=== PATIENT | female | born 1955 | race Caucasian/White ===

== ENCOUNTER 2019-01-12 08:18 | Inpatient (IN) | payer MEDICAID ==
[~2019-01-12] VITALS: Ht 160 cm; Wt 70.5 kg
--- NOTE | 2019-01-12 08:19 | NUR ---
ED Nurse Note: pt presents to ED c/o 12/30 right sided px in her abd and back that she describes as "stabbing and sharp." pt statest he px started last night and is accompanied with nausea, pt denies vomiting. she had a procedure done last wed for gastric drainage that is supposed to be draining internally. pt reports "feeling a burst" this AM and woke up wet, the dressing around the port is also saturated. she removed the cap to the port and green drainage came out that she is collecting into a ziploc bag. there is about 150 mL of dark green fluid in the bag. pt has 2 ports- one on her R neck and one on her chest that appear clean and intact. pt has a h/o stage 4 pancreatic CA that she started chemo for 2 days ago. pt's oncologist is Dr. Morales of [facility] network. her number is [phone] the surgeon who performed the procedure is Dr. Snider: [phone]
--- NOTE | 2019-01-12 08:22 | Emergency Room Report ---
History of Present Illness General Chief Complaint: Abdominal Pain Source: Patient, EMS Present Illness HPI 63yo F With history of pancreatic cancer comes to the ER for abdominal pain started just an hour prior to arrival. Patient reports she has an abdominal drain and thinks the cap came off of it, triggering the pain. She reports her drain placement was at [facility] and her first and last chemo was just 1 week ago. She denies f/c, vomiting, but reports that her cap came off in the middle of the night. Allergies: Coded Allergies: No Known Allergies (Unverified , 01/12/19) Patient History Past Medical History: see triage record Reviewed Nursing Documentation: PMH: Agreed; PSxH: Agreed Review of Systems All Other Systems: negative except mentioned in HPI Physical Exam Vital Signs Date Time Temp Pulse Resp B/P (MAP) Pulse Ox O2 Delivery O2 Flow Rate FiO2 01/12/19 08:14 97.9 88 20 110/74 (86) 98 Room Air Sp02 EP Interpretation: reviewed, normal General Appearance: alert, moderate distress Head: normocephalic Eyes: bilateral eye normal inspection, bilateral eye PERRL, bilateral eye EOMI ENT: normal ENT inspection, hearing grossly normal, normal pharynx, no angioedema, normal voice, moist mucus membranes Neck: normal inspection, full range of motion, supple, supple/symm/no masses Respiratory: chest non-tender, lungs clear, normal breath sounds, chest symmetrical, palpation of chest normal Cardiovascular #1: normal peripheral pulses, regular rate, rhythm Cardiovascular #2: 2+ radial (R), 2+ radial (L) Gastrointestinal: soft, no guarding, no rebound, tenderness - diffusely, other - anterior abdominal drain with bile in tubing and collection bag; no exit site erythema/warmth/purulence Rectal: deferred Genitourinary: normal inspection, no CVA tenderness Musculoskeletal: back normal, gait/station normal, normal range of motion, non- tender, no calf tenderness Neurologic: alert, responsive, sustainable agriculture specialist III-XII nml as tested, motor strength/tone normal, sensory intact, speech normal Psychiatric: judgement/insight normal, memory normal, mood/affect normal Skin: no rash, pallor, other - R chest port C/D/I no erythema or warmth Lymphatic: no adenopathy Medical Decision Making Diagnostic Impression: Primary Impression: Pancreatic cancer ER Course And found to have elevated liver enzymes, as well as low potassium, was given p.o. and IV potassium, CT scan revealed evidence for pancreatic mass which is not a new finding, she was still having intractable pain, despite Dilaudid and then morphine, and will be admitted for pain control. Rhythm Strip Diag. Results Rhythm Strip Time: 11:53 EP Interpretation: yes Rate: 107 Rhythm: NSR, no PVC's, no ectopy CT/MRI/US Diagnostic Results CT/MRI/US Diagnostic Results : Imaging Test Ordered: ct ap Impression pancreatic mass, bili drain in place Last Vital Signs Date Time Temp Pulse Resp B/P (MAP) Pulse Ox O2 Delivery O2 Flow Rate FiO2 01/12/19 08:14 97.9 88 20 110/74 (86) 98 Room Air Disposition: ADMITTED INPATIENT Condition: Stable DOUGLAS CHAUDHARY M.D Jan 12, 2019 08:22
[2019-01-12] MEDS ORDERED: HYDROmorphone 1mg/ml Carpuject IVP ONE (08:30)
[2019-01-12] MEDS ORDERED: Omnipaque-300 100ml vial INJ PRN (08:30)
[2019-01-12 09:05] VITALS: BP 110/74
[2019-01-12] MEDS ORDERED: NORCO 10-325 T1 EACH ORAL (09:06)
[2019-01-12 09:09] LABS: HEMATOCRIT 39.2 % (37.0-47.0); HEMOGLOBIN 13.1 G/DL (12.0-16.0); MEAN CORPUSCULAR VOLUME 94 FL (80-99); PLATELET COUNT 503 K/UL (150-450); RED BLOOD COUNT 4.16 M/UL (4.20-5.40); RED CELL DISTRIBUTION WIDTH 13.1 % (11.6-14.8); WHITE BLOOD COUNT 9.8 K/UL (4.8-10.8)
[2019-01-12] MEDS ORDERED: COMPAZINE10 MG ORAL (09:09)
[2019-01-12] MEDS ORDERED: PEPCID COMPLET1 EACH PO (09:09)
[2019-01-12] MEDS ORDERED: TYLENOL EXTRA500 MG ORAL (09:09)
[2019-01-12] MEDS ORDERED: MIRALAX17 G2 ORAL (09:10)
--- NOTE | 2019-01-12 09:10 | NUR ---
ED Nurse Note: ERMD notified of pt potassium of 2.9
[2019-01-12 09:16] LABS: ANION GAP 11 mmol/L (5-15); BLOOD UREA NITROGEN 15 mg/dL (7-18); CALCIUM 8.7 MG/DL (8.5-10.1); CARBON DIOXIDE 25 MMOL/L (21-32); CHLORIDE 100 MMOL/L (98-107); CREATININE 0.6 MG/DL (0.55-1.30); POTASSIUM 2.9 MMOL/L (3.5-5.1); SODIUM 136 MMOL/L (136-145)
[2019-01-12 09:28] LABS: ALANINE AMINOTRANSFERASE 90 U/L (12-78); ALBUMIN 2.3 G/DL (3.4-5.0); ALBUMIN/GLOBULIN RATIO 0.5 (1.0-2.7); ALKALINE PHOSPHATASE 306 U/L (46-116); ASPARTATE AMINO TRANSFERASE 88 U/L (15-37); BILIRUBIN,TOTAL 1.5 MG/DL (0.2-1.0)
--- NOTE | 2019-01-12 09:28 | NUR ---
ED Nurse Note: CT called to check on 4, pt consent signed
[2019-01-12 09:29] LABS: BILIRUBIN,DIRECT 0.8 MG/DL (0.0-0.3)
--- NOTE | 2019-01-12 09:38 | NUR ---
ED Nurse Note: CT is here to transport pt down for scan. HR is 105, BP 152/ 104, RR: 22, SpO2: 97% on room air
--- NOTE | 2019-01-12 09:50 | NUR ---
ED Nurse Note: pt has returned from CT, asking for something to drink. ERMD says ice chips only. vital signs are: RR 25, SpO2: 94% on room air, HR: 120, BP: 154/92
[2019-01-12 10:04] VITALS: BP 142/96
--- NOTE | 2019-01-12 10:19 | NUR ---
ED Nurse Note: pt is unable to provide a urine sample at this time. ERMD aware.
--- NOTE | 2019-01-12 10:36 | Diagnostic Imaging Report ---
CT ABDOMEN AND PELVIS WITH CONTRAST INDICATION: Abdominal pain TECHNIQUE: Continuous helical transaxial imaging of the abdomen and pelvis was obtained from the lung bases to the pubic symphysis during intravenous contrast administration. Coronal 2-D reformats were also obtained. Study obtained in a Siemens sensation [address] Automatic Exposure Control was utilized. Total Dose length Product (DLP): 830.[address] Dose Index Volume (CTDIvol): 15.1 mGy COMPARISON: None FINDINGS: Lower chest:: Basilar subsegmental atelectasis. Hepatobiliary:: There is mild intrahepatic biliary ductal dilatation. Percutaneous left lobe approach biliary drain terminates in the duodenum. Gallbladder is not distended but demonstrates thickened wall with pericholecystic fluid. Genitourinary:: Subcentimeter right renal hypodensity likely representing cysts. No hydronephrosis. Adrenals:: Unremarkable. Pancreas:: The region of the head and proximal body of the pancreas, there is ill-defined hypoenhancing soft tissue likely corresponding to patient's stated history of pancreatic cancer. Pancreatic duct is normal in caliber. The portal vein is severely attenuated at the level of the pancreatic head and not visualized to the confluence of the SMV, suggesting occlusion. Soft tissue density appears to encase the superior mesenteric artery, though evaluation of mesenteric vasculature is limited without complete phasic pancreatic protocol. Gastrointestinal:: Moderate hiatal hernia. No evidence of obstruction. Appendix is normal. Spleen: : Remarkable. Peritoneum:: Small volume ascites. There is diffuse peripancreatic and pericholecystic peritoneal fat stranding which extends into the right lower quadrant. There are multiple prominent portal and gastrohepatic lymph nodes. Bones and soft tissues:: Bones are diffusely demineralized. There is multilevel anterior wedging of thoracic and lumbar vertebral bodies. For example, wedge deformity of T12 vertebral body and L2 vertebral bodies. There is compression fracture with less than 25% loss of body height of L5, likely chronic given degree of sclerosis. IMPRESSION: 1. Appropriately positioned percutaneous left biliary drain with mild intrahepatic biliary ductal dilatation. 2. Ill-defined pancreatic head/proximal body mass, likely corresponding to stated history of pancreatic neoplasm. Please note evaluation of size and vascular involvement of pancreatic masses is incomplete prior examinations and without multiphasic pancreatic protocol. 3. 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 SMV confluence is not visualized. 4. Color wall thickening with pericholecystic fluid; in the absence of distended gallbladder, these findings are critical for acute pancreatitis and clinical correlation is recommended. The CT scanner at [facility] is accredited by the [employer] and the scans are performed using protocols designed to limit radiation exposure to as low as reasonably achievable to attain images of sufficient resolution adequate for diagnostic evaluation.
[2019-01-12] MEDS ORDERED: Morphine Sulfate 4mg/ml Inj (IV USE ONLY) IVP ONE (11:00)
[2019-01-12 11:15] LABS: APPEARANCE,URINE CLEAR; BILIRUBIN, URINE NEGATIVE (NEGATIVE); COLOR,URINE BROWN; GLUCOSE, URINE (UA) NEGATIVE (NEGATIVE); KETONES,URINE NEGATIVE (NEGATIVE); LEUKOCYTE ESTERASE ,URINE 1+ (NEGATIVE); NITRITE,URINE NEGATIVE (NEGATIVE); PH,URINE 5 (4.5-8.0); PROTEIN,URINE 2+ (NEGATIVE); UROBILINOGEN,URINE NORMAL MG/DL (0.0-1.0)
[2019-01-12 11:48] VITALS: BP 119/79
--- NOTE | 2019-01-12 12:50 | NUR ---
ED Nurse Note: 409 nurse unable to take report at this time, will call back in 10 min
--- NOTE | 2019-01-12 12:55 | NUR ---
ED Nurse Note: called and give report to nurse CAITIE Salcido
--- NOTE | 2019-01-12 13:38 | GI Initial Consult Note ---
History of Present Illness General Date patient seen: Jan 12, 2019 Time patient seen: 13:31 Reason for Hospitalization: Abdominal Pain Referring physician: LOU BONNER Reason for Consultation: ABDOMINAL PAIN Present Illness HPI GI consulted for abdominal pain. This is a 63-year-old female patient with history of recently diagnosed pancreatic cancer back in November 2018 presented today to the emergency room with complaint of abdominal pain for approximately 1 hour. Patient is status post a biliary drain placement at [facility] approximately 1 week ago. She reported that she had a first treatment of chemotherapy this past Thursday. The patient denied any nausea vomiting, denies any constipation or diarrhea. She states her pain medication was unable to relieve her pain. Laboratory data reviewed; no leukocytosis, no anemia, total bilirubin 1.8, AST 88, ALT 90, alkaline phosphatase 306, lipase of 286, potassium 2.9. Home Meds Reported Medications Polyethylene Glycol 3350* (MIRALAX*) 17 Gm Powd.pack, ORAL DAILY, PACKET 01/12/19 Famotidine/Ca Carb/Mag Hydrox (PEPCID COMPLETE TABLET CHEW) 1 Each Tab.chew, PO , TAB 01/12/19 Acetaminophen* (TYLENOL EXTRA STRENGTH*) 500 Mg Tablet, 500 MG ORAL Q6H PRN for Mild Pain/Temp > 100.5, TAB 0 Refills 01/12/19 Prochlorperazine (COMPAZINE*) 10 Mg Tablet, 10 MG ORAL Q6H PRN for Nausea & Vomiting, TAB 01/12/19 Hydrocodone Bit/Acetaminophen 10-325* (NORCO 10-325*) 1 Each Tablet, 1 TAB ORAL Q6H PRN for For Pain, #10 TAB 0 Refills PRN PAIN 01/12/19 Med list reviewed/reconciled: Yes Allergies: Coded Allergies: No Known Allergies (Unverified , 01/12/19) Patient History History Provided By: Patient, Medical Record Social History: Denies: smoking, alcohol use, drug use, other Review of Systems All Other Systems: negative except mentioned in HPI Physical Exam Vital Signs Date Time Temp Pulse Resp B/P (MAP) Pulse Ox O2 Delivery O2 Flow Rate FiO2 01/12/19 08:14 97.9 88 20 110/74 (86) 98 Room Air Sp02 EP Interpretation: reviewed, normal Labs Laboratory Tests Test 01/12/19 08:50 01/12/19 10:49 White Blood Count 9.8 K/UL (4.8-10.8) Red Blood Count 4.16 M/UL (4.20-5.40) L Hemoglobin 13.1 G/DL (12.0-16.0) Hematocrit 39.2 % (37.0-47.0) Mean Corpuscular Volume 94 FL (80-99) Mean Corpuscular Hemoglobin 31.5 PG (27.0-31.0) H Mean Corpuscular Hemoglobin Concent 33.3 G/DL (32.0-36.0) Red Cell Distribution Width 13.1 % (11.6-14.8) Platelet Count 503 K/UL (150-450) H Mean Platelet Volume 7.6 FL (6.5-10.1) Neutrophils (%) (Auto) % (45.0-75.0) Lymphocytes (%) (Auto) % (20.0-45.0) Monocytes (%) (Auto) % (1.0-10.0) Eosinophils (%) (Auto) % (0.0-3.0) Basophils (%) (Auto) % (0.0-2.0) Differential Total Cells Counted 100 Neutrophils % (Manual) 94 % (45-75) H Lymphocytes % (Manual) 4 % (20-45) L Monocytes % (Manual) 2 % (1-10) Eosinophils % (Manual) 0 % (0-3) Basophils % (Manual) 0 % (0-2) Band Neutrophils 0 % (0-8) Platelet Estimate Increased H Platelet Morphology Normal Prothrombin Time 10.9 SEC (9.30-11.50) Prothromb Time International Ratio 1.0 (0.9-1.1) Activated Partial Thromboplast Time 25 SEC (23-33) Sodium Level 136 MMOL/L (136-145) Potassium Level 2.9 MMOL/L (3.5-5.1) L Chloride Level 100 MMOL/L (98-107) Carbon Dioxide Level 25 MMOL/L (21-32) Anion Gap 11 mmol/L (5-15) Blood Urea Nitrogen 15 mg/dL (7-18) Creatinine 0.6 MG/DL (0.55-1.30) Estimat Glomerular Filtration Rate > 60 mL/min (>60) Glucose Level 114 MG/DL (74-106) H Calcium Level 8.7 MG/DL (8.5-10.1) Total Bilirubin 1.5 MG/DL (0.2-1.0) H Direct Bilirubin 0.8 MG/DL (0.0-0.3) H Aspartate Amino Transf (AST/SGOT) 88 U/L (15-37) H Alanine Aminotransferase (ALT/SGPT) 90 U/L (12-78) H Alkaline Phosphatase 306 U/L (46-116) H Total Protein 6.7 G/DL (6.4-8.2) Albumin 2.3 G/DL (3.4-5.0) L Globulin 4.4 g/dL Albumin/Globulin Ratio 0.5 (1.0-2.7) L Lipase 286 U/L (73-393) Urine Color Brown Urine Appearance Clear Urine pH 5 (4.5-8.0) Urine Specific [place] 1.010 (1.005-1.035) Urine Protein 2+ (NEGATIVE) H Urine Glucose (UA) Negative (NEGATIVE) Urine Ketones Negative (NEGATIVE) Urine Blood Negative (NEGATIVE) Urine Nitrite Negative (NEGATIVE) Urine Bilirubin Negative (NEGATIVE) Urine Urobilinogen Normal MG/DL (0.0-1.0) Urine Leukocyte Esterase 1+ (NEGATIVE) H Urine RBC 0-2 /HPF (0 - 2) Urine WBC 2-4 /HPF (0 - 2) Urine Squamous Epithelial Cells Few /LPF (NONE/OCC) Urine Bacteria Few /HPF (NONE) Urine Mucus Few /LPF (NONE/OCC) H General Appearance: well appearing, no apparent distress, alert Head: normocephalic EENT: PERRL/EOMI, normal ENT inspection Neck: supple Respiratory: normal breath sounds, no respiratory distress Cardiovascular: normal rate Gastrointestinal: normal inspection, non tender, soft, normal bowel sounds, non -distended Rectal: deferred Genitourinary: no CVA tenderness Musculoskeletal: normal inspection, back normal Neurologic: normal inspection, alert, oriented x3, responsive Psychiatric: normal inspection, judgement/insight normal, memory normal Skin: normal inspection, normal color, no rash, warm/dry, palpation normal, well hydrated Lymphatic: normal inspection, no adenopathy Current Medications Current Medications Medications (Trade) Dose Ordered Sig/Zuleima Route PRN Reason Start Time Stop Time Status Last Admin Dose Admin Iohexol (OMNIPAQUE-300 100ml) 100 ml NOW PRN INJ Radiology Procedure 01/12/19 08:30 01/14/19 08:30 GI: Plan Problems: (1) Abdominal pain (2) Biliary drain displacement (3) Pancreatic cancer Plan Abdominal pelvis CT reviewed 1. Appropriately positioned percutaneous left biliary drain with mild intrahepatic biliary ductal dilatation. 2. Ill-defined pancreatic head/proximal body mass, likely corresponding to stated history of pancreatic neoplasm. Please note evaluation of size and vascular involvement of pancreatic masses is incomplete prior examinations and without multiphasic pancreatic protocol. 3. 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 SMV confluence is not visualized. 4. Color wall thickening with pericholecystic fluid; in the absence of distended gallbladder, these findings are critical for acute pancreatitis and clinical correlation is recommended. No plans for GI procedures at this time. Symptomatic treatment Patient may benefit from a surgical consultation given possible biliary drain displacement. Pain management ppi Trend LFTs will follow with additional recommendations Discussed with Dr. Rocha. Thank you for this patient referral, we will follow. The patient was seen and examined at bedside and all new and available data was reviewed in the patients chart. I agree with the above findings, impression and plan. (Patient seen earlier today. Signature stamp does not reflect patient encounter time.). - MD Marybeth Cook,[facility] STRUCTURAL TECHNICIAN Jan 12, 2019 13:38
[2019-01-12] MEDS ORDERED: HYDROmorphone 1mg/ml Carpuject IVP PRN (13:45)
--- NOTE | 2019-01-12 14:44 | NUR ---
NURSE NOTES: I received telephone report from CAITIE Banerjee ER; patient awake, alert x4; on room air, no sing of distress and shortness of breath; no sing of chest pain; IV LAC 18G flushes well; belonging list signed by ER nurse and receiving nurse; there is a bile drainage on the right side; call light within reach; will keep monitoring.
[2019-01-12] MEDS: D5 1/2NS w/KCl 20mEq 1,000 ML IV SCH (14:56)
[2019-01-12 14:57] VITALS: BP 104/75
--- NOTE | 2019-01-12 14:57 | Consultation ---
History of Present Illness General Date patient seen: Jan 12, 2019 Reason for Hospitalization: Abdominal Pain Present Illness HPI 63-year-old female patient with history of recently diagnosed pancreatic cancer in November 2018 presented to the emergency [place] [facility] [place] complaint of abdominal pain for approximately 1 hour. Patient is status post a biliary drain placement at [facility] approximately 1 week ago. She reported that she had a first treatment of chemotherapy this past Thursday. The patient denied any nausea vomiting, denies any constipation or diarrhea. She states her pain medication was unable to relieve her pain. no fever or chills. labs as below. CT noted. surgery called to assist with care and management. tube checked The patient denied any nausea vomiting, denies any constipation or diarrhea. She states her pain medication was unable to relieve her pain. states pain all over. pain in hips, legs, abd, arms. asking for more pain medication Allergies: Coded Allergies: No Known Allergies (Unverified , 01/12/19) Medication History Scheduled Polyethylene Glycol 3350* (Miralax*), Unknown Dose ORAL DAILY, (Reported) Scheduled PRN Acetaminophen* (Tylenol Extra Strength*), 500 MG ORAL Q6H PRN for Mild Pain/ Temp > 100.5, (Reported) Hydrocodone Bit/Acetaminophen 10-325* ([place] 10-325*), 1 TAB ORAL Q6H PRN for For Pain, (Reported) Prochlorperazine (Compazine*), 10 MG ORAL Q6H PRN for Nausea & Vomiting, ( Reported) Miscellaneous Medications Famotidine/Ca Carb/Mag Hydrox (Pepcid Complete Tablet Chew), Unknown Dose PO, ( Reported) Patient History History Provided By: Patient, Medical Record, PMD Healthcare decision maker Resuscitation status Advanced Directive on File Past Medical/Surgical History Past Medical/Surgical History: (1) Abdominal pain (2) Biliary drain displacement (3) Pancreatic cancer Review of Systems Review of Symptoms General ROS: no weight loss or fever Psychological ROS: no depression or mood changes, no memory loss Ophthalmic ROS: no visual changes or eye irritation ENT ROS: no nasal congestion, hearing loss, dizziness Allergy and Immunology ROS: no allergic symptoms or urticaria Hematological and Lymphatic ROS: no swollen glands, unusual bleeding or bruising Endocrine ROS: no polyuria, polydipsia, weight changes, temperature intolerance Respiratory ROS: no cough, shortness of breath, or wheezing Cardiovascular ROS: no chest pain or dyspnea on exertion Gastrointestinal ROS: abdominal pain, bright red blood in stool. Musculoskeletal ROS: no myalgias or arthralgias Neurological ROS: no TIA or stroke symptoms Dermatological ROS: no new or changing skin lesions, rashes or pruritis Physical Exam Physical Exam General appearance: alert, cooperative, no distress, appears stated age Head: Normocephalic, without obvious abnormality, atraumatic Eyes: conjunctivae/corneas clear. PERRL, EOM's intact. Fundi benign Throat: Lips, mucosa, and tongue normal. Teeth and gums normal Neck: supple, symmetrical, trachea midline, no adenopathy, thyroid: not enlarged, symmetric, no tenderness/mass/nodules, no carotid bruit and no JVD Lungs: clear to auscultation bilaterally Heart: regular rate and rhythm, S1, S2 normal, no murmur, click, rub or gallop Abdomen: soft, minimal tender. Bowel sounds normal. No masses, no organomegaly Extremities: extremities normal, atraumatic, no cyanosis or edema +drain cap Pulses: 2+ and symmetric Skin: Skin color, texture, turgor normal. No rashes or lesions Neurologic: Grossly normal Last 24 Hour Vital Signs Date Time Temp Pulse Resp B/P (MAP) Pulse Ox O2 Delivery O2 Flow Rate FiO2 01/12/19 11:49 97.9 01/12/19 11:48 27 119/79 96 Room Air 01/12/19 10:04 25 142/96 97 Room Air 01/12/19 10:00 97.9 01/12/19 09:05 97.9 20 110/74 98 Room Air 01/12/19 09:05 88 20 Room Air 01/12/19 08:14 97.9 88 20 110/74 (86) 98 Room Air Laboratory Tests Test 01/12/19 08:50 01/12/19 10:49 White Blood Count 9.8 K/UL (4.8-10.8) Red Blood Count 4.16 M/UL (4.20-5.40) L Hemoglobin 13.1 G/DL (12.0-16.0) Hematocrit 39.2 % (37.0-47.0) Mean Corpuscular Volume 94 FL (80-99) Mean Corpuscular Hemoglobin 31.5 PG (27.0-31.0) H Mean Corpuscular Hemoglobin Concent 33.3 G/DL (32.0-36.0) Red Cell Distribution Width 13.1 % (11.6-14.8) Platelet Count 503 K/UL (150-450) H Mean Platelet Volume 7.6 FL (6.5-10.1) Neutrophils (%) (Auto) % (45.0-75.0) Lymphocytes (%) (Auto) % (20.0-45.0) Monocytes (%) (Auto) % (1.0-10.0) Eosinophils (%) (Auto) % (0.0-3.0) Basophils (%) (Auto) % (0.0-2.0) Differential Total Cells Counted 100 Neutrophils % (Manual) 94 % (45-75) H Lymphocytes % (Manual) 4 % (20-45) L Monocytes % (Manual) 2 % (1-10) Eosinophils % (Manual) 0 % (0-3) Basophils % (Manual) 0 % (0-2) Band Neutrophils 0 % (0-8) Platelet Estimate Increased H Platelet Morphology Normal Prothrombin Time 10.9 SEC (9.30-11.50) Prothromb Time International Ratio 1.0 (0.9-1.1) Activated Partial Thromboplast Time 25 SEC (23-33) Sodium Level 136 MMOL/L (136-145) Potassium Level 2.9 MMOL/L (3.5-5.1) L Chloride Level 100 MMOL/L (98-107) Carbon Dioxide Level 25 MMOL/L (21-32) Anion Gap 11 mmol/L (5-15) Blood Urea Nitrogen 15 mg/dL (7-18) Creatinine 0.6 MG/DL (0.55-1.30) Estimat Glomerular Filtration Rate > 60 mL/min (>60) Glucose Level 114 MG/DL (74-106) H Calcium Level 8.7 MG/DL (8.5-10.1) Total Bilirubin 1.5 MG/DL (0.2-1.0) H Direct Bilirubin 0.8 MG/DL (0.0-0.3) H Aspartate Amino Transf (AST/SGOT) 88 U/L (15-37) H Alanine Aminotransferase (ALT/SGPT) 90 U/L (12-78) H Alkaline Phosphatase 306 U/L (46-116) H Total Protein 6.7 G/DL (6.4-8.2) Albumin 2.3 G/DL (3.4-5.0) L Globulin 4.4 g/dL Albumin/Globulin Ratio 0.5 (1.0-2.7) L Lipase 286 U/L (73-393) Urine Color Brown Urine Appearance Clear Urine pH 5 (4.5-8.0) Urine Specific [place] 1.010 (1.005-1.035) Urine Protein 2+ (NEGATIVE) H Urine Glucose (UA) Negative (NEGATIVE) Urine Ketones Negative (NEGATIVE) Urine Blood Negative (NEGATIVE) Urine Nitrite Negative (NEGATIVE) Urine Bilirubin Negative (NEGATIVE) Urine Urobilinogen Normal MG/DL (0.0-1.0) Urine Leukocyte Esterase 1+ (NEGATIVE) H Urine RBC 0-2 /HPF (0 - 2) Urine WBC 2-4 /HPF (0 - 2) Urine Squamous Epithelial Cells Few /LPF (NONE/OCC) Urine Bacteria Few /HPF (NONE) Urine Mucus Few /LPF (NONE/OCC) H Height (Feet): 5 Height (Inches): 3.00 Weight (Pounds): 165 Medications Current Medications Medications (Trade) Dose Ordered Sig/Zuleima Route PRN Reason Start Time Stop Time Status Last Admin Dose Admin Dextrose (Dextrose 50%) 25 ml Q30M PRN IV Hypoglycemia 01/12/19 13:45 02/11/19 13:44 Dextrose (Dextrose 50%) 50 ml Q30M PRN IV Hypoglycemia 01/12/19 13:45 02/11/19 13:44 Dextrose/ Electrolytes 1,000 ml @ 75 mls/hr [id number] IV 01/12/19 15:00 02/11/19 14:59 Hydromorphone HCl (Dilaudid) 1 mg Q4H PRN IVP Moderate Pain (Pain Scale 4-6) 01/12/19 13:45 01/19/19 13:44 Hydromorphone HCl (Dilaudid) 2 mg Q4H PRN IVP Severe Pain (Pain Scale 7-10) 01/12/19 13:45 01/19/19 13:44 Iohexol (OMNIPAQUE-300 100ml) 100 ml NOW PRN INJ Radiology Procedure 01/12/19 08:30 01/14/19 08:30 Ondansetron HCl (Zofran) 4 mg Q6H PRN IVP Nausea & Vomiting 01/12/19 13:45 02/11/19 13:44 Pantoprazole (Protonix) 40 mg DAILY IV 01/13/19 09:00 02/12/19 08:59 Assessment/Plan Problem List: (1) Abdominal pain Assessment & Plan: 63-year-old female patient with history of recently diagnosed pancreatic cancer in November 2018 presented to the emergency room [place] [facility] [place] complaint of abdominal pain for approximately 1 hour. Patient is status post a biliary drain placement at [facility] approximately 1 week ago. She reported that she had a first treatment of chemotherapy this past Thursday. The patient denied any nausea vomiting, denies any constipation or diarrhea. She states her pain medication was unable to relieve her pain. no fever or chills. labs as below. C Tnoted. surgery called to assist with care and management. tube checked okay for diet leave tube in place with cap stable otherwise from surgical standpoint no acute surgical intervention planned iv fluids trend labs will monitor and follow with exam thank you ICD Codes: R10.9 - Unspecified abdominal pain SNOMED: 65029369 (2) Biliary drain displacement Assessment & Plan: IMPRESSION: 1. Appropriately positioned percutaneous left biliary drain with mild intrahepatic biliary ductal dilatation. 2. Ill-defined pancreatic head/proximal body mass, likely corresponding to stated history of pancreatic neoplasm. Please note evaluation of size and vascular involvement of pancreatic masses is incomplete prior examinations and without multiphasic pancreatic protocol. 3. 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 SMV confluence is not visualized. 4. Color wall thickening with pericholecystic fluid; in the absence of distended gallbladder, these findings are critical for acute pancreatitis and clinical correlation is recommended. ICD Codes: T85.520A - Displacement of bile duct prosthesis, initial encounter SNOMED: 384233853 (3) Pancreatic cancer Assessment & Plan: currently receiving chemo cont with outpatient chemo Tx ICD Codes: C25.9 - Malignant neoplasm of pancreas, unspecified SNOMED: 506151617 Jim Gates Jan 12, 2019 14:57
[2019-01-12 16:45] VITALS: BP 122/75
[2019-01-12] MEDS ORDERED: Morphine Sulfate 4mg/ml Inj (IV USE ONLY) IVP PRN (16:45)
[2019-01-12] MEDS: Pantoprazole Inj IVP SCH (17:10)
[2019-01-12] MEDS: Morphine Sulfate 4mg/ml Inj (IV USE ONLY) IVP PRN ×2 (17:12→21:14)
--- NOTE | 2019-01-12 19:20 | NUR ---
NURSE NOTES: Received report from CAITIE Chow. AAO x 4, on room air. IV sites intact and running D5 1/2 NS with KCL 75cc/hr. Pt has bile drainage bag on R upper quadrant and intact. Pt c/o pain 9/10 on abd. Bed locked, lowest position, side rails up x 2, alarm on, call light within reach. Will continue to monitor.
--- NOTE | 2019-01-12 19:50 | NUR ---
HAND-OFF: Report given to CAITIE Casarez.
[2019-01-12 20:00] VITALS: BP 110/75
[2019-01-13] VITALS: BP 122/80
[2019-01-13] MEDS: Morphine Sulfate 4mg/ml Inj (IV USE ONLY) IVP PRN ×5 (00:58→17:22)
--- NOTE | 2019-01-13 01:01 | NUR ---
NURSE NOTES: Pt is really in pain 10/10 on her abdomen. States pain med was unable to relieve pain. Morphine 8mg IV given @ 2113. RN administered 8mg IV @ 57. Charge nurse aware it. Pt asked if pain med frequency can be changed. Left message Dr. Rocha and waiting for call back.
[2019-01-13 04:00] VITALS: BP 119/78
[2019-01-13] MEDS: D5 1/2NS w/KCl 20mEq 1,000 ML IV SCH ×2 (04:58→17:40)
[2019-01-13 06:33] LABS: HEMATOCRIT 34.6 % (37.0-47.0); HEMOGLOBIN 11.9 G/DL (12.0-16.0); MEAN CORPUSCULAR VOLUME 95 FL (80-99); PLATELET COUNT 403 K/UL (150-450); RED BLOOD COUNT 3.66 M/UL (4.20-5.40); RED CELL DISTRIBUTION WIDTH 12.9 % (11.6-14.8); WHITE BLOOD COUNT 12.7 K/UL (4.8-10.8)
--- NOTE | 2019-01-13 07:05 | NUR ---
NURSE NOTES: HANDOFF RECEIVED FROM CAITIE CARTAGENA. PATIENT AWAKE AND ALERT AND ABLE TO MAKE NEEDS KNOWN. PATIENT IV IS CLEAN DRY AND INTACT RUNNING PRESCRIBED FLUIDS. BED IN THE LOW AND LOCKED POSITION, CALL LIGHT WITHIN REACH. PATIENT HAS A BILIARY DRAIN THAT IS PATENT AND DRAINING. WILL CONTINUE TO MONITOR.
[2019-01-13 07:12] LABS: ALANINE AMINOTRANSFERASE 68 U/L (12-78); ALBUMIN 1.7 G/DL (3.4-5.0); ALBUMIN/GLOBULIN RATIO 0.4 (1.0-2.7); ALKALINE PHOSPHATASE 194 U/L (46-116); ANION GAP 5 mmol/L (5-15); ASPARTATE AMINO TRANSFERASE 45 U/L (15-37); BILIRUBIN,TOTAL 1.2 MG/DL (0.2-1.0); BLOOD UREA NITROGEN 9 mg/dL (7-18); CALCIUM 8.1 MG/DL (8.5-10.1); CARBON DIOXIDE 27 MMOL/L (21-32); CHLORIDE 102 MMOL/L (98-107); CREATININE 0.4 MG/DL (0.55-1.30); POTASSIUM 3.7 MMOL/L (3.5-5.1); SODIUM 134 MMOL/L (136-145)
[2019-01-13 07:15] LABS: AMYLASE 14 U/L (25-115)
[2019-01-13 07:17] LABS: BILIRUBIN,DIRECT 0.8 MG/DL (0.0-0.3)
[2019-01-13 07:32] LABS: INR 1.3 (0.9-1.1)
--- NOTE | 2019-01-13 07:41 | NUR ---
HAND-OFF: Report given to CAITIE Tillman.
[2019-01-13 08:00] VITALS: BP 126/79
[2019-01-13] MEDS ORDERED: Pantoprazole Inj IV SCH (09:00)
[2019-01-13] MEDS: Pantoprazole Inj IVP SCH (09:10)
--- NOTE | 2019-01-13 11:17 | NUR ---
*-* INSURANCE *-* ALL AVAILABLE CLINICALS HAVE BEEN FAXED TO: REF#[id number] - FOR TRACKING PURPOSES THIS IS SHARED RISK NO CM ASSIGNED PH#[phone] FAX#[phone] REVIEWS/CLINICALS & [facility]LY [facility] TRACKING#[id number] CM: TAMMY PH#[phone] EXT [phone] FAX#[phone] REVIEWS/CLINICALS
[2019-01-13 12:00] VITALS: BP 117/74
--- NOTE | 2019-01-13 12:58 | GI Progress Note ---
Assessment/Plan Problems: (1) Pancreatic cancer ICD Codes: C25.9 - Malignant neoplasm of pancreas, unspecified SNOMED: 587810602 (2) Biliary drain displacement ICD Codes: T85.520A - Displacement of bile duct prosthesis, initial encounter SNOMED: 779086328 (3) Abdominal pain ICD Codes: R10.9 - Unspecified abdominal pain SNOMED: 18189725 Status: unchanged Status Narrative Discussed with Dr. Rocha Assessment/Plan Abdominal pelvis CT reviewed 1. Appropriately positioned percutaneous left biliary drain with mild intrahepatic biliary ductal dilatation. 2. Ill-defined pancreatic head/proximal body mass, likely corresponding to stated history of pancreatic neoplasm. Please note evaluation of size and vascular involvement of pancreatic masses is incomplete prior examinations and without multiphasic pancreatic protocol. 3. 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 SMV confluence is not visualized. 4. Color wall thickening with pericholecystic fluid; in the absence of distended gallbladder, these findings are critical for acute pancreatitis and clinical correlation is recommended. No plans for GI procedures at this time. Symptomatic treatment surgical recommendations, no interventions at this time consider pain service, patient receiving 8mg morphine IVq4 with min to no relief. ppi Trend LFTs advance diet as tolerated will follow with additional recommendations The patient was seen and examined at bedside and all new and available data was reviewed in the patients chart. I agree with the above findings, impression and plan. (Patient seen earlier today. Signature stamp does not reflect patient encounter time.). - Indra Rocha MD Subjective Subjective Patient continues to complain of severe abdominal pain States 8 mg of morphine is not relieving her pain Objective Last 24 Hour Vital Signs Date Time Temp Pulse Resp B/P (MAP) Pulse Ox O2 Delivery O2 Flow Rate FiO2 01/13/19 12:00 98.4 119 17 117/74 (88) 93 01/13/19 09:00 Room Air 01/13/19 08:00 98.2 112 19 126/79 (95) 98 01/13/19 04:00 99.2 115 17 119/78 (92) 92 01/13/19 00:00 99.6 115 18 122/80 (94) 92 01/12/19 21:00 Room Air 01/12/19 20:00 99.6 118 17 110/75 (87) 92 01/12/19 17:42 102.0 01/12/19 16:45 102.0 105 20 122/75 (91) 95 01/12/19 15:47 Room Air 01/12/19 14:57 98.0 107 18 104/75 (85) 94 Intake and Output 01/12/19 01/13/19 19:00 07:00 Intake Total 450 ml 900 ml Output Total 120 ml 450 ml Balance 330 ml 450 ml Intake Oral 150 ml 0 ml IV Total 300 ml 900 ml Output Urine Total 120 ml Drainage Total 450 ml # Voids 1 3 Laboratory Tests Test 01/13/19 05:30 White Blood Count 12.7 K/UL (4.8-10.8) H Red Blood Count 3.66 M/UL (4.20-5.40) L Hemoglobin 11.9 G/DL (12.0-16.0) L Hematocrit 34.6 % (37.0-47.0) L Mean Corpuscular Volume 95 FL (80-99) Mean Corpuscular Hemoglobin 32.5 PG (27.0-31.0) H Mean Corpuscular Hemoglobin Concent 34.3 G/DL (32.0-36.0) Red Cell Distribution Width 12.9 % (11.6-14.8) Platelet Count 403 K/UL (150-450) Mean Platelet Volume 7.9 FL (6.5-10.1) Neutrophils (%) (Auto) % (45.0-75.0) Lymphocytes (%) (Auto) % (20.0-45.0) Monocytes (%) (Auto) % (1.0-10.0) Eosinophils (%) (Auto) % (0.0-3.0) Basophils (%) (Auto) % (0.0-2.0) Differential Total Cells Counted 100 Neutrophils % (Manual) 95 % (45-75) H Lymphocytes % (Manual) 3 % (20-45) L Monocytes % (Manual) 1 % (1-10) Eosinophils % (Manual) 1 % (0-3) Basophils % (Manual) 0 % (0-2) Band Neutrophils 0 % (0-8) Platelet Estimate Adequate Platelet Morphology Normal Red Blood Cell Morphology Normal Prothrombin Time 13.6 SEC (9.30-11.50) H Prothromb Time International Ratio 1.3 (0.9-1.1) H Activated Partial Thromboplast Time 33 SEC (23-33) Sodium Level 134 MMOL/L (136-145) L Potassium Level 3.7 MMOL/L (3.5-5.1) Chloride Level 102 MMOL/L (98-107) Carbon Dioxide Level 27 MMOL/L (21-32) Anion Gap 5 mmol/L (5-15) Blood Urea Nitrogen 9 mg/dL (7-18) Creatinine 0.4 MG/DL (0.55-1.30) L Estimat Glomerular Filtration Rate > 60 mL/min (>60) Glucose Level 87 MG/DL (74-106) Calcium Level 8.1 MG/DL (8.5-10.1) L Total Bilirubin 1.2 MG/DL (0.2-1.0) H Direct Bilirubin 0.8 MG/DL (0.0-0.3) H Aspartate Amino Transf (AST/SGOT) 45 U/L (15-37) H Alanine Aminotransferase (ALT/SGPT) 68 U/L (12-78) Alkaline Phosphatase 194 U/L (46-116) H Total Protein 5.7 G/DL (6.4-8.2) L Albumin 1.7 G/DL (3.4-5.0) L Globulin 4.0 g/dL Albumin/Globulin Ratio 0.4 (1.0-2.7) L Amylase Level 14 U/L (25-115) L Lipase 53 U/L (73-393) L Height (Feet): 5 Height (Inches): 3.00 Weight (Pounds): 132 General Appearance: WD/WN, no apparent distress, alert Cardiovascular: normal rate Respiratory/Chest: normal breath sounds, no respiratory distress Abdominal Exam: normal bowel sounds, non tender, soft Extremities: normal range of motion, non-tender Jeff Rueda ASSOCIATE [employer] Jan 13, 2019 12:58
[2019-01-13] MEDS ORDERED: Morphine Sulfate 4mg/ml Inj (IV USE ONLY) IVP PRN (13:00)
--- NOTE | 2019-01-13 14:33 | NUR ---
NURSE NOTES: PATIENTS DAUGHTER CALLED WITH THE NUMBER FOR THE CANCER SPECIALIST, ASKED TO FORWARD THAT NUMBER TO DR BONNER. CALLED DR BONNER AND LEFT A MESSAGE. PATIENT WANTED ME TO NOTIFY MD THAT SHE IS STILL MAIN THAT IS NOT BEING WELL CONTROLLED. PATIENTS DAUGHTER ALSO STATED THAT HER MOTHERS CANCER SPECIALIST WILL BE FORWARDING HER MEDICAL RECORDS TO US.
[2019-01-13 16:00] VITALS: BP 122/78
--- NOTE | 2019-01-13 17:45 | Surgery Progress Note ---
Surgery Progress Note Subjective Additional Comments c/o pain all over and wants higher dose of narcotic pain medication labs noted exam stable. drain okay Objective Last 24 Hour Vital Signs Date Time Temp Pulse Resp B/P (MAP) Pulse Ox O2 Delivery O2 Flow Rate FiO2 01/13/19 16:00 98.2 101 17 122/78 (93) 98 01/13/19 12:00 98.4 119 17 117/74 (88) 93 01/13/19 09:00 Room Air 01/13/19 08:00 98.2 112 19 126/79 (95) 98 01/13/19 04:00 99.2 115 17 119/78 (92) 92 01/13/19 00:00 99.6 115 18 122/80 (94) 92 01/12/19 21:00 Room Air 01/12/19 20:00 99.6 118 17 110/75 (87) 92 I&O Intake and Output 01/12/19 01/13/19 18:59 06:59 Intake Total 450 ml 900 ml Output Total 120 ml 450 ml Balance 330 ml 450 ml Intake Oral 150 ml 0 ml IV Total 300 ml 900 ml Output Urine Total 120 ml Drainage Total 450 ml # Voids 1 3 Dressing: dry Drains: other Cardiovascular: RSR Respiratory: decreased breath sounds Abdomen: soft, present bowel sounds Extremities: no cyanosis Laboratory Tests Test 01/13/19 05:30 White Blood Count 12.7 K/UL (4.8-10.8) H Red Blood Count 3.66 M/UL (4.20-5.40) L Hemoglobin 11.9 G/DL (12.0-16.0) L Hematocrit 34.6 % (37.0-47.0) L Mean Corpuscular Volume 95 FL (80-99) Mean Corpuscular Hemoglobin 32.5 PG (27.0-31.0) H Mean Corpuscular Hemoglobin Concent 34.3 G/DL (32.0-36.0) Red Cell Distribution Width 12.9 % (11.6-14.8) Platelet Count 403 K/UL (150-450) Mean Platelet Volume 7.9 FL (6.5-10.1) Neutrophils (%) (Auto) % (45.0-75.0) Lymphocytes (%) (Auto) % (20.0-45.0) Monocytes (%) (Auto) % (1.0-10.0) Eosinophils (%) (Auto) % (0.0-3.0) Basophils (%) (Auto) % (0.0-2.0) Differential Total Cells Counted 100 Neutrophils % (Manual) 95 % (45-75) H Lymphocytes % (Manual) 3 % (20-45) L Monocytes % (Manual) 1 % (1-10) Eosinophils % (Manual) 1 % (0-3) Basophils % (Manual) 0 % (0-2) Band Neutrophils 0 % (0-8) Platelet Estimate Adequate Platelet Morphology Normal Red Blood Cell Morphology Normal Prothrombin Time 13.6 SEC (9.30-11.50) H Prothromb Time International Ratio 1.3 (0.9-1.1) H Activated Partial Thromboplast Time 33 SEC (23-33) Sodium Level 134 MMOL/L (136-145) L Potassium Level 3.7 MMOL/L (3.5-5.1) Chloride Level 102 MMOL/L (98-107) Carbon Dioxide Level 27 MMOL/L (21-32) Anion Gap 5 mmol/L (5-15) Blood Urea Nitrogen 9 mg/dL (7-18) Creatinine 0.4 MG/DL (0.55-1.30) L Estimat Glomerular Filtration Rate > 60 mL/min (>60) Glucose Level 87 MG/DL (74-106) Calcium Level 8.1 MG/DL (8.5-10.1) L Total Bilirubin 1.2 MG/DL (0.2-1.0) H Direct Bilirubin 0.8 MG/DL (0.0-0.3) H Aspartate Amino Transf (AST/SGOT) 45 U/L (15-37) H Alanine Aminotransferase (ALT/SGPT) 68 U/L (12-78) Alkaline Phosphatase 194 U/L (46-116) H Total Protein 5.7 G/DL (6.4-8.2) L Albumin 1.7 G/DL (3.4-5.0) L Globulin 4.0 g/dL Albumin/Globulin Ratio 0.4 (1.0-2.7) L Amylase Level 14 U/L (25-115) L Lipase 53 U/L (73-393) L Plan Problems: (1) Abdominal pain Assessment & Plan: 63-year-old female patient with history of recently diagnosed pancreatic cancer in November 2018 presented to the emergency room at [facility] with complaint of abdominal pain for approximately 1 hour. Patient is status post a biliary drain placement at [facility] approximately 1 week ago. She reported that she had a first treatment of chemotherapy this past Thursday. The patient denied any nausea vomiting, denies any constipation or diarrhea. She states her pain medication was unable to relieve her pain. no fever or chills. labs as below. C Tnoted. surgery called to assist with care and management. tube checked okay for diet leave tube in place with cap stable otherwise from surgical standpoint no acute surgical intervention planned iv fluids trend labs will monitor and follow with exam thank you (2) Biliary drain displacement Assessment & Plan: IMPRESSION: 1. Appropriately positioned percutaneous left biliary drain with mild intrahepatic biliary ductal dilatation. 2. Ill-defined pancreatic head/proximal body mass, likely corresponding to stated history of pancreatic neoplasm. Please note evaluation of size and vascular involvement of pancreatic masses is incomplete prior examinations and without multiphasic pancreatic protocol. 3. 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 SMV confluence is not visualized. 4. Color wall thickening with pericholecystic fluid; in the absence of distended gallbladder, these findings are critical for acute pancreatitis and clinical correlation is recommended. (3) Pancreatic cancer Assessment & Plan: currently receiving chemo cont with outpatient chemo Tx Jim Gates Jan 13, 2019 17:45
--- NOTE | 2019-01-13 18:15 | NUR ---
NURSE NOTES: SUSAN ALCANTAR CALLED FOR UPDATE ON PATIENT. EXPLAINED THAT PATIENT IS STILL EXPERIENCING SEVERE PAIN EVEN AFTER 8MG MORPHINE ADMINISTERED. SUSAN STATED TO DISCONTINUE THE 8MG OF MORPHINE AND ORDER 1MG DILAUDID IV Q2 HOURS.
--- NOTE | 2019-01-13 19:58 | NUR ---
HAND-OFF: Report given to CAITIE EDWARD.
--- NOTE | 2019-01-13 19:59 | NUR ---
Nurse notes Pt awake alert x4 able to make needs known. no distress noted nasal cannula @2 liters intact. 02 sat @ 97%. Pt Iv to LAC running D51/2 20meq @ 75ml/hr intact. Pt able to void freely. Biliary drainage to left upper quadrant intact to gravitation. Pt requested PRN pain medications q 2 hours as ordered for pain level of 10 to abdomen Pt bed in lowest position with call light in reach. Pt instructed to call for assistance. pt verbalized understanding will continue to monitor condition
[2019-01-13 20:00] VITALS: BP 118/65
[2019-01-13] MEDS: HYDROmorphone 1mg/ml Carpuject IVP PRN ×2 (20:02→22:14)
--- NOTE | 2019-01-13 20:02 | NUR ---
Nursing notes d51/2Ns KCL 20meq @ 75ml/hr to LFA patent Addendum: 01/13/19 at 2318 by Elise Wilkins RN D51/2NS KCL+20meq @ 75ml/hr to LFA patent
--- NOTE | 2019-01-13 20:02 | NUR ---
nurse notes error Pt biliary drainage to upper middle abdomen in place draining to gravitation
--- NOTE | 2019-01-13 20:30 | Consultation ---
History of Present Illness General Chief Complaint: Abdominal Pain Referring physician: LOU BONNER Reason for Consultation: ABDOMINAL PAIN Present Illness Allergies: Coded Allergies: No Known Allergies (Unverified , 01/12/19) Medication History Scheduled Polyethylene Glycol 3350* (Miralax*), Unknown Dose ORAL DAILY, (Reported) Scheduled PRN Acetaminophen* (Tylenol Extra Strength*), 500 MG ORAL Q6H PRN for Mild Pain/ Temp > 100.5, (Reported) Hydrocodone Bit/Acetaminophen 10-325* ([place] 10-325*), 1 TAB ORAL Q6H PRN for For Pain, (Reported) Prochlorperazine (Compazine*), 10 MG ORAL Q6H PRN for Nausea & Vomiting, ( Reported) Miscellaneous Medications Famotidine/Ca Carb/Mag Hydrox (Pepcid Complete Tablet Chew), Unknown Dose PO, ( Reported) Patient History Healthcare decision maker Yolande Castaneda Resuscitation status Full Code Advanced Directive on File No Physical Exam Last 24 Hour Vital Signs Date Time Temp Pulse Resp B/P (MAP) Pulse Ox O2 Delivery O2 Flow Rate FiO2 01/13/19 18:46 101.0 01/13/19 16:00 98.2 101 17 122/78 (93) 98 01/13/19 12:00 98.4 119 17 117/74 (88) 93 01/13/19 09:00 Room Air 01/13/19 08:00 98.2 112 19 126/79 (95) 98 01/13/19 04:00 99.2 115 17 119/78 (92) 92 01/13/19 00:00 99.6 115 18 122/80 (94) 92 01/12/19 21:00 Room Air Intake and Output 01/12/19 01/13/19 19:00 07:00 Intake Total 450 ml 900 ml Output Total 120 ml 450 ml Balance 330 ml 450 ml Intake Oral 150 ml 0 ml IV Total 300 ml 900 ml Output Urine Total 120 ml Drainage Total 450 ml # Voids 1 3 Laboratory Tests Test 01/13/19 05:30 White Blood Count 12.7 K/UL (4.8-10.8) H Red Blood Count 3.66 M/UL (4.20-5.40) L Hemoglobin 11.9 G/DL (12.0-16.0) L Hematocrit 34.6 % (37.0-47.0) L Mean Corpuscular Volume 95 FL (80-99) Mean Corpuscular Hemoglobin 32.5 PG (27.0-31.0) H Mean Corpuscular Hemoglobin Concent 34.3 G/DL (32.0-36.0) Red Cell Distribution Width 12.9 % (11.6-14.8) Platelet Count 403 K/UL (150-450) Mean Platelet Volume 7.9 FL (6.5-10.1) Neutrophils (%) (Auto) % (45.0-75.0) Lymphocytes (%) (Auto) % (20.0-45.0) Monocytes (%) (Auto) % (1.0-10.0) Eosinophils (%) (Auto) % (0.0-3.0) Basophils (%) (Auto) % (0.0-2.0) Differential Total Cells Counted 100 Neutrophils % (Manual) 95 % (45-75) H Lymphocytes % (Manual) 3 % (20-45) L Monocytes % (Manual) 1 % (1-10) Eosinophils % (Manual) 1 % (0-3) Basophils % (Manual) 0 % (0-2) Band Neutrophils 0 % (0-8) Platelet Estimate Adequate Platelet Morphology Normal Red Blood Cell Morphology Normal Prothrombin Time 13.6 SEC (9.30-11.50) H Prothromb Time International Ratio 1.3 (0.9-1.1) H Activated Partial Thromboplast Time 33 SEC (23-33) Sodium Level 134 MMOL/L (136-145) L Potassium Level 3.7 MMOL/L (3.5-5.1) Chloride Level 102 MMOL/L (98-107) Carbon Dioxide Level 27 MMOL/L (21-32) Anion Gap 5 mmol/L (5-15) Blood Urea Nitrogen 9 mg/dL (7-18) Creatinine 0.4 MG/DL (0.55-1.30) L Estimat Glomerular Filtration Rate > 60 mL/min (>60) Glucose Level 87 MG/DL (74-106) Calcium Level 8.1 MG/DL (8.5-10.1) L Total Bilirubin 1.2 MG/DL (0.2-1.0) H Direct Bilirubin 0.8 MG/DL (0.0-0.3) H Aspartate Amino Transf (AST/SGOT) 45 U/L (15-37) H Alanine Aminotransferase (ALT/SGPT) 68 U/L (12-78) Alkaline Phosphatase 194 U/L (46-116) H Total Protein 5.7 G/DL (6.4-8.2) L Albumin 1.7 G/DL (3.4-5.0) L Globulin 4.0 g/dL Albumin/Globulin Ratio 0.4 (1.0-2.7) L Amylase Level 14 U/L (25-115) L Lipase 53 U/L (73-393) L Height (Feet): 5 Height (Inches): 3.00 Weight (Pounds): 132 Medications Current Medications Medications (Trade) Dose Ordered Sig/Zuleima Route PRN Reason Start Time Stop Time Status Last Admin Dose Admin Acetaminophen (Tylenol) 650 mg Q8H PRN ORAL Mild Pain/Temp > 100.5 01/12/19 17:30 02/11/19 17:29 01/13/19 17:27 Dextrose (Dextrose 50%) 25 ml Q30M PRN IV Hypoglycemia 01/12/19 13:45 02/11/19 13:44 Dextrose (Dextrose 50%) 50 ml Q30M PRN IV Hypoglycemia 01/12/19 13:45 02/11/19 13:44 Dextrose/ Electrolytes 1,000 ml @ 75 mls/hr [id number] IV 01/12/19 15:00 02/11/19 14:59 01/13/19 17:40 Hydromorphone HCl (Dilaudid) 1 mg Q2H PRN IVP PAIN 7-10 01/13/19 18:15 01/20/19 18:14 01/13/19 20:02 Iohexol (OMNIPAQUE-300 100ml) 100 ml NOW PRN INJ Radiology Procedure 01/12/19 08:30 01/14/19 08:30 Morphine Sulfate (Morphine Sulfate) 4 mg Q3H PRN IVP Moderate Pain (Pain Scale 4-6) 01/13/19 13:00 01/20/19 12:59 Ondansetron HCl (Zofran) 4 mg Q6H PRN IVP Nausea & Vomiting 01/12/19 13:45 02/11/19 13:44 Pantoprazole (Protonix) 40 mg DAILY IVP 01/12/19 16:45 02/11/19 16:44 01/13/19 09:10 Assessment/Plan Assessment/Plan: Note dictated Seen by Dr. Kar Bernal recently Sept, started on 2-3 drug combo last week, stage 3 -4, pet pending, doesn't know if resectable Appreciate consultation and dw Roberto Fuller MD Jan 13, 2019 20:30
[2019-01-14] VITALS: BP 95/59
[2019-01-14] MEDS: HYDROmorphone 1mg/ml Carpuject IVP PRN ×11 (00:19→22:16)
[2019-01-14 04:00] VITALS: BP 119/74
[2019-01-14 07:43] LABS: HEMATOCRIT 35.3 % (37.0-47.0); HEMOGLOBIN 11.9 G/DL (12.0-16.0); MEAN CORPUSCULAR VOLUME 95 FL (80-99); PLATELET COUNT 382 K/UL (150-450); RED BLOOD COUNT 3.72 M/UL (4.20-5.40); RED CELL DISTRIBUTION WIDTH 12.9 % (11.6-14.8); WHITE BLOOD COUNT 12.4 K/UL (4.8-10.8)
[2019-01-14 08:00] VITALS: BP 108/67
--- NOTE | 2019-01-14 08:02 | NUR ---
Nurse notes Report given to Aung BLOOD
[2019-01-14 08:09] LABS: ALANINE AMINOTRANSFERASE 65 U/L (12-78); ALBUMIN 1.6 G/DL (3.4-5.0); ALBUMIN/GLOBULIN RATIO 0.4 (1.0-2.7); ALKALINE PHOSPHATASE 172 U/L (46-116); ANION GAP 8 mmol/L (5-15); ASPARTATE AMINO TRANSFERASE 33 U/L (15-37); BILIRUBIN,TOTAL 1.2 MG/DL (0.2-1.0); BLOOD UREA NITROGEN 12 mg/dL (7-18); CALCIUM 8.5 MG/DL (8.5-10.1); CARBON DIOXIDE 27 MMOL/L (21-32); CHLORIDE 99 MMOL/L (98-107); CREATININE 0.5 MG/DL (0.55-1.30); POTASSIUM 3.5 MMOL/L (3.5-5.1); SODIUM 134 MMOL/L (136-145)
[2019-01-14 08:11] LABS: PHOSPHORUS 3.6 MG/DL (2.5-4.9)
--- NOTE | 2019-01-14 08:19 | NUR ---
NURSE NOTES: Patient is alert and oriented. Patient has biliary drain, sullivan attached. Sullivan draining. Side rails are up x2, bed is locked, in lowest position, and call light is within reach. Will continue to monitor.
[2019-01-14 08:20] LABS: BILIRUBIN,DIRECT 0.7 MG/DL (0.0-0.3)
--- NOTE | 2019-01-14 08:37 | General Progress Note ---
Assessment/Plan Problem List: (1) SOB (shortness of breath) ICD Codes: R06.02 - Shortness of breath SNOMED: 746740457 (2) Nausea & vomiting ICD Codes: R11.2 - Nausea with vomiting, unspecified SNOMED: 81931972 (3) Malnutrition ICD Codes: E46 - Unspecified protein-calorie malnutrition SNOMED: 61773371 (4) UTI (urinary tract infection) ICD Codes: N39.0 - Urinary tract infection, site not specified SNOMED: 28430780 (5) Abdominal pain ICD Codes: R10.9 - Unspecified abdominal pain SNOMED: 40427944 (6) Biliary drain displacement ICD Codes: T85.520A - Displacement of bile duct prosthesis, initial encounter SNOMED: 488105132 (7) Pancreatic cancer ICD Codes: C25.9 - Malignant neoplasm of pancreas, unspecified SNOMED: 566314539 Status: unchanged Assessment/Plan: pt diet pain control abx cbc bmp am Subjective Constitutional: Reports: weakness Allergies: Coded Allergies: No Known Allergies (Unverified , 01/12/19) All Systems: reviewed and negative except above Subjective sl nausea abd pain Objective Last 24 Hour Vital Signs Date Time Temp Pulse Resp B/P (MAP) Pulse Ox O2 Delivery O2 Flow Rate FiO2 01/14/19 08:00 97.7 91 18 108/67 (81) 95 01/14/19 04:00 97.2 86 18 119/74 (89) 97 01/14/19 00:00 97.2 86 19 95/59 (71) 98 01/13/19 21:00 Nasal Cannula 2.0 01/13/19 20:00 98.2 100 19 118/65 (82) 97 01/13/19 18:46 101.0 01/13/19 16:00 98.2 101 17 122/78 (93) 98 01/13/19 12:00 98.4 119 17 117/74 (88) 93 01/13/19 09:00 Room Air Intake and Output 01/13/19 01/14/19 19:00 07:00 Intake Total 75 ml 825 ml Output Total 170 ml Balance 75 ml 655 ml IV Total 75 ml 825 ml Other 170 ml # Voids 3 Laboratory Tests 01/14/19 05:15: White Blood Count 12.4H, Red Blood Count 3.72L, Hemoglobin 11.9L, Hematocrit 35.3L, Mean Corpuscular Volume 95, Mean Corpuscular Hemoglobin 32.0H, Mean Corpuscular Hemoglobin Concent 33.7, Red Cell Distribution Width 12.9, Platelet Count 382, Mean Platelet Volume 7.4, Neutrophils (%) (Auto) , Lymphocytes (%) ( Auto) , Monocytes (%) (Auto) , Eosinophils (%) (Auto) , Basophils (%) (Auto) , Neutrophils % (Manual) [Pending], Lymphocytes % (Manual) [Pending], Platelet Estimate [Pending], Platelet Morphology [Pending], Sodium Level 134L, Potassium Level 3.5, Chloride Level 99, Carbon Dioxide Level 27, Anion Gap 8, Blood Urea Nitrogen 12, Creatinine 0.5L, Estimat Glomerular Filtration Rate > 60, Glucose Level 92, Calcium Level 8.5, Phosphorus Level 3.6, Magnesium Level 1.8, Total Bilirubin 1.2H, Direct Bilirubin 0.7H, Aspartate Amino Transf (AST/SGOT) 33, Alanine Aminotransferase (ALT/SGPT) 65, Alkaline Phosphatase 172H, Total Protein 5.7L, Albumin 1.6L, Globulin 4.1, Albumin/Globulin Ratio 0.4L Height (Feet): 5 Height (Inches): 3.00 Weight (Pounds): 132 General Appearance: lethargic EENT: normal ENT inspection Neck: normal alignment Cardiovascular: normal peripheral pulses, normal rate, regular rhythm Respiratory/Chest: chest wall non-tender, lungs clear, normal breath sounds Abdomen: normal bowel sounds, non tender, soft Extremities: normal inspection Edema: no edema noted Arm (L), no edema noted Arm (R), no edema noted Leg (L), no edema noted Leg (R), no edema noted Pedal (L), no edema noted Pedal (R), no edema noted Generalized Neurologic: responsive, motor weakness Skin: normal pigmentation, warm/dry Elvis Luke DO Jan 14, 2019 08:37
[2019-01-14] MEDS: D5 1/2NS w/KCl 20mEq 1,000 ML IV SCH (08:47)
[2019-01-14] MEDS: Pantoprazole Inj IVP SCH (08:47)
--- NOTE | 2019-01-14 09:19 | Consultation ---
History of Present Illness General Date patient seen: Jan 14, 2019 Chief Complaint: Referring physician: Reason for Consultation: Present Illness Allergies: Coded Allergies: No Known Allergies (Unverified , 01/12/19) Medication History Scheduled Polyethylene Glycol 3350* (Miralax*), Unknown Dose ORAL DAILY, (Reported) Scheduled PRN Acetaminophen* (Tylenol Extra Strength*), 500 MG ORAL Q6H PRN for Mild Pain/ Temp > 100.5, (Reported) Hydrocodone Bit/Acetaminophen 10-325* ([place] 10-325*), 1 TAB ORAL Q6H PRN for For Pain, (Reported) Prochlorperazine (Compazine*), 10 MG ORAL Q6H PRN for Nausea & Vomiting, ( Reported) Miscellaneous Medications Famotidine/Ca Carb/Mag Hydrox (Pepcid Complete Tablet Chew), Unknown Dose PO, ( Reported) Patient History Healthcare decision maker Jarod Bird, Yolande Resuscitation status Full Code Advanced Directive on File No Physical Exam Last 24 Hour Vital Signs Date Time Temp Pulse Resp B/P (MAP) Pulse Ox O2 Delivery O2 Flow Rate FiO2 01/14/19 08:00 97.7 91 18 108/67 (81) 95 01/14/19 04:00 97.2 86 18 119/74 (89) 97 01/14/19 00:00 97.2 86 19 95/59 (71) 98 01/13/19 21:00 Nasal Cannula 2.0 01/13/19 20:00 98.2 100 19 118/65 (82) 97 01/13/19 18:46 101.0 01/13/19 16:00 98.2 101 17 122/78 (93) 98 01/13/19 12:00 98.4 119 17 117/74 (88) 93 Intake and Output 01/13/19 01/14/19 19:00 07:00 Intake Total 75 ml 825 ml Output Total 170 ml Balance 75 ml 655 ml IV Total 75 ml 825 ml Other 170 ml # Voids 3 Laboratory Tests Test 01/14/19 05:15 White Blood Count 12.4 K/UL (4.8-10.8) H Red Blood Count 3.72 M/UL (4.20-5.40) L Hemoglobin 11.9 G/DL (12.0-16.0) L Hematocrit 35.3 % (37.0-47.0) L Mean Corpuscular Volume 95 FL (80-99) Mean Corpuscular Hemoglobin 32.0 PG (27.0-31.0) H Mean Corpuscular Hemoglobin Concent 33.7 G/DL (32.0-36.0) Red Cell Distribution Width 12.9 % (11.6-14.8) Platelet Count 382 K/UL (150-450) Mean Platelet Volume 7.4 FL (6.5-10.1) Neutrophils (%) (Auto) % (45.0-75.0) Lymphocytes (%) (Auto) % (20.0-45.0) Monocytes (%) (Auto) % (1.0-10.0) Eosinophils (%) (Auto) % (0.0-3.0) Basophils (%) (Auto) % (0.0-2.0) Neutrophils % (Manual) Pending Lymphocytes % (Manual) Pending Platelet Estimate Pending Platelet Morphology Pending Sodium Level 134 MMOL/L (136-145) L Potassium Level 3.5 MMOL/L (3.5-5.1) Chloride Level 99 MMOL/L (98-107) Carbon Dioxide Level 27 MMOL/L (21-32) Anion Gap 8 mmol/L (5-15) Blood Urea Nitrogen 12 mg/dL (7-18) Creatinine 0.5 MG/DL (0.55-1.30) L Estimat Glomerular Filtration Rate > 60 mL/min (>60) Glucose Level 92 MG/DL (74-106) Calcium Level 8.5 MG/DL (8.5-10.1) Phosphorus Level 3.6 MG/DL (2.5-4.9) Magnesium Level 1.8 MG/DL (1.8-2.4) Total Bilirubin 1.2 MG/DL (0.2-1.0) H Direct Bilirubin 0.7 MG/DL (0.0-0.3) H Aspartate Amino Transf (AST/SGOT) 33 U/L (15-37) Alanine Aminotransferase (ALT/SGPT) 65 U/L (12-78) Alkaline Phosphatase 172 U/L (46-116) H Total Protein 5.7 G/DL (6.4-8.2) L Albumin 1.6 G/DL (3.4-5.0) L Globulin 4.1 g/dL Albumin/Globulin Ratio 0.4 (1.0-2.7) L Height (Feet): 5 Height (Inches): 3.00 Weight (Pounds): 132 Medications Current Medications Medications (Trade) Dose Ordered Sig/Zuleima Route PRN Reason Start Time Stop Time Status Last Admin Dose Admin Acetaminophen (Tylenol) 650 mg Q8H PRN ORAL Mild Pain/Temp > 100.5 01/12/19 17:30 02/11/19 17:29 01/13/19 17:27 Dextrose (Dextrose 50%) 25 ml Q30M PRN IV Hypoglycemia 01/12/19 13:45 02/11/19 13:44 Dextrose (Dextrose 50%) 50 ml Q30M PRN IV Hypoglycemia 01/12/19 13:45 02/11/19 13:44 Dextrose/ Electrolytes 1,000 ml @ 75 mls/hr [id number] IV 01/12/19 15:00 02/11/19 14:59 01/14/19 08:47 Hydromorphone HCl (Dilaudid) 1 mg Q2H PRN IVP PAIN 7-10 01/13/19 18:15 01/20/19 18:14 01/14/19 07:43 Morphine Sulfate (Morphine Sulfate) 4 mg Q3H PRN IVP Moderate Pain (Pain Scale 4-6) 01/13/19 13:00 01/20/19 12:59 Ondansetron HCl (Zofran) 4 mg Q6H PRN IVP Nausea & Vomiting 01/12/19 13:45 02/11/19 13:44 Pantoprazole (Protonix) 40 mg DAILY IVP 01/12/19 16:45 02/11/19 16:44 01/14/19 08:47 Assessment/Plan Assessment/Plan: (1) Intractable abdominal pain (2) Pancreatic cancer seen dictated Doug Reid Jan 14, 2019 09:19
--- NOTE | 2019-01-14 11:54 | History and Physical Report ---
DATE OF ADMISSION: 01/12/2019 DATE AND TIME SEEN: 01/13/2019 at 2 p.m. CONSULTANTS: 1. Kapil Turcios M.D. 2. Indra Rocha M.D. 3. Easton Davidson M.D. 4. Jim Gates M.D. 5. Shar Gonzales M.D. 6. Joshua Hamilton M.D. CHIEF COMPLAINT: Abdominal pain, nausea, vomiting, pancreatic cancer. BRIEF HISTORY: This is a 63-year-old female who lives at home, diagnosed with pancreatic cancer about a month ago. Started treatment about a week ago. Yesterday complained of abdominal pain, nausea, vomiting, and shortness of breath came to [facility], diagnosed with the above, admitted to medical floor for further treatment. Currently, complained moderate abdominal pain with slight short of breath. She is in bed oriented x3, slight distress secondary to pain. PAST MEDICAL HISTORY: Pancreatic cancer. PAST SURGICAL HISTORY: . ALLERGIES: Denies. SOCIAL HISTORY: Positive smoking. No alcohol. No intravenous drug abuse. FAMILY HISTORY: Noncontributory. PHYSICAL EXAMINATION: GENERAL: Slightly anxious in bed, oriented x3, slight distress secondary to pain. VITAL SIGNS: Temperature is 98 degrees, pulse 119, respirations 17, blood pressure 117/74. CARDIOVASCULAR: No murmurs. LUNGS: Poor exchange. ABDOMEN: Bowel sounds distant. Slightly tender. No guarding. No rigidity. No rebound. EXTREMITIES: No cyanosis or edema. NEUROLOGIC: The patient moves all extremities, slightly weak. LABORATORY AND DIAGNOSTIC DATA: Labs at this time show white count 12, hemoglobin and hematocrit 11/34, platelets 403. Sodium 134, creatinine 0.4. AST 45, ALT 68, alkaline phosphatase 194. Albumin 1.7. Amylase 14. Lipase 63. INR is 1.3, PTT is 33. Urinalysis show 1+ leukocyte esterase. MEDICATIONS: Include morphine, pantoprazole, hydromorphone, Zofran. ASSESSMENT: 1. Abdominal pain. 2. Nausea. 3. Vomiting. 4. UTI. 5. Pancreatic cancer. 6. Hypokalemia. 7. Shortness of breath. 8. Malnutrition. PLAN: 1. PT/Dietary eval. 2. Check labs in the morning. 3. Resume home medications. 4. Pain control. 5. Antiemetics p.r.n. 6. Antibiotics per Infectious Disease. 7. We will continue to follow this patient. 8. Dr. Katy Leger. Elvis Luke D.O. DR: GREG JOB#: [id number] CC:
[2019-01-14 12:00] VITALS: BP_SYST 105; BP_SYST 130; BP_DIAS 63; BP_DIAS 79
--- NOTE | 2019-01-14 12:57 | NUR ---
NURSE NOTES: GI DIRECTOR OF PLACEMENT rounded on patient. New diet order received.
--- NOTE | 2019-01-14 13:14 | GI Progress Note ---
Assessment/Plan Problems: (1) Pancreatic cancer ICD Codes: C25.9 - Malignant neoplasm of pancreas, unspecified SNOMED: 649603158 (2) Biliary drain displacement ICD Codes: T85.520A - Displacement of bile duct prosthesis, initial encounter SNOMED: 330834484 (3) Abdominal pain ICD Codes: R10.9 - Unspecified abdominal pain SNOMED: 51404986 Status: unchanged Status Narrative Discussed with Dr. Rocha Assessment/Plan Abdominal pelvis CT reviewed 1. Appropriately positioned percutaneous left biliary drain with mild intrahepatic biliary ductal dilatation. 2. Ill-defined pancreatic head/proximal body mass, likely corresponding to stated history of pancreatic neoplasm. Please note evaluation of size and vascular involvement of pancreatic masses is incomplete prior examinations and without multiphasic pancreatic protocol. 3. 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 SMV confluence is not visualized. 4. Color wall thickening with pericholecystic fluid; in the absence of distended gallbladder, these findings are critical for acute pancreatitis and clinical correlation is recommended. No plans for GI procedures at this time. Symptomatic treatment surgical recommendations, no interventions at this time Follow-up pain management recommendations ppi Trend LFTs advance diet as tolerated We will follow-up The patient was seen and examined at bedside and all new and available data was reviewed in the patients chart. I agree with the above findings, impression and plan. (Patient seen earlier today. Signature stamp does not reflect patient encounter time.). - Indra Rocha MD Subjective Subjective Patient still complains of abdominal pain, but states her pain is improved with increased dosage of medication Objective Last 24 Hour Vital Signs Date Time Temp Pulse Resp B/P (MAP) Pulse Ox O2 Delivery O2 Flow Rate FiO2 01/14/19 12:00 97.9 88 17 105/63 (77) 95 01/14/19 08:00 Nasal Cannula 2.0 01/14/19 08:00 97.7 91 18 108/67 (81) 95 01/14/19 04:00 97.2 86 18 119/74 (89) 97 01/14/19 00:00 97.2 86 19 95/59 (71) 98 01/13/19 21:00 Nasal Cannula 2.0 01/13/19 20:00 98.2 100 19 118/65 (82) 97 01/13/19 18:46 101.0 01/13/19 16:00 98.2 101 17 122/78 (93) 98 Intake and Output 01/13/19 01/14/19 19:00 07:00 Intake Total 75 ml 825 ml Output Total 170 ml Balance 75 ml 655 ml IV Total 75 ml 825 ml Other 170 ml # Voids 3 Laboratory Tests Test 01/14/19 05:15 White Blood Count 12.4 K/UL (4.8-10.8) H Red Blood Count 3.72 M/UL (4.20-5.40) L Hemoglobin 11.9 G/DL (12.0-16.0) L Hematocrit 35.3 % (37.0-47.0) L Mean Corpuscular Volume 95 FL (80-99) Mean Corpuscular Hemoglobin 32.0 PG (27.0-31.0) H Mean Corpuscular Hemoglobin Concent 33.7 G/DL (32.0-36.0) Red Cell Distribution Width 12.9 % (11.6-14.8) Platelet Count 382 K/UL (150-450) Mean Platelet Volume 7.4 FL (6.5-10.1) Neutrophils (%) (Auto) % (45.0-75.0) Lymphocytes (%) (Auto) % (20.0-45.0) Monocytes (%) (Auto) % (1.0-10.0) Eosinophils (%) (Auto) % (0.0-3.0) Basophils (%) (Auto) % (0.0-2.0) Differential Total Cells Counted 100 Neutrophils % (Manual) 91 % (45-75) H Lymphocytes % (Manual) 3 % (20-45) L Monocytes % (Manual) 1 % (1-10) Eosinophils % (Manual) 1 % (0-3) Basophils % (Manual) 0 % (0-2) Band Neutrophils 4 % (0-8) Platelet Estimate Adequate Platelet Morphology Normal Red Blood Cell Morphology Normal Sodium Level 134 MMOL/L (136-145) L Potassium Level 3.5 MMOL/L (3.5-5.1) Chloride Level 99 MMOL/L (98-107) Carbon Dioxide Level 27 MMOL/L (21-32) Anion Gap 8 mmol/L (5-15) Blood Urea Nitrogen 12 mg/dL (7-18) Creatinine 0.5 MG/DL (0.55-1.30) L Estimat Glomerular Filtration Rate > 60 mL/min (>60) Glucose Level 92 MG/DL (74-106) Calcium Level 8.5 MG/DL (8.5-10.1) Phosphorus Level 3.6 MG/DL (2.5-4.9) Magnesium Level 1.8 MG/DL (1.8-2.4) Total Bilirubin 1.2 MG/DL (0.2-1.0) H Direct Bilirubin 0.7 MG/DL (0.0-0.3) H Aspartate Amino Transf (AST/SGOT) 33 U/L (15-37) Alanine Aminotransferase (ALT/SGPT) 65 U/L (12-78) Alkaline Phosphatase 172 U/L (46-116) H Total Protein 5.7 G/DL (6.4-8.2) L Albumin 1.6 G/DL (3.4-5.0) L Globulin 4.1 g/dL Albumin/Globulin Ratio 0.4 (1.0-2.7) L Height (Feet): 5 Height (Inches): 3.00 Weight (Pounds): 132 General Appearance: WD/WN, no apparent distress, alert Cardiovascular: normal rate Respiratory/Chest: normal breath sounds, no respiratory distress Abdominal Exam: normal bowel sounds, non tender, soft Extremities: normal range of motion, non-tender Jeff Rueda NP Jan 14, 2019 13:14
--- NOTE | 2019-01-14 14:46 | NUR ---
*-* INSURANCE *-* ALL AVAILABLE CLINICALS HAVE BEEN FAXED TO: REF#[id number] - FOR TRACKING PURPOSES THIS IS SHARED RISK NO CM ASSIGNED PH#[phone] FAX#[phone] REVIEWS/CLINICALS & [facility] TRACKING#[id number] CM: TAMMY PH#[phone] EXT [phone] FAX#[phone] REVIEWS/CLINICALS
--- NOTE | 2019-01-14 14:52 | Hematology/Onc Progress Note ---
Assessment/Plan Assessment/Plan Assessment/Plan # Pancreatic cancer, non-resectable, based on patient's info. Had a Abdominal pelvis CT reviewed 1. Appropriately positioned percutaneous left biliary drain with mild intrahepatic biliary ductal dilatation. 2. Ill-defined pancreatic head/proximal body mass, likely corresponding to stated history of pancreatic neoplasm. Please note evaluation of size and vascular involvement of pancreatic masses is incomplete prior examinations and without multiphasic pancreatic protocol. 3. 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 She has already started rx. --> gi recs noted No plans for GI procedures at this time. --> surgical recommendations, no interventions at this time --> likely to continue chemo and XRT as needed with Dr. Elias Bernal --> CA 19.9>500, in general with this presentation, poor prognosis # Anemia of myelosuppressive chemo --> okay to continue on chemo at this time --> epo as stimulating factor if drops --> dw patient risks of dvt/VTE # Transaminitis --> Trend LFTs --> per gi --> advance diet as tolerated Appreciate consultation and dw RN Subjective HEENT: Denies: no symptoms, eye pain, blurred vision, tearing, double vision, ear pain, ear discharge, nose pain, nose congestion, throat pain, throat swelling, mouth pain, mouth swelling, other Cardiovascular: Denies: no symptoms, chest pain, edema, irregular heart rate, lightheadedness, palpitations, syncope, other Respiratory: Denies: no symptoms, cough, shortness of breath, SOB with excertion, SOB at rest, sputum, wheezing, other Gastrointestinal/Abdominal: Denies: no symptoms, abdomen distended, abdominal pain, black stools, tarry stools, blood in stool, constipated, diarrhea, difficulty swallowing, nausea, poor appetite, poor fluid intake, rectal bleeding , vomiting, other Genitourinary: Denies: no symptoms, burning, discharge, frequency, flank pain, hematuria, incontinence, pain, urgency, other Neurologic/Psychiatric: Denies: no symptoms, anxiety, depressed, emotional problems, headache, numbness, paresthesia, pre-existing deficit, seizure, tingling, tremors, weakness, other Endocrine: Denies: no symptoms, excessive sweating, flushing, intolerance to cold, intolerance to heat, increased hunger, increased thirst, increased urine, unexplained weight gain, unexplained weight loss, other Allergies: Coded Allergies: No Known Allergies (Unverified , 01/12/19) Subjective 01/13: no events to report, no f/c, no night sweats Objective Objective Current Medications Medications (Trade) Dose Ordered Sig/Zuleima Route PRN Reason Start Time Stop Time Status Last Admin Dose Admin Acetaminophen (Tylenol) 650 mg Q8H PRN ORAL Mild Pain/Temp > 100.5 01/12/19 17:30 02/11/19 17:29 01/13/19 17:27 Dextrose (Dextrose 50%) 25 ml Q30M PRN IV Hypoglycemia 01/12/19 13:45 02/11/19 13:44 Dextrose (Dextrose 50%) 50 ml Q30M PRN IV Hypoglycemia 01/12/19 13:45 02/11/19 13:44 Dextrose/ Electrolytes 1,000 ml @ 75 mls/hr [id number] IV 01/12/19 15:00 02/11/19 14:59 01/14/19 08:47 Fentanyl (Duragesic) 1 patch Q72H TDERMAL 01/14/19 09:00 01/21/19 08:59 UNV Hydromorphone HCl (Dilaudid) 1 mg Q2H PRN IVP PAIN 7-10 01/13/19 18:15 01/20/19 18:14 01/14/19 14:08 Miscellaneous Medication (fentaNYL Destruction) 1 ea Q72H MISC 01/14/19 09:00 02/13/19 08:59 UNV Naloxone HCl (Narcan) 0.1 mg PRN IV Sedation scale 3 or 4 01/14/19 09:00 UNV Ondansetron HCl (Zofran) 4 mg Q6H PRN IVP Nausea & Vomiting 01/12/19 13:45 02/11/19 13:44 Pantoprazole (Protonix) 40 mg DAILY IVP 01/12/19 16:45 02/11/19 16:44 01/14/19 08:47 Last 24 Hour Vital Signs Date Time Temp Pulse Resp B/P (MAP) Pulse Ox O2 Delivery O2 Flow Rate FiO2 01/14/19 12:00 97.9 88 17 105/63 (77) 95 01/14/19 08:00 Nasal Cannula 2.0 01/14/19 08:00 97.7 91 18 108/67 (81) 95 01/14/19 04:00 97.2 86 18 119/74 (89) 97 01/14/19 00:00 97.2 86 19 95/59 (71) 98 01/13/19 21:00 Nasal Cannula 2.0 01/13/19 20:00 98.2 100 19 118/65 (82) 97 01/13/19 18:46 101.0 01/13/19 16:00 98.2 101 17 122/78 (93) 98 01/13/19 12:00 98.4 119 17 117/74 (88) 93 01/13/19 09:00 Room Air 01/13/19 08:00 98.2 112 19 126/79 (95) 98 01/13/19 04:00 99.2 115 17 119/78 (92) 92 01/13/19 00:00 99.6 115 18 122/80 (94) 92 01/12/19 21:00 Room Air 01/12/19 20:00 99.6 118 17 110/75 (87) 92 01/12/19 17:42 102.0 01/12/19 16:45 102.0 105 20 122/75 (91) 95 01/12/19 15:47 Room Air 01/12/19 14:57 98.0 107 18 104/75 (85) 94 Intake and Output 01/13/19 01/14/19 19:00 07:00 Intake Total 75 ml 825 ml Output Total 170 ml Balance 75 ml 655 ml IV Total 75 ml 825 ml Other 170 ml # Voids 3 Labs Test 01/12/19 08:50 01/12/19 10:49 01/13/19 05:30 01/14/19 05:15 White Blood Count 9.8 K/UL (4.8-10.8) 12.7 K/UL (4.8-10.8) 12.4 K/UL (4.8-10.8) Red Blood Count 4.16 M/UL (4.20-5.40) 3.66 M/UL (4.20-5.40) 3.72 M/UL (4.20-5.40) Hemoglobin 13.1 G/DL (12.0-16.0) 11.9 G/DL (12.0-16.0) 11.9 G/DL (12.0-16.0) Hematocrit 39.2 % (37.0-47.0) 34.6 % (37.0-47.0) 35.3 % (37.0-47.0) Mean Corpuscular Volume 94 FL (80-99) 95 FL (80-99) 95 FL (80-99) Mean Corpuscular Hemoglobin 31.5 PG (27.0-31.0) 32.5 PG (27.0-31.0) 32.0 PG (27.0-31.0) Mean Corpuscular Hemoglobin Concent 33.3 G/DL (32.0-36.0) 34.3 G/DL (32.0-36.0) 33.7 G/DL (32.0-36.0) Red Cell Distribution Width 13.1 % (11.6-14.8) 12.9 % (11.6-14.8) 12.9 % (11.6-14.8) Platelet Count 503 K/UL (150-450) 403 K/UL (150-450) 382 K/UL (150-450) Mean Platelet Volume 7.6 FL (6.5-10.1) 7.9 FL (6.5-10.1) 7.4 FL (6.5-10.1) Neutrophils (%) (Auto) % (45.0-75.0) % (45.0-75.0) % (45.0-75.0) Lymphocytes (%) (Auto) % (20.0-45.0) % (20.0-45.0) % (20.0-45.0) Monocytes (%) (Auto) % (1.0-10.0) % (1.0-10.0) % (1.0-10.0) Eosinophils (%) (Auto) % (0.0-3.0) % (0.0-3.0) % (0.0-3.0) Basophils (%) (Auto) % (0.0-2.0) % (0.0-2.0) % (0.0-2.0) Differential Total Cells Counted 100 100 100 Neutrophils % (Manual) 94 % (45-75) 95 % (45-75) 91 % (45-75) Lymphocytes % (Manual) 4 % (20-45) 3 % (20-45) 3 % (20-45) Monocytes % (Manual) 2 % (1-10) 1 % (1-10) 1 % (1-10) Eosinophils % (Manual) 0 % (0-3) 1 % (0-3) 1 % (0-3) Basophils % (Manual) 0 % (0-2) 0 % (0-2) 0 % (0-2) Band Neutrophils 0 % (0-8) 0 % (0-8) 4 % (0-8) Platelet Estimate Increased Adequate Adequate Platelet Morphology Normal Normal Normal Prothrombin Time 10.9 SEC (9.30-11.50) 13.6 SEC (9.30-11.50) Prothromb Time International Ratio 1.0 (0.9-1.1) 1.3 (0.9-1.1) Activated Partial Thromboplast Time 25 SEC (23-33) 33 SEC (23-33) Sodium Level 136 MMOL/L (136-145) 134 MMOL/L (136-145) 134 MMOL/L (136-145) Potassium Level 2.9 MMOL/L (3.5-5.1) 3.7 MMOL/L (3.5-5.1) 3.5 MMOL/L (3.5-5.1) Chloride Level 100 MMOL/L (98-107) 102 MMOL/L (98-107) 99 MMOL/L (98-107) Carbon Dioxide Level 25 MMOL/L (21-32) 27 MMOL/L (21-32) 27 MMOL/L (21-32) Anion Gap 11 mmol/L (5-15) 5 mmol/L (5-15) 8 mmol/L (5-15) Blood Urea Nitrogen 15 mg/dL (7-18) 9 mg/dL (7-18) 12 mg/dL (7-18) Creatinine 0.6 MG/DL (0.55-1.30) 0.4 MG/DL (0.55-1.30) 0.5 MG/DL (0.55-1.30) Estimat Glomerular Filtration Rate > 60 mL/min (>60) > 60 mL/min (>60) > 60 mL/min (>60) Glucose Level 114 MG/DL (74-106) 87 MG/DL (74-106) 92 MG/DL (74-106) Calcium Level 8.7 MG/DL (8.5-10.1) 8.1 MG/DL (8.5-10.1) 8.5 MG/DL (8.5-10.1) Total Bilirubin 1.5 MG/DL (0.2-1.0) 1.2 MG/DL (0.2-1.0) 1.2 MG/DL (0.2-1.0) Direct Bilirubin 0.8 MG/DL (0.0-0.3) 0.8 MG/DL (0.0-0.3) 0.7 MG/DL (0.0-0.3) Aspartate Amino Transf (AST/SGOT) 88 U/L (15-37) 45 U/L (15-37) 33 U/L (15-37) Alanine Aminotransferase (ALT/SGPT) 90 U/L (12-78) 68 U/L (12-78) 65 U/L (12-78) Alkaline Phosphatase 306 U/L (46-116) 194 U/L (46-116) 172 U/L (46-116) Total Protein 6.7 G/DL (6.4-8.2) 5.7 G/DL (6.4-8.2) 5.7 G/DL (6.4-8.2) Albumin 2.3 G/DL (3.4-5.0) 1.7 G/DL (3.4-5.0) 1.6 G/DL (3.4-5.0) Globulin 4.4 g/dL 4.0 g/dL 4.1 g/dL Albumin/Globulin Ratio 0.5 (1.0-2.7) 0.4 (1.0-2.7) 0.4 (1.0-2.7) Lipase 286 U/L (73-393) 53 U/L (73-393) CA 19-9 Antigen 688 U/mL (0-35) Urine Color Brown Urine Appearance Clear Urine pH 5 (4.5-8.0) Urine Specific [place] 1.010 (1.005-1.035) Urine Protein 2+ (NEGATIVE) Urine Glucose (UA) Negative (NEGATIVE) Urine Ketones Negative (NEGATIVE) Urine Blood Negative (NEGATIVE) Urine Nitrite Negative (NEGATIVE) Urine Bilirubin Negative (NEGATIVE) Urine Urobilinogen Normal MG/DL (0.0-1.0) Urine Leukocyte Esterase 1+ (NEGATIVE) Urine RBC 0-2 /HPF (0 - 2) Urine WBC 2-4 /HPF (0 - 2) Urine Squamous Epithelial Cells Few /LPF (NONE/OCC) Urine Bacteria Few /HPF (NONE) Urine Mucus Few /LPF (NONE/OCC) Red Blood Cell Morphology Normal Normal Amylase Level 14 U/L (25-115) Phosphorus Level 3.6 MG/DL (2.5-4.9) Magnesium Level 1.8 MG/DL (1.8-2.4) Height (Feet): 5 Height (Inches): 3.00 Weight (Pounds): 132 General Appearance: alert Neck: non-tender Cardiovascular: normal rate Respiratory/Chest: lungs clear Abdomen: non tender Skin: warm/dry Roberto Davidson MD Jan 14, 2019 14:52
--- NOTE | 2019-01-14 14:56 | NUR ---
P.T Note: late entry 1030 P.T evaluation completed and tx initiated. Please refer to P.T evaluation for current functional status. Pt is alert, O x 4, pleasant and cooperative. Pt reports c/o weakness and severe abdominal pain 8/10 aggravated by movement initiation and certain position. Pt has taken pain meds prior to P.T evaluation. Pt required extended amount of time and MAX A X 1 to complete rolling/turning and supine to/from sitting position. Pt able to perform sit to/from stand with MOD A X 1 and was able to take 4 tiny steps using the FWW with MIN A X 1. Pt would benefit from skilled P.T services to improve her strength and endurance to increase mobility independence and activity tolerance for return to PLOF during stay. Recommend with family assist and home P.T or SNF for short term rehab at [place].
[2019-01-14 16:00] VITALS: BP 129/81
--- NOTE | 2019-01-14 16:09 | Surgery Progress Note ---
Surgery Progress Note Subjective Additional Comments long discussion with patient and daughter at bedside Daughter was able to inform me with a lot of history. Seems patient unresectable initially and attempted biliary drain placed endoscopically but unsuccessful. A external biliary drain was placed by radiology. Would patient was getting her Port-A-Cath placed a another radiologist felt he could place a internal/external biliary drain and he was able to successfully place a internal /external biliary drain. Had the trade Since. Fell off and she has been without it to drainage recently. In evaluating the trade she has some bilious output from the drain and on imaging drain looks to be appropriately placed. Labs reviewed stable. Will plan on cap the drain as it is internal/external it should drain internally Objective Last 24 Hour Vital Signs Date Time Temp Pulse Resp B/P (MAP) Pulse Ox O2 Delivery O2 Flow Rate FiO2 01/14/19 12:00 97.9 88 17 105/63 (77) 95 01/14/19 08:00 Nasal Cannula 2.0 01/14/19 08:00 97.7 91 18 108/67 (81) 95 01/14/19 04:00 97.2 86 18 119/74 (89) 97 01/14/19 00:00 97.2 86 19 95/59 (71) 98 01/13/19 21:00 Nasal Cannula 2.0 01/13/19 20:00 98.2 100 19 118/65 (82) 97 01/13/19 18:46 101.0 I&O Intake and Output 01/13/19 01/14/19 19:00 07:00 Intake Total 75 ml 825 ml Output Total 170 ml Balance 75 ml 655 ml IV Total 75 ml 825 ml Other 170 ml # Voids 3 Dressing: dry Wound: clean Drains: other Cardiovascular: RSR Respiratory: clear Abdomen: soft, flat, non-tender, present bowel sounds Extremities: no edema, no tenderness, no cyanosis Laboratory Tests Test 01/14/19 05:15 White Blood Count 12.4 K/UL (4.8-10.8) H Red Blood Count 3.72 M/UL (4.20-5.40) L Hemoglobin 11.9 G/DL (12.0-16.0) L Hematocrit 35.3 % (37.0-47.0) L Mean Corpuscular Volume 95 FL (80-99) Mean Corpuscular Hemoglobin 32.0 PG (27.0-31.0) H Mean Corpuscular Hemoglobin Concent 33.7 G/DL (32.0-36.0) Red Cell Distribution Width 12.9 % (11.6-14.8) Platelet Count 382 K/UL (150-450) Mean Platelet Volume 7.4 FL (6.5-10.1) Neutrophils (%) (Auto) % (45.0-75.0) Lymphocytes (%) (Auto) % (20.0-45.0) Monocytes (%) (Auto) % (1.0-10.0) Eosinophils (%) (Auto) % (0.0-3.0) Basophils (%) (Auto) % (0.0-2.0) Differential Total Cells Counted 100 Neutrophils % (Manual) 91 % (45-75) H Lymphocytes % (Manual) 3 % (20-45) L Monocytes % (Manual) 1 % (1-10) Eosinophils % (Manual) 1 % (0-3) Basophils % (Manual) 0 % (0-2) Band Neutrophils 4 % (0-8) Platelet Estimate Adequate Platelet Morphology Normal Red Blood Cell Morphology Normal Sodium Level 134 MMOL/L (136-145) L Potassium Level 3.5 MMOL/L (3.5-5.1) Chloride Level 99 MMOL/L (98-107) Carbon Dioxide Level 27 MMOL/L (21-32) Anion Gap 8 mmol/L (5-15) Blood Urea Nitrogen 12 mg/dL (7-18) Creatinine 0.5 MG/DL (0.55-1.30) L Estimat Glomerular Filtration Rate > 60 mL/min (>60) Glucose Level 92 MG/DL (74-106) Calcium Level 8.5 MG/DL (8.5-10.1) Phosphorus Level 3.6 MG/DL (2.5-4.9) Magnesium Level 1.8 MG/DL (1.8-2.4) Total Bilirubin 1.2 MG/DL (0.2-1.0) H Direct Bilirubin 0.7 MG/DL (0.0-0.3) H Aspartate Amino Transf (AST/SGOT) 33 U/L (15-37) Alanine Aminotransferase (ALT/SGPT) 65 U/L (12-78) Alkaline Phosphatase 172 U/L (46-116) H Total Protein 5.7 G/DL (6.4-8.2) L Albumin 1.6 G/DL (3.4-5.0) L Globulin 4.1 g/dL Albumin/Globulin Ratio 0.4 (1.0-2.7) L Plan Problems: (1) Abdominal pain Assessment & Plan: 63-year-old female patient with history of recently diagnosed pancreatic cancer in November 2018 presented to the emergency room at [facility] [place] with complaint of abdominal pain for approximately 1 hour. Patient is status post a biliary drain placement at [facility] approximately 1 week ago. She reported that she had a first treatment of chemotherapy this past Thursday. The patient denied any nausea vomiting, denies any constipation or diarrhea. She states her pain medication was unable to relieve her pain. no fever or chills. labs as below. C Tnoted. surgery called to assist with care and management. tube checked okay for diet leave tube in place with cap stable otherwise from surgical standpoint no acute surgical intervention planned iv fluids trend labs will monitor and follow with exam thank you (2) Biliary drain displacement Assessment & Plan: Daughter was able to inform me with a lot of history. Seems patient unresectable initially and attempted biliary drain placed endoscopically but unsuccessful. A external biliary drain was placed by radiology. Would patient was getting her Port-A-Cath placed a another radiologist felt he could place a internal/external biliary drain and he was able to successfully place a internal/external biliary drain. Had the trade Since. Fell off and she has been without it to drainage recently. In evaluating the trade she has some bilious output from the drain and on imaging drain looks to be appropriately placed. Labs reviewed stable. Will plan on cap the drain as it is internal/external it should drain internally IMPRESSION: 1. Appropriately positioned percutaneous left biliary drain with mild intrahepatic biliary ductal dilatation. 2. Ill-defined pancreatic head/proximal body mass, likely corresponding to stated history of pancreatic neoplasm. Please note evaluation of size and vascular involvement of pancreatic masses is incomplete prior examinations and without multiphasic pancreatic protocol. 3. 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 SMV confluence is not visualized. 4. Color wall thickening with pericholecystic fluid; in the absence of distended gallbladder, these findings are critical for acute pancreatitis and clinical correlation is recommended. (3) Pancreatic cancer Assessment & Plan: Pancreatic cancer, non-resectable, based on patient's info. Had a Abdominal pelvis CT reviewed 1. Appropriately positioned percutaneous left biliary drain with mild intrahepatic biliary ductal dilatation. 2. Ill- defined pancreatic head/proximal body mass, likely corresponding to stated history of pancreatic neoplasm. Please note evaluation of size and vascular involvement of pancreatic masses is incomplete prior examinations and without multiphasic pancreatic protocol. 3. 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 She has already started rx Jim Gates Jan 14, 2019 16:09
--- NOTE | 2019-01-14 16:47 | Consultation ---
History of Present Illness General Date patient seen: Jan 14, 2019 Chief Complaint: Abdominal Pain Referring physician: Reason for Consultation: Present Illness HPI 63 y/o F with hx of tobacco abuse, recently diagnosed pancreatic CA 11/2018 and s /p biliary drain 1 week ago at [facility] presented to eD on 01/12 with 1hr onset of abd pain. She received her first treatment of chemotherapy 4 days ago (01/10/19). Denied n/v, constipation, diarrhea, f/c. Kalia cath placed 1 week ago Allergies: Coded Allergies: No Known Allergies (Unverified , 01/12/19) Medication History Scheduled Polyethylene Glycol 3350* (Miralax*), Unknown Dose ORAL DAILY, (Reported) Scheduled PRN Acetaminophen* (Tylenol Extra Strength*), 500 MG ORAL Q6H PRN for Mild Pain/ Temp > 100.5, (Reported) Hydrocodone Bit/Acetaminophen 10-325* ([place] 10-325*), 1 TAB ORAL Q6H PRN for For Pain, (Reported) Prochlorperazine (Compazine*), 10 MG ORAL Q6H PRN for Nausea & Vomiting, ( Reported) Miscellaneous Medications Famotidine/Ca Carb/Mag Hydrox (Pepcid Complete Tablet Chew), Unknown Dose PO, ( Reported) Patient History Healthcare decision maker Jarod Bird, Daughter Resuscitation status Full Code Advanced Directive on File No Patient History Narrative Pmhx: as above Shx: Positive smoking. No alcohol. No intravenous drug abuse. Fhx: non contributory Physical Exam Physical Exam Narrative General appearance: alert, cooperative, no distress, appears stated age Head: Normocephalic, without obvious abnormality, atraumatic Eyes: conjunctivae/corneas clear. PERRL, EOM's intact. Fundi benign Throat: Lips, mucosa, and tongue normal. Teeth and gums normal Neck: supple, symmetrical, trachea midline, no adenopathy, thyroid: not enlarged, symmetric, no tenderness/mass/nodules, no carotid bruit and no JVD Lungs: clear to auscultation bilaterally Heart: regular rate and rhythm, S1, S2 normal, no murmur, click, rub or gallop Abdomen: soft, minimal tender. Bowel sounds normal. No masses, no organomegaly Extremities: extremities normal, atraumatic, no cyanosis or edema +drain cap Pulses: 2+ and symmetric Skin: Skin color, texture, turgor normal. No rashes or lesions Neurologic: Grossly normal Last 24 Hour Vital Signs Date Time Temp Pulse Resp B/P (MAP) Pulse Ox O2 Delivery O2 Flow Rate FiO2 01/14/19 12:00 97.9 88 17 105/63 (77) 95 01/14/19 08:00 Nasal Cannula 2.0 01/14/19 08:00 97.7 91 18 108/67 (81) 95 01/14/19 04:00 97.2 86 18 119/74 (89) 97 01/14/19 00:00 97.2 86 19 95/59 (71) 98 01/13/19 21:00 Nasal Cannula 2.0 01/13/19 20:00 98.2 100 19 118/65 (82) 97 01/13/19 18:46 101.0 Intake and Output 01/13/19 01/14/19 19:00 07:00 Intake Total 75 ml 825 ml Output Total 170 ml Balance 75 ml 655 ml IV Total 75 ml 825 ml Other 170 ml # Voids 3 Laboratory Tests Test 01/14/19 05:15 White Blood Count 12.4 K/UL (4.8-10.8) H Red Blood Count 3.72 M/UL (4.20-5.40) L Hemoglobin 11.9 G/DL (12.0-16.0) L Hematocrit 35.3 % (37.0-47.0) L Mean Corpuscular Volume 95 FL (80-99) Mean Corpuscular Hemoglobin 32.0 PG (27.0-31.0) H Mean Corpuscular Hemoglobin Concent 33.7 G/DL (32.0-36.0) Red Cell Distribution Width 12.9 % (11.6-14.8) Platelet Count 382 K/UL (150-450) Mean Platelet Volume 7.4 FL (6.5-10.1) Neutrophils (%) (Auto) % (45.0-75.0) Lymphocytes (%) (Auto) % (20.0-45.0) Monocytes (%) (Auto) % (1.0-10.0) Eosinophils (%) (Auto) % (0.0-3.0) Basophils (%) (Auto) % (0.0-2.0) Differential Total Cells Counted 100 Neutrophils % (Manual) 91 % (45-75) H Lymphocytes % (Manual) 3 % (20-45) L Monocytes % (Manual) 1 % (1-10) Eosinophils % (Manual) 1 % (0-3) Basophils % (Manual) 0 % (0-2) Band Neutrophils 4 % (0-8) Platelet Estimate Adequate Platelet Morphology Normal Red Blood Cell Morphology Normal Sodium Level 134 MMOL/L (136-145) L Potassium Level 3.5 MMOL/L (3.5-5.1) Chloride Level 99 MMOL/L (98-107) Carbon Dioxide Level 27 MMOL/L (21-32) Anion Gap 8 mmol/L (5-15) Blood Urea Nitrogen 12 mg/dL (7-18) Creatinine 0.5 MG/DL (0.55-1.30) L Estimat Glomerular Filtration Rate > 60 mL/min (>60) Glucose Level 92 MG/DL (74-106) Calcium Level 8.5 MG/DL (8.5-10.1) Phosphorus Level 3.6 MG/DL (2.5-4.9) Magnesium Level 1.8 MG/DL (1.8-2.4) Total Bilirubin 1.2 MG/DL (0.2-1.0) H Direct Bilirubin 0.7 MG/DL (0.0-0.3) H Aspartate Amino Transf (AST/SGOT) 33 U/L (15-37) Alanine Aminotransferase (ALT/SGPT) 65 U/L (12-78) Alkaline Phosphatase 172 U/L (46-116) H Total Protein 5.7 G/DL (6.4-8.2) L Albumin 1.6 G/DL (3.4-5.0) L Globulin 4.1 g/dL Albumin/Globulin Ratio 0.4 (1.0-2.7) L Height (Feet): 5 Height (Inches): 3.00 Weight (Pounds): 132 Medications Current Medications Medications (Trade) Dose Ordered Sig/Zuleima Route PRN Reason Start Time Stop Time Status Last Admin Dose Admin Acetaminophen (Tylenol) 650 mg Q8H PRN ORAL Mild Pain/Temp > 100.5 01/12/19 17:30 02/11/19 17:29 01/13/19 17:27 Dextrose (Dextrose 50%) 25 ml Q30M PRN IV Hypoglycemia 01/12/19 13:45 02/11/19 13:44 Dextrose (Dextrose 50%) 50 ml Q30M PRN IV Hypoglycemia 01/12/19 13:45 02/11/19 13:44 Dextrose/ Electrolytes 1,000 ml @ 75 mls/hr [id number] IV 01/12/19 15:00 02/11/19 14:59 01/14/19 08:47 Fentanyl (Duragesic) 1 patch Q72H TDERMAL 01/14/19 09:00 01/21/19 08:59 UNV Hydromorphone HCl (Dilaudid) 1 mg Q2H PRN IVP PAIN 7-10 01/13/19 18:15 01/20/19 18:14 01/14/19 16:07 Miscellaneous Medication (fentaNYL Destruction) 1 ea Q72H MISC 01/14/19 09:00 02/13/19 08:59 UNV Naloxone HCl (Narcan) 0.1 mg PRN IV Sedation scale 3 or 4 01/14/19 09:00 UNV Ondansetron HCl (Zofran) 4 mg Q6H PRN IVP Nausea & Vomiting 01/12/19 13:45 02/11/19 13:44 Pantoprazole (Protonix) 40 mg DAILY IVP 01/12/19 16:45 02/11/19 16:44 01/14/19 08:47 Assessment/Plan Assessment/Plan: Abx: None Assessment: Sepsis- r/o bacteremia Abdominal pain -CT abd/p: Appropriately positioned percutaneous left biliary drain with mild intrahepatic biliary ductal dilatation. Ill-defined pancreatic head/ proximal body mass, likely corresponding to stated history of pancreatic neoplasm. Please note evaluation of size and vascular involvement of pancreatic masses is incomplete prior examinations and without multiphasic pancreatic protocol. 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 SMV confluence is not visualized. Gallbladder wall thickening with pericholecystic fluid; in the absence of distended gallbladder, these findings are critical for acute pancreatitis and clinical correlation is recommended. Fever Leukocytosis recently diagnosed pancreatic CA 11/2018 - s/p biliary drain 1 week [facility] at [facility] - 1st chemotherapy treatment 01/10/19 tobacco abuse Plan: -Start empiric Zosyn and IV Vancomycin -f/u cx -Monitor CBC/CMP, temperatures -Bcx x2 -Abd US, CXR -aspiration precautions Thank you for this consultation. Will continue to follow along with you. Discussed with Yeni Delacruz M.D. Jan 14, 2019 16:47
[2019-01-14] MEDS: Piperacillin/Tazobactam 3.375 GM in NS 110 ML IVPB SCH (18:02)
--- NOTE | 2019-01-14 18:45 | Consultation ---
DATE OF CONSULTATION: 01/14/2019 PAIN MANAGEMENT CONSULTATION CONSULTING PHYSICIAN: Shar Gonzales M.D. REFERRING PHYSICIAN: Elvis Luke D.O. PHYSICIAN COMPUTER ANIMATOR: Carlotta Garza CHIEF COMPLAINT: Abdominal pain. HISTORY OF PRESENT ILLNESS: This is a 63-year-old female, who is being seen on the Med/Surg floor of [facility] for initial pain management consultation. The patient has been admitted under the care of Dr. Luke with complaints of severe abdominal pain. She has been having abdominal pain for the past 4 months. It is a constant acute pain that she rates a 10/10, reduced to 6/10 on the current medication of Dilaudid. Described the pain as sharp pain, increased with movement and breathing and reduced with medication. States that she was diagnosed with stage IV pancreatic cancer about a month ago, had a biliary drain placed a week ago in [facility] and started chemotherapy, but was having severe pain and not tolerated on the home medication of [place]. Due to this, she was admitted to the hospital, was started on morphine 8 mg IV every 3 hours with no pain relief. This was changed to Dilaudid 1 mg IV every 2 hours as needed, which she says has been more effective in reducing her pain and has used 6 doses in the last 24 hours. We were consulted so that the patient would have adequate pain control while here in the hospital. PAST MEDICAL HISTORY: Denies. PAST SURGICAL HISTORY: . SOCIAL HISTORY: Smoker of tobacco. Denies alcohol and IV drug abuse. ALLERGIES: No known drug allergies. MEDICATIONS: States she takes [place] and Tylenol as an outpatient. REVIEW OF SYSTEMS: Denies rash, fever, chills, sweating, dizziness, drowsiness, blurred vision, sore throat, change in weight. No shortness of breath or chest pain. No bowel or bladder incontinence. She is complaining of abdominal pain. PHYSICAL EXAMINATION: GENERAL: Alert, awake, and oriented. VITAL SIGNS: Blood pressure 135/78, heart rate is 101, oxygen saturation 98%, respirations 17, temperature 98.2 degrees Fahrenheit. HEENT: PERRLA. NECK: Range of motion is full in all directions. No tenderness to paracervical muscles. No adenopathy. LUNGS: Clear bilaterally. HEART: S1, S2 regular. ABDOMEN: Tenderness to palpation with biliary stent noted. BACK: Range of motion is decreased in flexion, extension. EXTREMITIES: Upper and lower extremity range of motion is full in all directions. No cyanosis. No clubbing. No edema. Sensory is intact. Reflexes are not obtainable. No adenopathy. ASSESSMENT AND PLAN: This is a 63-year-old female with intractable abdominal pain, pancreatic cancer. The patient will be continued on Dilaudid and fentanyl patch 25 mcg every 72 hours and parameters will be set to hold opioids for oversedation or lethargy or systolic blood pressure below 90 or diastolic blood pressure below 60, respiratory rate below 12, oxygen saturation below 92%. The patient was discussed with Dr. Gonzales and he concurred. We will follow the patient. Thank you very much for the courtesy of this consultation. Shar Gonzales M.D. ORTIZ Garza DR: JENNI JOB#: [id number] CC:
--- NOTE | 2019-01-14 19:24 | NUR ---
NURSE NOTES: Pt in bed awake and alert, able to make needs known, call light within reach, head of bed elevated, endorsed that pt has pain, will administer pain medication, will continue to monitor.
--- NOTE | 2019-01-14 19:24 | NUR ---
HAND-OFF: Report given to CAITIE Perla.
[2019-01-14 20:00] VITALS: BP 122/73
[2019-01-14] MEDS: Vancomycin 1gm in D5W 275ml IVPB SCH (22:16)
[2019-01-15] VITALS: BP 121/74
[2019-01-15] MEDS: HYDROmorphone 1mg/ml Carpuject IVP PRN ×11 (00:30→22:51)
[2019-01-15] MEDS: Piperacillin/Tazobactam 3.375 GM in NS 110 ML IVPB SCH ×3 (00:38→16:50)
[2019-01-15] MEDS: D5 1/2NS w/KCl 20mEq 1,000 ML IV SCH ×2 (03:30→12:24)
[2019-01-15 04:00] VITALS: BP 116/71
--- NOTE | 2019-01-15 07:37 | NUR ---
HAND-OFF: Report given to CAITIE Salcido..
--- NOTE | 2019-01-15 07:56 | NUR ---
NURSE NOTES: Patient awake, alert x4; on room air, no sing of distress and shortness of breath; IV Left For-Arm 22G D51/2ND W/Kcl 20mEq running @ 75cc; LAC 18G flushes well; Purick in place; side rails up x2, breaks engaged, bed at lowest position; call light within reach; will keep monitoring.
[2019-01-15 08:00] VITALS: BP 110/65
[2019-01-15 08:18] LABS: HEMATOCRIT 34.9 % (37.0-47.0); HEMOGLOBIN 11.9 G/DL (12.0-16.0); MEAN CORPUSCULAR VOLUME 94 FL (80-99); PLATELET COUNT 325 K/UL (150-450); RED BLOOD COUNT 3.73 M/UL (4.20-5.40); RED CELL DISTRIBUTION WIDTH 12.8 % (11.6-14.8); WHITE BLOOD COUNT 19.5 K/UL (4.8-10.8)
[2019-01-15] MEDS: Pantoprazole Inj IVP SCH (08:30)
--- NOTE | 2019-01-15 08:53 | Diagnostic Imaging Report ---
EXAM: XR Chest, 1 View CLINICAL HISTORY: COUGH TECHNIQUE: Frontal view of the chest. COMPARISON: No relevant prior studies available. FINDINGS: Lungs: Patchy consolidation in the right lower lung, concerning for pneumonia. Mild pulmonary vascular congestion. Pleural space: Unremarkable. The costophrenic angles are sharp. No visible pneumothorax. Heart: Unremarkable. No cardiomegaly. Mediastinum: Unremarkable. Bones joints: Unremarkable. Vasculature: Mild atherosclerosis in the aortic arch. Tubes, lines and devices: Port-A-Cath in the right chest wall with catheter tip in the SVC right atrial junction region. Radiodense catheter noted within the right upper abdominal quadrant. IMPRESSION: 1. Patchy consolidation in the right lower lung, concerning for pneumonia. 2. Mild pulmonary vascular congestion.
--- NOTE | 2019-01-15 08:56 | General Progress Note ---
Assessment/Plan Status: unchanged Assessment/Plan: (1) Pancreatic cancer ICD Codes: C25.9 - Malignant neoplasm of pancreas, unspecified SNOMED: 487471827 (2) Biliary drain displacement ICD Codes: T85.520A - Displacement of bile duct prosthesis, initial encounter SNOMED: 576965427 (3) Abdominal pain ICD Codes: R10.9 - Unspecified abdominal pain SNOMED: 54452577 Status: unchanged Status Narrative Discussed with Dr. Rocha Assessment/Plan Abdominal pelvis CT reviewed 1. Appropriately positioned percutaneous left biliary drain with mild intrahepatic biliary ductal dilatation. 2. Ill-defined pancreatic head/proximal body mass, likely corresponding to stated history of pancreatic neoplasm. Please note evaluation of size and vascular involvement of pancreatic masses is incomplete prior examinations and without multiphasic pancreatic protocol. 3. 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 SMV confluence is not visualized. 4. Color wall thickening with pericholecystic fluid; in the absence of distended gallbladder, these findings are critical for acute pancreatitis and clinical correlation is recommended. No plans for GI procedures at this time. Symptomatic treatment surgical recommendations, no interventions at this time Follow-up pain management recommendations ppi Trend LFTs advance diet as tolerated We will follow-up Subjective ROS Limited/Unobtainable: Yes Allergies: Coded Allergies: No Known Allergies (Unverified , 01/12/19) Objective Last 24 Hour Vital Signs Date Time Temp Pulse Resp B/P (MAP) Pulse Ox O2 Delivery O2 Flow Rate FiO2 01/15/19 04:00 97.0 86 18 116/71 (86) 95 01/15/19 00:00 98.0 88 19 121/74 (90) 97 01/14/19 21:00 Nasal Cannula 2.0 01/14/19 20:00 98.2 92 19 122/73 (89) 96 01/14/19 16:00 98.0 75 18 129/81 (97) 97 01/14/19 12:00 97.9 88 17 105/63 (77) 95 Intake and Output 01/14/19 01/15/19 19:00 07:00 Intake Total 875 ml 599.916 ml Output Total 300 ml Balance 575 ml 599.916 ml IV Total 75 ml 599.916 ml Other 800 ml Output Urine Total 100 ml Other 200 ml # Voids 3 Laboratory Tests 01/15/19 07:30: White Blood Count 19.5#H, Red Blood Count 3.73L, Hemoglobin 11.9L, Hematocrit 34.9L, Mean Corpuscular Volume 94, Mean Corpuscular Hemoglobin 31.8H, Mean Corpuscular Hemoglobin Concent 34.0, Red Cell Distribution Width 12.8, Platelet Count 325, Mean Platelet Volume 6.9, Neutrophils (%) (Auto) , Lymphocytes (%) ( Auto) , Monocytes (%) (Auto) , Eosinophils (%) (Auto) , Basophils (%) (Auto) , Neutrophils % (Manual) [Pending], Lymphocytes % (Manual) [Pending], Platelet Estimate [Pending], Platelet Morphology [Pending], Sodium Level [Pending], Potassium Level [Pending], Chloride Level [Pending], Carbon Dioxide Level [ Pending], Blood Urea Nitrogen [Pending], Creatinine [Pending], Estimat Glomerular Filtration Rate [Pending], Glucose Level [Pending], Calcium Level [ Pending], Total Bilirubin [Pending], Aspartate Amino Transf (AST/SGOT) [Pending] , Alanine Aminotransferase (ALT/SGPT) [Pending], Alkaline Phosphatase [Pending] , Total Protein [Pending], Albumin [Pending], Globulin [Pending] Height (Feet): 5 Height (Inches): 3.00 Weight (Pounds): 132 General Appearance: alert EENT: normal ENT inspection Neck: supple Cardiovascular: normal rate Respiratory/Chest: decreased breath sounds Abdomen: normal bowel sounds, non tender, soft Extremities: non-tender Indra Rocha MD Jan 15, 2019 08:56
[2019-01-15 09:38] LABS: ALANINE AMINOTRANSFERASE 41 U/L (12-78); ALBUMIN 1.6 G/DL (3.4-5.0); ALBUMIN/GLOBULIN RATIO 0.4 (1.0-2.7); ALKALINE PHOSPHATASE 174 U/L (46-116); ANION GAP 6 mmol/L (5-15); ASPARTATE AMINO TRANSFERASE 21 U/L (15-37); BILIRUBIN,TOTAL 1.2 MG/DL (0.2-1.0); BLOOD UREA NITROGEN 9 mg/dL (7-18); CALCIUM 8.7 MG/DL (8.5-10.1); CARBON DIOXIDE 30 MMOL/L (21-32); CHLORIDE 99 MMOL/L (98-107); CREATININE 0.5 MG/DL (0.55-1.30); POTASSIUM 3.4 MMOL/L (3.5-5.1); SODIUM 135 MMOL/L (136-145)
[2019-01-15 09:41] LABS: BILIRUBIN,DIRECT 0.7 MG/DL (0.0-0.3)
[2019-01-15 12:00] VITALS: BP 126/75
--- NOTE | 2019-01-15 12:16 | Infectious Diseases Prog Note ---
Assessment/Plan Assessment/Plan Assessment: Sepsis- r/o bacteremia PNA, CAP -CXR: . Patchy consolidation in the right lower lung, concerning for pneumonia. Mild pulmonary vascular congestion. Abdominal pain -CT abd/p: Appropriately positioned percutaneous left biliary drain with mild intrahepatic biliary ductal dilatation. Ill-defined pancreatic head/ proximal body mass, likely corresponding to stated history of pancreatic neoplasm. Please note evaluation of size and vascular involvement of pancreatic masses is incomplete prior examinations and without multiphasic pancreatic protocol. 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 SMV confluence is not visualized. Gallbladder wall thickening with pericholecystic fluid; in the absence of distended gallbladder, these findings are critical for acute pancreatitis and clinical correlation is recommended. Fever; improving Leukocytosis; worsening recently diagnosed pancreatic CA 11/2018 - s/p biliary drain 1 week [facility] at [facility] -sp 1st chemotherapy treatment 01/10/19 tobacco abuse Plan: -Cont empiric Zosyn and IV Vancomycin #2 -add empiric Tamiflu and Azithromycin -f/u cx -Monitor CBC/CMP, temperatures -f/u Bcx x2 -f/u Abd US -aspiration precautions -influenza pCR, sp cx Thank you for this consultation. Will continue to follow along with you. Discussed with RN Subjective Allergies: Coded Allergies: No Known Allergies (Unverified , 01/12/19) Subjective afebrile in >36hrs wbc increased Objective Vital Signs Last 24 Hour Vital Signs Date Time Temp Pulse Resp B/P (MAP) Pulse Ox O2 Delivery O2 Flow Rate FiO2 01/15/19 10:43 97.0 01/15/19 09:00 Nasal Cannula 2.0 01/15/19 08:00 98.4 85 18 110/65 (80) 96 01/15/19 04:00 97.0 86 18 116/71 (86) 95 01/15/19 00:00 98.0 88 19 121/74 (90) 97 01/14/19 21:00 Nasal Cannula 2.0 01/14/19 20:00 98.2 92 19 122/73 (89) 96 01/14/19 16:00 98.0 75 18 129/81 (97) 97 Height (Feet): 5 Height (Inches): 3.00 Weight (Pounds): 132 Objective General appearance: alert, cooperative, no distress, appears stated age Head: Normocephalic, without obvious abnormality, atraumatic Eyes: conjunctivae/corneas clear. PERRL, EOM's intact. Fundi benign Throat: Lips, mucosa, and tongue normal. Teeth and gums normal Neck: supple, symmetrical, trachea midline, no adenopathy, thyroid: not enlarged, symmetric, no tenderness/mass/nodules, no carotid bruit and no JVD Lungs: clear to auscultation bilaterally Heart: regular rate and rhythm, S1, S2 normal, no murmur, click, rub or gallop Abdomen: soft, minimal tender. Bowel sounds normal. No masses, no organomegaly Extremities: extremities normal, atraumatic, no cyanosis or edema +drain cap Pulses: 2+ and symmetric Skin: Skin color, texture, turgor normal. No rashes or lesions Neurologic: Grossly normal Laboratory Tests Test 01/15/19 07:30 White Blood Count 19.5 K/UL (4.8-10.8) #H Red Blood Count 3.73 M/UL (4.20-5.40) L Hemoglobin 11.9 G/DL (12.0-16.0) L Hematocrit 34.9 % (37.0-47.0) L Mean Corpuscular Volume 94 FL (80-99) Mean Corpuscular Hemoglobin 31.8 PG (27.0-31.0) H Mean Corpuscular Hemoglobin Concent 34.0 G/DL (32.0-36.0) Red Cell Distribution Width 12.8 % (11.6-14.8) Platelet Count 325 K/UL (150-450) Mean Platelet Volume 6.9 FL (6.5-10.1) Neutrophils (%) (Auto) % (45.0-75.0) Lymphocytes (%) (Auto) % (20.0-45.0) Monocytes (%) (Auto) % (1.0-10.0) Eosinophils (%) (Auto) % (0.0-3.0) Basophils (%) (Auto) % (0.0-2.0) Differential Total Cells Counted 100 Neutrophils % (Manual) 95 % (45-75) H Lymphocytes % (Manual) 3 % (20-45) L Monocytes % (Manual) 2 % (1-10) Eosinophils % (Manual) 0 % (0-3) Basophils % (Manual) 0 % (0-2) Band Neutrophils 0 % (0-8) Nucleated Red Blood Cells 1 /100 WBC Platelet Estimate Adequate Platelet Morphology Normal Red Blood Cell Morphology Normal Sodium Level 135 MMOL/L (136-145) L Potassium Level 3.4 MMOL/L (3.5-5.1) L Chloride Level 99 MMOL/L (98-107) Carbon Dioxide Level 30 MMOL/L (21-32) Anion Gap 6 mmol/L (5-15) Blood Urea Nitrogen 9 mg/dL (7-18) Creatinine 0.5 MG/DL (0.55-1.30) L Estimat Glomerular Filtration Rate > 60 mL/min (>60) Glucose Level 96 MG/DL (74-106) Calcium Level 8.7 MG/DL (8.5-10.1) Total Bilirubin 1.2 MG/DL (0.2-1.0) H Direct Bilirubin 0.7 MG/DL (0.0-0.3) H Aspartate Amino Transf (AST/SGOT) 21 U/L (15-37) Alanine Aminotransferase (ALT/SGPT) 41 U/L (12-78) Alkaline Phosphatase 174 U/L (46-116) H Total Protein 5.7 G/DL (6.4-8.2) L Albumin 1.6 G/DL (3.4-5.0) L Globulin 4.1 g/dL Albumin/Globulin Ratio 0.4 (1.0-2.7) L Current Medications Medications (Trade) Dose Ordered Sig/Zuleima Route PRN Reason Start Time Stop Time Status Last Admin Dose Admin Acetaminophen (Tylenol) 650 mg Q8H PRN ORAL Mild Pain/Temp > 100.5 01/12/19 17:30 02/11/19 17:29 01/13/19 17:27 Dextrose (Dextrose 50%) 25 ml Q30M PRN IV Hypoglycemia 01/12/19 13:45 02/11/19 13:44 Dextrose (Dextrose 50%) 50 ml Q30M PRN IV Hypoglycemia 01/12/19 13:45 02/11/19 13:44 Dextrose/ Electrolytes 1,000 ml @ 75 mls/hr [id number] IV 01/12/19 15:00 02/11/19 14:59 01/15/19 03:30 Fentanyl (Duragesic) 1 patch Q72H TDERMAL 10/25/19 09:00 01/21/19 08:59 UNV Hydromorphone HCl (Dilaudid) 1 mg Q2H PRN IVP PAIN 7-10 01/13/19 18:15 01/20/19 18:14 01/15/19 10:13 Miscellaneous Medication (fentaNYL Destruction) 1 ea Q72H MISC 01/14/19 09:00 02/13/19 08:59 UNV Naloxone HCl (Narcan) 0.1 mg PRN IV Sedation scale 3 or 4 01/14/19 09:00 UNV Ondansetron HCl (Zofran) 4 mg Q6H PRN IVP Nausea & Vomiting 01/12/19 13:45 02/11/19 13:44 Pantoprazole (Protonix) 40 mg DAILY IVP 01/12/19 16:45 02/11/19 16:44 01/15/19 08:30 Piperacillin Sod/ Tazobactam Sod 3.375 gm/Sodium Chloride 110 ml @ 27.5 mls/hr Q8H IVPB 01/14/19 17:00 01/21/19 16:59 01/15/19 08:30 Vancomycin HCl (Vanco rx to dose) 1 ea DAILY PRN MISC Per rx protocol 01/14/19 20:30 02/13/19 20:29 Vancomycin HCl 1 gm/Dextrose 275 ml @ 183.708 mls/hr Q12HR@1000,2200 IVPB 01/14/19 22:00 01/19/19 21:59 01/14/19 22:16 Yeni Aldridge M.D. Jan 15, 2019 12:16
--- NOTE | 2019-01-15 12:19 | Hematology/Onc Progress Note ---
Assessment/Plan Assessment/Plan Assessment/Plan # Pancreatic cancer, non-resectable, based on patient's info. Had a Abdominal pelvis CT reviewed 1. Appropriately positioned percutaneous left biliary drain with mild intrahepatic biliary ductal dilatation. 2. Ill-defined pancreatic head/proximal body mass, likely corresponding to stated history of pancreatic neoplasm. Please note evaluation of size and vascular involvement of pancreatic masses is incomplete prior examinations and without multiphasic pancreatic protocol. 3. 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 She has already started rx. --> gi recs noted No plans for GI procedures at this time. --> surgical recommendations, no interventions at this time --> likely to continue chemo and XRT as needed with Dr. Elias Bernal --> CA 19.9 688, in general with this presentation, poor prognosis # Anemia of myelosuppressive chemo --> okay to continue on chemo at this time --> epo as stimulating factor if drops --> dw patient risks of dvt/VTE # Transaminitis --> Trend LFTs --> per gi --> advance diet as tolerated # Dvt ppx scds Appreciate consultation and dw RN Subjective Constitutional: Denies: no symptoms, chills, fever, malaise, weakness, other HEENT: Denies: no symptoms, eye pain, blurred vision, tearing, double vision, ear pain, ear discharge, nose pain, nose congestion, throat pain, throat swelling, mouth pain, mouth swelling, other Cardiovascular: Denies: no symptoms, chest pain, edema, irregular heart rate, lightheadedness, palpitations, syncope, other Respiratory: Denies: no symptoms, cough, shortness of breath, SOB with excertion, SOB at rest, sputum, wheezing, other Gastrointestinal/Abdominal: Denies: no symptoms, abdomen distended, abdominal pain, black stools, tarry stools, blood in stool, constipated, diarrhea, difficulty swallowing, nausea, poor appetite, poor fluid intake, rectal bleeding , vomiting, other Genitourinary: Denies: no symptoms, burning, discharge, frequency, flank pain, hematuria, incontinence, pain, urgency, other Endocrine: Denies: no symptoms, excessive sweating, flushing, intolerance to cold, intolerance to heat, increased hunger, increased thirst, increased urine, unexplained weight gain, unexplained weight loss, other Allergies: Coded Allergies: No Known Allergies (Unverified , 01/12/19) Subjective 01/13: no events to report, no f/c, no night sweats 01/14: no bleeding, on meds, ivf 01/15: no major changes, dw patient, some minor abd pain Objective Objective Current Medications Medications (Trade) Dose Ordered Sig/Zuleima Route PRN Reason Start Time Stop Time Status Last Admin Dose Admin Acetaminophen (Tylenol) 650 mg Q8H PRN ORAL Mild Pain/Temp > 100.5 01/12/19 17:30 02/11/19 17:29 01/13/19 17:27 Azithromycin (Zithromax) 500 mg DAILY ORAL 01/15/19 12:15 01/22/19 12:14 UNV Dextrose (Dextrose 50%) 25 ml Q30M PRN IV Hypoglycemia 01/12/19 13:45 02/11/19 13:44 Dextrose (Dextrose 50%) 50 ml Q30M PRN IV Hypoglycemia 01/12/19 13:45 02/11/19 13:44 Dextrose/ Electrolytes 1,000 ml @ 75 mls/hr [id number] IV 01/12/19 15:00 02/11/19 14:59 01/15/19 03:30 Fentanyl (Duragesic) 1 patch Q72H TDERMAL 01/14/19 09:00 01/21/19 08:59 UNV Hydromorphone HCl (Dilaudid) 1 mg Q2H PRN IVP PAIN 7-10 01/13/19 18:15 01/20/19 18:14 01/15/19 10:13 Miscellaneous Medication (fentaNYL Destruction) 1 ea Q72H MISC 01/14/19 09:00 02/13/19 08:59 UNV Naloxone HCl (Narcan) 0.1 mg PRN IV Sedation scale 3 or 4 01/14/19 09:00 UNV Ondansetron HCl (Zofran) 4 mg Q6H PRN IVP Nausea & Vomiting 01/12/19 13:45 02/11/19 13:44 Oseltamivir Phosphate (Tamiflu) 75 mg TWICE A DAY ORAL 01/15/19 12:15 01/20/19 12:14 UNV Pantoprazole (Protonix) 40 mg DAILY IVP 01/12/19 16:45 02/11/19 16:44 01/15/19 08:30 Piperacillin Sod/ Tazobactam Sod 3.375 gm/Sodium Chloride 110 ml @ 27.5 mls/hr Q8H IVPB 01/14/19 17:00 01/21/19 16:59 01/15/19 08:30 Vancomycin HCl (Vanco rx to dose) 1 ea DAILY PRN MISC Per rx protocol 01/14/19 20:30 02/13/19 20:29 Vancomycin HCl 1 gm/Dextrose 275 ml @ 183.708 mls/hr Q12HR@1000,2200 IVPB 01/14/19 22:00 01/19/19 21:59 01/14/19 22:16 Last 24 Hour Vital Signs Date Time Temp Pulse Resp B/P (MAP) Pulse Ox O2 Delivery O2 Flow Rate FiO2 01/15/19 10:43 97.0 01/15/19 09:00 Nasal Cannula 2.0 01/15/19 08:00 98.4 85 18 110/65 (80) 96 01/15/19 04:00 97.0 86 18 116/71 (86) 95 01/15/19 00:00 98.0 88 19 121/74 (90) 97 01/14/19 21:00 Nasal Cannula 2.0 01/14/19 20:00 98.2 92 19 122/73 (89) 96 01/14/19 16:00 98.0 75 18 129/81 (97) 97 01/14/19 12:00 97.9 88 17 105/63 (77) 95 01/14/19 08:00 Nasal Cannula 2.0 01/14/19 08:00 97.7 91 18 108/67 (81) 95 01/14/19 04:00 97.2 86 18 119/74 (89) 97 01/14/19 00:00 97.2 86 19 95/59 (71) 98 01/13/19 21:00 Nasal Cannula 2.0 01/13/19 20:00 98.2 100 19 118/65 (82) 97 01/13/19 18:46 101.0 01/13/19 16:00 98.2 101 17 122/78 (93) 98 Intake and Output 01/14/19 01/15/19 19:00 07:00 Intake Total 875 ml 674.916 ml Output Total 300 ml Balance 575 ml 674.916 ml IV Total 75 ml 674.916 ml Other 800 ml Output Urine Total 100 ml Other 200 ml # Voids 3 Labs Test 01/13/19 05:30 01/14/19 05:15 01/15/19 07:30 White Blood Count 12.7 K/UL (4.8-10.8) 12.4 K/UL (4.8-10.8) 19.5 K/UL (4.8-10.8) Red Blood Count 3.66 M/UL (4.20-5.40) 3.72 M/UL (4.20-5.40) 3.73 M/UL (4.20-5.40) Hemoglobin 11.9 G/DL (12.0-16.0) 11.9 G/DL (12.0-16.0) 11.9 G/DL (12.0-16.0) Hematocrit 34.6 % (37.0-47.0) 35.3 % (37.0-47.0) 34.9 % (37.0-47.0) Mean Corpuscular Volume 95 FL (80-99) 95 FL (80-99) 94 FL (80-99) Mean Corpuscular Hemoglobin 32.5 PG (27.0-31.0) 32.0 PG (27.0-31.0) 31.8 PG (27.0-31.0) Mean Corpuscular Hemoglobin Concent 34.3 G/DL (32.0-36.0) 33.7 G/DL (32.0-36.0) 34.0 G/DL (32.0-36.0) Red Cell Distribution Width 12.9 % (11.6-14.8) 12.9 % (11.6-14.8) 12.8 % (11.6-14.8) Platelet Count 403 K/UL (150-450) 382 K/UL (150-450) 325 K/UL (150-450) Mean Platelet Volume 7.9 FL (6.5-10.1) 7.4 FL (6.5-10.1) 6.9 FL (6.5-10.1) Neutrophils (%) (Auto) % (45.0-75.0) % (45.0-75.0) % (45.0-75.0) Lymphocytes (%) (Auto) % (20.0-45.0) % (20.0-45.0) % (20.0-45.0) Monocytes (%) (Auto) % (1.0-10.0) % (1.0-10.0) % (1.0-10.0) Eosinophils (%) (Auto) % (0.0-3.0) % (0.0-3.0) % (0.0-3.0) Basophils (%) (Auto) % (0.0-2.0) % (0.0-2.0) % (0.0-2.0) Differential Total Cells Counted 100 100 100 Neutrophils % (Manual) 95 % (45-75) 91 % (45-75) 95 % (45-75) Lymphocytes % (Manual) 3 % (20-45) 3 % (20-45) 3 % (20-45) Monocytes % (Manual) 1 % (1-10) 1 % (1-10) 2 % (1-10) Eosinophils % (Manual) 1 % (0-3) 1 % (0-3) 0 % (0-3) Basophils % (Manual) 0 % (0-2) 0 % (0-2) 0 % (0-2) Band Neutrophils 0 % (0-8) 4 % (0-8) 0 % (0-8) Platelet Estimate Adequate Adequate Adequate Platelet Morphology Normal Normal Normal Red Blood Cell Morphology Normal Normal Normal Prothrombin Time 13.6 SEC (9.30-11.50) Prothromb Time International Ratio 1.3 (0.9-1.1) Activated Partial Thromboplast Time 33 SEC (23-33) Sodium Level 134 MMOL/L (136-145) 134 MMOL/L (136-145) 135 MMOL/L (136-145) Potassium Level 3.7 MMOL/L (3.5-5.1) 3.5 MMOL/L (3.5-5.1) 3.4 MMOL/L (3.5-5.1) Chloride Level 102 MMOL/L (98-107) 99 MMOL/L (98-107) 99 MMOL/L (98-107) Carbon Dioxide Level 27 MMOL/L (21-32) 27 MMOL/L (21-32) 30 MMOL/L (21-32) Anion Gap 5 mmol/L (5-15) 8 mmol/L (5-15) 6 mmol/L (5-15) Blood Urea Nitrogen 9 mg/dL (7-18) 12 mg/dL (7-18) 9 mg/dL (7-18) Creatinine 0.4 MG/DL (0.55-1.30) 0.5 MG/DL (0.55-1.30) 0.5 MG/DL (0.55-1.30) Estimat Glomerular Filtration Rate > 60 mL/min (>60) > 60 mL/min (>60) > 60 mL/min (>60) Glucose Level 87 MG/DL (74-106) 92 MG/DL (74-106) 96 MG/DL (74-106) Calcium Level 8.1 MG/DL (8.5-10.1) 8.5 MG/DL (8.5-10.1) 8.7 MG/DL (8.5-10.1) Total Bilirubin 1.2 MG/DL (0.2-1.0) 1.2 MG/DL (0.2-1.0) 1.2 MG/DL (0.2-1.0) Direct Bilirubin 0.8 MG/DL (0.0-0.3) 0.7 MG/DL (0.0-0.3) 0.7 MG/DL (0.0-0.3) Aspartate Amino Transf (AST/SGOT) 45 U/L (15-37) 33 U/L (15-37) 21 U/L (15-37) Alanine Aminotransferase (ALT/SGPT) 68 U/L (12-78) 65 U/L (12-78) 41 U/L (12-78) Alkaline Phosphatase 194 U/L (46-116) 172 U/L (46-116) 174 U/L (46-116) Total Protein 5.7 G/DL (6.4-8.2) 5.7 G/DL (6.4-8.2) 5.7 G/DL (6.4-8.2) Albumin 1.7 G/DL (3.4-5.0) 1.6 G/DL (3.4-5.0) 1.6 G/DL (3.4-5.0) Globulin 4.0 g/dL 4.1 g/dL 4.1 g/dL Albumin/Globulin Ratio 0.4 (1.0-2.7) 0.4 (1.0-2.7) 0.4 (1.0-2.7) Amylase Level 14 U/L (25-115) Lipase 53 U/L (73-393) Phosphorus Level 3.6 MG/DL (2.5-4.9) Magnesium Level 1.8 MG/DL (1.8-2.4) Nucleated Red Blood Cells 1 /100 WBC Height (Feet): 5 Height (Inches): 3.00 Weight (Pounds): 132 Roberto Davidson MD Jan 15, 2019 12:19
[2019-01-15] MEDS: Vancomycin 1gm in D5W 275ml IVPB SCH ×2 (12:25→22:52)
--- NOTE | 2019-01-15 13:00 | NUR ---
NURSE NOTES: Urine collected and sent to lab; waiting for results; Sputum cab provided to patient;
--- NOTE | 2019-01-15 14:00 | NUR ---
NURSE NOTES: Swaps for Influenza A & B Antigen done, waiting for results.
--- NOTE | 2019-01-15 14:03 | Surgery Progress Note ---
Surgery Progress Note Subjective Additional Comments Worsening leukocytosis. LFT stable. States she actually feels better today. No nausea vomiting. States she has not a bowel movement in 4 days and feels constipated. Tube capped yesterday and while since. Objective Last 24 Hour Vital Signs Date Time Temp Pulse Resp B/P (MAP) Pulse Ox O2 Delivery O2 Flow Rate FiO2 01/15/19 12:55 97.0 01/15/19 09:00 Nasal Cannula 2.0 01/15/19 08:00 98.4 85 18 110/65 (80) 96 01/15/19 04:00 97.0 86 18 116/71 (86) 95 01/15/19 00:00 98.0 88 19 121/74 (90) 97 01/14/19 21:00 Nasal Cannula 2.0 01/14/19 20:00 98.2 92 19 122/73 (89) 96 01/14/19 16:00 98.0 75 18 129/81 (97) 97 I&O Intake and Output 01/14/19 01/15/19 19:00 07:00 Intake Total 875 ml 674.916 ml Output Total 300 ml Balance 575 ml 674.916 ml IV Total 75 ml 674.916 ml Other 800 ml Output Urine Total 100 ml Other 200 ml # Voids 3 Dressing: dry Wound: clean Drains: other Cardiovascular: RSR Respiratory: clear Abdomen: soft, non-tender, present bowel sounds, non-distended Extremities: no edema, no tenderness, no cyanosis Laboratory Tests Test 01/15/19 07:30 01/15/19 12:56 White Blood Count 19.5 K/UL (4.8-10.8) #H Red Blood Count 3.73 M/UL (4.20-5.40) L Hemoglobin 11.9 G/DL (12.0-16.0) L Hematocrit 34.9 % (37.0-47.0) L Mean Corpuscular Volume 94 FL (80-99) Mean Corpuscular Hemoglobin 31.8 PG (27.0-31.0) H Mean Corpuscular Hemoglobin Concent 34.0 G/DL (32.0-36.0) Red Cell Distribution Width 12.8 % (11.6-14.8) Platelet Count 325 K/UL (150-450) Mean Platelet Volume 6.9 FL (6.5-10.1) Neutrophils (%) (Auto) % (45.0-75.0) Lymphocytes (%) (Auto) % (20.0-45.0) Monocytes (%) (Auto) % (1.0-10.0) Eosinophils (%) (Auto) % (0.0-3.0) Basophils (%) (Auto) % (0.0-2.0) Differential Total Cells Counted 100 Neutrophils % (Manual) 95 % (45-75) H Lymphocytes % (Manual) 3 % (20-45) L Monocytes % (Manual) 2 % (1-10) Eosinophils % (Manual) 0 % (0-3) Basophils % (Manual) 0 % (0-2) Band Neutrophils 0 % (0-8) Nucleated Red Blood Cells 1 /100 WBC Platelet Estimate Adequate Platelet Morphology Normal Red Blood Cell Morphology Normal Sodium Level 135 MMOL/L (136-145) L Potassium Level 3.4 MMOL/L (3.5-5.1) L Chloride Level 99 MMOL/L (98-107) Carbon Dioxide Level 30 MMOL/L (21-32) Anion Gap 6 mmol/L (5-15) Blood Urea Nitrogen 9 mg/dL (7-18) Creatinine 0.5 MG/DL (0.55-1.30) L Estimat Glomerular Filtration Rate > 60 mL/min (>60) Glucose Level 96 MG/DL (74-106) Calcium Level 8.7 MG/DL (8.5-10.1) Total Bilirubin 1.2 MG/DL (0.2-1.0) H Direct Bilirubin 0.7 MG/DL (0.0-0.3) H Aspartate Amino Transf (AST/SGOT) 21 U/L (15-37) Alanine Aminotransferase (ALT/SGPT) 41 U/L (12-78) Alkaline Phosphatase 174 U/L (46-116) H Total Protein 5.7 G/DL (6.4-8.2) L Albumin 1.6 G/DL (3.4-5.0) L Globulin 4.1 g/dL Albumin/Globulin Ratio 0.4 (1.0-2.7) L Urine Legionella Antigen Pending Plan Problems: (1) Abdominal pain Assessment & Plan: 63-year-old female patient with history of recently diagnosed pancreatic cancer in November 2018 presented to the emergency room at [facility] [place] [facility] [place] with complaint of abdominal pain for approximately 1 hour. Patient is status post a biliary drain placement at [facility] approximately 1 week ago. She reported that she had a first treatment of chemotherapy this past Thursday. The patient denied any nausea vomiting, denies any constipation or diarrhea. She states her pain medication was unable to relieve her pain. no fever or chills. labs as below. C Tnoted. surgery called to assist with care and management. tube checked okay for diet leave tube in place with cap stable otherwise from surgical standpoint no acute surgical intervention planned iv fluids trend labs will monitor and follow with exam thank you (2) Biliary drain displacement Assessment & Plan: Daughter was able to inform me with a lot of history. Seems patient unresectable initially and attempted biliary drain placed endoscopically but unsuccessful. A external biliary drain was placed by radiology. Would patient was getting her Port-A-Cath placed a another radiologist felt he could place a internal/external biliary drain and he was able to successfully place a internal/external biliary drain. Had the trade Since. Fell off and she has been without it to drainage recently. In evaluating the trade she has some bilious output from the drain and on imaging drain looks to be appropriately placed. Labs reviewed stable. Will plan on cap the drain as it is internal/external it should drain internally IMPRESSION: 1. Appropriately positioned percutaneous left biliary drain with mild intrahepatic biliary ductal dilatation. 2. Ill-defined pancreatic head/proximal body mass, likely corresponding to stated history of pancreatic neoplasm. Please note evaluation of size and vascular involvement of pancreatic masses is incomplete prior examinations and without multiphasic pancreatic protocol. 3. 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 SMV confluence is not visualized. 4. Color wall thickening with pericholecystic fluid; in the absence of distended gallbladder, these findings are critical for acute pancreatitis and clinical correlation is recommended. (3) Pancreatic cancer Assessment & Plan: Pancreatic cancer, non-resectable, based on patient's info. Had a Abdominal pelvis CT reviewed 1. Appropriately positioned percutaneous left biliary drain with mild intrahepatic biliary ductal dilatation. 2. Ill- defined pancreatic head/proximal body mass, likely corresponding to stated history of pancreatic neoplasm. Please note evaluation of size and vascular involvement of pancreatic masses is incomplete prior examinations and without multiphasic pancreatic protocol. 3. 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 She has already started rx Jim Gates Jan 15, 2019 14:02
[2019-01-15] MEDS: Azithromycin 250mg tab ORAL SCH (14:11)
[2019-01-15] MEDS: Oseltamivir 75mg cap ORAL SCH ×2 (14:12→20:53)
[2019-01-15] MEDS ORDERED: Milk of Magnesia 30ml Ud ORAL SCH (14:30)
--- NOTE | 2019-01-15 14:57 | General Progress Note ---
Assessment/Plan Problem List: (1) SOB (shortness of breath) ICD Codes: R06.02 - Shortness of breath SNOMED: 572843117 (2) Nausea & vomiting ICD Codes: R11.2 - Nausea with vomiting, unspecified SNOMED: 17843577 (3) Malnutrition ICD Codes: E46 - Unspecified protein-calorie malnutrition SNOMED: 23855043 (4) UTI (urinary tract infection) ICD Codes: N39.0 - Urinary tract infection, site not specified SNOMED: 85458972 (5) Abdominal pain ICD Codes: R10.9 - Unspecified abdominal pain SNOMED: 00088983 (6) Biliary drain displacement ICD Codes: T85.520A - Displacement of bile duct prosthesis, initial encounter SNOMED: 271797136 (7) Pancreatic cancer ICD Codes: C25.9 - Malignant neoplasm of pancreas, unspecified SNOMED: 515352193 Status: unchanged Assessment/Plan: pt diet pain control abx cbc bmp am Subjective Constitutional: Reports: weakness Allergies: Coded Allergies: No Known Allergies (Unverified , 01/12/19) All Systems: reviewed and negative except above Subjective o2nc sl nausea abd pain Objective Last 24 Hour Vital Signs Date Time Temp Pulse Resp B/P (MAP) Pulse Ox O2 Delivery O2 Flow Rate FiO2 01/15/19 12:55 97.0 01/15/19 09:00 Nasal Cannula 2.0 01/15/19 08:00 98.4 85 18 110/65 (80) 96 01/15/19 04:00 97.0 86 18 116/71 (86) 95 01/15/19 00:00 98.0 88 19 121/74 (90) 97 01/14/19 21:00 Nasal Cannula 2.0 01/14/19 20:00 98.2 92 19 122/73 (89) 96 01/14/19 16:00 98.0 75 18 129/81 (97) 97 Intake and Output 01/14/19 01/15/19 19:00 07:00 Intake Total 875 ml 674.916 ml Output Total 300 ml Balance 575 ml 674.916 ml IV Total 75 ml 674.916 ml Other 800 ml Output Urine Total 100 ml Other 200 ml # Voids 3 Laboratory Tests 01/15/19 07:30: White Blood Count 19.5#H, Red Blood Count 3.73L, Hemoglobin 11.9L, Hematocrit 34.9L, Mean Corpuscular Volume 94, Mean Corpuscular Hemoglobin 31.8H, Mean Corpuscular Hemoglobin Concent 34.0, Red Cell Distribution Width 12.8, Platelet Count 325, Mean Platelet Volume 6.9, Neutrophils (%) (Auto) , Lymphocytes (%) ( Auto) , Monocytes (%) (Auto) , Eosinophils (%) (Auto) , Basophils (%) (Auto) , Differential Total Cells Counted 100, Neutrophils % (Manual) 95H, Lymphocytes % (Manual) 3L, Monocytes % (Manual) 2, Eosinophils % (Manual) 0, Basophils % ( Manual) 0, Band Neutrophils 0, Nucleated Red Blood Cells 1, Platelet Estimate Adequate, Platelet Morphology Normal, Red Blood Cell Morphology Normal, Sodium Level 135L, Potassium Level 3.4L, Chloride Level 99, Carbon Dioxide Level 30, Anion Gap 6, Blood Urea Nitrogen 9, Creatinine 0.5L, Estimat Glomerular Filtration Rate > 60, Glucose Level 96, Calcium Level 8.7, Total Bilirubin 1.2H , Direct Bilirubin 0.7H, Aspartate Amino Transf (AST/SGOT) 21, Alanine Aminotransferase (ALT/SGPT) 41, Alkaline Phosphatase 174H, Total Protein 5.7L, Albumin 1.6L, Globulin 4.1, Albumin/Globulin Ratio 0.4L 01/15/19 12:56: Urine Legionella Antigen [Pending] Height (Feet): 5 Height (Inches): 3.00 Weight (Pounds): 132 General Appearance: lethargic EENT: normal ENT inspection Neck: normal alignment Cardiovascular: normal peripheral pulses, normal rate, regular rhythm Respiratory/Chest: chest wall non-tender, lungs clear, normal breath sounds Abdomen: normal bowel sounds, non tender, soft Extremities: normal inspection Edema: no edema noted Arm (L), no edema noted Arm (R), no edema noted Leg (L), no edema noted Leg (R), no edema noted Pedal (L), no edema noted Pedal (R), no edema noted Generalized Neurologic: motor weakness Skin: normal pigmentation, warm/dry Elvis LukeMelanie Jan 15, 2019 14:57
[2019-01-15 16:00] VITALS: BP 126/70
[2019-01-15] MEDS: Docusate 100mg cap ORAL SCH (17:15)
--- NOTE | 2019-01-15 19:42 | NUR ---
NURSE NOTES: Pt received in bed awake, with IV fluids running and abx running, no c/o pain or signs of distress, nasal cannuli in place, will continue to monitor and encourage pt to eat.
--- NOTE | 2019-01-15 19:46 | NUR ---
HAND-OFF: Report given to CAITIE Higgins.
[2019-01-15 20:00] VITALS: BP 125/70
[2019-01-16] VITALS: BP 129/73
[2019-01-16] MEDS: HYDROmorphone 1mg/ml Carpuject IVP PRN ×6 (01:32→20:48)
[2019-01-16] MEDS: Piperacillin/Tazobactam 3.375 GM in NS 110 ML IVPB SCH ×3 (02:29→17:00)
[2019-01-16] MEDS: D5 1/2NS w/KCl 20mEq 1,000 ML IV SCH ×2 (02:29→14:49)
[2019-01-16 04:00] VITALS: BP 118/68
--- NOTE | 2019-01-16 06:47 | NUR ---
NURSE NOTES: Left message for Dr. Reid regarding pt complaint that dilaudid is not helping with her pain. Left message for Dr. Luke regarding PRN laxative medication order. will endorse to AM nurse
--- NOTE | 2019-01-16 07:29 | NUR ---
HAND-OFF: Report given to CAITIE Chow.
[2019-01-16 07:37] LABS: HEMATOCRIT 34.4 % (37.0-47.0); HEMOGLOBIN 11.9 G/DL (12.0-16.0); MEAN CORPUSCULAR VOLUME 93 FL (80-99); PLATELET COUNT 268 K/UL (150-450); RED BLOOD COUNT 3.71 M/UL (4.20-5.40); RED CELL DISTRIBUTION WIDTH 12.7 % (11.6-14.8)
--- NOTE | 2019-01-16 07:47 | General Progress Note ---
Assessment/Plan Problem List: (1) SOB (shortness of breath) ICD Codes: R06.02 - Shortness of breath SNOMED: 884052508 (2) Nausea & vomiting ICD Codes: R11.2 - Nausea with vomiting, unspecified SNOMED: 98128082 (3) Malnutrition ICD Codes: E46 - Unspecified protein-calorie malnutrition SNOMED: 85849361 (4) UTI (urinary tract infection) ICD Codes: N39.0 - Urinary tract infection, site not specified SNOMED: 86625322 (5) Abdominal pain ICD Codes: R10.9 - Unspecified abdominal pain SNOMED: 19533725 (6) Biliary drain displacement ICD Codes: T85.520A - Displacement of bile duct prosthesis, initial encounter SNOMED: 554804331 (7) Pancreatic cancer ICD Codes: C25.9 - Malignant neoplasm of pancreas, unspecified SNOMED: 320563498 Status: unchanged Assessment/Plan: pt diet pain control abx cbc bmp am Subjective Constitutional: Reports: weakness Allergies: Coded Allergies: No Known Allergies (Unverified , 01/12/19) All Systems: reviewed and negative except above Subjective o2nc sl nausea abd pain Objective Last 24 Hour Vital Signs Date Time Temp Pulse Resp B/P (MAP) Pulse Ox O2 Delivery O2 Flow Rate FiO2 01/16/19 04:00 96.7 83 19 118/68 (85) 96 01/16/19 00:00 96.9 89 19 129/73 (91) 98 01/15/19 21:00 Nasal Cannula 2.0 01/15/19 20:00 96.3 90 19 125/70 (88) 96 01/15/19 19:22 97.0 01/15/19 16:00 98.0 82 18 126/70 (88) 97 01/15/19 12:00 98.4 85 18 126/75 (92) 96 01/15/19 09:00 Nasal Cannula 2.0 01/15/19 08:00 98.4 85 18 110/65 (80) 96 Intake and Output 01/15/19 01/16/19 19:00 07:00 Intake Total 1829.916 ml 1794.916 ml Output Total 650 ml Balance 1829.916 ml 1144.916 ml Intake Oral 0 ml IV Total 1029.916 ml 994.916 ml Other 800 ml 800 ml Drainage Total 450 ml Other 200 ml # Voids 2 Laboratory Tests 01/15/19 12:56: Urine Legionella Antigen [Pending] 01/16/19 06:40: White Blood Count 22.0H, Red Blood Count 3.71L, Hemoglobin 11.9L, Hematocrit 34.4L, Mean Corpuscular Volume 93, Mean Corpuscular Hemoglobin 32.2H, Mean Corpuscular Hemoglobin Concent 34.7, Red Cell Distribution Width 12.7, Platelet Count 268, Mean Platelet Volume 6.7, Neutrophils (%) (Auto) , Lymphocytes (%) ( Auto) , Monocytes (%) (Auto) , Eosinophils (%) (Auto) , Basophils (%) (Auto) , Neutrophils % (Manual) [Pending], Lymphocytes % (Manual) [Pending], Platelet Estimate [Pending], Platelet Morphology [Pending], Sodium Level [Pending], Potassium Level [Pending], Chloride Level [Pending], Carbon Dioxide Level [ Pending], Blood Urea Nitrogen [Pending], Creatinine [Pending], Estimat Glomerular Filtration Rate [Pending], Glucose Level [Pending], Calcium Level [ Pending] Height (Feet): 5 Height (Inches): 3.00 Weight (Pounds): 132 General Appearance: lethargic EENT: normal ENT inspection Neck: normal alignment Cardiovascular: normal peripheral pulses, normal rate, regular rhythm Respiratory/Chest: chest wall non-tender, lungs clear, normal breath sounds Abdomen: normal bowel sounds, non tender, soft Extremities: normal inspection Edema: no edema noted Arm (L), no edema noted Arm (R), no edema noted Leg (L), no edema noted Leg (R), no edema noted Pedal (L), no edema noted Pedal (R), no edema noted Generalized Neurologic: responsive, motor weakness Skin: normal pigmentation, warm/dry Elvis Luke DO Jan 16, 2019 07:47
--- NOTE | 2019-01-16 07:52 | NUR ---
NURSE NOTES: Patient awake, alert x4; on room air, no sing of distress and shortness of breath; IV Left For-Arm 22G D51/2NS W/Kcl 20 mEq running at 75cc; Right For-Arm 22G Zosyn is running; Purick in place; Biliary drainage on the Right Mid Abdomen; side rails up x2, breaks engaged, bed at lowest position; Sputum specimen needs to be collected; patient and RT aware; call light within reach; will keep monitoring.
[2019-01-16 08:00] VITALS: BP 113/79
[2019-01-16 08:08] LABS: ANION GAP 8 mmol/L (5-15); BLOOD UREA NITROGEN 5 mg/dL (7-18); CALCIUM 8.3 MG/DL (8.5-10.1); CARBON DIOXIDE 28 MMOL/L (21-32); CHLORIDE 98 MMOL/L (98-107); CREATININE 0.4 MG/DL (0.55-1.30); SODIUM 134 MMOL/L (136-145)
[2019-01-16] MEDS: Docusate 100mg cap ORAL SCH ×2 (08:21→17:33)
[2019-01-16] MEDS: Azithromycin 250mg tab ORAL SCH (08:21)
[2019-01-16] MEDS: Oseltamivir 75mg cap ORAL SCH ×2 (08:21→20:48)
[2019-01-16] MEDS: Pantoprazole Inj IVP SCH (08:21)
--- NOTE | 2019-01-16 10:56 | General Progress Note ---
Assessment/Plan Status: unchanged Assessment/Plan: (1) Pancreatic cancer ICD Codes: C25.9 - Malignant neoplasm of pancreas, unspecified SNOMED: 951304174 (2) Biliary drain displacement ICD Codes: T85.520A - Displacement of bile duct prosthesis, initial encounter SNOMED: 867730285 (3) Abdominal pain ICD Codes: R10.9 - Unspecified abdominal pain SNOMED: 14161791 Status: unchanged Status Narrative Discussed with Dr. Rocha Assessment/Plan Abdominal pelvis CT reviewed 1. Appropriately positioned percutaneous left biliary drain with mild intrahepatic biliary ductal dilatation. 2. Ill-defined pancreatic head/proximal body mass, likely corresponding to stated history of pancreatic neoplasm. Please note evaluation of size and vascular involvement of pancreatic masses is incomplete prior examinations and without multiphasic pancreatic protocol. 3. 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 SMV confluence is not visualized. 4. Color wall thickening with pericholecystic fluid; in the absence of distended gallbladder, these findings are critical for acute pancreatitis and clinical correlation is recommended. No plans for GI procedures at this time. Symptomatic treatment surgical recommendations, no interventions at this time Follow-up pain management recommendations ppi Trend LFTs advance diet as tolerated We will follow-up Subjective ROS Limited/Unobtainable: Yes Allergies: Coded Allergies: No Known Allergies (Unverified , 01/12/19) Subjective constipated Objective Last 24 Hour Vital Signs Date Time Temp Pulse Resp B/P (MAP) Pulse Ox O2 Delivery O2 Flow Rate FiO2 01/16/19 08:53 98.1 01/16/19 08:00 98.1 89 18 113/79 (90) 95 01/16/19 04:00 96.7 83 19 118/68 (85) 96 01/16/19 00:00 96.9 89 19 129/73 (91) 98 01/15/19 21:00 Nasal Cannula 2.0 01/15/19 20:00 96.3 90 19 125/70 (88) 96 01/15/19 16:00 98.0 82 18 126/70 (88) 97 01/15/19 12:00 98.4 85 18 126/75 (92) 96 Intake and Output 01/15/19 01/16/19 19:00 07:00 Intake Total 1829.916 ml 1794.916 ml Output Total 650 ml Balance 1829.916 ml 1144.916 ml Intake Oral 0 ml IV Total 1029.916 ml 994.916 ml Other 800 ml 800 ml Drainage Total 450 ml Other 200 ml # Voids 2 Laboratory Tests 01/15/19 12:56: Urine Legionella Antigen [Pending] 01/16/19 06:40: White Blood Count 22.0H, Red Blood Count 3.71L, Hemoglobin 11.9L, Hematocrit 34.4L, Mean Corpuscular Volume 93, Mean Corpuscular Hemoglobin 32.2H, Mean Corpuscular Hemoglobin Concent 34.7, Red Cell Distribution Width 12.7, Platelet Count 268, Mean Platelet Volume 6.7, Neutrophils (%) (Auto) , Lymphocytes (%) ( Auto) , Monocytes (%) (Auto) , Eosinophils (%) (Auto) , Basophils (%) (Auto) , Neutrophils % (Manual) [Pending], Lymphocytes % (Manual) [Pending], Platelet Estimate [Pending], Platelet Morphology [Pending], Sodium Level 134L, Potassium Level 3.0L, Chloride Level 98, Carbon Dioxide Level 28, Anion Gap 8, Blood Urea Nitrogen 5L, Creatinine 0.4L, Estimat Glomerular Filtration Rate > 60, Glucose Level 114H, Calcium Level 8.3L Height (Feet): 5 Height (Inches): 3.00 Weight (Pounds): 132 Indra Rocha MD Jan 16, 2019 10:56
[2019-01-16] MEDS ORDERED: HYDROmorphone 1mg/ml Carpuject IVP PRN (11:15)
--- NOTE | 2019-01-16 11:16 | General Progress Note ---
Assessment/Plan Assessment/Plan: (1) Intractable abdominal pain (2) Pancreatic cancer We will continue the Dilaudid and start Fentanyl patch D/w Dr. Gonzales and he concurred. Subjective Date patient seen: Jan 16, 2019 Time patient seen: 10:30 - am Allergies: Coded Allergies: No Known Allergies (Unverified , 01/12/19) Subjective REVIEW OF SYSTEMS: Denies rash, fever, chills, sweating, dizziness, drowsiness, blurred vision, sore throat, change in weight. No shortness of breath or chest pain. No bowel or bladder incontinence. She is complaining of abdominal pain. SUBJECTIVE: Patient is in bed and reports that she continues to have severe pain and has used 12 doses of the Dilaudid. The Fentanyl patch was not started and I d/w pharmacists to have it started. D/w patient she seem to understand. No new complaints at his time. Objective Last 24 Hour Vital Signs Date Time Temp Pulse Resp B/P (MAP) Pulse Ox O2 Delivery O2 Flow Rate FiO2 01/16/19 08:53 98.1 01/16/19 08:00 98.1 89 18 113/79 (90) 95 01/16/19 04:00 96.7 83 19 118/68 (85) 96 01/16/19 00:00 96.9 89 19 129/73 (91) 98 01/15/19 21:00 Nasal Cannula 2.0 01/15/19 20:00 96.3 90 19 125/70 (88) 96 01/15/19 16:00 98.0 82 18 126/70 (88) 97 01/15/19 12:00 98.4 85 18 126/75 (92) 96 Intake and Output 01/15/19 01/16/19 19:00 07:00 Intake Total 1829.916 ml 1869.916 ml Output Total 650 ml Balance 1829.916 ml 1219.916 ml Intake Oral 0 ml IV Total 1029.916 ml 1069.916 ml Other 800 ml 800 ml Drainage Total 450 ml Other 200 ml # Voids 2 Laboratory Tests 01/15/19 12:56: Urine Legionella Antigen [Pending] 01/16/19 06:40: White Blood Count 22.0H, Red Blood Count 3.71L, Hemoglobin 11.9L, Hematocrit 34.4L, Mean Corpuscular Volume 93, Mean Corpuscular Hemoglobin 32.2H, Mean Corpuscular Hemoglobin Concent 34.7, Red Cell Distribution Width 12.7, Platelet Count 268, Mean Platelet Volume 6.7, Neutrophils (%) (Auto) , Lymphocytes (%) ( Auto) , Monocytes (%) (Auto) , Eosinophils (%) (Auto) , Basophils (%) (Auto) , Neutrophils % (Manual) [Pending], Lymphocytes % (Manual) [Pending], Platelet Estimate [Pending], Platelet Morphology [Pending], Sodium Level 134L, Potassium Level 3.0L, Chloride Level 98, Carbon Dioxide Level 28, Anion Gap 8, Blood Urea Nitrogen 5L, Creatinine 0.4L, Estimat Glomerular Filtration Rate > 60, Glucose Level 114H, Calcium Level 8.3L Height (Feet): 5 Height (Inches): 3.00 Weight (Pounds): 132 Objective GENERAL: Alert, awake, and oriented. LUNGS: Clear bilaterally. HEART: S1, S2 regular. ABDOMEN: Tenderness to palpation with biliary stent noted. BACK: Range of motion is decreased in flexion, extension. EXTREMITIES: No cyanosis. No clubbing. No edema. NEURO: No changes. Doug Reid Jan 16, 2019 11:16
[2019-01-16 12:00] VITALS: BP 123/85
[2019-01-16] MEDS ORDERED: Naloxone 0.4mg/ml Inj IV PRN (12:00)
[2019-01-16] MEDS: Vancomycin 1gm in D5W 275ml IVPB SCH ×2 (12:16→23:59)
--- NOTE | 2019-01-16 12:28 | NUR ---
NURSE NOTES: Fentalyn Patch on the Upper Right Arm; Vitals taken before patch place, T 97.2 P 94 BP 147/92 R 18; Will keep monitoring.
--- NOTE | 2019-01-16 13:11 | Surgery Progress Note ---
Surgery Progress Note Subjective Additional Comments No acute events. Resting comfortably. No nausea vomiting fever chills. Labs noted. Exam stable. Objective Last 24 Hour Vital Signs Date Time Temp Pulse Resp B/P (MAP) Pulse Ox O2 Delivery O2 Flow Rate FiO2 01/16/19 12:00 97.4 89 19 123/85 (98) 97 01/16/19 09:00 Nasal Cannula 2.0 01/16/19 08:53 98.1 01/16/19 08:00 98.1 89 18 113/79 (90) 95 01/16/19 04:00 96.7 83 19 118/68 (85) 96 01/16/19 00:00 96.9 89 19 129/73 (91) 98 01/15/19 21:00 Nasal Cannula 2.0 01/15/19 20:00 96.3 90 19 125/70 (88) 96 01/15/19 16:00 98.0 82 18 126/70 (88) 97 I&O Intake and Output 01/15/19 01/16/19 19:00 07:00 Intake Total 1829.916 ml 1869.916 ml Output Total 650 ml Balance 1829.916 ml 1219.916 ml Intake Oral 0 ml IV Total 1029.916 ml 1069.916 ml Other 800 ml 800 ml Drainage Total 450 ml Other 200 ml # Voids 2 Cardiovascular: RSR Respiratory: clear Abdomen: soft, flat, non-tender, present bowel sounds Extremities: no edema, no tenderness, no cyanosis Laboratory Tests Test 01/16/19 06:40 White Blood Count 22.0 K/UL (4.8-10.8) H Red Blood Count 3.71 M/UL (4.20-5.40) L Hemoglobin 11.9 G/DL (12.0-16.0) L Hematocrit 34.4 % (37.0-47.0) L Mean Corpuscular Volume 93 FL (80-99) Mean Corpuscular Hemoglobin 32.2 PG (27.0-31.0) H Mean Corpuscular Hemoglobin Concent 34.7 G/DL (32.0-36.0) Red Cell Distribution Width 12.7 % (11.6-14.8) Platelet Count 268 K/UL (150-450) Mean Platelet Volume 6.7 FL (6.5-10.1) Neutrophils (%) (Auto) % (45.0-75.0) Lymphocytes (%) (Auto) % (20.0-45.0) Monocytes (%) (Auto) % (1.0-10.0) Eosinophils (%) (Auto) % (0.0-3.0) Basophils (%) (Auto) % (0.0-2.0) Differential Total Cells Counted 100 Neutrophils % (Manual) 92 % (45-75) H Lymphocytes % (Manual) 3 % (20-45) L Monocytes % (Manual) 4 % (1-10) Eosinophils % (Manual) 0 % (0-3) Basophils % (Manual) 0 % (0-2) Band Neutrophils 1 % (0-8) Platelet Estimate Adequate Platelet Morphology Normal Red Blood Cell Morphology Normal Sodium Level 134 MMOL/L (136-145) L Potassium Level 3.0 MMOL/L (3.5-5.1) L Chloride Level 98 MMOL/L (98-107) Carbon Dioxide Level 28 MMOL/L (21-32) Anion Gap 8 mmol/L (5-15) Blood Urea Nitrogen 5 mg/dL (7-18) L Creatinine 0.4 MG/DL (0.55-1.30) L Estimat Glomerular Filtration Rate > 60 mL/min (>60) Glucose Level 114 MG/DL (74-106) H Calcium Level 8.3 MG/DL (8.5-10.1) L Plan Problems: (1) Abdominal pain Assessment & Plan: 63-year-old female patient with history of recently diagnosed pancreatic cancer in November 2018 [place] [facility] [place] complaint of abdominal pain for approximately 1 hour. Patient is status post a biliary drain placement at [facility] [place] approximately 1 week ago. She reported that she had a first treatment of chemotherapy this past Thursday. The patient denied any nausea vomiting, denies any constipation or diarrhea. She states her pain medication was unable to relieve her pain. no fever or chills. labs as below. C Tnoted. surgery called to assist with care and management. tube checked okay for diet leave tube in place with cap stable otherwise from surgical standpoint no acute surgical intervention planned iv fluids trend labs will monitor and follow with exam thank you (2) Biliary drain displacement Assessment & Plan: Daughter was able to inform me with a lot of history. Seems patient unresectable initially and attempted biliary drain placed endoscopically but unsuccessful. A external biliary drain was placed by radiology. Would patient was getting her Port-A-Cath placed a another radiologist felt he could place a internal/external biliary drain and he was able to successfully place a internal/external biliary drain. Had the trade Since. Fell off and she has been without it to drainage recently. In evaluating the trade she has some bilious output from the drain and on imaging drain looks to be appropriately placed. Labs reviewed stable. Will plan on cap the drain as it is internal/external it should drain internally IMPRESSION: 1. Appropriately positioned percutaneous left biliary drain with mild intrahepatic biliary ductal dilatation. 2. Ill-defined pancreatic head/proximal body mass, likely corresponding to stated history of pancreatic neoplasm. Please note evaluation of size and vascular involvement of pancreatic masses is incomplete prior examinations and without multiphasic pancreatic protocol. 3. 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 SMV confluence is not visualized. 4. Color wall thickening with pericholecystic fluid; in the absence of distended gallbladder, these findings are critical for acute pancreatitis and clinical correlation is recommended. (3) Pancreatic cancer Assessment & Plan: Pancreatic cancer, non-resectable, based on patient's info. Had a Abdominal pelvis CT reviewed 1. Appropriately positioned percutaneous left biliary drain with mild intrahepatic biliary ductal dilatation. 2. Ill- defined pancreatic head/proximal body mass, likely corresponding to stated history of pancreatic neoplasm. Please note evaluation of size and vascular involvement of pancreatic masses is incomplete prior examinations and without multiphasic pancreatic protocol. 3. 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 She has already started rx Jim Gates Jan 16, 2019 13:11
--- NOTE | 2019-01-16 14:43 | NUR ---
NURSE NOTES: Patient is asking for pain medication; Fentanyl patch placed around 1217 and patient had Dilaudid 1 MG for breath through pain; I called and spoke with Quintin pharmacist; Quintin said OK to give; Charge nurse, David is aware; will keep monitoring.
[2019-01-16] MEDS: Lactulose 10gm/15ml UDC ORAL SCH ×2 (14:49→17:33)
--- NOTE | 2019-01-16 15:09 | Consultation ---
Consult Note Consult Note asked to eval for management of abnormal electrolyte by Dr Luke Data reviewed meds reviewed patient examined day 4 hospitalization . Assessment/Plan HypoKalemia HypoNatremia Abdominal pain. Nausea. Vomiting. UTI. Pancreatic cancer. Biliary drain displacement Malnutrition. Anemia IV K check labs change IV to isotonic solution monitor Kapil Wong MD Jan 16, 2019 15:09
--- NOTE | 2019-01-16 15:48 | NUR ---
PT note Attempted to see patient for treatment but patient requested to defer PT at this time; c/o not feeling well.
[2019-01-16 16:00] VITALS: BP 143/92
--- NOTE | 2019-01-16 16:30 | NUR ---
NURSE NOTES: Patient stated that the Kcl IV burning her, reduced the rate and tried to run it; however patient doesn't want to be connected; patient stated that I don't want to be connected with any IV line for a couple of hours; Charge nurse, David quintanilla harmon; will keep monitoring.
[2019-01-16] MEDS: D5NS w/KCl 40mEq 1000ml 1,000 ML IV SCH (17:33)
--- NOTE | 2019-01-16 17:45 | NUR ---
NURSE NOTES: Patient vomited yellowish color emesis; Zofran not due yet; will keep monitoring.
--- NOTE | 2019-01-16 19:37 | NUR ---
HAND-OFF: Report given to CAITIE Higgins.
--- NOTE | 2019-01-16 19:45 | NUR ---
NURSE NOTES: Pt received in bed, no c/o pain at the moment, pt still needs 3 1/2 bags of Potassium to be given, she refused with the AM nurse, will explain again the benefits of the medication, will continue to monitor.
[2019-01-16 20:00] VITALS: BP 150/96
[2019-01-16] MEDS: Miralax 17gm pkt ORAL SCH ×2 (20:48→21:00)
--- NOTE | 2019-01-16 20:48 | NUR ---
NURSE NOTES: Pt refused Miralax, stating she already had 2 bowel movements and did not want to take the Miralax.
--- NOTE | 2019-01-16 22:02 | NUR ---
NURSE NOTES: 1st bag of potassium complete, running 2nd bag of potassium without refusal from patient.
--- NOTE | 2019-01-16 22:40 | NUR ---
NURSE NOTES: Left voicemail for Dr. Turcios, regarding pt cooperating and receiving 2 bags of potassium after refusing during the day shift. Now refusing to receive the last 2 bags of potassium and Pt receiving IV fluids D5NSw/40KCL.
[2019-01-17] VITALS: BP 155/87
[2019-01-17] MEDS: Piperacillin/Tazobactam 3.375 GM in NS 110 ML IVPB SCH ×3 (01:00→19:19)
--- NOTE | 2019-01-17 01:05 | NUR ---
NURSE NOTES: Pt refusing to be connected to the IV fluids and antibiotics, has 30 minutes remaining of Vancomycin and wants to be disconnected when it is done.
[2019-01-17 04:00] VITALS: BP 140/71
[2019-01-17] MEDS: HYDROmorphone 1mg/ml Carpuject IVP PRN ×6 (04:22→22:36)
[2019-01-17 07:34] LABS: HEMATOCRIT 37.4 % (37.0-47.0); HEMOGLOBIN 12.9 G/DL (12.0-16.0); MEAN CORPUSCULAR VOLUME 93 FL (80-99); PLATELET COUNT 290 K/UL (150-450); RED BLOOD COUNT 4.04 M/UL (4.20-5.40); RED CELL DISTRIBUTION WIDTH 12.5 % (11.6-14.8); WHITE BLOOD COUNT 20.1 K/UL (4.8-10.8)
--- NOTE | 2019-01-17 07:43 | NUR ---
HAND-OFF: Report given to CAITIE Smart. endorsed pt refusing remaining Potassium bags and left voicemail for Dr. Turcios
[2019-01-17 07:53] LABS: % IRON SATURATION 11 % (15-50); IRON 14 ug/dL (50-175); TOTAL IRON BINDING CAPACITY 129 ug/dL (250-450)
[2019-01-17 08:00] VITALS: BP 171/104
--- NOTE | 2019-01-17 08:00 | General Progress Note ---
Assessment/Plan Problem List: (1) SOB (shortness of breath) ICD Codes: R06.02 - Shortness of breath SNOMED: 580079287 (2) Nausea & vomiting ICD Codes: R11.2 - Nausea with vomiting, unspecified SNOMED: 23251318 (3) Malnutrition ICD Codes: E46 - Unspecified protein-calorie malnutrition SNOMED: 99829918 (4) UTI (urinary tract infection) ICD Codes: N39.0 - Urinary tract infection, site not specified SNOMED: 82604523 (5) Abdominal pain ICD Codes: R10.9 - Unspecified abdominal pain SNOMED: 95073783 (6) Biliary drain displacement ICD Codes: T85.520A - Displacement of bile duct prosthesis, initial encounter SNOMED: 241526441 (7) Pancreatic cancer ICD Codes: C25.9 - Malignant neoplasm of pancreas, unspecified SNOMED: 941807382 Status: unchanged Assessment/Plan: pt diet pain control abx cbc bmp am Subjective Constitutional: Reports: weakness Allergies: Coded Allergies: No Known Allergies (Unverified , 01/12/19) All Systems: reviewed and negative except above Subjective o2nc sl nausea abd pain Objective Last 24 Hour Vital Signs Date Time Temp Pulse Resp B/P (MAP) Pulse Ox O2 Delivery O2 Flow Rate FiO2 01/17/19 04:00 98.0 80 19 140/71 (94) 96 01/17/19 00:00 98.2 98 19 155/87 (109) 96 01/16/19 21:00 Nasal Cannula 2.0 01/16/19 20:00 98.0 102 19 150/96 (114) 96 01/16/19 16:00 98.8 86 17 143/92 (109) 97 01/16/19 15:20 97.4 01/16/19 12:47 97.4 01/16/19 12:00 97.4 89 19 123/85 (98) 97 01/16/19 09:00 Nasal Cannula 2.0 01/16/19 08:53 98.1 01/16/19 08:00 98.1 89 18 113/79 (90) 95 Intake and Output 01/16/19 01/17/19 19:00 07:00 Intake Total 560.0 ml 120 ml Balance 560.0 ml 120 ml Intake Oral 120 ml IV Total 560.0 ml # Bowel Movements 1 Laboratory Tests 01/17/19 06:12: White Blood Count 20.1H, Red Blood Count 4.04L, Hemoglobin 12.9, Hematocrit 37.4 , Mean Corpuscular Volume 93, Mean Corpuscular Hemoglobin 31.9H, Mean Corpuscular Hemoglobin Concent 34.4, Red Cell Distribution Width 12.5, Platelet Count 290, Mean Platelet Volume 7.0, Neutrophils (%) (Auto) , Lymphocytes (%) ( Auto) , Monocytes (%) (Auto) , Eosinophils (%) (Auto) , Basophils (%) (Auto) , Neutrophils % (Manual) [Pending], Lymphocytes % (Manual) [Pending], Platelet Estimate [Pending], Platelet Morphology [Pending], Sodium Level [Pending], Potassium Level [Pending], Chloride Level [Pending], Carbon Dioxide Level [ Pending], Blood Urea Nitrogen [Pending], Creatinine [Pending], Estimat Glomerular Filtration Rate [Pending], Glucose Level [Pending], Uric Acid [ Pending], Calcium Level [Pending], Phosphorus Level [Pending], Magnesium Level [ Pending], Iron Level 14L, Total Iron Binding Capacity 129L, Percent Iron Saturation 11L, Unsaturated Iron Binding 115, Ferritin [Pending], Total Bilirubin [Pending], Aspartate Amino Transf (AST/SGOT) [Pending], Alanine Aminotransferase (ALT/SGPT) [Pending], Alkaline Phosphatase [Pending], C- Reactive Protein, Quantitative [Pending], Pro-B-Type Natriuretic Peptide [ Pending], Total Protein [Pending], Albumin [Pending], Globulin [Pending], Triglycerides Level [Pending], Cholesterol Level [Pending], LDL Cholesterol [ Pending], HDL Cholesterol [Pending], Cholesterol/HDL Ratio [Pending], Vitamin B12 Level [Pending], Folate [Pending], Thyroid Stimulating Hormone (TSH) [ Pending] Height (Feet): 5 Height (Inches): 3.00 Weight (Pounds): 132 General Appearance: lethargic EENT: normal ENT inspection Neck: normal alignment Cardiovascular: normal peripheral pulses, normal rate, regular rhythm Respiratory/Chest: chest wall non-tender, lungs clear, normal breath sounds Abdomen: normal bowel sounds, non tender, soft Extremities: normal inspection Edema: no edema noted Arm (L), no edema noted Arm (R), no edema noted Leg (L), no edema noted Leg (R), no edema noted Pedal (L), no edema noted Pedal (R), no edema noted Generalized Neurologic: motor weakness Skin: normal pigmentation, warm/dry Elvis Luke DO Jan 17, 2019 07:59
--- NOTE | 2019-01-17 08:00 | NUR ---
NURSE NOTES: Patient is awake,alert and oriented,respirations unlabored.Patient .Patient has biliary drain in place.not to drainage.patient breakfast at bedside patient not ready to eat at this time.Will restart IV fluids.call light within reach.
[2019-01-17 08:21] LABS: ALANINE AMINOTRANSFERASE 23 U/L (12-78); ALBUMIN 1.7 G/DL (3.4-5.0); ALBUMIN/GLOBULIN RATIO 0.4 (1.0-2.7); ALKALINE PHOSPHATASE 150 U/L (46-116); ANION GAP 12 mmol/L (5-15); ASPARTATE AMINO TRANSFERASE 23 U/L (15-37); BLOOD UREA NITROGEN 9 mg/dL (7-18); CALCIUM 8.5 MG/DL (8.5-10.1); CARBON DIOXIDE 26 MMOL/L (21-32); CHLORIDE 96 MMOL/L (98-107); CHOLESTEROL 152 MG/DL (< 200); CREATININE 0.7 MG/DL (0.55-1.30); FERRITIN 860 NG/ML (8-388); HDL CHOLESTEROL 13 MG/DL (40-60); POTASSIUM 3.4 MMOL/L (3.5-5.1); SODIUM 134 MMOL/L (136-145); TRIGLYCERIDES 153 MG/DL (30-150)
--- NOTE | 2019-01-17 08:51 | General Progress Note ---
Assessment/Plan Assessment/Plan: (1) Intractable abdominal pain (2) Pancreatic cancer We will continue the Dilaudid and Fentanyl patch D/w Dr. Gonzales and he concurred. Subjective Date patient seen: Jan 17, 2019 Time patient seen: 08:00 - am Allergies: Coded Allergies: No Known Allergies (Unverified , 01/12/19) Subjective REVIEW OF SYSTEMS: Denies rash, fever, chills, sweating, dizziness, drowsiness, blurred vision, sore throat, change in weight. No shortness of breath or chest pain. No bowel or bladder incontinence. She is complaining of abdominal pain. SUBJECTIVE: Patient is in bed started on Fentanyl patch and has used the Dilaudid for breakthrough. Waiting to be started on Diet so we can transition to tabs from IV. She seems to understand. Objective Last 24 Hour Vital Signs Date Time Temp Pulse Resp B/P (MAP) Pulse Ox O2 Delivery O2 Flow Rate FiO2 01/17/19 04:00 98.0 80 19 140/71 (94) 96 01/17/19 00:00 98.2 98 19 155/87 (109) 96 01/16/19 21:00 Nasal Cannula 2.0 01/16/19 20:00 98.0 102 19 150/96 (114) 96 01/16/19 16:00 98.8 86 17 143/92 (109) 97 01/16/19 15:20 97.4 01/16/19 12:47 97.4 01/16/19 12:00 97.4 89 19 123/85 (98) 97 01/16/19 09:00 Nasal Cannula 2.0 01/16/19 08:53 98.1 Intake and Output 01/16/19 01/17/19 19:00 07:00 Intake Total 560.0 ml 120 ml Balance 560.0 ml 120 ml Intake Oral 120 ml IV Total 560.0 ml # Bowel Movements 1 Laboratory Tests 01/17/19 06:12: White Blood Count 20.1H, Red Blood Count 4.04L, Hemoglobin 12.9, Hematocrit 37.4 , Mean Corpuscular Volume 93, Mean Corpuscular Hemoglobin 31.9H, Mean Corpuscular Hemoglobin Concent 34.4, Red Cell Distribution Width 12.5, Platelet Count 290, Mean Platelet Volume 7.0, Neutrophils (%) (Auto) , Lymphocytes (%) ( Auto) , Monocytes (%) (Auto) , Eosinophils (%) (Auto) , Basophils (%) (Auto) , Neutrophils % (Manual) [Pending], Lymphocytes % (Manual) [Pending], Platelet Estimate [Pending], Platelet Morphology [Pending], Sodium Level 134L, Potassium Level 3.4L, Chloride Level 96L, Carbon Dioxide Level 26, Anion Gap 12, Blood Urea Nitrogen 9, Creatinine 0.7#, Estimat Glomerular Filtration Rate > 60, Glucose Level 111H, Uric Acid 3.0, Calcium Level 8.5, Phosphorus Level 4.0, Magnesium Level 2.1, Iron Level 14L, Total Iron Binding Capacity 129L, Percent Iron Saturation 11L, Unsaturated Iron Binding 115, Ferritin 860H, Total Bilirubin 1.0, Aspartate Amino Transf (AST/SGOT) 23, Alanine Aminotransferase ( ALT/SGPT) 23, Alkaline Phosphatase 150H, C-Reactive Protein, Quantitative 21.0H , Pro-B-Type Natriuretic Peptide 921H, Total Protein 5.7L, Albumin 1.7L, Globulin 4.0, Albumin/Globulin Ratio 0.4L, Triglycerides Level 153H, Cholesterol Level 152, LDL Cholesterol 109H, HDL Cholesterol 13L, Cholesterol/ HDL Ratio 11.7H, Vitamin B12 Level 715, Folate 4.6L, Thyroid Stimulating Hormone (TSH) 1.660 Height (Feet): 5 Height (Inches): 3.00 Weight (Pounds): 132 Objective GENERAL: Alert, awake, and oriented. LUNGS: Clear bilaterally. HEART: S1, S2 regular. ABDOMEN: Tenderness to palpation with biliary stent noted. BACK: Range of motion is decreased in flexion, extension. EXTREMITIES: No cyanosis. No clubbing. No edema. NEURO: No changes. Doug Reid Jan 17, 2019 08:51
[2019-01-17] MEDS: Lactulose 10gm/15ml UDC ORAL SCH ×3 (09:00→18:00)
[2019-01-17] MEDS: Azithromycin 250mg tab ORAL SCH (09:38)
[2019-01-17] MEDS: Oseltamivir 75mg cap ORAL SCH (09:38)
[2019-01-17] MEDS: Docusate 100mg cap ORAL SCH ×2 (09:39→19:19)
[2019-01-17] MEDS: Pantoprazole Inj IVP SCH (09:39)
--- NOTE | 2019-01-17 11:02 | Nephrology Progress Note ---
Assessment/Plan Problem List: (1) Electrolyte abnormality (2) Pancreatic cancer (3) Biliary drain displacement (4) Abdominal pain (5) Malnutrition Assessment HypoKalemia HypoNatremia Abdominal pain. Nausea. Vomiting. UTI. Pancreatic cancer. Biliary drain displacement Malnutrition. Anemia Plan IV K , or PO if IV not tolerated and valenzuela the site check labs change IV to isotonic solution monitor lytes start PO Folic acid Subjective ROS Limited/Unobtainable: No Constitutional: Reports: malaise, weakness Objective Objective Last 24 Hour Vital Signs Date Time Temp Pulse Resp B/P (MAP) Pulse Ox O2 Delivery O2 Flow Rate FiO2 01/17/19 04:00 98.0 80 19 140/71 (94) 96 01/17/19 00:00 98.2 98 19 155/87 (109) 96 01/16/19 21:00 Nasal Cannula 2.0 01/16/19 20:00 98.0 102 19 150/96 (114) 96 01/16/19 16:00 98.8 86 17 143/92 (109) 97 01/16/19 15:20 97.4 01/16/19 12:47 97.4 01/16/19 12:00 97.4 89 19 123/85 (98) 97 Intake and Output 01/16/19 01/17/19 19:00 07:00 Intake Total 560.0 ml 120 ml Balance 560.0 ml 120 ml Intake Oral 120 ml IV Total 560.0 ml # Bowel Movements 1 Laboratory Tests 01/17/19 06:12: White Blood Count 20.1H, Red Blood Count 4.04L, Hemoglobin 12.9, Hematocrit 37.4 , Mean Corpuscular Volume 93, Mean Corpuscular Hemoglobin 31.9H, Mean Corpuscular Hemoglobin Concent 34.4, Red Cell Distribution Width 12.5, Platelet Count 290, Mean Platelet Volume 7.0, Neutrophils (%) (Auto) , Lymphocytes (%) ( Auto) , Monocytes (%) (Auto) , Eosinophils (%) (Auto) , Basophils (%) (Auto) , Differential Total Cells Counted 100, Neutrophils % (Manual) 86H, Lymphocytes % (Manual) 6L, Monocytes % (Manual) 2, Eosinophils % (Manual) 0, Basophils % ( Manual) 0, Band Neutrophils 6, Platelet Estimate Adequate, Platelet Morphology Normal, Red Blood Cell Morphology Normal, Sodium Level 134L, Potassium Level 3.4L, Chloride Level 96L, Carbon Dioxide Level 26, Anion Gap 12, Blood Urea Nitrogen 9, Creatinine 0.7#, Estimat Glomerular Filtration Rate > 60, Glucose Level 111H, Uric Acid 3.0, Calcium Level 8.5, Phosphorus Level 4.0, Magnesium Level 2.1, Iron Level 14L, Total Iron Binding Capacity 129L, Percent Iron Saturation 11L, Unsaturated Iron Binding 115, Ferritin 860H, Total Bilirubin 1.0 , Aspartate Amino Transf (AST/SGOT) 23, Alanine Aminotransferase (ALT/SGPT) 23, Alkaline Phosphatase 150H, C-Reactive Protein, Quantitative 21.0H, Pro-B-Type Natriuretic Peptide 921H, Total Protein 5.7L, Albumin 1.7L, Globulin 4.0, Albumin/Globulin Ratio 0.4L, Triglycerides Level 153H, Cholesterol Level 152, LDL Cholesterol 109H, HDL Cholesterol 13L, Cholesterol/HDL Ratio 11.7H, Vitamin B12 Level 715, Folate 4.6L, Thyroid Stimulating Hormone (TSH) 1.660 Height (Feet): 5 Height (Inches): 3.00 Weight (Pounds): 132 General Appearance: mild distress Respiratory/Chest: decreased breath sounds Abdomen: distended Kapil Turcios MD Jan 17, 2019 11:02
[2019-01-17 12:00] VITALS: BP 151/62
[2019-01-17] MEDS: D5NS w/KCl 40mEq 1000ml 1,000 ML IV SCH (12:06)
--- NOTE | 2019-01-17 13:20 | CDS Physician Query ---
Clarification is required for compliance, coding accuracy, and to reflect severity of illness for this patient Dear Dr. Elvis Luke Date: 01/17/2019 Company Driver/CDS Name: Elodia Garcia Clinical Documentation states: ID note 01/14:63 y/o F with hx of tobacco abuse, recently diagnosed pancreatic CA 11/2018 and s/p biliary drain 1 week ago at [facility] [place] presented to eD on 01/12 with 1hr onset of abd pain. She received her first treatment of chemotherapy 4 days ago (01/10/19)...Sepsis 01/15 ID note: Sepsis- r/o bacteremia...PNA, CAP -CXR: . Patchy consolidation in the right lower lung, concerning for pneumonia. Mild pulmonary vascular congestion. Vitals on admission: Tmax 102.0, NM 118, RR 27 WBC on 01/13: 12.7 Clarification is needed for one (or more) of the following conditions in order to accurately assign the "present on admission' indicator. Please choose the answer that best indicates whether the associated condition was present at the time of the order for inpatient admission. Thank you. Was the Sepsis Present on admission? [] YES [] NO [] Clinically Undeterminable Physician signature Date Please also document in your Progress Notes and/or Discharge Summary and indicate if the condition was present on admission. MTDD
--- NOTE | 2019-01-17 13:22 | GI Progress Note ---
Assessment/Plan Problems: (1) Pancreatic cancer ICD Codes: C25.9 - Malignant neoplasm of pancreas, unspecified SNOMED: 973346721 (2) Biliary drain displacement ICD Codes: T85.520A - Displacement of bile duct prosthesis, initial encounter SNOMED: 375706130 (3) Abdominal pain ICD Codes: R10.9 - Unspecified abdominal pain SNOMED: 47879736 Status: stable Status Narrative Discussed with Dr. Rocha. Assessment/Plan Abdominal pelvis CT reviewed 1. Appropriately positioned percutaneous left biliary drain with mild intrahepatic biliary ductal dilatation. 2. Ill-defined pancreatic head/proximal body mass, likely corresponding to stated history of pancreatic neoplasm. Please note evaluation of size and vascular involvement of pancreatic masses is incomplete prior examinations and without multiphasic pancreatic protocol. 3. 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 SMV confluence is not visualized. 4. Color wall thickening with pericholecystic fluid; in the absence of distended gallbladder, these findings are critical for acute pancreatitis and clinical correlation is recommended. No plans for GI procedures at this time. Symptomatic treatment surgical recommendations, no interventions at this time Follow-up pain management recommendations ppi Trend LFTs advance diet as tolerated We will follow-up The patient was seen and examined at bedside and all new and available data was reviewed in the patients chart. I agree with the above findings, impression and plan. (Patient seen earlier today. Signature stamp does not reflect patient encounter time.). - Indra Rocha MD Subjective Subjective Patient still complains of abdominal pain, but states her pain is improved with increased dosage of medication Objective Last 24 Hour Vital Signs Date Time Temp Pulse Resp B/P (MAP) Pulse Ox O2 Delivery O2 Flow Rate FiO2 01/17/19 08:00 98.4 93 19 171/104 (126) 96 01/17/19 04:00 98.0 80 19 140/71 (94) 96 01/17/19 00:00 98.2 98 19 155/87 (109) 96 01/16/19 21:00 Nasal Cannula 2.0 01/16/19 20:00 98.0 102 19 150/96 (114) 96 01/16/19 16:00 98.8 86 17 143/92 (109) 97 01/16/19 15:20 97.4 Intake and Output 01/16/19 01/17/19 19:00 07:00 Intake Total 560.0 ml 120 ml Balance 560.0 ml 120 ml Intake Oral 120 ml IV Total 560.0 ml # Bowel Movements 1 Laboratory Tests Test 01/17/19 06:12 White Blood Count 20.1 K/UL (4.8-10.8) H Red Blood Count 4.04 M/UL (4.20-5.40) L Hemoglobin 12.9 G/DL (12.0-16.0) Hematocrit 37.4 % (37.0-47.0) Mean Corpuscular Volume 93 FL (80-99) Mean Corpuscular Hemoglobin 31.9 PG (27.0-31.0) H Mean Corpuscular Hemoglobin Concent 34.4 G/DL (32.0-36.0) Red Cell Distribution Width 12.5 % (11.6-14.8) Platelet Count 290 K/UL (150-450) Mean Platelet Volume 7.0 FL (6.5-10.1) Neutrophils (%) (Auto) % (45.0-75.0) Lymphocytes (%) (Auto) % (20.0-45.0) Monocytes (%) (Auto) % (1.0-10.0) Eosinophils (%) (Auto) % (0.0-3.0) Basophils (%) (Auto) % (0.0-2.0) Differential Total Cells Counted 100 Neutrophils % (Manual) 86 % (45-75) H Lymphocytes % (Manual) 6 % (20-45) L Monocytes % (Manual) 2 % (1-10) Eosinophils % (Manual) 0 % (0-3) Basophils % (Manual) 0 % (0-2) Band Neutrophils 6 % (0-8) Platelet Estimate Adequate Platelet Morphology Normal Red Blood Cell Morphology Normal Sodium Level 134 MMOL/L (136-145) L Potassium Level 3.4 MMOL/L (3.5-5.1) L Chloride Level 96 MMOL/L (98-107) L Carbon Dioxide Level 26 MMOL/L (21-32) Anion Gap 12 mmol/L (5-15) Blood Urea Nitrogen 9 mg/dL (7-18) Creatinine 0.7 MG/DL (0.55-1.30) # Estimat Glomerular Filtration Rate > 60 mL/min (>60) Glucose Level 111 MG/DL (74-106) H Uric Acid 3.0 MG/DL (2.6-7.2) Calcium Level 8.5 MG/DL (8.5-10.1) Phosphorus Level 4.0 MG/DL (2.5-4.9) Magnesium Level 2.1 MG/DL (1.8-2.4) Iron Level 14 ug/dL (50-175) L Total Iron Binding Capacity 129 ug/dL (250-450) L Percent Iron Saturation 11 % (15-50) L Unsaturated Iron Binding 115 ug/dL (112-346) Ferritin 860 NG/ML (8-388) H Total Bilirubin 1.0 MG/DL (0.2-1.0) Aspartate Amino Transf (AST/SGOT) 23 U/L (15-37) Alanine Aminotransferase (ALT/SGPT) 23 U/L (12-78) Alkaline Phosphatase 150 U/L (46-116) H C-Reactive Protein, Quantitative 21.0 mg/dL (0.00-0.90) H Pro-B-Type Natriuretic Peptide 921 pg/mL (0-125) H Total Protein 5.7 G/DL (6.4-8.2) L Albumin 1.7 G/DL (3.4-5.0) L Globulin 4.0 g/dL Albumin/Globulin Ratio 0.4 (1.0-2.7) L Triglycerides Level 153 MG/DL (30-150) H Cholesterol Level 152 MG/DL (< 200) LDL Cholesterol 109 mg/dL (<100) H HDL Cholesterol 13 MG/DL (40-60) L Cholesterol/HDL Ratio 11.7 (3.3-4.4) H Vitamin B12 Level 715 PG/ML (193-986) Folate 4.6 NG/ML (8.6-58.9) L Thyroid Stimulating Hormone (TSH) 1.660 uiU/mL (0.358-3.740) Height (Feet): 5 Height (Inches): 3.00 Weight (Pounds): 132 General Appearance: WD/WN, no apparent distress, alert Cardiovascular: normal rate Respiratory/Chest: normal breath sounds, no respiratory distress Abdominal Exam: normal bowel sounds, non tender, soft Extremities: normal range of motion, non-tender Jeff Rueda [employer] Jan 17, 2019 13:22
[2019-01-17] MEDS: Vancomycin 1gm in D5W 275ml IVPB SCH (13:36)
--- NOTE | 2019-01-17 15:45 | Surgery Progress Note ---
Surgery Progress Note Subjective Additional Comments Patient seen and examined bedside. No acute events. Overall comfortable. Tolerating diet. No nausea vomiting fever chills. Labs okay. Drainage Stable with normal labs Objective Last 24 Hour Vital Signs Date Time Temp Pulse Resp B/P (MAP) Pulse Ox O2 Delivery O2 Flow Rate FiO2 01/17/19 12:00 97.8 70 17 151/62 (91) 96 01/17/19 09:00 Nasal Cannula 2.0 01/17/19 08:00 98.4 93 19 171/104 (126) 96 01/17/19 04:00 98.0 80 19 140/71 (94) 96 01/17/19 00:00 98.2 98 19 155/87 (109) 96 01/16/19 21:00 Nasal Cannula 2.0 01/16/19 20:00 98.0 102 19 150/96 (114) 96 01/16/19 16:00 98.8 86 17 143/92 (109) 97 I&O Intake and Output 01/16/19 01/17/19 19:00 07:00 Intake Total 560.0 ml 120 ml Balance 560.0 ml 120 ml Intake Oral 120 ml IV Total 560.0 ml # Bowel Movements 1 Dressing: dry Wound: clean Cardiovascular: RSR Respiratory: clear Abdomen: soft, flat, non-tender, present bowel sounds Extremities: no tenderness, no cyanosis Laboratory Tests Test 01/17/19 06:12 White Blood Count 20.1 K/UL (4.8-10.8) H Red Blood Count 4.04 M/UL (4.20-5.40) L Hemoglobin 12.9 G/DL (12.0-16.0) Hematocrit 37.4 % (37.0-47.0) Mean Corpuscular Volume 93 FL (80-99) Mean Corpuscular Hemoglobin 31.9 PG (27.0-31.0) H Mean Corpuscular Hemoglobin Concent 34.4 G/DL (32.0-36.0) Red Cell Distribution Width 12.5 % (11.6-14.8) Platelet Count 290 K/UL (150-450) Mean Platelet Volume 7.0 FL (6.5-10.1) Neutrophils (%) (Auto) % (45.0-75.0) Lymphocytes (%) (Auto) % (20.0-45.0) Monocytes (%) (Auto) % (1.0-10.0) Eosinophils (%) (Auto) % (0.0-3.0) Basophils (%) (Auto) % (0.0-2.0) Differential Total Cells Counted 100 Neutrophils % (Manual) 86 % (45-75) H Lymphocytes % (Manual) 6 % (20-45) L Monocytes % (Manual) 2 % (1-10) Eosinophils % (Manual) 0 % (0-3) Basophils % (Manual) 0 % (0-2) Band Neutrophils 6 % (0-8) Platelet Estimate Adequate Platelet Morphology Normal Red Blood Cell Morphology Normal Sodium Level 134 MMOL/L (136-145) L Potassium Level 3.4 MMOL/L (3.5-5.1) L Chloride Level 96 MMOL/L (98-107) L Carbon Dioxide Level 26 MMOL/L (21-32) Anion Gap 12 mmol/L (5-15) Blood Urea Nitrogen 9 mg/dL (7-18) Creatinine 0.7 MG/DL (0.55-1.30) # Estimat Glomerular Filtration Rate > 60 mL/min (>60) Glucose Level 111 MG/DL (74-106) H Uric Acid 3.0 MG/DL (2.6-7.2) Calcium Level 8.5 MG/DL (8.5-10.1) Phosphorus Level 4.0 MG/DL (2.5-4.9) Magnesium Level 2.1 MG/DL (1.8-2.4) Iron Level 14 ug/dL (50-175) L Total Iron Binding Capacity 129 ug/dL (250-450) L Percent Iron Saturation 11 % (15-50) L Unsaturated Iron Binding 115 ug/dL (112-346) Ferritin 860 NG/ML (8-388) H Total Bilirubin 1.0 MG/DL (0.2-1.0) Aspartate Amino Transf (AST/SGOT) 23 U/L (15-37) Alanine Aminotransferase (ALT/SGPT) 23 U/L (12-78) Alkaline Phosphatase 150 U/L (46-116) H C-Reactive Protein, Quantitative 21.0 mg/dL (0.00-0.90) H Pro-B-Type Natriuretic Peptide 921 pg/mL (0-125) H Total Protein 5.7 G/DL (6.4-8.2) L Albumin 1.7 G/DL (3.4-5.0) L Globulin 4.0 g/dL Albumin/Globulin Ratio 0.4 (1.0-2.7) L Triglycerides Level 153 MG/DL (30-150) H Cholesterol Level 152 MG/DL (< 200) LDL Cholesterol 109 mg/dL (<100) H HDL Cholesterol 13 MG/DL (40-60) L Cholesterol/HDL Ratio 11.7 (3.3-4.4) H Vitamin B12 Level 715 PG/ML (193-986) Folate 4.6 NG/ML (8.6-58.9) L Thyroid Stimulating Hormone (TSH) 1.660 uiU/mL (0.358-3.740) Plan Problems: (1) Abdominal pain Assessment & Plan: 63-year-old female patient with history of recently diagnosed pancreatic cancer in November 2018 presented to the emergency room at [facility] [place] with complaint of abdominal pain for approximately 1 hour. Patient is status post a biliary drain placement at [facility] approximately 1 week ago. She reported that she had a first treatment of chemotherapy this past Thursday. The patient denied any nausea vomiting, denies any constipation or diarrhea. She states her pain medication was unable to relieve her pain. no fever or chills. labs as below. C Tnoted. surgery called to assist with care and management. tube checked okay for diet leave tube in place with cap stable otherwise from surgical standpoint no acute surgical intervention planned iv fluids trend labs will monitor and follow with exam thank you (2) Biliary drain displacement Assessment & Plan: Daughter was able to inform me with a lot of history. Seems patient unresectable initially and attempted biliary drain placed endoscopically but unsuccessful. A external biliary drain was placed by radiology. Would patient was getting her Port-A-Cath placed a another radiologist felt he could place a internal/external biliary drain and he was able to successfully place a internal/external biliary drain. Had the trade Since. Fell off and she has been without it to drainage recently. In evaluating the trade she has some bilious output from the drain and on imaging drain looks to be appropriately placed. Labs reviewed stable. Will plan on cap the drain as it is internal/external it should drain internally IMPRESSION: 1. Appropriately positioned percutaneous left biliary drain with mild intrahepatic biliary ductal dilatation. 2. Ill-defined pancreatic head/proximal body mass, likely corresponding to stated history of pancreatic neoplasm. Please note evaluation of size and vascular involvement of pancreatic masses is incomplete prior examinations and without multiphasic pancreatic protocol. 3. 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 SMV confluence is not visualized. 4. Color wall thickening with pericholecystic fluid; in the absence of distended gallbladder, these findings are critical for acute pancreatitis and clinical correlation is recommended. (3) Pancreatic cancer Assessment & Plan: Pancreatic cancer, non-resectable, based on patient's info. Had a Abdominal pelvis CT reviewed 1. Appropriately positioned percutaneous left biliary drain with mild intrahepatic biliary ductal dilatation. 2. Ill- defined pancreatic head/proximal body mass, likely corresponding to stated history of pancreatic neoplasm. Please note evaluation of size and vascular involvement of pancreatic masses is incomplete prior examinations and without multiphasic pancreatic protocol. 3. 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 She has already started rx Jim Gates Jan 17, 2019 15:45
[2019-01-17 16:00] VITALS: BP 138/89
--- NOTE | 2019-01-17 17:32 | Infectious Diseases Prog Note ---
Assessment/Plan Assessment/Plan Sepsis- r/o bacteremia PNA, CAP -CXR: Patchy consolidation in the right lower lung, concerning for pneumonia. Mild pulmonary vascular congestion. -flu swab negative Abdominal pain Pancreatitis? lipase negative -CT abd/p: Appropriately positioned percutaneous left biliary drain with mild intrahepatic biliary ductal dilatation. Ill-defined pancreatic head/ proximal body mass, likely corresponding to stated history of pancreatic neoplasm. Please note evaluation of size and vascular involvement of pancreatic masses is incomplete prior examinations and without multiphasic pancreatic protocol. 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 SMV confluence is not visualized. Gallbladder wall thickening with pericholecystic fluid; in the absence of distended gallbladder, these findings are critical for acute pancreatitis and clinical correlation is recommended. Fever, SP Leukocytosis; improving recently diagnosed pancreatic CA 11/2018 - s/p biliary drain 1 week [employer] at [facility] -sp 1st chemotherapy treatment 01/10/19 tobacco abuse Plan: -Cont empiric Zosyn and IV Vancomycin #4 -cont Azithromycin #3 01/17 DC Tamifly #2 -f/u cx -Monitor CBC/CMP, temperatures -f/u Bcx x2 -f/u Abd US -aspiration precautions Thank you for this consultation. Will continue to follow along with you. Subjective Allergies: Coded Allergies: No Known Allergies (Unverified , 01/12/19) Subjective Afebrile. Still with abdominal pain. Mild cough. Objective Vital Signs Last 24 Hour Vital Signs Date Time Temp Pulse Resp B/P (MAP) Pulse Ox O2 Delivery O2 Flow Rate FiO2 01/17/19 16:00 98.1 18 18 138/89 (105) 96 01/17/19 12:00 97.8 70 17 151/62 (91) 96 01/17/19 09:00 Nasal Cannula 2.0 01/17/19 08:00 98.4 93 19 171/104 (126) 96 01/17/19 04:00 98.0 80 19 140/71 (94) 96 01/17/19 00:00 98.2 98 19 155/87 (109) 96 01/16/19 21:00 Nasal Cannula 2.0 01/16/19 20:00 98.0 102 19 150/96 (114) 96 Height (Feet): 5 Height (Inches): 3.00 Weight (Pounds): 132 Objective Gen: NAD CV: RRR Resp: RRR Abd: hypoactive BS+. Diffusely TTP but worse RUQ. Ext: no edema Neuro: alert. Microbiology Date/Time Source Procedure Growth Status 01/14/19 18:25 Blood Blood Culture - Preliminary NO GROWTH AFTER 48 HOURS Resulted 01/14/19 18:15 Blood Blood Culture - Preliminary NO GROWTH AFTER 48 HOURS Resulted 01/15/19 14:15 Nasopharynx - Final Complete 01/15/19 14:15 Nasopharynx - Final Complete Laboratory Tests Test 01/17/19 06:12 White Blood Count 20.1 K/UL (4.8-10.8) H Red Blood Count 4.04 M/UL (4.20-5.40) L Hemoglobin 12.9 G/DL (12.0-16.0) Hematocrit 37.4 % (37.0-47.0) Mean Corpuscular Volume 93 FL (80-99) Mean Corpuscular Hemoglobin 31.9 PG (27.0-31.0) H Mean Corpuscular Hemoglobin Concent 34.4 G/DL (32.0-36.0) Red Cell Distribution Width 12.5 % (11.6-14.8) Platelet Count 290 K/UL (150-450) Mean Platelet Volume 7.0 FL (6.5-10.1) Neutrophils (%) (Auto) % (45.0-75.0) Lymphocytes (%) (Auto) % (20.0-45.0) Monocytes (%) (Auto) % (1.0-10.0) Eosinophils (%) (Auto) % (0.0-3.0) Basophils (%) (Auto) % (0.0-2.0) Differential Total Cells Counted 100 Neutrophils % (Manual) 86 % (45-75) H Lymphocytes % (Manual) 6 % (20-45) L Monocytes % (Manual) 2 % (1-10) Eosinophils % (Manual) 0 % (0-3) Basophils % (Manual) 0 % (0-2) Band Neutrophils 6 % (0-8) Platelet Estimate Adequate Platelet Morphology Normal Red Blood Cell Morphology Normal Sodium Level 134 MMOL/L (136-145) L Potassium Level 3.4 MMOL/L (3.5-5.1) L Chloride Level 96 MMOL/L (98-107) L Carbon Dioxide Level 26 MMOL/L (21-32) Anion Gap 12 mmol/L (5-15) Blood Urea Nitrogen 9 mg/dL (7-18) Creatinine 0.7 MG/DL (0.55-1.30) # Estimat Glomerular Filtration Rate > 60 mL/min (>60) Glucose Level 111 MG/DL (74-106) H Uric Acid 3.0 MG/DL (2.6-7.2) Calcium Level 8.5 MG/DL (8.5-10.1) Phosphorus Level 4.0 MG/DL (2.5-4.9) Magnesium Level 2.1 MG/DL (1.8-2.4) Iron Level 14 ug/dL (50-175) L Total Iron Binding Capacity 129 ug/dL (250-450) L Percent Iron Saturation 11 % (15-50) L Unsaturated Iron Binding 115 ug/dL (112-346) Ferritin 860 NG/ML (8-388) H Total Bilirubin 1.0 MG/DL (0.2-1.0) Aspartate Amino Transf (AST/SGOT) 23 U/L (15-37) Alanine Aminotransferase (ALT/SGPT) 23 U/L (12-78) Alkaline Phosphatase 150 U/L (46-116) H C-Reactive Protein, Quantitative 21.0 mg/dL (0.00-0.90) H Pro-B-Type Natriuretic Peptide 921 pg/mL (0-125) H Total Protein 5.7 G/DL (6.4-8.2) L Albumin 1.7 G/DL (3.4-5.0) L Globulin 4.0 g/dL Albumin/Globulin Ratio 0.4 (1.0-2.7) L Triglycerides Level 153 MG/DL (30-150) H Cholesterol Level 152 MG/DL (< 200) LDL Cholesterol 109 mg/dL (<100) H HDL Cholesterol 13 MG/DL (40-60) L Cholesterol/HDL Ratio 11.7 (3.3-4.4) H Vitamin B12 Level 715 PG/ML (193-986) Folate 4.6 NG/ML (8.6-58.9) L Thyroid Stimulating Hormone (TSH) 1.660 uiU/mL (0.358-3.740) Current Medications Medications (Trade) Dose Ordered Sig/Zuleima Route PRN Reason Start Time Stop Time Status Last Admin Dose Admin Acetaminophen (Tylenol) 650 mg Q8H PRN ORAL Mild Pain/Temp > 100.5 01/12/19 17:30 02/11/19 17:29 01/13/19 17:27 Azithromycin (Zithromax) 500 mg DAILY ORAL 01/15/19 14:00 01/22/19 13:59 01/17/19 09:38 Bisacodyl (Dulcolax) 10 mg BIDPRN PRN RECTAL Constipation 01/16/19 07:45 02/15/19 07:44 01/16/19 10:01 Dextrose (Dextrose 50%) 25 ml Q30M PRN IV Hypoglycemia 01/12/19 13:45 02/11/19 13:44 Dextrose (Dextrose 50%) 50 ml Q30M PRN IV Hypoglycemia 01/12/19 13:45 02/11/19 13:44 Dextrose/ Electrolytes 1,000 ml @ 50 mls/hr Q20H IV 01/16/19 16:15 02/15/19 16:14 01/16/19 17:33 Docusate Sodium (Colace) 100 mg TWICE A DAY ORAL 01/15/19 18:00 02/14/19 17:59 01/17/19 09:39 Fentanyl (Duragesic) 1 patch Q72H TDERMAL 01/19/19 12:00 01/26/19 11:59 Folic Acid (Folate) 5 mg DAILY ORAL 01/17/19 09:45 02/16/19 09:44 01/17/19 10:08 Hydromorphone HCl (Dilaudid) 1 mg Q2H PRN IVP severe breakthrough pain 01/16/19 12:15 01/20/19 18:14 01/17/19 16:29 Lactulose (Cephulac) 10 gm THREE TIMES A DAY ORAL 01/16/19 13:00 02/15/19 12:59 01/16/19 17:33 Miscellaneous Medication (fentaNYL Destruction) 1 ea Q72H MISC 01/19/19 12:00 02/18/19 11:59 Naloxone HCl (Narcan) 0.1 mg Q5M PRN IV Sedation scale 3 or 4 01/16/19 12:00 02/15/19 11:59 Ondansetron HCl (Zofran) 4 mg Q6H PRN IVP Nausea & Vomiting 01/12/19 13:45 02/11/19 13:44 01/17/19 16:25 Oseltamivir Phosphate (Tamiflu) 75 mg Q12HR ORAL 01/15/19 14:00 01/20/19 13:59 01/17/19 09:38 Pantoprazole (Protonix) 40 mg DAILY IVP 01/12/19 16:45 02/11/19 16:44 01/17/19 09:39 Piperacillin Sod/ Tazobactam Sod 3.375 gm/Sodium Chloride 110 ml @ 27.5 mls/hr Q8H IVPB 01/14/19 17:00 01/21/19 16:59 01/17/19 09:53 Polyethylene Glycol (Miralax) 17 gm BEDTIME ORAL 01/16/19 21:00 02/15/19 20:59 Vancomycin HCl (Vanco rx to dose) 1 ea DAILY PRN MISC Per rx protocol 01/14/19 20:30 02/13/19 20:29 Vancomycin HCl 1 gm/Dextrose 275 ml @ 183.708 mls/hr Q12HR@1000,2200 IVPB 01/14/19 22:00 01/19/19 21:59 01/17/19 13:36 Catalina Kirby MD Jan 17, 2019 17:32
--- NOTE | 2019-01-17 18:00 | NUR ---
NURSE NOTES: Patient resting,IV fluids infusing as ordered. Patient refusing lactulose,patient state it make her nauseated.patient agree to take the colace as ordered. patient had a small BM .Call light within reach.
--- NOTE | 2019-01-17 19:42 | NUR ---
HAND-OFF: Report given to Renu BLOOD.
[2019-01-17 20:00] VITALS: BP 134/74
--- NOTE | 2019-01-17 20:00 | NUR ---
NURSE NOTES: Received patient awake in bed, c/o 8 pain, will administer pain medication per MD order. VSS. Billiary duct noted on abdomen, clamped. IV access patent running IVF maintenance. Bed low and locked, patient self turning in bed but unable to tolerate ambulation at this time.
[2019-01-17] MEDS: Miralax 17gm pkt ORAL SCH (20:52)
[2019-01-18] VITALS: BP 138/93
[2019-01-18] MEDS: HYDROmorphone 1mg/ml Carpuject IVP PRN ×5 (01:08→12:21)
[2019-01-18] MEDS: D5NS w/KCl 40mEq 1000ml 1,000 ML IV SCH (01:09)
[2019-01-18] MEDS: Piperacillin/Tazobactam 3.375 GM in NS 110 ML IVPB SCH ×3 (01:10→18:47)
--- NOTE | 2019-01-18 03:56 | NUR ---
HAND-OFF: Report given to CAITIE Elizabeth.
--- NOTE | 2019-01-18 03:56 | NUR ---
NURSE NOTES: Received report from CAITIE Sears. Patient a/a/o x 4, breathing unlabored on room air without distress. IV noted on left forearm intact and patent. Biliary drainage intact and closed. Bed placed at the lowest with brake and siderails up for safety. Call light placed within reach. Will continue to monitor and provide care as ordered.
[2019-01-18 04:00] VITALS: BP 116/71
[2019-01-18] MEDS: Vancomycin 750mg/D5W 275ml IVPB SCH ×4 (04:59→17:06)
--- NOTE | 2019-01-18 05:00 | NUR ---
NURSE NOTES: changed linens completely and cleaned patient. Patient not in distress. Pain management provided as ordered. Will continue to monitor.
[2019-01-18 07:28] LABS: HEMATOCRIT 34.6 % (37.0-47.0); HEMOGLOBIN 11.8 G/DL (12.0-16.0); MEAN CORPUSCULAR VOLUME 94 FL (80-99); PLATELET COUNT 338 K/UL (150-450); RED BLOOD COUNT 3.67 M/UL (4.20-5.40); RED CELL DISTRIBUTION WIDTH 12.8 % (11.6-14.8); WHITE BLOOD COUNT 18.4 K/UL (4.8-10.8)
--- NOTE | 2019-01-18 07:40 | NUR ---
HAND-OFF: Report given to CAITIE Smart.
[2019-01-18 07:42] LABS: ANION GAP 8 mmol/L (5-15); BLOOD UREA NITROGEN 13 mg/dL (7-18); CALCIUM 8.2 MG/DL (8.5-10.1); CARBON DIOXIDE 25 MMOL/L (21-32); CHLORIDE 102 MMOL/L (98-107); CREATININE 1.1 MG/DL (0.55-1.30); POTASSIUM 4.9 MMOL/L (3.5-5.1); SODIUM 135 MMOL/L (136-145)
[2019-01-18 08:00] VITALS: BP 123/68
--- NOTE | 2019-01-18 08:35 | NUR ---
NURSE NOTES: Patient is alert and oriented respirations unlabored.IV fluids infusing as ordered.patient has biliary drain to abdominal area,noted some yellow color drainage.Skin care given .Pain medication will be given as ordered,patient requesting pain medication.Call light within reach,bed alarm is on.
[2019-01-18] MEDS: Lactulose 10gm/15ml UDC ORAL SCH ×3 (09:00→18:00)
[2019-01-18] MEDS: Pantoprazole Inj IVP SCH (09:10)
--- NOTE | 2019-01-18 10:17 | NUR ---
*-* INSURANCE *-* ALL AVAILABLE CLINICALS HAVE BEEN FAXED TO: [employer] REF#[id number] - FOR TRACKING PURPOSES THIS IS SHARED RISK NO CM ASSIGNED PH#[phone] FAX#[phone] REVIEWS/CLINICALS & [facility] TRACKING#[id number] CM: TAMMY PH#[phone] EXT [phone] FAX#[phone] REVIEWS/CLINICALS Addendum: 01/18/19 at 1038 by PRINCE PEREZ CM TRIED CONTACT [employer] I WAS ON HLD FOR 45 MIN WITH NO LUCK UNABLE TO GET SOMEONE ON THE LINE TO HELP ME. TRIED CALLING [facility] WITH NO LUCK LEFT A SERAFIN FOR NCM:TAMMY TO CALL US TO CONFIRM HE DOMÍNGUEZ BEEN RECEIVING CLINICALS.
[2019-01-18] MEDS: Docusate 100mg cap ORAL SCH ×2 (10:24→18:34)
[2019-01-18] MEDS: Azithromycin 250mg tab ORAL SCH (10:27)
[2019-01-18 12:00] VITALS: BP 137/75
--- NOTE | 2019-01-18 12:59 | GI Progress Note ---
Assessment/Plan Problems: (1) Pancreatic cancer ICD Codes: C25.9 - Malignant neoplasm of pancreas, unspecified SNOMED: 213944099 (2) Biliary drain displacement ICD Codes: T85.520A - Displacement of bile duct prosthesis, initial encounter SNOMED: 052634134 (3) Abdominal pain ICD Codes: R10.9 - Unspecified abdominal pain SNOMED: 56522230 Status: unchanged Status Narrative Discussed with Dr. Rocha. Assessment/Plan Abdominal pelvis CT reviewed 1. Appropriately positioned percutaneous left biliary drain with mild intrahepatic biliary ductal dilatation. 2. Ill-defined pancreatic head/proximal body mass, likely corresponding to stated history of pancreatic neoplasm. Please note evaluation of size and vascular involvement of pancreatic masses is incomplete prior examinations and without multiphasic pancreatic protocol. 3. 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 SMV confluence is not visualized. 4. Color wall thickening with pericholecystic fluid; in the absence of distended gallbladder, these findings are critical for acute pancreatitis and clinical correlation is recommended. No plans for GI procedures at this time. Symptomatic treatment surgical recommendations, no interventions at this time Follow-up pain management recommendations ppi Trend LFTs advance diet as tolerated We will follow-up The patient was seen and examined at bedside and all new and available data was reviewed in the patients chart. I agree with the above findings, impression and plan. (Patient seen earlier today. Signature stamp does not reflect patient encounter time.). - Indra Rocha MD Subjective Subjective Patient still complains of abdominal pain, but states her pain is improved with increased dosage of medication Objective Last 24 Hour Vital Signs Date Time Temp Pulse Resp B/P (MAP) Pulse Ox O2 Delivery O2 Flow Rate FiO2 01/18/19 09:36 Room Air 01/18/19 08:00 96.3 74 16 123/68 (86) 9 01/18/19 04:00 98.0 76 18 116/71 (86) 98 01/18/19 01:38 98.1 01/18/19 00:00 98.1 83 18 138/93 (108) 98 01/17/19 21:24 Room Air 01/17/19 20:00 98.4 85 18 134/74 (94) 98 01/17/19 16:00 98.1 18 18 138/89 (105) 96 Intake and Output 01/17/19 01/18/19 19:00 07:00 Intake Total 450 ml 775.000 ml Output Total 800 ml Balance 450 ml -25.000 ml IV Total 450 ml 275.000 ml Other 500 ml Output Urine Total 800 ml # Voids 1 Laboratory Tests Test 01/17/19 21:05 01/18/19 07:00 Vancomycin Level Trough 27.7 ug/mL (5.0-12.0) H White Blood Count 18.4 K/UL (4.8-10.8) H Red Blood Count 3.67 M/UL (4.20-5.40) L Hemoglobin 11.8 G/DL (12.0-16.0) L Hematocrit 34.6 % (37.0-47.0) L Mean Corpuscular Volume 94 FL (80-99) Mean Corpuscular Hemoglobin 32.1 PG (27.0-31.0) H Mean Corpuscular Hemoglobin Concent 34.0 G/DL (32.0-36.0) Red Cell Distribution Width 12.8 % (11.6-14.8) Platelet Count 338 K/UL (150-450) Mean Platelet Volume 6.6 FL (6.5-10.1) Neutrophils (%) (Auto) % (45.0-75.0) Lymphocytes (%) (Auto) % (20.0-45.0) Monocytes (%) (Auto) % (1.0-10.0) Eosinophils (%) (Auto) % (0.0-3.0) Basophils (%) (Auto) % (0.0-2.0) Differential Total Cells Counted 100 Neutrophils % (Manual) 92 % (45-75) H Lymphocytes % (Manual) 5 % (20-45) L Monocytes % (Manual) 3 % (1-10) Eosinophils % (Manual) 0 % (0-3) Basophils % (Manual) 0 % (0-2) Band Neutrophils 0 % (0-8) Nucleated Red Blood Cells 1 /100 WBC Platelet Estimate Adequate Platelet Morphology Normal Sodium Level 135 MMOL/L (136-145) L Potassium Level 4.9 MMOL/L (3.5-5.1) Chloride Level 102 MMOL/L (98-107) Carbon Dioxide Level 25 MMOL/L (21-32) Anion Gap 8 mmol/L (5-15) Blood Urea Nitrogen 13 mg/dL (7-18) Creatinine 1.1 MG/DL (0.55-1.30) # Estimat Glomerular Filtration Rate 50.3 mL/min (>60) Glucose Level 150 MG/DL (74-106) H Calcium Level 8.2 MG/DL (8.5-10.1) L Height (Feet): 5 Height (Inches): 3.00 Weight (Pounds): 132 General Appearance: WD/WN, no apparent distress, alert Cardiovascular: normal rate Respiratory/Chest: normal breath sounds, no respiratory distress Abdominal Exam: normal bowel sounds, non tender, soft Extremities: non-tender Jeff Rueda NP Jan 18, 2019 12:59
--- NOTE | 2019-01-18 13:20 | Nephrology Progress Note ---
Assessment/Plan Problem List: (1) Electrolyte abnormality (2) Pancreatic cancer (3) Biliary drain displacement (4) Abdominal pain (5) Malnutrition Assessment HypoKalemia HypoNatremia Abdominal pain. Nausea. Vomiting. UTI. Pancreatic cancer. Biliary drain displacement Malnutrition. Anemia Plan IV K , or PO if IV not tolerated and valenzuela the site check labs change IV to isotonic solution monitor lytes start PO Folic acid Subjective ROS Limited/Unobtainable: No Constitutional: Reports: malaise Objective Objective Last 24 Hour Vital Signs Date Time Temp Pulse Resp B/P (MAP) Pulse Ox O2 Delivery O2 Flow Rate FiO2 01/18/19 12:00 96.6 79 17 137/75 (95) 98 01/18/19 09:36 Room Air 01/18/19 08:00 96.3 74 16 123/68 (86) 97 01/18/19 04:00 98.0 76 18 116/71 (86) 98 01/18/19 01:38 98.1 01/18/19 00:00 98.1 83 18 138/93 (108) 98 01/17/19 21:24 Room Air 01/17/19 20:00 98.4 85 18 134/74 (94) 98 01/17/19 16:00 98.1 18 18 138/89 (105) 96 Intake and Output 01/17/19 01/18/19 19:00 07:00 Intake Total 450 ml 775.000 ml Output Total 800 ml Balance 450 ml -25.000 ml IV Total 450 ml 275.000 ml Other 500 ml Output Urine Total 800 ml # Voids 1 Laboratory Tests 01/17/19 21:05: Vancomycin Level Trough 27.7H 01/18/19 07:00: White Blood Count 18.4H, Red Blood Count 3.67L, Hemoglobin 11.8L, Hematocrit 34.6L, Mean Corpuscular Volume 94, Mean Corpuscular Hemoglobin 32.1H, Mean Corpuscular Hemoglobin Concent 34.0, Red Cell Distribution Width 12.8, Platelet Count 338, Mean Platelet Volume 6.6, Neutrophils (%) (Auto) , Lymphocytes (%) ( Auto) , Monocytes (%) (Auto) , Eosinophils (%) (Auto) , Basophils (%) (Auto) , Differential Total Cells Counted 100, Neutrophils % (Manual) 92H, Lymphocytes % (Manual) 5L, Monocytes % (Manual) 3, Eosinophils % (Manual) 0, Basophils % ( Manual) 0, Band Neutrophils 0, Nucleated Red Blood Cells 1, Platelet Estimate Adequate, Platelet Morphology Normal, Sodium Level 135L, Potassium Level 4.9, Chloride Level 102, Carbon Dioxide Level 25, Anion Gap 8, Blood Urea Nitrogen 13 , Creatinine 1.1#, Estimat Glomerular Filtration Rate 50.3, Glucose Level 150H, Calcium Level 8.2L Height (Feet): 5 Height (Inches): 3.00 Weight (Pounds): 132 General Appearance: no apparent distress Objective no change Kapil Turcios MD Jan 18, 2019 13:20
--- NOTE | 2019-01-18 13:22 | Surgery Progress Note ---
Surgery Progress Note Subjective Additional Comments persistent leukocytosis exam stable c/o pain still drainage around internal external bili drain lft's okay drain placed to gravity and no longer capped Objective Last 24 Hour Vital Signs Date Time Temp Pulse Resp B/P (MAP) Pulse Ox O2 Delivery O2 Flow Rate FiO2 01/18/19 12:00 96.6 79 17 137/75 (95) 98 01/18/19 09:36 Room Air 01/18/19 08:00 96.3 74 16 123/68 (86) 97 01/18/19 04:00 98.0 76 18 116/71 (86) 98 01/18/19 01:38 98.1 01/18/19 00:00 98.1 83 18 138/93 (108) 98 01/17/19 21:24 Room Air 01/17/19 20:00 98.4 85 18 134/74 (94) 98 01/17/19 16:00 98.1 18 18 138/89 (105) 96 I&O Intake and Output 01/17/19 01/18/19 19:00 07:00 Intake Total 450 ml 775.000 ml Output Total 800 ml Balance 450 ml -25.000 ml IV Total 450 ml 275.000 ml Other 500 ml Output Urine Total 800 ml # Voids 1 Dressing: saturated Wound: other Drains: other Cardiovascular: RSR Respiratory: clear Abdomen: soft, flat, non-tender, present bowel sounds, non-distended Extremities: no cyanosis Laboratory Tests Test 01/17/19 21:05 01/18/19 07:00 Vancomycin Level Trough 27.7 ug/mL (5.0-12.0) H White Blood Count 18.4 K/UL (4.8-10.8) H Red Blood Count 3.67 M/UL (4.20-5.40) L Hemoglobin 11.8 G/DL (12.0-16.0) L Hematocrit 34.6 % (37.0-47.0) L Mean Corpuscular Volume 94 FL (80-99) Mean Corpuscular Hemoglobin 32.1 PG (27.0-31.0) H Mean Corpuscular Hemoglobin Concent 34.0 G/DL (32.0-36.0) Red Cell Distribution Width 12.8 % (11.6-14.8) Platelet Count 338 K/UL (150-450) Mean Platelet Volume 6.6 FL (6.5-10.1) Neutrophils (%) (Auto) % (45.0-75.0) Lymphocytes (%) (Auto) % (20.0-45.0) Monocytes (%) (Auto) % (1.0-10.0) Eosinophils (%) (Auto) % (0.0-3.0) Basophils (%) (Auto) % (0.0-2.0) Differential Total Cells Counted 100 Neutrophils % (Manual) 92 % (45-75) H Lymphocytes % (Manual) 5 % (20-45) L Monocytes % (Manual) 3 % (1-10) Eosinophils % (Manual) 0 % (0-3) Basophils % (Manual) 0 % (0-2) Band Neutrophils 0 % (0-8) Nucleated Red Blood Cells 1 /100 WBC Platelet Estimate Adequate Platelet Morphology Normal Sodium Level 135 MMOL/L (136-145) L Potassium Level 4.9 MMOL/L (3.5-5.1) Chloride Level 102 MMOL/L (98-107) Carbon Dioxide Level 25 MMOL/L (21-32) Anion Gap 8 mmol/L (5-15) Blood Urea Nitrogen 13 mg/dL (7-18) Creatinine 1.1 MG/DL (0.55-1.30) # Estimat Glomerular Filtration Rate 50.3 mL/min (>60) Glucose Level 150 MG/DL (74-106) H Calcium Level 8.2 MG/DL (8.5-10.1) L Plan Problems: (1) Abdominal pain Assessment & Plan: 63-year-old female patient with history of recently diagnosed pancreatic cancer in November 2018 [place] [facility] [place] of abdominal pain for approximately 1 hour. Patient is status post a biliary drain placement at [facility] approximately 1 week ago. She reported that she had a first treatment of chemotherapy this past Thursday. The patient denied any nausea vomiting, denies any constipation or diarrhea. She states her pain medication was unable to relieve her pain. no fever or chills. labs as below. C Tnoted. surgery called to assist with care and management. tube checked okay for diet leave tube in place with cap stable otherwise from surgical standpoint no acute surgical intervention planned iv fluids trend labs will monitor and follow with exam thank you (2) Biliary drain displacement Assessment & Plan: Daughter was able to inform me with a lot of history. Seems patient unresectable initially and attempted biliary drain placed endoscopically but unsuccessful. A external biliary drain was placed by radiology. Would patient was getting her Port-A-Cath placed a another radiologist felt he could place a internal/external biliary drain and he was able to successfully place a internal/external biliary drain. Had the trade Since. Fell off and she has been without it to drainage recently. In evaluating the trade she has some bilious output from the drain and on imaging drain looks to be appropriately placed. Labs reviewed stable. drain placed to gravity as leaking IMPRESSION: 1. Appropriately positioned percutaneous left biliary drain with mild intrahepatic biliary ductal dilatation. 2. Ill-defined pancreatic head/proximal body mass, likely corresponding to stated history of pancreatic neoplasm. Please note evaluation of size and vascular involvement of pancreatic masses is incomplete prior examinations and without multiphasic pancreatic protocol. 3. 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 SMV confluence is not visualized. 4. Color wall thickening with pericholecystic fluid; in the absence of distended gallbladder, these findings are critical for acute pancreatitis and clinical correlation is recommended. (3) Pancreatic cancer Assessment & Plan: Pancreatic cancer, non-resectable, based on patient's info. Had a Abdominal pelvis CT reviewed 1. Appropriately positioned percutaneous left biliary drain with mild intrahepatic biliary ductal dilatation. 2. Ill- defined pancreatic head/proximal body mass, likely corresponding to stated history of pancreatic neoplasm. Please note evaluation of size and vascular involvement of pancreatic masses is incomplete prior examinations and without multiphasic pancreatic protocol. 3. 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 She has already started rx Jim Gates Jan 18, 2019 13:21
--- NOTE | 2019-01-18 13:53 | General Progress Note ---
Assessment/Plan Problem List: (1) SOB (shortness of breath) ICD Codes: R06.02 - Shortness of breath SNOMED: 210153452 (2) Nausea & vomiting ICD Codes: R11.2 - Nausea with vomiting, unspecified SNOMED: 09850049 (3) Malnutrition ICD Codes: E46 - Unspecified protein-calorie malnutrition SNOMED: 57955296 (4) UTI (urinary tract infection) ICD Codes: N39.0 - Urinary tract infection, site not specified SNOMED: 66245743 (5) Abdominal pain ICD Codes: R10.9 - Unspecified abdominal pain SNOMED: 17079973 (6) Biliary drain displacement ICD Codes: T85.520A - Displacement of bile duct prosthesis, initial encounter SNOMED: 286447060 (7) Pancreatic cancer ICD Codes: C25.9 - Malignant neoplasm of pancreas, unspecified SNOMED: 274882963 Status: unchanged Assessment/Plan: pt diet pain control abx cbc bmp am Subjective Constitutional: Reports: weakness Allergies: Coded Allergies: No Known Allergies (Unverified , 01/12/19) All Systems: reviewed and negative except above Subjective o2nc sl nausea abd pain Objective Last 24 Hour Vital Signs Date Time Temp Pulse Resp B/P (MAP) Pulse Ox O2 Delivery O2 Flow Rate FiO2 01/18/19 12:00 96.6 79 17 137/75 (95) 98 01/18/19 09:36 Room Air 01/18/19 08:00 96.3 74 16 123/68 (86) 97 01/18/19 04:00 98.0 76 18 116/71 (86) 98 01/18/19 01:38 98.1 01/18/19 00:00 98.1 83 18 138/93 (108) 98 01/17/19 21:24 Room Air 01/17/19 20:00 98.4 85 18 134/74 (94) 98 01/17/19 16:00 98.1 18 18 138/89 (105) 96 Intake and Output 01/17/19 01/18/19 19:00 07:00 Intake Total 450 ml 775.000 ml Output Total 800 ml Balance 450 ml -25.000 ml IV Total 450 ml 275.000 ml Other 500 ml Output Urine Total 800 ml # Voids 1 Laboratory Tests 01/17/19 21:05: Vancomycin Level Trough 27.7H 01/18/19 07:00: White Blood Count 18.4H, Red Blood Count 3.67L, Hemoglobin 11.8L, Hematocrit 34.6L, Mean Corpuscular Volume 94, Mean Corpuscular Hemoglobin 32.1H, Mean Corpuscular Hemoglobin Concent 34.0, Red Cell Distribution Width 12.8, Platelet Count 338, Mean Platelet Volume 6.6, Neutrophils (%) (Auto) , Lymphocytes (%) ( Auto) , Monocytes (%) (Auto) , Eosinophils (%) (Auto) , Basophils (%) (Auto) , Differential Total Cells Counted 100, Neutrophils % (Manual) 92H, Lymphocytes % (Manual) 5L, Monocytes % (Manual) 3, Eosinophils % (Manual) 0, Basophils % ( Manual) 0, Band Neutrophils 0, Nucleated Red Blood Cells 1, Platelet Estimate Adequate, Platelet Morphology Normal, Sodium Level 135L, Potassium Level 4.9, Chloride Level 102, Carbon Dioxide Level 25, Anion Gap 8, Blood Urea Nitrogen 13 , Creatinine 1.1#, Estimat Glomerular Filtration Rate 50.3, Glucose Level 150H, Calcium Level 8.2L Height (Feet): 5 Height (Inches): 3.00 Weight (Pounds): 132 General Appearance: lethargic EENT: normal ENT inspection Neck: normal alignment Cardiovascular: normal peripheral pulses, normal rate, regular rhythm Respiratory/Chest: chest wall non-tender, lungs clear, normal breath sounds Abdomen: normal bowel sounds, non tender, soft Extremities: normal inspection Edema: no edema noted Arm (L), no edema noted Arm (R), no edema noted Leg (L), no edema noted Leg (R), no edema noted Pedal (L), no edema noted Pedal (R), no edema noted Generalized Neurologic: responsive, motor weakness Skin: normal pigmentation, warm/dry Elvis Luke DO Jan 18, 2019 13:53
--- NOTE | 2019-01-18 14:14 | General Progress Note ---
Assessment/Plan Assessment/Plan: (1) Intractable abdominal pain (2) Pancreatic cancer We will continue the Dilaudid changed to 4mg PO 1 tab Q4H PRN severe pain and Fentanyl patch D/w Dr. Gonzales and he concurred. Subjective Date patient seen: Jan 18, 2019 Time patient seen: 01:30 - pm Allergies: Coded Allergies: No Known Allergies (Unverified , 01/12/19) Subjective REVIEW OF SYSTEMS: Denies rash, fever, chills, sweating, dizziness, drowsiness, blurred vision, sore throat, change in weight. No shortness of breath or chest pain. No bowel or bladder incontinence. She is complaining of abdominal pain. SUBJECTIVE: Patient continues to c/o pain. She is on the Fentanyl patch using 5 doses of the Dilaudid IV. She has tolerated her diet and I d/w her about changing the Dilaudid IV to tabs. Pt seems to understand. Objective Last 24 Hour Vital Signs Date Time Temp Pulse Resp B/P (MAP) Pulse Ox O2 Delivery O2 Flow Rate FiO2 01/18/19 12:00 96.6 79 17 137/75 (95) 98 01/18/19 09:36 Room Air 01/18/19 08:00 96.3 74 16 123/68 (86) 97 01/18/19 04:00 98.0 76 18 116/71 (86) 98 01/18/19 01:38 98.1 01/18/19 00:00 98.1 83 18 138/93 (108) 98 01/17/19 21:24 Room Air 01/17/19 20:00 98.4 85 18 134/74 (94) 98 01/17/19 16:00 98.1 18 18 138/89 (105) 96 Intake and Output 01/17/19 01/18/19 19:00 07:00 Intake Total 450 ml 775.000 ml Output Total 800 ml Balance 450 ml -25.000 ml IV Total 450 ml 275.000 ml Other 500 ml Output Urine Total 800 ml # Voids 1 Laboratory Tests 01/17/19 21:05: Vancomycin Level Trough 27.7H 01/18/19 07:00: White Blood Count 18.4H, Red Blood Count 3.67L, Hemoglobin 11.8L, Hematocrit 34.6L, Mean Corpuscular Volume 94, Mean Corpuscular Hemoglobin 32.1H, Mean Corpuscular Hemoglobin Concent 34.0, Red Cell Distribution Width 12.8, Platelet Count 338, Mean Platelet Volume 6.6, Neutrophils (%) (Auto) , Lymphocytes (%) ( Auto) , Monocytes (%) (Auto) , Eosinophils (%) (Auto) , Basophils (%) (Auto) , Differential Total Cells Counted 100, Neutrophils % (Manual) 92H, Lymphocytes % (Manual) 5L, Monocytes % (Manual) 3, Eosinophils % (Manual) 0, Basophils % ( Manual) 0, Band Neutrophils 0, Nucleated Red Blood Cells 1, Platelet Estimate Adequate, Platelet Morphology Normal, Sodium Level 135L, Potassium Level 4.9, Chloride Level 102, Carbon Dioxide Level 25, Anion Gap 8, Blood Urea Nitrogen 13 , Creatinine 1.1#, Estimat Glomerular Filtration Rate 50.3, Glucose Level 150H, Calcium Level 8.2L Height (Feet): 5 Height (Inches): 3.00 Weight (Pounds): 132 Objective GENERAL: Alert, awake, and oriented. LUNGS: Clear bilaterally. HEART: S1, S2 regular. ABDOMEN: Tenderness to palpation with biliary stent noted. BACK: Range of motion is decreased in flexion, extension. EXTREMITIES: No cyanosis. No clubbing. No edema. NEURO: No changes. Doug Reid Jan 18, 2019 14:14
--- NOTE | 2019-01-18 14:57 | Infectious Diseases Prog Note ---
Assessment/Plan Assessment/Plan Sepsis- r/o bacteremia 01/14 bcx ngtd PNA, CAP -CXR: Patchy consolidation in the right lower lung, concerning for pneumonia. Mild pulmonary vascular congestion. -flu swab negative urine legionella antigen negative Abdominal pain Pancreatitis? lipase negative CT abd/p: Appropriately positioned percutaneous left biliary drain with mild intrahepatic biliary ductal dilatation. Ill-defined pancreatic head/ proximal body mass, likely corresponding to stated history of pancreatic neoplasm. Please note evaluation of size and vascular involvement of pancreatic masses is incomplete prior examinations and without multiphasic pancreatic protocol. 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 SMV confluence is not visualized. Gallbladder wall thickening with pericholecystic fluid; in the absence of distended gallbladder, these findings are critical for acute pancreatitis and clinical correlation is recommended. 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 Will continue to follow along with you. Subjective Allergies: Coded Allergies: No Known Allergies (Unverified , 01/12/19) Subjective Afebrile. Reports abdominal pain. Container attached to biliary drain for collection Denies SOB. Now denies cough. Objective Vital Signs Last 24 Hour Vital Signs Date Time Temp Pulse Resp B/P (MAP) Pulse Ox O2 Delivery O2 Flow Rate FiO2 01/18/19 12:00 96.6 79 17 137/75 (95) 98 01/18/19 09:36 Room Air 01/18/19 08:00 96.3 74 16 123/68 (86) 97 01/18/19 04:00 98.0 76 18 116/71 (86) 98 01/18/19 01:38 98.1 01/18/19 00:00 98.1 83 18 138/93 (108) 98 01/17/19 21:24 Room Air 01/17/19 20:00 98.4 85 18 134/74 (94) 98 01/17/19 16:00 98.1 18 18 138/89 (105) 96 Height (Feet): 5 Height (Inches): 3.00 Weight (Pounds): 132 Objective Gen: NAD CV: RRR Resp: RRR Abd: hypoactive BS+. Diffusely TTP but worse RUQ. Ext: no edema Neuro: alert. Laboratory Tests Test 01/17/19 21:05 01/18/19 07:00 Vancomycin Level Trough 27.7 ug/mL (5.0-12.0) H White Blood Count 18.4 K/UL (4.8-10.8) H Red Blood Count 3.67 M/UL (4.20-5.40) L Hemoglobin 11.8 G/DL (12.0-16.0) L Hematocrit 34.6 % (37.0-47.0) L Mean Corpuscular Volume 94 FL (80-99) Mean Corpuscular Hemoglobin 32.1 PG (27.0-31.0) H Mean Corpuscular Hemoglobin Concent 34.0 G/DL (32.0-36.0) Red Cell Distribution Width 12.8 % (11.6-14.8) Platelet Count 338 K/UL (150-450) Mean Platelet Volume 6.6 FL (6.5-10.1) Neutrophils (%) (Auto) % (45.0-75.0) Lymphocytes (%) (Auto) % (20.0-45.0) Monocytes (%) (Auto) % (1.0-10.0) Eosinophils (%) (Auto) % (0.0-3.0) Basophils (%) (Auto) % (0.0-2.0) Differential Total Cells Counted 100 Neutrophils % (Manual) 92 % (45-75) H Lymphocytes % (Manual) 5 % (20-45) L Monocytes % (Manual) 3 % (1-10) Eosinophils % (Manual) 0 % (0-3) Basophils % (Manual) 0 % (0-2) Band Neutrophils 0 % (0-8) Nucleated Red Blood Cells 1 /100 WBC Platelet Estimate Adequate Platelet Morphology Normal Sodium Level 135 MMOL/L (136-145) L Potassium Level 4.9 MMOL/L (3.5-5.1) Chloride Level 102 MMOL/L (98-107) Carbon Dioxide Level 25 MMOL/L (21-32) Anion Gap 8 mmol/L (5-15) Blood Urea Nitrogen 13 mg/dL (7-18) Creatinine 1.1 MG/DL (0.55-1.30) # Estimat Glomerular Filtration Rate 50.3 mL/min (>60) Glucose Level 150 MG/DL (74-106) H Calcium Level 8.2 MG/DL (8.5-10.1) L Current Medications Medications (Trade) Dose Ordered Sig/Zuleima Route PRN Reason Start Time Stop Time Status Last Admin Dose Admin Acetaminophen (Tylenol) 650 mg Q8H PRN ORAL Mild Pain/Temp > 100.5 01/12/19 17:30 02/11/19 17:29 01/13/19 17:27 Azithromycin (Zithromax) 500 mg DAILY ORAL 01/15/19 14:00 01/22/19 13:59 01/18/19 10:27 Bisacodyl (Dulcolax) 10 mg BIDPRN PRN RECTAL Constipation 01/16/19 07:45 02/15/19 07:44 01/16/19 10:01 Dextrose (Dextrose 50%) 25 ml Q30M PRN IV Hypoglycemia 01/12/19 13:45 02/11/19 13:44 Dextrose (Dextrose 50%) 50 ml Q30M PRN IV Hypoglycemia 01/12/19 13:45 02/11/19 13:44 Dextrose/ Electrolytes 1,000 ml @ 50 mls/hr Q20H IV 01/16/19 16:15 02/15/19 16:14 01/18/19 01:09 Docusate Sodium (Colace) 100 mg TWICE A DAY ORAL 01/15/19 18:00 02/14/19 17:59 01/18/19 10:24 Fentanyl (Duragesic) 1 patch Q72H TDERMAL 01/19/19 12:00 01/26/19 11:59 Folic Acid (Folate) 5 mg DAILY ORAL 01/17/19 09:45 02/16/19 09:44 01/18/19 10:24 Hydromorphone HCl (Dilaudid) 4 mg Q4H PRN ORAL severe breakthrough pain 01/18/19 14:12 01/25/19 14:11 Lactulose (Cephulac) 10 gm THREE TIMES A DAY ORAL 01/16/19 13:00 02/15/19 12:59 01/16/19 17:33 Miscellaneous Medication (fentaNYL Destruction) 1 ea Q72H MISC 01/19/19 12:00 02/18/19 11:59 Naloxone HCl (Narcan) 0.1 mg Q5M PRN IV Sedation scale 3 or 4 01/16/19 12:00 02/15/19 11:59 Ondansetron HCl (Zofran) 4 mg Q6H PRN IVP Nausea & Vomiting 01/12/19 13:45 02/11/19 13:44 01/18/19 12:33 Pantoprazole (Protonix) 40 mg DAILY IVP 01/12/19 16:45 02/11/19 16:44 01/18/19 09:10 Piperacillin Sod/ Tazobactam Sod 3.375 gm/Sodium Chloride 110 ml @ 27.5 mls/hr Q8H IVPB 01/14/19 17:00 01/21/19 16:59 01/18/19 09:10 Polyethylene Glycol (Miralax) 17 gm BEDTIME ORAL 01/16/19 21:00 02/15/19 20:59 Vancomycin HCl (Vanco rx to dose) 1 ea DAILY PRN MISC Per rx protocol 01/14/19 20:30 02/13/19 20:29 Vancomycin HCl 750 mg/Dextrose 275 ml @ 183.333 mls/hr Q12HR@0500,1700 IVPB 01/18/19 05:00 01/23/19 04:59 01/18/19 04:59 Catalina Kirby MD Jan 18, 2019 14:57
[2019-01-18] MEDS: HYDROmorphone 4mg tab ORAL PRN ×2 (15:36→19:49)
[2019-01-18 16:00] VITALS: BP 137/74
--- NOTE | 2019-01-18 17:29 | Hematology/Onc Progress Note ---
Assessment/Plan Assessment/Plan Assessment/Plan # Pancreatic cancer, non-resectable, based on patient's info. Had a Abdominal pelvis CT reviewed 1. Appropriately positioned percutaneous left biliary drain with mild intrahepatic biliary ductal dilatation. 2. Ill-defined pancreatic head/proximal body mass, likely corresponding to stated history of pancreatic neoplasm. Please note evaluation of size and vascular involvement of pancreatic masses is incomplete prior examinations and without multiphasic pancreatic protocol. 3. 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 She has already started rx. --> gi recs noted No plans for GI procedures at this time. --> surgical recommendations, no interventions at this time --> likely to continue chemo and XRT as needed with Dr. Elias Bernal --> CA 19.9 688, in general with this presentation, poor prognosis --> if doesn't get chemo soon, may be hospice candidate # Anemia of myelosuppressive chemo --> okay to continue on chemo at this time --> epo as stimulating factor if drops --> dw patient risks of dvt/VTE # Leukocytosis is likely due to pna --> agree to trend, improved --> abx as per id # Transaminitis --> Trend LFTs --> per gi --> advance diet as tolerated # Dvt ppx scds Appreciate consultation and dw RN Subjective Constitutional: Denies: no symptoms, chills, fever, malaise, weakness, other HEENT: Denies: no symptoms, eye pain, blurred vision, tearing, double vision, ear pain, ear discharge, nose pain, nose congestion, throat pain, throat swelling, mouth pain, mouth swelling, other Cardiovascular: Denies: no symptoms, chest pain, edema, irregular heart rate, lightheadedness, palpitations, syncope, other Respiratory: Denies: no symptoms, cough, shortness of breath, SOB with excertion, SOB at rest, sputum, wheezing, other Gastrointestinal/Abdominal: Denies: no symptoms, abdomen distended, abdominal pain, black stools, tarry stools, blood in stool, constipated, diarrhea, difficulty swallowing, nausea, poor appetite, poor fluid intake, rectal bleeding , vomiting, other Genitourinary: Denies: no symptoms, burning, discharge, frequency, flank pain, hematuria, incontinence, pain, urgency, other Neurologic/Psychiatric: Denies: no symptoms, anxiety, depressed, emotional problems, headache, numbness, paresthesia, pre-existing deficit, seizure, tingling, tremors, weakness, other Allergies: Coded Allergies: No Known Allergies (Unverified , 01/12/19) Subjective 01/13: no events to report, no f/c, no night sweats 01/14: no bleeding, on meds, ivf 01/15: no major changes, dw patient, some minor abd pain 01/18: no major events, drain is to gravity, seen by surg, no bleeidng Objective Objective Current Medications Medications (Trade) Dose Ordered Sig/Zuleima Route PRN Reason Start Time Stop Time Status Last Admin Dose Admin Acetaminophen (Tylenol) 650 mg Q8H PRN ORAL Mild Pain/Temp > 100.5 01/12/19 17:30 02/11/19 17:29 01/13/19 17:27 Azithromycin (Zithromax) 500 mg DAILY ORAL 01/15/19 14:00 01/22/19 13:59 01/18/19 10:27 Bisacodyl (Dulcolax) 10 mg BIDPRN PRN RECTAL Constipation 01/16/19 07:45 02/15/19 07:44 01/16/19 10:01 Dextrose (Dextrose 50%) 25 ml Q30M PRN IV Hypoglycemia 01/12/19 13:45 02/11/19 13:44 Dextrose (Dextrose 50%) 50 ml Q30M PRN IV Hypoglycemia 01/12/19 13:45 02/11/19 13:44 Dextrose/ Electrolytes 1,000 ml @ 50 mls/hr Q20H IV 01/16/19 16:15 02/15/19 16:14 01/18/19 01:09 Docusate Sodium (Colace) 100 mg TWICE A DAY ORAL 01/15/19 18:00 02/14/19 17:59 01/18/19 10:24 Fentanyl (Duragesic) 1 patch Q72H TDERMAL 01/19/19 12:00 01/26/19 11:59 Folic Acid (Folate) 5 mg DAILY ORAL 01/17/19 09:45 02/16/19 09:44 01/18/19 10:24 Hydromorphone HCl (Dilaudid) 4 mg Q4H PRN ORAL severe breakthrough pain 01/18/19 14:12 11/19 14:11 01/18/19 15:36 Lactulose (Cephulac) 10 gm THREE TIMES A DAY ORAL 01/16/19 13:00 02/15/19 12:59 01/16/19 17:33 Miscellaneous Medication (fentaNYL Destruction) 1 ea Q72H MISC 01/19/19 12:00 02/18/19 11:59 Naloxone HCl (Narcan) 0.1 mg Q5M PRN IV Sedation scale 3 or 4 01/16/19 12:00 02/15/19 11:59 Ondansetron HCl (Zofran) 4 mg Q6H PRN IVP Nausea & Vomiting 01/12/19 13:45 02/11/19 13:44 01/18/19 12:33 Pantoprazole (Protonix) 40 mg DAILY IVP 01/12/19 16:45 02/11/19 16:44 01/18/19 09:10 Piperacillin Sod/ Tazobactam Sod 3.375 gm/Sodium Chloride 110 ml @ 27.5 mls/hr Q8H IVPB 01/14/19 17:00 01/21/19 16:59 01/18/19 09:10 Polyethylene Glycol (Miralax) 17 gm BEDTIME ORAL 01/16/19 21:00 02/15/19 20:59 Vancomycin HCl (Vanco rx to dose) 1 ea DAILY PRN MISC Per rx protocol 01/14/19 20:30 02/13/19 20:29 Vancomycin HCl 750 mg/Dextrose 275 ml @ 183.333 mls/hr Q12HR@0500,1700 IVPB 01/18/19 05:00 01/23/19 04:59 01/18/19 17:06 Last 24 Hour Vital Signs Date Time Temp Pulse Resp B/P (MAP) Pulse Ox O2 Delivery O2 Flow Rate FiO2 01/18/19 16:00 98.0 82 18 137/74 (95) 99 01/18/19 12:00 96.6 79 17 137/75 (95) 98 01/18/19 09:36 Room Air 01/18/19 08:00 96.3 74 16 123/68 (86) 97 01/18/19 04:00 98.0 76 18 116/71 (86) 98 10/29/19 01:38 98.1 01/18/19 00:00 98.1 83 18 138/93 (108) 98 01/17/19 21:24 Room Air 01/17/19 20:00 98.4 85 18 134/74 (94) 98 01/17/19 16:00 98.1 18 18 138/89 (105) 96 01/17/19 12:00 97.8 70 17 151/62 (91) 96 01/17/19 09:00 Nasal Cannula 2.0 01/17/19 08:00 98.4 93 19 171/104 (126) 96 01/17/19 04:00 98.0 80 19 140/71 (94) 96 01/17/19 00:00 98.2 98 19 155/87 (109) 96 01/16/19 21:00 Nasal Cannula 2.0 01/16/19 20:00 98.0 102 19 150/96 (114) 96 Intake and Output 01/17/19 01/18/19 19:00 07:00 Intake Total 450 ml 775.000 ml Output Total 800 ml Balance 450 ml -25.000 ml IV Total 450 ml 275.000 ml Other 500 ml Output Urine Total 800 ml # Voids 1 Labs Test 01/16/19 06:40 01/17/19 06:12 01/17/19 21:05 01/18/19 07:00 White Blood Count 22.0 K/UL (4.8-10.8) 20.1 K/UL (4.8-10.8) 18.4 K/UL (4.8-10.8) Red Blood Count 3.71 M/UL (4.20-5.40) 4.04 M/UL (4.20-5.40) 3.67 M/UL (4.20-5.40) Hemoglobin 11.9 G/DL (12.0-16.0) 12.9 G/DL (12.0-16.0) 11.8 G/DL (12.0-16.0) Hematocrit 34.4 % (37.0-47.0) 37.4 % (37.0-47.0) 34.6 % (37.0-47.0) Mean Corpuscular Volume 93 FL (80-99) 93 FL (80-99) 94 FL (80-99) Mean Corpuscular Hemoglobin 32.2 PG (27.0-31.0) 31.9 PG (27.0-31.0) 32.1 PG (27.0-31.0) Mean Corpuscular Hemoglobin Concent 34.7 G/DL (32.0-36.0) 34.4 G/DL (32.0-36.0) 34.0 G/DL (32.0-36.0) Red Cell Distribution Width 12.7 % (11.6-14.8) 12.5 % (11.6-14.8) 12.8 % (11.6-14.8) Platelet Count 268 K/UL (150-450) 290 K/UL (150-450) 338 K/UL (150-450) Mean Platelet Volume 6.7 FL (6.5-10.1) 7.0 FL (6.5-10.1) 6.6 FL (6.5-10.1) Neutrophils (%) (Auto) % (45.0-75.0) % (45.0-75.0) % (45.0-75.0) Lymphocytes (%) (Auto) % (20.0-45.0) % (20.0-45.0) % (20.0-45.0) Monocytes (%) (Auto) % (1.0-10.0) % (1.0-10.0) % (1.0-10.0) Eosinophils (%) (Auto) % (0.0-3.0) % (0.0-3.0) % (0.0-3.0) Basophils (%) (Auto) % (0.0-2.0) % (0.0-2.0) % (0.0-2.0) Differential Total Cells Counted 100 100 100 Neutrophils % (Manual) 92 % (45-75) 86 % (45-75) 92 % (45-75) Lymphocytes % (Manual) 3 % (20-45) 6 % (20-45) 5 % (20-45) Monocytes % (Manual) 4 % (1-10) 2 % (1-10) 3 % (1-10) Eosinophils % (Manual) 0 % (0-3) 0 % (0-3) 0 % (0-3) Basophils % (Manual) 0 % (0-2) 0 % (0-2) 0 % (0-2) Band Neutrophils 1 % (0-8) 6 % (0-8) 0 % (0-8) Platelet Estimate Adequate Adequate Adequate Platelet Morphology Normal Normal Normal Red Blood Cell Morphology Normal Normal Sodium Level 134 MMOL/L (136-145) 134 MMOL/L (136-145) 135 MMOL/L (136-145) Potassium Level 3.0 MMOL/L (3.5-5.1) 3.4 MMOL/L (3.5-5.1) 4.9 MMOL/L (3.5-5.1) Chloride Level 98 MMOL/L (98-107) 96 MMOL/L (98-107) 102 MMOL/L (98-107) Carbon Dioxide Level 28 MMOL/L (21-32) 26 MMOL/L (21-32) 25 MMOL/L (21-32) Anion Gap 8 mmol/L (5-15) 12 mmol/L (5-15) 8 mmol/L (5-15) Blood Urea Nitrogen 5 mg/dL (7-18) 9 mg/dL (7-18) 13 mg/dL (7-18) Creatinine 0.4 MG/DL (0.55-1.30) 0.7 MG/DL (0.55-1.30) 1.1 MG/DL (0.55-1.30) Estimat Glomerular Filtration Rate > 60 mL/min (>60) > 60 mL/min (>60) 50.3 mL/min (>60) Glucose Level 114 MG/DL (74-106) 111 MG/DL (74-106) 150 MG/DL (74-106) Calcium Level 8.3 MG/DL (8.5-10.1) 8.5 MG/DL (8.5-10.1) 8.2 MG/DL (8.5-10.1) Uric Acid 3.0 MG/DL (2.6-7.2) Phosphorus Level 4.0 MG/DL (2.5-4.9) Magnesium Level 2.1 MG/DL (1.8-2.4) Iron Level 14 ug/dL (50-175) Total Iron Binding Capacity 129 ug/dL (250-450) Percent Iron Saturation 11 % (15-50) Unsaturated Iron Binding 115 ug/dL (112-346) Ferritin 860 NG/ML (8-388) Total Bilirubin 1.0 MG/DL (0.2-1.0) Aspartate Amino Transf (AST/SGOT) 23 U/L (15-37) Alanine Aminotransferase (ALT/SGPT) 23 U/L (12-78) Alkaline Phosphatase 150 U/L (46-116) C-Reactive Protein, Quantitative 21.0 mg/dL (0.00-0.90) Pro-B-Type Natriuretic Peptide 921 pg/mL (0-125) Total Protein 5.7 G/DL (6.4-8.2) Albumin 1.7 G/DL (3.4-5.0) Globulin 4.0 g/dL Albumin/Globulin Ratio 0.4 (1.0-2.7) Triglycerides Level 153 MG/DL (30-150) Cholesterol Level 152 MG/DL (< 200) LDL Cholesterol 109 mg/dL (<100) HDL Cholesterol 13 MG/DL (40-60) Cholesterol/HDL Ratio 11.7 (3.3-4.4) Vitamin B12 Level 715 PG/ML (193-986) Folate 4.6 NG/ML (8.6-58.9) Thyroid Stimulating Hormone (TSH) 1.660 uiU/mL (0.358-3.740) Vancomycin Level Trough 27.7 ug/mL (5.0-12.0) Nucleated Red Blood Cells 1 /100 WBC Height (Feet): 5 Height (Inches): 3.00 Weight (Pounds): 132 Roberto Davidson MD Jan 18, 2019 17:29
--- NOTE | 2019-01-18 18:30 | NUR ---
NURSE NOTES: A total of 230cc noted from biliary drain today.Skin care given.call light within reach.
--- NOTE | 2019-01-18 19:46 | NUR ---
HAND-OFF: Report given to Renu BLOOD.
[2019-01-18 20:00] VITALS: BP 145/83
[2019-01-18] MEDS: Miralax 17gm pkt ORAL SCH (20:27)
--- NOTE | 2019-01-18 20:47 | NUR ---
NURSE NOTES: Received patient awake sitting on side of bed, c/o 09/29 pain, will administer pain medication per MD order. VSS. Billiary duct drain noted on abdomen draining green bile. IV access patent running IVF maintenance. Bed low and locked, patient self turning in bed, non slip socks on.
[2019-01-19] VITALS: BP 125/75
[2019-01-19] MEDS: HYDROmorphone 4mg tab ORAL PRN ×6 (00:03→21:43)
[2019-01-19] MEDS: Piperacillin/Tazobactam 3.375 GM in NS 110 ML IVPB SCH ×3 (00:05→17:33)
[2019-01-19] MEDS: D5NS w/KCl 40mEq 1000ml 1,000 ML IV SCH (00:07)
[2019-01-19] MEDS: Simethicone 80mg tab ORAL PRN ×2 (00:10→23:36)
[2019-01-19 04:00] VITALS: BP 132/86
[2019-01-19] MEDS: Vancomycin 750mg/D5W 275ml IVPB SCH ×4 (04:29→16:50)
--- NOTE | 2019-01-19 06:03 | Hematology/Onc Progress Note ---
Assessment/Plan Assessment/Plan Assessment/Plan # Pancreatic cancer, non-resectable, based on patient's info. Had a Abdominal pelvis CT reviewed 1. Appropriately positioned percutaneous left biliary drain with mild intrahepatic biliary ductal dilatation. 2. Ill-defined pancreatic head/proximal body mass, likely corresponding to stated history of pancreatic neoplasm. Please note evaluation of size and vascular involvement of pancreatic masses is incomplete prior examinations and without multiphasic pancreatic protocol. 3. 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 She has already started rx. --> gi recs noted No plans for GI procedures at this time. --> surgical recommendations, no interventions at this time --> likely to continue chemo and XRT as needed with Dr. Elias Bernal --> CA 19.9 688, in general with this presentation, poor prognosis --> if doesn't get chemo soon, likely to deteriorate, may be hospice candidate # Anemia of myelosuppressive chemo --> okay to continue on chemo at this time --> epo as stimulating factor if drops --> dw patient risks of dvt/VTE # Leukocytosis is likely due to pna --> agree to trend, improved --> abx as per id --> wbc trend 22-->20-->18k # Transaminitis --> Trend LFTs --> per gi --> advance diet as tolerated # Dvt ppx scds Appreciate consultation and dw RN Subjective HEENT: Denies: no symptoms, eye pain, blurred vision, tearing, double vision, ear pain, ear discharge, nose pain, nose congestion, throat pain, throat swelling, mouth pain, mouth swelling, other Cardiovascular: Denies: no symptoms, chest pain, edema, irregular heart rate, lightheadedness, palpitations, syncope, other Respiratory: Denies: no symptoms, cough, shortness of breath, SOB with excertion, SOB at rest, sputum, wheezing, other Gastrointestinal/Abdominal: Denies: no symptoms, abdomen distended, abdominal pain, black stools, tarry stools, blood in stool, constipated, diarrhea, difficulty swallowing, nausea, poor appetite, poor fluid intake, rectal bleeding , vomiting, other Genitourinary: Denies: no symptoms, burning, discharge, frequency, flank pain, hematuria, incontinence, pain, urgency, other Hematologic/Lymphatic: Denies: no symptoms, anemia, easy bleeding, easy bruising, adenopathy, other Allergies: Coded Allergies: No Known Allergies (Unverified , 01/12/19) Subjective 01/13: no events to report, no f/c, no night sweats 01/14: no bleeding, on meds, ivf 01/15: no major changes, dw patient, some minor abd pain 01/18: no major events, drain is to gravity, seen by surg, no bleeidng 01/19: awake, alert, getting dressed this am, labs noted Objective Objective Current Medications Medications (Trade) Dose Ordered Sig/Zuleima Route PRN Reason Start Time Stop Time Status Last Admin Dose Admin Acetaminophen (Tylenol) 650 mg Q8H PRN ORAL Mild Pain/Temp > 100.5 01/12/19 17:30 02/11/19 17:29 01/13/19 17:27 Azithromycin (Zithromax) 500 mg DAILY ORAL 01/15/19 14:00 01/22/19 13:59 01/18/19 10:27 Bisacodyl (Dulcolax) 10 mg BIDPRN PRN RECTAL Constipation 01/16/19 07:45 02/15/19 07:44 01/16/19 10:01 Dextrose (Dextrose 50%) 25 ml Q30M PRN IV Hypoglycemia 01/12/19 13:45 02/11/19 13:44 Dextrose (Dextrose 50%) 50 ml Q30M PRN IV Hypoglycemia 01/12/19 13:45 02/11/19 13:44 Dextrose/ Electrolytes 1,000 ml @ 50 mls/hr Q20H IV 01/16/19 16:15 02/15/19 16:14 01/19/19 00:07 Docusate Sodium (Colace) 100 mg TWICE A DAY ORAL 01/15/19 18:00 02/14/19 17:59 01/18/19 18:34 Fentanyl (Duragesic) 1 patch Q72H TDERMAL 01/19/19 12:00 01/26/19 11:59 Folic Acid (Folate) 5 mg DAILY ORAL 01/17/19 09:45 02/16/19 09:44 01/18/19 10:24 Hydromorphone HCl (Dilaudid) 4 mg Q4H PRN ORAL severe breakthrough pain 01/18/19 14:12 01/25/19 14:11 01/19/19 04:29 Lactulose (Cephulac) 10 gm THREE TIMES A DAY ORAL 01/16/19 13:00 02/15/19 12:59 01/16/19 17:33 Miscellaneous Medication (fentaNYL Destruction) 1 ea Q72H MISC 01/19/19 12:00 02/18/19 11:59 Naloxone HCl (Narcan) 0.1 mg Q5M PRN IV Sedation scale 3 or 4 01/16/19 12:00 02/15/19 11:59 Ondansetron HCl (Zofran) 4 mg Q6H PRN IVP Nausea & Vomiting 01/12/19 13:45 02/11/19 13:44 01/18/19 12:33 Pantoprazole (Protonix) 40 mg DAILY IVP 01/12/19 16:45 02/11/19 16:44 01/18/19 09:10 Piperacillin Sod/ Tazobactam Sod 3.375 gm/Sodium Chloride 110 ml @ 27.5 mls/hr Q8H IVPB 01/14/19 17:00 01/21/19 16:59 01/19/19 00:05 Polyethylene Glycol (Miralax) 17 gm BEDTIME ORAL 01/16/19 21:00 02/15/19 20:59 Simethicone (Mylicon) 80 mg BIDPRN PRN ORAL gas 01/18/19 21:45 02/17/19 21:44 01/19/19 00:10 Vancomycin HCl (Vanco rx to dose) 1 ea DAILY PRN MISC Per rx protocol 01/14/19 20:30 02/13/19 20:29 Vancomycin HCl 750 mg/Dextrose 275 ml @ 183.333 mls/hr Q12HR@0500,1700 IVPB 01/18/19 05:00 01/23/19 04:59 01/19/19 04:29 Last 24 Hour Vital Signs Date Time Temp Pulse Resp B/P (MAP) Pulse Ox O2 Delivery O2 Flow Rate FiO2 01/19/19 05:00 98.0 01/19/19 04:00 97.5 77 18 132/86 (101) 96 01/19/19 00:00 98.1 82 18 125/75 (92) 99 01/18/19 21:20 Room Air 01/18/19 20:00 97.3 78 20 145/83 (103) 99 01/18/19 16:00 98.0 82 18 137/74 (95) 99 01/18/19 12:00 96.6 79 17 137/75 (95) 98 01/18/19 09:36 Room Air 01/18/19 08:00 96.3 74 16 123/68 (86) 97 01/18/19 04:00 98.0 76 18 116/71 (86) 98 01/18/19 01:38 98.1 01/18/19 00:00 98.1 83 18 138/93 (108) 98 01/17/19 21:24 Room Air 01/17/19 20:00 98.4 85 18 134/74 (94) 98 01/17/19 16:00 98.1 18 18 138/89 (105) 96 01/17/19 12:00 97.8 70 17 151/62 (91) 96 01/17/19 09:00 Nasal Cannula 2.0 01/17/19 08:00 98.4 93 19 171/104 (126) 96 Intake and Output 01/18/19 01/19/19 19:00 07:00 Intake Total 800 ml 300 ml Output Total 230 ml Balance 570 ml 300 ml Intake Oral 800 ml IV Total 300 ml Other 230 ml # Voids 5 Labs Test 01/16/19 06:40 01/17/19 06:12 01/17/19 21:05 01/18/19 07:00 White Blood Count 22.0 K/UL (4.8-10.8) 20.1 K/UL (4.8-10.8) 18.4 K/UL (4.8-10.8) Red Blood Count 3.71 M/UL (4.20-5.40) 4.04 M/UL (4.20-5.40) 3.67 M/UL (4.20-5.40) Hemoglobin 11.9 G/DL (12.0-16.0) 12.9 G/DL (12.0-16.0) 11.8 G/DL (12.0-16.0) Hematocrit 34.4 % (37.0-47.0) 37.4 % (37.0-47.0) 34.6 % (37.0-47.0) Mean Corpuscular Volume 93 FL (80-99) 93 FL (80-99) 94 FL (80-99) Mean Corpuscular Hemoglobin 32.2 PG (27.0-31.0) 31.9 PG (27.0-31.0) 32.1 PG (27.0-31.0) Mean Corpuscular Hemoglobin Concent 34.7 G/DL (32.0-36.0) 34.4 G/DL (32.0-36.0) 34.0 G/DL (32.0-36.0) Red Cell Distribution Width 12.7 % (11.6-14.8) 12.5 % (11.6-14.8) 12.8 % (11.6-14.8) Platelet Count 268 K/UL (150-450) 290 K/UL (150-450) 338 K/UL (150-450) Mean Platelet Volume 6.7 FL (6.5-10.1) 7.0 FL (6.5-10.1) 6.6 FL (6.5-10.1) Neutrophils (%) (Auto) % (45.0-75.0) % (45.0-75.0) % (45.0-75.0) Lymphocytes (%) (Auto) % (20.0-45.0) % (20.0-45.0) % (20.0-45.0) Monocytes (%) (Auto) % (1.0-10.0) % (1.0-10.0) % (1.0-10.0) Eosinophils (%) (Auto) % (0.0-3.0) % (0.0-3.0) % (0.0-3.0) Basophils (%) (Auto) % (0.0-2.0) % (0.0-2.0) % (0.0-2.0) Differential Total Cells Counted 100 100 100 Neutrophils % (Manual) 92 % (45-75) 86 % (45-75) 92 % (45-75) Lymphocytes % (Manual) 3 % (20-45) 6 % (20-45) 5 % (20-45) Monocytes % (Manual) 4 % (1-10) 2 % (1-10) 3 % (1-10) Eosinophils % (Manual) 0 % (0-3) 0 % (0-3) 0 % (0-3) Basophils % (Manual) 0 % (0-2) 0 % (0-2) 0 % (0-2) Band Neutrophils 1 % (0-8) 6 % (0-8) 0 % (0-8) Platelet Estimate Adequate Adequate Adequate Platelet Morphology Normal Normal Normal Red Blood Cell Morphology Normal Normal Sodium Level 134 MMOL/L (136-145) 134 MMOL/L (136-145) 135 MMOL/L (136-145) Potassium Level 3.0 MMOL/L (3.5-5.1) 3.4 MMOL/L (3.5-5.1) 4.9 MMOL/L (3.5-5.1) Chloride Level 98 MMOL/L (98-107) 96 MMOL/L (98-107) 102 MMOL/L (98-107) Carbon Dioxide Level 28 MMOL/L (21-32) 26 MMOL/L (21-32) 25 MMOL/L (21-32) Anion Gap 8 mmol/L (5-15) 12 mmol/L (5-15) 8 mmol/L (5-15) Blood Urea Nitrogen 5 mg/dL (7-18) 9 mg/dL (7-18) 13 mg/dL (7-18) Creatinine 0.4 MG/DL (0.55-1.30) 0.7 MG/DL (0.55-1.30) 1.1 MG/DL (0.55-1.30) Estimat Glomerular Filtration Rate > 60 mL/min (>60) > 60 mL/min (>60) 50.3 mL/min (>60) Glucose Level 114 MG/DL (74-106) 111 MG/DL (74-106) 150 MG/DL (74-106) Calcium Level 8.3 MG/DL (8.5-10.1) 8.5 MG/DL (8.5-10.1) 8.2 MG/DL (8.5-10.1) Uric Acid 3.0 MG/DL (2.6-7.2) Phosphorus Level 4.0 MG/DL (2.5-4.9) Magnesium Level 2.1 MG/DL (1.8-2.4) Iron Level 14 ug/dL (50-175) Total Iron Binding Capacity 129 ug/dL (250-450) Percent Iron Saturation 11 % (15-50) Unsaturated Iron Binding 115 ug/dL (112-346) Ferritin 860 NG/ML (8-388) Total Bilirubin 1.0 MG/DL (0.2-1.0) Aspartate Amino Transf (AST/SGOT) 23 U/L (15-37) Alanine Aminotransferase (ALT/SGPT) 23 U/L (12-78) Alkaline Phosphatase 150 U/L (46-116) C-Reactive Protein, Quantitative 21.0 mg/dL (0.00-0.90) Pro-B-Type Natriuretic Peptide 921 pg/mL (0-125) Total Protein 5.7 G/DL (6.4-8.2) Albumin 1.7 G/DL (3.4-5.0) Globulin 4.0 g/dL Albumin/Globulin Ratio 0.4 (1.0-2.7) Triglycerides Level 153 MG/DL (30-150) Cholesterol Level 152 MG/DL (< 200) LDL Cholesterol 109 mg/dL (<100) HDL Cholesterol 13 MG/DL (40-60) Cholesterol/HDL Ratio 11.7 (3.3-4.4) Vitamin B12 Level 715 PG/ML (193-986) Folate 4.6 NG/ML (8.6-58.9) Thyroid Stimulating Hormone (TSH) 1.660 uiU/mL (0.358-3.740) Vancomycin Level Trough 27.7 ug/mL (5.0-12.0) Nucleated Red Blood Cells 1 /100 WBC Height (Feet): 5 Height (Inches): 3.00 Weight (Pounds): 132 Roberto Davidson MD Jan 19, 2019 06:03
[2019-01-19 07:09] LABS: ANION GAP 8 mmol/L (5-15); BLOOD UREA NITROGEN 12 mg/dL (7-18); CALCIUM 8.8 MG/DL (8.5-10.1); CARBON DIOXIDE 27 MMOL/L (21-32); CHLORIDE 101 MMOL/L (98-107); CREATININE 1.4 MG/DL (0.55-1.30); POTASSIUM 5.2 MMOL/L (3.5-5.1); SODIUM 136 MMOL/L (136-145)
--- NOTE | 2019-01-19 07:11 | NUR ---
HAND-OFF: Report given to CAITIE Rolle.
[2019-01-19 07:12] LABS: HEMATOCRIT 37.9 % (37.0-47.0); HEMOGLOBIN 12.9 G/DL (12.0-16.0); MEAN CORPUSCULAR VOLUME 95 FL (80-99); PLATELET COUNT 453 K/UL (150-450); RED BLOOD COUNT 3.98 M/UL (4.20-5.40); RED CELL DISTRIBUTION WIDTH 13.2 % (11.6-14.8)
[2019-01-19 07:28] LABS: WHITE BLOOD COUNT 25.4 K/UL (4.8-10.8)
--- NOTE | 2019-01-19 07:55 | NUR ---
NURSE NOTES: received report from CAITIE Catherine. patient in bed. alert oriented. verbally responsive. no respiratory distress noted. mild pain on abd area. med due on 829. biliary tube draining. IV on 24 running vanco. WBC 25.[address] Aldridge and waiting further order. bed in the lowest position. call light within reach. will continue to provide plan of care
[2019-01-19 08:34] VITALS: BP 129/80
--- NOTE | 2019-01-19 08:45 | General Progress Note ---
Assessment/Plan Assessment/Plan: (1) Intractable abdominal pain (2) Pancreatic cancer We will continue the Dilaudid and Fentanyl patch D/w Dr. Gonzales and he concurred. Subjective Date patient seen: Jan 19, 2019 Time patient seen: 08:00 - am Allergies: Coded Allergies: No Known Allergies (Unverified , 01/12/19) Subjective REVIEW OF SYSTEMS: Denies rash, fever, chills, sweating, dizziness, drowsiness, blurred vision, sore throat, change in weight. No shortness of breath or chest pain. No bowel or bladder incontinence. She is complaining of abdominal pain. SUBJECTIVE: Patient is in bed and pain is at a moderate level tolerated on the Fentanyl patch and Dilaudid tabs 4 doses in the last 24hrs. No new complaints at this time. Objective Last 24 Hour Vital Signs Date Time Temp Pulse Resp B/P (MAP) Pulse Ox O2 Delivery O2 Flow Rate FiO2 01/19/19 08:34 97.3 20 129/80 (96) 100 01/19/19 05:00 98.0 01/19/19 04:00 97.5 77 18 132/86 (101) 96 01/19/19 00:00 98.1 82 18 125/75 (92) 99 01/18/19 21:20 Room Air 01/18/19 20:00 97.3 78 20 145/83 (103) 99 01/18/19 16:00 98.0 82 18 137/74 (95) 99 01/18/19 12:00 96.6 79 17 137/75 (95) 98 01/18/19 09:36 Room Air Intake and Output 01/18/19 01/19/19 18:59 06:59 Intake Total 800 ml 700 ml Output Total 230 ml 450 ml Balance 570 ml 250 ml Intake Oral 800 ml 350 ml IV Total 350 ml Other 230 ml 450 ml # Voids 5 4 Laboratory Tests 01/19/19 06:15: White Blood Count 25.4*H, Red Blood Count 3.98L, Hemoglobin 12.9, Hematocrit 37.9, Mean Corpuscular Volume 95, Mean Corpuscular Hemoglobin 32.3H, Mean Corpuscular Hemoglobin Concent 33.9, Red Cell Distribution Width 13.2, Platelet Count 453H, Mean Platelet Volume 6.4L, Neutrophils (%) (Auto) , Lymphocytes (%) (Auto) , Monocytes (%) (Auto) , Eosinophils (%) (Auto) , Basophils (%) (Auto) , Neutrophils % (Manual) [Pending], Lymphocytes % (Manual) [Pending], Platelet Estimate [Pending], Platelet Morphology [Pending], Sodium Level 136, Potassium Level 5.2H, Chloride Level 101, Carbon Dioxide Level 27, Anion Gap 8, Blood Urea Nitrogen 12, Creatinine 1.4H, Estimat Glomerular Filtration Rate 38.1, Glucose Level 90, Calcium Level 8.8 Height (Feet): 5 Height (Inches): 3.00 Weight (Pounds): 130 Objective GENERAL: Alert, awake, and oriented. LUNGS: Clear bilaterally. HEART: S1, S2 regular. ABDOMEN: Tenderness to palpation with biliary stent noted. BACK: Range of motion is decreased in flexion, extension. EXTREMITIES: No cyanosis. No clubbing. No edema. NEURO: No changes. Doug Reid Jan 19, 2019 08:45
--- NOTE | 2019-01-19 09:06 | General Progress Note ---
Assessment/Plan Problem List: (1) SOB (shortness of breath) ICD Codes: R06.02 - Shortness of breath SNOMED: 196495858 (2) Nausea & vomiting ICD Codes: R11.2 - Nausea with vomiting, unspecified SNOMED: 49793225 (3) Malnutrition ICD Codes: E46 - Unspecified protein-calorie malnutrition SNOMED: 13212694 (4) UTI (urinary tract infection) ICD Codes: N39.0 - Urinary tract infection, site not specified SNOMED: 02413988 (5) Abdominal pain ICD Codes: R10.9 - Unspecified abdominal pain SNOMED: 32679461 (6) Biliary drain displacement ICD Codes: T85.520A - Displacement of bile duct prosthesis, initial encounter SNOMED: 314312229 (7) Pancreatic cancer ICD Codes: C25.9 - Malignant neoplasm of pancreas, unspecified SNOMED: 285513563 Status: unchanged Assessment/Plan: pt diet pain control abx cbc bmp am dc plan snf Subjective Constitutional: Reports: weakness Allergies: Coded Allergies: No Known Allergies (Unverified , 01/12/19) All Systems: reviewed and negative except above Subjective o2nc sl nausea abd pain Objective Last 24 Hour Vital Signs Date Time Temp Pulse Resp B/P (MAP) Pulse Ox O2 Delivery O2 Flow Rate FiO2 01/19/19 08:44 Nasal Cannula 1.0 01/19/19 08:43 77 01/19/19 08:34 97.3 20 129/80 (96) 100 01/19/19 05:00 98.0 01/19/19 04:00 97.5 77 18 132/86 (101) 96 01/19/19 00:00 98.1 82 18 125/75 (92) 99 01/18/19 21:20 Room Air 01/18/19 20:00 97.3 78 20 145/83 (103) 99 01/18/19 16:00 98.0 82 18 137/74 (95) 99 01/18/19 12:00 96.6 79 17 137/75 (95) 98 01/18/19 09:36 Room Air Intake and Output 01/18/19 01/19/19 18:59 06:59 Intake Total 800 ml 700 ml Output Total 230 ml 450 ml Balance 570 ml 250 ml Intake Oral 800 ml 350 ml IV Total 350 ml Other 230 ml 450 ml # Voids 5 4 Laboratory Tests 10/30/19 06:15: White Blood Count 25.4*H, Red Blood Count 3.98L, Hemoglobin 12.9, Hematocrit 37.9, Mean Corpuscular Volume 95, Mean Corpuscular Hemoglobin 32.3H, Mean Corpuscular Hemoglobin Concent 33.9, Red Cell Distribution Width 13.2, Platelet Count 453H, Mean Platelet Volume 6.4L, Neutrophils (%) (Auto) , Lymphocytes (%) (Auto) , Monocytes (%) (Auto) , Eosinophils (%) (Auto) , Basophils (%) (Auto) , Differential Total Cells Counted 100, Neutrophils % (Manual) 85H, Lymphocytes % (Manual) 5L, Monocytes % (Manual) 5, Eosinophils % (Manual) 2, Basophils % ( Manual) 0, Band Neutrophils 3, Platelet Estimate Adequate, Platelet Morphology Normal, Red Blood Cell Morphology Normal, Sodium Level 136, Potassium Level 5.2H , Chloride Level 101, Carbon Dioxide Level 27, Anion Gap 8, Blood Urea Nitrogen 12, Creatinine 1.4H, Estimat Glomerular Filtration Rate 38.1, Glucose Level 90, Calcium Level 8.8 Height (Feet): 5 Height (Inches): 3.00 Weight (Pounds): 130 General Appearance: lethargic EENT: normal ENT inspection Neck: normal alignment Cardiovascular: normal peripheral pulses, normal rate, regular rhythm Respiratory/Chest: chest wall non-tender, lungs clear, normal breath sounds Abdomen: normal bowel sounds, non tender, soft Extremities: normal inspection Edema: no edema noted Arm (L), no edema noted Arm (R), no edema noted Leg (L), no edema noted Leg (R), no edema noted Pedal (L), no edema noted Pedal (R), no edema noted Generalized Neurologic: responsive, motor weakness Skin: normal pigmentation, warm/dry Elvis Luke DO Jan 19, 2019 09:06
[2019-01-19] MEDS: Lactulose 10gm/15ml UDC ORAL SCH ×3 (09:14→18:18)
[2019-01-19] MEDS: Docusate 100mg cap ORAL SCH ×2 (09:15→18:18)
[2019-01-19] MEDS: Azithromycin 250mg tab ORAL SCH (09:17)
[2019-01-19] MEDS: Pantoprazole Inj IVP SCH (09:47)
--- NOTE | 2019-01-19 10:53 | General Progress Note ---
Assessment/Plan Status: unchanged Assessment/Plan: (1) Pancreatic cancer ICD Codes: C25.9 - Malignant neoplasm of pancreas, unspecified SNOMED: 153149933 (2) Biliary drain displacement ICD Codes: T85.520A - Displacement of bile duct prosthesis, initial encounter SNOMED: 854506873 (3) Abdominal pain ICD Codes: R10.9 - Unspecified abdominal pain SNOMED: 30579831 Status: unchanged Status Narrative Discussed with Dr. Rocha Assessment/Plan Abdominal pelvis CT reviewed 1. Appropriately positioned percutaneous left biliary drain with mild intrahepatic biliary ductal dilatation. 2. Ill-defined pancreatic head/proximal body mass, likely corresponding to stated history of pancreatic neoplasm. Please note evaluation of size and vascular involvement of pancreatic masses is incomplete prior examinations and without multiphasic pancreatic protocol. 3. 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 SMV confluence is not visualized. 4. Color wall thickening with pericholecystic fluid; in the absence of distended gallbladder, these findings are critical for acute pancreatitis and clinical correlation is recommended. No plans for GI procedures at this time. Symptomatic treatment surgical recommendations, no interventions at this time Follow-up pain management recommendations ppi Trend LFTs We will follow-up Subjective ROS Limited/Unobtainable: Yes Allergies: Coded Allergies: No Known Allergies (Unverified , 01/12/19) Subjective constipated Objective Last 24 Hour Vital Signs Date Time Temp Pulse Resp B/P (MAP) Pulse Ox O2 Delivery O2 Flow Rate FiO2 01/19/19 08:44 Nasal Cannula 1.0 01/19/19 08:43 77 01/19/19 08:34 97.3 20 129/80 (96) 100 01/19/19 05:00 98.0 01/19/19 04:00 97.5 77 18 132/86 (101) 96 01/19/19 00:00 98.1 82 18 125/75 (92) 99 01/18/19 21:20 Room Air 01/18/19 20:00 97.3 78 20 145/83 (103) 99 01/18/19 16:00 98.0 82 18 137/74 (95) 99 01/18/19 12:00 96.6 79 17 137/75 (95) 98 Intake and Output 01/18/19 01/19/19 18:59 06:59 Intake Total 800 ml 700 ml Output Total 230 ml 450 ml Balance 570 ml 250 ml Intake Oral 800 ml 350 ml IV Total 350 ml Other 230 ml 450 ml # Voids 5 4 Laboratory Tests 01/19/19 06:15: White Blood Count 25.4*H, Red Blood Count 3.98L, Hemoglobin 12.9, Hematocrit 37.9, Mean Corpuscular Volume 95, Mean Corpuscular Hemoglobin 32.3H, Mean Corpuscular Hemoglobin Concent 33.9, Red Cell Distribution Width 13.2, Platelet Count 453H, Mean Platelet Volume 6.4L, Neutrophils (%) (Auto) , Lymphocytes (%) (Auto) , Monocytes (%) (Auto) , Eosinophils (%) (Auto) , Basophils (%) (Auto) , Differential Total Cells Counted 100, Neutrophils % (Manual) 85H, Lymphocytes % (Manual) 5L, Monocytes % (Manual) 5, Eosinophils % (Manual) 2, Basophils % ( Manual) 0, Band Neutrophils 3, Platelet Estimate Adequate, Platelet Morphology Normal, Red Blood Cell Morphology Normal, Sodium Level 136, Potassium Level 5.2H , Chloride Level 101, Carbon Dioxide Level 27, Anion Gap 8, Blood Urea Nitrogen 12, Creatinine 1.4H, Estimat Glomerular Filtration Rate 38.1, Glucose Level 90, Calcium Level 8.8 Height (Feet): 5 Height (Inches): 3.00 Weight (Pounds): 130 General Appearance: no apparent distress EENT: normal ENT inspection Neck: supple Cardiovascular: normal rate Respiratory/Chest: decreased breath sounds Abdomen: normal bowel sounds, non tender, soft Extremities: non-tender Indra Rocha MD Jan 19, 2019 10:53
--- NOTE | 2019-01-19 11:37 | NUR ---
RD ASSESSMENT & RECOMMENDATIONS SEE CARE ACTIVITY FOR COMPLETE ASSESSMENT DAILY ESTIMATED NEEDS: Needs based on CA/ 59kg 25-30 kcals/kg 2105-3336 total kcals 1-1.5 g protein/kg 59-89 g total protein 25-30 mL/kg 7358-9326 total fluid mLs NUTRITION DIAGNOSIS: Increased kcal/prot needs R/T catabolic dx as evidenced by dx of pancreatitis CA, s/p recent chemo, CA 19-9 level 688 CURRENT DIET:REGULAR PO DIET RECOMMENDATIONS: Liberalized REGULAR diet as tolerated, rec small frequent meals ADDITIONAL RECOMMENDATIONS: * Standing weight for accurate CBW * Ensure CLEAR TID w/ meals * Rec small frequent meals: -> snacks TID in b/w meals * DC kcl from IVF : elev K 5.2
[2019-01-19 11:42] VITALS: BP 153/87
[2019-01-19] MEDS: fentaNYL Destruction MISC SCH (12:09)
--- NOTE | 2019-01-19 12:58 | Nephrology Progress Note ---
Assessment/Plan Problem List: (1) Electrolyte abnormality (2) Pancreatic cancer (3) Biliary drain displacement (4) Abdominal pain (5) Malnutrition Assessment HypoKalemia HypoNatremia Abdominal pain. Nausea. Vomiting. UTI. Pancreatic cancer. Biliary drain displacement Malnutrition. Anemia Plan DXC IV K , check labs change IV to isotonic solution monitor lytes start PO Folic acid Subjective ROS Limited/Unobtainable: No Constitutional: Reports: malaise, weakness Objective Objective Last 24 Hour Vital Signs Date Time Temp Pulse Resp B/P (MAP) Pulse Ox O2 Delivery O2 Flow Rate FiO2 01/19/19 11:42 97.3 84 19 153/87 (109) 96 01/19/19 08:44 Nasal Cannula 1.0 01/19/19 08:43 77 01/19/19 08:34 97.3 20 129/80 (96) 100 01/19/19 05:00 98.0 01/19/19 04:00 97.5 77 18 132/86 (101) 96 01/19/19 00:00 98.1 82 18 125/75 (92) 99 01/18/19 21:20 Room Air 01/18/19 20:00 97.3 78 20 145/83 (103) 99 01/18/19 16:00 98.0 82 18 137/74 (95) 99 Intake and Output 01/18/19 01/19/19 18:59 06:59 Intake Total 800 ml 700 ml Output Total 230 ml 450 ml Balance 570 ml 250 ml Intake Oral 800 ml 350 ml IV Total 350 ml Other 230 ml 450 ml # Voids 5 4 Laboratory Tests 01/19/19 06:15: White Blood Count 25.4*H, Red Blood Count 3.98L, Hemoglobin 12.9, Hematocrit 37.9, Mean Corpuscular Volume 95, Mean Corpuscular Hemoglobin 32.3H, Mean Corpuscular Hemoglobin Concent 33.9, Red Cell Distribution Width 13.2, Platelet Count 453H, Mean Platelet Volume 6.4L, Neutrophils (%) (Auto) , Lymphocytes (%) (Auto) , Monocytes (%) (Auto) , Eosinophils (%) (Auto) , Basophils (%) (Auto) , Differential Total Cells Counted 100, Neutrophils % (Manual) 85H, Lymphocytes % (Manual) 5L, Monocytes % (Manual) 5, Eosinophils % (Manual) 2, Basophils % ( Manual) 0, Band Neutrophils 3, Platelet Estimate Adequate, Platelet Morphology Normal, Red Blood Cell Morphology Normal, Sodium Level 136, Potassium Level 5.2H , Chloride Level 101, Carbon Dioxide Level 27, Anion Gap 8, Blood Urea Nitrogen 12, Creatinine 1.4H, Estimat Glomerular Filtration Rate 38.1, Glucose Level 90, Calcium Level 8.8 Height (Feet): 5 Height (Inches): 3.00 Weight (Pounds): 130 General Appearance: no apparent distress Cardiovascular: normal rate Abdomen: distended Objective no change Kapil Turcios MD Jan 19, 2019 12:58
--- NOTE | 2019-01-19 12:59 | NUR ---
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 97.3 HR 84 RR 19 B/P 153/87 1 LITER NC WBC 25.4 IS: VANCO IV IVF D5KCL @ 50ML/HR ZOSYN IV ZITHROMAX PO MED/SURG STATUS
[2019-01-19] MEDS: D5NS 1,000 ML IV SCH (13:13)
--- NOTE | 2019-01-19 15:06 | NUR ---
NURSE NOTES: patient c/o pain on abd after fentanyl patch and dilaudid. notified ORTIZ Reid and received order start neurontin 300mg po tid. order noted and carried out.
--- NOTE | 2019-01-19 15:45 | Infectious Diseases Prog Note ---
Assessment/Plan Assessment/Plan Sepsis- r/o bacteremia 01/14 bcx ngtd PNA, CAP -CXR: Patchy consolidation in the right lower lung, concerning for pneumonia. Mild pulmonary vascular congestion. -flu swab negative urine legionella antigen negative Abdominal pain Pancreatitis? lipase negative CT abd/p: Appropriately positioned percutaneous left biliary drain with mild intrahepatic biliary ductal dilatation. Ill-defined pancreatic head/ proximal body mass, likely corresponding to stated history of pancreatic neoplasm. Please note evaluation of size and vascular involvement of pancreatic masses is incomplete prior examinations and without multiphasic pancreatic protocol. 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 SMV confluence is not visualized. Gallbladder wall thickening with pericholecystic fluid; in the absence of distended gallbladder, these findings are critical for acute pancreatitis and clinical correlation is recommended. 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 -sp 1st chemotherapy treatment 01/10/19 tobacco abuse Plan: -Cont empiric Zosyn and IV Vancomycin #6 -cont Azithromycin #5/7 for mycoplasma coverage 01/17 DC Tamiflu #2 repeat CBC, CMP. Abd US. -f/u cx -Monitor CBC/CMP, temperatures -f/u Bcx x2 -aspiration precautions Thank you for this consultation. Will continue to follow along with you. Subjective Allergies: Coded Allergies: No Known Allergies (Unverified , 01/12/19) Subjective Afebrile. Leukocytosis worse Pt reports worsened abdominal pain today. Pressure. No chills, fever, cough, sob, dysuria, flank pain, suprapubic pain. reports constipated. Nurse reports increased output from drain Objective Vital Signs Last 24 Hour Vital Signs Date Time Temp Pulse Resp B/P (MAP) Pulse Ox O2 Delivery O2 Flow Rate FiO2 01/19/19 11:42 97.3 84 19 153/87 (109) 96 01/19/19 08:44 Nasal Cannula 1.0 01/19/19 08:43 77 01/19/19 08:34 97.3 20 129/80 (96) 100 01/19/19 05:00 98.0 01/19/19 04:00 97.5 77 18 132/86 (101) 96 01/19/19 00:00 98.1 82 18 125/75 (92) 99 01/18/19 21:20 Room Air 10/29/19 20:00 97.3 78 20 145/83 (103) 99 01/18/19 16:00 98.0 82 18 137/74 (95) 99 Height (Feet): 5 Height (Inches): 3.00 Weight (Pounds): 130 Objective Gen: NAD CV: RRR Resp: RRR Abd: hypoactive BS+. Diffusely TTP but worse RUQ. Ext: no edema Neuro: alert. Laboratory Tests Test 01/19/19 06:15 White Blood Count 25.4 K/UL (4.8-10.8) *H Red Blood Count 3.98 M/UL (4.20-5.40) L Hemoglobin 12.9 G/DL (12.0-16.0) Hematocrit 37.9 % (37.0-47.0) Mean Corpuscular Volume 95 FL (80-99) Mean Corpuscular Hemoglobin 32.3 PG (27.0-31.0) H Mean Corpuscular Hemoglobin Concent 33.9 G/DL (32.0-36.0) Red Cell Distribution Width 13.2 % (11.6-14.8) Platelet Count 453 K/UL (150-450) H Mean Platelet Volume 6.4 FL (6.5-10.1) L Neutrophils (%) (Auto) % (45.0-75.0) Lymphocytes (%) (Auto) % (20.0-45.0) Monocytes (%) (Auto) % (1.0-10.0) Eosinophils (%) (Auto) % (0.0-3.0) Basophils (%) (Auto) % (0.0-2.0) Differential Total Cells Counted 100 Neutrophils % (Manual) 85 % (45-75) H Lymphocytes % (Manual) 5 % (20-45) L Monocytes % (Manual) 5 % (1-10) Eosinophils % (Manual) 2 % (0-3) Basophils % (Manual) 0 % (0-2) Band Neutrophils 3 % (0-8) Platelet Estimate Adequate Platelet Morphology Normal Red Blood Cell Morphology Normal Sodium Level 136 MMOL/L (136-145) Potassium Level 5.2 MMOL/L (3.5-5.1) H Chloride Level 101 MMOL/L (98-107) Carbon Dioxide Level 27 MMOL/L (21-32) Anion Gap 8 mmol/L (5-15) Blood Urea Nitrogen 12 mg/dL (7-18) Creatinine 1.4 MG/DL (0.55-1.30) H Estimat Glomerular Filtration Rate 38.1 mL/min (>60) Glucose Level 90 MG/DL (74-106) Calcium Level 8.8 MG/DL (8.5-10.1) Current Medications Medications (Trade) Dose Ordered Sig/Zuleima Route PRN Reason Start Time Stop Time Status Last Admin Dose Admin Acetaminophen (Tylenol) 650 mg Q8H PRN ORAL Mild Pain/Temp > 100.5 01/12/19 17:30 02/11/19 17:29 01/13/19 17:27 Azithromycin (Zithromax) 500 mg DAILY ORAL 01/15/19 14:00 01/22/19 13:59 01/19/19 09:17 Bisacodyl (Dulcolax) 10 mg BIDPRN PRN RECTAL Constipation 01/16/19 07:45 02/15/19 07:44 01/16/19 10:01 Dextrose (Dextrose 50%) 25 ml Q30M PRN IV Hypoglycemia 01/12/19 13:45 02/11/19 13:44 Dextrose (Dextrose 50%) 50 ml Q30M PRN IV Hypoglycemia 01/12/19 13:45 02/11/19 13:44 Dextrose/Sodium Chloride 1,000 ml @ 50 mls/hr Q20H IV 01/19/19 12:57 02/18/19 12:56 01/19/19 13:13 Docusate Sodium (Colace) 100 mg TWICE A DAY ORAL 01/15/19 18:00 02/14/19 17:59 01/19/19 09:15 Fentanyl (Duragesic) 1 patch Q72H TDERMAL 01/19/19 12:00 01/26/19 11:59 01/19/19 12:08 Folic Acid (Folate) 5 mg DAILY ORAL 01/17/19 09:45 02/16/19 09:44 01/19/19 09:16 Gabapentin (Neurontin) 300 mg THREE TIMES A DAY ORAL 01/19/19 18:00 02/18/19 17:59 Hydromorphone HCl (Dilaudid) 4 mg Q4H PRN ORAL severe breakthrough pain 01/18/19 14:12 01/25/19 14:11 01/19/19 13:13 Lactulose (Cephulac) 10 gm THREE TIMES A DAY ORAL 01/16/19 13:00 02/15/19 12:59 01/19/19 13:10 Miscellaneous Medication (fentaNYL Destruction) 1 ea Q72H MISC 01/19/19 12:00 02/18/19 11:59 01/19/19 12:09 Naloxone HCl (Narcan) 0.1 mg Q5M PRN IV Sedation scale 3 or 4 01/16/19 12:00 02/15/19 11:59 Ondansetron HCl (Zofran) 4 mg Q6H PRN IVP Nausea & Vomiting 01/12/19 13:45 02/11/19 13:44 01/19/19 13:56 Pantoprazole (Protonix) 40 mg DAILY IVP 01/12/19 16:45 02/11/19 16:44 01/19/19 09:47 Piperacillin Sod/ Tazobactam Sod 3.375 gm/Sodium Chloride 110 ml @ 27.5 mls/hr Q8H IVPB 01/14/19 17:00 01/21/19 16:59 01/19/19 09:47 Polyethylene Glycol (Miralax) 17 gm BEDTIME ORAL 01/16/19 21:00 02/15/19 20:59 Simethicone (Mylicon) 80 mg BIDPRN PRN ORAL gas 01/18/19 21:45 02/17/19 21:44 01/19/19 00:10 Vancomycin HCl (Vanco rx to dose) 1 ea DAILY PRN MISC Per rx protocol 01/14/19 20:30 02/13/19 20:29 Vancomycin HCl 750 mg/Dextrose 275 ml @ 183.333 mls/hr Q12HR@0500,1700 IVPB 01/18/19 05:00 01/23/19 04:59 01/19/19 04:29 Catalina Kirby MD Jan 19, 2019 15:44
[2019-01-19] MEDS ORDERED: NS 500ML ONE (15:46)
[2019-01-19 16:00] VITALS: BP 167/105
--- NOTE | 2019-01-19 16:42 | NUR ---
*-* INSURANCE *-* ALL AVAILABLE CLINICALS HAVE BEEN FAXED TO: REF#[id number] - FOR TRACKING PURPOSES THIS IS SHARED RISK NO CM ASSIGNED PH#[phone] FAX#[phone] REVIEWS/CLINICALS & [facility] TRACKING#[id number] CM: TAMMY #[phone] EXT [id number] FAX#[phone] REVIEWS/CLINICALS TRIED CALLING [facility] WITH NO LUCK LEFT A SERAFIN FOR NCM:TAMMY TO CALL US TO CONFIRM HE DOMÍNGUEZ BEEN RECEIVING CLINICALS.
--- NOTE | 2019-01-19 17:04 | Diagnostic Imaging Report ---
Indication: Abdominal pain Technique: Grayscale and duplex Doppler imaging of the abdomen performed. Comparison: CT abdomen 01/12/2019, ultrasound abdomen 01/14/2019 Findings: Liver is heterogeneous in appearance. There is a trace amount of free fluid present. There is an abnormal area of low echogenicity in the right lobe posteriorly. Evaluation with contrast CT is recommended. The main portal vein is abnormal with without a distinct main portal vein with multiple tiny vessels probably representing cavernous transformation. There is a percutaneous drainage catheter within the liver. There is mild pelvocaliectasis bilaterally. Spleen is normal size. Much of the pancreas aorta and IVC are obscured. IMPRESSION: Transhepatic biliary drain noted. 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 Abnormal liver with area of peripheral hypoechogenicity along the posterior right lobe margin. Suggest further evaluation with contrast CT. Obscured pancreas and aorta due to bowel gas. Trace ascites
[2019-01-19 17:07] LABS: HEMATOCRIT 38.8 % (37.0-47.0); HEMOGLOBIN 13.5 G/DL (12.0-16.0); MEAN CORPUSCULAR VOLUME 93 FL (80-99); PLATELET COUNT 473 K/UL (150-450); RED BLOOD COUNT 4.19 M/UL (4.20-5.40); RED CELL DISTRIBUTION WIDTH 12.2 % (11.6-14.8)
[2019-01-19 17:12] LABS: WHITE BLOOD COUNT 27.2 K/UL (4.8-10.8)
[2019-01-19 17:27] LABS: ALANINE AMINOTRANSFERASE 19 U/L (12-78); ALBUMIN 2.1 G/DL (3.4-5.0); ALBUMIN/GLOBULIN RATIO 0.5 (1.0-2.7); ALKALINE PHOSPHATASE 151 U/L (46-116); ANION GAP 9 mmol/L (5-15); ASPARTATE AMINO TRANSFERASE 19 U/L (15-37); BLOOD UREA NITROGEN 13 mg/dL (7-18); CALCIUM 8.7 MG/DL (8.5-10.1); CARBON DIOXIDE 24 MMOL/L (21-32); CHLORIDE 101 MMOL/L (98-107); CREATININE 1.3 MG/DL (0.55-1.30); POTASSIUM 4.1 MMOL/L (3.5-5.1); SODIUM 134 MMOL/L (136-145)
--- NOTE | 2019-01-19 19:30 | NUR ---
NURSE NOTES: Receive a report from CAITIE Rolle. Round is done. Pt is awake and alert, sitting on the chair. No acute distress noted. But still noted abdominal pain. Pain medication has been taken and waiting for next due. Fentanyl patch is on left upper chest. Resp is even and non labored. Apply hot bags for pain reliever. PTBD inserted state and greenish cloudy bile drained with natural gravity. On ATB treatment. No chilling or febrile sensation noted. Noted general weakness. Call light within reach. Will continue to monitor.
--- NOTE | 2019-01-19 19:42 | NUR ---
HAND-OFF: Report given to CAITIE SÁNCHEZ.
[2019-01-19 20:00] VITALS: BP 158/102
[2019-01-19] MEDS: Miralax 17gm pkt ORAL SCH ×2 (20:19→20:49)
--- NOTE | 2019-01-19 20:35 | Surgery Progress Note ---
Surgery Progress Note Subjective Additional Comments Ever since transplant biliary drain was placed to gravity bag she has been having significant output through it. LFTs remain stable. Ultrasound noted. Still complaining of fullness in the right upper quadrant and remaining of abdomen. No nausea or vomiting. Objective Last 24 Hour Vital Signs Date Time Temp Pulse Resp B/P (MAP) Pulse Ox O2 Delivery O2 Flow Rate FiO2 01/19/19 16:00 98.3 88 19 167/105 (125) 99 01/19/19 11:42 97.3 84 19 153/87 (109) 96 01/19/19 08:44 Nasal Cannula 1.0 01/19/19 08:43 77 01/19/19 08:34 97.3 20 129/80 (96) 100 01/19/19 05:00 98.0 01/19/19 04:00 97.5 77 18 132/86 (101) 96 01/19/19 00:00 98.1 82 18 125/75 (92) 99 01/18/19 21:20 Room Air I&O Intake and Output 01/18/19 01/19/19 19:00 07:00 Intake Total 800 ml 700 ml Output Total 230 ml 450 ml Balance 570 ml 250 ml Intake Oral 800 ml 350 ml IV Total 350 ml Other 230 ml 450 ml # Voids 5 4 Dressing: dry Wound: clean Drains: other Cardiovascular: RSR Respiratory: clear Abdomen: soft, non-tender, present bowel sounds, non-distended Extremities: no edema, no tenderness, no cyanosis Laboratory Tests Test 01/19/19 06:15 01/19/19 16:40 White Blood Count 25.4 K/UL (4.8-10.8) *H 27.2 K/UL (4.8-10.8) *H Red Blood Count 3.98 M/UL (4.20-5.40) L 4.19 M/UL (4.20-5.40) L Hemoglobin 12.9 G/DL (12.0-16.0) 13.5 G/DL (12.0-16.0) Hematocrit 37.9 % (37.0-47.0) 38.8 % (37.0-47.0) Mean Corpuscular Volume 95 FL (80-99) 93 FL (80-99) Mean Corpuscular Hemoglobin 32.3 PG (27.0-31.0) H 32.3 PG (27.0-31.0) H Mean Corpuscular Hemoglobin Concent 33.9 G/DL (32.0-36.0) 34.8 G/DL (32.0-36.0) Red Cell Distribution Width 13.2 % (11.6-14.8) 12.2 % (11.6-14.8) Platelet Count 453 K/UL (150-450) H 473 K/UL (150-450) H Mean Platelet Volume 6.4 FL (6.5-10.1) L 6.1 FL (6.5-10.1) L Neutrophils (%) (Auto) % (45.0-75.0) % (45.0-75.0) Lymphocytes (%) (Auto) % (20.0-45.0) % (20.0-45.0) Monocytes (%) (Auto) % (1.0-10.0) % (1.0-10.0) Eosinophils (%) (Auto) % (0.0-3.0) % (0.0-3.0) Basophils (%) (Auto) % (0.0-2.0) % (0.0-2.0) Differential Total Cells Counted 100 100 Neutrophils % (Manual) 85 % (45-75) H 91 % (45-75) H Lymphocytes % (Manual) 5 % (20-45) L 3 % (20-45) L Monocytes % (Manual) 5 % (1-10) 3 % (1-10) Eosinophils % (Manual) 2 % (0-3) 0 % (0-3) Basophils % (Manual) 0 % (0-2) 0 % (0-2) Band Neutrophils 3 % (0-8) 3 % (0-8) Platelet Estimate Adequate Increased H Platelet Morphology Normal Normal Red Blood Cell Morphology Normal Normal Sodium Level 136 MMOL/L (136-145) 134 MMOL/L (136-145) L Potassium Level 5.2 MMOL/L (3.5-5.1) H 4.1 MMOL/L (3.5-5.1) Chloride Level 101 MMOL/L (98-107) 101 MMOL/L (98-107) Carbon Dioxide Level 27 MMOL/L (21-32) 24 MMOL/L (21-32) Anion Gap 8 mmol/L (5-15) 9 mmol/L (5-15) Blood Urea Nitrogen 12 mg/dL (7-18) 13 mg/dL (7-18) Creatinine 1.4 MG/DL (0.55-1.30) H 1.3 MG/DL (0.55-1.30) Estimat Glomerular Filtration Rate 38.1 mL/min (>60) 41.5 mL/min (>60) Glucose Level 90 MG/DL (74-106) 103 MG/DL (74-106) Calcium Level 8.8 MG/DL (8.5-10.1) 8.7 MG/DL (8.5-10.1) Total Bilirubin 1.0 MG/DL (0.2-1.0) Aspartate Amino Transf (AST/SGOT) 19 U/L (15-37) Alanine Aminotransferase (ALT/SGPT) 19 U/L (12-78) Alkaline Phosphatase 151 U/L (46-116) H Total Protein 6.5 G/DL (6.4-8.2) Albumin 2.1 G/DL (3.4-5.0) L Globulin 4.4 g/dL Albumin/Globulin Ratio 0.5 (1.0-2.7) L Vancomycin Level Trough 27.3 ug/mL (5.0-12.0) H Plan Problems: (1) Abdominal pain Assessment & Plan: 63-year-old female patient with history of recently diagnosed pancreatic cancer in November 2018 presented to the emergency room at [facility] [place] with complaint of abdominal pain for approximately 1 hour. Patient is status post a biliary drain placement at [facility] approximately 1 week ago. She reported that she had a first treatment of chemotherapy this past Thursday. The patient denied any nausea vomiting, denies any constipation or diarrhea. She states her pain medication was unable to relieve her pain. no fever or chills. labs as below. C Tnoted. surgery called to assist with care and management. tube checked okay for diet leave tube in place with cap stable otherwise from surgical standpoint no acute surgical intervention planned iv fluids trend labs will monitor and follow with exam thank you (2) Biliary drain displacement Assessment & Plan: Daughter was able to inform me with a lot of history. Seems patient unresectable initially and attempted biliary drain placed endoscopically but unsuccessful. A external biliary drain was placed by radiology. Would patient was getting her Port-A-Cath placed a another radiologist felt he could place a internal/external biliary drain and he was able to successfully place a internal/external biliary drain. Had the trade Since. Fell off and she has been without it to drainage recently. In evaluating the trade she has some bilious output from the drain and on imaging drain looks to be appropriately placed. Labs reviewed stable. drain placed to gravity as leaking IMPRESSION: 1. Appropriately positioned percutaneous left biliary drain with mild intrahepatic biliary ductal dilatation. 2. Ill-defined pancreatic head/proximal body mass, likely corresponding to stated history of pancreatic neoplasm. Please note evaluation of size and vascular involvement of pancreatic masses is incomplete prior examinations and without multiphasic pancreatic protocol. 3. 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 SMV confluence is not visualized. 4. Color wall thickening with pericholecystic fluid; in the absence of distended gallbladder, these findings are critical for acute pancreatitis and clinical correlation is recommended. Transhepatic biliary drain noted. 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 Abnormal liver with area of peripheral hypoechogenicity along the posterior right lobe margin. Suggest further evaluation with contrast CT. Obscured pancreas and aorta due to bowel gas. (3) Pancreatic cancer Assessment & Plan: Pancreatic cancer, non-resectable, based on patient's info. Had a Abdominal pelvis CT reviewed 1. Appropriately positioned percutaneous left biliary drain with mild intrahepatic biliary ductal dilatation. 2. Ill- defined pancreatic head/proximal body mass, likely corresponding to stated history of pancreatic neoplasm. Please note evaluation of size and vascular involvement of pancreatic masses is incomplete prior examinations and without multiphasic pancreatic protocol. 3. 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 She has already started rx Additional Comments Will discuss with GI about repeating CT with IV contrast Jim Gates Jan 19, 2019 20:35
[2019-01-20] VITALS: BP 144/96
[2019-01-20] MEDS: Piperacillin/Tazobactam 3.375 GM in NS 110 ML IVPB SCH ×3 (01:17→16:35)
[2019-01-20] MEDS: HYDROmorphone 4mg tab ORAL PRN ×4 (01:47→20:07)
[2019-01-20 04:00] VITALS: BP 154/95
--- NOTE | 2019-01-20 04:00 | NUR ---
NURSE NOTES: Pain medication drops very little pain level. Expresses current conditions of pain. Emotional support and provide active listening. Pt shows appreciation. Will continue to follow up treatment regime and update to pt.
--- NOTE | 2019-01-20 06:15 | NUR ---
NURSE NOTES: Seen by Dr. Davidson. Receive an order for sleeping qhs. Order noted and carried out. Update to pt. Will continue to monitor.
--- NOTE | 2019-01-20 07:30 | NUR ---
HAND-OFF: Report given to CAITIE Foley. Round is done.
--- NOTE | 2019-01-20 07:35 | NUR ---
NURSE NOTES: Received report from CAITIE Lake. Pt is awake and alert, transferred pt from the chair to the bed. IV site intact and running fluids. Mild pain on left side of the abdomen per pt. No respiratory distress noted. Placed hot packs on abd per request. Biliary bile duct tube intact and running. Bed locked in lowest position, side rails up, call light within reach. Will continue to monitor.
[2019-01-20 08:00] VITALS: BP 155/97
[2019-01-20] MEDS: Lactulose 10gm/15ml UDC ORAL SCH ×5 (09:00→17:15)
[2019-01-20] MEDS: Docusate 100mg cap ORAL SCH ×4 (09:00→17:15)
--- NOTE | 2019-01-20 09:06 | General Progress Note ---
Assessment/Plan Assessment/Plan: (1) Intractable abdominal pain (2) Pancreatic cancer We will continue the Neurontin, Dilaudid and Fentanyl patch D/w Dr. Gonzales and he concurred. Subjective Date patient seen: Jan 20, 2019 Time patient seen: 08:00 - am Allergies: Coded Allergies: No Known Allergies (Unverified , 01/12/19) Subjective REVIEW OF SYSTEMS: Denies rash, fever, chills, sweating, dizziness, drowsiness, blurred vision, sore throat, change in weight. No shortness of breath or chest pain. No bowel or bladder incontinence. She is complaining of abdominal pain. SUBJECTIVE: Patient is in bed continues to c/o pain and is on the Fentanyl patch and Dilaudid tabs 6 doses in the last 24hrs. Was started on Neurontin 300mg TID. No new complaints at this time. Objective Last 24 Hour Vital Signs Date Time Temp Pulse Resp B/P (MAP) Pulse Ox O2 Delivery O2 Flow Rate FiO2 01/20/19 08:00 97.6 88 20 155/97 (116) 96 01/20/19 04:00 97.3 85 19 154/95 (114) 97 01/20/19 00:00 97.8 93 19 144/96 (112) 96 01/19/19 22:30 98.3 01/19/19 21:00 Nasal Cannula 2.0 01/19/19 20:00 98.4 94 20 158/102 (120) 95 01/19/19 16:00 98.3 88 19 167/105 (125) 99 01/19/19 11:42 97.3 84 19 153/87 (109) 96 Intake and Output 01/19/19 01/20/19 18:59 06:59 Intake Total 660.0 ml 550 ml Output Total 600 ml Balance 660.0 ml -50 ml Intake Oral 450 ml IV Total 210.0 ml 550 ml Other 600 ml # Voids 3 5 Laboratory Tests 01/19/19 16:40: White Blood Count 27.2*H, Red Blood Count 4.19L, Hemoglobin 13.5, Hematocrit 38.8, Mean Corpuscular Volume 93, Mean Corpuscular Hemoglobin 32.3H, Mean Corpuscular Hemoglobin Concent 34.8, Red Cell Distribution Width 12.2, Platelet Count 473H, Mean Platelet Volume 6.1L, Neutrophils (%) (Auto) , Lymphocytes (%) (Auto) , Monocytes (%) (Auto) , Eosinophils (%) (Auto) , Basophils (%) (Auto) , Differential Total Cells Counted 100, Neutrophils % (Manual) 91H, Lymphocytes % (Manual) 3L, Monocytes % (Manual) 3, Eosinophils % (Manual) 0, Basophils % ( Manual) 0, Band Neutrophils 3, Platelet Estimate IncreasedH, Platelet Morphology Normal, Red Blood Cell Morphology Normal, Sodium Level 134L, Potassium Level 4.1, Chloride Level 101, Carbon Dioxide Level 24, Anion Gap 9, Blood Urea Nitrogen 13, Creatinine 1.3, Estimat Glomerular Filtration Rate 41.5 , Glucose Level 103, Calcium Level 8.7, Total Bilirubin 1.0, Aspartate Amino Transf (AST/SGOT) 19, Alanine Aminotransferase (ALT/SGPT) 19, Alkaline Phosphatase 151H, Total Protein 6.5, Albumin 2.1L, Globulin 4.4, Albumin/ Globulin Ratio 0.5L, Vancomycin Level Trough 27.3H Height (Feet): 5 Height (Inches): 3.00 Weight (Pounds): 130 Objective GENERAL: Alert, awake, and oriented. LUNGS: Clear bilaterally. HEART: S1, S2 regular. ABDOMEN: Tenderness to palpation with biliary stent noted. BACK: Range of motion is decreased in flexion, extension. EXTREMITIES: No cyanosis. No clubbing. No edema. NEURO: No changes. Doug Reid Jan 20, 2019 09:06
--- NOTE | 2019-01-20 09:08 | NUR ---
RADIOLOGY DEPT., ABDOMEN X-RAY DONE.NAOMI
[2019-01-20] MEDS: Pantoprazole Inj IVP SCH (09:12)
[2019-01-20] MEDS: D5NS 1,000 ML IV SCH (09:12)
[2019-01-20] MEDS: Azithromycin 250mg tab ORAL SCH (09:14)
--- NOTE | 2019-01-20 09:20 | NUR ---
NURSE NOTES: Called pharmacy for missing Relistor. Pharmacy personnel said he will bring the med now.
[2019-01-20 09:32] LABS: HEMATOCRIT 37.6 % (37.0-47.0); HEMOGLOBIN 12.6 G/DL (12.0-16.0); MEAN CORPUSCULAR VOLUME 94 FL (80-99); PLATELET COUNT 605 K/UL (150-450); RED BLOOD COUNT 3.99 M/UL (4.20-5.40); RED CELL DISTRIBUTION WIDTH 13.3 % (11.6-14.8)
[2019-01-20 09:41] LABS: WHITE BLOOD COUNT 23.9 K/UL (4.8-10.8)
[2019-01-20 09:46] LABS: ALANINE AMINOTRANSFERASE 19 U/L (12-78); ALBUMIN/GLOBULIN RATIO 0.5 (1.0-2.7); ALKALINE PHOSPHATASE 130 U/L (46-116); ANION GAP 9 mmol/L (5-15); ASPARTATE AMINO TRANSFERASE 18 U/L (15-37); BILIRUBIN,TOTAL 0.9 MG/DL (0.2-1.0); BLOOD UREA NITROGEN 15 mg/dL (7-18); CALCIUM 8.7 MG/DL (8.5-10.1); CARBON DIOXIDE 27 MMOL/L (21-32); CHLORIDE 100 MMOL/L (98-107); CREATININE 1.3 MG/DL (0.55-1.30); POTASSIUM 4.2 MMOL/L (3.5-5.1); SODIUM 136 MMOL/L (136-145)
[2019-01-20] MEDS: Relistor 12mg/0.6ml Vial SUBQ SCH (09:49)
--- NOTE | 2019-01-20 11:09 | NUR ---
NURSE NOTES: Pt's daughter Tessa Kline called in to follow up with pt's status. Dr. Kirby's office number was given to the daughter per request. RN told the daughter she will be known when the comes by. She said she will follow up later.
[2019-01-20] MEDS ORDERED: Heparin 1000 units/ml 1ml Vial INJ SCH (11:15)
--- NOTE | 2019-01-20 11:36 | Diagnostic Imaging Report ---
Indication: Abdominal pain Comparison: None Single view of the abdomen obtained Findings: There is a transhepatic drain now projected over the right side of the abdomen. The dilated loops of small bowel noted throughout the abdomen. Bones are osteopenic. IMPRESSION: Dilated small bowel. Findings could be due to ileus. Bowel obstruction is not excluded. Internal/external transhepatic biliary drain.
[2019-01-20 12:00] VITALS: BP 155/97
--- NOTE | 2019-01-20 12:13 | Nephrology Progress Note ---
Assessment/Plan Problem List: (1) Electrolyte abnormality (2) Pancreatic cancer (3) Biliary drain displacement (4) Abdominal pain (5) Malnutrition Assessment HypoKalemia HypoNatremia Abdominal pain. Nausea. Vomiting. UTI. Pancreatic cancer. Biliary drain displacement Malnutrition. Anemia Plan DXC IV K , check labs change IV to isotonic solution monitor lytes start PO Folic acid Subjective ROS Limited/Unobtainable: No Constitutional: Reports: malaise, weakness Objective Objective Last 24 Hour Vital Signs Date Time Temp Pulse Resp B/P (MAP) Pulse Ox O2 Delivery O2 Flow Rate FiO2 01/20/19 09:00 Nasal Cannula 2.0 01/20/19 08:00 97.6 88 20 155/97 (116) 96 01/20/19 04:00 97.3 85 19 154/95 (114) 97 01/20/19 00:00 97.8 93 19 144/96 (112) 96 01/19/19 22:30 98.3 01/19/19 21:00 Nasal Cannula 2.0 01/19/19 20:00 98.4 94 20 158/102 (120) 95 01/19/19 16:00 98.3 88 19 167/105 (125) 99 Intake and Output 01/19/19 01/20/19 18:59 06:59 Intake Total 660.0 ml 550 ml Output Total 600 ml Balance 660.0 ml -50 ml Intake Oral 450 ml IV Total 210.0 ml 550 ml Other 600 ml # Voids 3 5 Laboratory Tests 01/19/19 16:40: White Blood Count 27.2*H, Red Blood Count 4.19L, Hemoglobin 13.5, Hematocrit 38.8, Mean Corpuscular Volume 93, Mean Corpuscular Hemoglobin 32.3H, Mean Corpuscular Hemoglobin Concent 34.8, Red Cell Distribution Width 12.2, Platelet Count 473H, Mean Platelet Volume 6.1L, Neutrophils (%) (Auto) , Lymphocytes (%) (Auto) , Monocytes (%) (Auto) , Eosinophils (%) (Auto) , Basophils (%) (Auto) , Differential Total Cells Counted 100, Neutrophils % (Manual) 91H, Lymphocytes % (Manual) 3L, Monocytes % (Manual) 3, Eosinophils % (Manual) 0, Basophils % ( Manual) 0, Band Neutrophils 3, Platelet Estimate IncreasedH, Platelet Morphology Normal, Red Blood Cell Morphology Normal, Sodium Level 134L, Potassium Level 4.1, Chloride Level 101, Carbon Dioxide Level 24, Anion Gap 9, Blood Urea Nitrogen 13, Creatinine 1.3, Estimat Glomerular Filtration Rate 41.5 , Glucose Level 103, Calcium Level 8.7, Total Bilirubin 1.0, Aspartate Amino Transf (AST/SGOT) 19, Alanine Aminotransferase (ALT/SGPT) 19, Alkaline Phosphatase 151H, Total Protein 6.5, Albumin 2.1L, Globulin 4.4, Albumin/ Globulin Ratio 0.5L, Vancomycin Level Trough 27.3H 01/20/19 08:05: White Blood Count 23.9*H, Red Blood Count 3.99L, Hemoglobin 12.6, Hematocrit 37.6, Mean Corpuscular Volume 94, Mean Corpuscular Hemoglobin 31.7H, Mean Corpuscular Hemoglobin Concent 33.6, Red Cell Distribution Width 13.3, Platelet Count 605H, Mean Platelet Volume 6.0L, Neutrophils (%) (Auto) , Lymphocytes (%) (Auto) , Monocytes (%) (Auto) , Eosinophils (%) (Auto) , Basophils (%) (Auto) , Differential Total Cells Counted 100, Neutrophils % (Manual) 90H, Lymphocytes % (Manual) 4L, Monocytes % (Manual) 4, Eosinophils % (Manual) 0, Basophils % ( Manual) 0, Band Neutrophils 2, Platelet Estimate IncreasedH, Platelet Morphology Normal, Red Blood Cell Morphology Normal, Sodium Level 136, Potassium Level 4.2, Chloride Level 100, Carbon Dioxide Level 27, Anion Gap 9, Blood Urea Nitrogen 15, Creatinine 1.3, Estimat Glomerular Filtration Rate 41.5 , Glucose Level 98, Calcium Level 8.7, Total Bilirubin 0.9, Aspartate Amino Transf (AST/SGOT) 18, Alanine Aminotransferase (ALT/SGPT) 19, Alkaline Phosphatase 130H, Total Protein 6.2L, Albumin 2.0L, Globulin 4.2, Albumin/ Globulin Ratio 0.5L, Random Vancomycin Level 24.4 Height (Feet): 5 Height (Inches): 3.00 Weight (Pounds): 130 General Appearance: no apparent distress Respiratory/Chest: decreased breath sounds Abdomen: distended Objective no change Kapil Turcios MD Jan 20, 2019 12:13
--- NOTE | 2019-01-20 13:03 | GI Progress Note ---
Assessment/Plan Problems: (1) Pancreatic cancer ICD Codes: C25.9 - Malignant neoplasm of pancreas, unspecified SNOMED: 043524267 (2) Biliary drain displacement ICD Codes: T85.520A - Displacement of bile duct prosthesis, initial encounter SNOMED: 963770777 (3) Abdominal pain ICD Codes: R10.9 - Unspecified abdominal pain SNOMED: 23106306 Status: unchanged Status Narrative Discussed with Dr. Rocha. Assessment/Plan Abdominal pelvis CT reviewed 1. Appropriately positioned percutaneous left biliary drain with mild intrahepatic biliary ductal dilatation. 2. Ill-defined pancreatic head/proximal body mass, likely corresponding to stated history of pancreatic neoplasm. Please note evaluation of size and vascular involvement of pancreatic masses is incomplete prior examinations and without multiphasic pancreatic protocol. 3. 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 SMV confluence is not visualized. 4. Color wall thickening with pericholecystic fluid; in the absence of distended gallbladder, these findings are critical for acute pancreatitis and clinical correlation is recommended. No plans for GI procedures at this time. Symptomatic treatment surgical recommendations, biliary drain placed to gravity with high output Follow-up pain management recommendations ppi Trend LFTs advance diet as tolerated We will follow-up The patient was seen and examined at bedside and all new and available data was reviewed in the patients chart. I agree with the above findings, impression and plan. (Patient seen earlier today. Signature stamp does not reflect patient encounter time.). - Indra Rocha MD Subjective Subjective Patient still complains of abdominal pain, but states her pain is improved with increased dosage of medication Objective Last 24 Hour Vital Signs Date Time Temp Pulse Resp B/P (MAP) Pulse Ox O2 Delivery O2 Flow Rate FiO2 01/20/19 12:00 97.9 95 20 155/97 (116) 96 01/20/19 09:00 Nasal Cannula 2.0 01/20/19 08:00 97.6 88 20 155/97 (116) 96 01/20/19 04:00 97.3 85 19 154/95 (114) 97 01/20/19 00:00 97.8 93 19 144/96 (112) 96 01/19/19 22:30 98.3 01/19/19 21:00 Nasal Cannula 2.0 01/19/19 20:00 98.4 94 20 158/102 (120) 95 01/19/19 16:00 98.3 88 19 167/105 (125) 99 Intake and Output 01/19/19 01/20/19 18:59 06:59 Intake Total 660.0 ml 550 ml Output Total 600 ml Balance 660.0 ml -50 ml Intake Oral 450 ml IV Total 210.0 ml 550 ml Other 600 ml # Voids 3 5 Laboratory Tests Test 01/19/19 16:40 01/20/19 08:05 White Blood Count 27.2 K/UL (4.8-10.8) *H 23.9 K/UL (4.8-10.8) *H Red Blood Count 4.19 M/UL (4.20-5.40) L 3.99 M/UL (4.20-5.40) L Hemoglobin 13.5 G/DL (12.0-16.0) 12.6 G/DL (12.0-16.0) Hematocrit 38.8 % (37.0-47.0) 37.6 % (37.0-47.0) Mean Corpuscular Volume 93 FL (80-99) 94 FL (80-99) Mean Corpuscular Hemoglobin 32.3 PG (27.0-31.0) H 31.7 PG (27.0-31.0) H Mean Corpuscular Hemoglobin Concent 34.8 G/DL (32.0-36.0) 33.6 G/DL (32.0-36.0) Red Cell Distribution Width 12.2 % (11.6-14.8) 13.3 % (11.6-14.8) Platelet Count 473 K/UL (150-450) H 605 K/UL (150-450) H Mean Platelet Volume 6.1 FL (6.5-10.1) L 6.0 FL (6.5-10.1) L Neutrophils (%) (Auto) % (45.0-75.0) % (45.0-75.0) Lymphocytes (%) (Auto) % (20.0-45.0) % (20.0-45.0) Monocytes (%) (Auto) % (1.0-10.0) % (1.0-10.0) Eosinophils (%) (Auto) % (0.0-3.0) % (0.0-3.0) Basophils (%) (Auto) % (0.0-2.0) % (0.0-2.0) Differential Total Cells Counted 100 100 Neutrophils % (Manual) 91 % (45-75) H 90 % (45-75) H Lymphocytes % (Manual) 3 % (20-45) L 4 % (20-45) L Monocytes % (Manual) 3 % (1-10) 4 % (1-10) Eosinophils % (Manual) 0 % (0-3) 0 % (0-3) Basophils % (Manual) 0 % (0-2) 0 % (0-2) Band Neutrophils 3 % (0-8) 2 % (0-8) Platelet Estimate Increased H Increased H Platelet Morphology Normal Normal Red Blood Cell Morphology Normal Normal Sodium Level 134 MMOL/L (136-145) L 136 MMOL/L (136-145) Potassium Level 4.1 MMOL/L (3.5-5.1) 4.2 MMOL/L (3.5-5.1) Chloride Level 101 MMOL/L (98-107) 100 MMOL/L (98-107) Carbon Dioxide Level 24 MMOL/L (21-32) 27 MMOL/L (21-32) Anion Gap 9 mmol/L (5-15) 9 mmol/L (5-15) Blood Urea Nitrogen 13 mg/dL (7-18) 15 mg/dL (7-18) Creatinine 1.3 MG/DL (0.55-1.30) 1.3 MG/DL (0.55-1.30) Estimat Glomerular Filtration Rate 41.5 mL/min (>60) 41.5 mL/min (>60) Glucose Level 103 MG/DL (74-106) 98 MG/DL (74-106) Calcium Level 8.7 MG/DL (8.5-10.1) 8.7 MG/DL (8.5-10.1) Total Bilirubin 1.0 MG/DL (0.2-1.0) 0.9 MG/DL (0.2-1.0) Aspartate Amino Transf (AST/SGOT) 19 U/L (15-37) 18 U/L (15-37) Alanine Aminotransferase (ALT/SGPT) 19 U/L (12-78) 19 U/L (12-78) Alkaline Phosphatase 151 U/L (46-116) H 130 U/L (46-116) H Total Protein 6.5 G/DL (6.4-8.2) 6.2 G/DL (6.4-8.2) L Albumin 2.1 G/DL (3.4-5.0) L 2.0 G/DL (3.4-5.0) L Globulin 4.4 g/dL 4.2 g/dL Albumin/Globulin Ratio 0.5 (1.0-2.7) L 0.5 (1.0-2.7) L Vancomycin Level Trough 27.3 ug/mL (5.0-12.0) H Random Vancomycin Level 24.4 ug/mL Height (Feet): 5 Height (Inches): 3.00 Weight (Pounds): 130 General Appearance: WD/WN, no apparent distress, alert Cardiovascular: normal rate Respiratory/Chest: normal breath sounds, no respiratory distress Abdominal Exam: normal bowel sounds, non tender, soft Extremities: non-tender Jeff Rueda NP Jan 20, 2019 13:03
--- NOTE | 2019-01-20 13:21 | Infectious Diseases Prog Note ---
Assessment/Plan Assessment/Plan Fever 01/13, SP Leukocytosis 01/14 bcx ng tumor related? PNA, CAP? -CXR: Patchy consolidation in the right lower lung, concerning for pneumonia. Mild pulmonary vascular congestion. -flu swab negative urine legionella antigen negative Abdominal pain Pancreatitis? lipase negative 01/12 CT abd/p: Appropriately positioned percutaneous left biliary drain with mild intrahepatic biliary ductal dilatation. Ill-defined pancreatic head/ proximal body mass, likely corresponding to stated history of pancreatic neoplasm. Please note evaluation of size and vascular involvement of pancreatic masses is incomplete prior examinations and without multiphasic pancreatic protocol. 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 SMV confluence is not visualized. Gallbladder wall thickening with pericholecystic fluid; in the absence of distended gallbladder, these findings are critical for acute pancreatitis and clinical correlation is recommended. 01/19 US Abd: Transhepatic biliary drain noted. 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 Abnormal liver with area of peripheral hypoechogenicity along the posterior right lobe margin. Suggest further evaluation with contrast CT. Obscured pancreas and aorta due to bowel gas. Trace ascites Fever, SP Leukocytosis; improving recently diagnosed pancreatic CA 11/2018 - s/p biliary drain 1 week [employer] at [facility] -sp 1st chemotherapy treatment 01/10/19 tobacco abuse Plan: -cont empiric Zosyn and IV Vancomycin #7 -cont Azithromycin #6/7 for mycoplasma coverage 01/17 DC Tamiflu #2 -f/u cx -Monitor CBC/CMP, temperatures -f/u Bcx x2 -aspiration precautions repeat CT A/P today Thank you for this consultation. Will continue to follow along with you. Subjective Allergies: Coded Allergies: No Known Allergies (Unverified , 01/12/19) Subjective Afebrile. Leukocytosis slightly better Pt today feels much better after having a large bowel movement. Denies nausea, abdominal pain less. High output from drain, now connected to sullivan bag. Objective Vital Signs Last 24 Hour Vital Signs Date Time Temp Pulse Resp B/P (MAP) Pulse Ox O2 Delivery O2 Flow Rate FiO2 01/20/19 12:00 97.9 95 20 155/97 (116) 96 01/20/19 09:00 Nasal Cannula 2.0 01/20/19 08:00 97.6 88 20 155/97 (116) 96 01/20/19 04:00 97.3 85 19 154/95 (114) 97 01/20/19 00:00 97.8 93 19 144/96 (112) 96 01/19/19 22:30 98.3 01/19/19 21:00 Nasal Cannula 2.0 01/19/19 20:00 98.4 94 20 158/102 (120) 95 01/19/19 16:00 98.3 88 19 167/105 (125) 99 Height (Feet): 5 Height (Inches): 3.00 Weight (Pounds): 130 Objective Gen: NAD CV: RRR Resp: RRR Abd: hypoactive BS+. Diffusely TTP but worse RUQ. Ext: no edema Neuro: alert. Laboratory Tests Test 01/19/19 16:40 01/20/19 08:05 White Blood Count 27.2 K/UL (4.8-10.8) *H 23.9 K/UL (4.8-10.8) *H Red Blood Count 4.19 M/UL (4.20-5.40) L 3.99 M/UL (4.20-5.40) L Hemoglobin 13.5 G/DL (12.0-16.0) 12.6 G/DL (12.0-16.0) Hematocrit 38.8 % (37.0-47.0) 37.6 % (37.0-47.0) Mean Corpuscular Volume 93 FL (80-99) 94 FL (80-99) Mean Corpuscular Hemoglobin 32.3 PG (27.0-31.0) H 31.7 PG (27.0-31.0) H Mean Corpuscular Hemoglobin Concent 34.8 G/DL (32.0-36.0) 33.6 G/DL (32.0-36.0) Red Cell Distribution Width 12.2 % (11.6-14.8) 13.3 % (11.6-14.8) Platelet Count 473 K/UL (150-450) H 605 K/UL (150-450) H Mean Platelet Volume 6.1 FL (6.5-10.1) L 6.0 FL (6.5-10.1) L Neutrophils (%) (Auto) % (45.0-75.0) % (45.0-75.0) Lymphocytes (%) (Auto) % (20.0-45.0) % (20.0-45.0) Monocytes (%) (Auto) % (1.0-10.0) % (1.0-10.0) Eosinophils (%) (Auto) % (0.0-3.0) % (0.0-3.0) Basophils (%) (Auto) % (0.0-2.0) % (0.0-2.0) Differential Total Cells Counted 100 100 Neutrophils % (Manual) 91 % (45-75) H 90 % (45-75) H Lymphocytes % (Manual) 3 % (20-45) L 4 % (20-45) L Monocytes % (Manual) 3 % (1-10) 4 % (1-10) Eosinophils % (Manual) 0 % (0-3) 0 % (0-3) Basophils % (Manual) 0 % (0-2) 0 % (0-2) Band Neutrophils 3 % (0-8) 2 % (0-8) Platelet Estimate Increased H Increased H Platelet Morphology Normal Normal Red Blood Cell Morphology Normal Normal Sodium Level 134 MMOL/L (136-145) L 136 MMOL/L (136-145) Potassium Level 4.1 MMOL/L (3.5-5.1) 4.2 MMOL/L (3.5-5.1) Chloride Level 101 MMOL/L (98-107) 100 MMOL/L (98-107) Carbon Dioxide Level 24 MMOL/L (21-32) 27 MMOL/L (21-32) Anion Gap 9 mmol/L (5-15) 9 mmol/L (5-15) Blood Urea Nitrogen 13 mg/dL (7-18) 15 mg/dL (7-18) Creatinine 1.3 MG/DL (0.55-1.30) 1.3 MG/DL (0.55-1.30) Estimat Glomerular Filtration Rate 41.5 mL/min (>60) 41.5 mL/min (>60) Glucose Level 103 MG/DL (74-106) 98 MG/DL (74-106) Calcium Level 8.7 MG/DL (8.5-10.1) 8.7 MG/DL (8.5-10.1) Total Bilirubin 1.0 MG/DL (0.2-1.0) 0.9 MG/DL (0.2-1.0) Aspartate Amino Transf (AST/SGOT) 19 U/L (15-37) 18 U/L (15-37) Alanine Aminotransferase (ALT/SGPT) 19 U/L (12-78) 19 U/L (12-78) Alkaline Phosphatase 151 U/L (46-116) H 130 U/L (46-116) H Total Protein 6.5 G/DL (6.4-8.2) 6.2 G/DL (6.4-8.2) L Albumin 2.1 G/DL (3.4-5.0) L 2.0 G/DL (3.4-5.0) L Globulin 4.4 g/dL 4.2 g/dL Albumin/Globulin Ratio 0.5 (1.0-2.7) L 0.5 (1.0-2.7) L Vancomycin Level Trough 27.3 ug/mL (5.0-12.0) H Random Vancomycin Level 24.4 ug/mL Current Medications Medications (Trade) Dose Ordered Sig/Zuleima Route PRN Reason Start Time Stop Time Status Last Admin Dose Admin Acetaminophen (Tylenol) 650 mg Q8H PRN ORAL Mild Pain/Temp > 100.5 01/12/19 17:30 02/11/19 17:29 01/13/19 17:27 Azithromycin (Zithromax) 500 mg DAILY ORAL 01/15/19 14:00 01/22/19 13:59 01/20/19 09:14 Bisacodyl (Dulcolax) 10 mg BIDPRN PRN RECTAL Constipation 01/16/19 07:45 02/15/19 07:44 01/19/19 18:34 Dextrose (Dextrose 50%) 25 ml Q30M PRN IV Hypoglycemia 01/12/19 13:45 02/11/19 13:44 Dextrose (Dextrose 50%) 50 ml Q30M PRN IV Hypoglycemia 01/12/19 13:45 02/11/19 13:44 Dextrose/Sodium Chloride 1,000 ml @ 50 mls/hr Q20H IV 01/19/19 12:57 02/18/19 12:56 01/20/19 09:12 Docusate Sodium (Colace) 100 mg TWICE A DAY ORAL 01/15/19 18:00 02/14/19 17:59 01/19/19 18:18 Fentanyl (Duragesic) 1 patch Q72H TDERMAL 01/19/19 12:00 01/26/19 11:59 01/19/19 12:08 Folic Acid (Folate) 5 mg DAILY ORAL 01/17/19 09:45 02/16/19 09:44 01/20/19 09:13 Gabapentin (Neurontin) 300 mg THREE TIMES A DAY ORAL 01/19/19 18:00 02/18/19 17:59 01/20/19 13:03 Hydromorphone HCl (Dilaudid) 4 mg Q4H PRN ORAL severe breakthrough pain 01/18/19 14:12 01/25/19 14:11 01/20/19 05:57 Lactulose (Cephulac) 10 gm THREE TIMES A DAY ORAL 01/16/19 13:00 02/15/19 12:59 01/19/19 18:18 Methylnaltrexone Howard (Relistor) 12 mg QOD SUBQ 01/20/19 09:15 02/19/19 09:14 01/20/19 09:49 Miscellaneous Medication (fentaNYL Destruction) 1 ea Q72H MISC 01/19/19 12:00 02/18/19 11:59 01/19/19 12:09 Naloxone HCl (Narcan) 0.1 mg Q5M PRN IV Sedation scale 3 or 4 01/16/19 12:00 02/15/19 11:59 Ondansetron HCl (Zofran) 4 mg Q6H PRN IVP Nausea & Vomiting 01/12/19 13:45 02/11/19 13:44 01/19/19 13:56 Pantoprazole (Protonix) 40 mg DAILY IVP 01/12/19 16:45 02/11/19 16:44 01/20/19 09:12 Piperacillin Sod/ Tazobactam Sod 3.375 gm/Sodium Chloride 110 ml @ 27.5 mls/hr Q8H IVPB 01/14/19 17:00 01/21/19 16:59 01/20/19 09:22 Polyethylene Glycol (Miralax) 17 gm BEDTIME ORAL 01/16/19 21:00 02/15/19 20:59 Simethicone (Mylicon) 80 mg BIDPRN PRN ORAL gas 01/18/19 21:45 02/17/19 21:44 01/19/19 23:36 Vancomycin HCl (Vanco rx to dose) 1 ea DAILY PRN MISC Per rx protocol 01/14/19 20:30 02/13/19 20:29 Zolpidem Tartrate (Ambien) 5 mg HSPRN PRN ORAL Insomnia 01/20/19 06:15 01/27/19 06:14 Catalina Kirby MD Jan 20, 2019 13:21
--- NOTE | 2019-01-20 13:26 | NUR ---
P.T Note: late entry 1100 Pt declined to participate in therapy today due to c/o no feeling well. Pt requested to be seen tomorrow and would like to rest for today. RN notified. Will reattempt tomorrow.
--- NOTE | 2019-01-20 13:29 | General Progress Note ---
Assessment/Plan Problem List: (1) SOB (shortness of breath) ICD Codes: R06.02 - Shortness of breath SNOMED: 298415255 (2) Nausea & vomiting ICD Codes: R11.2 - Nausea with vomiting, unspecified SNOMED: 00179771 (3) Malnutrition ICD Codes: E46 - Unspecified protein-calorie malnutrition SNOMED: 60076540 (4) UTI (urinary tract infection) ICD Codes: N39.0 - Urinary tract infection, site not specified SNOMED: 96661504 (5) Abdominal pain ICD Codes: R10.9 - Unspecified abdominal pain SNOMED: 17107806 (6) Biliary drain displacement ICD Codes: T85.520A - Displacement of bile duct prosthesis, initial encounter SNOMED: 299710288 (7) Pancreatic cancer ICD Codes: C25.9 - Malignant neoplasm of pancreas, unspecified SNOMED: 582364689 Status: unchanged Assessment/Plan: pt diet pain control abx cbc bmp am dc plan snf Subjective Constitutional: Reports: weakness Allergies: Coded Allergies: No Known Allergies (Unverified , 01/12/19) Subjective o2nc sl nausea abd pain Objective Last 24 Hour Vital Signs Date Time Temp Pulse Resp B/P (MAP) Pulse Ox O2 Delivery O2 Flow Rate FiO2 01/20/19 12:00 97.9 95 20 155/97 (116) 96 01/20/19 09:00 Nasal Cannula 2.0 01/20/19 08:00 97.6 88 20 155/97 (116) 96 01/20/19 04:00 97.3 85 19 154/95 (114) 97 01/20/19 00:00 97.8 93 19 144/96 (112) 96 01/19/19 22:30 98.3 01/19/19 21:00 Nasal Cannula 2.0 01/19/19 20:00 98.4 94 20 158/102 (120) 95 01/19/19 16:00 98.3 88 19 167/105 (125) 99 Intake and Output 01/19/19 01/20/19 18:59 06:59 Intake Total 660.0 ml 550 ml Output Total 600 ml Balance 660.0 ml -50 ml Intake Oral 450 ml IV Total 210.0 ml 550 ml Other 600 ml # Voids 3 5 Laboratory Tests 01/19/19 16:40: White Blood Count 27.2*H, Red Blood Count 4.19L, Hemoglobin 13.5, Hematocrit 38.8, Mean Corpuscular Volume 93, Mean Corpuscular Hemoglobin 32.3H, Mean Corpuscular Hemoglobin Concent 34.8, Red Cell Distribution Width 12.2, Platelet Count 473H, Mean Platelet Volume 6.1L, Neutrophils (%) (Auto) , Lymphocytes (%) (Auto) , Monocytes (%) (Auto) , Eosinophils (%) (Auto) , Basophils (%) (Auto) , Differential Total Cells Counted 100, Neutrophils % (Manual) 91H, Lymphocytes % (Manual) 3L, Monocytes % (Manual) 3, Eosinophils % (Manual) 0, Basophils % ( Manual) 0, Band Neutrophils 3, Platelet Estimate IncreasedH, Platelet Morphology Normal, Red Blood Cell Morphology Normal, Sodium Level 134L, Potassium Level 4.1, Chloride Level 101, Carbon Dioxide Level 24, Anion Gap 9, Blood Urea Nitrogen 13, Creatinine 1.3, Estimat Glomerular Filtration Rate 41.5 , Glucose Level 103, Calcium Level 8.7, Total Bilirubin 1.0, Aspartate Amino Transf (AST/SGOT) 19, Alanine Aminotransferase (ALT/SGPT) 19, Alkaline Phosphatase 151H, Total Protein 6.5, Albumin 2.1L, Globulin 4.4, Albumin/ Globulin Ratio 0.5L, Vancomycin Level Trough 27.3H 01/20/19 08:05: White Blood Count 23.9*H, Red Blood Count 3.99L, Hemoglobin 12.6, Hematocrit 37.6, Mean Corpuscular Volume 94, Mean Corpuscular Hemoglobin 31.7H, Mean Corpuscular Hemoglobin Concent 33.6, Red Cell Distribution Width 13.3, Platelet Count 605H, Mean Platelet Volume 6.0L, Neutrophils (%) (Auto) , Lymphocytes (%) (Auto) , Monocytes (%) (Auto) , Eosinophils (%) (Auto) , Basophils (%) (Auto) , Differential Total Cells Counted 100, Neutrophils % (Manual) 90H, Lymphocytes % (Manual) 4L, Monocytes % (Manual) 4, Eosinophils % (Manual) 0, Basophils % ( Manual) 0, Band Neutrophils 2, Platelet Estimate IncreasedH, Platelet Morphology Normal, Red Blood Cell Morphology Normal, Sodium Level 136, Potassium Level 4.2, Chloride Level 100, Carbon Dioxide Level 27, Anion Gap 9, Blood Urea Nitrogen 15, Creatinine 1.3, Estimat Glomerular Filtration Rate 41.5 , Glucose Level 98, Calcium Level 8.7, Total Bilirubin 0.9, Aspartate Amino Transf (AST/SGOT) 18, Alanine Aminotransferase (ALT/SGPT) 19, Alkaline Phosphatase 130H, Total Protein 6.2L, Albumin 2.0L, Globulin 4.2, Albumin/ Globulin Ratio 0.5L, Random Vancomycin Level 24.4 Height (Feet): 5 Height (Inches): 3.00 Weight (Pounds): 130 General Appearance: lethargic EENT: normal ENT inspection Neck: normal alignment Cardiovascular: normal peripheral pulses, normal rate, regular rhythm Respiratory/Chest: chest wall non-tender, lungs clear, normal breath sounds Abdomen: normal bowel sounds, non tender, soft Extremities: normal inspection Edema: no edema noted Arm (L), no edema noted Arm (R), no edema noted Leg (L), no edema noted Leg (R), no edema noted Pedal (L), no edema noted Pedal (R), no edema noted Generalized Neurologic: responsive, motor weakness Skin: normal pigmentation, warm/dry Elvis Luke DO Jan 20, 2019 13:29
[2019-01-20] MEDS ORDERED: Enoxaparin 60mg Inj SUBQ SCH (14:50)
--- NOTE | 2019-01-20 15:19 | NUR ---
*-* INSURANCE *-* ALL AVAILABLE CLINICALS HAVE BEEN FAXED TO: REF#[id number] - FOR TRACKING PURPOSES THIS IS SHARED RISK NO CM ASSIGNED PH#[phone] FAX#[phone] [facility]CL[facility]ICALS [facility]#[id number] CM: TAMMY PH#[phone] EXT [id number] FAX#[phone] REVIEWS/CLINICALS
--- NOTE | 2019-01-20 15:27 | Hematology/Onc Progress Note ---
Assessment/Plan Assessment/Plan Assessment/Plan # Pancreatic cancer, non-resectable, based on patient's info. Had a Abdominal pelvis CT reviewed 1. Appropriately positioned percutaneous left biliary drain with mild intrahepatic biliary ductal dilatation. 2. Ill-defined pancreatic head/proximal body mass, likely corresponding to stated history of pancreatic neoplasm. Please note evaluation of size and vascular involvement of pancreatic masses is incomplete prior examinations and without multiphasic pancreatic protocol. 3. 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 She has already started rx. --> gi recs noted No plans for GI procedures at this time. --> surgical recommendations, no interventions at this time --> likely to continue chemo and XRT as needed with Dr. Elias Bernal (has received one chemo session) --> CA 19.9 688, in general with this presentation, poor prognosis --> if doesn't get chemo soon, likely to deteriorate, may be hospice candidate # Portal vein thrombosis with abd pain --> may be contributor for abdominal pain --> minimize pain meds as much as possible # Anemia of myelosuppressive chemo --> okay to continue on chemo at this time --> epo as stimulating factor if drops --> dw patient risks of dvt/VTE # Leukocytosis is likely due to pna --> agree to trend, improved --> abx as per id --> wbc trend 22-->20-->18k-->34k --> CT a/P for today # Transaminitis --> Trend LFTs --> per gi --> advance diet as tolerated # Dvt ppx scds Appreciate consultation and dw RN Subjective Constitutional: Denies: no symptoms, chills, fever, malaise, weakness, other HEENT: Denies: no symptoms, eye pain, blurred vision, tearing, double vision, ear pain, ear discharge, nose pain, nose congestion, throat pain, throat swelling, mouth pain, mouth swelling, other Cardiovascular: Denies: no symptoms, chest pain, edema, irregular heart rate, lightheadedness, palpitations, syncope, other Respiratory: Denies: no symptoms, cough, shortness of breath, SOB with excertion, SOB at rest, sputum, wheezing, other Gastrointestinal/Abdominal: Denies: no symptoms, abdomen distended, abdominal pain, black stools, tarry stools, blood in stool, constipated, diarrhea, difficulty swallowing, nausea, poor appetite, poor fluid intake, rectal bleeding , vomiting, other Genitourinary: Denies: no symptoms, burning, discharge, frequency, flank pain, hematuria, incontinence, pain, urgency, other Endocrine: Denies: no symptoms, excessive sweating, flushing, intolerance to cold, intolerance to heat, increased hunger, increased thirst, increased urine, unexplained weight gain, unexplained weight loss, other Hematologic/Lymphatic: Denies: no symptoms, anemia, easy bleeding, easy bruising, adenopathy, other Allergies: Coded Allergies: No Known Allergies (Unverified , 01/12/19) Subjective 01/13: no events to report, no f/c, no night sweats 01/14: no bleeding, on meds, ivf 01/15: no major changes, dw patient, some minor abd pain 01/18: no major events, drain is to gravity, seen by surg, no bleeidng 01/19: awake, alert, getting dressed this am, labs noted 01/20: no events, no bleeding reported, no major changes, no fc Objective Objective Current Medications Medications (Trade) Dose Ordered Sig/Zuleima Route PRN Reason Start Time Stop Time Status Last Admin Dose Admin Acetaminophen (Tylenol) 650 mg Q8H PRN ORAL Mild Pain/Temp > 100.5 01/12/19 17:30 02/11/19 17:29 01/13/19 17:27 Azithromycin (Zithromax) 500 mg DAILY ORAL 01/15/19 14:00 01/22/19 13:59 01/20/19 09:14 Bisacodyl (Dulcolax) 10 mg BIDPRN PRN RECTAL Constipation 01/16/19 07:45 02/15/19 07:44 01/19/19 18:34 Dextrose (Dextrose 50%) 25 ml Q30M PRN IV Hypoglycemia 01/12/19 13:45 02/11/19 13:44 Dextrose (Dextrose 50%) 50 ml Q30M PRN IV Hypoglycemia 01/12/19 13:45 02/11/19 13:44 Dextrose/Sodium Chloride 1,000 ml @ 50 mls/hr Q20H IV 01/19/19 12:57 02/18/19 12:56 01/20/19 09:12 Docusate Sodium (Colace) 100 mg TWICE A DAY ORAL 01/15/19 18:00 02/14/19 17:59 01/19/19 18:18 Enoxaparin Sodium (Lovenox) 60 mg EVERY 12 HOURS SUBQ 01/20/19 14:50 02/19/19 14:49 Fentanyl (Duragesic) 1 patch Q72H TDERMAL 01/19/19 12:00 01/26/19 11:59 01/19/19 12:08 Folic Acid (Folate) 5 mg DAILY ORAL 01/17/19 09:45 02/16/19 09:44 01/20/19 09:13 Gabapentin (Neurontin) 300 mg THREE TIMES A DAY ORAL 01/19/19 18:00 02/18/19 17:59 01/20/19 13:03 Hydromorphone HCl (Dilaudid) 4 mg Q4H PRN ORAL severe breakthrough pain 01/18/19 14:12 01/25/19 14:11 01/20/19 05:57 Lactulose (Cephulac) 10 gm THREE TIMES A DAY ORAL 01/16/19 13:00 02/15/19 12:59 01/19/19 18:18 Methylnaltrexone Clay (Relistor) 12 mg QOD SUBQ 01/20/19 09:15 02/19/19 09:14 01/20/19 09:49 Miscellaneous Medication (fentaNYL Destruction) 1 ea Q72H MISC 01/19/19 12:00 02/18/19 11:59 01/19/19 12:09 Naloxone HCl (Narcan) 0.1 mg Q5M PRN IV Sedation scale 3 or 4 01/16/19 12:00 02/15/19 11:59 Ondansetron HCl (Zofran) 4 mg Q6H PRN IVP Nausea & Vomiting 01/12/19 13:45 02/11/19 13:44 01/19/19 13:56 Pantoprazole (Protonix) 40 mg DAILY IVP 01/12/19 16:45 02/11/19 16:44 01/20/19 09:12 Piperacillin Sod/ Tazobactam Sod 3.375 gm/Sodium Chloride 110 ml @ 27.5 mls/hr Q8H IVPB 01/14/19 17:00 01/21/19 16:59 01/20/19 09:22 Polyethylene Glycol (Miralax) 17 gm BEDTIME ORAL 01/16/19 21:00 02/15/19 20:59 Simethicone (Mylicon) 80 mg BIDPRN PRN ORAL gas 01/18/19 21:45 02/17/19 21:44 01/19/19 23:36 Vancomycin HCl (Vanco rx to dose) 1 ea DAILY PRN MISC Per rx protocol 01/14/19 20:30 02/13/19 20:29 Zolpidem Tartrate (Ambien) 5 mg HSPRN PRN ORAL Insomnia 01/20/19 06:15 01/27/19 06:14 Last 24 Hour Vital Signs Date Time Temp Pulse Resp B/P (MAP) Pulse Ox O2 Delivery O2 Flow Rate FiO2 01/20/19 12:00 97.9 95 20 155/97 (116) 96 01/20/19 09:00 Nasal Cannula 2.0 01/20/19 08:00 97.6 88 20 155/97 (116) 96 01/20/19 04:00 97.3 85 19 154/95 (114) 97 01/20/19 00:00 97.8 93 19 144/96 (112) 96 01/19/19 22:30 98.3 01/19/19 21:00 Nasal Cannula 2.0 01/19/19 20:00 98.4 94 20 158/102 (120) 95 01/19/19 16:00 98.3 88 19 167/105 (125) 99 01/19/19 11:42 97.3 84 19 153/87 (109) 96 01/19/19 08:44 Nasal Cannula 1.0 01/19/19 08:43 77 01/19/19 08:34 97.3 20 129/80 (96) 100 01/19/19 04:00 97.5 77 18 132/86 (101) 96 01/19/19 00:00 98.1 82 18 125/75 (92) 99 01/18/19 21:20 Room Air 01/18/19 20:00 97.3 78 20 145/83 (103) 99 01/18/19 16:00 98.0 82 18 137/74 (95) 99 Intake and Output 01/19/19 01/20/19 18:59 06:59 Intake Total 660.0 ml 550 ml Output Total 600 ml Balance 660.0 ml -50 ml Intake Oral 450 ml IV Total 210.0 ml 550 ml Other 600 ml # Voids 3 5 Labs Test 01/17/19 21:05 01/18/19 07:00 01/19/19 06:15 01/19/19 16:40 Vancomycin Level Trough 27.7 ug/mL (5.0-12.0) 27.3 ug/mL (5.0-12.0) White Blood Count 18.4 K/UL (4.8-10.8) 25.4 K/UL (4.8-10.8) 27.2 K/UL (4.8-10.8) Red Blood Count 3.67 M/UL (4.20-5.40) 3.98 M/UL (4.20-5.40) 4.19 M/UL (4.20-5.40) Hemoglobin 11.8 G/DL (12.0-16.0) 12.9 G/DL (12.0-16.0) 13.5 G/DL (12.0-16.0) Hematocrit 34.6 % (37.0-47.0) 37.9 % (37.0-47.0) 38.8 % (37.0-47.0) Mean Corpuscular Volume 94 FL (80-99) 95 FL (80-99) 93 FL (80-99) Mean Corpuscular Hemoglobin 32.1 PG (27.0-31.0) 32.3 PG (27.0-31.0) 32.3 PG (27.0-31.0) Mean Corpuscular Hemoglobin Concent 34.0 G/DL (32.0-36.0) 33.9 G/DL (32.0-36.0) 34.8 G/DL (32.0-36.0) Red Cell Distribution Width 12.8 % (11.6-14.8) 13.2 % (11.6-14.8) 12.2 % (11.6-14.8) Platelet Count 338 K/UL (150-450) 453 K/UL (150-450) 473 K/UL (150-450) Mean Platelet Volume 6.6 FL (6.5-10.1) 6.4 FL (6.5-10.1) 6.1 FL (6.5-10.1) Neutrophils (%) (Auto) % (45.0-75.0) % (45.0-75.0) % (45.0-75.0) Lymphocytes (%) (Auto) % (20.0-45.0) % (20.0-45.0) % (20.0-45.0) Monocytes (%) (Auto) % (1.0-10.0) % (1.0-10.0) % (1.0-10.0) Eosinophils (%) (Auto) % (0.0-3.0) % (0.0-3.0) % (0.0-3.0) Basophils (%) (Auto) % (0.0-2.0) % (0.0-2.0) % (0.0-2.0) Differential Total Cells Counted 100 100 100 Neutrophils % (Manual) 92 % (45-75) 85 % (45-75) 91 % (45-75) Lymphocytes % (Manual) 5 % (20-45) 5 % (20-45) 3 % (20-45) Monocytes % (Manual) 3 % (1-10) 5 % (1-10) 3 % (1-10) Eosinophils % (Manual) 0 % (0-3) 2 % (0-3) 0 % (0-3) Basophils % (Manual) 0 % (0-2) 0 % (0-2) 0 % (0-2) Band Neutrophils 0 % (0-8) 3 % (0-8) 3 % (0-8) Nucleated Red Blood Cells 1 /100 WBC Platelet Estimate Adequate Adequate Increased Platelet Morphology Normal Normal Normal Sodium Level 135 MMOL/L (136-145) 136 MMOL/L (136-145) 134 MMOL/L (136-145) Potassium Level 4.9 MMOL/L (3.5-5.1) 5.2 MMOL/L (3.5-5.1) 4.1 MMOL/L (3.5-5.1) Chloride Level 102 MMOL/L (98-107) 101 MMOL/L (98-107) 101 MMOL/L (98-107) Carbon Dioxide Level 25 MMOL/L (21-32) 27 MMOL/L (21-32) 24 MMOL/L (21-32) Anion Gap 8 mmol/L (5-15) 8 mmol/L (5-15) 9 mmol/L (5-15) Blood Urea Nitrogen 13 mg/dL (7-18) 12 mg/dL (7-18) 13 mg/dL (7-18) Creatinine 1.1 MG/DL (0.55-1.30) 1.4 MG/DL (0.55-1.30) 1.3 MG/DL (0.55-1.30) Estimat Glomerular Filtration Rate 50.3 mL/min (>60) 38.1 mL/min (>60) 41.5 mL/min (>60) Glucose Level 150 MG/DL (74-106) 90 MG/DL (74-106) 103 MG/DL (74-106) Calcium Level 8.2 MG/DL (8.5-10.1) 8.8 MG/DL (8.5-10.1) 8.7 MG/DL (8.5-10.1) Red Blood Cell Morphology Normal Normal Total Bilirubin 1.0 MG/DL (0.2-1.0) Aspartate Amino Transf (AST/SGOT) 19 U/L (15-37) Alanine Aminotransferase (ALT/SGPT) 19 U/L (12-78) Alkaline Phosphatase 151 U/L (46-116) Total Protein 6.5 G/DL (6.4-8.2) Albumin 2.1 G/DL (3.4-5.0) Globulin 4.4 g/dL Albumin/Globulin Ratio 0.5 (1.0-2.7) Test 01/20/19 08:05 White Blood Count 23.9 K/UL (4.8-10.8) Red Blood Count 3.99 M/UL (4.20-5.40) Hemoglobin 12.6 G/DL (12.0-16.0) Hematocrit 37.6 % (37.0-47.0) Mean Corpuscular Volume 94 FL (80-99) Mean Corpuscular Hemoglobin 31.7 PG (27.0-31.0) Mean Corpuscular Hemoglobin Concent 33.6 G/DL (32.0-36.0) Red Cell Distribution Width 13.3 % (11.6-14.8) Platelet Count 605 K/UL (150-450) Mean Platelet Volume 6.0 FL (6.5-10.1) Neutrophils (%) (Auto) % (45.0-75.0) Lymphocytes (%) (Auto) % (20.0-45.0) Monocytes (%) (Auto) % (1.0-10.0) Eosinophils (%) (Auto) % (0.0-3.0) Basophils (%) (Auto) % (0.0-2.0) Differential Total Cells Counted 100 Neutrophils % (Manual) 90 % (45-75) Lymphocytes % (Manual) 4 % (20-45) Monocytes % (Manual) 4 % (1-10) Eosinophils % (Manual) 0 % (0-3) Basophils % (Manual) 0 % (0-2) Band Neutrophils 2 % (0-8) Platelet Estimate Increased Platelet Morphology Normal Red Blood Cell Morphology Normal Sodium Level 136 MMOL/L (136-145) Potassium Level 4.2 MMOL/L (3.5-5.1) Chloride Level 100 MMOL/L (98-107) Carbon Dioxide Level 27 MMOL/L (21-32) Anion Gap 9 mmol/L (5-15) Blood Urea Nitrogen 15 mg/dL (7-18) Creatinine 1.3 MG/DL (0.55-1.30) Estimat Glomerular Filtration Rate 41.5 mL/min (>60) Glucose Level 98 MG/DL (74-106) Calcium Level 8.7 MG/DL (8.5-10.1) Total Bilirubin 0.9 MG/DL (0.2-1.0) Aspartate Amino Transf (AST/SGOT) 18 U/L (15-37) Alanine Aminotransferase (ALT/SGPT) 19 U/L (12-78) Alkaline Phosphatase 130 U/L (46-116) Total Protein 6.2 G/DL (6.4-8.2) Albumin 2.0 G/DL (3.4-5.0) Globulin 4.2 g/dL Albumin/Globulin Ratio 0.5 (1.0-2.7) Random Vancomycin Level 24.4 ug/mL Height (Feet): 5 Height (Inches): 3.00 Weight (Pounds): 130 Kleynberg,Roberto L. MD Jan 20, 2019 15:27
[2019-01-20 16:00] VITALS: BP 134/86
--- NOTE | 2019-01-20 16:22 | Surgery Progress Note ---
Surgery Progress Note Subjective Additional Comments Persistent leukocytosis. Labs noted. States she feels much better today. States she passed a lot of bowel movements and feels less distended and uncomfortable. KUB noted. Given findings CT ordered and recommended. Pending CT results Persistent leukocytosis likely reactive given patient's comorbidities Objective Last 24 Hour Vital Signs Date Time Temp Pulse Resp B/P (MAP) Pulse Ox O2 Delivery O2 Flow Rate FiO2 01/20/19 12:00 97.9 95 20 155/97 (116) 96 01/20/19 09:00 Nasal Cannula 2.0 01/20/19 08:00 97.6 88 20 155/97 (116) 96 01/20/19 04:00 97.3 85 19 154/95 (114) 97 01/20/19 00:00 97.8 93 19 144/96 (112) 96 01/19/19 22:30 98.3 01/19/19 21:00 Nasal Cannula 2.0 01/19/19 20:00 98.4 94 20 158/102 (120) 95 I&O Intake and Output 01/19/19 01/20/19 19:00 07:00 Intake Total 660.0 ml 550 ml Output Total 600 ml Balance 660.0 ml -50 ml Intake Oral 450 ml IV Total 210.0 ml 550 ml Other 600 ml # Voids 3 5 Cardiovascular: RSR Respiratory: clear Abdomen: soft, non-tender, present bowel sounds, non-distended Extremities: no edema, no tenderness, no cyanosis Laboratory Tests Test 01/19/19 16:40 01/20/19 08:05 White Blood Count 27.2 K/UL (4.8-10.8) *H 23.9 K/UL (4.8-10.8) *H Red Blood Count 4.19 M/UL (4.20-5.40) L 3.99 M/UL (4.20-5.40) L Hemoglobin 13.5 G/DL (12.0-16.0) 12.6 G/DL (12.0-16.0) Hematocrit 38.8 % (37.0-47.0) 37.6 % (37.0-47.0) Mean Corpuscular Volume 93 FL (80-99) 94 FL (80-99) Mean Corpuscular Hemoglobin 32.3 PG (27.0-31.0) H 31.7 PG (27.0-31.0) H Mean Corpuscular Hemoglobin Concent 34.8 G/DL (32.0-36.0) 33.6 G/DL (32.0-36.0) Red Cell Distribution Width 12.2 % (11.6-14.8) 13.3 % (11.6-14.8) Platelet Count 473 K/UL (150-450) H 605 K/UL (150-450) H Mean Platelet Volume 6.1 FL (6.5-10.1) L 6.0 FL (6.5-10.1) L Neutrophils (%) (Auto) % (45.0-75.0) % (45.0-75.0) Lymphocytes (%) (Auto) % (20.0-45.0) % (20.0-45.0) Monocytes (%) (Auto) % (1.0-10.0) % (1.0-10.0) Eosinophils (%) (Auto) % (0.0-3.0) % (0.0-3.0) Basophils (%) (Auto) % (0.0-2.0) % (0.0-2.0) Differential Total Cells Counted 100 100 Neutrophils % (Manual) 91 % (45-75) H 90 % (45-75) H Lymphocytes % (Manual) 3 % (20-45) L 4 % (20-45) L Monocytes % (Manual) 3 % (1-10) 4 % (1-10) Eosinophils % (Manual) 0 % (0-3) 0 % (0-3) Basophils % (Manual) 0 % (0-2) 0 % (0-2) Band Neutrophils 3 % (0-8) 2 % (0-8) Platelet Estimate Increased H Increased H Platelet Morphology Normal Normal Red Blood Cell Morphology Normal Normal Sodium Level 134 MMOL/L (136-145) L 136 MMOL/L (136-145) Potassium Level 4.1 MMOL/L (3.5-5.1) 4.2 MMOL/L (3.5-5.1) Chloride Level 101 MMOL/L (98-107) 100 MMOL/L (98-107) Carbon Dioxide Level 24 MMOL/L (21-32) 27 MMOL/L (21-32) Anion Gap 9 mmol/L (5-15) 9 mmol/L (5-15) Blood Urea Nitrogen 13 mg/dL (7-18) 15 mg/dL (7-18) Creatinine 1.3 MG/DL (0.55-1.30) 1.3 MG/DL (0.55-1.30) Estimat Glomerular Filtration Rate 41.5 mL/min (>60) 41.5 mL/min (>60) Glucose Level 103 MG/DL (74-106) 98 MG/DL (74-106) Calcium Level 8.7 MG/DL (8.5-10.1) 8.7 MG/DL (8.5-10.1) Total Bilirubin 1.0 MG/DL (0.2-1.0) 0.9 MG/DL (0.2-1.0) Aspartate Amino Transf (AST/SGOT) 19 U/L (15-37) 18 U/L (15-37) Alanine Aminotransferase (ALT/SGPT) 19 U/L (12-78) 19 U/L (12-78) Alkaline Phosphatase 151 U/L (46-116) H 130 U/L (46-116) H Total Protein 6.5 G/DL (6.4-8.2) 6.2 G/DL (6.4-8.2) L Albumin 2.1 G/DL (3.4-5.0) L 2.0 G/DL (3.4-5.0) L Globulin 4.4 g/dL 4.2 g/dL Albumin/Globulin Ratio 0.5 (1.0-2.7) L 0.5 (1.0-2.7) L Vancomycin Level Trough 27.3 ug/mL (5.0-12.0) H Random Vancomycin Level 24.4 ug/mL Plan Problems: (1) Abdominal pain Assessment & Plan: 63-year-old female patient with history of recently diagnosed pancreatic cancer in November 2018 presented to the emergency room at [facility] [place] with complaint of abdominal pain for approximately 1 hour. Patient is status post a biliary drain placement at [facility] approximately 1 week ago. She reported that she had a first treatment of chemotherapy this past Thursday. The patient denied any nausea vomiting, denies any constipation or diarrhea. She states her pain medication was unable to relieve her pain. no fever or chills. labs as below. C Tnoted. surgery called to assist with care and management. tube checked okay for diet leave tube in place with cap stable otherwise from surgical standpoint no acute surgical intervention planned iv fluids trend labs will monitor and follow with exam thank you (2) Biliary drain displacement Assessment & Plan: Daughter was able to inform me with a lot of history. Seems patient unresectable initially and attempted biliary drain placed endoscopically but unsuccessful. A external biliary drain was placed by radiology. Would patient was getting her Port-A-Cath placed a another radiologist felt he could place a internal/external biliary drain and he was able to successfully place a internal/external biliary drain. Had the trade Since. Fell off and she has been without it to drainage recently. In evaluating the trade she has some bilious output from the drain and on imaging drain looks to be appropriately placed. Labs reviewed stable. drain placed to gravity as leaking Drain putting out a ton since placed on 2 bag IMPRESSION: 1. Appropriately positioned percutaneous left biliary drain with mild intrahepatic biliary ductal dilatation. 2. Ill-defined pancreatic head/proximal body mass, likely corresponding to stated history of pancreatic neoplasm. Please note evaluation of size and vascular involvement of pancreatic masses is incomplete prior examinations and without multiphasic pancreatic protocol. 3. 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 SMV confluence is not visualized. 4. Color wall thickening with pericholecystic fluid; in the absence of distended gallbladder, these findings are critical for acute pancreatitis and clinical correlation is recommended. Transhepatic biliary drain noted. 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 Abnormal liver with area of peripheral hypoechogenicity along the posterior right lobe margin. Suggest further evaluation with contrast CT. Obscured pancreas and aorta due to bowel gas. (3) Pancreatic cancer Assessment & Plan: Pancreatic cancer, non-resectable, based on patient's info. Had a Abdominal pelvis CT reviewed 1. Appropriately positioned percutaneous left biliary drain with mild intrahepatic biliary ductal dilatation. 2. Ill- defined pancreatic head/proximal body mass, likely corresponding to stated history of pancreatic neoplasm. Please note evaluation of size and vascular involvement of pancreatic masses is incomplete prior examinations and without multiphasic pancreatic protocol. 3. 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 She has already started rx Jim Gates Jan 20, 2019 16:22
--- NOTE | 2019-01-20 16:28 | Diagnostic Imaging Report ---
INDICATION: Chest and abdominal pain. History of pancreatic CA. Status post transhepatic biliary drainage. TECHNIQUE: Continuous helical transaxial imaging of the chest, abdomen and pelvis was obtained from the lung bases to the pubic symphysis during intravenous contrast administration. Multiple phases of enhancement obtained. Coronal 2-D reformats were also obtained. Study obtained in a Siemens sensation [address] Automatic Exposure Control was utilized. Total Dose length Product (DLP): 1854.[address] Dose Index Volume (CTDIvol): 92.3 mGy COMPARISON: 01/12/2019 CT abdomen pelvis FINDINGS: CT CHEST: There is mild emphysema in the upper lobes. There is a dense right basal consolidation. No adenopathy appreciated. Heart is unremarkable. Trace bilateral pleural effusions noted. CT ABDOMEN & PELVIS: There is an internal/external transhepatic biliary drainage catheter present. The catheter appears in good position with the distal end curled in the second portion of the duodenum. The biliary ducts are mildly prominent versus periportal edema without significant change in appearance compared to the study from 01/12/2019. Correlate with the biliary drainage catheter output clinically. The current study is notable for interval development of the moderate small bowel dilatation suspicious for bowel obstruction. There are relatively decompressed small caliber loops of the terminal ileum and distal small bowel in the right lower quadrant and pelvis. In addition the distended small bowel show some evidence of pneumatosis especially in the upper abdomen within the one of the segments. There is no free air. Development of a small amount of ascites noted. In addition there is fluid that has accumulated just deep to the anterior abdominal wall in the right lower quadrant and contiguous with the caudal margin of the capsule of the liver measuring 11 x 3 x 14 cm. The collection is mostly below the liver closely adherent to the anterior abdominal wall. Other areas of the nondependent slightly loculated appearing peritoneal fluid are noted in the area of Morison's pouch (6 x 5 cm) and below the axis of the right kidney. Generalized anasarca noted. Aortoiliac calcifications are moderate. There is a tiny cyst in the right kidney suspected. Kidneys are otherwise unremarkable. The gallbladder is contracted. Spleen is unremarkable. 2 deformities of several vertebra noted mild to moderate in degree. These appear old and involve L5, L3, L2, T12 vertebra. IMPRESSION: Interval development of moderate small bowel dilatation. Transition to relatively decompressed terminal ileum demonstrated indicating this is probably a mechanical bowel obstruction. Pneumatosis suspected within one of the proximal small bowel segments in the upper abdomen. No evidence of perforation. Development of multiloculated ascites with prominent collections contiguous with the caudal end of the right lobe of the liver capsule, Morison's pouch and inferior to the right kidney. Other generalized mild ascites noted as well. Internal/external transhepatic biliary drainage catheter in good position. No imaging evidence for catheter malfunction or biliary obstruction. Right basilar consolidation versus atelectasis. Correlate for pneumonia. Trace bilateral pleural effusions. Anasarca Other incidental findings as above. The CT scanner at [facility] is accredited by the [employer] and the scans are performed using dose optimization techniques as appropriate to a performed exam including Automatic Exposure control.
[2019-01-20] MEDS: Enoxaparin 60mg Inj SUBQ SCH (17:12)
--- NOTE | 2019-01-20 19:20 | NUR ---
NURSE NOTES: Received report from CAITIE Tatum. Pt AAO x 4, on room air. Biliary duct tube intact and drainage well by gravity. IV site intact and running D5 NS @ 50cc /hr. Ports for chemo on R chest intact. Fall precaution maintained. Hot pack applied on abd per pt request. Bed locked, lowest position, alarm on, side rails up x 2, call light within reach. Will continue to monitor.
--- NOTE | 2019-01-20 19:48 | NUR ---
HAND-OFF: Report given to CAITIE Nichols.
[2019-01-20 20:00] VITALS: BP 141/91
[2019-01-20] MEDS: Miralax 17gm pkt ORAL SCH ×2 (20:11→21:00)
[2019-01-20] MEDS: Zolpidem 5mg tab ORAL PRN (20:51)
[2019-01-21] VITALS: BP 128/89
[2019-01-21] MEDS: Piperacillin/Tazobactam 3.375 GM in NS 110 ML IVPB SCH ×4 (00:40→23:52)
[2019-01-21 04:00] VITALS: BP 126/70
[2019-01-21] MEDS: Enoxaparin 60mg Inj SUBQ SCH ×2 (05:13→17:54)
[2019-01-21] MEDS: D5NS 1,000 ML IV SCH ×2 (05:13→23:52)
[2019-01-21 06:40] LABS: HEMATOCRIT 36.1 % (37.0-47.0); HEMOGLOBIN 12.8 G/DL (12.0-16.0); MEAN CORPUSCULAR VOLUME 95 FL (80-99); PLATELET COUNT 701 K/UL (150-450); WHITE BLOOD COUNT 21.9 K/UL (4.8-10.8)
[2019-01-21 07:00] LABS: ALANINE AMINOTRANSFERASE 16 U/L (12-78); ALBUMIN 1.7 G/DL (3.4-5.0); ALBUMIN/GLOBULIN RATIO 0.4 (1.0-2.7); ALKALINE PHOSPHATASE 113 U/L (46-116); ANION GAP 9 mmol/L (5-15); ASPARTATE AMINO TRANSFERASE 15 U/L (15-37); BILIRUBIN,TOTAL 0.8 MG/DL (0.2-1.0); BLOOD UREA NITROGEN 14 mg/dL (7-18); CALCIUM 8.2 MG/DL (8.5-10.1); CARBON DIOXIDE 26 MMOL/L (21-32); CHLORIDE 103 MMOL/L (98-107); CREATININE 1.4 MG/DL (0.55-1.30); POTASSIUM 3.4 MMOL/L (3.5-5.1); SODIUM 138 MMOL/L (136-145)
--- NOTE | 2019-01-21 07:30 | NUR ---
HAND-OFF: Report given to CAITIE Lee.
--- NOTE | 2019-01-21 07:31 | NUR ---
NURSE NOTES: Received patient on bed awake. No SOB or cardiac distress. IV line intact and patent. Biliary drain patent. With an episode of watery stool. Patient cleaned and kept dry. HOB elevated. Bed locked in lowest position. Will continue plan of care.
[2019-01-21 08:00] VITALS: BP 138/79
--- NOTE | 2019-01-21 08:50 | General Progress Note ---
Assessment/Plan Assessment/Plan: (1) Intractable abdominal pain (2) Pancreatic cancer We will continue the Neurontin, Dilaudid and Fentanyl patch D/w Dr. Gonzales and he concurred. Subjective Date patient seen: Jan 21, 2019 Time patient seen: 08:00 - am Allergies: Coded Allergies: No Known Allergies (Unverified , 01/12/19) Subjective REVIEW OF SYSTEMS: Denies rash, fever, chills, sweating, dizziness, drowsiness, blurred vision, sore throat, change in weight. No shortness of breath or chest pain. No bowel or bladder incontinence. She is complaining of abdominal pain. SUBJECTIVE: Patient is in bed and reports that her pain is at a mild level at this time and is feeling much better. Fentanyl patch is on and has used 2 dilaudid in the last 24hrs. Feels that the Neurontin has helped. Objective Last 24 Hour Vital Signs Date Time Temp Pulse Resp B/P (MAP) Pulse Ox O2 Delivery O2 Flow Rate FiO2 01/21/19 04:00 97.3 78 19 126/70 (88) 95 01/21/19 00:00 97.3 86 19 128/89 (102) 92 01/20/19 21:00 Nasal Cannula 2.0 01/20/19 20:00 97.4 103 19 141/91 (108) 96 01/20/19 16:00 97.4 88 20 134/86 (102) 96 01/20/19 12:00 97.9 95 20 155/97 (116) 96 01/20/19 09:00 Nasal Cannula 2.0 Intake and Output 01/20/19 01/21/19 19:00 07:00 Intake Total 427.5 ml 1020.0 ml Output Total 500 ml 700 ml Balance -72.5 ml 320.0 ml Intake Oral 240 ml 360 ml IV Total 187.5 ml 660.0 ml Other 500 ml 700 ml # Voids 3 3 # Bowel Movements 3 1 Laboratory Tests 01/21/19 05:55: White Blood Count 21.9H, Red Blood Count 3.80L, Hemoglobin 12.8, Hematocrit 36.1L, Mean Corpuscular Volume 95, Mean Corpuscular Hemoglobin 33.6H, Mean Corpuscular Hemoglobin Concent 35.3, Red Cell Distribution Width 13.0, Platelet Count 701H, Mean Platelet Volume 5.9L, Neutrophils (%) (Auto) , Lymphocytes (%) (Auto) , Monocytes (%) (Auto) , Eosinophils (%) (Auto) , Basophils (%) (Auto) , Neutrophils % (Manual) [Pending], Lymphocytes % (Manual) [Pending], Platelet Estimate [Pending], Platelet Morphology [Pending], Sodium Level 138, Potassium Level 3.4L, Chloride Level 103, Carbon Dioxide Level 26, Anion Gap 9, Blood Urea Nitrogen 14, Creatinine 1.4H, Estimat Glomerular Filtration Rate 38.1, Glucose Level 76, Calcium Level 8.2L, Total Bilirubin 0.8, Aspartate Amino Transf (AST/SGOT) 15, Alanine Aminotransferase (ALT/SGPT) 16, Alkaline Phosphatase 113, Total Protein 5.7L, Albumin 1.7L, Globulin 4.0, Albumin/ Globulin Ratio 0.4L Height (Feet): 5 Height (Inches): 3.00 Weight (Pounds): 130 Objective GENERAL: Alert, awake, and oriented. LUNGS: Clear bilaterally. HEART: S1, S2 regular. ABDOMEN: Tenderness to palpation with biliary stent noted. BACK: Range of motion is decreased in flexion, extension. EXTREMITIES: No cyanosis. No clubbing. No edema. NEURO: No changes. Doug Reid Jan 21, 2019 08:50
--- NOTE | 2019-01-21 08:55 | General Progress Note ---
Assessment/Plan Problem List: (1) SOB (shortness of breath) ICD Codes: R06.02 - Shortness of breath SNOMED: 721899157 (2) Nausea & vomiting ICD Codes: R11.2 - Nausea with vomiting, unspecified SNOMED: 71443705 (3) Malnutrition ICD Codes: E46 - Unspecified protein-calorie malnutrition SNOMED: 01217679 (4) UTI (urinary tract infection) ICD Codes: N39.0 - Urinary tract infection, site not specified SNOMED: 53046883 (5) Abdominal pain ICD Codes: R10.9 - Unspecified abdominal pain SNOMED: 10454075 (6) Biliary drain displacement ICD Codes: T85.520A - Displacement of bile duct prosthesis, initial encounter SNOMED: 189843351 (7) Pancreatic cancer ICD Codes: C25.9 - Malignant neoplasm of pancreas, unspecified SNOMED: 949745044 Status: unchanged Assessment/Plan: pt diet pain control abx cbc bmp am dc plan snf Subjective Constitutional: Reports: weakness Allergies: Coded Allergies: No Known Allergies (Unverified , 01/12/19) All Systems: reviewed and negative except above Subjective o2nc sl nausea abd pain Objective Last 24 Hour Vital Signs Date Time Temp Pulse Resp B/P (MAP) Pulse Ox O2 Delivery O2 Flow Rate FiO2 01/21/19 04:00 97.3 78 19 126/70 (88) 95 01/21/19 00:00 97.3 86 19 128/89 (102) 92 01/20/19 21:00 Nasal Cannula 2.0 01/20/19 20:00 97.4 103 19 141/91 (108) 96 01/20/19 16:00 97.4 88 20 134/86 (102) 96 01/20/19 12:00 97.9 95 20 155/97 (116) 96 01/20/19 09:00 Nasal Cannula 2.0 Intake and Output 01/20/19 01/21/19 19:00 07:00 Intake Total 427.5 ml 1020.0 ml Output Total 500 ml 700 ml Balance -72.5 ml 320.0 ml Intake Oral 240 ml 360 ml IV Total 187.5 ml 660.0 ml Other 500 ml 700 ml # Voids 3 3 # Bowel Movements 3 1 Laboratory Tests 01/21/19 05:55: White Blood Count 21.9H, Red Blood Count 3.80L, Hemoglobin 12.8, Hematocrit 36.1L, Mean Corpuscular Volume 95, Mean Corpuscular Hemoglobin 33.6H, Mean Corpuscular Hemoglobin Concent 35.3, Red Cell Distribution Width 13.0, Platelet Count 701H, Mean Platelet Volume 5.9L, Neutrophils (%) (Auto) , Lymphocytes (%) (Auto) , Monocytes (%) (Auto) , Eosinophils (%) (Auto) , Basophils (%) (Auto) , Neutrophils % (Manual) [Pending], Lymphocytes % (Manual) [Pending], Platelet Estimate [Pending], Platelet Morphology [Pending], Sodium Level 138, Potassium Level 3.4L, Chloride Level 103, Carbon Dioxide Level 26, Anion Gap 9, Blood Urea Nitrogen 14, Creatinine 1.4H, Estimat Glomerular Filtration Rate 38.1, Glucose Level 76, Calcium Level 8.2L, Total Bilirubin 0.8, Aspartate Amino Transf (AST/SGOT) 15, Alanine Aminotransferase (ALT/SGPT) 16, Alkaline Phosphatase 113, Total Protein 5.7L, Albumin 1.7L, Globulin 4.0, Albumin/ Globulin Ratio 0.4L Height (Feet): 5 Height (Inches): 3.00 Weight (Pounds): 130 General Appearance: lethargic EENT: normal ENT inspection Neck: normal alignment Cardiovascular: normal peripheral pulses, normal rate, regular rhythm Respiratory/Chest: chest wall non-tender, lungs clear, normal breath sounds Abdomen: normal bowel sounds, non tender, soft Extremities: normal inspection Edema: no edema noted Arm (L), no edema noted Arm (R), no edema noted Leg (L), no edema noted Leg (R), no edema noted Pedal (L), no edema noted Pedal (R), no edema noted Generalized Neurologic: responsive, motor weakness Skin: normal pigmentation, warm/dry Elvis Luke DO Jan 21, 2019 08:55
[2019-01-21] MEDS: Lactulose 10gm/15ml UDC ORAL SCH ×3 (09:17→17:52)
[2019-01-21] MEDS: Docusate 100mg cap ORAL SCH ×2 (09:17→17:52)
[2019-01-21] MEDS: Pantoprazole Inj IVP SCH (09:18)
[2019-01-21] MEDS: Azithromycin 250mg tab ORAL SCH (09:18)
[2019-01-21] MEDS: HYDROmorphone 4mg tab ORAL PRN ×4 (09:29→23:53)
--- NOTE | 2019-01-21 11:15 | Hematology/Onc Progress Note ---
Assessment/Plan Assessment/Plan Assessment/Plan # Pancreatic cancer, non-resectable, based on patient's info. Had a Abdominal pelvis CT reviewed 1. Appropriately positioned percutaneous left biliary drain with mild intrahepatic biliary ductal dilatation. 2. Ill-defined pancreatic head/proximal body mass, likely corresponding to stated history of pancreatic neoplasm. Please note evaluation of size and vascular involvement of pancreatic masses is incomplete prior examinations and without multiphasic pancreatic protocol. 3. 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 She has already started rx. --> gi recs noted No plans for GI procedures at this time --> surgical recommendations, no interventions at this time --> likely to continue chemo and XRT as needed with Dr. Elias Bernal (has received one chemo session) --> CA 19.9 688, in general with this presentation, poor prognosis --> if doesn't get chemo soon, likely to deteriorate, may be hospice candidate # Portal vein thrombosis with abd pain (MAY BE due to tumor encasemenet) --> may be contributor for abdominal pain --> appears to be chronic portal vein thrombosis on imaging --> minimize pain meds as much as possible --> started on lovenox, okay to transition to noac once discharged # Anemia of myelosuppressive chemo --> okay to continue on chemo at this time --> epo as stimulating factor if drops --> dw patient risks of dvt/VTE # Leukocytosis is likely due to pna --> agree to trend, improved --> abx as per id --> wbc trend 22-->20-->18k-->34k-->22 # Transaminitis --> Trend LFTs --> per gi --> advance diet as tolerated # Dvt ppx scds Appreciate consultation and dw RN Subjective Constitutional: Denies: no symptoms, chills, fever, malaise, weakness, other HEENT: Denies: no symptoms, eye pain, blurred vision, tearing, double vision, ear pain, ear discharge, nose pain, nose congestion, throat pain, throat swelling, mouth pain, mouth swelling, other Cardiovascular: Denies: no symptoms, chest pain, edema, irregular heart rate, lightheadedness, palpitations, syncope, other Respiratory: Denies: no symptoms, cough, shortness of breath, SOB with excertion, SOB at rest, sputum, wheezing, other Gastrointestinal/Abdominal: Denies: no symptoms, abdomen distended, abdominal pain, black stools, tarry stools, blood in stool, constipated, diarrhea, difficulty swallowing, nausea, poor appetite, poor fluid intake, rectal bleeding , vomiting, other Endocrine: Denies: no symptoms, excessive sweating, flushing, intolerance to cold, intolerance to heat, increased hunger, increased thirst, increased urine, unexplained weight gain, unexplained weight loss, other Hematologic/Lymphatic: Denies: no symptoms, anemia, easy bleeding, easy bruising, adenopathy, other Allergies: Coded Allergies: No Known Allergies (Unverified , 01/12/19) Subjective 01/13: no events to report, no f/c, no night sweats 01/14: no bleeding, on meds, ivf 01/15: no major changes, dw patient, some minor abd pain 01/18: no major events, drain is to gravity, seen by surg, no bleeidng 01/19: awake, alert, getting dressed this am, labs noted 01/20: no events, no bleeding reported, no major changes, no fc 01/21: appears on ct scan that she has a chronic portal vein thrombosis, reviewed results with rad Objective Objective Current Medications Medications (Trade) Dose Ordered Sig/Zuleima Route PRN Reason Start Time Stop Time Status Last Admin Dose Admin Acetaminophen (Tylenol) 650 mg Q8H PRN ORAL Mild Pain/Temp > 100.5 01/12/19 17:30 02/11/19 17:29 01/13/19 17:27 Azithromycin (Zithromax) 500 mg DAILY ORAL 01/15/19 14:00 01/22/19 13:59 01/21/19 09:18 Bisacodyl (Dulcolax) 10 mg BIDPRN PRN RECTAL Constipation 01/16/19 07:45 02/15/19 07:44 01/19/19 18:34 Dextrose (Dextrose 50%) 25 ml Q30M PRN IV Hypoglycemia 01/12/19 13:45 02/11/19 13:44 Dextrose (Dextrose 50%) 50 ml Q30M PRN IV Hypoglycemia 01/12/19 13:45 02/11/19 13:44 Dextrose/Sodium Chloride 1,000 ml @ 50 mls/hr Q20H IV 01/19/19 12:57 02/18/19 12:56 01/21/19 05:13 Docusate Sodium (Colace) 100 mg TWICE A DAY ORAL 01/15/19 18:00 02/14/19 17:59 01/21/19 09:17 Enoxaparin Sodium (Lovenox) 60 mg Q12HR@0600,1800 SUBQ 01/20/19 18:00 02/19/19 17:59 01/21/19 05:13 Fentanyl (Duragesic) 1 patch Q72H TDERMAL 01/19/19 12:00 01/26/19 11:59 01/19/19 12:08 Folic Acid (Folate) 5 mg DAILY ORAL 01/17/19 09:45 02/16/19 09:44 01/21/19 09:17 Gabapentin (Neurontin) 300 mg THREE TIMES A DAY ORAL 01/19/19 18:00 02/18/19 17:59 01/21/19 09:17 Hydromorphone HCl (Dilaudid) 4 mg Q4H PRN ORAL severe breakthrough pain 01/18/19 14:12 01/25/19 14:11 01/21/19 09:29 Lactulose (Cephulac) 10 gm THREE TIMES A DAY ORAL 01/16/19 13:00 02/15/19 12:59 01/21/19 09:17 Methylnaltrexone [place] (Relistor) 12 mg QOD SUBQ 01/20/19 09:15 02/19/19 09:14 01/20/19 09:49 Miscellaneous Medication (fentaNYL Destruction) 1 ea Q72H MISC 01/19/19 12:00 02/18/19 11:59 01/19/19 12:09 Naloxone HCl (Narcan) 0.1 mg Q5M PRN IV Sedation scale 3 or 4 01/16/19 12:00 02/15/19 11:59 Ondansetron HCl (Zofran) 4 mg Q6H PRN IVP Nausea & Vomiting 01/12/19 13:45 02/11/19 13:44 01/20/19 20:04 Pantoprazole (Protonix) 40 mg DAILY IVP 01/12/19 16:45 02/11/19 16:44 01/21/19 09:18 Piperacillin Sod/ Tazobactam Sod 3.375 gm/Sodium Chloride 110 ml @ 27.5 mls/hr Q8H IVPB 01/14/19 17:00 01/23/19 16:59 01/21/19 10:22 Polyethylene Glycol (Miralax) 17 gm BEDTIME ORAL 01/16/19 21:00 02/15/19 20:59 01/20/19 21:00 Potassium Chloride (K-Dur) 40 meq DAILY ORAL 01/21/19 09:45 02/20/19 09:44 01/21/19 10:22 Simethicone (Mylicon) 80 mg BIDPRN PRN ORAL gas 01/18/19 21:45 02/17/19 21:44 01/19/19 23:36 Vancomycin HCl (Vanco rx to dose) 1 ea DAILY PRN MISC Per rx protocol 01/14/19 20:30 02/13/19 20:29 Zolpidem Tartrate (Ambien) 5 mg HSPRN PRN ORAL Insomnia 01/20/19 06:15 01/27/19 06:14 01/20/19 20:51 Last 24 Hour Vital Signs Date Time Temp Pulse Resp B/P (MAP) Pulse Ox O2 Delivery O2 Flow Rate FiO2 01/21/19 08:00 98.2 81 20 138/79 (98) 96 01/21/19 04:00 97.3 78 19 126/70 (88) 95 01/21/19 00:00 97.3 86 19 128/89 (102) 92 01/20/19 21:00 Nasal Cannula 2.0 01/20/19 20:00 97.4 103 19 141/91 (108) 96 01/20/19 16:00 97.4 88 20 134/86 (102) 96 01/20/19 12:00 97.9 95 20 155/97 (116) 96 01/20/19 09:00 Nasal Cannula 2.0 01/20/19 08:00 97.6 88 20 155/97 (116) 96 01/20/19 04:00 97.3 85 19 154/95 (114) 97 01/20/19 00:00 97.8 93 19 144/96 (112) 96 01/19/19 22:30 98.3 01/19/19 21:00 Nasal Cannula 2.0 01/19/19 20:00 98.4 94 20 158/102 (120) 95 01/19/19 16:00 98.3 88 19 167/105 (125) 99 01/19/19 11:42 97.3 84 19 153/87 (109) 96 Intake and Output 01/20/19 01/21/19 19:00 07:00 Intake Total 427.5 ml 1020.0 ml Output Total 500 ml 700 ml Balance -72.5 ml 320.0 ml Intake Oral 240 ml 360 ml IV Total 187.5 ml 660.0 ml Other 500 ml 700 ml # Voids 3 3 # Bowel Movements 3 1 Labs Test 01/19/19 06:15 01/19/19 16:40 01/20/19 08:05 01/21/19 05:55 White Blood Count 25.4 K/UL (4.8-10.8) 27.2 K/UL (4.8-10.8) 23.9 K/UL (4.8-10.8) 21.9 K/UL (4.8-10.8) Red Blood Count 3.98 M/UL (4.20-5.40) 4.19 M/UL (4.20-5.40) 3.99 M/UL (4.20-5.40) 3.80 M/UL (4.20-5.40) Hemoglobin 12.9 G/DL (12.0-16.0) 13.5 G/DL (12.0-16.0) 12.6 G/DL (12.0-16.0) 12.8 G/DL (12.0-16.0) Hematocrit 37.9 % (37.0-47.0) 38.8 % (37.0-47.0) 37.6 % (37.0-47.0) 36.1 % (37.0-47.0) Mean Corpuscular Volume 95 FL (80-99) 93 FL (80-99) 94 FL (80-99) 95 FL (80- 99) Mean Corpuscular Hemoglobin 32.3 PG (27.0-31.0) 32.3 PG (27.0-31.0) 31.7 PG (27.0-31.0) 33.6 PG (27.0-31.0) Mean Corpuscular Hemoglobin Concent 33.9 G/DL (32.0-36.0) 34.8 G/DL (32.0-36.0) 33.6 G/DL (32.0-36.0) 35.3 G/DL (32.0-36.0) Red Cell Distribution Width 13.2 % (11.6-14.8) 12.2 % (11.6-14.8) 13.3 % (11.6-14.8) 13.0 % (11.6-14.8) Platelet Count 453 K/UL (150-450) 473 K/UL (150-450) 605 K/UL (150-450) 701 K/UL (150-450) Mean Platelet Volume 6.4 FL (6.5-10.1) 6.1 FL (6.5-10.1) 6.0 FL (6.5-10.1) 5.9 FL (6.5-10.1) Neutrophils (%) (Auto) % (45.0-75.0) % (45.0-75.0) % (45.0-75.0) % (45.0- 75.0) Lymphocytes (%) (Auto) % (20.0-45.0) % (20.0-45.0) % (20.0-45.0) % (20.0- 45.0) Monocytes (%) (Auto) % (1.0-10.0) % (1.0-10.0) % (1.0-10.0) % (1.0-10.0) Eosinophils (%) (Auto) % (0.0-3.0) % (0.0-3.0) % (0.0-3.0) % (0.0-3.0) Basophils (%) (Auto) % (0.0-2.0) % (0.0-2.0) % (0.0-2.0) % (0.0-2.0) Differential Total Cells Counted 100 100 100 100 Neutrophils % (Manual) 85 % (45-75) 91 % (45-75) 90 % (45-75) 83 % (45-75) Lymphocytes % (Manual) 5 % (20-45) 3 % (20-45) 4 % (20-45) 6 % (20-45) Monocytes % (Manual) 5 % (1-10) 3 % (1-10) 4 % (1-10) 7 % (1-10) Eosinophils % (Manual) 2 % (0-3) 0 % (0-3) 0 % (0-3) 1 % (0-3) Basophils % (Manual) 0 % (0-2) 0 % (0-2) 0 % (0-2) 0 % (0-2) Band Neutrophils 3 % (0-8) 3 % (0-8) 2 % (0-8) 3 % (0-8) Platelet Estimate Adequate Increased Increased Increased Platelet Morphology Normal Normal Normal Normal Red Blood Cell Morphology Normal Normal Normal Sodium Level 136 MMOL/L (136-145) 134 MMOL/L (136-145) 136 MMOL/L (136-145) 138 MMOL/L (136-145) Potassium Level 5.2 MMOL/L (3.5-5.1) 4.1 MMOL/L (3.5-5.1) 4.2 MMOL/L (3.5-5.1) 3.4 MMOL/L (3.5-5.1) Chloride Level 101 MMOL/L (98-107) 101 MMOL/L (98-107) 100 MMOL/L (98-107) 103 MMOL/L (98-107) Carbon Dioxide Level 27 MMOL/L (21-32) 24 MMOL/L (21-32) 27 MMOL/L (21-32) 26 MMOL/L (21-32) Anion Gap 8 mmol/L (5-15) 9 mmol/L (5-15) 9 mmol/L (5-15) 9 mmol/L (5-15) Blood Urea Nitrogen 12 mg/dL (7-18) 13 mg/dL (7-18) 15 mg/dL (7-18) 14 mg/dL (7-18) Creatinine 1.4 MG/DL (0.55-1.30) 1.3 MG/DL (0.55-1.30) 1.3 MG/DL (0.55-1.30) 1.4 MG/DL (0.55-1.30) Estimat Glomerular Filtration Rate 38.1 mL/min (>60) 41.5 mL/min (>60) 41.5 mL/min (>60) 38.1 mL/min (>60) Glucose Level 90 MG/DL (74-106) 103 MG/DL (74-106) 98 MG/DL (74-106) 76 MG/DL (74-106) Calcium Level 8.8 MG/DL (8.5-10.1) 8.7 MG/DL (8.5-10.1) 8.7 MG/DL (8.5-10.1) 8.2 MG/DL (8.5-10.1) Total Bilirubin 1.0 MG/DL (0.2-1.0) 0.9 MG/DL (0.2-1.0) 0.8 MG/DL (0.2-1.0) Aspartate Amino Transf (AST/SGOT) 19 U/L (15-37) 18 U/L (15-37) 15 U/L (15-37) Alanine Aminotransferase (ALT/SGPT) 19 U/L (12-78) 19 U/L (12-78) 16 U/L (12-78) Alkaline Phosphatase 151 U/L (46-116) 130 U/L (46-116) 113 U/L (46-116) Total Protein 6.5 G/DL (6.4-8.2) 6.2 G/DL (6.4-8.2) 5.7 G/DL (6.4-8.2) Albumin 2.1 G/DL (3.4-5.0) 2.0 G/DL (3.4-5.0) 1.7 G/DL (3.4-5.0) Globulin 4.4 g/dL 4.2 g/dL 4.0 g/dL Albumin/Globulin Ratio 0.5 (1.0-2.7) 0.5 (1.0-2.7) 0.4 (1.0-2.7) Vancomycin Level Trough 27.3 ug/mL (5.0-12.0) Random Vancomycin Level 24.4 ug/mL Height (Feet): 5 Height (Inches): 3.00 Weight (Pounds): 130 Roberto Davidson MD Jan 21, 2019 11:15
--- NOTE | 2019-01-21 11:21 | Nephrology Progress Note ---
Assessment/Plan Problem List: (1) Electrolyte abnormality (2) Pancreatic cancer (3) Biliary drain displacement (4) Abdominal pain (5) Malnutrition Assessment HypoKalemia HypoNatremia Abdominal pain. Nausea. Vomiting. UTI. Pancreatic cancer. Biliary drain displacement Malnutrition. Anemia Plan K supplement as needed, check labs change IV to isotonic solution monitor lytes start PO Folic acid Subjective ROS Limited/Unobtainable: No Constitutional: Reports: malaise Objective Objective Last 24 Hour Vital Signs Date Time Temp Pulse Resp B/P (MAP) Pulse Ox O2 Delivery O2 Flow Rate FiO2 01/21/19 08:00 98.2 81 20 138/79 (98) 96 01/21/19 04:00 97.3 78 19 126/70 (88) 95 01/21/19 00:00 97.3 86 19 128/89 (102) 92 01/20/19 21:00 Nasal Cannula 2.0 01/20/19 20:00 97.4 103 19 141/91 (108) 96 01/20/19 16:00 97.4 88 20 134/86 (102) 96 01/20/19 12:00 97.9 95 20 155/97 (116) 96 Intake and Output 01/20/19 01/21/19 19:00 07:00 Intake Total 427.5 ml 1020.0 ml Output Total 500 ml 700 ml Balance -72.5 ml 320.0 ml Intake Oral 240 ml 360 ml IV Total 187.5 ml 660.0 ml Other 500 ml 700 ml # Voids 3 3 # Bowel Movements 3 1 Laboratory Tests 01/21/19 05:55: White Blood Count 21.9H, Red Blood Count 3.80L, Hemoglobin 12.8, Hematocrit 36.1L, Mean Corpuscular Volume 95, Mean Corpuscular Hemoglobin 33.6H, Mean Corpuscular Hemoglobin Concent 35.3, Red Cell Distribution Width 13.0, Platelet Count 701H, Mean Platelet Volume 5.9L, Neutrophils (%) (Auto) , Lymphocytes (%) (Auto) , Monocytes (%) (Auto) , Eosinophils (%) (Auto) , Basophils (%) (Auto) , Differential Total Cells Counted 100, Neutrophils % (Manual) 83H, Lymphocytes % (Manual) 6L, Monocytes % (Manual) 7, Eosinophils % (Manual) 1, Basophils % ( Manual) 0, Band Neutrophils 3, Platelet Estimate IncreasedH, Platelet Morphology Normal, Sodium Level 138, Potassium Level 3.4L, Chloride Level 103, Carbon Dioxide Level 26, Anion Gap 9, Blood Urea Nitrogen 14, Creatinine 1.4H, Estimat Glomerular Filtration Rate 38.1, Glucose Level 76, Calcium Level 8.2L, Total Bilirubin 0.8, Aspartate Amino Transf (AST/SGOT) 15, Alanine Aminotransferase (ALT/SGPT) 16, Alkaline Phosphatase 113, Total Protein 5.7L, Albumin 1.7L, Globulin 4.0, Albumin/Globulin Ratio 0.4L Height (Feet): 5 Height (Inches): 3.00 Weight (Pounds): 130 General Appearance: no apparent distress Cardiovascular: normal rate Respiratory/Chest: decreased breath sounds Abdomen: distended Objective no change Kapil Turcios MD Jan 21, 2019 11:21
[2019-01-21 12:00] VITALS: BP 149/99
--- NOTE | 2019-01-21 13:08 | Infectious Diseases Prog Note ---
Assessment/Plan Assessment/Plan Fever 01/13, SP Leukocytosis, improving after large bowel movement 01/14 bcx ng tumor related? Ileus related? biloma related? atelectasis? PNA, CAP? -CXR: Patchy consolidation in the right lower lung, concerning for pneumonia. Mild pulmonary vascular congestion. -flu swab negative urine legionella antigen negative Abdominal pain Pancreatitis? lipase negative 01/12 CT abd/p: Appropriately positioned percutaneous left biliary drain with mild intrahepatic biliary ductal dilatation. Ill-defined pancreatic head/ proximal body mass, likely corresponding to stated history of pancreatic neoplasm. Please note evaluation of size and vascular involvement of pancreatic masses is incomplete prior examinations and without multiphasic pancreatic protocol. 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 SMV confluence is not visualized. Gallbladder wall thickening with pericholecystic fluid; in the absence of distended gallbladder, these findings are critical for acute pancreatitis and clinical correlation is recommended. 01/19 US Abd: Transhepatic biliary drain noted. 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 Abnormal liver with area of peripheral hypoechogenicity along the posterior right lobe margin. Suggest further evaluation with contrast CT. Obscured pancreas and aorta due to bowel gas. Trace ascites 01/20 CT A/P: Interval development of moderate small bowel dilatation. Transition to relatively decompressed terminal ileum demonstrated indicating this is probably a mechanical bowel obstruction. Pneumatosis suspected within one of the proximal small bowel segments in the upper abdomen. No evidence of perforation. Development of multiloculated ascites with prominent collections contiguous with the caudal end of the right lobe of the liver capsule, Morison's pouch and inferior to the right kidney. Other generalized mild ascites noted as well. Internal/external transhepatic biliary drainage catheter in good position. No imaging evidence for catheter malfunction or biliary obstruction. Right basilar consolidation versus atelectasis. Correlate for pneumonia. Trace bilateral pleural effusions. Anasarca recently diagnosed pancreatic CA 11/2018 - s/p biliary drain 1 week GEOPH[facility]RAF[facility] at [facility] -sp 1st chemotherapy treatment 01/10/19 tobacco abuse Plan: -cont empiric Zosyn and IV Vancomycin #7. plan for 10-14 day therapy. -cont Azithromycin #7/7 for mycoplasma coverage 01/17 DC Tamiflu #2 indium scan planned for Thursday, if WBC continues to improve, may not need -f/u cx -Monitor CBC/CMP, temperatures -f/u Bcx x2 -aspiration precautions Thank you for this consultation. Will continue to follow along with you. Subjective Allergies: Coded Allergies: No Known Allergies (Unverified , 01/12/19) Subjective Afebrile. Leukocytosis slightly better Reports pain Still constipated Objective Vital Signs Last 24 Hour Vital Signs Date Time Temp Pulse Resp B/P (MAP) Pulse Ox O2 Delivery O2 Flow Rate FiO2 01/21/19 12:00 97.9 111 21 149/99 (116) 99 01/21/19 09:00 Nasal Cannula 2.0 01/21/19 08:00 98.2 81 20 138/79 (98) 96 01/21/19 04:00 97.3 78 19 126/70 (88) 95 01/21/19 00:00 97.3 86 19 128/89 (102) 92 01/20/19 21:00 Nasal Cannula 2.0 01/20/19 20:00 97.4 103 19 141/91 (108) 96 01/20/19 16:00 97.4 88 20 134/86 (102) 96 Height (Feet): 5 Height (Inches): 3.00 Weight (Pounds): 130 Objective Gen: NAD CV: RRR Resp: RRR Abd: hypoactive BS+. Diffusely TTP but worse RUQ. Ext: no edema Neuro: alert. Microbiology Date/Time Source Procedure Growth Status 01/19/19 05:00 Nose MRSA Culture - Final NO METHICILLIN RESISTANT STAPH AUREUS... Complete Laboratory Tests Test 01/21/19 05:55 White Blood Count 21.9 K/UL (4.8-10.8) H Red Blood Count 3.80 M/UL (4.20-5.40) L Hemoglobin 12.8 G/DL (12.0-16.0) Hematocrit 36.1 % (37.0-47.0) L Mean Corpuscular Volume 95 FL (80-99) Mean Corpuscular Hemoglobin 33.6 PG (27.0-31.0) H Mean Corpuscular Hemoglobin Concent 35.3 G/DL (32.0-36.0) Red Cell Distribution Width 13.0 % (11.6-14.8) Platelet Count 701 K/UL (150-450) H Mean Platelet Volume 5.9 FL (6.5-10.1) L Neutrophils (%) (Auto) % (45.0-75.0) Lymphocytes (%) (Auto) % (20.0-45.0) Monocytes (%) (Auto) % (1.0-10.0) Eosinophils (%) (Auto) % (0.0-3.0) Basophils (%) (Auto) % (0.0-2.0) Differential Total Cells Counted 100 Neutrophils % (Manual) 83 % (45-75) H Lymphocytes % (Manual) 6 % (20-45) L Monocytes % (Manual) 7 % (1-10) Eosinophils % (Manual) 1 % (0-3) Basophils % (Manual) 0 % (0-2) Band Neutrophils 3 % (0-8) Platelet Estimate Increased H Platelet Morphology Normal Sodium Level 138 MMOL/L (136-145) Potassium Level 3.4 MMOL/L (3.5-5.1) L Chloride Level 103 MMOL/L (98-107) Carbon Dioxide Level 26 MMOL/L (21-32) Anion Gap 9 mmol/L (5-15) Blood Urea Nitrogen 14 mg/dL (7-18) Creatinine 1.4 MG/DL (0.55-1.30) H Estimat Glomerular Filtration Rate 38.1 mL/min (>60) Glucose Level 76 MG/DL (74-106) Calcium Level 8.2 MG/DL (8.5-10.1) L Total Bilirubin 0.8 MG/DL (0.2-1.0) Aspartate Amino Transf (AST/SGOT) 15 U/L (15-37) Alanine Aminotransferase (ALT/SGPT) 16 U/L (12-78) Alkaline Phosphatase 113 U/L (46-116) Total Protein 5.7 G/DL (6.4-8.2) L Albumin 1.7 G/DL (3.4-5.0) L Globulin 4.0 g/dL Albumin/Globulin Ratio 0.4 (1.0-2.7) L Current Medications Medications (Trade) Dose Ordered Sig/Zuleima Route PRN Reason Start Time Stop Time Status Last Admin Dose Admin Acetaminophen (Tylenol) 650 mg Q8H PRN ORAL Mild Pain/Temp > 100.5 01/12/19 17:30 02/11/19 17:29 01/13/19 17:27 Azithromycin (Zithromax) 500 mg DAILY ORAL 01/15/19 14:00 01/22/19 13:59 01/21/19 09:18 Bisacodyl (Dulcolax) 10 mg BIDPRN PRN RECTAL Constipation 01/16/19 07:45 02/15/19 07:44 01/19/19 18:34 Dextrose (Dextrose 50%) 25 ml Q30M PRN IV Hypoglycemia 01/12/19 13:45 02/11/19 13:44 Dextrose (Dextrose 50%) 50 ml Q30M PRN IV Hypoglycemia 01/12/19 13:45 02/11/19 13:44 Dextrose/Sodium Chloride 1,000 ml @ 50 mls/hr Q20H IV 01/19/19 12:57 02/18/19 12:56 01/21/19 05:13 Docusate Sodium (Colace) 100 mg TWICE A DAY ORAL 01/15/19 18:00 02/14/19 17:59 01/21/19 09:17 Enoxaparin Sodium (Lovenox) 60 mg Q12HR@0600,1800 SUBQ 01/20/19 18:00 02/19/19 17:59 01/21/19 05:13 Fentanyl (Duragesic) 1 patch Q72H TDERMAL 01/19/19 12:00 01/26/19 11:59 01/19/19 12:08 Folic Acid (Folate) 5 mg DAILY ORAL 01/17/19 09:45 02/16/19 09:44 01/21/19 09:17 Gabapentin (Neurontin) 300 mg THREE TIMES A DAY ORAL 01/19/19 18:00 02/18/19 17:59 01/21/19 09:17 Hydromorphone HCl (Dilaudid) 4 mg Q4H PRN ORAL severe breakthrough pain 01/18/19 14:12 01/25/19 14:11 01/21/19 09:29 Lactulose (Cephulac) 10 gm THREE TIMES A DAY ORAL 01/16/19 13:00 02/15/19 12:59 01/21/19 09:17 Methylnaltrexone [place] (Relistor) 12 mg QOD SUBQ 01/20/19 09:15 02/19/19 09:14 01/20/19 09:49 Miscellaneous Medication (fentaNYL Destruction) 1 ea Q72H MISC 01/19/19 12:00 02/18/19 11:59 01/19/19 12:09 Naloxone HCl (Narcan) 0.1 mg Q5M PRN IV Sedation scale 3 or 4 01/16/19 12:00 02/15/19 11:59 Ondansetron HCl (Zofran) 4 mg Q6H PRN IVP Nausea & Vomiting 01/12/19 13:45 02/11/19 13:44 01/21/19 11:47 Pantoprazole (Protonix) 40 mg DAILY IVP 01/12/19 16:45 02/11/19 16:44 01/21/19 09:18 Piperacillin Sod/ Tazobactam Sod 3.375 gm/Sodium Chloride 110 ml @ 27.5 mls/hr Q8H IVPB 01/14/19 17:00 01/23/19 16:59 01/21/19 10:22 Polyethylene Glycol (Miralax) 17 gm BEDTIME ORAL 01/16/19 21:00 02/15/19 20:59 01/20/19 21:00 Potassium Chloride (K-Dur) 40 meq DAILY ORAL 01/21/19 09:45 02/20/19 09:44 01/21/19 10:22 Simethicone (Mylicon) 80 mg BIDPRN PRN ORAL gas 01/18/19 21:45 02/17/19 21:44 01/19/19 23:36 Vancomycin HCl (Vanco rx to dose) 1 ea DAILY PRN MISC Per rx protocol 01/14/19 20:30 02/13/19 20:29 Zolpidem Tartrate (Ambien) 5 mg HSPRN PRN ORAL Insomnia 01/20/19 06:15 01/27/19 06:14 01/20/19 20:51 Catalina Kirby MD Jan 21, 2019 13:07
--- NOTE | 2019-01-21 13:30 | NUR ---
NURSE NOTES: IV site leaking, no s/s of infiltration. Removed and reinserted to left hand, patient tolerated procedure well.
--- NOTE | 2019-01-21 13:39 | NUR ---
*-* INSURANCE *-* ALL AVAILABLE CLINICALS HAVE BEEN FAXED TO: REF#[id number] - FOR TRACKING PURPOSES THIS IS SHARED RISK NO CM ASSIGNED PH#[phone] FAX#[phone] [facility]#[id number] CM: TAMMY PH#[phone] EXT [phone] FAX#[phone] REVIEWS/CLINICALS
[2019-01-21] MEDS: Simethicone 80mg tab ORAL PRN (14:38)
--- NOTE | 2019-01-21 15:16 | NUR ---
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
--- NOTE | 2019-01-21 15:39 | Surgery Progress Note ---
Surgery Progress Note Subjective Additional Comments leukocytosis trending down CT noted. likely internal leakage from internal external drain as it was noted to be backing put few days ago hence placed on drainage bag exam stable passing flatus and BM tolerating diet Objective Last 24 Hour Vital Signs Date Time Temp Pulse Resp B/P (MAP) Pulse Ox O2 Delivery O2 Flow Rate FiO2 01/21/19 12:00 97.9 111 21 149/99 (116) 99 01/21/19 09:00 Nasal Cannula 2.0 01/21/19 08:00 98.2 81 20 138/79 (98) 96 01/21/19 04:00 97.3 78 19 126/70 (88) 95 01/21/19 00:00 97.3 86 19 128/89 (102) 92 01/20/19 21:00 Nasal Cannula 2.0 01/20/19 20:00 97.4 103 19 141/91 (108) 96 01/20/19 16:00 97.4 88 20 134/86 (102) 96 I&O Intake and Output 01/20/19 01/21/19 18:59 06:59 Intake Total 377.5 ml 1070.0 ml Output Total 500 ml 700 ml Balance -122.5 ml 370.0 ml Intake Oral 240 ml 360 ml IV Total 137.5 ml 710.0 ml Other 500 ml 700 ml # Voids 3 3 # Bowel Movements 3 1 Dressing: dry Wound: clean Cardiovascular: RSR Respiratory: clear Abdomen: soft, distended, non-tender, present bowel sounds Extremities: no edema, no tenderness, no cyanosis Laboratory Tests Test 01/21/19 05:55 White Blood Count 21.9 K/UL (4.8-10.8) H Red Blood Count 3.80 M/UL (4.20-5.40) L Hemoglobin 12.8 G/DL (12.0-16.0) Hematocrit 36.1 % (37.0-47.0) L Mean Corpuscular Volume 95 FL (80-99) Mean Corpuscular Hemoglobin 33.6 PG (27.0-31.0) H Mean Corpuscular Hemoglobin Concent 35.3 G/DL (32.0-36.0) Red Cell Distribution Width 13.0 % (11.6-14.8) Platelet Count 701 K/UL (150-450) H Mean Platelet Volume 5.9 FL (6.5-10.1) L Neutrophils (%) (Auto) % (45.0-75.0) Lymphocytes (%) (Auto) % (20.0-45.0) Monocytes (%) (Auto) % (1.0-10.0) Eosinophils (%) (Auto) % (0.0-3.0) Basophils (%) (Auto) % (0.0-2.0) Differential Total Cells Counted 100 Neutrophils % (Manual) 83 % (45-75) H Lymphocytes % (Manual) 6 % (20-45) L Monocytes % (Manual) 7 % (1-10) Eosinophils % (Manual) 1 % (0-3) Basophils % (Manual) 0 % (0-2) Band Neutrophils 3 % (0-8) Platelet Estimate Increased H Platelet Morphology Normal Sodium Level 138 MMOL/L (136-145) Potassium Level 3.4 MMOL/L (3.5-5.1) L Chloride Level 103 MMOL/L (98-107) Carbon Dioxide Level 26 MMOL/L (21-32) Anion Gap 9 mmol/L (5-15) Blood Urea Nitrogen 14 mg/dL (7-18) Creatinine 1.4 MG/DL (0.55-1.30) H Estimat Glomerular Filtration Rate 38.1 mL/min (>60) Glucose Level 76 MG/DL (74-106) Calcium Level 8.2 MG/DL (8.5-10.1) L Total Bilirubin 0.8 MG/DL (0.2-1.0) Aspartate Amino Transf (AST/SGOT) 15 U/L (15-37) Alanine Aminotransferase (ALT/SGPT) 16 U/L (12-78) Alkaline Phosphatase 113 U/L (46-116) Total Protein 5.7 G/DL (6.4-8.2) L Albumin 1.7 G/DL (3.4-5.0) L Globulin 4.0 g/dL Albumin/Globulin Ratio 0.4 (1.0-2.7) L Plan Problems: (1) Abdominal pain Assessment & Plan: 63-year-old female patient with history of recently diagnosed pancreatic cancer in November 2018 presented to the emergency room at [facility] with complaint of abdominal pain for approximately 1 hour. Patient is status post a biliary drain placement at [facility] approximately 1 week ago. She reported that she had a first treatment of chemotherapy this past Thursday. The patient denied any nausea vomiting, denies any constipation or diarrhea. She states her pain medication was unable to relieve her pain. no fever or chills. labs as below. C Tnoted. surgery called to assist with care and management. tube checked okay for diet leave tube in place with cap stable otherwise from surgical standpoint no acute surgical intervention planned iv fluids trend labs will monitor and follow with exam thank you (2) Biliary drain displacement Assessment & Plan: Daughter was able to inform me with a lot of history. Seems patient unresectable initially and attempted biliary drain placed endoscopically but unsuccessful. A external biliary drain was placed by radiology. Would patient was getting her Port-A-Cath placed a another radiologist felt he could place a internal/external biliary drain and he was able to successfully place a internal/external biliary drain. Had the trade Since. Fell off and she has been without it to drainage recently. In evaluating the trade she has some bilious output from the drain and on imaging drain looks to be appropriately placed. Labs reviewed stable. drain placed to gravity as leaking Drain putting out a ton since placed on 2 bag IMPRESSION: 1. Appropriately positioned percutaneous left biliary drain with mild intrahepatic biliary ductal dilatation. 2. Ill-defined pancreatic head/proximal body mass, likely corresponding to stated history of pancreatic neoplasm. Please note evaluation of size and vascular involvement of pancreatic masses is incomplete prior examinations and without multiphasic pancreatic protocol. 3. 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 SMV confluence is not visualized. 4. Color wall thickening with pericholecystic fluid; in the absence of distended gallbladder, these findings are critical for acute pancreatitis and clinical correlation is recommended. Transhepatic biliary drain noted. 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 Abnormal liver with area of peripheral hypoechogenicity along the posterior right lobe margin. Suggest further evaluation with contrast CT. Obscured pancreas and aorta due to bowel gas. . Interval development of moderate small bowel dilatation. Transition to relatively decompressed terminal ileum demonstrated indicating this is probably a mechanical bowel obstruction. Pneumatosis suspected within one of the proximal small bowel segments in the upper abdomen. No evidence of perforation. Development of multiloculated ascites with prominent collections contiguous with the caudal end of the right lobe of the liver capsule, Morison's pouch and inferior to the right kidney. Other generalized mild ascites noted as well. Internal/external transhepatic biliary drainage catheter in good position. No imaging evidence for catheter malfunction or biliary obstruction. CT noted. likely internal leakage from internal external drain as it was noted to be backing put few days ago hence placed on drainage bag (3) Pancreatic cancer Assessment & Plan: Pancreatic cancer, non-resectable, based on patient's info. Had a Abdominal pelvis CT reviewed 1. Appropriately positioned percutaneous left biliary drain with mild intrahepatic biliary ductal dilatation. 2. Ill- defined pancreatic head/proximal body mass, likely corresponding to stated history of pancreatic neoplasm. Please note evaluation of size and vascular involvement of pancreatic masses is incomplete prior examinations and without multiphasic pancreatic protocol. 3. 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 She has already started rx Jim Gates Jan 21, 2019 15:39
--- NOTE | 2019-01-21 17:09 | NUR ---
P.T Note: late entry 1345 P.T attempted however pt unable to participate due to patient too fatigue to participate. Pt stated she has been sitting for a while in the chair and did some walking earlier. Pt requested to be seen tomorrow.
--- NOTE | 2019-01-21 17:12 | NUR ---
P.T WEEKLY PROGRESS NOTES: PATIENT CONTINUES TO BE SEEN IN THERAPY FOR THERA EX'S, ADL/FUNCTIONAL MOBILITY TRAINING , BALANCE AND GAIT TRAINING. PATIENT CONTINUES TO BE LIMITED BY PAIN , FATIGUE AND WEAKNESS . PATIENT CURRENTLY MIN/CGA X 1 FOR BED MOBILITY, MIN/CGA X 1 FOR TRANSFERS AND GAIT FOR 8-10 FT USING THE FWW . WILL CONTINUE TO POC WITH PROGRESSION OF ACTIVITIES TOLERATED. RECOMMEND SNF FOR FURTHER REHAB INTERVENTION OR HOME WITH FAMILY/CG ASSIST AND HOME P.T AT [place].
--- NOTE | 2019-01-21 17:21 | NUR ---
NURSE NOTES: Patient noted with an episode of vomiting light brown emesis with a few white particles that look like food. PRN zofran to be given once due.
[2019-01-21 20:00] VITALS: BP 157/88
--- NOTE | 2019-01-21 20:20 | NUR ---
NURSE NOTES: Pt received from outgoing nurse CAITIE Lee. Pt is in bed, awake and verbal. No acute distress noted. No acute distress noted. No SOB. Pt will be repositioned and cleaned frequently. Bed locked low in position,side rails up and call light within reach. Bed alarm on. Pt instructed to call for assistance before getting out of bed. Pt will be monitored.
[2019-01-21] MEDS: Miralax 17gm pkt ORAL SCH (21:00)
[2019-01-21] MEDS: Zolpidem 5mg tab ORAL PRN (21:29)
[2019-01-22] VITALS: BP 159/89
--- NOTE | 2019-01-22 03:00 | NUR ---
NURSE NOTES: Pt has periodic vomiting, Zofran given as ordered PRN. D5NS running at 50ml/hr. Biliary drain output 400ml. Pt had 4 small BMs. Pin medication given as ordered PRN.
[2019-01-22 04:00] VITALS: BP 149/90
[2019-01-22] MEDS: HYDROmorphone 4mg tab ORAL PRN ×3 (06:22→17:31)
[2019-01-22] MEDS: Enoxaparin 60mg Inj SUBQ SCH ×2 (06:31→17:42)
--- NOTE | 2019-01-22 07:10 | NUR ---
HAND-OFF: Report given to Elpidio Jain RN.
[2019-01-22 07:58] LABS: HEMATOCRIT 35.4 % (37.0-47.0); MEAN CORPUSCULAR VOLUME 94 FL (80-99); PLATELET COUNT 817 K/UL (150-450); RED BLOOD COUNT 3.77 M/UL (4.20-5.40); RED CELL DISTRIBUTION WIDTH 13.7 % (11.6-14.8)
[2019-01-22 08:00] VITALS: BP 129/90
[2019-01-22 08:03] LABS: ANION GAP 13 mmol/L (5-15); BLOOD UREA NITROGEN 15 mg/dL (7-18); CALCIUM 7.9 MG/DL (8.5-10.1); CARBON DIOXIDE 22 MMOL/L (21-32); CHLORIDE 103 MMOL/L (98-107); CREATININE 1.3 MG/DL (0.55-1.30); POTASSIUM 2.9 MMOL/L (3.5-5.1); SODIUM 138 MMOL/L (136-145)
--- NOTE | 2019-01-22 09:42 | General Progress Note ---
Assessment/Plan Problem List: (1) SOB (shortness of breath) ICD Codes: R06.02 - Shortness of breath SNOMED: 364854591 (2) Nausea & vomiting ICD Codes: R11.2 - Nausea with vomiting, unspecified SNOMED: 24655154 (3) Malnutrition ICD Codes: E46 - Unspecified protein-calorie malnutrition SNOMED: 18631886 (4) UTI (urinary tract infection) ICD Codes: N39.0 - Urinary tract infection, site not specified SNOMED: 39174756 (5) Abdominal pain ICD Codes: R10.9 - Unspecified abdominal pain SNOMED: 78140650 (6) Biliary drain displacement ICD Codes: T85.520A - Displacement of bile duct prosthesis, initial encounter SNOMED: 752207461 (7) Pancreatic cancer ICD Codes: C25.9 - Malignant neoplasm of pancreas, unspecified SNOMED: 245983182 Status: unchanged Assessment/Plan: pt diet pain control abx cbc bmp am dc plan snf Subjective Constitutional: Reports: weakness Allergies: Coded Allergies: No Known Allergies (Unverified , 01/12/19) All Systems: reviewed and negative except above Subjective o2nc sl nausea abd pain Objective Last 24 Hour Vital Signs Date Time Temp Pulse Resp B/P (MAP) Pulse Ox O2 Delivery O2 Flow Rate FiO2 01/22/19 04:00 97.7 90 20 149/90 (109) 98 01/22/19 00:00 97.9 92 22 159/89 (112) 98 01/21/19 21:00 Nasal Cannula 2.0 01/21/19 20:00 98.1 109 20 157/88 (111) 94 01/21/19 12:00 97.9 111 21 149/99 (116) 99 Intake and Output 01/21/19 01/22/19 19:00 07:00 Intake Total 710.0 ml 832.5 ml Output Total 600 ml 600 ml Balance 110.0 ml 232.5 ml Intake Oral 240 ml IV Total 710.0 ml 592.5 ml Emesis 100 ml 200 ml Other 500 ml 400 ml # Voids 3 # Bowel Movements 3 3 Laboratory Tests 01/22/19 06:12: White Blood Count 19.0H, Red Blood Count 3.77L, Hemoglobin 12.0, Hematocrit 35.4L, Mean Corpuscular Volume 94, Mean Corpuscular Hemoglobin 31.8H, Mean Corpuscular Hemoglobin Concent 33.8, Red Cell Distribution Width 13.7, Platelet Count 817H, Mean Platelet Volume 5.8L, Neutrophils (%) (Auto) , Lymphocytes (%) (Auto) , Monocytes (%) (Auto) , Eosinophils (%) (Auto) , Basophils (%) (Auto) , Differential Total Cells Counted 100, Neutrophils % (Manual) 80H, Lymphocytes % (Manual) 10L, Monocytes % (Manual) 7, Eosinophils % (Manual) 0, Basophils % ( Manual) 0, Band Neutrophils 3, Platelet Estimate IncreasedH, Platelet Morphology Normal, Red Blood Cell Morphology Normal, Sodium Level 138, Potassium Level 2.9L, Chloride Level 103, Carbon Dioxide Level 22, Anion Gap 13 , Blood Urea Nitrogen 15, Creatinine 1.3, Estimat Glomerular Filtration Rate 41.5, Glucose Level 105, Calcium Level 7.9L, Random Vancomycin Level 13.8 Height (Feet): 5 Height (Inches): 3.00 Weight (Pounds): 130 General Appearance: lethargic EENT: normal ENT inspection Neck: normal alignment Cardiovascular: normal peripheral pulses, normal rate, regular rhythm Respiratory/Chest: chest wall non-tender, lungs clear, normal breath sounds Abdomen: normal bowel sounds, non tender, soft Extremities: normal inspection Edema: no edema noted Arm (L), no edema noted Arm (R), no edema noted Leg (L), no edema noted Leg (R), no edema noted Pedal (L), no edema noted Pedal (R), no edema noted Generalized Neurologic: motor weakness Skin: normal pigmentation, warm/dry Elvis Luke DO Jan 22, 2019 09:42
[2019-01-22] MEDS: Pantoprazole Inj IVP SCH (09:46)
[2019-01-22] MEDS: Relistor 12mg/0.6ml Vial SUBQ SCH (09:46)
[2019-01-22] MEDS: Piperacillin/Tazobactam 3.375 GM in NS 110 ML IVPB SCH ×2 (09:46→17:30)
[2019-01-22] MEDS: Azithromycin 250mg tab ORAL SCH (09:47)
[2019-01-22] MEDS: Lactulose 10gm/15ml UDC ORAL SCH ×3 (09:59→18:00)
[2019-01-22] MEDS: Docusate 100mg cap ORAL SCH (10:00)
[2019-01-22] MEDS ORDERED: Docusate 100mg cap ORAL PRN (10:15)
--- NOTE | 2019-01-22 10:22 | Nephrology Progress Note ---
Assessment/Plan Problem List: (1) Electrolyte abnormality (2) Pancreatic cancer (3) Biliary drain displacement (4) Abdominal pain (5) Malnutrition Assessment HypoKalemia HypoNatremia Abdominal pain. Nausea. Vomiting. UTI. Pancreatic cancer. Biliary drain displacement Malnutrition. Anemia Plan K supplement as needed, check labs change IV to isotonic solution monitor lytes start PO Folic acid Subjective ROS Limited/Unobtainable: No Constitutional: Reports: malaise Objective Objective Last 24 Hour Vital Signs Date Time Temp Pulse Resp B/P (MAP) Pulse Ox O2 Delivery O2 Flow Rate FiO2 01/22/19 04:00 97.7 90 20 149/90 (109) 98 01/22/19 00:00 97.9 92 22 159/89 (112) 98 01/21/19 21:00 Nasal Cannula 2.0 01/21/19 20:00 98.1 109 20 157/88 (111) 94 01/21/19 12:00 97.9 111 21 149/99 (116) 99 Intake and Output 01/21/19 01/22/19 19:00 07:00 Intake Total 710.0 ml 832.5 ml Output Total 600 ml 600 ml Balance 110.0 ml 232.5 ml Intake Oral 240 ml IV Total 710.0 ml 592.5 ml Emesis 100 ml 200 ml Other 500 ml 400 ml # Voids 3 # Bowel Movements 3 3 Laboratory Tests 01/22/19 06:12: White Blood Count 19.0H, Red Blood Count 3.77L, Hemoglobin 12.0, Hematocrit 35.4L, Mean Corpuscular Volume 94, Mean Corpuscular Hemoglobin 31.8H, Mean Corpuscular Hemoglobin Concent 33.8, Red Cell Distribution Width 13.7, Platelet Count 817H, Mean Platelet Volume 5.8L, Neutrophils (%) (Auto) , Lymphocytes (%) (Auto) , Monocytes (%) (Auto) , Eosinophils (%) (Auto) , Basophils (%) (Auto) , Differential Total Cells Counted 100, Neutrophils % (Manual) 80H, Lymphocytes % (Manual) 10L, Monocytes % (Manual) 7, Eosinophils % (Manual) 0, Basophils % ( Manual) 0, Band Neutrophils 3, Platelet Estimate IncreasedH, Platelet Morphology Normal, Red Blood Cell Morphology Normal, Sodium Level 138, Potassium Level 2.9L, Chloride Level 103, Carbon Dioxide Level 22, Anion Gap 13 , Blood Urea Nitrogen 15, Creatinine 1.3, Estimat Glomerular Filtration Rate 41.5, Glucose Level 105, Calcium Level 7.9L, Random Vancomycin Level 13.8 Height (Feet): 5 Height (Inches): 3.00 Weight (Pounds): 130 General Appearance: no apparent distress, lethargic Cardiovascular: normal rate Abdomen: distended Objective no change Kapil Turcios MD Jan 22, 2019 10:22
[2019-01-22] MEDS ORDERED: Miralax 17gm pkt ORAL PRN (10:30)
--- NOTE | 2019-01-22 10:39 | Infectious Diseases Prog Note ---
Assessment/Plan Assessment/Plan Assessment/Plan Fever 01/13, SP Leukocytosis, improving after large bowel movement 01/14 bcx ng tumor related? Ileus related? biloma related? atelectasis? PNA, CAP? -CXR: Patchy consolidation in the right lower lung, concerning for pneumonia. Mild pulmonary vascular congestion. -flu swab negative urine legionella antigen negative Abdominal pain Pancreatitis? lipase negative 01/12 CT abd/p: Appropriately positioned percutaneous left biliary drain with mild intrahepatic biliary ductal dilatation. Ill-defined pancreatic head/ proximal body mass, likely corresponding to stated history of pancreatic neoplasm. Please note evaluation of size and vascular involvement of pancreatic masses is incomplete prior examinations and without multiphasic pancreatic protocol. 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 SMV confluence is not visualized. Gallbladder wall thickening with pericholecystic fluid; in the absence of distended gallbladder, these findings are critical for acute pancreatitis and clinical correlation is recommended. 01/19 US Abd: Transhepatic biliary drain noted. 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 Abnormal liver with area of peripheral hypoechogenicity along the posterior right lobe margin. Suggest further evaluation with contrast CT. Obscured pancreas and aorta due to bowel gas. Trace ascites 01/20 CT A/P: Interval development of moderate small bowel dilatation. Transition to relatively decompressed terminal ileum demonstrated indicating this is probably a mechanical bowel obstruction. Pneumatosis suspected within one of the proximal small bowel segments in the upper abdomen. No evidence of perforation. Development of multiloculated ascites with prominent collections contiguous with the caudal end of the right lobe of the liver capsule, Morison's pouch and inferior to the right kidney. Other generalized mild ascites noted as well. Internal/external transhepatic biliary drainage catheter in good position. No imaging evidence for catheter malfunction or biliary obstruction. Right basilar consolidation versus atelectasis. Correlate for pneumonia. Trace bilateral pleural effusions. Anasarca recently diagnosed pancreatic CA 11/2018 - s/p biliary drain 1 week [employer] at [facility] -sp 1st chemotherapy treatment 01/10/19 tobacco abuse Plan: -cont empiric Zosyn and IV Vancomycin #8. plan for 10-14 day therapy. -cont Azithromycin #7/7 for mycoplasma coverage 01/17 DC Tamiflu #2 indium scan planned for Thursday, if WBC continues to improve, may not need -f/u cx -Monitor CBC/CMP, temperatures -f/u Bcx x2 -aspiration precautions Thank you for this consultation. Will continue to follow along with you. Subjective Allergies: Coded Allergies: No Known Allergies (Unverified , 01/12/19) Subjective Afebrile Leukocytosis improving still On NC 2L Objective Vital Signs Last 24 Hour Vital Signs Date Time Temp Pulse Resp B/P (MAP) Pulse Ox O2 Delivery O2 Flow Rate FiO2 01/22/19 04:00 97.7 90 20 149/90 (109) 98 01/22/19 00:00 97.9 92 22 159/89 (112) 98 01/21/19 21:00 Nasal Cannula 2.0 01/21/19 20:00 98.1 109 20 157/88 (111) 94 01/21/19 12:00 97.9 111 21 149/99 (116) 99 Height (Feet): 5 Height (Inches): 3.00 Weight (Pounds): 130 Objective Gen: NAD CV: RRR, S1, S2 Resp:Coarse B/L Abd: hypoactive BS+. Diffusely TTP but worse RUQ. Ext: no edema Neuro: alert. Microbiology Date/Time Source Procedure Growth Status 01/20/19 16:15 Blood Blood Culture - Preliminary NO GROWTH AFTER 24 HOURS Resulted 01/20/19 16:00 Blood Blood Culture - Preliminary NO GROWTH AFTER 24 HOURS Resulted 01/21/19 06:00 Sputum Expectorated Gram Stain Pending Resulted 01/21/19 06:00 Sputum Culture - Preliminary Gram Negative Bacillus 1 Resulted Laboratory Tests Test 01/22/19 06:12 White Blood Count 19.0 K/UL (4.8-10.8) H Red Blood Count 3.77 M/UL (4.20-5.40) L Hemoglobin 12.0 G/DL (12.0-16.0) Hematocrit 35.4 % (37.0-47.0) L Mean Corpuscular Volume 94 FL (80-99) Mean Corpuscular Hemoglobin 31.8 PG (27.0-31.0) H Mean Corpuscular Hemoglobin Concent 33.8 G/DL (32.0-36.0) Red Cell Distribution Width 13.7 % (11.6-14.8) Platelet Count 817 K/UL (150-450) H Mean Platelet Volume 5.8 FL (6.5-10.1) L Neutrophils (%) (Auto) % (45.0-75.0) Lymphocytes (%) (Auto) % (20.0-45.0) Monocytes (%) (Auto) % (1.0-10.0) Eosinophils (%) (Auto) % (0.0-3.0) Basophils (%) (Auto) % (0.0-2.0) Differential Total Cells Counted 100 Neutrophils % (Manual) 80 % (45-75) H Lymphocytes % (Manual) 10 % (20-45) L Monocytes % (Manual) 7 % (1-10) Eosinophils % (Manual) 0 % (0-3) Basophils % (Manual) 0 % (0-2) Band Neutrophils 3 % (0-8) Platelet Estimate Increased H Platelet Morphology Normal Red Blood Cell Morphology Normal Sodium Level 138 MMOL/L (136-145) Potassium Level 2.9 MMOL/L (3.5-5.1) L Chloride Level 103 MMOL/L (98-107) Carbon Dioxide Level 22 MMOL/L (21-32) Anion Gap 13 mmol/L (5-15) Blood Urea Nitrogen 15 mg/dL (7-18) Creatinine 1.3 MG/DL (0.55-1.30) Estimat Glomerular Filtration Rate 41.5 mL/min (>60) Glucose Level 105 MG/DL (74-106) Calcium Level 7.9 MG/DL (8.5-10.1) L Random Vancomycin Level 13.8 ug/mL Current Medications Medications (Trade) Dose Ordered Sig/Zuleima Route PRN Reason Start Time Stop Time Status Last Admin Dose Admin Acetaminophen (Tylenol) 650 mg Q8H PRN ORAL Mild Pain/Temp > 100.5 01/12/19 17:30 02/11/19 17:29 01/13/19 17:27 Azithromycin (Zithromax) 500 mg DAILY ORAL 01/15/19 14:00 01/22/19 13:59 01/22/19 09:47 Bisacodyl (Dulcolax) 10 mg BIDPRN PRN RECTAL Constipation 01/16/19 07:45 02/15/19 07:44 01/19/19 18:34 Dextrose (Dextrose 50%) 25 ml Q30M PRN IV Hypoglycemia 01/12/19 13:45 02/11/19 13:44 Dextrose (Dextrose 50%) 50 ml Q30M PRN IV Hypoglycemia 01/12/19 13:45 02/11/19 13:44 Dextrose/Sodium Chloride 1,000 ml @ 50 mls/hr Q20H IV 01/19/19 12:57 02/18/19 12:56 01/21/19 23:52 Docusate Sodium (Colace) 100 mg TWICE A DAY PRN ORAL constipation 01/22/19 10:15 02/14/19 17:59 Enoxaparin Sodium (Lovenox) 60 mg Q12HR@0600,1800 SUBQ 01/20/19 18:00 02/19/19 17:59 01/22/19 06:31 Fentanyl (Duragesic) 1 patch Q72H TDERMAL 01/19/19 12:00 01/26/19 11:59 01/19/19 12:08 Folic Acid (Folate) 5 mg DAILY ORAL 01/17/19 09:45 02/16/19 09:44 01/22/19 09:46 Gabapentin (Neurontin) 300 mg THREE TIMES A DAY ORAL 01/19/19 18:00 02/18/19 17:59 01/22/19 09:46 Hydromorphone HCl (Dilaudid) 4 mg Q4H PRN ORAL severe breakthrough pain 01/18/19 14:12 01/25/19 14:11 01/22/19 06:22 Lactulose (Cephulac) 10 gm THREE TIMES A DAY ORAL 01/16/19 13:00 02/15/19 12:59 01/21/19 17:52 Methylnaltrexone [place] (Relistor) 12 mg QOD SUBQ 01/20/19 09:15 02/19/19 09:14 01/22/19 09:46 Miscellaneous Medication (fentaNYL Destruction) 1 ea Q72H MISC 01/19/19 12:00 02/18/19 11:59 01/19/19 12:09 Naloxone HCl (Narcan) 0.1 mg Q5M PRN IV Sedation scale 3 or 4 01/16/19 12:00 02/15/19 11:59 Ondansetron HCl (Zofran) 4 mg Q6H PRN IVP Nausea & Vomiting 01/12/19 13:45 02/11/19 13:44 01/22/19 06:22 Pantoprazole (Protonix) 40 mg DAILY IVP 01/12/19 16:45 02/11/19 16:44 01/22/19 09:46 Piperacillin Sod/ Tazobactam Sod 3.375 gm/Sodium Chloride 110 ml @ 27.5 mls/hr Q8H IVPB 01/14/19 17:00 01/25/19 16:59 01/22/19 09:46 Polyethylene Glycol (Miralax) 17 gm BEDTIME PRN ORAL constipation 01/22/19 10:30 02/15/19 20:59 Potassium Chloride 100 ml @ 100 mls/hr Q1HR IVPB 01/22/19 11:00 01/22/19 14:59 Potassium Chloride (K-Dur) 40 meq TID ORAL 01/22/19 09:00 02/20/19 09:44 01/22/19 09:47 Simethicone (Mylicon) 80 mg BIDPRN PRN ORAL gas 01/18/19 21:45 02/17/19 21:44 01/21/19 14:38 Vancomycin HCl (Vanco rx to dose) 1 ea DAILY PRN MISC Per rx protocol 01/14/19 20:30 02/13/19 20:29 Vancomycin HCl 750 mg/Sodium Chloride 275 ml @ 183.333 mls/hr Q24H IVPB 01/22/19 11:00 01/27/19 10:59 Zolpidem Tartrate (Ambien) 5 mg HSPRN PRN ORAL Insomnia 01/20/19 06:15 01/27/19 06:14 01/21/19 21:29 Anselmo Sommer MD Jan 22, 2019 10:39
--- NOTE | 2019-01-22 11:25 | Surgery Progress Note ---
Surgery Progress Note Subjective Additional Comments leukocytosis trending down labs stable d/c planning to SNF with abx and drain care having bm and states abd feels better Objective Last 24 Hour Vital Signs Date Time Temp Pulse Resp B/P (MAP) Pulse Ox O2 Delivery O2 Flow Rate FiO2 01/22/19 09:00 Nasal Cannula 2.0 01/22/19 08:00 97.4 98 18 129/90 (103) 99 01/22/19 04:00 97.7 90 20 149/90 (109) 98 01/22/19 00:00 97.9 92 22 159/89 (112) 98 01/21/19 21:00 Nasal Cannula 2.0 01/21/19 20:00 98.1 109 20 157/88 (111) 94 01/21/19 12:00 97.9 111 21 149/99 (116) 99 I&O Intake and Output 01/21/19 01/22/19 19:00 07:00 Intake Total 710.0 ml 882.5 ml Output Total 600 ml 600 ml Balance 110.0 ml 282.5 ml Intake Oral 240 ml IV Total 710.0 ml 642.5 ml Emesis 100 ml 200 ml Other 500 ml 400 ml # Voids 3 # Bowel Movements 3 3 Dressing: dry Wound: clean Drains: other Cardiovascular: RSR Respiratory: clear Abdomen: soft, non-tender, present bowel sounds, other Extremities: no edema, no tenderness, no cyanosis Laboratory Tests Test 01/22/19 06:12 White Blood Count 19.0 K/UL (4.8-10.8) H Red Blood Count 3.77 M/UL (4.20-5.40) L Hemoglobin 12.0 G/DL (12.0-16.0) Hematocrit 35.4 % (37.0-47.0) L Mean Corpuscular Volume 94 FL (80-99) Mean Corpuscular Hemoglobin 31.8 PG (27.0-31.0) H Mean Corpuscular Hemoglobin Concent 33.8 G/DL (32.0-36.0) Red Cell Distribution Width 13.7 % (11.6-14.8) Platelet Count 817 K/UL (150-450) H Mean Platelet Volume 5.8 FL (6.5-10.1) L Neutrophils (%) (Auto) % (45.0-75.0) Lymphocytes (%) (Auto) % (20.0-45.0) Monocytes (%) (Auto) % (1.0-10.0) Eosinophils (%) (Auto) % (0.0-3.0) Basophils (%) (Auto) % (0.0-2.0) Differential Total Cells Counted 100 Neutrophils % (Manual) 80 % (45-75) H Lymphocytes % (Manual) 10 % (20-45) L Monocytes % (Manual) 7 % (1-10) Eosinophils % (Manual) 0 % (0-3) Basophils % (Manual) 0 % (0-2) Band Neutrophils 3 % (0-8) Platelet Estimate Increased H Platelet Morphology Normal Red Blood Cell Morphology Normal Sodium Level 138 MMOL/L (136-145) Potassium Level 2.9 MMOL/L (3.5-5.1) L Chloride Level 103 MMOL/L (98-107) Carbon Dioxide Level 22 MMOL/L (21-32) Anion Gap 13 mmol/L (5-15) Blood Urea Nitrogen 15 mg/dL (7-18) Creatinine 1.3 MG/DL (0.55-1.30) Estimat Glomerular Filtration Rate 41.5 mL/min (>60) Glucose Level 105 MG/DL (74-106) Calcium Level 7.9 MG/DL (8.5-10.1) L Random Vancomycin Level 13.8 ug/mL Plan Problems: (1) Abdominal pain Assessment & Plan: 63-year-old female patient with history of recently diagnosed pancreatic cancer in November 2018 [place] [facility] [place] complaint of abdominal pain for approximately 1 hour. Patient is status post a biliary drain placement at [facility] approximately 1 week ago. She reported that she had a first treatment of chemotherapy this past Thursday. The patient denied any nausea vomiting, denies any constipation or diarrhea. She states her pain medication was unable to relieve her pain. no fever or chills. labs as below. C Tnoted. surgery called to assist with care and management. tube checked okay for diet tube to drain IV abx d/c planning for SNF f/u with pcp / onc outpatient stable otherwise from surgical standpoint no acute surgical intervention planned iv fluids trend labs will monitor and follow with exam thank you (2) Biliary drain displacement Assessment & Plan: Daughter was able to inform me with a lot of history. Seems patient unresectable initially and attempted biliary drain placed endoscopically but unsuccessful. A external biliary drain was placed by radiology. Would patient was getting her Port-A-Cath placed a another radiologist felt he could place a internal/external biliary drain and he was able to successfully place a internal/external biliary drain. Had the trade Since. Fell off and she has been without it to drainage recently. In evaluating the trade she has some bilious output from the drain and on imaging drain looks to be appropriately placed. Labs reviewed stable. drain placed to gravity as leaking Drain putting out a ton since placed on 2 bag IMPRESSION: 1. Appropriately positioned percutaneous left biliary drain with mild intrahepatic biliary ductal dilatation. 2. Ill-defined pancreatic head/proximal body mass, likely corresponding to stated history of pancreatic neoplasm. Please note evaluation of size and vascular involvement of pancreatic masses is incomplete prior examinations and without multiphasic pancreatic protocol. 3. 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 SMV confluence is not visualized. 4. Color wall thickening with pericholecystic fluid; in the absence of distended gallbladder, these findings are critical for acute pancreatitis and clinical correlation is recommended. Transhepatic biliary drain noted. 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 Abnormal liver with area of peripheral hypoechogenicity along the posterior right lobe margin. Suggest further evaluation with contrast CT. Obscured pancreas and aorta due to bowel gas. . Interval development of moderate small bowel dilatation. Transition to relatively decompressed terminal ileum demonstrated indicating this is probably a mechanical bowel obstruction. Pneumatosis suspected within one of the proximal small bowel segments in the upper abdomen. No evidence of perforation. Development of multiloculated ascites with prominent collections contiguous with the caudal end of the right lobe of the liver capsule, Morison's pouch and inferior to the right kidney. Other generalized mild ascites noted as well. Internal/external transhepatic biliary drainage catheter in good position. No imaging evidence for catheter malfunction or biliary obstruction. CT noted. likely internal leakage from internal external drain as it was noted to be backing put few days ago hence placed on drainage bag (3) Pancreatic cancer Assessment & Plan: Pancreatic cancer, non-resectable, based on patient's info. Had a Abdominal pelvis CT reviewed 1. Appropriately positioned percutaneous left biliary drain with mild intrahepatic biliary ductal dilatation. 2. Ill- defined pancreatic head/proximal body mass, likely corresponding to stated history of pancreatic neoplasm. Please note evaluation of size and vascular involvement of pancreatic masses is incomplete prior examinations and without multiphasic pancreatic protocol. 3. 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 She has already started rx Jim Gates Jan 22, 2019 11:25
[2019-01-22] MEDS: Vancomycin 750mg/NS 275ml IVPB SCH ×2 (11:43)
[2019-01-22 11:58] VITALS: BP 135/92
--- NOTE | 2019-01-22 12:12 | NUR ---
PT NOTE: Pt refused PT treatment session today. States performing her exercises and being able to walk on her own around the room and using the restroom. Pt educated on the importance of performing therapeutic exercises for ease of performing functional ADLs. Pt continued to refuse. Will attempt PT treatment session at a later time. Left nurse call light within reach.
[2019-01-22] MEDS: fentaNYL Destruction MISC SCH (12:39)
--- NOTE | 2019-01-22 12:41 | NUR ---
INSTRUCTOR PAINTING: REVIEW SI: ABDOMINAL PAIN . LEUKOCYTOSIS T 97.4 HR 98 RR 18 BP 159/89 SAT 98% NC/2L WBC 19.[address] 817 IS: IVF D5NS @ 50ML/HR VANCO IV Q24HR KCl 10MEQ @ 100ML ZOSYN IV Q8HR AZITHROMYCIN PO QD MED/SURG STATUS DCP: PATIENT IS FROM HOME
--- NOTE | 2019-01-22 12:54 | NUR ---
NURSE NOTES: PT AXOX4, CALM, RESTING IN BED. PT WITH MULTIPLE LIQUID STOOLS. RN HELD SCHEDULED COLACE AND LACTULOSE. PT MADE AWARE AND AGREED TO HOLD STOOL SOFTENERS AND LAXATIVES. DR ALBARADO WITH ORDER FOR KCL 40MEQ IV X1 AND PER MD, HE CHANGED KCL 40MEQ PO TO TID. PT EDUCATED ON CHANGES AND VERBALIZED UNDERSTANDING. WILL CONTINUE TO MONITOR.
--- NOTE | 2019-01-22 13:57 | NUR ---
NURSE NOTES: DR VELAZQUEZ AT BEDSIDE AND MADE AWARE OF EPISODE OF DESATURATION TODAY, WITH INCREASE IN RR AND PULSE. PER DR VELAZQUEZ, PT NEEDS TO BE TRANSFERRED TO TELEMETRY FOR CARDIAC MONITORING AND GAVE RN ORDER. ESTRADA WORKMAN AND KARLO SMITH MADE AWARE. Addendum: 01/22/19 at 1835 by BRENDA MENESES RN RN WRONG PT.
[2019-01-22 16:00] VITALS: BP 119/78
--- NOTE | 2019-01-22 19:17 | NUR ---
HAND-OFF: Report given to Jimmie HOUSE RN.
--- NOTE | 2019-01-22 19:50 | NUR ---
NURSE NOTES: Received patient awake in bed, assisted off bedpan, helped turn to right lateral. Patient eating snack, appetite low. IV access intact, running IVF maintenance, dressing dry and intact. Biliary drain intact and patent, draining dark green fluid at a slow steady rate.
[2019-01-22 20:00] VITALS: BP 111/74
[2019-01-22] MEDS: D5NS 1,000 ML IV SCH (20:57)
[2019-01-22] MEDS: Zolpidem 5mg tab ORAL PRN ×2 (21:47→21:48)
[2019-01-23] VITALS: BP 126/82
[2019-01-23] MEDS: Piperacillin/Tazobactam 3.375 GM in NS 110 ML IVPB SCH ×2 (01:24→09:18)
[2019-01-23 04:09] VITALS: BP 139/80
[2019-01-23] MEDS: Enoxaparin 60mg Inj SUBQ SCH ×2 (05:11→17:37)
--- NOTE | 2019-01-23 06:59 | NUR ---
HAND-OFF: Report given to CAITIE Magallanes.
--- NOTE | 2019-01-23 07:48 | General Progress Note ---
Assessment/Plan Problem List: (1) SOB (shortness of breath) ICD Codes: R06.02 - Shortness of breath SNOMED: 610060517 (2) Nausea & vomiting ICD Codes: R11.2 - Nausea with vomiting, unspecified SNOMED: 68887069 (3) Malnutrition ICD Codes: E46 - Unspecified protein-calorie malnutrition SNOMED: 24015323 (4) UTI (urinary tract infection) ICD Codes: N39.0 - Urinary tract infection, site not specified SNOMED: 86608313 (5) Abdominal pain ICD Codes: R10.9 - Unspecified abdominal pain SNOMED: 97970143 (6) Biliary drain displacement ICD Codes: T85.520A - Displacement of bile duct prosthesis, initial encounter SNOMED: 376242485 (7) Pancreatic cancer ICD Codes: C25.9 - Malignant neoplasm of pancreas, unspecified SNOMED: 443758550 Status: unchanged Assessment/Plan: pt diet pain control abx cbc bmp am dc plan snf Subjective Constitutional: Reports: weakness Allergies: Coded Allergies: No Known Allergies (Unverified , 01/12/19) All Systems: reviewed and negative except above Subjective o2nc sl nausea abd pain Objective Last 24 Hour Vital Signs Date Time Temp Pulse Resp B/P (MAP) Pulse Ox O2 Delivery O2 Flow Rate FiO2 01/23/19 04:09 97.2 90 18 139/80 (99) 97 01/23/19 00:00 98.6 94 18 126/82 (97) 97 01/22/19 23:47 Nasal Cannula 2.0 01/22/19 20:00 98.2 94 18 111/74 (86) 97 01/22/19 16:00 97.0 94 18 119/78 (92) 97 01/22/19 11:58 96.9 17 135/92 (106) 100 01/22/19 09:00 Nasal Cannula 2.0 01/22/19 08:00 97.4 98 18 129/90 (103) 99 Intake and Output 01/22/19 01/23/19 19:00 07:00 Intake Total 1292.500 ml 1010 ml Output Total 500 ml 1550 ml Balance 792.500 ml -540 ml Intake Oral 480 ml 360 ml IV Total 812.500 ml 150 ml Other 500 ml Emesis 200 ml Drainage Total 450 ml Other 500 ml 900 ml # Voids 3 2 # Bowel Movements 13 8 Height (Feet): 5 Height (Inches): 3.00 Weight (Pounds): 130 General Appearance: lethargic EENT: normal ENT inspection Neck: normal alignment Cardiovascular: normal peripheral pulses, normal rate, regular rhythm Respiratory/Chest: chest wall non-tender, lungs clear, normal breath sounds Abdomen: normal bowel sounds, non tender, soft Extremities: normal inspection Edema: no edema noted Arm (L), no edema noted Arm (R), no edema noted Leg (L), no edema noted Leg (R), no edema noted Pedal (L), no edema noted Pedal (R), no edema noted Generalized Neurologic: motor weakness Skin: normal pigmentation, warm/dry Elvis Luke DO Jan 23, 2019 07:48
[2019-01-23 08:00] VITALS: BP 135/94
[2019-01-23 08:29] LABS: HEMATOCRIT 36.2 % (37.0-47.0); HEMOGLOBIN 12.4 G/DL (12.0-16.0); MEAN CORPUSCULAR VOLUME 92 FL (80-99); PLATELET COUNT 945 K/UL (150-450); RED BLOOD COUNT 3.92 M/UL (4.20-5.40); RED CELL DISTRIBUTION WIDTH 12.6 % (11.6-14.8); WHITE BLOOD COUNT 18.8 K/UL (4.8-10.8)
[2019-01-23] MEDS ORDERED: NS 275ml ONE (08:29)
[2019-01-23] MEDS ORDERED: D5NS 1000ml IV ONE (08:29)
[2019-01-23] MEDS: Lactulose 10gm/15ml UDC ORAL SCH ×3 (09:00→17:31)
[2019-01-23 09:01] LABS: ALANINE AMINOTRANSFERASE 16 U/L (12-78); ALBUMIN/GLOBULIN RATIO 0.5 (1.0-2.7); ALKALINE PHOSPHATASE 127 U/L (46-116); ANION GAP 10 mmol/L (5-15); ASPARTATE AMINO TRANSFERASE 15 U/L (15-37); BILIRUBIN,TOTAL 1.1 MG/DL (0.2-1.0); BLOOD UREA NITROGEN 17 mg/dL (7-18); CALCIUM 8.2 MG/DL (8.5-10.1); CARBON DIOXIDE 23 MMOL/L (21-32); CHLORIDE 102 MMOL/L (98-107); CREATININE 1.4 MG/DL (0.55-1.30); GAMMA GLUTAMYL TRANSPEPTIDASE 144 U/L (5-85); PHOSPHORUS 2.7 MG/DL (2.5-4.9); POTASSIUM 4.3 MMOL/L (3.5-5.1); SODIUM 135 MMOL/L (136-145)
[2019-01-23 09:02] LABS: BILIRUBIN,DIRECT 0.7 MG/DL (0.0-0.3)
[2019-01-23] MEDS: Pantoprazole Inj IVP SCH (09:20)
[2019-01-23] MEDS: Vancomycin 750mg/NS 275ml IVPB SCH ×2 (11:20)
[2019-01-23 11:50] VITALS: BP 128/85
--- NOTE | 2019-01-23 12:07 | General Progress Note ---
Assessment/Plan Assessment/Plan: (1) Intractable abdominal pain (2) Pancreatic cancer We will continue the Neurontin, Dilaudid and Fentanyl patch D/w Dr. Gonzales and he concurred. Subjective Date patient seen: Jan 23, 2019 Time patient seen: 11:30 - am Allergies: Coded Allergies: No Known Allergies (Unverified , 01/12/19) Subjective REVIEW OF SYSTEMS: Denies rash, fever, chills, sweating, dizziness, drowsiness, blurred vision, sore throat, change in weight. No shortness of breath or chest pain. No bowel or bladder incontinence. She is complaining of abdominal pain. SUBJECTIVE: Patient is in sitting and reports mild pain. Fentanyl patch is on and has used 3 dilaudid in the last 24hrs. Feels that the Neurontin has helped. Objective Last 24 Hour Vital Signs Date Time Temp Pulse Resp B/P (MAP) Pulse Ox O2 Delivery O2 Flow Rate FiO2 01/23/19 11:50 98.7 95 16 128/85 (99) 96 01/23/19 09:00 Nasal Cannula 2.0 01/23/19 08:00 97.3 93 19 135/94 (108) 98 01/23/19 04:09 97.2 90 18 139/80 (99) 97 01/23/19 00:00 98.6 94 18 126/82 (97) 97 01/22/19 23:47 Nasal Cannula 2.0 01/22/19 20:00 98.2 94 18 111/74 (86) 97 01/22/19 16:00 97.0 94 18 119/78 (92) 97 Intake and Output 01/22/19 01/23/19 19:00 07:00 Intake Total 1292.500 ml 1060 ml Output Total 500 ml 1550 ml Balance 792.500 ml -490 ml Intake Oral 480 ml 360 ml IV Total 812.500 ml 200 ml Other 500 ml Emesis 200 ml Drainage Total 450 ml Other 500 ml 900 ml # Voids 3 2 # Bowel Movements 13 8 Laboratory Tests 01/23/19 07:20: White Blood Count 18.8H, Red Blood Count 3.92L, Hemoglobin 12.4, Hematocrit 36.2L, Mean Corpuscular Volume 92, Mean Corpuscular Hemoglobin 31.7H, Mean Corpuscular Hemoglobin Concent 34.4, Red Cell Distribution Width 12.6, Platelet Count 945H, Mean Platelet Volume 6.1L, Neutrophils (%) (Auto) , Lymphocytes (%) (Auto) , Monocytes (%) (Auto) , Eosinophils (%) (Auto) , Basophils (%) (Auto) , Differential Total Cells Counted 100, Neutrophils % (Manual) 79H, Lymphocytes % (Manual) 6L, Monocytes % (Manual) 9, Eosinophils % (Manual) 1, Basophils % ( Manual) 0, Band Neutrophils 5, Platelet Estimate IncreasedH, Platelet Morphology Normal, Red Blood Cell Morphology Normal, Sodium Level 135L, Potassium Level 4.3, Chloride Level 102, Carbon Dioxide Level 23, Anion Gap 10, Blood Urea Nitrogen 17, Creatinine 1.4H, Estimat Glomerular Filtration Rate 38.1 , Glucose Level 79, Calcium Level 8.2L, Phosphorus Level 2.7, Magnesium Level 1.8, Total Bilirubin 1.1H, Direct Bilirubin 0.7H, Gamma Glutamyl Transpeptidase 144H, Aspartate Amino Transf (AST/SGOT) 15, Alanine Aminotransferase (ALT/SGPT) 16, Alkaline Phosphatase 127H, Ammonia 31, Total Protein 6.4, Albumin 2.0L, Globulin 4.4, Albumin/Globulin Ratio 0.5L Height (Feet): 5 Height (Inches): 3.00 Weight (Pounds): 130 Objective GENERAL: Alert, awake, and oriented. LUNGS: Clear bilaterally. HEART: S1, S2 regular. ABDOMEN: Tenderness to palpation with biliary stent noted. BACK: Range of motion is decreased in flexion, extension. EXTREMITIES: No cyanosis. No clubbing. No edema. NEURO: No changes. Doug Reid Jan 23, 2019 12:07
--- NOTE | 2019-01-23 12:46 | NUR ---
NURSE NOTES: PT STATES SHE WOULD LIKE TO BE PLACED IN SNF. RN LEFT MESSAGE FOR ROXANNE HUBBARD, AND JOSE HURD'S NUMBER. [facility] WANTS PT TO BE PLACED NEAR [facility].
--- NOTE | 2019-01-23 13:25 | Surgery Progress Note ---
Surgery Progress Note Subjective Additional Comments no acute events exam stable pain improved labs slowly improving ambulatory states feels better Objective Last 24 Hour Vital Signs Date Time Temp Pulse Resp B/P (MAP) Pulse Ox O2 Delivery O2 Flow Rate FiO2 01/23/19 11:50 98.7 95 16 128/85 (99) 96 01/23/19 09:00 Nasal Cannula 2.0 01/23/19 08:00 97.3 93 19 135/94 (108) 98 01/23/19 04:09 97.2 90 18 139/80 (99) 97 01/23/19 00:00 98.6 94 18 126/82 (97) 97 01/22/19 23:47 Nasal Cannula 2.0 01/22/19 20:00 98.2 94 18 111/74 (86) 97 01/22/19 16:00 97.0 94 18 119/78 (92) 97 I&O Intake and Output 01/22/19 01/23/19 19:00 07:00 Intake Total 1292.500 ml 1060 ml Output Total 500 ml 1550 ml Balance 792.500 ml -490 ml Intake Oral 480 ml 360 ml IV Total 812.500 ml 200 ml Other 500 ml Emesis 200 ml Drainage Total 450 ml Other 500 ml 900 ml # Voids 3 2 # Bowel Movements 13 8 Drains: other Cardiovascular: RSR Respiratory: clear Abdomen: soft, non-tender, present bowel sounds Extremities: no tenderness, no cyanosis Laboratory Tests Test 01/23/19 07:20 White Blood Count 18.8 K/UL (4.8-10.8) H Red Blood Count 3.92 M/UL (4.20-5.40) L Hemoglobin 12.4 G/DL (12.0-16.0) Hematocrit 36.2 % (37.0-47.0) L Mean Corpuscular Volume 92 FL (80-99) Mean Corpuscular Hemoglobin 31.7 PG (27.0-31.0) H Mean Corpuscular Hemoglobin Concent 34.4 G/DL (32.0-36.0) Red Cell Distribution Width 12.6 % (11.6-14.8) Platelet Count 945 K/UL (150-450) H Mean Platelet Volume 6.1 FL (6.5-10.1) L Neutrophils (%) (Auto) % (45.0-75.0) Lymphocytes (%) (Auto) % (20.0-45.0) Monocytes (%) (Auto) % (1.0-10.0) Eosinophils (%) (Auto) % (0.0-3.0) Basophils (%) (Auto) % (0.0-2.0) Differential Total Cells Counted 100 Neutrophils % (Manual) 79 % (45-75) H Lymphocytes % (Manual) 6 % (20-45) L Monocytes % (Manual) 9 % (1-10) Eosinophils % (Manual) 1 % (0-3) Basophils % (Manual) 0 % (0-2) Band Neutrophils 5 % (0-8) Platelet Estimate Increased H Platelet Morphology Normal Red Blood Cell Morphology Normal Sodium Level 135 MMOL/L (136-145) L Potassium Level 4.3 MMOL/L (3.5-5.1) Chloride Level 102 MMOL/L (98-107) Carbon Dioxide Level 23 MMOL/L (21-32) Anion Gap 10 mmol/L (5-15) Blood Urea Nitrogen 17 mg/dL (7-18) Creatinine 1.4 MG/DL (0.55-1.30) H Estimat Glomerular Filtration Rate 38.1 mL/min (>60) Glucose Level 79 MG/DL (74-106) Calcium Level 8.2 MG/DL (8.5-10.1) L Phosphorus Level 2.7 MG/DL (2.5-4.9) Magnesium Level 1.8 MG/DL (1.8-2.4) Total Bilirubin 1.1 MG/DL (0.2-1.0) H Direct Bilirubin 0.7 MG/DL (0.0-0.3) H Gamma Glutamyl Transpeptidase 144 U/L (5-85) H Aspartate Amino Transf (AST/SGOT) 15 U/L (15-37) Alanine Aminotransferase (ALT/SGPT) 16 U/L (12-78) Alkaline Phosphatase 127 U/L (46-116) H Ammonia 31 umol/L (11-32) Total Protein 6.4 G/DL (6.4-8.2) Albumin 2.0 G/DL (3.4-5.0) L Globulin 4.4 g/dL Albumin/Globulin Ratio 0.5 (1.0-2.7) L Plan Problems: (1) Abdominal pain Assessment & Plan: 63-year-old female patient with history of recently diagnosed pancreatic cancer in November 2018 presented to the emergency room [place] [facility] [place] complaint of abdominal pain for approximately 1 hour. Patient is status post a biliary drain placement at [facility] approximately 1 week ago. She reported that she had a first treatment of chemotherapy this past Thursday. The patient denied any nausea vomiting, denies any constipation or diarrhea. She states her pain medication was unable to relieve her pain. no fever or chills. labs as below. C Tnoted. surgery called to assist with care and management. tube checked okay for diet tube to drain IV abx d/c planning for SNF f/u with pcp / onc outpatient stable otherwise from surgical standpoint no acute surgical intervention planned iv fluids trend labs will monitor and follow with exam thank you (2) Biliary drain displacement Assessment & Plan: Daughter was able to inform me with a lot of history. Seems patient unresectable initially and attempted biliary drain placed endoscopically but unsuccessful. A external biliary drain was placed by radiology. Would patient was getting her Port-A-Cath placed a another radiologist felt he could place a internal/external biliary drain and he was able to successfully place a internal/external biliary drain. Had the trade Since. Fell off and she has been without it to drainage recently. In evaluating the trade she has some bilious output from the drain and on imaging drain looks to be appropriately placed. Labs reviewed stable. drain placed to gravity as leaking Drain putting out a ton since placed on 2 bag IMPRESSION: 1. Appropriately positioned percutaneous left biliary drain with mild intrahepatic biliary ductal dilatation. 2. Ill-defined pancreatic head/proximal body mass, likely corresponding to stated history of pancreatic neoplasm. Please note evaluation of size and vascular involvement of pancreatic masses is incomplete prior examinations and without multiphasic pancreatic protocol. 3. 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 SMV confluence is not visualized. 4. Color wall thickening with pericholecystic fluid; in the absence of distended gallbladder, these findings are critical for acute pancreatitis and clinical correlation is recommended. Transhepatic biliary drain noted. 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 Abnormal liver with area of peripheral hypoechogenicity along the posterior right lobe margin. Suggest further evaluation with contrast CT. Obscured pancreas and aorta due to bowel gas. . Interval development of moderate small bowel dilatation. Transition to relatively decompressed terminal ileum demonstrated indicating this is probably a mechanical bowel obstruction. Pneumatosis suspected within one of the proximal small bowel segments in the upper abdomen. No evidence of perforation. Development of multiloculated ascites with prominent collections contiguous with the caudal end of the right lobe of the liver capsule, Morison's pouch and inferior to the right kidney. Other generalized mild ascites noted as well. Internal/external transhepatic biliary drainage catheter in good position. No imaging evidence for catheter malfunction or biliary obstruction. CT noted. likely internal leakage from internal external drain as it was noted to be backing put few days ago hence placed on drainage bag (3) Pancreatic cancer Assessment & Plan: Pancreatic cancer, non-resectable, based on patient's info. Had a Abdominal pelvis CT reviewed 1. Appropriately positioned percutaneous left biliary drain with mild intrahepatic biliary ductal dilatation. 2. Ill- defined pancreatic head/proximal body mass, likely corresponding to stated history of pancreatic neoplasm. Please note evaluation of size and vascular involvement of pancreatic masses is incomplete prior examinations and without multiphasic pancreatic protocol. 3. 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 She has already started rx Jim Gates Jan 23, 2019 13:25
--- NOTE | 2019-01-23 15:01 | Nephrology Progress Note ---
Assessment/Plan Problem List: (1) Electrolyte abnormality (2) Pancreatic cancer (3) Biliary drain displacement (4) Abdominal pain (5) Malnutrition Assessment HypoKalemia HypoNatremia Abdominal pain. Nausea. Vomiting. UTI. Pancreatic cancer. Biliary drain displacement Malnutrition. Anemia Plan K supplement as needed, check labs change IV to isotonic solution monitor lytes start PO Folic acid Subjective ROS Limited/Unobtainable: No Constitutional: Reports: malaise Objective Objective Last 24 Hour Vital Signs Date Time Temp Pulse Resp B/P (MAP) Pulse Ox O2 Delivery O2 Flow Rate FiO2 01/23/19 11:50 98.7 95 16 128/85 (99) 96 01/23/19 09:00 Nasal Cannula 2.0 01/23/19 08:00 97.3 93 19 135/94 (108) 98 01/23/19 04:09 97.2 90 18 139/80 (99) 97 01/23/19 00:00 98.6 94 18 126/82 (97) 97 01/22/19 23:47 Nasal Cannula 2.0 01/22/19 20:00 98.2 94 18 111/74 (86) 97 01/22/19 16:00 97.0 94 18 119/78 (92) 97 Intake and Output 01/22/19 01/23/19 19:00 07:00 Intake Total 1292.500 ml 1060 ml Output Total 500 ml 1550 ml Balance 792.500 ml -490 ml Intake Oral 480 ml 360 ml IV Total 812.500 ml 200 ml Other 500 ml Emesis 200 ml Drainage Total 450 ml Other 500 ml 900 ml # Voids 3 2 # Bowel Movements 13 8 Laboratory Tests 01/23/19 07:20: White Blood Count 18.8H, Red Blood Count 3.92L, Hemoglobin 12.4, Hematocrit 36.2L, Mean Corpuscular Volume 92, Mean Corpuscular Hemoglobin 31.7H, Mean Corpuscular Hemoglobin Concent 34.4, Red Cell Distribution Width 12.6, Platelet Count 945H, Mean Platelet Volume 6.1L, Neutrophils (%) (Auto) , Lymphocytes (%) (Auto) , Monocytes (%) (Auto) , Eosinophils (%) (Auto) , Basophils (%) (Auto) , Differential Total Cells Counted 100, Neutrophils % (Manual) 79H, Lymphocytes % (Manual) 6L, Monocytes % (Manual) 9, Eosinophils % (Manual) 1, Basophils % ( Manual) 0, Band Neutrophils 5, Platelet Estimate IncreasedH, Platelet Morphology Normal, Red Blood Cell Morphology Normal, Sodium Level 135L, Potassium Level 4.3, Chloride Level 102, Carbon Dioxide Level 23, Anion Gap 10, Blood Urea Nitrogen 17, Creatinine 1.4H, Estimat Glomerular Filtration Rate 38.1 , Glucose Level 79, Calcium Level 8.2L, Phosphorus Level 2.7, Magnesium Level 1.8, Total Bilirubin 1.1H, Direct Bilirubin 0.7H, Gamma Glutamyl Transpeptidase 144H, Aspartate Amino Transf (AST/SGOT) 15, Alanine Aminotransferase (ALT/SGPT) 16, Alkaline Phosphatase 127H, Ammonia 31, Total Protein 6.4, Albumin 2.0L, Globulin 4.4, Albumin/Globulin Ratio 0.5L Height (Feet): 5 Height (Inches): 3.00 Weight (Pounds): 130 Cardiovascular: normal rate Respiratory/Chest: decreased breath sounds Abdomen: distended Objective no change Kapil Turcios MD Jan 23, 2019 15:01
[2019-01-23] MEDS: cefTRIAXone 1gm/D5W 55ml IVPB SCH ×2 (15:15)
[2019-01-23] MEDS: HYDROmorphone 4mg tab ORAL PRN ×2 (15:24→20:17)
[2019-01-23 15:56] VITALS: BP 123/77
--- NOTE | 2019-01-23 16:24 | Hematology/Onc Progress Note ---
Assessment/Plan Assessment/Plan Assessment/Plan # Pancreatic cancer, non-resectable, based on patient's info. Had a Abdominal pelvis CT reviewed 1. Appropriately positioned percutaneous left biliary drain with mild intrahepatic biliary ductal dilatation. 2. Ill-defined pancreatic head/proximal body mass, likely corresponding to stated history of pancreatic neoplasm. Please note evaluation of size and vascular involvement of pancreatic masses is incomplete prior examinations and without multiphasic pancreatic protocol. 3. 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 She has already started rx. --> gi recs noted No plans for GI procedures at this time --> surgical recommendations, no interventions at this time --> likely to continue chemo and XRT as needed with Dr. Elias Bernal (has received one chemo session) --> CA 19.9 688, in general with this presentation, poor prognosis --> if doesn't get chemo soon, likely to deteriorate, may be hospice candidate # Portal vein thrombosis with abd pain (MAY BE due to tumor encasemenet) --> may be contributor for abdominal pain --> appears to be chronic portal vein thrombosis on imaging --> minimize pain meds as much as possible --> started on lovenox, okay to transition to noac once discharged # Anemia of myelosuppressive chemo --> okay to continue on chemo at this time --> epo as stimulating factor if drops --> dw patient risks of dvt/VTE # Leukocytosis is likely due to pna --> agree to trend, improved --> abx as per id --> wbc trend 22-->20-->18k-->34k-->22-->19k # Transaminitis --> Trend LFTs --> per gi --> advance diet as tolerated # Dvt ppx scds Appreciate consultation and dw RN Subjective Constitutional: Denies: no symptoms, chills, fever, malaise, weakness, other HEENT: Denies: no symptoms, eye pain, blurred vision, tearing, double vision, ear pain, ear discharge, nose pain, nose congestion, throat pain, throat swelling, mouth pain, mouth swelling, other Cardiovascular: Denies: no symptoms, chest pain, edema, irregular heart rate, lightheadedness, palpitations, syncope, other Respiratory: Denies: no symptoms, cough, shortness of breath, SOB with excertion, SOB at rest, sputum, wheezing, other Gastrointestinal/Abdominal: Denies: no symptoms, abdomen distended, abdominal pain, black stools, tarry stools, blood in stool, constipated, diarrhea, difficulty swallowing, nausea, poor appetite, poor fluid intake, rectal bleeding , vomiting, other Genitourinary: Denies: no symptoms, burning, discharge, frequency, flank pain, hematuria, incontinence, pain, urgency, other Endocrine: Denies: no symptoms, excessive sweating, flushing, intolerance to cold, intolerance to heat, increased hunger, increased thirst, increased urine, unexplained weight gain, unexplained weight loss, other Allergies: Coded Allergies: No Known Allergies (Unverified , 01/12/19) Subjective 01/13: no events to report, no f/c, no night sweats 01/14: no bleeding, on meds, ivf 01/15: no major changes, dw patient, some minor abd pain 01/18: no major events, drain is to gravity, seen by surg, no bleeidng 01/19: awake, alert, getting dressed this am, labs noted 01/20: no events, no bleeding reported, no major changes, no fc 01/21: appears on ct scan that she has a chronic portal vein thrombosis, reviewed results with rad 01/23: to be transferred to tele for sob, and also okay with snf placement Objective Objective Current Medications Medications (Trade) Dose Ordered Sig/Zuleima Route PRN Reason Start Time Stop Time Status Last Admin Dose Admin Acetaminophen (Tylenol) 650 mg Q8H PRN ORAL Mild Pain/Temp > 100.5 01/12/19 17:30 02/11/19 17:29 01/13/19 17:27 Bisacodyl (Dulcolax) 10 mg BIDPRN PRN RECTAL Constipation 01/16/19 07:45 02/15/19 07:44 01/19/19 18:34 Ceftriaxone Sodium 1 gm/ Dextrose 55 ml @ 110 mls/hr DAILY IVPB 01/23/19 15:00 01/30/19 14:59 01/23/19 15:15 Dextrose (Dextrose 50%) 25 ml Q30M PRN IV Hypoglycemia 01/12/19 13:45 02/11/19 13:44 Dextrose (Dextrose 50%) 50 ml Q30M PRN IV Hypoglycemia 01/12/19 13:45 02/11/19 13:44 Dextrose/Sodium Chloride 1,000 ml @ 50 mls/hr Q20H IV 01/19/19 12:57 02/18/19 12:56 01/21/19 23:52 Docusate Sodium (Colace) 100 mg TWICE A DAY PRN ORAL constipation 01/22/19 10:15 02/14/19 17:59 Enoxaparin Sodium (Lovenox) 60 mg Q12HR@0600,1800 SUBQ 01/20/19 18:00 02/19/19 17:59 01/23/19 05:11 Fentanyl (Duragesic) 1 patch Q72H TDERMAL 01/19/19 12:00 01/26/19 11:59 01/22/19 12:39 Folic Acid (Folate) 5 mg DAILY ORAL 01/17/19 09:45 02/16/19 09:44 01/23/19 09:18 Gabapentin (Neurontin) 300 mg THREE TIMES A DAY ORAL 01/19/19 18:00 02/18/19 17:59 01/23/19 13:51 Hydromorphone HCl (Dilaudid) 4 mg Q4H PRN ORAL severe breakthrough pain 01/18/19 14:12 01/25/19 14:11 01/23/19 15:24 Lactulose (Cephulac) 10 gm THREE TIMES A DAY ORAL 01/16/19 13:00 02/15/19 12:59 01/21/19 17:52 Methylnaltrexone Hudson (Relistor) 12 mg QOD SUBQ 01/20/19 09:15 02/19/19 09:14 01/22/19 09:46 Miscellaneous Medication (fentaNYL Destruction) 1 ea Q72H MISC 01/19/19 12:00 02/18/19 11:59 01/22/19 12:39 Naloxone HCl (Narcan) 0.1 mg Q5M PRN IV Sedation scale 3 or 4 01/16/19 12:00 02/15/19 11:59 Ondansetron HCl (Zofran) 4 mg Q6H PRN IVP Nausea & Vomiting 01/12/19 13:45 02/11/19 13:44 01/23/19 15:18 Pantoprazole (Protonix) 40 mg DAILY IVP 01/12/19 16:45 02/11/19 16:44 01/23/19 09:20 Polyethylene Glycol (Miralax) 17 gm BEDTIME PRN ORAL constipation 01/22/19 10:30 02/15/19 20:59 Potassium Chloride (K-Dur) 40 meq TID ORAL 01/22/19 09:00 02/20/19 09:44 01/23/19 13:52 Simethicone (Mylicon) 80 mg BIDPRN PRN ORAL gas 01/18/19 21:45 02/17/19 21:44 01/21/19 14:38 Vancomycin HCl (Vanco rx to dose) 1 ea DAILY PRN MISC Per rx protocol 01/14/19 20:30 02/13/19 20:29 Vancomycin HCl 750 mg/Sodium Chloride 275 ml @ 183.333 mls/hr Q24H IVPB 01/22/19 11:00 01/27/19 10:59 01/23/19 11:20 Zolpidem Tartrate (Ambien) 5 mg HSPRN PRN ORAL Insomnia 01/20/19 06:15 01/27/19 06:14 01/22/19 21:48 Last 24 Hour Vital Signs Date Time Temp Pulse Resp B/P (MAP) Pulse Ox O2 Delivery O2 Flow Rate FiO2 01/23/19 15:56 98.8 91 20 123/77 (92) 96 01/23/19 11:50 98.7 95 16 128/85 (99) 96 01/23/19 09:00 Nasal Cannula 2.0 01/23/19 08:00 97.3 93 19 135/94 (108) 98 01/23/19 04:09 97.2 90 18 139/80 (99) 97 01/23/19 00:00 98.6 94 18 126/82 (97) 97 01/22/19 23:47 Nasal Cannula 2.0 01/22/19 20:00 98.2 94 18 111/74 (86) 97 01/22/19 16:00 97.0 94 18 119/78 (92) 97 01/22/19 11:58 96.9 17 135/92 (106) 100 01/22/19 09:00 Nasal Cannula 2.0 01/22/19 08:00 97.4 98 18 129/90 (103) 99 01/22/19 04:00 97.7 90 20 149/90 (109) 98 01/22/19 00:00 97.9 92 22 159/89 (112) 98 01/21/19 21:00 Nasal Cannula 2.0 01/21/19 20:00 98.1 109 20 157/88 (111) 94 Intake and Output 01/22/19 01/23/19 19:00 07:00 Intake Total 1292.500 ml 1060 ml Output Total 500 ml 1550 ml Balance 792.500 ml -490 ml Intake Oral 480 ml 360 ml IV Total 812.500 ml 200 ml Other 500 ml Emesis 200 ml Drainage Total 450 ml Other 500 ml 900 ml # Voids 3 2 # Bowel Movements 13 8 Labs Test 01/21/19 05:55 01/22/19 06:12 01/23/19 07:20 White Blood Count 21.9 K/UL (4.8-10.8) 19.0 K/UL (4.8-10.8) 18.8 K/UL (4.8-10.8) Red Blood Count 3.80 M/UL (4.20-5.40) 3.77 M/UL (4.20-5.40) 3.92 M/UL (4.20-5.40) Hemoglobin 12.8 G/DL (12.0-16.0) 12.0 G/DL (12.0-16.0) 12.4 G/DL (12.0-16.0) Hematocrit 36.1 % (37.0-47.0) 35.4 % (37.0-47.0) 36.2 % (37.0-47.0) Mean Corpuscular Volume 95 FL (80-99) 94 FL (80-99) 92 FL (80-99) Mean Corpuscular Hemoglobin 33.6 PG (27.0-31.0) 31.8 PG (27.0-31.0) 31.7 PG (27.0-31.0) Mean Corpuscular Hemoglobin Concent 35.3 G/DL (32.0-36.0) 33.8 G/DL (32.0-36.0) 34.4 G/DL (32.0-36.0) Red Cell Distribution Width 13.0 % (11.6-14.8) 13.7 % (11.6-14.8) 12.6 % (11.6-14.8) Platelet Count 701 K/UL (150-450) 817 K/UL (150-450) 945 K/UL (150-450) Mean Platelet Volume 5.9 FL (6.5-10.1) 5.8 FL (6.5-10.1) 6.1 FL (6.5-10.1) Neutrophils (%) (Auto) % (45.0-75.0) % (45.0-75.0) % (45.0-75.0) Lymphocytes (%) (Auto) % (20.0-45.0) % (20.0-45.0) % (20.0-45.0) Monocytes (%) (Auto) % (1.0-10.0) % (1.0-10.0) % (1.0-10.0) Eosinophils (%) (Auto) % (0.0-3.0) % (0.0-3.0) % (0.0-3.0) Basophils (%) (Auto) % (0.0-2.0) % (0.0-2.0) % (0.0-2.0) Differential Total Cells Counted 100 100 100 Neutrophils % (Manual) 83 % (45-75) 80 % (45-75) 79 % (45-75) Lymphocytes % (Manual) 6 % (20-45) 10 % (20-45) 6 % (20-45) Monocytes % (Manual) 7 % (1-10) 7 % (1-10) 9 % (1-10) Eosinophils % (Manual) 1 % (0-3) 0 % (0-3) 1 % (0-3) Basophils % (Manual) 0 % (0-2) 0 % (0-2) 0 % (0-2) Band Neutrophils 3 % (0-8) 3 % (0-8) 5 % (0-8) Platelet Estimate Increased Increased Increased Platelet Morphology Normal Normal Normal Sodium Level 138 MMOL/L (136-145) 138 MMOL/L (136-145) 135 MMOL/L (136-145) Potassium Level 3.4 MMOL/L (3.5-5.1) 2.9 MMOL/L (3.5-5.1) 4.3 MMOL/L (3.5-5.1) Chloride Level 103 MMOL/L (98-107) 103 MMOL/L (98-107) 102 MMOL/L (98-107) Carbon Dioxide Level 26 MMOL/L (21-32) 22 MMOL/L (21-32) 23 MMOL/L (21-32) Anion Gap 9 mmol/L (5-15) 13 mmol/L (5-15) 10 mmol/L (5-15) Blood Urea Nitrogen 14 mg/dL (7-18) 15 mg/dL (7-18) 17 mg/dL (7-18) Creatinine 1.4 MG/DL (0.55-1.30) 1.3 MG/DL (0.55-1.30) 1.4 MG/DL (0.55-1.30) Estimat Glomerular Filtration Rate 38.1 mL/min (>60) 41.5 mL/min (>60) 38.1 mL/min (>60) Glucose Level 76 MG/DL (74-106) 105 MG/DL (74-106) 79 MG/DL (74-106) Calcium Level 8.2 MG/DL (8.5-10.1) 7.9 MG/DL (8.5-10.1) 8.2 MG/DL (8.5-10.1) Total Bilirubin 0.8 MG/DL (0.2-1.0) 1.1 MG/DL (0.2-1.0) Aspartate Amino Transf (AST/SGOT) 15 U/L (15-37) 15 U/L (15-37) Alanine Aminotransferase (ALT/SGPT) 16 U/L (12-78) 16 U/L (12-78) Alkaline Phosphatase 113 U/L (46-116) 127 U/L (46-116) Total Protein 5.7 G/DL (6.4-8.2) 6.4 G/DL (6.4-8.2) Albumin 1.7 G/DL (3.4-5.0) 2.0 G/DL (3.4-5.0) Globulin 4.0 g/dL 4.4 g/dL Albumin/Globulin Ratio 0.4 (1.0-2.7) 0.5 (1.0-2.7) Red Blood Cell Morphology Normal Normal Random Vancomycin Level 13.8 ug/mL Phosphorus Level 2.7 MG/DL (2.5-4.9) Magnesium Level 1.8 MG/DL (1.8-2.4) Direct Bilirubin 0.7 MG/DL (0.0-0.3) Gamma Glutamyl Transpeptidase 144 U/L (5-85) Ammonia 31 umol/L (11-32) Height (Feet): 5 Height (Inches): 3.00 Weight (Pounds): 130 Roberto Davidson MD Jan 23, 2019 16:24
[2019-01-23] MEDS: D5NS 1,000 ML IV SCH (17:37)
--- NOTE | 2019-01-23 19:32 | NUR ---
HAND-OFF: Report given to Jimmie HOUSE RN.
[2019-01-23 20:00] VITALS: BP 138/89
[2019-01-23] MEDS: Zolpidem 5mg tab ORAL PRN (21:03)
--- NOTE | 2019-01-23 23:50 | NUR ---
NURSE NOTES: Patient given ambien for sleep aid. Patient woke up after "having a bad dream", naked on side of bed, unaware of what happened. SIMULATION EDUCATOR and RN at bedside to calm patient down.
[2019-01-24] VITALS: BP 131/92
[2019-01-24 04:00] VITALS: BP 132/75
[2019-01-24] MEDS: Enoxaparin 60mg Inj SUBQ SCH ×2 (05:43→18:07)
--- NOTE | 2019-01-24 07:04 | NUR ---
HAND-OFF: Report given to CAITIE Rodriguez.
--- NOTE | 2019-01-24 07:09 | NUR ---
NURSE NOTES: Patient received resting in chair next to bed, eating breakfast. Alert and orientedx4. Breathing unlabored on room air. IV site on left wrist patent and intact, running fluids at 50cc/hr. Needs attended to. Call light placed within reach, will continue to monitor.
[2019-01-24 07:27] LABS: HEMATOCRIT 36.2 % (37.0-47.0); HEMOGLOBIN 12.4 G/DL (12.0-16.0); MEAN CORPUSCULAR VOLUME 93 FL (80-99); RED BLOOD COUNT 3.87 M/UL (4.20-5.40); RED CELL DISTRIBUTION WIDTH 13.7 % (11.6-14.8); WHITE BLOOD COUNT 21.2 K/UL (4.8-10.8)
[2019-01-24 07:46] LABS: ANION GAP 10 mmol/L (5-15); BLOOD UREA NITROGEN 16 mg/dL (7-18); CALCIUM 8.4 MG/DL (8.5-10.1); CARBON DIOXIDE 20 MMOL/L (21-32); CHLORIDE 103 MMOL/L (98-107); CREATININE 1.3 MG/DL (0.55-1.30); POTASSIUM 4.7 MMOL/L (3.5-5.1); SODIUM 133 MMOL/L (136-145)
[2019-01-24 07:57] LABS: PLATELET COUNT 1040 K/UL (150-450)
[2019-01-24 08:00] VITALS: BP 142/94
--- NOTE | 2019-01-24 08:57 | General Progress Note ---
Assessment/Plan Assessment/Plan: (1) Intractable abdominal pain (2) Pancreatic cancer We will continue the Neurontin, Dilaudid and Fentanyl patch D/w Dr. Gonzales and he concurred. Subjective Date patient seen: Jan 24, 2019 Time patient seen: 08:15 - am Allergies: Coded Allergies: No Known Allergies (Unverified , 01/12/19) Subjective REVIEW OF SYSTEMS: Denies rash, fever, chills, sweating, dizziness, drowsiness, blurred vision, sore throat, change in weight. No shortness of breath or chest pain. No bowel or bladder incontinence. She is complaining of abdominal pain. SUBJECTIVE: Patient reports mild pain tolerated well on the Fentanyl patch and Dilaudid. Using 2 Dilaudid doses in the last 24hrs. No new complaints at this time. Objective Last 24 Hour Vital Signs Date Time Temp Pulse Resp B/P (MAP) Pulse Ox O2 Delivery O2 Flow Rate FiO2 01/24/19 04:00 97.7 90 22 132/75 (94) 95 01/24/19 00:00 97.2 98 22 131/92 (105) 95 01/23/19 22:17 Nasal Cannula 2.0 01/23/19 20:47 98.8 01/23/19 20:00 97.7 91 20 138/89 (105) 96 01/23/19 15:56 98.8 91 20 123/77 (92) 96 01/23/19 11:50 98.7 95 16 128/85 (99) 96 01/23/19 09:00 Nasal Cannula 2.0 Intake and Output 01/23/19 01/24/19 19:00 07:00 Intake Total 1060.000 ml 550 ml Output Total 800 ml Balance 1060.000 ml -250 ml Intake Oral 470 ml 200 ml IV Total 590.000 ml 350 ml Other 800 ml # Voids 5 3 # Bowel Movements 11 4 Laboratory Tests 01/24/19 06:30: White Blood Count 21.2H, Red Blood Count 3.87L, Hemoglobin 12.4, Hematocrit 36.2L, Mean Corpuscular Volume 93, Mean Corpuscular Hemoglobin 32.0H, Mean Corpuscular Hemoglobin Concent 34.3, Red Cell Distribution Width 13.7, Platelet Count 1040*H, Mean Platelet Volume 6.0L, Neutrophils (%) (Auto) , Lymphocytes (% ) (Auto) , Monocytes (%) (Auto) , Eosinophils (%) (Auto) , Basophils (%) (Auto) , Neutrophils % (Manual) [Pending], Lymphocytes % (Manual) [Pending], Platelet Estimate [Pending], Platelet Morphology [Pending], Sodium Level 133L, Potassium Level 4.7, Chloride Level 103, Carbon Dioxide Level 20L, Anion Gap 10, Blood Urea Nitrogen 16, Creatinine 1.3, Estimat Glomerular Filtration Rate 41.5, Glucose Level 76, Calcium Level 8.4L Height (Feet): 5 Height (Inches): 3.00 Weight (Pounds): 130 Objective GENERAL: Alert, awake, and oriented. LUNGS: Clear bilaterally. HEART: S1, S2 regular. ABDOMEN: Tenderness to palpation with biliary stent noted. BACK: Range of motion is decreased in flexion, extension. EXTREMITIES: No cyanosis. No clubbing. No edema. NEURO: No changes. Doug Reid Jan 24, 2019 08:57
[2019-01-24] MEDS: Lactulose 10gm/15ml UDC ORAL SCH ×2 (09:00→12:51)
[2019-01-24] MEDS ORDERED: Naloxone 0.4mg/ml Inj IV PRN (09:00)
--- NOTE | 2019-01-24 09:30 | General Progress Note ---
Assessment/Plan Problem List: (1) SOB (shortness of breath) ICD Codes: R06.02 - Shortness of breath SNOMED: 438301624 (2) Nausea & vomiting ICD Codes: R11.2 - Nausea with vomiting, unspecified SNOMED: 84247992 (3) Malnutrition ICD Codes: E46 - Unspecified protein-calorie malnutrition SNOMED: 42105344 (4) UTI (urinary tract infection) ICD Codes: N39.0 - Urinary tract infection, site not specified SNOMED: 68404431 (5) Abdominal pain ICD Codes: R10.9 - Unspecified abdominal pain SNOMED: 58004712 (6) Biliary drain displacement ICD Codes: T85.520A - Displacement of bile duct prosthesis, initial encounter SNOMED: 338241445 (7) Pancreatic cancer ICD Codes: C25.9 - Malignant neoplasm of pancreas, unspecified SNOMED: 172421296 Status: unchanged Assessment/Plan: pt diet pain control abx cbc bmp am dc plan snf Subjective Constitutional: Reports: weakness Allergies: Coded Allergies: No Known Allergies (Unverified , 01/12/19) All Systems: reviewed and negative except above Subjective o2nc sl nausea abd pain Objective Last 24 Hour Vital Signs Date Time Temp Pulse Resp B/P (MAP) Pulse Ox O2 Delivery O2 Flow Rate FiO2 01/24/19 04:00 97.7 90 22 132/75 (94) 95 01/24/19 00:00 97.2 98 22 131/92 (105) 95 01/23/19 22:17 Nasal Cannula 2.0 01/23/19 20:47 98.8 01/23/19 20:00 97.7 91 20 138/89 (105) 96 01/23/19 15:56 98.8 91 20 123/77 (92) 96 01/23/19 11:50 98.7 95 16 128/85 (99) 96 Intake and Output 01/23/19 01/24/19 19:00 07:00 Intake Total 1060.000 ml 550 ml Output Total 800 ml Balance 1060.000 ml -250 ml Intake Oral 470 ml 200 ml IV Total 590.000 ml 350 ml Other 800 ml # Voids 5 3 # Bowel Movements 11 4 Laboratory Tests 01/24/19 06:30: White Blood Count 21.2H, Red Blood Count 3.87L, Hemoglobin 12.4, Hematocrit 36.2L, Mean Corpuscular Volume 93, Mean Corpuscular Hemoglobin 32.0H, Mean Corpuscular Hemoglobin Concent 34.3, Red Cell Distribution Width 13.7, Platelet Count 1040*H, Mean Platelet Volume 6.0L, Neutrophils (%) (Auto) , Lymphocytes (% ) (Auto) , Monocytes (%) (Auto) , Eosinophils (%) (Auto) , Basophils (%) (Auto) , Differential Total Cells Counted 100, Neutrophils % (Manual) 91H, Lymphocytes % (Manual) 4L, Monocytes % (Manual) 4, Eosinophils % (Manual) 1, Basophils % ( Manual) 0, Band Neutrophils 0, Platelet Estimate IncreasedH, Platelet Morphology Normal, Sodium Level 133L, Potassium Level 4.7, Chloride Level 103, Carbon Dioxide Level 20L, Anion Gap 10, Blood Urea Nitrogen 16, Creatinine 1.3, Estimat Glomerular Filtration Rate 41.5, Glucose Level 76, Calcium Level 8.4L Height (Feet): 5 Height (Inches): 3.00 Weight (Pounds): 130 General Appearance: lethargic EENT: normal ENT inspection Neck: normal alignment Cardiovascular: normal peripheral pulses, normal rate, regular rhythm Respiratory/Chest: chest wall non-tender, lungs clear, normal breath sounds Abdomen: normal bowel sounds, non tender, soft Extremities: normal inspection Edema: no edema noted Arm (L), no edema noted Arm (R), no edema noted Leg (L), no edema noted Leg (R), no edema noted Pedal (L), no edema noted Pedal (R), no edema noted Generalized Neurologic: motor weakness Skin: normal pigmentation, warm/dry Elvis Luke DO Jan 24, 2019 09:29
[2019-01-24] MEDS: cefTRIAXone 1gm/D5W 55ml IVPB SCH ×2 (09:47)
[2019-01-24] MEDS: Pantoprazole Inj IVP SCH (09:47)
--- NOTE | 2019-01-24 09:50 | NUR ---
PT NOTE Attempted to see patient for PT treatment. Patient declining to participate with PT today, requesting that therapist return tomorrow, states "I don't feel like it, I was already up with nurse." Will follow up tomorrow.
--- NOTE | 2019-01-24 10:12 | NUR ---
[facility] WBC Scan: Blood drawn for [facility]ium-111 WBC labeling. Return time for [facility]ium-[facility] labeled WBCs from [facility] is 3-6 hours Addendum: 01/24/19 at 1453 by KENAN SUN Indium-111 labeled WBCs re-injected. Scanning will be performed tomorrow per protocol
[2019-01-24] MEDS: HYDROmorphone 4mg tab ORAL PRN ×2 (10:22→17:53)
[2019-01-24] MEDS: Relistor 12mg/0.6ml Vial SUBQ SCH (10:38)
--- NOTE | 2019-01-24 11:04 | Surgery Progress Note ---
Surgery Progress Note Subjective Additional Comments Overall patient feels okay but worsening leukocytosis thrombocytosis abnormal labs Her exam is stable and unchanged Drain continues to drain a fair amount Objective Last 24 Hour Vital Signs Date Time Temp Pulse Resp B/P (MAP) Pulse Ox O2 Delivery O2 Flow Rate FiO2 01/24/19 04:00 97.7 90 22 132/75 (94) 95 01/24/19 00:00 97.2 98 22 131/92 (105) 95 01/23/19 22:17 Nasal Cannula 2.0 01/23/19 20:47 98.8 01/23/19 20:00 97.7 91 20 138/89 (105) 96 01/23/19 15:56 98.8 91 20 123/77 (92) 96 01/23/19 11:50 98.7 95 16 128/85 (99) 96 I&O Intake and Output 01/23/19 01/24/19 19:00 07:00 Intake Total 1060.000 ml 550 ml Output Total 800 ml Balance 1060.000 ml -250 ml Intake Oral 470 ml 200 ml IV Total 590.000 ml 350 ml Other 800 ml # Voids 5 3 # Bowel Movements 11 4 Dressing: other Wound: other Drains: other Cardiovascular: RSR Respiratory: clear, decreased breath sounds Abdomen: soft, non-tender, present bowel sounds Extremities: no tenderness, no cyanosis Laboratory Tests Test 01/24/19 06:30 01/24/19 10:15 White Blood Count 21.2 K/UL (4.8-10.8) H Red Blood Count 3.87 M/UL (4.20-5.40) L Hemoglobin 12.4 G/DL (12.0-16.0) Hematocrit 36.2 % (37.0-47.0) L Mean Corpuscular Volume 93 FL (80-99) Mean Corpuscular Hemoglobin 32.0 PG (27.0-31.0) H Mean Corpuscular Hemoglobin Concent 34.3 G/DL (32.0-36.0) Red Cell Distribution Width 13.7 % (11.6-14.8) Platelet Count 1040 K/UL (150-450) *H Mean Platelet Volume 6.0 FL (6.5-10.1) L Neutrophils (%) (Auto) % (45.0-75.0) Lymphocytes (%) (Auto) % (20.0-45.0) Monocytes (%) (Auto) % (1.0-10.0) Eosinophils (%) (Auto) % (0.0-3.0) Basophils (%) (Auto) % (0.0-2.0) Differential Total Cells Counted 100 Neutrophils % (Manual) 91 % (45-75) H Lymphocytes % (Manual) 4 % (20-45) L Monocytes % (Manual) 4 % (1-10) Eosinophils % (Manual) 1 % (0-3) Basophils % (Manual) 0 % (0-2) Band Neutrophils 0 % (0-8) Platelet Estimate Increased H Platelet Morphology Normal Sodium Level 133 MMOL/L (136-145) L Potassium Level 4.7 MMOL/L (3.5-5.1) Chloride Level 103 MMOL/L (98-107) Carbon Dioxide Level 20 MMOL/L (21-32) L Anion Gap 10 mmol/L (5-15) Blood Urea Nitrogen 16 mg/dL (7-18) Creatinine 1.3 MG/DL (0.55-1.30) Estimat Glomerular Filtration Rate 41.5 mL/min (>60) Glucose Level 76 MG/DL (74-106) Calcium Level 8.4 MG/DL (8.5-10.1) L Vancomycin Level Trough Pending Plan Problems: (1) Abdominal pain Assessment & Plan: 63-year-old female patient with history of recently diagnosed pancreatic cancer in November 2018 presented to the emergency room at [facility] with complaint of abdominal pain for approximately 1 hour. Patient is status post a biliary drain placement at [facility] approximately 1 week ago. She reported that she had a first treatment of chemotherapy this past Thursday. The patient denied any nausea vomiting, denies any constipation or diarrhea. She states her pain medication was unable to relieve her pain. no fever or chills. labs as below. C Tnoted. surgery called to assist with care and management. tube checked okay for diet tube to drain IV abx d/c planning for SNF f/u with pcp / onc outpatient stable otherwise from surgical standpoint no acute surgical intervention planned Probably has extensive tumor burden given interventions and findings noted. No surgical recommendation at this time. Possible that fluid collection in case in the abdomen infected but to operate on this would be ill advised at this time and patient's current condition. Continue with antibiotics iv fluids trend labs will monitor and follow with exam thank you (2) Biliary drain displacement Assessment & Plan: Daughter was able to inform me with a lot of history. Seems patient unresectable initially and attempted biliary drain placed endoscopically but unsuccessful. A external biliary drain was placed by radiology. Would patient was getting her Port-A-Cath placed a another radiologist felt he could place a internal/external biliary drain and he was able to successfully place a internal/external biliary drain. Had the trade Since. Fell off and she has been without it to drainage recently. In evaluating the trade she has some bilious output from the drain and on imaging drain looks to be appropriately placed. Labs reviewed stable. drain placed to gravity as leaking Drain putting out a ton since placed on 2 bag IMPRESSION: 1. Appropriately positioned percutaneous left biliary drain with mild intrahepatic biliary ductal dilatation. 2. Ill-defined pancreatic head/proximal body mass, likely corresponding to stated history of pancreatic neoplasm. Please note evaluation of size and vascular involvement of pancreatic masses is incomplete prior examinations and without multiphasic pancreatic protocol. 3. 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 SMV confluence is not visualized. 4. Color wall thickening with pericholecystic fluid; in the absence of distended gallbladder, these findings are critical for acute pancreatitis and clinical correlation is recommended. Transhepatic biliary drain noted. 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 Abnormal liver with area of peripheral hypoechogenicity along the posterior right lobe margin. Suggest further evaluation with contrast CT. Obscured pancreas and aorta due to bowel gas. . Interval development of moderate small bowel dilatation. Transition to relatively decompressed terminal ileum demonstrated indicating this is probably a mechanical bowel obstruction. Pneumatosis suspected within one of the proximal small bowel segments in the upper abdomen. No evidence of perforation. Development of multiloculated ascites with prominent collections contiguous with the caudal end of the right lobe of the liver capsule, Morison's pouch and inferior to the right kidney. Other generalized mild ascites noted as well. Internal/external transhepatic biliary drainage catheter in good position. No imaging evidence for catheter malfunction or biliary obstruction. CT noted. likely internal leakage from internal external drain as it was noted to be backing put few days ago hence placed on drainage bag (3) Pancreatic cancer Assessment & Plan: Pancreatic cancer, non-resectable, based on patient's info. Had a Abdominal pelvis CT reviewed 1. Appropriately positioned percutaneous left biliary drain with mild intrahepatic biliary ductal dilatation. 2. Ill- defined pancreatic head/proximal body mass, likely corresponding to stated history of pancreatic neoplasm. Please note evaluation of size and vascular involvement of pancreatic masses is incomplete prior examinations and without multiphasic pancreatic protocol. 3. 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 She has already started rx Jim Gates Jan 24, 2019 11:04
[2019-01-24] MEDS: Vancomycin 750mg/NS 275ml IVPB SCH ×2 (11:24)
[2019-01-24 11:54] VITALS: BP 123/83
[2019-01-24] MEDS: D5NS 1,000 ML IV SCH (12:52)
--- NOTE | 2019-01-24 13:00 | GI Progress Note ---
Assessment/Plan Problems: (1) Pancreatic cancer ICD Codes: C25.9 - Malignant neoplasm of pancreas, unspecified SNOMED: 678387926 (2) Biliary drain displacement ICD Codes: T85.520A - Displacement of bile duct prosthesis, initial encounter SNOMED: 433774941 (3) Abdominal pain ICD Codes: R10.9 - Unspecified abdominal pain SNOMED: 19292887 Status: unchanged Status Narrative Discussed with Dr. Rocha. Assessment/Plan Abdominal pelvis CT reviewed 1. Appropriately positioned percutaneous left biliary drain with mild intrahepatic biliary ductal dilatation. 2. Ill-defined pancreatic head/proximal body mass, likely corresponding to stated history of pancreatic neoplasm. Please note evaluation of size and vascular involvement of pancreatic masses is incomplete prior examinations and without multiphasic pancreatic protocol. 3. 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 SMV confluence is not visualized. 4. Color wall thickening with pericholecystic fluid; in the absence of distended gallbladder, these findings are critical for acute pancreatitis and clinical correlation is recommended. No plans for GI procedures at this time. Symptomatic treatment surgical recommendations, biliary drain placed to gravity with high output Follow-up pain management recommendations ppi Trend LFTs advance diet as tolerated We will follow-up The patient was seen and examined at bedside and all new and available data was reviewed in the patients chart. I agree with the above findings, impression and plan. (Patient seen earlier today. Signature stamp does not reflect patient encounter time.). - Indra Rocha MD Subjective Subjective Patient still complains of abdominal pain, but states her pain is improved with increased dosage of medication Objective Last 24 Hour Vital Signs Date Time Temp Pulse Resp B/P (MAP) Pulse Ox O2 Delivery O2 Flow Rate FiO2 01/24/19 11:54 97.5 95 19 123/83 (96) 97 01/24/19 09:00 Nasal Cannula 2.0 01/24/19 08:00 97.2 91 20 142/94 (110) 97 01/24/19 04:00 97.7 90 22 132/75 (94) 95 01/24/19 00:00 97.2 98 22 131/92 (105) 95 01/23/19 22:17 Nasal Cannula 2.0 01/23/19 20:47 98.8 01/23/19 20:00 97.7 91 20 138/89 (105) 96 01/23/19 15:56 98.8 91 20 123/77 (92) 96 Intake and Output 01/23/19 01/24/19 19:00 07:00 Intake Total 1060.000 ml 550 ml Output Total 800 ml Balance 1060.000 ml -250 ml Intake Oral 470 ml 200 ml IV Total 590.000 ml 350 ml Other 800 ml # Voids 5 3 # Bowel Movements 11 4 Laboratory Tests Test 01/24/19 06:30 01/24/19 10:15 White Blood Count 21.2 K/UL (4.8-10.8) H Red Blood Count 3.87 M/UL (4.20-5.40) L Hemoglobin 12.4 G/DL (12.0-16.0) Hematocrit 36.2 % (37.0-47.0) L Mean Corpuscular Volume 93 FL (80-99) Mean Corpuscular Hemoglobin 32.0 PG (27.0-31.0) H Mean Corpuscular Hemoglobin Concent 34.3 G/DL (32.0-36.0) Red Cell Distribution Width 13.7 % (11.6-14.8) Platelet Count 1040 K/UL (150-450) *H Mean Platelet Volume 6.0 FL (6.5-10.1) L Neutrophils (%) (Auto) % (45.0-75.0) Lymphocytes (%) (Auto) % (20.0-45.0) Monocytes (%) (Auto) % (1.0-10.0) Eosinophils (%) (Auto) % (0.0-3.0) Basophils (%) (Auto) % (0.0-2.0) Differential Total Cells Counted 100 Neutrophils % (Manual) 91 % (45-75) H Lymphocytes % (Manual) 4 % (20-45) L Monocytes % (Manual) 4 % (1-10) Eosinophils % (Manual) 1 % (0-3) Basophils % (Manual) 0 % (0-2) Band Neutrophils 0 % (0-8) Platelet Estimate Increased H Platelet Morphology Normal Sodium Level 133 MMOL/L (136-145) L Potassium Level 4.7 MMOL/L (3.5-5.1) Chloride Level 103 MMOL/L (98-107) Carbon Dioxide Level 20 MMOL/L (21-32) L Anion Gap 10 mmol/L (5-15) Blood Urea Nitrogen 16 mg/dL (7-18) Creatinine 1.3 MG/DL (0.55-1.30) Estimat Glomerular Filtration Rate 41.5 mL/min (>60) Glucose Level 76 MG/DL (74-106) Calcium Level 8.4 MG/DL (8.5-10.1) L Vancomycin Level Trough 17.7 ug/mL (5.0-12.0) H Height (Feet): 5 Height (Inches): 3.00 Weight (Pounds): 130 General Appearance: WD/WN, no apparent distress, alert Cardiovascular: normal rate Respiratory/Chest: normal breath sounds, no respiratory distress Abdominal Exam: normal bowel sounds, non tender, soft, other - percutaneous drain Extremities: non-tender Jeff Rueda [employer]ORE MA[employer]GER Jan 24, 2019 13:00
--- NOTE | 2019-01-24 14:22 | NUR ---
*-* INSURANCE *-* ALL AVAILABLE CLINICALS HAVE BEEN FAXED TO: REF#[id number] - FOR TRACKING PURPOSES THIS IS SHARED RISK NO CM ASSIGNED PH#[phone] FAX#[phone] REVIEWS[facility]CLINICALS & [facility]#[id number] CM: TAMMY PH#[phone] EXT [phone] FAX#[phone] REVIEWS/CLINICALS
--- NOTE | 2019-01-24 15:52 | Nephrology Progress Note ---
Assessment/Plan Problem List: (1) Electrolyte abnormality (2) Pancreatic cancer (3) Biliary drain displacement (4) Abdominal pain (5) Malnutrition Assessment HypoKalemia HypoNatremia Abdominal pain. Nausea. Vomiting. UTI. Pancreatic cancer. Biliary drain displacement Malnutrition. Anemia Plan K supplement as needed, check labs change IV to isotonic solution monitor lytes start PO Folic acid Subjective ROS Limited/Unobtainable: No Constitutional: Reports: malaise, weakness, other - complains of abdominal pain Objective Objective Last 24 Hour Vital Signs Date Time Temp Pulse Resp B/P (MAP) Pulse Ox O2 Delivery O2 Flow Rate FiO2 01/24/19 11:54 97.5 95 19 123/83 (96) 97 01/24/19 09:00 Nasal Cannula 2.0 01/24/19 08:00 97.2 91 20 142/94 (110) 97 01/24/19 04:00 97.7 90 22 132/75 (94) 95 01/24/19 00:00 97.2 98 22 131/92 (105) 95 01/23/19 22:17 Nasal Cannula 2.0 01/23/19 20:47 98.8 01/23/19 20:00 97.7 91 20 138/89 (105) 96 01/23/19 15:56 98.8 91 20 123/77 (92) 96 Intake and Output 01/23/19 01/24/19 19:00 07:00 Intake Total 1060.000 ml 550 ml Output Total 800 ml Balance 1060.000 ml -250 ml Intake Oral 470 ml 200 ml IV Total 590.000 ml 350 ml Other 800 ml # Voids 5 3 # Bowel Movements 11 4 Laboratory Tests 01/24/19 06:30: White Blood Count 21.2H, Red Blood Count 3.87L, Hemoglobin 12.4, Hematocrit 36.2L, Mean Corpuscular Volume 93, Mean Corpuscular Hemoglobin 32.0H, Mean Corpuscular Hemoglobin Concent 34.3, Red Cell Distribution Width 13.7, Platelet Count 1040*H, Mean Platelet Volume 6.0L, Neutrophils (%) (Auto) , Lymphocytes (% ) (Auto) , Monocytes (%) (Auto) , Eosinophils (%) (Auto) , Basophils (%) (Auto) , Differential Total Cells Counted 100, Neutrophils % (Manual) 91H, Lymphocytes % (Manual) 4L, Monocytes % (Manual) 4, Eosinophils % (Manual) 1, Basophils % ( Manual) 0, Band Neutrophils 0, Platelet Estimate IncreasedH, Platelet Morphology Normal, Sodium Level 133L, Potassium Level 4.7, Chloride Level 103, Carbon Dioxide Level 20L, Anion Gap 10, Blood Urea Nitrogen 16, Creatinine 1.3, Estimat Glomerular Filtration Rate 41.5, Glucose Level 76, Calcium Level 8.4L 01/24/19 10:15: Vancomycin Level Trough 17.7H Height (Feet): 5 Height (Inches): 3.00 Weight (Pounds): 130 General Appearance: moderate distress Cardiovascular: tachycardia Respiratory/Chest: decreased breath sounds Abdomen: distended Objective no change Kapil Turcios MD Jan 24, 2019 15:52
--- NOTE | 2019-01-24 15:58 | Hematology/Onc Progress Note ---
Assessment/Plan Assessment/Plan Assessment/Plan # Pancreatic cancer, non-resectable, based on patient's info. Had a Abdominal pelvis CT reviewed 1. Appropriately positioned percutaneous left biliary drain with mild intrahepatic biliary ductal dilatation. 2. Ill-defined pancreatic head/proximal body mass, likely corresponding to stated history of pancreatic neoplasm. Please note evaluation of size and vascular involvement of pancreatic masses is incomplete prior examinations and without multiphasic pancreatic protocol. 3. 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 She has already started rx. --> gi recs noted No plans for GI procedures at this time --> surgical recommendations, no interventions at this time --> likely to continue chemo and XRT as needed with Dr. Elias Bernal (has received one chemo session) --> CA 19.9 688, in general with this presentation, poor prognosis --> if doesn't get chemo soon, likely to deteriorate, may be hospice candidate # Portal vein thrombosis with abd pain (MAY BE due to tumor encasemenet) --> may be contributor for abdominal pain --> appears to be chronic portal vein thrombosis on imaging --> minimize pain meds as much as possible --> started on lovenox, okay to transition to noac once discharged # Thrombocytosis, is secondary to underlying process --> less likely myeloproliferative --> smear has been reviewed --> trend 700-->800-->920-->1040k --> consider asa if worsens, doesn't need leukapheresis # Anemia of myelosuppressive chemo --> okay to continue on chemo at this time --> epo as stimulating factor if drops --> dw patient risks of dvt/VTE # Leukocytosis is likely due to pna --> agree to trend, improved --> abx as per id --> wbc trend 22-->20-->18k-->34k-->22-->19k # Transaminitis --> Trend LFTs --> per gi --> advance diet as tolerated # Dvt ppx scds Appreciate consultation and dw RN Subjective Constitutional: Denies: no symptoms, chills, fever, malaise, weakness, other HEENT: Denies: no symptoms, eye pain, blurred vision, tearing, double vision, ear pain, ear discharge, nose pain, nose congestion, throat pain, throat swelling, mouth pain, mouth swelling, other Cardiovascular: Denies: no symptoms, chest pain, edema, irregular heart rate, lightheadedness, palpitations, syncope, other Respiratory: Denies: no symptoms, cough, shortness of breath, SOB with excertion, SOB at rest, sputum, wheezing, other Gastrointestinal/Abdominal: Denies: no symptoms, abdomen distended, abdominal pain, black stools, tarry stools, blood in stool, constipated, diarrhea, difficulty swallowing, nausea, poor appetite, poor fluid intake, rectal bleeding , vomiting, other Genitourinary: Denies: no symptoms, burning, discharge, frequency, flank pain, hematuria, incontinence, pain, urgency, other Neurologic/Psychiatric: Denies: no symptoms, anxiety, depressed, emotional problems, headache, numbness, paresthesia, pre-existing deficit, seizure, tingling, tremors, weakness, other Endocrine: Denies: no symptoms, excessive sweating, flushing, intolerance to cold, intolerance to heat, increased hunger, increased thirst, increased urine, unexplained weight gain, unexplained weight loss, other Allergies: Coded Allergies: No Known Allergies (Unverified , 01/12/19) Subjective 01/13: no events to report, no f/c, no night sweats 01/14: no bleeding, on meds, ivf 01/15: no major changes, dw patient, some minor abd pain 01/18: no major events, drain is to gravity, seen by surg, no bleeidng 01/19: awake, alert, getting dressed this am, labs noted 01/20: no events, no bleeding reported, no major changes, no fc 01/21: appears on ct scan that she has a chronic portal vein thrombosis, reviewed results with rad 01/23: to be transferred to [facility], and also okay with snf placement 01/24: no major changes, no bleeding reported, no f/c Objective Objective Current Medications Medications (Trade) Dose Ordered Sig/Zuleima Route PRN Reason Start Time Stop Time Status Last Admin Dose Admin Acetaminophen (Tylenol) 650 mg Q8H PRN ORAL Mild Pain/Temp > 100.5 01/12/19 17:30 02/11/19 17:29 01/13/19 17:27 Bisacodyl (Dulcolax) 10 mg BIDPRN PRN RECTAL Constipation 01/16/19 07:45 02/15/19 07:44 01/19/19 18:34 Ceftriaxone Sodium 1 gm/ Dextrose 55 ml @ 110 mls/hr DAILY IVPB 01/23/19 15:00 01/30/19 14:59 01/24/19 09:47 Dextrose (Dextrose 50%) 25 ml Q30M PRN IV Hypoglycemia 01/12/19 13:45 02/11/19 13:44 Dextrose (Dextrose 50%) 50 ml Q30M PRN IV Hypoglycemia 01/12/19 13:45 02/11/19 13:44 Dextrose/Sodium Chloride 1,000 ml @ 50 mls/hr Q20H IV 01/19/19 12:57 02/18/19 12:56 01/23/19 17:37 Docusate Sodium (Colace) 100 mg TWICE A DAY PRN ORAL constipation 01/22/19 10:15 02/14/19 17:59 Enoxaparin Sodium (Lovenox) 60 mg Q12HR@0600,1800 SUBQ 01/20/19 18:00 02/19/19 17:59 01/24/19 05:43 Fentanyl (Duragesic) 1 patch Q72H TDERMAL 01/25/19 12:00 02/01/19 11:59 Folic Acid (Folate) 5 mg DAILY ORAL 01/17/19 09:45 02/16/19 09:44 01/24/19 09:48 Gabapentin (Neurontin) 300 mg THREE TIMES A DAY ORAL 01/19/19 18:00 02/18/19 17:59 01/24/19 12:52 Hydromorphone HCl (Dilaudid) 4 mg Q4H PRN ORAL severe breakthrough pain 01/24/19 10:12 01/31/19 10:11 01/24/19 10:22 Methylnaltrexone [place] (Relistor) 12 mg QOD SUBQ 01/20/19 09:15 02/19/19 09:14 01/24/19 10:38 Miscellaneous Medication (fentaNYL Destruction) 1 ea Q72H MISC 01/25/19 11:59 02/24/19 11:58 Naloxone HCl (Narcan) 0.1 mg Q5M PRN IV Sedation scale 3 or 4 01/24/19 09:00 02/23/19 08:54 Ondansetron HCl (Zofran) 4 mg Q6H PRN IVP Nausea & Vomiting 01/12/19 13:45 02/11/19 13:44 01/23/19 15:18 Pantoprazole (Protonix) 40 mg DAILY IVP 01/12/19 16:45 02/11/19 16:44 01/24/19 09:47 Polyethylene Glycol (Miralax) 17 gm BEDTIME PRN ORAL constipation 01/22/19 10:30 02/15/19 20:59 Simethicone (Mylicon) 80 mg BIDPRN PRN ORAL gas 01/18/19 21:45 02/17/19 21:44 01/21/19 14:38 Vancomycin HCl (Vanco rx to dose) 1 ea DAILY PRN MISC Per rx protocol 01/14/19 20:30 02/13/19 20:29 Vancomycin HCl 750 mg/Sodium Chloride 275 ml @ 183.333 mls/hr Q24H IVPB 01/22/19 11:00 01/27/19 10:59 01/24/19 11:24 Zolpidem Tartrate (Ambien) 5 mg HSPRN PRN ORAL Insomnia 01/20/19 06:15 01/27/19 06:14 01/23/19 21:03 Last 24 Hour Vital Signs Date Time Temp Pulse Resp B/P (MAP) Pulse Ox O2 Delivery O2 Flow Rate FiO2 01/24/19 11:54 97.5 95 19 123/83 (96) 97 01/24/19 09:00 Nasal Cannula 2.0 01/24/19 08:00 97.2 91 20 142/94 (110) 97 01/24/19 04:00 97.7 90 22 132/75 (94) 95 01/24/19 00:00 97.2 98 22 131/92 (105) 95 01/23/19 22:17 Nasal Cannula 2.0 01/23/19 20:47 98.8 01/23/19 20:00 97.7 91 20 138/89 (105) 96 01/23/19 15:56 98.8 91 20 123/77 (92) 96 01/23/19 11:50 98.7 95 16 128/85 (99) 96 01/23/19 09:00 Nasal Cannula 2.0 01/23/19 08:00 97.3 93 19 135/94 (108) 98 01/23/19 04:09 97.2 90 18 139/80 (99) 97 01/23/19 00:00 98.6 94 18 126/82 (97) 97 01/22/19 23:47 Nasal Cannula 2.0 01/22/19 20:00 98.2 94 18 111/74 (86) 97 01/22/19 16:00 97.0 94 18 119/78 (92) 97 Intake and Output 01/23/19 01/24/19 19:00 07:00 Intake Total 1060.000 ml 550 ml Output Total 800 ml Balance 1060.000 ml -250 ml Intake Oral 470 ml 200 ml IV Total 590.000 ml 350 ml Other 800 ml # Voids 5 3 # Bowel Movements 11 4 Labs Test 01/22/19 06:12 01/23/19 07:20 01/24/19 06:30 01/24/19 10:15 White Blood Count 19.0 K/UL (4.8-10.8) 18.8 K/UL (4.8-10.8) 21.2 K/UL (4.8-10.8) Red Blood Count 3.77 M/UL (4.20-5.40) 3.92 M/UL (4.20-5.40) 3.87 M/UL (4.20-5.40) Hemoglobin 12.0 G/DL (12.0-16.0) 12.4 G/DL (12.0-16.0) 12.4 G/DL (12.0-16.0) Hematocrit 35.4 % (37.0-47.0) 36.2 % (37.0-47.0) 36.2 % (37.0-47.0) Mean Corpuscular Volume 94 FL (80-99) 92 FL (80-99) 93 FL (80-99) Mean Corpuscular Hemoglobin 31.8 PG (27.0-31.0) 31.7 PG (27.0-31.0) 32.0 PG (27.0-31.0) Mean Corpuscular Hemoglobin Concent 33.8 G/DL (32.0-36.0) 34.4 G/DL (32.0-36.0) 34.3 G/DL (32.0-36.0) Red Cell Distribution Width 13.7 % (11.6-14.8) 12.6 % (11.6-14.8) 13.7 % (11.6-14.8) Platelet Count 817 K/UL (150-450) 945 K/UL (150-450) 1040 K/UL (150-450) Mean Platelet Volume 5.8 FL (6.5-10.1) 6.1 FL (6.5-10.1) 6.0 FL (6.5-10.1) Neutrophils (%) (Auto) % (45.0-75.0) % (45.0-75.0) % (45.0-75.0) Lymphocytes (%) (Auto) % (20.0-45.0) % (20.0-45.0) % (20.0-45.0) Monocytes (%) (Auto) % (1.0-10.0) % (1.0-10.0) % (1.0-10.0) Eosinophils (%) (Auto) % (0.0-3.0) % (0.0-3.0) % (0.0-3.0) Basophils (%) (Auto) % (0.0-2.0) % (0.0-2.0) % (0.0-2.0) Differential Total Cells Counted 100 100 100 Neutrophils % (Manual) 80 % (45-75) 79 % (45-75) 91 % (45-75) Lymphocytes % (Manual) 10 % (20-45) 6 % (20-45) 4 % (20-45) Monocytes % (Manual) 7 % (1-10) 9 % (1-10) 4 % (1-10) Eosinophils % (Manual) 0 % (0-3) 1 % (0-3) 1 % (0-3) Basophils % (Manual) 0 % (0-2) 0 % (0-2) 0 % (0-2) Band Neutrophils 3 % (0-8) 5 % (0-8) 0 % (0-8) Platelet Estimate Increased Increased Increased Platelet Morphology Normal Normal Normal Red Blood Cell Morphology Normal Normal Sodium Level 138 MMOL/L (136-145) 135 MMOL/L (136-145) 133 MMOL/L (136-145) Potassium Level 2.9 MMOL/L (3.5-5.1) 4.3 MMOL/L (3.5-5.1) 4.7 MMOL/L (3.5-5.1) Chloride Level 103 MMOL/L (98-107) 102 MMOL/L (98-107) 103 MMOL/L (98-107) Carbon Dioxide Level 22 MMOL/L (21-32) 23 MMOL/L (21-32) 20 MMOL/L (21-32) Anion Gap 13 mmol/L (5-15) 10 mmol/L (5-15) 10 mmol/L (5-15) Blood Urea Nitrogen 15 mg/dL (7-18) 17 mg/dL (7-18) 16 mg/dL (7-18) Creatinine 1.3 MG/DL (0.55-1.30) 1.4 MG/DL (0.55-1.30) 1.3 MG/DL (0.55-1.30) Estimat Glomerular Filtration Rate 41.5 mL/min (>60) 38.1 mL/min (>60) 41.5 mL/min (>60) Glucose Level 105 MG/DL (74-106) 79 MG/DL (74-106) 76 MG/DL (74-106) Calcium Level 7.9 MG/DL (8.5-10.1) 8.2 MG/DL (8.5-10.1) 8.4 MG/DL (8.5-10.1) Random Vancomycin Level 13.8 ug/mL Phosphorus Level 2.7 MG/DL (2.5-4.9) Magnesium Level 1.8 MG/DL (1.8-2.4) Total Bilirubin 1.1 MG/DL (0.2-1.0) Direct Bilirubin 0.7 MG/DL (0.0-0.3) Gamma Glutamyl Transpeptidase 144 U/L (5-85) Aspartate Amino Transf (AST/SGOT) 15 U/L (15-37) Alanine Aminotransferase (ALT/SGPT) 16 U/L (12-78) Alkaline Phosphatase 127 U/L (46-116) Ammonia 31 umol/L (11-32) Total Protein 6.4 G/DL (6.4-8.2) Albumin 2.0 G/DL (3.4-5.0) Globulin 4.4 g/dL Albumin/Globulin Ratio 0.5 (1.0-2.7) Vancomycin Level Trough 17.7 ug/mL (5.0-12.0) Height (Feet): 5 Height (Inches): 3.00 Weight (Pounds): 130 Roberto Davidson MD Jan 24, 2019 15:58
[2019-01-24 16:00] VITALS: BP 120/80
--- NOTE | 2019-01-24 19:16 | NUR ---
HAND-OFF: Report given to Vidhi BLOOD.
--- NOTE | 2019-01-24 19:19 | NUR ---
NURSE NOTES: Received report from CAITIE Rodriguez. Patient is in bed and asleep. On room air with no signs of distress. IV intact and patent. Bed locked and in lowest position. Call light in reach. Will continue to monitor the patient.
[2019-01-24 20:00] VITALS: BP 132/77
[2019-01-25] VITALS: BP 118/78
[2019-01-25] MEDS: HYDROmorphone 4mg tab ORAL PRN ×6 (01:10→22:51)
[2019-01-25 04:00] VITALS: BP 112/71
[2019-01-25] MEDS: Enoxaparin 60mg Inj SUBQ SCH ×2 (05:18→18:09)
--- NOTE | 2019-01-25 06:07 | Hematology/Onc Progress Note ---
Assessment/Plan Assessment/Plan Assessment/Plan # Pancreatic cancer, non-resectable, based on patient's info. Had a Abdominal pelvis CT reviewed 1. Appropriately positioned percutaneous left biliary drain with mild intrahepatic biliary ductal dilatation. 2. Ill-defined pancreatic head/proximal body mass, likely corresponding to stated history of pancreatic neoplasm. Please note evaluation of size and vascular involvement of pancreatic masses is incomplete prior examinations and without multiphasic pancreatic protocol. 3. 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 She has already started rx. --> gi recs noted No plans for GI procedures at this time --> surgical recommendations, no interventions at this time --> likely to continue chemo and XRT as needed with Dr. Elias Bernal (has received one chemo session) --> CA 19.9 688, in general with this presentation, poor prognosis --> if doesn't get chemo soon, likely to deteriorate, may be hospice candidate # Portal vein thrombosis with abd pain (MAY BE due to tumor encasement) --> may be contributor for abdominal pain --> appears to be chronic portal vein thrombosis on imaging --> minimize pain meds as much as possible --> started on lovenox, okay to transition to noac once discharged # Thrombocytosis, is secondary to underlying process --> less likely myeloproliferative --> smear has been reviewed --> trend 700-->800-->920-->1040k --> consider asa if worsens, doesn't need leukapheresis # Anemia of myelosuppressive chemo --> okay to continue on chemo at this time --> epo as stimulating factor if drops --> dw patient risks of dvt/VTE # Leukocytosis is likely due to pna --> agree to trend, improved --> abx as per id --> wbc trend 22-->20-->18k-->34k-->22-->19k-->21k # Transaminitis --> Trend LFTs --> per gi --> advance diet as tolerated # Dvt ppx scds Appreciate consultation and dw RN Subjective Constitutional: Denies: no symptoms, chills, fever, malaise, weakness, other HEENT: Denies: no symptoms, eye pain, blurred vision, tearing, double vision, ear pain, ear discharge, nose pain, nose congestion, throat pain, throat swelling, mouth pain, mouth swelling, other Cardiovascular: Denies: no symptoms, chest pain, edema, irregular heart rate, lightheadedness, palpitations, syncope, other Respiratory: Denies: no symptoms, cough, shortness of breath, SOB with excertion, SOB at rest, sputum, wheezing, other Gastrointestinal/Abdominal: Denies: no symptoms, abdomen distended, abdominal pain, black stools, tarry stools, blood in stool, constipated, diarrhea, difficulty swallowing, nausea, poor appetite, poor fluid intake, rectal bleeding , vomiting, other Genitourinary: Denies: no symptoms, burning, discharge, frequency, flank pain, hematuria, incontinence, pain, urgency, other Endocrine: Denies: no symptoms, excessive sweating, flushing, intolerance to cold, intolerance to heat, increased hunger, increased thirst, increased urine, unexplained weight gain, unexplained weight loss, other Allergies: Coded Allergies: No Known Allergies (Unverified , 01/12/19) Subjective 01/13: no events to report, no f/c, no night sweats 01/14: no bleeding, on meds, ivf 01/15: no major changes, dw patient, some minor abd pain 01/18: no major events, drain is to gravity, seen by surg, no bleeidng 01/19: awake, alert, getting dressed this am, labs noted 01/20: no events, no bleeding reported, no major changes, no fc 01/21: appears on ct scan that she has a chronic portal vein thrombosis, reviewed results with rad 01/23: to be transferred to [facility] for sob, and also okay with snf placement 01/24: no major changes, no bleeding reported, no f/c 01/25: no events, no complaints in the am, sleeping, no chills Objective Objective Current Medications Medications (Trade) Dose Ordered Sig/Zuleima Route PRN Reason Start Time Stop Time Status Last Admin Dose Admin Acetaminophen (Tylenol) 650 mg Q8H PRN ORAL Mild Pain/Temp > 100.5 01/12/19 17:30 02/11/19 17:29 01/13/19 17:27 Bisacodyl (Dulcolax) 10 mg BIDPRN PRN RECTAL Constipation 01/16/19 07:45 02/15/19 07:44 01/19/19 18:34 Ceftriaxone Sodium 1 gm/ Dextrose 55 ml @ 110 mls/hr DAILY IVPB 01/23/19 15:00 01/30/19 14:59 01/24/19 09:47 Dextrose (Dextrose 50%) 25 ml Q30M PRN IV Hypoglycemia 01/12/19 13:45 02/11/19 13:44 Dextrose (Dextrose 50%) 50 ml Q30M PRN IV Hypoglycemia 01/12/19 13:45 02/11/19 13:44 Dextrose/Sodium Chloride 1,000 ml @ 50 mls/hr Q20H IV 01/19/19 12:57 02/18/19 12:56 01/23/19 17:37 Docusate Sodium (Colace) 100 mg TWICE A DAY PRN ORAL constipation 01/22/19 10:15 02/14/19 17:59 Enoxaparin Sodium (Lovenox) 60 mg Q12HR@0600,1800 SUBQ 01/20/19 18:00 02/19/19 17:59 01/25/19 05:18 Fentanyl (Duragesic) 1 patch Q72H TDERMAL 01/25/19 12:00 02/01/19 11:59 Folic Acid (Folate) 5 mg DAILY ORAL 01/17/19 09:45 02/16/19 09:44 01/24/19 09:48 Gabapentin (Neurontin) 300 mg THREE TIMES A DAY ORAL 01/19/19 18:00 02/18/19 17:59 01/24/19 17:53 Hydromorphone HCl (Dilaudid) 4 mg Q4H PRN ORAL severe breakthrough pain 01/24/19 10:12 01/31/19 10:11 01/25/19 05:11 Methylnaltrexone [place] (Relistor) 12 mg QOD SUBQ 01/20/19 09:15 02/19/19 09:14 01/24/19 10:38 Miscellaneous Medication (fentaNYL Destruction) 1 ea Q72H MISC 01/25/19 11:59 02/24/19 11:58 Naloxone HCl (Narcan) 0.1 mg Q5M PRN IV Sedation scale 3 or 4 01/24/19 09:00 02/23/19 08:54 Ondansetron HCl (Zofran) 4 mg Q6H PRN IVP Nausea & Vomiting 01/12/19 13:45 02/11/19 13:44 01/23/19 15:18 Pantoprazole (Protonix) 40 mg DAILY IVP 01/12/19 16:45 02/11/19 16:44 01/24/19 09:47 Polyethylene Glycol (Miralax) 17 gm BEDTIME PRN ORAL constipation 01/22/19 10:30 02/15/19 20:59 Simethicone (Mylicon) 80 mg BIDPRN PRN ORAL gas 01/18/19 21:45 02/17/19 21:44 01/21/19 14:38 Vancomycin HCl (Vanco rx to dose) 1 ea DAILY PRN MISC Per rx protocol 01/14/19 20:30 02/13/19 20:29 Vancomycin HCl 750 mg/Sodium Chloride 275 ml @ 183.333 mls/hr Q24H IVPB 01/22/19 11:00 01/27/19 10:59 01/24/19 11:24 Zolpidem Tartrate (Ambien) 5 mg HSPRN PRN ORAL Insomnia 01/20/19 06:15 01/27/19 06:14 01/23/19 21:03 Last 24 Hour Vital Signs Date Time Temp Pulse Resp B/P (MAP) Pulse Ox O2 Delivery O2 Flow Rate FiO2 01/25/19 04:00 98.1 91 20 112/71 (85) 98 01/25/19 00:00 97.7 90 18 118/78 (91) 97 01/24/19 20:02 Nasal Cannula 2.0 01/24/19 20:00 97.6 85 18 132/77 (95) 98 01/24/19 16:00 97.6 89 18 120/80 (93) 96 01/24/19 11:54 97.5 95 19 123/83 (96) 97 01/24/19 09:00 Nasal Cannula 2.0 01/24/19 08:00 97.2 91 20 142/94 (110) 97 01/24/19 04:00 97.7 90 22 132/75 (94) 95 01/24/19 00:00 97.2 98 22 131/92 (105) 95 01/23/19 22:17 Nasal Cannula 2.0 01/23/19 20:47 98.8 11/3/19 20:00 97.7 91 20 138/89 (105) 96 01/23/19 15:56 98.8 91 20 123/77 (92) 96 01/23/19 11:50 98.7 95 16 128/85 (99) 96 01/23/19 09:00 Nasal Cannula 2.0 01/23/19 08:00 97.3 93 19 135/94 (108) 98 Intake and Output 01/24/19 01/25/19 19:00 07:00 Intake Total 530 ml 740 ml Output Total 1200 ml Balance 530 ml -460 ml Intake Oral 480 ml 240 ml IV Total 50 ml 500 ml Other 1200 ml # Voids 2 # Bowel Movements 11 4 Labs Test 01/22/19 06:12 01/23/19 07:20 01/24/19 06:30 01/24/19 10:15 White Blood Count 19.0 K/UL (4.8-10.8) 18.8 K/UL (4.8-10.8) 21.2 K/UL (4.8-10.8) Red Blood Count 3.77 M/UL (4.20-5.40) 3.92 M/UL (4.20-5.40) 3.87 M/UL (4.20-5.40) Hemoglobin 12.0 G/DL (12.0-16.0) 12.4 G/DL (12.0-16.0) 12.4 G/DL (12.0-16.0) Hematocrit 35.4 % (37.0-47.0) 36.2 % (37.0-47.0) 36.2 % (37.0-47.0) Mean Corpuscular Volume 94 FL (80-99) 92 FL (80-99) 93 FL (80-99) Mean Corpuscular Hemoglobin 31.8 PG (27.0-31.0) 31.7 PG (27.0-31.0) 32.0 PG (27.0-31.0) Mean Corpuscular Hemoglobin Concent 33.8 G/DL (32.0-36.0) 34.4 G/DL (32.0-36.0) 34.3 G/DL (32.0-36.0) Red Cell Distribution Width 13.7 % (11.6-14.8) 12.6 % (11.6-14.8) 13.7 % (11.6-14.8) Platelet Count 817 K/UL (150-450) 945 K/UL (150-450) 1040 K/UL (150-450) Mean Platelet Volume 5.8 FL (6.5-10.1) 6.1 FL (6.5-10.1) 6.0 FL (6.5-10.1) Neutrophils (%) (Auto) % (45.0-75.0) % (45.0-75.0) % (45.0-75.0) Lymphocytes (%) (Auto) % (20.0-45.0) % (20.0-45.0) % (20.0-45.0) Monocytes (%) (Auto) % (1.0-10.0) % (1.0-10.0) % (1.0-10.0) Eosinophils (%) (Auto) % (0.0-3.0) % (0.0-3.0) % (0.0-3.0) Basophils (%) (Auto) % (0.0-2.0) % (0.0-2.0) % (0.0-2.0) Differential Total Cells Counted 100 100 100 Neutrophils % (Manual) 80 % (45-75) 79 % (45-75) 91 % (45-75) Lymphocytes % (Manual) 10 % (20-45) 6 % (20-45) 4 % (20-45) Monocytes % (Manual) 7 % (1-10) 9 % (1-10) 4 % (1-10) Eosinophils % (Manual) 0 % (0-3) 1 % (0-3) 1 % (0-3) Basophils % (Manual) 0 % (0-2) 0 % (0-2) 0 % (0-2) Band Neutrophils 3 % (0-8) 5 % (0-8) 0 % (0-8) Platelet Estimate Increased Increased Increased Platelet Morphology Normal Normal Normal Red Blood Cell Morphology Normal Normal Sodium Level 138 MMOL/L (136-145) 135 MMOL/L (136-145) 133 MMOL/L (136-145) Potassium Level 2.9 MMOL/L (3.5-5.1) 4.3 MMOL/L (3.5-5.1) 4.7 MMOL/L (3.5-5.1) Chloride Level 103 MMOL/L (98-107) 102 MMOL/L (98-107) 103 MMOL/L (98-107) Carbon Dioxide Level 22 MMOL/L (21-32) 23 MMOL/L (21-32) 20 MMOL/L (21-32) Anion Gap 13 mmol/L (5-15) 10 mmol/L (5-15) 10 mmol/L (5-15) Blood Urea Nitrogen 15 mg/dL (7-18) 17 mg/dL (7-18) 16 mg/dL (7-18) Creatinine 1.3 MG/DL (0.55-1.30) 1.4 MG/DL (0.55-1.30) 1.3 MG/DL (0.55-1.30) Estimat Glomerular Filtration Rate 41.5 mL/min (>60) 38.1 mL/min (>60) 41.5 mL/min (>60) Glucose Level 105 MG/DL (74-106) 79 MG/DL (74-106) 76 MG/DL (74-106) Calcium Level 7.9 MG/DL (8.5-10.1) 8.2 MG/DL (8.5-10.1) 8.4 MG/DL (8.5-10.1) Random Vancomycin Level 13.8 ug/mL Phosphorus Level 2.7 MG/DL (2.5-4.9) Magnesium Level 1.8 MG/DL (1.8-2.4) Total Bilirubin 1.1 MG/DL (0.2-1.0) Direct Bilirubin 0.7 MG/DL (0.0-0.3) Gamma Glutamyl Transpeptidase 144 U/L (5-85) Aspartate Amino Transf (AST/SGOT) 15 U/L (15-37) Alanine Aminotransferase (ALT/SGPT) 16 U/L (12-78) Alkaline Phosphatase 127 U/L (46-116) Ammonia 31 umol/L (11-32) Total Protein 6.4 G/DL (6.4-8.2) Albumin 2.0 G/DL (3.4-5.0) Globulin 4.4 g/dL Albumin/Globulin Ratio 0.5 (1.0-2.7) Vancomycin Level Trough 17.7 ug/mL (5.0-12.0) Height (Feet): 5 Height (Inches): 3.00 Weight (Pounds): 130 Roberto Davidson MD Jan 25, 2019 06:07
[2019-01-25 07:06] LABS: HEMATOCRIT 38.9 % (37.0-47.0); HEMOGLOBIN 12.9 G/DL (12.0-16.0); MEAN CORPUSCULAR VOLUME 96 FL (80-99); RED BLOOD COUNT 4.06 M/UL (4.20-5.40)
[2019-01-25 07:27] LABS: PLATELET COUNT 1057 K/UL (150-450)
[2019-01-25 07:49] LABS: ALANINE AMINOTRANSFERASE 18 U/L (12-78); ALBUMIN 2.1 G/DL (3.4-5.0); ALBUMIN/GLOBULIN RATIO 0.5 (1.0-2.7); ALKALINE PHOSPHATASE 155 U/L (46-116); ANION GAP 11 mmol/L (5-15); ASPARTATE AMINO TRANSFERASE 21 U/L (15-37); BILIRUBIN,TOTAL 0.9 MG/DL (0.2-1.0); BLOOD UREA NITROGEN 14 mg/dL (7-18); CALCIUM 8.3 MG/DL (8.5-10.1); CARBON DIOXIDE 21 MMOL/L (21-32); CHLORIDE 102 MMOL/L (98-107); CREATININE 1.1 MG/DL (0.55-1.30); PHOSPHORUS 2.1 MG/DL (2.5-4.9); POTASSIUM 3.6 MMOL/L (3.5-5.1); SODIUM 134 MMOL/L (136-145)
[2019-01-25 08:00] VITALS: BP 122/81
--- NOTE | 2019-01-25 08:04 | NUR ---
HAND-OFF: Report given to Venita Radford RN.
--- NOTE | 2019-01-25 08:05 | NUR ---
NURSE NOTES: Received patient in bed, A&Ox4, not in respiratory/cardiac distress @ this time. Patient is in pain but bearable without pain medication. will wait until the next due. Biliary drain cath noted, draining well to gravity. IV intact, no s/s of infiltration. Bed is in lowest position and locked. Call light within reach. Will continue plan of care.
--- NOTE | 2019-01-25 09:08 | General Progress Note ---
Assessment/Plan Assessment/Plan: (1) Intractable abdominal pain (2) Pancreatic cancer We will continue the Neurontin, Dilaudid and Fentanyl patch D/w Dr. Gonzales and he concurred. Subjective Date patient seen: Jan 25, 2019 Time patient seen: 08:15 - am Allergies: Coded Allergies: No Known Allergies (Unverified , 01/12/19) Subjective REVIEW OF SYSTEMS: Denies rash, fever, chills, sweating, dizziness, drowsiness, blurred vision, sore throat, change in weight. No shortness of breath or chest pain. No bowel or bladder incontinence. She is complaining of abdominal pain. SUBJECTIVE: Patient is in chair and reports that her pain continues to be well controlled and tolerated on the Fentanyl patch and Dilaudid 5 doses in the last 24hrs with the Neurontin. She has no new complaints at this time. Objective Last 24 Hour Vital Signs Date Time Temp Pulse Resp B/P (MAP) Pulse Ox O2 Delivery O2 Flow Rate FiO2 01/25/19 04:00 98.1 91 20 112/71 (85) 98 01/25/19 00:00 97.7 90 18 118/78 (91) 97 01/24/19 20:02 Nasal Cannula 2.0 01/24/19 20:00 97.6 85 18 132/77 (95) 98 01/24/19 16:00 97.6 89 18 120/80 (93) 96 01/24/19 11:54 97.5 95 19 123/83 (96) 97 Intake and Output 01/24/19 01/25/19 19:00 07:00 Intake Total 530 ml 740 ml Output Total 1200 ml Balance 530 ml -460 ml Intake Oral 480 ml 240 ml IV Total 50 ml 500 ml Other 1200 ml # Voids 2 # Bowel Movements 11 4 Laboratory Tests 01/24/19 10:15: Vancomycin Level Trough 17.7H 01/25/19 05:35: White Blood Count 22.0H, Red Blood Count 4.06L, Hemoglobin 12.9, Hematocrit 38.9 , Mean Corpuscular Volume 96, Mean Corpuscular Hemoglobin 31.8H, Mean Corpuscular Hemoglobin Concent 33.2, Red Cell Distribution Width 14.0, Platelet Count 1057*H, Mean Platelet Volume 5.8L, Neutrophils (%) (Auto) , Lymphocytes (% ) (Auto) , Monocytes (%) (Auto) , Eosinophils (%) (Auto) , Basophils (%) (Auto) , Differential Total Cells Counted 100, Neutrophils % (Manual) 90H, Lymphocytes % (Manual) 5L, Monocytes % (Manual) 5, Eosinophils % (Manual) 0, Basophils % ( Manual) 0, Band Neutrophils 0, Platelet Estimate IncreasedH, Platelet Morphology Normal, Sodium Level 134L, Potassium Level 3.6, Chloride Level 102, Carbon Dioxide Level 21, Anion Gap 11, Blood Urea Nitrogen 14, Creatinine 1.1, Estimat Glomerular Filtration Rate 50.3, Glucose Level 66L, Calcium Level 8.3L, Phosphorus Level 2.1L, Magnesium Level 1.7L, Total Bilirubin 0.9, Aspartate Amino Transf (AST/SGOT) 21, Alanine Aminotransferase (ALT/SGPT) 18, Alkaline Phosphatase 155H, C-Reactive Protein, Quantitative 21.2H, Pro-B-Type Natriuretic Peptide 1424H, Total Protein 6.7, Albumin 2.1L, Globulin 4.6, Albumin/Globulin Ratio 0.5L Height (Feet): 5 Height (Inches): 3.00 Weight (Pounds): 130 Objective GENERAL: Alert, awake, and oriented. LUNGS: Clear bilaterally. HEART: S1, S2 regular. ABDOMEN: Tenderness to palpation with biliary stent noted. BACK: Range of motion is decreased in flexion, extension. EXTREMITIES: No cyanosis. No clubbing. No edema. NEURO: No changes. Doug Reid Jan 25, 2019 09:08
[2019-01-25] MEDS: Pantoprazole Inj IVP SCH (09:18)
[2019-01-25] MEDS: cefTRIAXone 1gm/D5W 55ml IVPB SCH ×2 (09:18)
--- NOTE | 2019-01-25 09:30 | NUR ---
NURSE NOTES: RN received PLT result of [address] Davidson is aware with no new order. Patient denies chest pain or SOB.
[2019-01-25] MEDS: D5NS 1,000 ML IV SCH (09:43)
[2019-01-25 10:13] VITALS: BP 122/81
[2019-01-25] MEDS ORDERED: Potassium Phosphate 30 MM in NS 275 ML IV ONE (11:00)
--- NOTE | 2019-01-25 11:37 | NUR ---
*-* INSURANCE *-* UPDATED CLINICALS HAVE BEEN FAXED TO: REF#[id number] - FOR TRACKING PURPOSES THIS IS SHARED RISK NO CM ASSIGNED PH#[phone] FAX#[phone] RE[facility]WS[facility]CL[facility]ICALS & [facility]#[id number] CM: TAMMY #[phone] EXT [id number] FAX#[phone] REVIEWS/CLINICALS
[2019-01-25] MEDS: fentaNYL Destruction MISC SCH (11:59)
[2019-01-25 12:00] VITALS: BP 131/76
[2019-01-25] MEDS: Vancomycin 750mg/NS 275ml IVPB SCH ×2 (12:38)
--- NOTE | 2019-01-25 13:04 | GI Progress Note ---
Assessment/Plan Problems: (1) Pancreatic cancer ICD Codes: C25.9 - Malignant neoplasm of pancreas, unspecified SNOMED: 824990825 (2) Biliary drain displacement ICD Codes: T85.520A - Displacement of bile duct prosthesis, initial encounter SNOMED: 368950612 (3) Abdominal pain ICD Codes: R10.9 - Unspecified abdominal pain SNOMED: 32119964 Status: unchanged Status Narrative Discussed with Dr. Rocha Assessment/Plan Abdominal pelvis CT reviewed 1. Appropriately positioned percutaneous left biliary drain with mild intrahepatic biliary ductal dilatation. 2. Ill-defined pancreatic head/proximal body mass, likely corresponding to stated history of pancreatic neoplasm. Please note evaluation of size and vascular involvement of pancreatic masses is incomplete prior examinations and without multiphasic pancreatic protocol. 3. 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 SMV confluence is not visualized. 4. Color wall thickening with pericholecystic fluid; in the absence of distended gallbladder, these findings are critical for acute pancreatitis and clinical correlation is recommended. No plans for GI procedures at this time. Symptomatic treatment Pain management surgical recommendations, biliary drain placed to gravity with high output Follow-up pain management recommendations ppi Trend LFTs advance diet as tolerated We will follow-up The patient was seen and examined at bedside and all new and available data was reviewed in the patients chart. I agree with the above findings, impression and plan. (Patient seen earlier today. Signature stamp does not reflect patient encounter time.). - Indra Rocha MD Subjective Subjective Patient still complains of abdominal pain Objective Last 24 Hour Vital Signs Date Time Temp Pulse Resp B/P (MAP) Pulse Ox O2 Delivery O2 Flow Rate FiO2 01/25/19 12:00 97.9 87 16 131/76 (94) 97 01/25/19 10:28 Room Air 01/25/19 10:13 96.8 84 18 122/81 (95) 98 01/25/19 09:00 Nasal Cannula 2.0 01/25/19 08:00 97.0 84 18 122/81 (95) 98 01/25/19 04:00 98.1 91 20 112/71 (85) 98 01/25/19 00:00 97.7 90 18 118/78 (91) 97 01/24/19 20:02 Nasal Cannula 2.0 01/24/19 20:00 97.6 85 18 132/77 (95) 98 01/24/19 16:00 97.6 89 18 120/80 (93) 96 Intake and Output 01/24/19 01/25/19 19:00 07:00 Intake Total 530 ml 740 ml Output Total 1200 ml Balance 530 ml -460 ml Intake Oral 480 ml 240 ml IV Total 50 ml 500 ml Other 1200 ml # Voids 2 # Bowel Movements 11 4 Laboratory Tests Test 01/25/19 05:35 White Blood Count 22.0 K/UL (4.8-10.8) H Red Blood Count 4.06 M/UL (4.20-5.40) L Hemoglobin 12.9 G/DL (12.0-16.0) Hematocrit 38.9 % (37.0-47.0) Mean Corpuscular Volume 96 FL (80-99) Mean Corpuscular Hemoglobin 31.8 PG (27.0-31.0) H Mean Corpuscular Hemoglobin Concent 33.2 G/DL (32.0-36.0) Red Cell Distribution Width 14.0 % (11.6-14.8) Platelet Count 1057 K/UL (150-450) *H Mean Platelet Volume 5.8 FL (6.5-10.1) L Neutrophils (%) (Auto) % (45.0-75.0) Lymphocytes (%) (Auto) % (20.0-45.0) Monocytes (%) (Auto) % (1.0-10.0) Eosinophils (%) (Auto) % (0.0-3.0) Basophils (%) (Auto) % (0.0-2.0) Differential Total Cells Counted 100 Neutrophils % (Manual) 90 % (45-75) H Lymphocytes % (Manual) 5 % (20-45) L Monocytes % (Manual) 5 % (1-10) Eosinophils % (Manual) 0 % (0-3) Basophils % (Manual) 0 % (0-2) Band Neutrophils 0 % (0-8) Platelet Estimate Increased H Platelet Morphology Normal Sodium Level 134 MMOL/L (136-145) L Potassium Level 3.6 MMOL/L (3.5-5.1) Chloride Level 102 MMOL/L (98-107) Carbon Dioxide Level 21 MMOL/L (21-32) Anion Gap 11 mmol/L (5-15) Blood Urea Nitrogen 14 mg/dL (7-18) Creatinine 1.1 MG/DL (0.55-1.30) Estimat Glomerular Filtration Rate 50.3 mL/min (>60) Glucose Level 66 MG/DL (74-106) L Calcium Level 8.3 MG/DL (8.5-10.1) L Phosphorus Level 2.1 MG/DL (2.5-4.9) L Magnesium Level 1.7 MG/DL (1.8-2.4) L Total Bilirubin 0.9 MG/DL (0.2-1.0) Aspartate Amino Transf (AST/SGOT) 21 U/L (15-37) Alanine Aminotransferase (ALT/SGPT) 18 U/L (12-78) Alkaline Phosphatase 155 U/L (46-116) H C-Reactive Protein, Quantitative 21.2 mg/dL (0.00-0.90) H Pro-B-Type Natriuretic Peptide 1424 pg/mL (0-125) H Total Protein 6.7 G/DL (6.4-8.2) Albumin 2.1 G/DL (3.4-5.0) L Globulin 4.6 g/dL Albumin/Globulin Ratio 0.5 (1.0-2.7) L Height (Feet): 5 Height (Inches): 3.00 Weight (Pounds): 130 General Appearance: WD/WN, no apparent distress, alert Cardiovascular: normal rate Respiratory/Chest: normal breath sounds, no respiratory distress Abdominal Exam: normal bowel sounds, non tender, soft Extremities: normal range of motion, non-tender Jeff Rueda NP Jan 25, 2019 13:04
--- NOTE | 2019-01-25 13:26 | NUR ---
PT notes: Patient adamantly declined treatment despite lots of encouragement; RN aware of patients' refusal; will follow up next treatment schedule.
--- NOTE | 2019-01-25 14:03 | General Progress Note ---
Assessment/Plan Problem List: (1) SOB (shortness of breath) ICD Codes: R06.02 - Shortness of breath SNOMED: 762096661 (2) Nausea & vomiting ICD Codes: R11.2 - Nausea with vomiting, unspecified SNOMED: 15096579 (3) Malnutrition ICD Codes: E46 - Unspecified protein-calorie malnutrition SNOMED: 82064815 (4) UTI (urinary tract infection) ICD Codes: N39.0 - Urinary tract infection, site not specified SNOMED: 14079436 (5) Abdominal pain ICD Codes: R10.9 - Unspecified abdominal pain SNOMED: 68599707 (6) Biliary drain displacement ICD Codes: T85.520A - Displacement of bile duct prosthesis, initial encounter SNOMED: 960856984 (7) Pancreatic cancer ICD Codes: C25.9 - Malignant neoplasm of pancreas, unspecified SNOMED: 036793928 Status: unchanged Assessment/Plan: pt diet pain control abx cbc bmp am dc plan snf Subjective Constitutional: Reports: weakness Allergies: Coded Allergies: No Known Allergies (Unverified , 01/12/19) All Systems: reviewed and negative except above Subjective o2nc sl nausea abd pain Objective Last 24 Hour Vital Signs Date Time Temp Pulse Resp B/P (MAP) Pulse Ox O2 Delivery O2 Flow Rate FiO2 01/25/19 12:00 97.9 87 16 131/76 (94) 97 01/25/19 10:28 Room Air 01/25/19 10:13 96.8 84 18 122/81 (95) 98 01/25/19 09:00 Nasal Cannula 2.0 01/25/19 08:00 97.0 84 18 122/81 (95) 98 01/25/19 04:00 98.1 91 20 112/71 (85) 98 01/25/19 00:00 97.7 90 18 118/78 (91) 97 01/24/19 20:02 Nasal Cannula 2.0 01/24/19 20:00 97.6 85 18 132/77 (95) 98 01/24/19 16:00 97.6 89 18 120/80 (93) 96 Intake and Output 01/24/19 01/25/19 19:00 07:00 Intake Total 530 ml 740 ml Output Total 1200 ml Balance 530 ml -460 ml Intake Oral 480 ml 240 ml IV Total 50 ml 500 ml Other 1200 ml # Voids 2 # Bowel Movements 11 4 Laboratory Tests 01/25/19 05:35: White Blood Count 22.0H, Red Blood Count 4.06L, Hemoglobin 12.9, Hematocrit 38.9 , Mean Corpuscular Volume 96, Mean Corpuscular Hemoglobin 31.8H, Mean Corpuscular Hemoglobin Concent 33.2, Red Cell Distribution Width 14.0, Platelet Count 1057*H, Mean Platelet Volume 5.8L, Neutrophils (%) (Auto) , Lymphocytes (% ) (Auto) , Monocytes (%) (Auto) , Eosinophils (%) (Auto) , Basophils (%) (Auto) , Differential Total Cells Counted 100, Neutrophils % (Manual) 90H, Lymphocytes % (Manual) 5L, Monocytes % (Manual) 5, Eosinophils % (Manual) 0, Basophils % ( Manual) 0, Band Neutrophils 0, Platelet Estimate IncreasedH, Platelet Morphology Normal, Sodium Level 134L, Potassium Level 3.6, Chloride Level 102, Carbon Dioxide Level 21, Anion Gap 11, Blood Urea Nitrogen 14, Creatinine 1.1, Estimat Glomerular Filtration Rate 50.3, Glucose Level 66L, Calcium Level 8.3L, Phosphorus Level 2.1L, Magnesium Level 1.7L, Total Bilirubin 0.9, Aspartate Amino Transf (AST/SGOT) 21, Alanine Aminotransferase (ALT/SGPT) 18, Alkaline Phosphatase 155H, C-Reactive Protein, Quantitative 21.2H, Pro-B-Type Natriuretic Peptide 1424H, Total Protein 6.7, Albumin 2.1L, Globulin 4.6, Albumin/Globulin Ratio 0.5L Height (Feet): 5 Height (Inches): 3.00 Weight (Pounds): 130 General Appearance: lethargic EENT: normal ENT inspection Neck: normal alignment Cardiovascular: normal peripheral pulses, normal rate, regular rhythm Respiratory/Chest: chest wall non-tender, lungs clear, normal breath sounds Abdomen: normal bowel sounds, non tender, soft Extremities: normal inspection Edema: no edema noted Arm (L), no edema noted Arm (R), no edema noted Leg (L), no edema noted Leg (R), no edema noted Pedal (L), no edema noted Pedal (R), no edema noted Generalized Neurologic: responsive, motor weakness Skin: normal pigmentation, warm/dry Elvis Luke DO Jan 25, 2019 14:03
--- NOTE | 2019-01-25 14:55 | Surgery Progress Note ---
Surgery Progress Note Subjective Additional Comments states she feels okay abd pain no n/v drain functional exam stable labs noted.. leukocytosis, plt >1k Objective Last 24 Hour Vital Signs Date Time Temp Pulse Resp B/P (MAP) Pulse Ox O2 Delivery O2 Flow Rate FiO2 01/25/19 12:00 97.9 87 16 131/76 (94) 97 01/25/19 10:28 Room Air 01/25/19 10:13 96.8 84 18 122/81 (95) 98 01/25/19 09:00 Nasal Cannula 2.0 01/25/19 08:00 97.0 84 18 122/81 (95) 98 01/25/19 04:00 98.1 91 20 112/71 (85) 98 01/25/19 00:00 97.7 90 18 118/78 (91) 97 01/24/19 20:02 Nasal Cannula 2.0 01/24/19 20:00 97.6 85 18 132/77 (95) 98 01/24/19 16:00 97.6 89 18 120/80 (93) 96 I&O Intake and Output 01/24/19 01/25/19 19:00 07:00 Intake Total 530 ml 740 ml Output Total 1200 ml Balance 530 ml -460 ml Intake Oral 480 ml 240 ml IV Total 50 ml 500 ml Other 1200 ml # Voids 2 # Bowel Movements 11 4 Dressing: dry Wound: clean Drains: other Cardiovascular: RSR Respiratory: clear Abdomen: soft, non-tender, present bowel sounds Extremities: no edema, no tenderness, no cyanosis Laboratory Tests Test 01/25/19 05:35 White Blood Count 22.0 K/UL (4.8-10.8) H Red Blood Count 4.06 M/UL (4.20-5.40) L Hemoglobin 12.9 G/DL (12.0-16.0) Hematocrit 38.9 % (37.0-47.0) Mean Corpuscular Volume 96 FL (80-99) Mean Corpuscular Hemoglobin 31.8 PG (27.0-31.0) H Mean Corpuscular Hemoglobin Concent 33.2 G/DL (32.0-36.0) Red Cell Distribution Width 14.0 % (11.6-14.8) Platelet Count 1057 K/UL (150-450) *H Mean Platelet Volume 5.8 FL (6.5-10.1) L Neutrophils (%) (Auto) % (45.0-75.0) Lymphocytes (%) (Auto) % (20.0-45.0) Monocytes (%) (Auto) % (1.0-10.0) Eosinophils (%) (Auto) % (0.0-3.0) Basophils (%) (Auto) % (0.0-2.0) Differential Total Cells Counted 100 Neutrophils % (Manual) 90 % (45-75) H Lymphocytes % (Manual) 5 % (20-45) L Monocytes % (Manual) 5 % (1-10) Eosinophils % (Manual) 0 % (0-3) Basophils % (Manual) 0 % (0-2) Band Neutrophils 0 % (0-8) Platelet Estimate Increased H Platelet Morphology Normal Sodium Level 134 MMOL/L (136-145) L Potassium Level 3.6 MMOL/L (3.5-5.1) Chloride Level 102 MMOL/L (98-107) Carbon Dioxide Level 21 MMOL/L (21-32) Anion Gap 11 mmol/L (5-15) Blood Urea Nitrogen 14 mg/dL (7-18) Creatinine 1.1 MG/DL (0.55-1.30) Estimat Glomerular Filtration Rate 50.3 mL/min (>60) Glucose Level 66 MG/DL (74-106) L Calcium Level 8.3 MG/DL (8.5-10.1) L Phosphorus Level 2.1 MG/DL (2.5-4.9) L Magnesium Level 1.7 MG/DL (1.8-2.4) L Total Bilirubin 0.9 MG/DL (0.2-1.0) Aspartate Amino Transf (AST/SGOT) 21 U/L (15-37) Alanine Aminotransferase (ALT/SGPT) 18 U/L (12-78) Alkaline Phosphatase 155 U/L (46-116) H C-Reactive Protein, Quantitative 21.2 mg/dL (0.00-0.90) H Pro-B-Type Natriuretic Peptide 1424 pg/mL (0-125) H Total Protein 6.7 G/DL (6.4-8.2) Albumin 2.1 G/DL (3.4-5.0) L Globulin 4.6 g/dL Albumin/Globulin Ratio 0.5 (1.0-2.7) L Plan Problems: (1) Abdominal pain Assessment & Plan: 63-year-old female patient with history of recently diagnosed pancreatic cancer in November 2018 presented to the emergency room at [facility] with complaint of abdominal pain for approximately 1 hour. Patient is status post a biliary drain placement at [facility] approximately 1 week ago. She reported that she had a first treatment of chemotherapy this past Thursday. The patient denied any nausea vomiting, denies any constipation or diarrhea. She states her pain medication was unable to relieve her pain. no fever or chills. labs as below. C Tnoted. surgery called to assist with care and management. tube checked okay for diet tube to drain IV abx d/c planning for SNF f/u with pcp / onc outpatient stable otherwise from surgical standpoint no acute surgical intervention planned Probably has extensive tumor burden given interventions and findings noted. No surgical recommendation at this time. Possible that fluid collection in case in the abdomen infected but to operate on this would be ill advised at this time and patient's current condition. Continue with antibiotics iv fluids trend labs will monitor and follow with exam thank you (2) Biliary drain displacement Assessment & Plan: Daughter was able to inform me with a lot of history. Seems patient unresectable initially and attempted biliary drain placed endoscopically but unsuccessful. A external biliary drain was placed by radiology. Would patient was getting her Port-A-Cath placed a another radiologist felt he could place a internal/external biliary drain and he was able to successfully place a internal/external biliary drain. Had the trade Since. Fell off and she has been without it to drainage recently. In evaluating the trade she has some bilious output from the drain and on imaging drain looks to be appropriately placed. Labs reviewed stable. drain placed to gravity as leaking Drain putting out a ton since placed on 2 bag IMPRESSION: 1. Appropriately positioned percutaneous left biliary drain with mild intrahepatic biliary ductal dilatation. 2. Ill-defined pancreatic head/proximal body mass, likely corresponding to stated history of pancreatic neoplasm. Please note evaluation of size and vascular involvement of pancreatic masses is incomplete prior examinations and without multiphasic pancreatic protocol. 3. 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 SMV confluence is not visualized. 4. Color wall thickening with pericholecystic fluid; in the absence of distended gallbladder, these findings are critical for acute pancreatitis and clinical correlation is recommended. Transhepatic biliary drain noted. 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 Abnormal liver with area of peripheral hypoechogenicity along the posterior right lobe margin. Suggest further evaluation with contrast CT. Obscured pancreas and aorta due to bowel gas. . Interval development of moderate small bowel dilatation. Transition to relatively decompressed terminal ileum demonstrated indicating this is probably a mechanical bowel obstruction. Pneumatosis suspected within one of the proximal small bowel segments in the upper abdomen. No evidence of perforation. Development of multiloculated ascites with prominent collections contiguous with the caudal end of the right lobe of the liver capsule, Morison's pouch and inferior to the right kidney. Other generalized mild ascites noted as well. Internal/external transhepatic biliary drainage catheter in good position. No imaging evidence for catheter malfunction or biliary obstruction. CT noted. likely internal leakage from internal external drain as it was noted to be backing put few days ago hence placed on drainage bag recommend outpatient f/u with oncology and her GI at primary facility to discuss placement of internal metallic larger drain and remove internal / external drain (3) Pancreatic cancer Assessment & Plan: Pancreatic cancer, non-resectable, based on patient's info. Had a Abdominal pelvis CT reviewed 1. Appropriately positioned percutaneous left biliary drain with mild intrahepatic biliary ductal dilatation. 2. Ill- defined pancreatic head/proximal body mass, likely corresponding to stated history of pancreatic neoplasm. Please note evaluation of size and vascular involvement of pancreatic masses is incomplete prior examinations and without multiphasic pancreatic protocol. 3. 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 She has already started rx Jim Gates Jan 25, 2019 14:55
--- NOTE | 2019-01-25 15:00 | NUR ---
NURSE NOTES: Patient is off the unit for NM indium scan test in stable condition.
--- NOTE | 2019-01-25 15:05 | Nephrology Progress Note ---
Assessment/Plan Problem List: (1) Electrolyte abnormality (2) Pancreatic cancer (3) Biliary drain displacement (4) Abdominal pain (5) Malnutrition Assessment HypoKalemia HypoNatremia Abdominal pain. Nausea. Vomiting. UTI. Pancreatic cancer. Biliary drain displacement Malnutrition. Anemia Plan K mag phos supplement as needed, check labs change IV to isotonic solution monitor lytes start PO Folic acid terminal make up operator plan?? Subjective ROS Limited/Unobtainable: No Constitutional: Reports: malaise, weakness Objective Objective Last 24 Hour Vital Signs Date Time Temp Pulse Resp B/P (MAP) Pulse Ox O2 Delivery O2 Flow Rate FiO2 01/25/19 12:00 97.9 87 16 131/76 (94) 97 01/25/19 10:28 Room Air 01/25/19 10:13 96.8 84 18 122/81 (95) 98 01/25/19 09:00 Nasal Cannula 2.0 01/25/19 08:00 97.0 84 18 122/81 (95) 98 01/25/19 04:00 98.1 91 20 112/71 (85) 98 01/25/19 00:00 97.7 90 18 118/78 (91) 97 01/24/19 20:02 Nasal Cannula 2.0 01/24/19 20:00 97.6 85 18 132/77 (95) 98 01/24/19 16:00 97.6 89 18 120/80 (93) 96 Intake and Output 01/24/19 01/25/19 19:00 07:00 Intake Total 530 ml 740 ml Output Total 1200 ml Balance 530 ml -460 ml Intake Oral 480 ml 240 ml IV Total 50 ml 500 ml Other 1200 ml # Voids 2 # Bowel Movements 11 4 Laboratory Tests 01/25/19 05:35: White Blood Count 22.0H, Red Blood Count 4.06L, Hemoglobin 12.9, Hematocrit 38.9 , Mean Corpuscular Volume 96, Mean Corpuscular Hemoglobin 31.8H, Mean Corpuscular Hemoglobin Concent 33.2, Red Cell Distribution Width 14.0, Platelet Count 1057*H, Mean Platelet Volume 5.8L, Neutrophils (%) (Auto) , Lymphocytes (% ) (Auto) , Monocytes (%) (Auto) , Eosinophils (%) (Auto) , Basophils (%) (Auto) , Differential Total Cells Counted 100, Neutrophils % (Manual) 90H, Lymphocytes % (Manual) 5L, Monocytes % (Manual) 5, Eosinophils % (Manual) 0, Basophils % ( Manual) 0, Band Neutrophils 0, Platelet Estimate IncreasedH, Platelet Morphology Normal, Sodium Level 134L, Potassium Level 3.6, Chloride Level 102, Carbon Dioxide Level 21, Anion Gap 11, Blood Urea Nitrogen 14, Creatinine 1.1, Estimat Glomerular Filtration Rate 50.3, Glucose Level 66L, Calcium Level 8.3L, Phosphorus Level 2.1L, Magnesium Level 1.7L, Total Bilirubin 0.9, Aspartate Amino Transf (AST/SGOT) 21, Alanine Aminotransferase (ALT/SGPT) 18, Alkaline Phosphatase 155H, C-Reactive Protein, Quantitative 21.2H, Pro-B-Type Natriuretic Peptide 1424H, Total Protein 6.7, Albumin 2.1L, Globulin 4.6, Albumin/Globulin Ratio 0.5L Height (Feet): 5 Height (Inches): 3.00 Weight (Pounds): 130 General Appearance: no apparent distress Cardiovascular: tachycardia Respiratory/Chest: decreased breath sounds Abdomen: distended Objective no change Kapil Turcios MD Jan 25, 2019 15:05
--- NOTE | 2019-01-25 16:13 | Infectious Diseases Prog Note ---
Assessment/Plan Assessment/Plan Fever 01/13, SP Leukocytosis, fluctuating 01/14 bcx ng tumor related? Ileus related? biloma related? atelectasis? PNA, CAP? -CXR: Patchy consolidation in the right lower lung, concerning for pneumonia. Mild pulmonary vascular congestion. -flu swab negative urine legionella antigen negative Abdominal pain Pancreatitis? lipase negative 01/12 CT abd/p: Appropriately positioned percutaneous left biliary drain with mild intrahepatic biliary ductal dilatation. Ill-defined pancreatic head/ proximal body mass, likely corresponding to stated history of pancreatic neoplasm. Please note evaluation of size and vascular involvement of pancreatic masses is incomplete prior examinations and without multiphasic pancreatic protocol. 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 SMV confluence is not visualized. Gallbladder wall thickening with pericholecystic fluid; in the absence of distended gallbladder, these findings are critical for acute pancreatitis and clinical correlation is recommended. 01/19 US Abd: Transhepatic biliary drain noted. 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 Abnormal liver with area of peripheral hypoechogenicity along the posterior right lobe margin. Suggest further evaluation with contrast CT. Obscured pancreas and aorta due to bowel gas. Trace ascites 01/20 CT A/P: Interval development of moderate small bowel dilatation. Transition to relatively decompressed terminal ileum demonstrated indicating this is probably a mechanical bowel obstruction. Pneumatosis suspected within one of the proximal small bowel segments in the upper abdomen. No evidence of perforation. Development of multiloculated ascites with prominent collections contiguous with the caudal end of the right lobe of the liver capsule, Morison's pouch and inferior to the right kidney. Other generalized mild ascites noted as well. Internal/external transhepatic biliary drainage catheter in good position. No imaging evidence for catheter malfunction or biliary obstruction. Right basilar consolidation versus atelectasis. Correlate for pneumonia. Trace bilateral pleural effusions. Anasarca recently diagnosed pancreatic CA 11/2018 - s/p biliary drain 1 week [employer] at [facility] -sp 1st chemotherapy treatment 01/10/19 tobacco abuse Plan: Ceftriaxone #3, add flagyl #1 Vancomycin #11 01/22 SP Azithromycin #7 / SP Zosyn #8 01/17 DC Tamiflu #2 -f/u cx -Monitor CBC/CMP, temperatures -f/u Bcx x2 -aspiration precautions Thank you for this consultation. Will continue to follow along with you. Subjective Allergies: Coded Allergies: No Known Allergies (Unverified , 01/12/19) Subjective Afebrile. on RA Pt reports abdominal pain Objective Vital Signs Last 24 Hour Vital Signs Date Time Temp Pulse Resp B/P (MAP) Pulse Ox O2 Delivery O2 Flow Rate FiO2 01/25/19 12:00 97.9 87 16 131/76 (94) 97 01/25/19 10:28 Room Air 01/25/19 10:13 96.8 84 18 122/81 (95) 98 01/25/19 09:00 Nasal Cannula 2.0 01/25/19 08:00 97.0 84 18 122/81 (95) 98 01/25/19 04:00 98.1 91 20 112/71 (85) 98 01/25/19 00:00 97.7 90 18 118/78 (91) 97 01/24/19 20:02 Nasal Cannula 2.0 01/24/19 20:00 97.6 85 18 132/77 (95) 98 Height (Feet): 5 Height (Inches): 3.00 Weight (Pounds): 130 Objective Gen: NAD CV: RRR Resp: RRR Abd: hypoactive BS+. Diffusely TTP but worse RUQ. Ext: no edema Neuro: alert. Laboratory Tests Test 01/25/19 05:35 White Blood Count 22.0 K/UL (4.8-10.8) H Red Blood Count 4.06 M/UL (4.20-5.40) L Hemoglobin 12.9 G/DL (12.0-16.0) Hematocrit 38.9 % (37.0-47.0) Mean Corpuscular Volume 96 FL (80-99) Mean Corpuscular Hemoglobin 31.8 PG (27.0-31.0) H Mean Corpuscular Hemoglobin Concent 33.2 G/DL (32.0-36.0) Red Cell Distribution Width 14.0 % (11.6-14.8) Platelet Count 1057 K/UL (150-450) *H Mean Platelet Volume 5.8 FL (6.5-10.1) L Neutrophils (%) (Auto) % (45.0-75.0) Lymphocytes (%) (Auto) % (20.0-45.0) Monocytes (%) (Auto) % (1.0-10.0) Eosinophils (%) (Auto) % (0.0-3.0) Basophils (%) (Auto) % (0.0-2.0) Differential Total Cells Counted 100 Neutrophils % (Manual) 90 % (45-75) H Lymphocytes % (Manual) 5 % (20-45) L Monocytes % (Manual) 5 % (1-10) Eosinophils % (Manual) 0 % (0-3) Basophils % (Manual) 0 % (0-2) Band Neutrophils 0 % (0-8) Platelet Estimate Increased H Platelet Morphology Normal Sodium Level 134 MMOL/L (136-145) L Potassium Level 3.6 MMOL/L (3.5-5.1) Chloride Level 102 MMOL/L (98-107) Carbon Dioxide Level 21 MMOL/L (21-32) Anion Gap 11 mmol/L (5-15) Blood Urea Nitrogen 14 mg/dL (7-18) Creatinine 1.1 MG/DL (0.55-1.30) Estimat Glomerular Filtration Rate 50.3 mL/min (>60) Glucose Level 66 MG/DL (74-106) L Calcium Level 8.3 MG/DL (8.5-10.1) L Phosphorus Level 2.1 MG/DL (2.5-4.9) L Magnesium Level 1.7 MG/DL (1.8-2.4) L Total Bilirubin 0.9 MG/DL (0.2-1.0) Aspartate Amino Transf (AST/SGOT) 21 U/L (15-37) Alanine Aminotransferase (ALT/SGPT) 18 U/L (12-78) Alkaline Phosphatase 155 U/L (46-116) H C-Reactive Protein, Quantitative 21.2 mg/dL (0.00-0.90) H Pro-B-Type Natriuretic Peptide 1424 pg/mL (0-125) H Total Protein 6.7 G/DL (6.4-8.2) Albumin 2.1 G/DL (3.4-5.0) L Globulin 4.6 g/dL Albumin/Globulin Ratio 0.5 (1.0-2.7) L Current Medications Medications (Trade) Dose Ordered Sig/Zuleima Route PRN Reason Start Time Stop Time Status Last Admin Dose Admin Acetaminophen (Tylenol) 650 mg Q8H PRN ORAL Mild Pain/Temp > 100.5 10/23/19 17:30 02/11/19 17:29 01/13/19 17:27 Bisacodyl (Dulcolax) 10 mg BIDPRN PRN RECTAL Constipation 01/16/19 07:45 02/15/19 07:44 01/19/19 18:34 Ceftriaxone Sodium 1 gm/ Dextrose 55 ml @ 110 mls/hr DAILY IVPB 01/23/19 15:00 01/30/19 14:59 01/25/19 09:18 Dextrose (Dextrose 50%) 25 ml Q30M PRN IV Hypoglycemia 01/12/19 13:45 02/11/19 13:44 Dextrose (Dextrose 50%) 50 ml Q30M PRN IV Hypoglycemia 01/12/19 13:45 02/11/19 13:44 Dextrose/Sodium Chloride 1,000 ml @ 50 mls/hr Q20H IV 01/19/19 12:57 02/18/19 12:56 01/25/19 09:43 Docusate Sodium (Colace) 100 mg TWICE A DAY PRN ORAL constipation 01/22/19 10:15 02/14/19 17:59 Enoxaparin Sodium (Lovenox) 60 mg Q12HR@0600,1800 SUBQ 01/20/19 18:00 02/19/19 17:59 01/25/19 05:18 Fentanyl (Duragesic) 1 patch Q72H TDERMAL 01/25/19 12:00 02/01/19 11:59 01/25/19 13:25 Folic Acid (Folate) 5 mg DAILY ORAL 01/17/19 09:45 02/16/19 09:44 01/25/19 09:17 Gabapentin (Neurontin) 300 mg THREE TIMES A DAY ORAL 01/19/19 18:00 02/18/19 17:59 01/25/19 14:21 Hydromorphone HCl (Dilaudid) 4 mg Q4H PRN ORAL severe breakthrough pain 01/24/19 10:12 01/31/19 10:11 01/25/19 14:47 Methylnaltrexone [place] (Relistor) 12 mg QOD SUBQ 01/20/19 09:15 02/19/19 09:14 01/24/19 10:38 Miscellaneous Medication (fentaNYL Destruction) 1 ea Q72H MISC 01/25/19 11:59 02/24/19 11:58 01/25/19 11:59 Naloxone HCl (Narcan) 0.1 mg Q5M PRN IV Sedation scale 3 or 4 01/24/19 09:00 02/23/19 08:54 Ondansetron HCl (Zofran) 4 mg Q6H PRN IVP Nausea & Vomiting 01/12/19 13:45 02/11/19 13:44 01/23/19 15:18 Pantoprazole (Protonix) 40 mg DAILY IVP 01/12/19 16:45 02/11/19 16:44 01/25/19 09:18 Polyethylene Glycol (Miralax) 17 gm BEDTIME PRN ORAL constipation 01/22/19 10:30 02/15/19 20:59 Potassium Phosphate 30 mm/ Sodium Chloride 285 ml @ 47.5 mls/hr ONCE ONCE IV 01/25/19 11:00 01/25/19 16:59 01/25/19 14:22 Simethicone (Mylicon) 80 mg BIDPRN PRN ORAL gas 01/18/19 21:45 02/17/19 21:44 01/21/19 14:38 Vancomycin HCl (Vanco rx to dose) 1 ea DAILY PRN MISC Per rx protocol 01/14/19 20:30 02/13/19 20:29 Vancomycin HCl 750 mg/Sodium Chloride 275 ml @ 183.333 mls/hr Q24H IVPB 01/22/19 11:00 01/27/19 10:59 01/25/19 12:38 Zolpidem Tartrate (Ambien) 5 mg HSPRN PRN ORAL Insomnia 01/20/19 06:15 01/27/19 06:14 01/23/19 21:03 Catalina Kirby MD Jan 25, 2019 16:13
--- NOTE | 2019-01-25 16:27 | NUR ---
Indium WBC Scan complete.
--- NOTE | 2019-01-25 16:35 | NUR ---
NURSE NOTES: Patient came back from the procedure in stable condition.
[2019-01-25] MEDS ORDERED: metroNIDAZOLE 500mg tab ORAL SCH (17:00)
--- NOTE | 2019-01-25 17:07 | Diagnostic Imaging Report ---
Indication: Abdominal pain Technique: In vitro labeling of white blood cells with 520 uCi of indium-111. Cells reinjected, whole body and spot images obtained at 24 hours Comparison: CT scan dated 01/20/2019 Findings: Normal liver, spleen, and bone marrow uptake is demonstrated. There is extensive uptake within what is presumably large and small bowel. There is slightly prominent symmetric pulmonary uptake. There is some abnormal uptake in the upper neck or face just to the left of midline. Impression: Diffusely abnormal bowel uptake. Given findings on recent CT scan, this most likely represents enteritis, most likely infectious. Abnormal uptake in the face or upper neck to the left of midline, exact location uncertain. Consider neck CT for better characterization Mildly prominent pulmonary uptake, significance doubted Dr. Elvis Luke notified at the time of interpretation
--- NOTE | 2019-01-25 19:28 | NUR ---
HAND-OFF: Report given to Minsu.
--- NOTE | 2019-01-25 19:46 | NUR ---
NURSE NOTES: Received report from CAITIE Hernandez. Patient a/a/o x 4, breathing unlabored on room air without distress. IV note on the left hand intact and patent. Biliary drainage noted intact and draining. Bed placed at the lowest with alarm, brake, and siderails up for safety. Call light placed within reach. Will continue to monitor and provide care as ordered.
[2019-01-25 20:00] VITALS: BP 130/79
[2019-01-25] MEDS: Meropenem 1 GM in NS 55 ML IVPB SCH (21:52)
[2019-01-26] VITALS (7 sets, daily range): BP systolic 108–131; BP diastolic 62–90
[2019-01-26] MEDS: D5NS 1,000 ML IV SCH ×2 (05:00→17:23)
[2019-01-26] MEDS: Meropenem 1 GM in NS 55 ML IVPB SCH ×3 (05:49→21:22)
[2019-01-26] MEDS: Enoxaparin 60mg Inj SUBQ SCH ×2 (05:54→17:38)
[2019-01-26] MEDS: HYDROmorphone 4mg tab ORAL PRN ×4 (05:57→21:22)
--- NOTE | 2019-01-26 07:24 | NUR ---
NURSE NOTES: Patient had loose bowel movement x 4 throughout the shift. Cleaned and provided help as needed. Call light attended appropriately.
--- NOTE | 2019-01-26 07:25 | NUR ---
HAND-OFF: Report given to CAITIE Magallanes.
--- NOTE | 2019-01-26 07:26 | NUR ---
NURSE NOTES: PT AXOX4, CALM, RESTING IN BED. PT STATES SHE HAS NAUSEA BUT DENIES VOMITING. BILIARY DRAIN DRAINING YELLOW/BROWN FLUIDS BY GRAVITY. BED IN LOWEST POSITION WITH BEDSIDE RAILS X2 RAISED. IN HIGH-RUIZ'S POSITION. CALL LIGHT WITHIN REACH. WILL CONTINUE TO MONITOR.
[2019-01-26] MEDS: Pantoprazole Inj IVP SCH (08:08)
[2019-01-26 08:12] LABS: HEMATOCRIT 39.6 % (37.0-47.0); HEMOGLOBIN 13.2 G/DL (12.0-16.0); MEAN CORPUSCULAR VOLUME 95 FL (80-99); PLATELET COUNT 997 K/UL (150-450); RED BLOOD COUNT 4.16 M/UL (4.20-5.40); RED CELL DISTRIBUTION WIDTH 13.9 % (11.6-14.8); WHITE BLOOD COUNT 20.7 K/UL (4.8-10.8)
[2019-01-26 08:36] LABS: ANION GAP 12 mmol/L (5-15); BLOOD UREA NITROGEN 12 mg/dL (7-18); CALCIUM 8.1 MG/DL (8.5-10.1); CARBON DIOXIDE 19 MMOL/L (21-32); CHLORIDE 106 MMOL/L (98-107); POTASSIUM 3.5 MMOL/L (3.5-5.1); SODIUM 137 MMOL/L (136-145)
--- NOTE | 2019-01-26 08:56 | General Progress Note ---
Assessment/Plan Assessment/Plan: (1) Intractable abdominal pain (2) Pancreatic cancer We will continue the Neurontin, Dilaudid and Fentanyl patch D/w Dr. Gonzales and he concurred. Subjective Date patient seen: Jan 26, 2019 Time patient seen: 08:15 - am Allergies: Coded Allergies: No Known Allergies (Unverified , 01/12/19) Subjective REVIEW OF SYSTEMS: Denies rash, fever, chills, sweating, dizziness, drowsiness, blurred vision, sore throat, change in weight. No shortness of breath or chest pain. No bowel or bladder incontinence. She is complaining of abdominal pain. SUBJECTIVE: Patient shows no signs of pain or distress. Pain has been at a moderate level and tolerated on the Neurontin. She has the Fentanyl patch applied and has gotten 5 doses of Dilaudid in the last 24hrs. C/o Diarrhea d/w pharmacist and will change Relistor to once a week, advised nurse to inform GI. Objective Last 24 Hour Vital Signs Date Time Temp Pulse Resp B/P (MAP) Pulse Ox O2 Delivery O2 Flow Rate FiO2 01/26/19 07:43 96.4 80 12 121/73 (89) 99 01/26/19 04:00 98.0 82 16 126/77 (93) 96 01/26/19 00:00 97.9 81 17 122/72 (89) 97 01/25/19 21:00 Room Air 01/25/19 20:00 97.9 85 17 130/79 (96) 96 01/25/19 12:00 97.9 87 16 131/76 (94) 97 01/25/19 10:28 Room Air 01/25/19 10:13 96.8 84 18 122/81 (95) 98 01/25/19 09:00 Nasal Cannula 2.0 Intake and Output 01/25/19 01/26/19 19:00 07:00 Intake Total 1920.000 ml 1500.0 ml Output Total 1000 ml 500 ml Balance 920.000 ml 1000.0 ml Intake Oral 1200 ml 1000 ml IV Total 720.000 ml 500.0 ml Other 1000 ml 500 ml # Voids 6 3 # Bowel Movements 10 5 Laboratory Tests 01/26/19 07:35: White Blood Count 20.7H, Red Blood Count 4.16L, Hemoglobin 13.2, Hematocrit 39.6 , Mean Corpuscular Volume 95, Mean Corpuscular Hemoglobin 31.6H, Mean Corpuscular Hemoglobin Concent 33.3, Red Cell Distribution Width 13.9, Platelet Count 997H, Mean Platelet Volume 6.1L, Neutrophils (%) (Auto) , Lymphocytes (%) (Auto) , Monocytes (%) (Auto) , Eosinophils (%) (Auto) , Basophils (%) (Auto) , Neutrophils % (Manual) [Pending], Lymphocytes % (Manual) [Pending], Platelet Estimate [Pending], Platelet Morphology [Pending], Sodium Level 137, Potassium Level 3.5, Chloride Level 106, Carbon Dioxide Level 19L, Anion Gap 12, Blood Urea Nitrogen 12, Creatinine 1.0, Estimat Glomerular Filtration Rate 56.2, Glucose Level 83, Calcium Level 8.1L Height (Feet): 5 Height (Inches): 3.00 Weight (Pounds): 164 Objective GENERAL: Alert, awake, and oriented. LUNGS: Clear bilaterally. HEART: S1, S2 regular. ABDOMEN: Tenderness to palpation with biliary stent noted. BACK: Range of motion is decreased in flexion, extension. EXTREMITIES: No cyanosis. No clubbing. No edema. NEURO: No changes. Doug Reid Jan 26, 2019 08:56
--- NOTE | 2019-01-26 09:45 | General Progress Note ---
Assessment/Plan Problem List: (1) SOB (shortness of breath) ICD Codes: R06.02 - Shortness of breath SNOMED: 856256671 (2) Nausea & vomiting ICD Codes: R11.2 - Nausea with vomiting, unspecified SNOMED: 75032495 (3) Malnutrition ICD Codes: E46 - Unspecified protein-calorie malnutrition SNOMED: 92201729 (4) UTI (urinary tract infection) ICD Codes: N39.0 - Urinary tract infection, site not specified SNOMED: 67667651 (5) Abdominal pain ICD Codes: R10.9 - Unspecified abdominal pain SNOMED: 15416210 (6) Biliary drain displacement ICD Codes: T85.520A - Displacement of bile duct prosthesis, initial encounter SNOMED: 850528932 (7) Pancreatic cancer ICD Codes: C25.9 - Malignant neoplasm of pancreas, unspecified SNOMED: 643636649 Status: unchanged Assessment/Plan: pt diet pain control abx cbc bmp am dc plan snf Subjective Constitutional: Reports: weakness Allergies: Coded Allergies: No Known Allergies (Unverified , 01/12/19) All Systems: reviewed and negative except above Subjective o2nc sl nausea abd pain Objective Last 24 Hour Vital Signs Date Time Temp Pulse Resp B/P (MAP) Pulse Ox O2 Delivery O2 Flow Rate FiO2 01/26/19 07:43 96.4 80 12 121/73 (89) 99 01/26/19 04:00 98.0 82 16 126/77 (93) 96 01/26/19 00:00 97.9 81 17 122/72 (89) 97 01/25/19 21:00 Room Air 01/25/19 20:00 97.9 85 17 130/79 (96) 96 01/25/19 12:00 97.9 87 16 131/76 (94) 97 01/25/19 10:28 Room Air 01/25/19 10:13 96.8 84 18 122/81 (95) 98 Intake and Output 01/25/19 01/26/19 19:00 07:00 Intake Total 1920.000 ml 1500.0 ml Output Total 1000 ml 500 ml Balance 920.000 ml 1000.0 ml Intake Oral 1200 ml 1000 ml IV Total 720.000 ml 500.0 ml Other 1000 ml 500 ml # Voids 6 3 # Bowel Movements 10 5 Laboratory Tests 01/26/19 07:35: White Blood Count 20.7H, Red Blood Count 4.16L, Hemoglobin 13.2, Hematocrit 39.6 , Mean Corpuscular Volume 95, Mean Corpuscular Hemoglobin 31.6H, Mean Corpuscular Hemoglobin Concent 33.3, Red Cell Distribution Width 13.9, Platelet Count 997H, Mean Platelet Volume 6.1L, Neutrophils (%) (Auto) , Lymphocytes (%) (Auto) , Monocytes (%) (Auto) , Eosinophils (%) (Auto) , Basophils (%) (Auto) , Neutrophils % (Manual) [Pending], Lymphocytes % (Manual) [Pending], Platelet Estimate [Pending], Platelet Morphology [Pending], Sodium Level 137, Potassium Level 3.5, Chloride Level 106, Carbon Dioxide Level 19L, Anion Gap 12, Blood Urea Nitrogen 12, Creatinine 1.0, Estimat Glomerular Filtration Rate 56.2, Glucose Level 83, Calcium Level 8.1L Height (Feet): 5 Height (Inches): 3.00 Weight (Pounds): 164 General Appearance: lethargic EENT: normal ENT inspection Neck: normal alignment Cardiovascular: normal peripheral pulses, normal rate, regular rhythm Respiratory/Chest: chest wall non-tender, lungs clear, normal breath sounds Abdomen: normal bowel sounds, non tender, soft Extremities: normal inspection Edema: no edema noted Arm (L), no edema noted Arm (R), no edema noted Leg (L), no edema noted Leg (R), no edema noted Pedal (L), no edema noted Pedal (R), no edema noted Generalized Neurologic: motor weakness Skin: normal pigmentation, warm/dry Elvis Luke DO Jan 26, 2019 09:45
--- NOTE | 2019-01-26 11:43 | Hematology/Onc Progress Note ---
Assessment/Plan Assessment/Plan Assessment/Plan # Pancreatic cancer, non-resectable, based on patient's info. Had a Abdominal pelvis CT reviewed 1. Appropriately positioned percutaneous left biliary drain with mild intrahepatic biliary ductal dilatation. 2. Ill-defined pancreatic head/proximal body mass, likely corresponding to stated history of pancreatic neoplasm. Please note evaluation of size and vascular involvement of pancreatic masses is incomplete prior examinations and without multiphasic pancreatic protocol. 3. 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 She has already started rx. --> gi recs noted No plans for GI procedures at this time --> surgical recommendations, no interventions at this time --> likely to continue chemo and XRT as needed with Dr. Elias Bernal (has received one chemo session) --> CA 19.9 688, in general with this presentation, poor prognosis --> if doesn't get chemo soon, likely to deteriorate, may be hospice candidate # Portal vein thrombosis with abd pain (MAY BE due to tumor encasement) --> may be contributor for abdominal pain --> appears to be chronic portal vein thrombosis on imaging --> minimize pain meds as much as possible --> started on lovenox, okay to transition to noac once discharged # Thrombocytosis, is secondary to underlying process --> less likely myeloproliferative --> smear has been reviewed --> trend 700-->800-->920-->1040k->997 --> consider asa if worsens, doesn't need leukapheresis # Anemia of myelosuppressive chemo --> okay to continue on chemo at this time --> epo as stimulating factor if drops --> dw patient risks of dvt/VTE # Leukocytosis is likely due to pna --> agree to trend, improved --> abx as per id --> wbc trend 22-->20-->18k-->34k-->22-->19k-->21k-->20 # Transaminitis --> Trend LFTs --> per gi --> advance diet as tolerated # Dvt ppx LOVENOX 1mg/sq bid Appreciate consultation and dw RN Subjective Constitutional: Denies: no symptoms, chills, fever, malaise, weakness, other HEENT: Denies: no symptoms, eye pain, blurred vision, tearing, double vision, ear pain, ear discharge, nose pain, nose congestion, throat pain, throat swelling, mouth pain, mouth swelling, other Cardiovascular: Denies: no symptoms, chest pain, edema, irregular heart rate, lightheadedness, palpitations, syncope, other Respiratory: Denies: no symptoms, cough, shortness of breath, SOB with excertion, SOB at rest, sputum, wheezing, other Gastrointestinal/Abdominal: Denies: no symptoms, abdomen distended, abdominal pain, black stools, tarry stools, blood in stool, constipated, diarrhea, difficulty swallowing, nausea, poor appetite, poor fluid intake, rectal bleeding , vomiting, other Genitourinary: Denies: no symptoms, burning, discharge, frequency, flank pain, hematuria, incontinence, pain, urgency, other Neurologic/Psychiatric: Denies: no symptoms, anxiety, depressed, emotional problems, headache, numbness, paresthesia, pre-existing deficit, seizure, tingling, tremors, weakness, other Endocrine: Denies: no symptoms, excessive sweating, flushing, intolerance to cold, intolerance to heat, increased hunger, increased thirst, increased urine, unexplained weight gain, unexplained weight loss, other Allergies: Coded Allergies: No Known Allergies (Unverified , 01/12/19) Subjective 01/13: no events to report, no f/c, no night sweats 01/14: no bleeding, on meds, ivf 01/15: no major changes, dw patient, some minor abd pain 01/18: no major events, drain is to gravity, seen by surg, no bleeidng 01/19: awake, alert, getting dressed this am, labs noted 01/20: no events, no bleeding reported, no major changes, no fc 01/21: appears on ct scan that she has a chronic portal vein thrombosis, reviewed results with rad 01/23: to be transferred to tele for sob, and also okay with snf placement 01/24: no major changes, no bleeding reported, no f/c 01/25: no events, no complaints in the am, sleeping, no chills 01/26: no bleeding noted, no f/c, no night sweats Objective Objective Current Medications Medications (Trade) Dose Ordered Sig/Zuleima Route PRN Reason Start Time Stop Time Status Last Admin Dose Admin Acetaminophen (Tylenol) 650 mg Q8H PRN ORAL Mild Pain/Temp > 100.5 01/12/19 17:30 02/11/19 17:29 01/13/19 17:27 Bisacodyl (Dulcolax) 10 mg BIDPRN PRN RECTAL Constipation 01/16/19 07:45 02/15/19 07:44 01/19/19 18:34 Dextrose (Dextrose 50%) 25 ml Q30M PRN IV Hypoglycemia 01/12/19 13:45 02/11/19 13:44 Dextrose (Dextrose 50%) 50 ml Q30M PRN IV Hypoglycemia 01/12/19 13:45 02/11/19 13:44 Dextrose/Sodium Chloride 1,000 ml @ 50 mls/hr Q20H IV 01/19/19 12:57 02/18/19 12:56 01/26/19 05:00 Docusate Sodium (Colace) 100 mg TWICE A DAY PRN ORAL constipation 01/22/19 10:15 02/14/19 17:59 Enoxaparin Sodium (Lovenox) 60 mg Q12HR@0600,1800 SUBQ 01/20/19 18:00 02/19/19 17:59 01/26/19 05:54 Fentanyl (Duragesic) 1 patch Q72H TDERMAL 01/25/19 12:00 02/01/19 11:59 01/25/19 13:25 Folic Acid (Folate) 5 mg DAILY ORAL 01/17/19 09:45 02/16/19 09:44 01/26/19 08:08 Gabapentin (Neurontin) 300 mg THREE TIMES A DAY ORAL 01/19/19 18:00 02/18/19 17:59 01/26/19 08:06 Hydromorphone HCl (Dilaudid) 4 mg Q4H PRN ORAL severe breakthrough pain 01/24/19 10:12 01/31/19 10:11 01/26/19 05:57 Meropenem 1 gm/ Sodium Chloride 55 ml @ 110 mls/hr Q8HR IVPB 01/25/19 22:00 01/30/19 21:59 01/26/19 05:49 Methylnaltrexone [place] (Relistor) 12 mg ONCE A WEEK SUBQ 02/01/19 09:00 03/03/19 08:59 Miscellaneous Medication (fentaNYL Destruction) 1 ea Q72H MISC 01/25/19 11:59 02/24/19 11:58 01/25/19 11:59 Naloxone HCl (Narcan) 0.1 mg Q5M PRN IV Sedation scale 3 or 4 01/24/19 09:00 02/23/19 08:54 Ondansetron HCl (Zofran) 4 mg Q6H PRN IVP Nausea & Vomiting 01/12/19 13:45 02/11/19 13:44 01/26/19 08:08 Pantoprazole (Protonix) 40 mg DAILY IVP 01/12/19 16:45 02/11/19 16:44 01/26/19 08:08 Polyethylene Glycol (Miralax) 17 gm BEDTIME PRN ORAL constipation 01/22/19 10:30 02/15/19 20:59 Simethicone (Mylicon) 80 mg BIDPRN PRN ORAL gas 01/18/19 21:45 02/17/19 21:44 01/21/19 14:38 Zolpidem Tartrate (Ambien) 5 mg HSPRN PRN ORAL Insomnia 01/20/19 06:15 01/27/19 06:14 01/23/19 21:03 Last 24 Hour Vital Signs Date Time Temp Pulse Resp B/P (MAP) Pulse Ox O2 Delivery O2 Flow Rate FiO2 01/26/19 09:50 Room Air 01/26/19 09:00 Nasal Cannula 2.0 01/26/19 07:43 96.4 80 12 121/73 (89) 99 01/26/19 04:00 98.0 82 16 126/77 (93) 96 01/26/19 00:00 97.9 81 17 122/72 (89) 97 01/25/19 21:00 Room Air 01/25/19 20:00 97.9 85 17 130/79 (96) 96 01/25/19 12:00 97.9 87 16 131/76 (94) 97 01/25/19 10:28 Room Air 01/25/19 10:13 96.8 84 18 122/81 (95) 98 01/25/19 09:00 Nasal Cannula 2.0 01/25/19 08:00 97.0 84 18 122/81 (95) 98 01/25/19 04:00 98.1 91 20 112/71 (85) 98 01/25/19 00:00 97.7 90 18 118/78 (91) 97 01/24/19 20:02 Nasal Cannula 2.0 01/24/19 20:00 97.6 85 18 132/77 (95) 98 01/24/19 16:00 97.6 89 18 120/80 (93) 96 01/24/19 11:54 97.5 95 19 123/83 (96) 97 Intake and Output 01/25/19 01/26/19 19:00 07:00 Intake Total 1920.000 ml 1500.0 ml Output Total 1000 ml 500 ml Balance 920.000 ml 1000.0 ml Intake Oral 1200 ml 1000 ml IV Total 720.000 ml 500.0 ml Other 1000 ml 500 ml # Voids 6 3 # Bowel Movements 10 5 Labs Test 01/24/19 06:30 01/24/19 10:15 01/25/19 05:35 01/26/19 07:35 White Blood Count 21.2 K/UL (4.8-10.8) 22.0 K/UL (4.8-10.8) 20.7 K/UL (4.8-10.8) Red Blood Count 3.87 M/UL (4.20-5.40) 4.06 M/UL (4.20-5.40) 4.16 M/UL (4.20-5.40) Hemoglobin 12.4 G/DL (12.0-16.0) 12.9 G/DL (12.0-16.0) 13.2 G/DL (12.0-16.0) Hematocrit 36.2 % (37.0-47.0) 38.9 % (37.0-47.0) 39.6 % (37.0-47.0) Mean Corpuscular Volume 93 FL (80-99) 96 FL (80-99) 95 FL (80-99) Mean Corpuscular Hemoglobin 32.0 PG (27.0-31.0) 31.8 PG (27.0-31.0) 31.6 PG (27.0-31.0) Mean Corpuscular Hemoglobin Concent 34.3 G/DL (32.0-36.0) 33.2 G/DL (32.0-36.0) 33.3 G/DL (32.0-36.0) Red Cell Distribution Width 13.7 % (11.6-14.8) 14.0 % (11.6-14.8) 13.9 % (11.6-14.8) Platelet Count 1040 K/UL (150-450) 1057 K/UL (150-450) 997 K/UL (150-450) Mean Platelet Volume 6.0 FL (6.5-10.1) 5.8 FL (6.5-10.1) 6.1 FL (6.5-10.1) Neutrophils (%) (Auto) % (45.0-75.0) % (45.0-75.0) % (45.0-75.0) Lymphocytes (%) (Auto) % (20.0-45.0) % (20.0-45.0) % (20.0-45.0) Monocytes (%) (Auto) % (1.0-10.0) % (1.0-10.0) % (1.0-10.0) Eosinophils (%) (Auto) % (0.0-3.0) % (0.0-3.0) % (0.0-3.0) Basophils (%) (Auto) % (0.0-2.0) % (0.0-2.0) % (0.0-2.0) Differential Total Cells Counted 100 100 100 Neutrophils % (Manual) 91 % (45-75) 90 % (45-75) 86 % (45-75) Lymphocytes % (Manual) 4 % (20-45) 5 % (20-45) 6 % (20-45) Monocytes % (Manual) 4 % (1-10) 5 % (1-10) 8 % (1-10) Eosinophils % (Manual) 1 % (0-3) 0 % (0-3) 0 % (0-3) Basophils % (Manual) 0 % (0-2) 0 % (0-2) 0 % (0-2) Band Neutrophils 0 % (0-8) 0 % (0-8) 0 % (0-8) Platelet Estimate Increased Increased Increased Platelet Morphology Normal Normal Normal Sodium Level 133 MMOL/L (136-145) 134 MMOL/L (136-145) 137 MMOL/L (136-145) Potassium Level 4.7 MMOL/L (3.5-5.1) 3.6 MMOL/L (3.5-5.1) 3.5 MMOL/L (3.5-5.1) Chloride Level 103 MMOL/L (98-107) 102 MMOL/L (98-107) 106 MMOL/L (98-107) Carbon Dioxide Level 20 MMOL/L (21-32) 21 MMOL/L (21-32) 19 MMOL/L (21-32) Anion Gap 10 mmol/L (5-15) 11 mmol/L (5-15) 12 mmol/L (5-15) Blood Urea Nitrogen 16 mg/dL (7-18) 14 mg/dL (7-18) 12 mg/dL (7-18) Creatinine 1.3 MG/DL (0.55-1.30) 1.1 MG/DL (0.55-1.30) 1.0 MG/DL (0.55-1.30) Estimat Glomerular Filtration Rate 41.5 mL/min (>60) 50.3 mL/min (>60) 56.2 mL/min (>60) Glucose Level 76 MG/DL (74-106) 66 MG/DL (74-106) 83 MG/DL (74-106) Calcium Level 8.4 MG/DL (8.5-10.1) 8.3 MG/DL (8.5-10.1) 8.1 MG/DL (8.5-10.1) Vancomycin Level Trough 17.7 ug/mL (5.0-12.0) Phosphorus Level 2.1 MG/DL (2.5-4.9) Magnesium Level 1.7 MG/DL (1.8-2.4) Total Bilirubin 0.9 MG/DL (0.2-1.0) Aspartate Amino Transf (AST/SGOT) 21 U/L (15-37) Alanine Aminotransferase (ALT/SGPT) 18 U/L (12-78) Alkaline Phosphatase 155 U/L (46-116) C-Reactive Protein, Quantitative 21.2 mg/dL (0.00-0.90) Pro-B-Type Natriuretic Peptide 1424 pg/mL (0-125) Total Protein 6.7 G/DL (6.4-8.2) Albumin 2.1 G/DL (3.4-5.0) Globulin 4.6 g/dL Albumin/Globulin Ratio 0.5 (1.0-2.7) Height (Feet): 5 Height (Inches): 3.00 Weight (Pounds): 164 Roberto Davidson MD Jan 26, 2019 11:43
--- NOTE | 2019-01-26 12:28 | Nephrology Progress Note ---
Assessment/Plan Problem List: (1) Electrolyte abnormality (2) Pancreatic cancer (3) Biliary drain displacement (4) Abdominal pain (5) Malnutrition Assessment HypoKalemia HypoNatremia Abdominal pain. Nausea. Vomiting. UTI. Pancreatic cancer. Biliary drain displacement Malnutrition. 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 Subjective ROS Limited/Unobtainable: No Constitutional: Reports: malaise Objective Objective Last 24 Hour Vital Signs Date Time Temp Pulse Resp B/P (MAP) Pulse Ox O2 Delivery O2 Flow Rate FiO2 01/26/19 11:50 97.9 83 12 131/90 (104) 100 01/26/19 09:50 Room Air 01/26/19 09:00 Nasal Cannula 2.0 01/26/19 07:43 96.4 80 12 121/73 (89) 99 01/26/19 04:00 98.0 82 16 126/77 (93) 96 01/26/19 00:00 97.9 81 17 122/72 (89) 97 01/25/19 21:00 Room Air 01/25/19 20:00 97.9 85 17 130/79 (96) 96 Intake and Output 01/25/19 01/26/19 19:00 07:00 Intake Total 1920.000 ml 1500.0 ml Output Total 1000 ml 500 ml Balance 920.000 ml 1000.0 ml Intake Oral 1200 ml 1000 ml IV Total 720.000 ml 500.0 ml Other 1000 ml 500 ml # Voids 6 3 # Bowel Movements 10 5 Laboratory Tests 01/26/19 07:35: White Blood Count 20.7H, Red Blood Count 4.16L, Hemoglobin 13.2, Hematocrit 39.6 , Mean Corpuscular Volume 95, Mean Corpuscular Hemoglobin 31.6H, Mean Corpuscular Hemoglobin Concent 33.3, Red Cell Distribution Width 13.9, Platelet Count 997H, Mean Platelet Volume 6.1L, Neutrophils (%) (Auto) , Lymphocytes (%) (Auto) , Monocytes (%) (Auto) , Eosinophils (%) (Auto) , Basophils (%) (Auto) , Differential Total Cells Counted 100, Neutrophils % (Manual) 86H, Lymphocytes % (Manual) 6L, Monocytes % (Manual) 8, Eosinophils % (Manual) 0, Basophils % ( Manual) 0, Band Neutrophils 0, Platelet Estimate IncreasedH, Platelet Morphology Normal, Sodium Level 137, Potassium Level 3.5, Chloride Level 106, Carbon Dioxide Level 19L, Anion Gap 12, Blood Urea Nitrogen 12, Creatinine 1.0, Estimat Glomerular Filtration Rate 56.2, Glucose Level 83, Calcium Level 8.1L Height (Feet): 5 Height (Inches): 3.00 Weight (Pounds): 164 General Appearance: no apparent distress Abdomen: distended Objective no change Kapil Turcios MD Jan 26, 2019 12:28
--- NOTE | 2019-01-26 12:56 | GI Progress Note ---
Assessment/Plan Problems: (1) Pancreatic cancer ICD Codes: C25.9 - Malignant neoplasm of pancreas, unspecified SNOMED: 088442203 (2) Biliary drain displacement ICD Codes: T85.520A - Displacement of bile duct prosthesis, initial encounter SNOMED: 810412099 (3) Abdominal pain ICD Codes: R10.9 - Unspecified abdominal pain SNOMED: 65724242 Status: unchanged Status Narrative Discussed with Dr. Rocha. Assessment/Plan Abdominal pelvis CT reviewed 1. Appropriately positioned percutaneous left biliary drain with mild intrahepatic biliary ductal dilatation. 2. Ill-defined pancreatic head/proximal body mass, likely corresponding to stated history of pancreatic neoplasm. Please note evaluation of size and vascular involvement of pancreatic masses is incomplete prior examinations and without multiphasic pancreatic protocol. 3. 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 SMV confluence is not visualized. 4. Color wall thickening with pericholecystic fluid; in the absence of distended gallbladder, these findings are critical for acute pancreatitis and clinical correlation is recommended. No plans for GI procedures at this time. Symptomatic treatment Pain management surgical recommendations, biliary drain placed to gravity with high output\ bowel regime, colace + miralax. Relistor q weekly. Follow-up pain management recommendations ppi Trend LFTs advance diet as tolerated We will follow-up The patient was seen and examined at bedside and all new and available data was reviewed in the patients chart. I agree with the above findings, impression and plan. (Patient seen earlier today. Signature stamp does not reflect patient encounter time.). - Indra Rocha MD Subjective Subjective Patient still complains of abdominal pain Objective Last 24 Hour Vital Signs Date Time Temp Pulse Resp B/P (MAP) Pulse Ox O2 Delivery O2 Flow Rate FiO2 01/26/19 11:50 97.9 83 12 131/90 (104) 100 01/26/19 09:50 Room Air 01/26/19 09:00 Nasal Cannula 2.0 01/26/19 07:43 96.4 80 12 121/73 (89) 99 01/26/19 04:00 98.0 82 16 126/77 (93) 96 01/26/19 00:00 97.9 81 17 122/72 (89) 97 01/25/19 21:00 Room Air 01/25/19 20:00 97.9 85 17 130/79 (96) 96 Intake and Output 01/25/19 01/26/19 19:00 07:00 Intake Total 1920.000 ml 1500.0 ml Output Total 1000 ml 500 ml Balance 920.000 ml 1000.0 ml Intake Oral 1200 ml 1000 ml IV Total 720.000 ml 500.0 ml Other 1000 ml 500 ml # Voids 6 3 # Bowel Movements 10 5 Laboratory Tests Test 01/26/19 07:35 White Blood Count 20.7 K/UL (4.8-10.8) H Red Blood Count 4.16 M/UL (4.20-5.40) L Hemoglobin 13.2 G/DL (12.0-16.0) Hematocrit 39.6 % (37.0-47.0) Mean Corpuscular Volume 95 FL (80-99) Mean Corpuscular Hemoglobin 31.6 PG (27.0-31.0) H Mean Corpuscular Hemoglobin Concent 33.3 G/DL (32.0-36.0) Red Cell Distribution Width 13.9 % (11.6-14.8) Platelet Count 997 K/UL (150-450) H Mean Platelet Volume 6.1 FL (6.5-10.1) L Neutrophils (%) (Auto) % (45.0-75.0) Lymphocytes (%) (Auto) % (20.0-45.0) Monocytes (%) (Auto) % (1.0-10.0) Eosinophils (%) (Auto) % (0.0-3.0) Basophils (%) (Auto) % (0.0-2.0) Differential Total Cells Counted 100 Neutrophils % (Manual) 86 % (45-75) H Lymphocytes % (Manual) 6 % (20-45) L Monocytes % (Manual) 8 % (1-10) Eosinophils % (Manual) 0 % (0-3) Basophils % (Manual) 0 % (0-2) Band Neutrophils 0 % (0-8) Platelet Estimate Increased H Platelet Morphology Normal Sodium Level 137 MMOL/L (136-145) Potassium Level 3.5 MMOL/L (3.5-5.1) Chloride Level 106 MMOL/L (98-107) Carbon Dioxide Level 19 MMOL/L (21-32) L Anion Gap 12 mmol/L (5-15) Blood Urea Nitrogen 12 mg/dL (7-18) Creatinine 1.0 MG/DL (0.55-1.30) Estimat Glomerular Filtration Rate 56.2 mL/min (>60) Glucose Level 83 MG/DL (74-106) Calcium Level 8.1 MG/DL (8.5-10.1) L Height (Feet): 5 Height (Inches): 3.00 Weight (Pounds): 164 General Appearance: WD/WN, no apparent distress, alert Cardiovascular: normal rate Respiratory/Chest: normal breath sounds, no respiratory distress Abdominal Exam: normal bowel sounds, non tender, soft Extremities: normal range of motion, non-tender Jeff Rueda NP Jan 26, 2019 12:56
--- NOTE | 2019-01-26 13:57 | NUR ---
*-* INSURANCE *-* UPDATED CLINICALS HAVE BEEN FAXED TO: REF#[id number] - FOR TRACKING PURPOSES THIS IS SHARED RISK NO CM ASSIGNED PH#[phone] FAX#[phone] REVIEWS/CLINICALS & [facility] TRACKING#[id number] CM: TAMMY #[phone] EXT [id number]
--- NOTE | 2019-01-26 14:51 | NUR ---
RD ASSESSMENT & RECOMMENDATIONS SEE CARE ACTIVITY FOR COMPLETE ASSESSMENT DAILY ESTIMATED NEEDS: Needs based on CA/ 59kg 25-30 kcals/kg 0175-7722 total kcals 1-1.5 g protein/kg 59-89 g total protein 25-30 mL/kg 9832-0478 total fluid mLs NUTRITION DIAGNOSIS: Increased kcal/prot needs R/T catabolic dx as evidenced by dx of pancreatitis CA, s/p recent chemo, CA 19-9 level 688 CURRENT DIET:REGULAR PO DIET RECOMMENDATIONS: Liberalized REGULAR diet as tolerated, rec small frequent meals ADDITIONAL RECOMMENDATIONS: * Standing weight for accurate CBW (pt reports standing [id number] on 01/26) VS bedscale wt of 73kg (160lbs) * Ensure Enlive w/ breakfast and dinner as tolerated (350kcal/20g prot each bottle) * Rec small frequent meals -> add snacks TID in b/w meals * Add probiotics: + diarrhea, on abx * Monitor lytes and hydration status closely w/ diarrhea -> replete lytes prn (low mag, phos)
--- NOTE | 2019-01-26 15:23 | NUR ---
NURSE NOTES: PER HAETH DAVIS (ORTIZ), INFORM GI CONSULT CHANGE OF RELISTOR TO ONCE A WEEK. KISHORE (GASOLINE ATTENDANT) MADE AWARE WITH NO NEW ORDERS.
--- NOTE | 2019-01-26 15:34 | NUR ---
NURSE NOTES: DR LINDSEY MADE AWARE OF BLE SWELLING, WITH NEW ORDER FOR VENOUS DUPLEX.
--- NOTE | 2019-01-26 15:37 | Infectious Diseases Prog Note ---
Assessment/Plan Assessment/Plan Fever 01/13, SP Leukocytosis, fluctuating 01/14 bcx ng tumor related? Ileus related? biloma related? atelectasis? PNA, CAP? -CXR: Patchy consolidation in the right lower lung, concerning for pneumonia. Mild pulmonary vascular congestion. -flu swab negative urine legionella antigen negative Abdominal pain Pancreatitis? lipase negative 01/12 CT abd/p: Appropriately positioned percutaneous left biliary drain with mild intrahepatic biliary ductal dilatation. Ill-defined pancreatic head/ proximal body mass, likely corresponding to stated history of pancreatic neoplasm. Please note evaluation of size and vascular involvement of pancreatic masses is incomplete prior examinations and without multiphasic pancreatic protocol. 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 SMV confluence is not visualized. Gallbladder wall thickening with pericholecystic fluid; in the absence of distended gallbladder, these findings are critical for acute pancreatitis and clinical correlation is recommended. 01/19 US Abd: Transhepatic biliary drain noted. 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 Abnormal liver with area of peripheral hypoechogenicity along the posterior right lobe margin. Suggest further evaluation with contrast CT. Obscured pancreas and aorta due to bowel gas. Trace ascites 01/20 CT A/P: Interval development of moderate small bowel dilatation. Transition to relatively decompressed terminal ileum demonstrated indicating this is probably a mechanical bowel obstruction. Pneumatosis suspected within one of the proximal small bowel segments in the upper abdomen. No evidence of perforation. Development of multiloculated ascites with prominent collections contiguous with the caudal end of the right lobe of the liver capsule, Morison's pouch and inferior to the right kidney. Other generalized mild ascites noted as well. Internal/external transhepatic biliary drainage catheter in good position. No imaging evidence for catheter malfunction or biliary obstruction. Right basilar consolidation versus atelectasis. Correlate for pneumonia. Trace bilateral pleural effusions. Anasarca recently diagnosed pancreatic CA 11/2018 - s/p biliary drain 1 week [employer] [facility] at [facility] -sp 1st chemotherapy treatment 01/10/19 tobacco abuse Plan: Meropenem #2/7 11/ SP Ceftriaxone #3, flagyl #1, vancomycin #11 01/22 SP Azithromycin #7 11/3 SP Zosyn #8 01/17 DC Tamiflu #2 -f/u cx -Monitor CBC/CMP, temperatures -f/u Bcx x2 -aspiration precautions Thank you for this consultation. Will continue to follow along with you. Subjective Allergies: Coded Allergies: No Known Allergies (Unverified , 01/12/19) Subjective Afebrile. Pt feels better today. Sitting up and interacting with daughter. WBC better No neck pain or headache. No cough or SOB. Objective Vital Signs Last 24 Hour Vital Signs Date Time Temp Pulse Resp B/P (MAP) Pulse Ox O2 Delivery O2 Flow Rate FiO2 01/26/19 11:50 97.9 83 12 131/90 (104) 100 01/26/19 09:50 Room Air 01/26/19 09:00 Nasal Cannula 2.0 01/26/19 07:43 96.4 80 12 121/73 (89) 99 01/26/19 04:00 98.0 82 16 126/77 (93) 96 01/26/19 00:00 97.9 81 17 122/72 (89) 97 01/25/19 21:00 Room Air 01/25/19 20:00 97.9 85 17 130/79 (96) 96 Height (Feet): 5 Height (Inches): 3.00 Weight (Pounds): 164 Objective Gen: NAD CV: RRR Resp: RRR Abd: hypoactive BS+. Diffusely TTP but worse RUQ. Ext: no edema Neuro: alert. Laboratory Tests Test 01/26/19 07:35 White Blood Count 20.7 K/UL (4.8-10.8) H Red Blood Count 4.16 M/UL (4.20-5.40) L Hemoglobin 13.2 G/DL (12.0-16.0) Hematocrit 39.6 % (37.0-47.0) Mean Corpuscular Volume 95 FL (80-99) Mean Corpuscular Hemoglobin 31.6 PG (27.0-31.0) H Mean Corpuscular Hemoglobin Concent 33.3 G/DL (32.0-36.0) Red Cell Distribution Width 13.9 % (11.6-14.8) Platelet Count 997 K/UL (150-450) H Mean Platelet Volume 6.1 FL (6.5-10.1) L Neutrophils (%) (Auto) % (45.0-75.0) Lymphocytes (%) (Auto) % (20.0-45.0) Monocytes (%) (Auto) % (1.0-10.0) Eosinophils (%) (Auto) % (0.0-3.0) Basophils (%) (Auto) % (0.0-2.0) Differential Total Cells Counted 100 Neutrophils % (Manual) 86 % (45-75) H Lymphocytes % (Manual) 6 % (20-45) L Monocytes % (Manual) 8 % (1-10) Eosinophils % (Manual) 0 % (0-3) Basophils % (Manual) 0 % (0-2) Band Neutrophils 0 % (0-8) Platelet Estimate Increased H Platelet Morphology Normal Sodium Level 137 MMOL/L (136-145) Potassium Level 3.5 MMOL/L (3.5-5.1) Chloride Level 106 MMOL/L (98-107) Carbon Dioxide Level 19 MMOL/L (21-32) L Anion Gap 12 mmol/L (5-15) Blood Urea Nitrogen 12 mg/dL (7-18) Creatinine 1.0 MG/DL (0.55-1.30) Estimat Glomerular Filtration Rate 56.2 mL/min (>60) Glucose Level 83 MG/DL (74-106) Calcium Level 8.1 MG/DL (8.5-10.1) L Current Medications Medications (Trade) Dose Ordered Sig/Zuleima Route PRN Reason Start Time Stop Time Status Last Admin Dose Admin Acetaminophen (Tylenol) 650 mg Q8H PRN ORAL Mild Pain/Temp > 100.5 01/12/19 17:30 02/11/19 17:29 01/13/19 17:27 Bisacodyl (Dulcolax) 10 mg BIDPRN PRN RECTAL Constipation 01/16/19 07:45 02/15/19 07:44 01/19/19 18:34 Dextrose (Dextrose 50%) 25 ml Q30M PRN IV Hypoglycemia 01/12/19 13:45 02/11/19 13:44 Dextrose (Dextrose 50%) 50 ml Q30M PRN IV Hypoglycemia 01/12/19 13:45 02/11/19 13:44 Dextrose/Sodium Chloride 1,000 ml @ 50 mls/hr Q20H IV 01/19/19 12:57 02/18/19 12:56 01/26/19 05:00 Docusate Sodium (Colace) 100 mg TWICE A DAY PRN ORAL constipation 01/22/19 10:15 02/14/19 17:59 Enoxaparin Sodium (Lovenox) 60 mg Q12HR@0600,1800 SUBQ 01/20/19 18:00 02/19/19 17:59 01/26/19 05:54 Fentanyl (Duragesic) 1 patch Q72H TDERMAL 01/25/19 12:00 02/01/19 11:59 01/25/19 13:25 Folic Acid (Folate) 5 mg DAILY ORAL 01/17/19 09:45 02/16/19 09:44 01/26/19 08:08 Gabapentin (Neurontin) 300 mg THREE TIMES A DAY ORAL 01/19/19 18:00 02/18/19 17:59 01/26/19 12:31 Hydromorphone HCl (Dilaudid) 4 mg Q4H PRN ORAL severe breakthrough pain 01/24/19 10:12 01/31/19 10:11 01/26/19 12:31 Meropenem 1 gm/ Sodium Chloride 55 ml @ 110 mls/hr Q8HR IVPB 01/25/19 22:00 01/30/19 21:59 01/26/19 14:17 Methylnaltrexone Curran (Relistor) 12 mg ONCE A WEEK SUBQ 02/01/19 09:00 03/03/19 08:59 Miscellaneous Medication (fentaNYL Destruction) 1 ea Q72H MISC 01/25/19 11:59 02/24/19 11:58 01/25/19 11:59 Naloxone HCl (Narcan) 0.1 mg Q5M PRN IV Sedation scale 3 or 4 01/24/19 09:00 02/23/19 08:54 Ondansetron HCl (Zofran) 4 mg Q6H PRN IVP Nausea & Vomiting 01/12/19 13:45 02/11/19 13:44 01/26/19 08:08 Pantoprazole (Protonix) 40 mg DAILY IVP 01/12/19 16:45 02/11/19 16:44 01/26/19 08:08 Polyethylene Glycol (Miralax) 17 gm BEDTIME PRN ORAL constipation 01/22/19 10:30 02/15/19 20:59 Simethicone (Mylicon) 80 mg BIDPRN PRN ORAL gas 01/18/19 21:45 02/17/19 21:44 01/21/19 14:38 Zolpidem Tartrate (Ambien) 5 mg HSPRN PRN ORAL Insomnia 01/20/19 06:15 01/27/19 06:14 01/23/19 21:03 Catalina Kirby MD Jan 26, 2019 15:37
--- NOTE | 2019-01-26 17:20 | Surgery Progress Note ---
Surgery Progress Note Subjective Additional Comments wbc scan noted labs noted she looks well otherside clinically daughter at bedside Objective Last 24 Hour Vital Signs Date Time Temp Pulse Resp B/P (MAP) Pulse Ox O2 Delivery O2 Flow Rate FiO2 01/26/19 15:46 97.5 82 18 130/88 (102) 96 01/26/19 11:50 97.9 83 12 131/90 (104) 100 01/26/19 09:50 Room Air 01/26/19 09:00 Nasal Cannula 2.0 01/26/19 07:43 96.4 80 12 121/73 (89) 99 01/26/19 04:00 98.0 82 16 126/77 (93) 96 01/26/19 00:00 97.9 81 17 122/72 (89) 97 01/25/19 21:00 Room Air 01/25/19 20:00 97.9 85 17 130/79 (96) 96 I&O Intake and Output 01/25/19 01/26/19 19:00 07:00 Intake Total 1920.000 ml 1500.0 ml Output Total 1000 ml 500 ml Balance 920.000 ml 1000.0 ml Intake Oral 1200 ml 1000 ml IV Total 720.000 ml 500.0 ml Other 1000 ml 500 ml # Voids 6 3 # Bowel Movements 10 5 Dressing: dry Wound: clean Cardiovascular: RSR Respiratory: clear Abdomen: soft, distended, non-tender, present bowel sounds Extremities: edema, no tenderness, no cyanosis Laboratory Tests Test 01/26/19 07:35 White Blood Count 20.7 K/UL (4.8-10.8) H Red Blood Count 4.16 M/UL (4.20-5.40) L Hemoglobin 13.2 G/DL (12.0-16.0) Hematocrit 39.6 % (37.0-47.0) Mean Corpuscular Volume 95 FL (80-99) Mean Corpuscular Hemoglobin 31.6 PG (27.0-31.0) H Mean Corpuscular Hemoglobin Concent 33.3 G/DL (32.0-36.0) Red Cell Distribution Width 13.9 % (11.6-14.8) Platelet Count 997 K/UL (150-450) H Mean Platelet Volume 6.1 FL (6.5-10.1) L Neutrophils (%) (Auto) % (45.0-75.0) Lymphocytes (%) (Auto) % (20.0-45.0) Monocytes (%) (Auto) % (1.0-10.0) Eosinophils (%) (Auto) % (0.0-3.0) Basophils (%) (Auto) % (0.0-2.0) Differential Total Cells Counted 100 Neutrophils % (Manual) 86 % (45-75) H Lymphocytes % (Manual) 6 % (20-45) L Monocytes % (Manual) 8 % (1-10) Eosinophils % (Manual) 0 % (0-3) Basophils % (Manual) 0 % (0-2) Band Neutrophils 0 % (0-8) Platelet Estimate Increased H Platelet Morphology Normal Sodium Level 137 MMOL/L (136-145) Potassium Level 3.5 MMOL/L (3.5-5.1) Chloride Level 106 MMOL/L (98-107) Carbon Dioxide Level 19 MMOL/L (21-32) L Anion Gap 12 mmol/L (5-15) Blood Urea Nitrogen 12 mg/dL (7-18) Creatinine 1.0 MG/DL (0.55-1.30) Estimat Glomerular Filtration Rate 56.2 mL/min (>60) Glucose Level 83 MG/DL (74-106) Calcium Level 8.1 MG/DL (8.5-10.1) L Plan Problems: (1) Abdominal pain Assessment & Plan: 63-year-old female patient with history of recently diagnosed pancreatic cancer in November 2018 presented to the emergency room at [facility] with complaint of abdominal pain for approximately 1 hour. Patient is status post a biliary drain placement at [facility] approximately 1 week ago. She reported that she had a first treatment of chemotherapy this past Thursday. The patient denied any nausea vomiting, denies any constipation or diarrhea. She states her pain medication was unable to relieve her pain. no fever or chills. labs as below. C Tnoted. surgery called to assist with care and management. tube checked Impression: Diffusely abnormal bowel uptake. Given findings on recent CT scan, this most likely represents enteritis, most likely infectious. Abnormal uptake in the face or upper neck to the left of midline, exact location uncertain. Consider neck CT for better characterization Mildly prominent pulmonary uptake, significance doubted okay for diet tube to drain IV abx d/c planning for SNF f/u with pcp / onc outpatient stable otherwise from surgical standpoint no acute surgical intervention planned Probably has extensive tumor burden given interventions and findings noted. No surgical recommendation at this time. Possible that fluid collection in case in the abdomen infected but to operate on this would be ill advised at this time and patient's current condition. Continue with antibiotics iv fluids trend labs will monitor and follow with exam thank you (2) Biliary drain displacement Assessment & Plan: Daughter was able to inform me with a lot of history. Seems patient unresectable initially and attempted biliary drain placed endoscopically but unsuccessful. A external biliary drain was placed by radiology. Would patient was getting her Port-A-Cath placed a another radiologist felt he could place a internal/external biliary drain and he was able to successfully place a internal/external biliary drain. Had the trade Since. Fell off and she has been without it to drainage recently. In evaluating the trade she has some bilious output from the drain and on imaging drain looks to be appropriately placed. Labs reviewed stable. drain placed to gravity as leaking Drain putting out a ton since placed on 2 bag IMPRESSION: 1. Appropriately positioned percutaneous left biliary drain with mild intrahepatic biliary ductal dilatation. 2. Ill-defined pancreatic head/proximal body mass, likely corresponding to stated history of pancreatic neoplasm. Please note evaluation of size and vascular involvement of pancreatic masses is incomplete prior examinations and without multiphasic pancreatic protocol. 3. 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 SMV confluence is not visualized. 4. Color wall thickening with pericholecystic fluid; in the absence of distended gallbladder, these findings are critical for acute pancreatitis and clinical correlation is recommended. Transhepatic biliary drain noted. 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 Abnormal liver with area of peripheral hypoechogenicity along the posterior right lobe margin. Suggest further evaluation with contrast CT. Obscured pancreas and aorta due to bowel gas. . Interval development of moderate small bowel dilatation. Transition to relatively decompressed terminal ileum demonstrated indicating this is probably a mechanical bowel obstruction. Pneumatosis suspected within one of the proximal small bowel segments in the upper abdomen. No evidence of perforation. Development of multiloculated ascites with prominent collections contiguous with the caudal end of the right lobe of the liver capsule, Morison's pouch and inferior to the right kidney. Other generalized mild ascites noted as well. Internal/external transhepatic biliary drainage catheter in good position. No imaging evidence for catheter malfunction or biliary obstruction. CT noted. likely internal leakage from internal external drain as it was noted to be backing put few days ago hence placed on drainage bag recommend outpatient f/u with oncology and her GI at primary facility to discuss placement of internal metallic larger drain and remove internal / external drain (3) Pancreatic cancer Assessment & Plan: Pancreatic cancer, non-resectable, based on patient's info. Had a Abdominal pelvis CT reviewed 1. Appropriately positioned percutaneous left biliary drain with mild intrahepatic biliary ductal dilatation. 2. Ill- defined pancreatic head/proximal body mass, likely corresponding to stated history of pancreatic neoplasm. Please note evaluation of size and vascular involvement of pancreatic masses is incomplete prior examinations and without multiphasic pancreatic protocol. 3. 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 She has already started rx Additional Comments b/l LE edema duplex ordered Jim Gates Jan 26, 2019 17:20
--- NOTE | 2019-01-26 19:15 | NUR ---
HAND-OFF: Report given to Oma KEN RN.
--- NOTE | 2019-01-26 19:57 | NUR ---
NURSE NOTES: received pt in bed. AAOx4 in room air. on abdominal, biliary drain displacement placed via gravity. IV D5 NS 50 ml/hr running and IV site intact and dry. call light within reach. bed is the lowest position. will continue to provide plan of care.
--- NOTE | 2019-01-26 20:19 | NUR ---
ROUGHENER: REVIEW SI: ABDOMINAL PAIN . LEUKOCYTOSIS T 97.5 HR 82 RR 18 BP 130/88 SAT 96% NC/2L WBC 20.[address] 997 IS: RELISTOR SUBQ Q/WEEK MEROPENEM IV Q8HR FENTANYL PATCH Q72HR LOVENOX SUBQ Q12HR D5 NS IVF @ 50ML/HR MED/SURG STATUS DCP: PATIENT IS FROM HOME
[2019-01-27 04:00] VITALS: BP 116/70
[2019-01-27] MEDS: HYDROmorphone 4mg tab ORAL PRN ×3 (04:06→18:01)
[2019-01-27] MEDS: Meropenem 1 GM in NS 55 ML IVPB SCH ×3 (05:30→21:34)
[2019-01-27] MEDS ORDERED: Lidocaine 1% Plain 30 ml INJ ONE (06:00)
[2019-01-27] MEDS: Enoxaparin 60mg Inj SUBQ SCH ×2 (06:01→18:00)
[2019-01-27 06:13] LABS: BASOPHILS % (AUTO) 0.7 % (0.0-2.0); EOSINOPHILS % (AUTO) 0.5 % (0.0-3.0); HEMATOCRIT 30.8 % (37.0-47.0); HEMOGLOBIN 10.2 G/DL (12.0-16.0); LYMPHOCYTES % (AUTO) 5.9 % (20.0-45.0); MEAN CORPUSCULAR VOLUME 94 FL (80-99); MONOCYTES % (AUTO) 8.8 % (1.0-10.0); NEUTROPHILS % (AUTO) 84.1 % (45.0-75.0); PLATELET COUNT 771 K/UL (150-450); RED BLOOD COUNT 3.26 M/UL (4.20-5.40); RED CELL DISTRIBUTION WIDTH 13.9 % (11.6-14.8); WHITE BLOOD COUNT 17.5 K/UL (4.8-10.8)
[2019-01-27 06:45] LABS: ANION GAP 10 mmol/L (5-15); BLOOD UREA NITROGEN 10 mg/dL (7-18); CALCIUM 7.4 MG/DL (8.5-10.1); CARBON DIOXIDE 19 MMOL/L (21-32); CHLORIDE 108 MMOL/L (98-107); POTASSIUM 3.1 MMOL/L (3.5-5.1); SODIUM 136 MMOL/L (136-145)
--- NOTE | 2019-01-27 07:18 | NUR ---
HAND-OFF: Report given to Elpidio Ivey RN.
--- NOTE | 2019-01-27 07:30 | NUR ---
NURSE NOTES: PT AXOX4, CALM, RESTING IN BED. IN NO APPARENT DISTRESS AT THIS TIME. DENIES PAIN OR N/V. BED IN LOWEST POSITION WITH BEDSIDE RAILS X2 RAISED. CALL LIGHT WITHIN REACH. WILL CONTINUE TO MONITOR.
[2019-01-27 08:00] VITALS: BP 123/71
[2019-01-27] MEDS: Pantoprazole Inj IVP SCH (08:29)
[2019-01-27 08:43] LABS: ALANINE AMINOTRANSFERASE 14 U/L (12-78); ALBUMIN 1.5 G/DL (3.4-5.0); ALKALINE PHOSPHATASE 153 U/L (46-116); ASPARTATE AMINO TRANSFERASE 20 U/L (15-37); BILIRUBIN,DIRECT 0.4 MG/DL (0.0-0.3); BILIRUBIN,TOTAL 0.6 MG/DL (0.2-1.0); GAMMA GLUTAMYL TRANSPEPTIDASE 163 U/L (5-85); PHOSPHORUS 2.8 MG/DL (2.5-4.9)
--- NOTE | 2019-01-27 09:04 | General Progress Note ---
Assessment/Plan Assessment/Plan: (1) Intractable abdominal pain (2) Pancreatic cancer We will continue the Neurontin, Dilaudid and Fentanyl patch D/w Dr. Gonzales and he concurred. Subjective Date patient seen: Jan 27, 2019 Time patient seen: 08:15 - am Allergies: Coded Allergies: No Known Allergies (Unverified , 01/12/19) Subjective REVIEW OF SYSTEMS: Denies rash, fever, chills, sweating, dizziness, drowsiness, blurred vision, sore throat, change in weight. No shortness of breath or chest pain. No bowel or bladder incontinence. She is complaining of abdominal pain. SUBJECTIVE: Patient has been in bed and reports she is doing well. Her pain has been at a moderate level and tolerated on the Fentanyl patch and Dilaudid 5 doses in the last 24hrs. No new complaints at this time. Objective Last 24 Hour Vital Signs Date Time Temp Pulse Resp B/P (MAP) Pulse Ox O2 Delivery O2 Flow Rate FiO2 01/27/19 08:00 97.0 74 19 123/71 (88) 99 01/27/19 04:00 97.3 74 19 116/70 (85) 98 01/26/19 23:57 97.3 86 18 108/62 (77) 97 01/26/19 20:08 Nasal Cannula 2.0 01/26/19 20:00 97.3 86 19 129/76 (93) 100 01/26/19 15:46 97.5 82 18 130/88 (102) 96 01/26/19 11:50 97.9 83 12 131/90 (104) 100 01/26/19 09:50 Room Air Intake and Output 01/26/19 01/27/19 18:59 06:59 Intake Total 605 ml 1110 ml Output Total 300 ml 250 ml Balance 305 ml 860 ml Intake Oral 400 ml IV Total 605 ml 710 ml Other 300 ml 250 ml # Voids 1 4 # Bowel Movements 4 3 Laboratory Tests 01/27/19 05:35: White Blood Count 17.5H, Red Blood Count 3.26L, Hemoglobin 10.2L, Hematocrit 30.8L, Mean Corpuscular Volume 94, Mean Corpuscular Hemoglobin 31.3H, Mean Corpuscular Hemoglobin Concent 33.1, Red Cell Distribution Width 13.9, Platelet Count 771H, Mean Platelet Volume 6.1L, Neutrophils (%) (Auto) 84.1H, Lymphocytes (%) (Auto) 5.9L, Monocytes (%) (Auto) 8.8, Eosinophils (%) (Auto) 0.5, Basophils (%) (Auto) 0.7, Sodium Level 136, Potassium Level 3.1L, Chloride Level 108H, Carbon Dioxide Level 19L, Anion Gap 10, Blood Urea Nitrogen 10, Creatinine 1.0, Estimat Glomerular Filtration Rate 56.2, Glucose Level 93, Calcium Level 7.4L 01/27/19 08:23: Phosphorus Level 2.8, Magnesium Level 1.7L, Total Bilirubin 0.6, Direct Bilirubin 0.4H, Gamma Glutamyl Transpeptidase 163H, Aspartate Amino Transf (AST/ SGOT) 20, Alanine Aminotransferase (ALT/SGPT) 14, Alkaline Phosphatase 153H, Total Protein 5.1L, Albumin 1.5L Height (Feet): 5 Height (Inches): 3.00 Weight (Pounds): 164 Objective GENERAL: Alert, awake, and oriented. LUNGS: Clear bilaterally. HEART: S1, S2 regular. ABDOMEN: Tenderness to palpation with biliary stent noted. BACK: Range of motion is decreased in flexion, extension. EXTREMITIES: No cyanosis. No clubbing. No edema. NEURO: No changes. Doug Reid Jan 27, 2019 09:04
--- NOTE | 2019-01-27 09:17 | NUR ---
NURSE NOTES: DR ALBARADO MADE AWARE OF POTASSIUM LEVEL 3.1 TODAY. PER MD, HE WILL PUT IN ORDERS.
--- NOTE | 2019-01-27 10:02 | Nephrology Progress Note ---
Assessment/Plan Problem List: (1) Electrolyte abnormality (2) Pancreatic cancer (3) Biliary drain displacement (4) Abdominal pain (5) Malnutrition Assessment HypoKalemia HypoNatremia Abdominal pain. Nausea. Vomiting. UTI. Pancreatic cancer. Biliary drain displacement Malnutrition. 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 Subjective ROS Limited/Unobtainable: No Constitutional: Reports: malaise Objective Objective Last 24 Hour Vital Signs Date Time Temp Pulse Resp B/P (MAP) Pulse Ox O2 Delivery O2 Flow Rate FiO2 01/27/19 09:00 Nasal Cannula 2.0 01/27/19 08:00 97.0 74 19 123/71 (88) 99 01/27/19 04:00 97.3 74 19 116/70 (85) 98 01/26/19 23:57 97.3 86 18 108/62 (77) 97 01/26/19 20:08 Nasal Cannula 2.0 01/26/19 20:00 97.3 86 19 129/76 (93) 100 01/26/19 15:46 97.5 82 18 130/88 (102) 96 01/26/19 11:50 97.9 83 12 131/90 (104) 100 Intake and Output 01/26/19 01/27/19 18:59 06:59 Intake Total 605 ml 1110 ml Output Total 300 ml 250 ml Balance 305 ml 860 ml Intake Oral 400 ml IV Total 605 ml 710 ml Other 300 ml 250 ml # Voids 1 4 # Bowel Movements 4 3 Laboratory Tests 01/27/19 05:35: White Blood Count 17.5H, Red Blood Count 3.26L, Hemoglobin 10.2L, Hematocrit 30.8L, Mean Corpuscular Volume 94, Mean Corpuscular Hemoglobin 31.3H, Mean Corpuscular Hemoglobin Concent 33.1, Red Cell Distribution Width 13.9, Platelet Count 771H, Mean Platelet Volume 6.1L, Neutrophils (%) (Auto) 84.1H, Lymphocytes (%) (Auto) 5.9L, Monocytes (%) (Auto) 8.8, Eosinophils (%) (Auto) 0.5, Basophils (%) (Auto) 0.7, Sodium Level 136, Potassium Level 3.1L, Chloride Level 108H, Carbon Dioxide Level 19L, Anion Gap 10, Blood Urea Nitrogen 10, Creatinine 1.0, Estimat Glomerular Filtration Rate 56.2, Glucose Level 93, Calcium Level 7.4L 01/27/19 08:23: Phosphorus Level 2.8, Magnesium Level 1.7L, Total Bilirubin 0.6, Direct Bilirubin 0.4H, Gamma Glutamyl Transpeptidase 163H, Aspartate Amino Transf (AST/ SGOT) 20, Alanine Aminotransferase (ALT/SGPT) 14, Alkaline Phosphatase 153H, Total Protein 5.1L, Albumin 1.5L Height (Feet): 5 Height (Inches): 3.00 Weight (Pounds): 164 General Appearance: mild distress Cardiovascular: normal rate Respiratory/Chest: decreased breath sounds Abdomen: distended Objective no change Kapil Turcios MD Jan 27, 2019 10:02
--- NOTE | 2019-01-27 11:12 | NUR ---
NURSE NOTES: PT TAKEN OFF UNIT TO RADIOLOGY FOR PROCEDURE US GUIDED ASPIRATION AND POSSIBLE DRAINAGE OF ABDOMINAL FLUID COLLECTIONS WITH POSSIBLE MODERATE SEDATION. PER EDWARD, ONLY LOCAL ANESTHESIA WILL BE USED. PT SPOKE TO HER PRIMARY DOCTOR OVER THE PHONE FOR CONSULT AND AGREED TO PROCEDURE. PT SIGNED CONSENT.
[2019-01-27 11:23] VITALS: BP 142/86
--- NOTE | 2019-01-27 11:25 | Pre-Procedure Note/Attestation ---
Pre-Procedure Note/Attestation Complete Prior to Procedure Planned Procedure: not applicable Procedure Narrative: Aspiration and possible drainage of hepatic subcapsular and RLQ fluid collections Indications for Procedure Pre-Operative Diagnosis: Abdominal fluid collections, possibly infected Attestation I attest that I discussed the nature of the procedure; its benefits; risks and complications; and alternatives (and the risks and benefits of such alternatives ), prior to the procedure, with the patient (or the patient's legal district sales representative). I attest that, if there was a reasonable possibility of needing a blood transfusion, the patient (or the patient's legal district sales representative) was given the [place] [employer] standardized written summary, pursuant to the Rafael Chastity Blood Safety Act ([place] Health and Safety Code # 1645, as amended). I attest that I re-evaluated the patient just prior to the surgery and that there has been no change in the patient's H&P, except as documented below: Varun Limon MD Jan 27, 2019 11:25
--- NOTE | 2019-01-27 11:50 | Brief Operative Note ---
Immediate Post Operative Note Operative Note Pre-op Diagnosis: Abdominal fluid collections, possibly infected Procedure: 1. Aspiration of hepatic subcapsular collection 2. Drainage of anterior RLQ collection Post-op Diagnosis: same Findings: other - Serous fluid aspirated from hepatic subcapsular collection. No drain placed. Brown cloudy borderline purulent fluid aspirated from anterior RLQ collection; 8.5 F drain placed. Surgeon: Kassy Le Anesthesia: local Specimen: yes - Specimens from both collections sent to lab for microbial analysis Complications: none Condition: stable Fluids: none Drains: other - 8.5 F drain in anterior RLQ collection Implant(s) used?: No Varun Le MD Jan 27, 2019 11:50
[2019-01-27 12:00] VITALS: BP 131/77
--- NOTE | 2019-01-27 12:57 | GI Progress Note ---
Assessment/Plan Problems: (1) Pancreatic cancer ICD Codes: C25.9 - Malignant neoplasm of pancreas, unspecified SNOMED: 031049805 (2) Biliary drain displacement ICD Codes: T85.520A - Displacement of bile duct prosthesis, initial encounter SNOMED: 148985278 (3) Abdominal pain ICD Codes: R10.9 - Unspecified abdominal pain SNOMED: 08027909 Status: stable Status Narrative Discussed with Dr. Rocha. Assessment/Plan Abdominal pelvis CT reviewed 1. Appropriately positioned percutaneous left biliary drain with mild intrahepatic biliary ductal dilatation. 2. Ill-defined pancreatic head/proximal body mass, likely corresponding to stated history of pancreatic neoplasm. Please note evaluation of size and vascular involvement of pancreatic masses is incomplete prior examinations and without multiphasic pancreatic protocol. 3. 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 SMV confluence is not visualized. 4. Color wall thickening with pericholecystic fluid; in the absence of distended gallbladder, these findings are critical for acute pancreatitis and clinical correlation is recommended. No plans for GI procedures at this time. Symptomatic treatment Pain management surgical recommendations, biliary drain placed to gravity. bowel regime, colace + miralax. Relistor q weekly. Follow-up pain management recommendations ppi Trend LFTs advance diet as tolerated We will follow-up The patient was seen and examined at bedside and all new and available data was reviewed in the patients chart. I agree with the above findings, impression and plan. (Patient seen earlier today. Signature stamp does not reflect patient encounter time.). - Indra Rocha MD Subjective Subjective Patient still complains of abdominal pain Objective Last 24 Hour Vital Signs Date Time Temp Pulse Resp B/P (MAP) Pulse Ox O2 Delivery O2 Flow Rate FiO2 01/27/19 11:23 76 35 01/27/19 09:00 Nasal Cannula 2.0 01/27/19 08:00 97.0 74 19 123/71 (88) 99 01/27/19 04:00 97.3 74 19 116/70 (85) 98 01/26/19 23:57 97.3 86 18 108/62 (77) 97 01/26/19 20:08 Nasal Cannula 2.0 01/26/19 20:00 97.3 86 19 129/76 (93) 100 01/26/19 15:46 97.5 82 18 130/88 (102) 96 Intake and Output 01/26/19 01/27/19 19:00 07:00 Intake Total 555 ml 1160 ml Output Total 300 ml 250 ml Balance 255 ml 910 ml Intake Oral 400 ml IV Total 555 ml 760 ml Other 300 ml 250 ml # Voids 1 4 # Bowel Movements 4 3 Laboratory Tests Test 01/27/19 05:35 01/27/19 08:23 White Blood Count 17.5 K/UL (4.8-10.8) H Red Blood Count 3.26 M/UL (4.20-5.40) L Hemoglobin 10.2 G/DL (12.0-16.0) L Hematocrit 30.8 % (37.0-47.0) L Mean Corpuscular Volume 94 FL (80-99) Mean Corpuscular Hemoglobin 31.3 PG (27.0-31.0) H Mean Corpuscular Hemoglobin Concent 33.1 G/DL (32.0-36.0) Red Cell Distribution Width 13.9 % (11.6-14.8) Platelet Count 771 K/UL (150-450) H Mean Platelet Volume 6.1 FL (6.5-10.1) L Neutrophils (%) (Auto) 84.1 % (45.0-75.0) H Lymphocytes (%) (Auto) 5.9 % (20.0-45.0) L Monocytes (%) (Auto) 8.8 % (1.0-10.0) Eosinophils (%) (Auto) 0.5 % (0.0-3.0) Basophils (%) (Auto) 0.7 % (0.0-2.0) Sodium Level 136 MMOL/L (136-145) Potassium Level 3.1 MMOL/L (3.5-5.1) L Chloride Level 108 MMOL/L (98-107) H Carbon Dioxide Level 19 MMOL/L (21-32) L Anion Gap 10 mmol/L (5-15) Blood Urea Nitrogen 10 mg/dL (7-18) Creatinine 1.0 MG/DL (0.55-1.30) Estimat Glomerular Filtration Rate 56.2 mL/min (>60) Glucose Level 93 MG/DL (74-106) Calcium Level 7.4 MG/DL (8.5-10.1) L Phosphorus Level 2.8 MG/DL (2.5-4.9) Magnesium Level 1.7 MG/DL (1.8-2.4) L Total Bilirubin 0.6 MG/DL (0.2-1.0) Direct Bilirubin 0.4 MG/DL (0.0-0.3) H Gamma Glutamyl Transpeptidase 163 U/L (5-85) H Aspartate Amino Transf (AST/SGOT) 20 U/L (15-37) Alanine Aminotransferase (ALT/SGPT) 14 U/L (12-78) Alkaline Phosphatase 153 U/L (46-116) H Total Protein 5.1 G/DL (6.4-8.2) L Albumin 1.5 G/DL (3.4-5.0) L Height (Feet): 5 Height (Inches): 3.00 Weight (Pounds): 164 General Appearance: no apparent distress Cardiovascular: normal rate Respiratory/Chest: normal breath sounds, no respiratory distress Abdominal Exam: normal bowel sounds, non tender, soft Extremities: normal range of motion, non-tender Jeff Rueda NP Jan 27, 2019 12:57
--- NOTE | 2019-01-27 13:06 | General Progress Note ---
Assessment/Plan Problem List: (1) SOB (shortness of breath) ICD Codes: R06.02 - Shortness of breath SNOMED: 472957673 (2) Nausea & vomiting ICD Codes: R11.2 - Nausea with vomiting, unspecified SNOMED: 43882308 (3) Malnutrition ICD Codes: E46 - Unspecified protein-calorie malnutrition SNOMED: 41393133 (4) UTI (urinary tract infection) ICD Codes: N39.0 - Urinary tract infection, site not specified SNOMED: 55987191 (5) Abdominal pain ICD Codes: R10.9 - Unspecified abdominal pain SNOMED: 20701101 (6) Biliary drain displacement ICD Codes: T85.520A - Displacement of bile duct prosthesis, initial encounter SNOMED: 354189863 (7) Pancreatic cancer ICD Codes: C25.9 - Malignant neoplasm of pancreas, unspecified SNOMED: 327455783 Status: stable, progressing Assessment/Plan: pt diet pain control abx cbc bmp am dc plan snf Subjective Constitutional: Reports: weakness Allergies: Coded Allergies: No Known Allergies (Unverified , 01/12/19) All Systems: reviewed and negative except above Subjective o2nc sl nausea abd pain Objective Last 24 Hour Vital Signs Date Time Temp Pulse Resp B/P (MAP) Pulse Ox O2 Delivery O2 Flow Rate FiO2 01/27/19 11:23 76 35 01/27/19 09:00 Nasal Cannula 2.0 01/27/19 08:00 97.0 74 19 123/71 (88) 99 01/27/19 04:00 97.3 74 19 116/70 (85) 98 01/26/19 23:57 97.3 86 18 108/62 (77) 97 01/26/19 20:08 Nasal Cannula 2.0 01/26/19 20:00 97.3 86 19 129/76 (93) 100 01/26/19 15:46 97.5 82 18 130/88 (102) 96 Intake and Output 01/26/19 01/27/19 19:00 07:00 Intake Total 555 ml 1160 ml Output Total 300 ml 250 ml Balance 255 ml 910 ml Intake Oral 400 ml IV Total 555 ml 760 ml Other 300 ml 250 ml # Voids 1 4 # Bowel Movements 4 3 Laboratory Tests 01/27/19 05:35: White Blood Count 17.5H, Red Blood Count 3.26L, Hemoglobin 10.2L, Hematocrit 30.8L, Mean Corpuscular Volume 94, Mean Corpuscular Hemoglobin 31.3H, Mean Corpuscular Hemoglobin Concent 33.1, Red Cell Distribution Width 13.9, Platelet Count 771H, Mean Platelet Volume 6.1L, Neutrophils (%) (Auto) 84.1H, Lymphocytes (%) (Auto) 5.9L, Monocytes (%) (Auto) 8.8, Eosinophils (%) (Auto) 0.5, Basophils (%) (Auto) 0.7, Sodium Level 136, Potassium Level 3.1L, Chloride Level 108H, Carbon Dioxide Level 19L, Anion Gap 10, Blood Urea Nitrogen 10, Creatinine 1.0, Estimat Glomerular Filtration Rate 56.2, Glucose Level 93, Calcium Level 7.4L 01/27/19 08:23: Phosphorus Level 2.8, Magnesium Level 1.7L, Total Bilirubin 0.6, Direct Bilirubin 0.4H, Gamma Glutamyl Transpeptidase 163H, Aspartate Amino Transf (AST/ SGOT) 20, Alanine Aminotransferase (ALT/SGPT) 14, Alkaline Phosphatase 153H, Total Protein 5.1L, Albumin 1.5L Height (Feet): 5 Height (Inches): 3.00 Weight (Pounds): 164 General Appearance: lethargic EENT: normal ENT inspection Neck: normal alignment Cardiovascular: normal peripheral pulses, normal rate, regular rhythm Respiratory/Chest: chest wall non-tender, lungs clear, normal breath sounds Abdomen: normal bowel sounds, non tender, soft Extremities: normal inspection Edema: no edema noted Arm (L), no edema noted Arm (R), no edema noted Leg (L), no edema noted Leg (R), no edema noted Pedal (L), no edema noted Pedal (R), no edema noted Generalized Neurologic: responsive, motor weakness Skin: normal pigmentation, warm/dry Elvis Luke DO Jan 27, 2019 13:06
--- NOTE | 2019-01-27 13:20 | NUR ---
PT NOTE Attempted to see patient for PT treatment. Patient declining to participate with PT, states that she just returned to bed, would like to rest. Per Elpidio RN patient has been up with nursing to the bathroom. Will follow up tomorrow.
--- NOTE | 2019-01-27 14:26 | Diagnostic Imaging Report ---
Indication: Abdominal pain, abnormal fluid collections on prior imaging studies, leukocytosis, fevers, Technique: Prior imaging studies reviewed. Informed consent obtained prior to commencement of the procedure. Procedure timeout performed. The skin was sterilely prepped and draped. Initially, attention turned to the posterior hepatic subcapsular collection. Local anesthesia with 1% lidocaine. Under real-time ultrasound guidance, a 21-gauge AccuStick needle was advanced into the collection via a subcostal approach. A 0.018 guidewire was inserted, followed by insertion of a 6 [place] AccuStick introducer assembly. Guidewire, stiffener, dilator removed. The 6 Mac[place] catheter was aspirated, yielding a small amount of serous fluid. As this did not appear to be grossly infected, no drainage catheter was placed. The catheter was removed, and a specimen was sent to the lab. Subsequent, attention turned to the anterior right lower quadrant collection. Local anesthesia with 1% lidocaine. Under real-time ultrasound guidance, a 8.5 [place] pigtail drainage catheter was directed into the collection using trocar technique. The pigtail was formed. Approximately 80 mL of dark brown cloudy somewhat thin but borderline purulent fluid aspirated. A specimen was sent to lab. The catheter was fixed to the skin and placed to UreSil bag drainage. The patient tolerated the procedure well, without immediate complication. Comparison: Reference made to CT scan 01/20/2019, nuclear indium scan of 01/25/2019 Findings: As above, with intraprocedural imaging documenting needle and catheter placement within the target collections Impression: Aspiration of posterior hepatic subcapsular collection, yielding serous fluid which does not appear grossly infected. No drainage catheter placed, therefore, but a specimen was sent to the lab for analysis Placement of 8.5 Mac[place] pigtail drainage catheter in anterior right lower quadrant intraperitoneal collection. This yielded borderline purulent appearing body brown fluid. Specimen sent to lab for analysis
--- NOTE | 2019-01-27 15:09 | NUR ---
NURSE NOTES: RN SPOKE TO NILAY AT LAB TO CONFIRM RECEIPT OF ABDOMINAL FLUIDS FOR AEROBIC AND ANAEROBIC CULTURES AND CELL COUNT. PER NILAY, HE HAS RECEIVED THE ORDERS BUT NOT THE FLUIDS. RN SPOKE TO JIMMIE, WHO STATES HE DELIVERED THE FLUIDS TO LAB.
--- NOTE | 2019-01-27 15:14 | Infectious Diseases Prog Note ---
Assessment/Plan Assessment/Plan Fever 01/13, SP Leukocytosis, fluctuating 01/14 bcx ng tumor related? Ileus related? biloma related? atelectasis? 01/24 Indium scan: Diffusely abnormal bowel uptake. Given findings on recent CT scan, this most likely represents enteritis, most likely infectious. Abnormal uptake in the face or upper neck to the left of midline, exact location uncertain. Consider neck CT for better characterization. Mildly prominent pulmonary uptake, significance doubted. On further review the images, activity in the right midabdomen is greater than would be accounted for acute spine hepatic activity, and there is significant activity inferior to the right lobe of the liver in the anterior abdomen. This correlates with a large loculated fluid collection demonstrated on recent CT scan of 01/20/2019, and may indicate infection of this collection. The smaller subcapsular collection in the posterior right hepatic lobe is difficult to differentiate from normal liver activity on this exam, so it is not possible to assess for the presence or absence of abnormal activity in this. 01/27 US: Aspiration of posterior hepatic subcapsular collection, yielding serous fluid which does not appear grossly infected. No drainage catheter placed , therefore, but a specimen was sent to the lab for analysis. Placement of 8.5 [place] pigtail drainage catheter in anterior right lower quadrant intraperitoneal collection. This yielded borderline purulent appearing body brown fluid. Specimen sent to lab for analysis. PNA, CAP? -CXR: Patchy consolidation in the right lower lung, concerning for pneumonia. Mild pulmonary vascular congestion. -flu swab negative urine legionella antigen negative Abdominal pain Pancreatitis? lipase negative 01/12 CT abd/p: Appropriately positioned percutaneous left biliary drain with mild intrahepatic biliary ductal dilatation. Ill-defined pancreatic head/ proximal body mass, likely corresponding to stated history of pancreatic neoplasm. Please note evaluation of size and vascular involvement of pancreatic masses is incomplete prior examinations and without multiphasic pancreatic protocol. 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 SMV confluence is not visualized. Gallbladder wall thickening with pericholecystic fluid; in the absence of distended gallbladder, these findings are critical for acute pancreatitis and clinical correlation is recommended. 01/19 US Abd: Transhepatic biliary drain noted. 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 Abnormal liver with area of peripheral hypoechogenicity along the posterior right lobe margin. Suggest further evaluation with contrast CT. Obscured pancreas and aorta due to bowel gas. Trace ascites 01/20 CT A/P: Interval development of moderate small bowel dilatation. Transition to relatively decompressed terminal ileum demonstrated indicating this is probably a mechanical bowel obstruction. Pneumatosis suspected within one of the proximal small bowel segments in the upper abdomen. No evidence of perforation. Development of multiloculated ascites with prominent collections contiguous with the caudal end of the right lobe of the liver capsule, Morison's pouch and inferior to the right kidney. Other generalized mild ascites noted as well. Internal/external transhepatic biliary drainage catheter in good position. No imaging evidence for catheter malfunction or biliary obstruction. Right basilar consolidation versus atelectasis. Correlate for pneumonia. Trace bilateral pleural effusions. 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 Will continue to follow along with you. Subjective Allergies: Coded Allergies: No Known Allergies (Unverified , 01/12/19) Subjective Afebrile. SP US guided aspiration of abdominal fluid. Pt tolerated procedure well. Pt appears more interactive, energetic today although continues to report abdominal pain Objective Vital Signs Last 24 Hour Vital Signs Date Time Temp Pulse Resp B/P (MAP) Pulse Ox O2 Delivery O2 Flow Rate FiO2 01/27/19 12:00 97.9 86 18 131/77 (95) 98 01/27/19 11:23 76 35 01/27/19 09:00 Nasal Cannula 2.0 01/27/19 08:00 97.0 74 19 123/71 (88) 99 01/27/19 04:00 97.3 74 19 116/70 (85) 98 01/26/19 23:57 97.3 86 18 108/62 (77) 97 01/26/19 20:08 Nasal Cannula 2.0 01/26/19 20:00 97.3 86 19 129/76 (93) 100 01/26/19 15:46 97.5 82 18 130/88 (102) 96 Height (Feet): 5 Height (Inches): 3.00 Weight (Pounds): 164 Objective Gen: NAD CV: RRR Resp: RRR Abd: hypoactive BS+. Diffusely TTP but worse RUQ. Ext: no edema Neuro: alert. Laboratory Tests Test 01/27/19 05:35 01/27/19 08:23 01/27/19 13:10 White Blood Count 17.5 K/UL (4.8-10.8) H Red Blood Count 3.26 M/UL (4.20-5.40) L Hemoglobin 10.2 G/DL (12.0-16.0) L Hematocrit 30.8 % (37.0-47.0) L Mean Corpuscular Volume 94 FL (80-99) Mean Corpuscular Hemoglobin 31.3 PG (27.0-31.0) H Mean Corpuscular Hemoglobin Concent 33.1 G/DL (32.0-36.0) Red Cell Distribution Width 13.9 % (11.6-14.8) Platelet Count 771 K/UL (150-450) H Mean Platelet Volume 6.1 FL (6.5-10.1) L Neutrophils (%) (Auto) 84.1 % (45.0-75.0) H Lymphocytes (%) (Auto) 5.9 % (20.0-45.0) L Monocytes (%) (Auto) 8.8 % (1.0-10.0) Eosinophils (%) (Auto) 0.5 % (0.0-3.0) Basophils (%) (Auto) 0.7 % (0.0-2.0) Sodium Level 136 MMOL/L (136-145) Potassium Level 3.1 MMOL/L (3.5-5.1) L Chloride Level 108 MMOL/L (98-107) H Carbon Dioxide Level 19 MMOL/L (21-32) L Anion Gap 10 mmol/L (5-15) Blood Urea Nitrogen 10 mg/dL (7-18) Creatinine 1.0 MG/DL (0.55-1.30) Estimat Glomerular Filtration Rate 56.2 mL/min (>60) Glucose Level 93 MG/DL (74-106) Calcium Level 7.4 MG/DL (8.5-10.1) L Phosphorus Level 2.8 MG/DL (2.5-4.9) Magnesium Level 1.7 MG/DL (1.8-2.4) L Total Bilirubin 0.6 MG/DL (0.2-1.0) Direct Bilirubin 0.4 MG/DL (0.0-0.3) H Gamma Glutamyl Transpeptidase 163 U/L (5-85) H Aspartate Amino Transf (AST/SGOT) 20 U/L (15-37) Alanine Aminotransferase (ALT/SGPT) 14 U/L (12-78) Alkaline Phosphatase 153 U/L (46-116) H Total Protein 5.1 G/DL (6.4-8.2) L Albumin 1.5 G/DL (3.4-5.0) L Folate 94.4 NG/ML (8.6-58.9) H Current Medications Medications (Trade) Dose Ordered Sig/Zuleima Route PRN Reason Start Time Stop Time Status Last Admin Dose Admin Acetaminophen (Tylenol) 650 mg Q8H PRN ORAL Mild Pain/Temp > 100.5 01/12/19 17:30 02/11/19 17:29 01/13/19 17:27 Bisacodyl (Dulcolax) 10 mg BIDPRN PRN RECTAL Constipation 01/16/19 07:45 02/15/19 07:44 01/19/19 18:34 Dextrose (Dextrose 50%) 25 ml Q30M PRN IV Hypoglycemia 01/12/19 13:45 02/11/19 13:44 Dextrose (Dextrose 50%) 50 ml Q30M PRN IV Hypoglycemia 01/12/19 13:45 02/11/19 13:44 Enoxaparin Sodium (Lovenox) 60 mg Q12HR@0600,1800 SUBQ 01/20/19 18:00 02/19/19 17:59 01/27/19 06:01 Fentanyl (Duragesic) 1 patch Q72H TDERMAL 01/25/19 12:00 02/01/19 11:59 01/25/19 13:25 Folic Acid (Folate) 5 mg DAILY ORAL 01/17/19 09:45 02/16/19 09:44 01/27/19 08:29 Gabapentin (Neurontin) 300 mg THREE TIMES A DAY ORAL 01/19/19 18:00 02/18/19 17:59 01/27/19 12:16 Hydromorphone HCl (Dilaudid) 4 mg Q4H PRN ORAL severe breakthrough pain 01/24/19 10:12 01/31/19 10:11 01/27/19 13:51 Meropenem 1 gm/ Sodium Chloride 55 ml @ 110 mls/hr Q8HR IVPB 01/25/19 22:00 01/30/19 21:59 01/27/19 05:30 Methylnaltrexone [place] (Relistor) 12 mg ONCE A WEEK SUBQ 02/01/19 09:00 03/03/19 08:59 Miscellaneous Medication (fentaNYL Destruction) 1 ea Q72H MISC 01/25/19 11:59 02/24/19 11:58 01/25/19 11:59 Naloxone HCl (Narcan) 0.1 mg Q5M PRN IV Sedation scale 3 or 4 01/24/19 09:00 02/23/19 08:54 Ondansetron HCl (Zofran) 4 mg Q6H PRN IVP Nausea & Vomiting 01/12/19 13:45 02/11/19 13:44 01/26/19 08:08 Pantoprazole (Protonix) 40 mg EVERY 12 HOURS ORAL 01/27/19 21:00 02/26/19 20:59 Polyethylene Glycol (Miralax) 17 gm BEDTIME PRN ORAL constipation 01/22/19 10:30 02/15/19 20:59 Potassium Chloride (K-Dur) 40 meq TWICE A DAY ORAL 01/27/19 10:00 02/26/19 09:59 01/27/19 12:15 Simethicone (Mylicon) 80 mg BIDPRN PRN ORAL gas 01/18/19 21:45 02/17/19 21:44 01/21/19 14:38 Zolpidem Tartrate (Ambien) 5 mg HSPRN PRN ORAL Insomnia 01/26/19 21:00 02/02/19 20:59 Catalina Kirby MD Jan 27, 2019 15:14
--- NOTE | 2019-01-27 15:47 | NUR ---
NURSE NOTES: RN SPOKE TO TRE IN LAB. PER TRE, THE ABDOMINAL FLUID COLLECTION WAS DELIVERED TO LAB THIS MORNING BUT WAS MISPLACED. RN TO CALL BACK IN 1 HOUR FOR UPDATE.
[2019-01-27 16:00] VITALS: BP 139/81
--- NOTE | 2019-01-27 16:19 | Surgery Progress Note ---
Surgery Progress Note Subjective Additional Comments had abd drain placed today. output noted and murky pending micro wbc improved plt trended Objective Last 24 Hour Vital Signs Date Time Temp Pulse Resp B/P (MAP) Pulse Ox O2 Delivery O2 Flow Rate FiO2 01/27/19 12:00 97.9 86 18 131/77 (95) 98 01/27/19 11:23 76 35 01/27/19 09:00 Nasal Cannula 2.0 01/27/19 08:00 97.0 74 19 123/71 (88) 99 01/27/19 04:00 97.3 74 19 116/70 (85) 98 01/26/19 23:57 97.3 86 18 108/62 (77) 97 01/26/19 20:08 Nasal Cannula 2.0 01/26/19 20:00 97.3 86 19 129/76 (93) 100 I&O Intake and Output 01/26/19 01/27/19 19:00 07:00 Intake Total 555 ml 1160 ml Output Total 300 ml 250 ml Balance 255 ml 910 ml Intake Oral 400 ml IV Total 555 ml 760 ml Other 300 ml 250 ml # Voids 1 4 # Bowel Movements 4 3 Dressing: other Wound: other Drains: other Cardiovascular: RSR Respiratory: decreased breath sounds Abdomen: soft, present bowel sounds, non-distended Extremities: no tenderness, no cyanosis Laboratory Tests Test 01/27/19 05:35 01/27/19 08:23 01/27/19 13:10 White Blood Count 17.5 K/UL (4.8-10.8) H Red Blood Count 3.26 M/UL (4.20-5.40) L Hemoglobin 10.2 G/DL (12.0-16.0) L Hematocrit 30.8 % (37.0-47.0) L Mean Corpuscular Volume 94 FL (80-99) Mean Corpuscular Hemoglobin 31.3 PG (27.0-31.0) H Mean Corpuscular Hemoglobin Concent 33.1 G/DL (32.0-36.0) Red Cell Distribution Width 13.9 % (11.6-14.8) Platelet Count 771 K/UL (150-450) H Mean Platelet Volume 6.1 FL (6.5-10.1) L Neutrophils (%) (Auto) 84.1 % (45.0-75.0) H Lymphocytes (%) (Auto) 5.9 % (20.0-45.0) L Monocytes (%) (Auto) 8.8 % (1.0-10.0) Eosinophils (%) (Auto) 0.5 % (0.0-3.0) Basophils (%) (Auto) 0.7 % (0.0-2.0) Sodium Level 136 MMOL/L (136-145) Potassium Level 3.1 MMOL/L (3.5-5.1) L Chloride Level 108 MMOL/L (98-107) H Carbon Dioxide Level 19 MMOL/L (21-32) L Anion Gap 10 mmol/L (5-15) Blood Urea Nitrogen 10 mg/dL (7-18) Creatinine 1.0 MG/DL (0.55-1.30) Estimat Glomerular Filtration Rate 56.2 mL/min (>60) Glucose Level 93 MG/DL (74-106) Calcium Level 7.4 MG/DL (8.5-10.1) L Phosphorus Level 2.8 MG/DL (2.5-4.9) Magnesium Level 1.7 MG/DL (1.8-2.4) L Total Bilirubin 0.6 MG/DL (0.2-1.0) Direct Bilirubin 0.4 MG/DL (0.0-0.3) H Gamma Glutamyl Transpeptidase 163 U/L (5-85) H Aspartate Amino Transf (AST/SGOT) 20 U/L (15-37) Alanine Aminotransferase (ALT/SGPT) 14 U/L (12-78) Alkaline Phosphatase 153 U/L (46-116) H Total Protein 5.1 G/DL (6.4-8.2) L Albumin 1.5 G/DL (3.4-5.0) L Folate 94.4 NG/ML (8.6-58.9) H Plan Problems: (1) Abdominal pain Assessment & Plan: 63-year-old female patient with history of recently diagnosed pancreatic cancer in November 2018 presented to the emergency room at [facility] with complaint of abdominal pain for approximately 1 hour. Patient is status post a biliary drain placement at [facility] approximately 1 week ago. She reported that she had a first treatment of chemotherapy this past Thursday. The patient denied any nausea vomiting, denies any constipation or diarrhea. She states her pain medication was unable to relieve her pain. no fever or chills. labs as below. C Tnoted. surgery called to assist with care and management. tube checked Impression: Diffusely abnormal bowel uptake. Given findings on recent CT scan, this most likely represents enteritis, most likely infectious. Abnormal uptake in the face or upper neck to the left of midline, exact location uncertain. Consider neck CT for better characterization Mildly prominent pulmonary uptake, significance doubted okay for diet tube to drain IV abx d/c planning for SNF f/u with pcp / onc outpatient stable otherwise from surgical standpoint no acute surgical intervention planned Probably has extensive tumor burden given interventions and findings noted. No surgical recommendation at this time. Possible that fluid collection in case in the abdomen infected but to operate on this would be ill advised at this time and patient's current condition. Continue with antibiotics iv fluids trend labs will monitor and follow with exam thank you (2) Biliary drain displacement Assessment & Plan: Daughter was able to inform me with a lot of history. Seems patient unresectable initially and attempted biliary drain placed endoscopically but unsuccessful. A external biliary drain was placed by radiology. Would patient was getting her Port-A-Cath placed a another radiologist felt he could place a internal/external biliary drain and he was able to successfully place a internal/external biliary drain. Had the trade Since. Fell off and she has been without it to drainage recently. In evaluating the trade she has some bilious output from the drain and on imaging drain looks to be appropriately placed. Labs reviewed stable. drain placed to gravity as leaking Drain putting out a ton since placed on 2 bag IMPRESSION: 1. Appropriately positioned percutaneous left biliary drain with mild intrahepatic biliary ductal dilatation. 2. Ill-defined pancreatic head/proximal body mass, likely corresponding to stated history of pancreatic neoplasm. Please note evaluation of size and vascular involvement of pancreatic masses is incomplete prior examinations and without multiphasic pancreatic protocol. 3. 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 SMV confluence is not visualized. 4. Color wall thickening with pericholecystic fluid; in the absence of distended gallbladder, these findings are critical for acute pancreatitis and clinical correlation is recommended. Transhepatic biliary drain noted. 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 Abnormal liver with area of peripheral hypoechogenicity along the posterior right lobe margin. Suggest further evaluation with contrast CT. Obscured pancreas and aorta due to bowel gas. . Interval development of moderate small bowel dilatation. Transition to relatively decompressed terminal ileum demonstrated indicating this is probably a mechanical bowel obstruction. Pneumatosis suspected within one of the proximal small bowel segments in the upper abdomen. No evidence of perforation. Development of multiloculated ascites with prominent collections contiguous with the caudal end of the right lobe of the liver capsule, Morison's pouch and inferior to the right kidney. Other generalized mild ascites noted as well. Internal/external transhepatic biliary drainage catheter in good position. No imaging evidence for catheter malfunction or biliary obstruction. CT noted. likely internal leakage from internal external drain as it was noted to be backing put few days ago hence placed on drainage bag recommend outpatient f/u with oncology and her GI at primary facility to discuss placement of internal metallic larger drain and remove internal / external drain s/p abd drain placement pending micro (3) Pancreatic cancer Assessment & Plan: Pancreatic cancer, non-resectable, based on patient's info. Had a Abdominal pelvis CT reviewed 1. Appropriately positioned percutaneous left biliary drain with mild intrahepatic biliary ductal dilatation. 2. Ill- defined pancreatic head/proximal body mass, likely corresponding to stated history of pancreatic neoplasm. Please note evaluation of size and vascular involvement of pancreatic masses is incomplete prior examinations and without multiphasic pancreatic protocol. 3. 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 She has already started rx Jim Gates Jan 27, 2019 16:19
--- NOTE | 2019-01-27 19:16 | NUR ---
HAND-OFF: Report given to Oma KEN AND Quin BROWN RN.
[2019-01-27 19:54] VITALS: BP 137/84
--- NOTE | 2019-01-27 21:00 | NUR ---
NURSE NOTES: received pt in bed. AAOx4 in room air. RUQ pigtail drainage bag presents and on abdominal, biliary drain displacement placed via gravity. IV site on R. wrist 24G intact and dry. call light within reach. bed is the lowest position. will continue to provide plan of care.
[2019-01-28 00:05] VITALS: BP 126/71
[2019-01-28 04:02] VITALS: BP 121/78
[2019-01-28] MEDS: Meropenem 1 GM in NS 55 ML IVPB SCH ×3 (05:28→21:52)
[2019-01-28] MEDS: Enoxaparin 60mg Inj SUBQ SCH ×2 (05:29→18:13)
[2019-01-28 06:18] LABS: BASOPHILS % (AUTO) 0.8 % (0.0-2.0); EOSINOPHILS % (AUTO) 0.6 % (0.0-3.0); HEMATOCRIT 33.6 % (37.0-47.0); HEMOGLOBIN 11.4 G/DL (12.0-16.0); LYMPHOCYTES % (AUTO) 5.9 % (20.0-45.0); MEAN CORPUSCULAR VOLUME 94 FL (80-99); MONOCYTES % (AUTO) 10.2 % (1.0-10.0); NEUTROPHILS % (AUTO) 82.5 % (45.0-75.0); PLATELET COUNT 715 K/UL (150-450); RED BLOOD COUNT 3.56 M/UL (4.20-5.40); RED CELL DISTRIBUTION WIDTH 13.9 % (11.6-14.8); WHITE BLOOD COUNT 15.6 K/UL (4.8-10.8)
[2019-01-28 06:28] LABS: ANION GAP 5 mmol/L (5-15); BLOOD UREA NITROGEN 9 mg/dL (7-18); CALCIUM 7.7 MG/DL (8.5-10.1); CARBON DIOXIDE 24 MMOL/L (21-32); CHLORIDE 106 MMOL/L (98-107); CREATININE 1.1 MG/DL (0.55-1.30); POTASSIUM 3.9 MMOL/L (3.5-5.1); SODIUM 135 MMOL/L (136-145)
--- NOTE | 2019-01-28 07:26 | NUR ---
NURSE NOTES: Received report from CAITIE Bertrand and CAITIE Eagle. Patient A&Ox4. Eating breakfast. On room air, no signs of distress or labored breathing. IV intact, patent, and running TKO. Pigtail and biliary drain both intact and draining. Bed in lowest position with call light in reach. Will continue with plan of care.
--- NOTE | 2019-01-28 07:31 | NUR ---
HAND-OFF: Report given to Asiya BLOOD.
[2019-01-28 08:00] VITALS: BP 120/81
--- NOTE | 2019-01-28 09:19 | General Progress Note ---
Assessment/Plan Problem List: (1) SOB (shortness of breath) ICD Codes: R06.02 - Shortness of breath SNOMED: 642326764 (2) Nausea & vomiting ICD Codes: R11.2 - Nausea with vomiting, unspecified SNOMED: 79238820 (3) Malnutrition ICD Codes: E46 - Unspecified protein-calorie malnutrition SNOMED: 74480440 (4) UTI (urinary tract infection) ICD Codes: N39.0 - Urinary tract infection, site not specified SNOMED: 94658694 (5) Abdominal pain ICD Codes: R10.9 - Unspecified abdominal pain SNOMED: 20329247 (6) Biliary drain displacement ICD Codes: T85.520A - Displacement of bile duct prosthesis, initial encounter SNOMED: 070204497 (7) Pancreatic cancer ICD Codes: C25.9 - Malignant neoplasm of pancreas, unspecified SNOMED: 552050972 Status: stable, progressing Assessment/Plan: pt diet pain control abx cbc bmp am dc plan snf Subjective Constitutional: Reports: weakness Allergies: Coded Allergies: No Known Allergies (Unverified , 01/12/19) All Systems: reviewed and negative except above Subjective sl nausea abd pain Objective Last 24 Hour Vital Signs Date Time Temp Pulse Resp B/P (MAP) Pulse Ox O2 Delivery O2 Flow Rate FiO2 01/28/19 04:02 97.8 73 18 121/78 (92) 97 01/28/19 00:05 97.7 79 18 126/71 (89) 98 01/27/19 21:00 Room Air 01/27/19 19:54 98.0 86 18 137/84 (101) 01/27/19 16:00 97.7 78 18 139/81 (100) 96 01/27/19 12:00 97.9 86 18 131/77 (95) 98 01/27/19 11:23 76 35 Intake and Output 01/27/19 01/28/19 18:59 06:59 Intake Total 955 ml 400 ml Output Total 350 ml 270 ml Balance 605 ml 130 ml Intake Oral 600 ml 300 ml IV Total 355 ml 100 ml Drainage Total 0 ml 20 ml Other 350 ml 250 ml # Voids 5 2 # Bowel Movements 3 1 Laboratory Tests 01/27/19 13:10: Folate 94.4H 01/27/19 13:46: Body Fluid Source Abdomen, Body Fluid Volume 50, Body Fluid Appearance Turbid, Body Fluid RBC 437.5, Body Fluid Total Nucleated Cells 16673, Body Fluid Polynuclear WBCs (%) 92, Body Fluid Mononuclear WBCs (%) 9, Body Fluid Mesothelial Cells (%) 0 01/28/19 05:52: White Blood Count 15.6H, Red Blood Count 3.56L, Hemoglobin 11.4L, Hematocrit 33.6L, Mean Corpuscular Volume 94, Mean Corpuscular Hemoglobin 32.1H, Mean Corpuscular Hemoglobin Concent 34.1, Red Cell Distribution Width 13.9, Platelet Count 715H, Mean Platelet Volume 6.2L, Neutrophils (%) (Auto) 82.5H, Lymphocytes (%) (Auto) 5.9L, Monocytes (%) (Auto) 10.2H, Eosinophils (%) (Auto) 0.6, Basophils (%) (Auto) 0.8, Sodium Level 135L, Potassium Level 3.9, Chloride Level 106, Carbon Dioxide Level 24, Anion Gap 5, Blood Urea Nitrogen 9, Creatinine 1.1, Estimat Glomerular Filtration Rate 50.3, Glucose Level 80, Calcium Level 7.7L Height (Feet): 5 Height (Inches): 3.00 Weight (Pounds): 164 General Appearance: lethargic EENT: normal ENT inspection Neck: normal alignment Cardiovascular: normal peripheral pulses, normal rate, regular rhythm Respiratory/Chest: chest wall non-tender, lungs clear, normal breath sounds Abdomen: normal bowel sounds, non tender, soft Extremities: normal inspection Edema: no edema noted Arm (L), no edema noted Arm (R), no edema noted Leg (L), no edema noted Leg (R), no edema noted Pedal (L), no edema noted Pedal (R), no edema noted Generalized Neurologic: motor weakness Skin: normal pigmentation, warm/dry Dominic Lukemy Lilly MEI Jan 28, 2019 09:19
--- NOTE | 2019-01-28 09:41 | General Progress Note ---
Assessment/Plan Assessment/Plan: (1) Intractable abdominal pain (2) Pancreatic cancer We will continue the Neurontin, Dilaudid and Fentanyl patch D/w Dr. Gonzales and he concurred. Subjective Date patient seen: Jan 28, 2019 Time patient seen: 09:00 - am Allergies: Coded Allergies: No Known Allergies (Unverified , 01/12/19) Subjective REVIEW OF SYSTEMS: Denies rash, fever, chills, sweating, dizziness, drowsiness, blurred vision, sore throat, change in weight. No shortness of breath or chest pain. No bowel or bladder incontinence. She is complaining of abdominal pain. SUBJECTIVE: Patient is sitting up. Reports pain is at a mild level. Using 2 doses of Dilaudid for breakthrough in the last 24hrs. No new complaints at this time Objective Last 24 Hour Vital Signs Date Time Temp Pulse Resp B/P (MAP) Pulse Ox O2 Delivery O2 Flow Rate FiO2 01/28/19 04:02 97.8 73 18 121/78 (92) 97 01/28/19 00:05 97.7 79 18 126/71 (89) 98 01/27/19 21:00 Room Air 01/27/19 19:54 98.0 86 18 137/84 (101) 01/27/19 16:00 97.7 78 18 139/81 (100) 96 01/27/19 12:00 97.9 86 18 131/77 (95) 98 01/27/19 11:23 76 35 Intake and Output 01/27/19 01/28/19 18:59 06:59 Intake Total 955 ml 400 ml Output Total 350 ml 270 ml Balance 605 ml 130 ml Intake Oral 600 ml 300 ml IV Total 355 ml 100 ml Drainage Total 0 ml 20 ml Other 350 ml 250 ml # Voids 5 2 # Bowel Movements 3 1 Laboratory Tests 01/27/19 13:10: Folate 94.4H 01/27/19 13:46: Body Fluid Source Abdomen, Body Fluid Volume 50, Body Fluid Appearance Turbid, Body Fluid RBC 437.5, Body Fluid Total Nucleated Cells 56508, Body Fluid Polynuclear WBCs (%) 92, Body Fluid Mononuclear WBCs (%) 9, Body Fluid Mesothelial Cells (%) 0 01/28/19 05:52: White Blood Count 15.6H, Red Blood Count 3.56L, Hemoglobin 11.4L, Hematocrit 33.6L, Mean Corpuscular Volume 94, Mean Corpuscular Hemoglobin 32.1H, Mean Corpuscular Hemoglobin Concent 34.1, Red Cell Distribution Width 13.9, Platelet Count 715H, Mean Platelet Volume 6.2L, Neutrophils (%) (Auto) 82.5H, Lymphocytes (%) (Auto) 5.9L, Monocytes (%) (Auto) 10.2H, Eosinophils (%) (Auto) 0.6, Basophils (%) (Auto) 0.8, Sodium Level 135L, Potassium Level 3.9, Chloride Level 106, Carbon Dioxide Level 24, Anion Gap 5, Blood Urea Nitrogen 9, Creatinine 1.1, Estimat Glomerular Filtration Rate 50.3, Glucose Level 80, Calcium Level 7.7L Height (Feet): 5 Height (Inches): 3.00 Weight (Pounds): 164 Objective GENERAL: Alert, awake, and oriented. LUNGS: Clear bilaterally. HEART: S1, S2 regular. ABDOMEN: Tenderness to palpation with biliary stent noted. BACK: Range of motion is decreased in flexion, extension. EXTREMITIES: No cyanosis. No clubbing. No edema. NEURO: No changes. Doug Reid Jan 28, 2019 09:41
--- NOTE | 2019-01-28 10:13 | GI Progress Note ---
Assessment/Plan Problems: (1) Pancreatic cancer ICD Codes: C25.9 - Malignant neoplasm of pancreas, unspecified SNOMED: 484759846 (2) Biliary drain displacement ICD Codes: T85.520A - Displacement of bile duct prosthesis, initial encounter SNOMED: 363666825 (3) Abdominal pain ICD Codes: R10.9 - Unspecified abdominal pain SNOMED: 57089918 Status: unchanged Status Narrative Discussed with Dr. Rocha. Assessment/Plan Abdominal pelvis CT reviewed 1. Appropriately positioned percutaneous left biliary drain with mild intrahepatic biliary ductal dilatation. 2. Ill-defined pancreatic head/proximal body mass, likely corresponding to stated history of pancreatic neoplasm. Please note evaluation of size and vascular involvement of pancreatic masses is incomplete prior examinations and without multiphasic pancreatic protocol. 3. 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 SMV confluence is not visualized. 4. Color wall thickening with pericholecystic fluid; in the absence of distended gallbladder, these findings are critical for acute pancreatitis and clinical correlation is recommended. No plans for GI procedures at this time. Symptomatic treatment bowel regime, colace + miralax. Relistor q weekly. surgical recommendations, biliary drain placed to gravity. Follow-up pain management recommendations ppi Trend LFTs advance diet We will follow-up The patient was seen and examined at bedside and all new and available data was reviewed in the patients chart. I agree with the above findings, impression and plan. (Patient seen earlier today. Signature stamp does not reflect patient encounter time.). - Indra Rocha MD Subjective Subjective Patient still complains of abdominal pain, improved Objective Last 24 Hour Vital Signs Date Time Temp Pulse Resp B/P (MAP) Pulse Ox O2 Delivery O2 Flow Rate FiO2 01/28/19 04:02 97.8 73 18 121/78 (92) 97 01/28/19 00:05 97.7 79 18 126/71 (89) 98 01/27/19 21:00 Room Air 01/27/19 19:54 98.0 86 18 137/84 (101) 01/27/19 16:00 97.7 78 18 139/81 (100) 96 01/27/19 12:00 97.9 86 18 131/77 (95) 98 01/27/19 11:23 76 35 Intake and Output 01/27/19 01/28/19 18:59 06:59 Intake Total 955 ml 400 ml Output Total 350 ml 270 ml Balance 605 ml 130 ml Intake Oral 600 ml 300 ml IV Total 355 ml 100 ml Drainage Total 0 ml 20 ml Other 350 ml 250 ml # Voids 5 2 # Bowel Movements 3 1 Laboratory Tests Test 01/27/19 13:10 01/27/19 13:46 01/28/19 05:52 Folate 94.4 NG/ML (8.6-58.9) H Body Fluid Source Abdomen Body Fluid Volume 50 mL Body Fluid Appearance Turbid (Clear) Body Fluid RBC 437.5 /CUMM Body Fluid Total Nucleated Cells 61660 /CUMM Body Fluid Polynuclear WBCs (%) 92 % Body Fluid Mononuclear WBCs (%) 9 % Body Fluid Mesothelial Cells (%) 0 % White Blood Count 15.6 K/UL (4.8-10.8) H Red Blood Count 3.56 M/UL (4.20-5.40) L Hemoglobin 11.4 G/DL (12.0-16.0) L Hematocrit 33.6 % (37.0-47.0) L Mean Corpuscular Volume 94 FL (80-99) Mean Corpuscular Hemoglobin 32.1 PG (27.0-31.0) H Mean Corpuscular Hemoglobin Concent 34.1 G/DL (32.0-36.0) Red Cell Distribution Width 13.9 % (11.6-14.8) Platelet Count 715 K/UL (150-450) H Mean Platelet Volume 6.2 FL (6.5-10.1) L Neutrophils (%) (Auto) 82.5 % (45.0-75.0) H Lymphocytes (%) (Auto) 5.9 % (20.0-45.0) L Monocytes (%) (Auto) 10.2 % (1.0-10.0) H Eosinophils (%) (Auto) 0.6 % (0.0-3.0) Basophils (%) (Auto) 0.8 % (0.0-2.0) Sodium Level 135 MMOL/L (136-145) L Potassium Level 3.9 MMOL/L (3.5-5.1) Chloride Level 106 MMOL/L (98-107) Carbon Dioxide Level 24 MMOL/L (21-32) Anion Gap 5 mmol/L (5-15) Blood Urea Nitrogen 9 mg/dL (7-18) Creatinine 1.1 MG/DL (0.55-1.30) Estimat Glomerular Filtration Rate 50.3 mL/min (>60) Glucose Level 80 MG/DL (74-106) Calcium Level 7.7 MG/DL (8.5-10.1) L Microbiology Date/Time Source Procedure Growth Status 01/27/19 13:46 Abdominal Fluid Gram Stain - Final Resulted 01/27/19 13:46 Abdominal Fluid Aerobic Culture - Preliminary NO GROWTH Resulted 01/27/19 13:46 Abdominal Fluid Anaerobic Culture - Preliminary NO GROWTH Resulted Height (Feet): 5 Height (Inches): 3.00 Weight (Pounds): 164 General Appearance: WD/WN, no apparent distress, alert Cardiovascular: normal rate Respiratory/Chest: normal breath sounds, no respiratory distress Abdominal Exam: normal bowel sounds, non tender, soft Extremities: normal range of motion, non-tender Jeff Rueda NP Jan 28, 2019 10:13
--- NOTE | 2019-01-28 10:16 | Nephrology Progress Note ---
Assessment/Plan Problem List: (1) Electrolyte abnormality (2) Pancreatic cancer (3) Biliary drain displacement (4) Abdominal pain (5) Malnutrition Assessment HypoKalemia HypoNatremia Abdominal pain. Nausea. Vomiting. UTI. Pancreatic cancer. Biliary drain displacement Malnutrition. 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 Subjective ROS Limited/Unobtainable: No Constitutional: Reports: malaise Objective Objective Last 24 Hour Vital Signs Date Time Temp Pulse Resp B/P (MAP) Pulse Ox O2 Delivery O2 Flow Rate FiO2 01/28/19 04:02 97.8 73 18 121/78 (92) 97 01/28/19 00:05 97.7 79 18 126/71 (89) 98 01/27/19 21:00 Room Air 01/27/19 19:54 98.0 86 18 137/84 (101) 01/27/19 16:00 97.7 78 18 139/81 (100) 96 01/27/19 12:00 97.9 86 18 131/77 (95) 98 01/27/19 11:23 76 35 Intake and Output 01/27/19 01/28/19 18:59 06:59 Intake Total 955 ml 400 ml Output Total 350 ml 270 ml Balance 605 ml 130 ml Intake Oral 600 ml 300 ml IV Total 355 ml 100 ml Drainage Total 0 ml 20 ml Other 350 ml 250 ml # Voids 5 2 # Bowel Movements 3 1 Laboratory Tests 01/27/19 13:10: Folate 94.4H 01/27/19 13:46: Body Fluid Source Abdomen, Body Fluid Volume 50, Body Fluid Appearance Turbid, Body Fluid RBC 437.5, Body Fluid Total Nucleated Cells 98671, Body Fluid Polynuclear WBCs (%) 92, Body Fluid Mononuclear WBCs (%) 9, Body Fluid Mesothelial Cells (%) 0 01/28/19 05:52: White Blood Count 15.6H, Red Blood Count 3.56L, Hemoglobin 11.4L, Hematocrit 33.6L, Mean Corpuscular Volume 94, Mean Corpuscular Hemoglobin 32.1H, Mean Corpuscular Hemoglobin Concent 34.1, Red Cell Distribution Width 13.9, Platelet Count 715H, Mean Platelet Volume 6.2L, Neutrophils (%) (Auto) 82.5H, Lymphocytes (%) (Auto) 5.9L, Monocytes (%) (Auto) 10.2H, Eosinophils (%) (Auto) 0.6, Basophils (%) (Auto) 0.8, Sodium Level 135L, Potassium Level 3.9, Chloride Level 106, Carbon Dioxide Level 24, Anion Gap 5, Blood Urea Nitrogen 9, Creatinine 1.1, Estimat Glomerular Filtration Rate 50.3, Glucose Level 80, Calcium Level 7.7L Height (Feet): 5 Height (Inches): 3.00 Weight (Pounds): 164 General Appearance: no apparent distress Objective no change Kapil Turcios MD Jan 28, 2019 10:16
[2019-01-28] MEDS: HYDROmorphone 4mg tab ORAL PRN ×3 (10:29→21:51)
--- NOTE | 2019-01-28 11:54 | NUR ---
*-* INSURANCE *-* ALL AVAILABLE CLINICALS HAVE BEEN FAXED TO: REF#[id number] - FOR TRACKING PURPOSES THIS IS SHARED RISK NO CM ASSIGNED PH#[phone] FAX#[phone] REVIEWS/CLINICALS & [facility] TRACKING#[id number] CM: TAMMY PH#[phone] EXT [phone] FAX#[phone] REVIEWS/CLINICALS I have spoke to tammy and he has been receiving clinicals on a daily basis and is working on placement...
[2019-01-28] MEDS: fentaNYL Destruction MISC SCH (11:59)
[2019-01-28 12:00] VITALS: BP 124/83
--- NOTE | 2019-01-28 13:30 | NUR ---
PT NOTE Multiple attempts made to see patient for PT treatment. Patient declining to participate with PT, states "I'm not in the mood, I have a lot of things to do." Will follow up tomorrow.
--- NOTE | 2019-01-28 13:42 | NUR ---
DTP OPERATORMANAGER COMMODITIES SI: ABDOMINAL PAIN, S/P PARACENTESIS T. 97.3 HR 89 RR 19 B/P 124/83 WBC 15.6 NA 135 IS: MEROPENEM IV PROTONIX NEURONTIN LOVENOX SUBC MED/SURG STATUS
--- NOTE | 2019-01-28 14:12 | NUR ---
P.T WEEKLY PROGRESS NOTES: Patient being seen by PT for therapeutic exercises, ADL/functional mobility training, balance training and gait training. Patient continues to be limited by pain, fatigue and weakness. Patient currently requires CGA/min assist for bed mobility and for transfers. Patient has increased her ambulation distance/endurance up to 120 ft from 10 ft with the use of a FWW. Patient will continue to benefit from skilled inpatient PT plan of care to progress level of activity as tolerated. Recommend SNF for further rehab intervention vs home with family/caregiver assistance and home PT at discharge once medically cleared by .
[2019-01-28 16:00] VITALS: BP 121/76
--- NOTE | 2019-01-28 16:34 | Infectious Diseases Prog Note ---
Assessment/Plan Assessment/Plan Fever 01/13, SP Leukocytosis, fluctuating 01/14 bcx ng tumor related? Ileus related? biloma related? atelectasis? 01/24 Indium scan: Diffusely abnormal bowel uptake. Given findings on recent CT scan, this most likely represents enteritis, most likely infectious. Abnormal uptake in the face or upper neck to the left of midline, exact location uncertain. Consider neck CT for better characterization. Mildly prominent pulmonary uptake, significance doubted. On further review the images, activity in the right midabdomen is greater than would be accounted for acute spine hepatic activity, and there is significant activity inferior to the right lobe of the liver in the anterior abdomen. This correlates with a large loculated fluid collection demonstrated on recent CT scan of 01/20/2019, and may indicate infection of this collection. The smaller subcapsular collection in the posterior right hepatic lobe is difficult to differentiate from normal liver activity on this exam, so it is not possible to assess for the presence or absence of abnormal activity in this. 01/27 US: Aspiration of posterior hepatic subcapsular collection, yielding serous fluid which does not appear grossly infected. No drainage catheter placed , therefore, but a specimen was sent to the lab for analysis. Placement of 8.5 Italian pigtail drainage catheter in anterior right lower quadrant intraperitoneal collection. This yielded borderline purulent appearing body brown fluid. Specimen sent to lab for analysis. 01/27 fluid: 76K WBC(92% PMN). cx: P PNA, CAP? -CXR: Patchy consolidation in the right lower lung, concerning for pneumonia. Mild pulmonary vascular congestion. -flu swab negative urine legionella antigen negative Abdominal pain Pancreatitis? lipase negative 01/12 CT abd/p: Appropriately positioned percutaneous left biliary drain with mild intrahepatic biliary ductal dilatation. Ill-defined pancreatic head/ proximal body mass, likely corresponding to stated history of pancreatic neoplasm. Please note evaluation of size and vascular involvement of pancreatic masses is incomplete prior examinations and without multiphasic pancreatic protocol. 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 SMV confluence is not visualized. Gallbladder wall thickening with pericholecystic fluid; in the absence of distended gallbladder, these findings are critical for acute pancreatitis and clinical correlation is recommended. 01/19 US Abd: Transhepatic biliary drain noted. 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 Abnormal liver with area of peripheral hypoechogenicity along the posterior right lobe margin. Suggest further evaluation with contrast CT. Obscured pancreas and aorta due to bowel gas. Trace ascites 01/20 CT A/P: Interval development of moderate small bowel dilatation. Transition to relatively decompressed terminal ileum demonstrated indicating this is probably a mechanical bowel obstruction. Pneumatosis suspected within one of the proximal small bowel segments in the upper abdomen. No evidence of perforation. Development of multiloculated ascites with prominent collections contiguous with the caudal end of the right lobe of the liver capsule, Morison's pouch and inferior to the right kidney. Other generalized mild ascites noted as well. Internal/external transhepatic biliary drainage catheter in good position. No imaging evidence for catheter malfunction or biliary obstruction. Right basilar consolidation versus atelectasis. Correlate for pneumonia. Trace bilateral pleural effusions. Anasarca recently diagnosed pancreatic CA 11/2018 - s/p biliary drain 1 week STAFF INTERNIST OFFICE BASED ONLY at [facility] -sp 1st chemotherapy treatment 01/10/19 tobacco abuse Plan: Meropenem #4...f/u fluid analysis from drainage 01/25 SP Ceftriaxone #3, flagyl #1, vancomycin #11 01/22 SP Azithromycin #7 01/23 SP Zosyn #8 01/17 DC Tamiflu #2 -f/u cx -Monitor CBC/CMP, temperatures -f/u Bcx x2 -aspiration precautions Thank you for this consultation. Will continue to follow along with you. Subjective Allergies: Coded Allergies: No Known Allergies (Unverified , 01/12/19) Subjective Afebrile. WBC better. Pt is upset. Asking to leave. Objective Vital Signs Last 24 Hour Vital Signs Date Time Temp Pulse Resp B/P (MAP) Pulse Ox O2 Delivery O2 Flow Rate FiO2 01/28/19 12:00 98.0 89 18 124/83 (97) 96 01/28/19 09:00 Room Air 01/28/19 08:00 97.3 91 19 120/81 (94) 97 01/28/19 04:02 97.8 73 18 121/78 (92) 97 01/28/19 00:05 97.7 79 18 126/71 (89) 98 01/27/19 21:00 Room Air 01/27/19 19:54 98.0 86 18 137/84 (101) Height (Feet): 5 Height (Inches): 3.00 Weight (Pounds): 164 Objective Gen: NAD CV: RRR Resp: RRR Abd: hypoactive BS+. Diffusely TTP but worse RUQ. Ext: no edema Neuro: alert. Microbiology Date/Time Source Procedure Growth Status 01/27/19 13:46 Abdominal Fluid Gram Stain - Final Resulted 01/27/19 13:46 Abdominal Fluid Aerobic Culture - Preliminary NO GROWTH Resulted 01/27/19 13:46 Abdominal Fluid Anaerobic Culture - Preliminary NO GROWTH Resulted Laboratory Tests Test 01/28/19 05:52 White Blood Count 15.6 K/UL (4.8-10.8) H Red Blood Count 3.56 M/UL (4.20-5.40) L Hemoglobin 11.4 G/DL (12.0-16.0) L Hematocrit 33.6 % (37.0-47.0) L Mean Corpuscular Volume 94 FL (80-99) Mean Corpuscular Hemoglobin 32.1 PG (27.0-31.0) H Mean Corpuscular Hemoglobin Concent 34.1 G/DL (32.0-36.0) Red Cell Distribution Width 13.9 % (11.6-14.8) Platelet Count 715 K/UL (150-450) H Mean Platelet Volume 6.2 FL (6.5-10.1) L Neutrophils (%) (Auto) 82.5 % (45.0-75.0) H Lymphocytes (%) (Auto) 5.9 % (20.0-45.0) L Monocytes (%) (Auto) 10.2 % (1.0-10.0) H Eosinophils (%) (Auto) 0.6 % (0.0-3.0) Basophils (%) (Auto) 0.8 % (0.0-2.0) Sodium Level 135 MMOL/L (136-145) L Potassium Level 3.9 MMOL/L (3.5-5.1) Chloride Level 106 MMOL/L (98-107) Carbon Dioxide Level 24 MMOL/L (21-32) Anion Gap 5 mmol/L (5-15) Blood Urea Nitrogen 9 mg/dL (7-18) Creatinine 1.1 MG/DL (0.55-1.30) Estimat Glomerular Filtration Rate 50.3 mL/min (>60) Glucose Level 80 MG/DL (74-106) Calcium Level 7.7 MG/DL (8.5-10.1) L Current Medications Medications (Trade) Dose Ordered Sig/Zuleima Route PRN Reason Start Time Stop Time Status Last Admin Dose Admin Acetaminophen (Tylenol) 650 mg Q8H PRN ORAL Mild Pain/Temp > 100.5 01/12/19 17:30 02/11/19 17:29 01/13/19 17:27 Bisacodyl (Dulcolax) 10 mg BIDPRN PRN RECTAL Constipation 01/16/19 07:45 02/15/19 07:44 01/19/19 18:34 Dextrose (Dextrose 50%) 25 ml Q30M PRN IV Hypoglycemia 01/12/19 13:45 02/11/19 13:44 Dextrose (Dextrose 50%) 50 ml Q30M PRN IV Hypoglycemia 01/12/19 13:45 02/11/19 13:44 Enoxaparin Sodium (Lovenox) 60 mg Q12HR@0600,1800 SUBQ 01/20/19 18:00 02/19/19 17:59 01/28/19 05:29 Fentanyl (Duragesic) 1 patch Q72H TDERMAL 01/25/19 12:00 02/01/19 11:59 01/28/19 12:40 Folic Acid (Folate) 5 mg DAILY ORAL 01/17/19 09:45 02/16/19 09:44 01/28/19 09:05 Gabapentin (Neurontin) 300 mg THREE TIMES A DAY ORAL 01/19/19 18:00 02/18/19 17:59 01/28/19 13:58 Hydromorphone HCl (Dilaudid) 4 mg Q4H PRN ORAL severe breakthrough pain 01/24/19 10:12 01/31/19 10:11 01/28/19 14:53 Meropenem 1 gm/ Sodium Chloride 55 ml @ 110 mls/hr Q8HR IVPB 01/25/19 22:00 01/30/19 21:59 01/28/19 13:58 Methylnaltrexone Cashion (Relistor) 12 mg ONCE A WEEK SUBQ 02/01/19 09:00 03/03/19 08:59 Miscellaneous Medication (fentaNYL Destruction) 1 ea Q72H MISC 01/25/19 11:59 02/24/19 11:58 01/28/19 11:59 Naloxone HCl (Narcan) 0.1 mg Q5M PRN IV Sedation scale 3 or 4 01/24/19 09:00 02/23/19 08:54 Ondansetron HCl (Zofran) 4 mg Q6H PRN IVP Nausea & Vomiting 01/12/19 13:45 02/11/19 13:44 01/26/19 08:08 Pantoprazole (Protonix) 40 mg EVERY 12 HOURS ORAL 01/27/19 21:00 02/26/19 20:59 01/28/19 09:05 Polyethylene Glycol (Miralax) 17 gm BEDTIME PRN ORAL constipation 01/22/19 10:30 02/15/19 20:59 Potassium Chloride (K-Dur) 40 meq TWICE A DAY ORAL 01/27/19 10:00 02/26/19 09:59 01/28/19 09:05 Simethicone (Mylicon) 80 mg BIDPRN PRN ORAL gas 01/18/19 21:45 02/17/19 21:44 01/21/19 14:38 Zolpidem Tartrate (Ambien) 5 mg HSPRN PRN ORAL Insomnia 01/26/19 21:00 02/02/19 20:59 Catalina Kirby MD Jan 28, 2019 16:34
--- NOTE | 2019-01-28 16:38 | NUR ---
*-* INSURANCE *-* ALL AVAILABLE CLINICALS HAVE BEEN FAXED TO: REF#[id number] - FOR TRACKING PURPOSES THIS IS SHARED RISK NO CM ASSIGNED PH#[phone] FAX#[phone] REVIEWS/CLINICALS & [facility] TRACKING#[id number] CM: TAMMY PH#[phone] EXT [id number] FAX#[phone] REVIEWS/CLINICALS I have spoke to tammy and he has been receiving clinicals on a daily basis and is working on placement...
--- NOTE | 2019-01-28 19:28 | NUR ---
HAND-OFF: Report given to CAITIE Brown.
--- NOTE | 2019-01-28 19:38 | NUR ---
NURSE NOTES: Received report from Asiya BLOOD. Patient A&Ox4. Pt awake, alert and OX4. Breathing on room air, no signs of acute distress noted. IV intact, patent and asymptomatic. Pigtail and biliary drain both intact and draining. Bed in lowest position with call light in reach. Will continue to monitor the pt.
[2019-01-28 20:00] VITALS: BP 131/78
--- NOTE | 2019-01-28 22:30 | Surgery Progress Note ---
Surgery Progress Note Subjective Additional Comments leukocytosis improving drain output stable wants to resume chemo vinny micro noted and ngtd Objective Last 24 Hour Vital Signs Date Time Temp Pulse Resp B/P (MAP) Pulse Ox O2 Delivery O2 Flow Rate FiO2 01/28/19 16:00 98.8 89 17 121/76 (91) 98 01/28/19 12:00 98.0 89 18 124/83 (97) 96 01/28/19 09:00 Room Air 01/28/19 08:00 97.3 91 19 120/81 (94) 97 01/28/19 04:02 97.8 73 18 121/78 (92) 97 01/28/19 00:05 97.7 79 18 126/71 (89) 98 I&O Intake and Output 01/27/19 01/28/19 19:00 07:00 Intake Total 1005 ml 300 ml Output Total 350 ml 270 ml Balance 655 ml 30 ml Intake Oral 600 ml 300 ml IV Total 405 ml Drainage Total 0 ml 20 ml Other 350 ml 250 ml # Voids 5 2 # Bowel Movements 3 1 Dressing: dry Wound: clean Drains: other Cardiovascular: RSR Respiratory: clear Abdomen: soft, flat, non-tender, present bowel sounds Extremities: no tenderness, no cyanosis Laboratory Tests Test 01/28/19 05:52 White Blood Count 15.6 K/UL (4.8-10.8) H Red Blood Count 3.56 M/UL (4.20-5.40) L Hemoglobin 11.4 G/DL (12.0-16.0) L Hematocrit 33.6 % (37.0-47.0) L Mean Corpuscular Volume 94 FL (80-99) Mean Corpuscular Hemoglobin 32.1 PG (27.0-31.0) H Mean Corpuscular Hemoglobin Concent 34.1 G/DL (32.0-36.0) Red Cell Distribution Width 13.9 % (11.6-14.8) Platelet Count 715 K/UL (150-450) H Mean Platelet Volume 6.2 FL (6.5-10.1) L Neutrophils (%) (Auto) 82.5 % (45.0-75.0) H Lymphocytes (%) (Auto) 5.9 % (20.0-45.0) L Monocytes (%) (Auto) 10.2 % (1.0-10.0) H Eosinophils (%) (Auto) 0.6 % (0.0-3.0) Basophils (%) (Auto) 0.8 % (0.0-2.0) Sodium Level 135 MMOL/L (136-145) L Potassium Level 3.9 MMOL/L (3.5-5.1) Chloride Level 106 MMOL/L (98-107) Carbon Dioxide Level 24 MMOL/L (21-32) Anion Gap 5 mmol/L (5-15) Blood Urea Nitrogen 9 mg/dL (7-18) Creatinine 1.1 MG/DL (0.55-1.30) Estimat Glomerular Filtration Rate 50.3 mL/min (>60) Glucose Level 80 MG/DL (74-106) Calcium Level 7.7 MG/DL (8.5-10.1) L Plan Problems: (1) Abdominal pain Assessment & Plan: 63-year-old female patient with history of recently diagnosed pancreatic cancer in November 2018 presented to the emergency room at [facility] with complaint of abdominal pain for approximately 1 hour. Patient is status post a biliary drain placement at [facility] approximately 1 week ago. She reported that she had a first treatment of chemotherapy this past Thursday. The patient denied any nausea vomiting, denies any constipation or diarrhea. She states her pain medication was unable to relieve her pain. no fever or chills. labs as below. C Tnoted. surgery called to assist with care and management. tube checked Impression: Diffusely abnormal bowel uptake. Given findings on recent CT scan, this most likely represents enteritis, most likely infectious. Abnormal uptake in the face or upper neck to the left of midline, exact location uncertain. Consider neck CT for better characterization Mildly prominent pulmonary uptake, significance doubted okay for diet tube to drain IV abx d/c planning for SNF f/u with pcp / onc outpatient stable otherwise from surgical standpoint no acute surgical intervention planned Probably has extensive tumor burden given interventions and findings noted. No surgical recommendation at this time. Possible that fluid collection in case in the abdomen infected but to operate on this would be ill advised at this time and patient's current condition. Continue with antibiotics iv fluids trend labs will monitor and follow with exam thank you (2) Biliary drain displacement Assessment & Plan: Daughter was able to inform me with a lot of history. Seems patient unresectable initially and attempted biliary drain placed endoscopically but unsuccessful. A external biliary drain was placed by radiology. Would patient was getting her Port-A-Cath placed a another radiologist felt he could place a internal/external biliary drain and he was able to successfully place a internal/external biliary drain. Had the trade Since. Fell off and she has been without it to drainage recently. In evaluating the trade she has some bilious output from the drain and on imaging drain looks to be appropriately placed. Labs reviewed stable. drain placed to gravity as leaking Drain putting out a ton since placed on 2 bag IMPRESSION: 1. Appropriately positioned percutaneous left biliary drain with mild intrahepatic biliary ductal dilatation. 2. Ill-defined pancreatic head/proximal body mass, likely corresponding to stated history of pancreatic neoplasm. Please note evaluation of size and vascular involvement of pancreatic masses is incomplete prior examinations and without multiphasic pancreatic protocol. 3. 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 SMV confluence is not visualized. 4. Color wall thickening with pericholecystic fluid; in the absence of distended gallbladder, these findings are critical for acute pancreatitis and clinical correlation is recommended. Transhepatic biliary drain noted. 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 Abnormal liver with area of peripheral hypoechogenicity along the posterior right lobe margin. Suggest further evaluation with contrast CT. Obscured pancreas and aorta due to bowel gas. . Interval development of moderate small bowel dilatation. Transition to relatively decompressed terminal ileum demonstrated indicating this is probably a mechanical bowel obstruction. Pneumatosis suspected within one of the proximal small bowel segments in the upper abdomen. No evidence of perforation. Development of multiloculated ascites with prominent collections contiguous with the caudal end of the right lobe of the liver capsule, Morison's pouch and inferior to the right kidney. Other generalized mild ascites noted as well. Internal/external transhepatic biliary drainage catheter in good position. No imaging evidence for catheter malfunction or biliary obstruction. CT noted. likely internal leakage from internal external drain as it was noted to be backing put few days ago hence placed on drainage bag recommend outpatient f/u with oncology and her GI at primary facility to discuss placement of internal metallic larger drain and remove internal / external drain s/p abd drain placement pending micro (3) Pancreatic cancer Assessment & Plan: Pancreatic cancer, non-resectable, based on patient's info. Had a Abdominal pelvis CT reviewed 1. Appropriately positioned percutaneous left biliary drain with mild intrahepatic biliary ductal dilatation. 2. Ill- defined pancreatic head/proximal body mass, likely corresponding to stated history of pancreatic neoplasm. Please note evaluation of size and vascular involvement of pancreatic masses is incomplete prior examinations and without multiphasic pancreatic protocol. 3. 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 She has already started rx Jim Gates Jan 28, 2019 22:30
[2019-01-28] MEDS ORDERED: Tubing IV Secondary IV ONE (22:49)
[2019-01-29] VITALS: BP 113/67
[2019-01-29] MEDS: HYDROmorphone 4mg tab ORAL PRN ×3 (03:54→20:57)
[2019-01-29 04:00] VITALS: BP 123/85
[2019-01-29] MEDS: Meropenem 1 GM in NS 55 ML IVPB SCH ×3 (05:08→21:39)
[2019-01-29] MEDS: Enoxaparin 60mg Inj SUBQ SCH ×2 (05:11→17:19)
--- NOTE | 2019-01-29 07:11 | NUR ---
HAND-OFF: Report given to CAITIE Washington.
[2019-01-29 07:27] LABS: HEMATOCRIT 34.6 % (37.0-47.0); HEMOGLOBIN 11.7 G/DL (12.0-16.0); MEAN CORPUSCULAR VOLUME 93 FL (80-99); PLATELET COUNT 580 K/UL (150-450); RED BLOOD COUNT 3.73 M/UL (4.20-5.40); RED CELL DISTRIBUTION WIDTH 14.1 % (11.6-14.8); WHITE BLOOD COUNT 20.6 K/UL (4.8-10.8)
[2019-01-29 07:30] LABS: ANION GAP 11 mmol/L (5-15); BLOOD UREA NITROGEN 10 mg/dL (7-18); CALCIUM 7.9 MG/DL (8.5-10.1); CARBON DIOXIDE 20 MMOL/L (21-32); CHLORIDE 103 MMOL/L (98-107); POTASSIUM 4.5 MMOL/L (3.5-5.1); SODIUM 133 MMOL/L (136-145)
[2019-01-29 07:47] VITALS: BP 114/85
--- NOTE | 2019-01-29 07:50 | NUR ---
NURSE NOTES: received pt awake alert, no distress. call light within reach. will monitor. no c/o pain
--- NOTE | 2019-01-29 08:09 | General Progress Note ---
Assessment/Plan Status: unchanged Assessment/Plan: (1) Pancreatic cancer ICD Codes: C25.9 - Malignant neoplasm of pancreas, unspecified SNOMED: 441653872 (2) Biliary drain displacement ICD Codes: T85.520A - Displacement of bile duct prosthesis, initial encounter SNOMED: 518908455 (3) Abdominal pain ICD Codes: R10.9 - Unspecified abdominal pain SNOMED: 38004171 Status: unchanged Status Narrative Discussed with Dr. Rocha Assessment/Plan Abdominal pelvis CT reviewed 1. Appropriately positioned percutaneous left biliary drain with mild intrahepatic biliary ductal dilatation. 2. Ill-defined pancreatic head/proximal body mass, likely corresponding to stated history of pancreatic neoplasm. Please note evaluation of size and vascular involvement of pancreatic masses is incomplete prior examinations and without multiphasic pancreatic protocol. 3. 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 SMV confluence is not visualized. 4. Color wall thickening with pericholecystic fluid; in the absence of distended gallbladder, these findings are critical for acute pancreatitis and clinical correlation is recommended. No plans for GI procedures at this time. Symptomatic treatment surgical recommendations, no interventions at this time Follow-up pain management recommendations ppi Trend LFTs We will follow-up Subjective Allergies: Coded Allergies: No Known Allergies (Unverified , 01/12/19) Subjective constipated Objective Last 24 Hour Vital Signs Date Time Temp Pulse Resp B/P (MAP) Pulse Ox O2 Delivery O2 Flow Rate FiO2 01/29/19 07:47 97.5 80 17 114/85 (95) 97 01/29/19 07:12 Room Air 01/29/19 04:00 97.5 89 17 123/85 (98) 97 01/29/19 00:00 97.1 82 20 113/67 (82) 97 01/28/19 22:21 98.8 01/28/19 21:00 Room Air 01/28/19 20:00 97.2 82 18 131/78 (95) 99 01/28/19 16:00 98.8 89 17 121/76 (91) 98 01/28/19 12:00 98.0 89 18 124/83 (97) 96 01/28/19 09:00 Room Air Intake and Output 01/28/19 01/29/19 19:00 07:00 Intake Total 1900 ml Output Total 1170 ml Balance 730 ml Intake Oral 300 ml Other 1600 ml Emesis 200 ml Drainage Total 20 ml Other 950 ml # Voids 3 # Bowel Movements 1 2 Laboratory Tests 01/29/19 05:46: White Blood Count 20.6H, Red Blood Count 3.73L, Hemoglobin 11.7L, Hematocrit 34.6L, Mean Corpuscular Volume 93, Mean Corpuscular Hemoglobin 31.5H, Mean Corpuscular Hemoglobin Concent 33.9, Red Cell Distribution Width 14.1, Platelet Count 580H, Mean Platelet Volume 5.7L, Neutrophils (%) (Auto) , Lymphocytes (%) (Auto) , Monocytes (%) (Auto) , Eosinophils (%) (Auto) , Basophils (%) (Auto) , Neutrophils % (Manual) [Pending], Lymphocytes % (Manual) [Pending], Platelet Estimate [Pending], Platelet Morphology [Pending], Sodium Level 133L, Potassium Level 4.5, Chloride Level 103, Carbon Dioxide Level 20L, Anion Gap 11, Blood Urea Nitrogen 10, Creatinine 1.0, Estimat Glomerular Filtration Rate 56.2, Glucose Level 86, Calcium Level 7.9L Height (Feet): 5 Height (Inches): 3.00 Weight (Pounds): 164 General Appearance: no apparent distress EENT: normal ENT inspection Neck: supple Cardiovascular: normal rate Respiratory/Chest: decreased breath sounds Abdomen: normal bowel sounds, non tender, soft Extremities: non-tender Indra Rocha MD Jan 29, 2019 08:09
--- NOTE | 2019-01-29 08:33 | General Progress Note ---
Assessment/Plan Problem List: (1) SOB (shortness of breath) ICD Codes: R06.02 - Shortness of breath SNOMED: 630561385 (2) Nausea & vomiting ICD Codes: R11.2 - Nausea with vomiting, unspecified SNOMED: 42258893 (3) Malnutrition ICD Codes: E46 - Unspecified protein-calorie malnutrition SNOMED: 28992018 (4) UTI (urinary tract infection) ICD Codes: N39.0 - Urinary tract infection, site not specified SNOMED: 92891295 (5) Abdominal pain ICD Codes: R10.9 - Unspecified abdominal pain SNOMED: 05643403 (6) Biliary drain displacement ICD Codes: T85.520A - Displacement of bile duct prosthesis, initial encounter SNOMED: 782927686 (7) Pancreatic cancer ICD Codes: C25.9 - Malignant neoplasm of pancreas, unspecified SNOMED: 202680230 Status: unchanged Assessment/Plan: pt diet pain control abx cbc bmp am dc plan snf Subjective Constitutional: Reports: weakness Allergies: Coded Allergies: No Known Allergies (Unverified , 01/12/19) All Systems: reviewed and negative except above Subjective sl nausea abd pain Objective Last 24 Hour Vital Signs Date Time Temp Pulse Resp B/P (MAP) Pulse Ox O2 Delivery O2 Flow Rate FiO2 01/29/19 07:47 97.5 80 17 114/85 (95) 97 01/29/19 07:12 Room Air 01/29/19 04:00 97.5 89 17 123/85 (98) 97 01/29/19 00:00 97.1 82 20 113/67 (82) 97 01/28/19 22:21 98.8 01/28/19 21:00 Room Air 01/28/19 20:00 97.2 82 18 131/78 (95) 99 01/28/19 16:00 98.8 89 17 121/76 (91) 98 01/28/19 12:00 98.0 89 18 124/83 (97) 96 01/28/19 09:00 Room Air Intake and Output 01/28/19 01/29/19 19:00 07:00 Intake Total 1900 ml Output Total 1170 ml Balance 730 ml Intake Oral 300 ml Other 1600 ml Emesis 200 ml Drainage Total 20 ml Other 950 ml # Voids 3 # Bowel Movements 1 2 Laboratory Tests 01/29/19 05:46: White Blood Count 20.6H, Red Blood Count 3.73L, Hemoglobin 11.7L, Hematocrit 34.6L, Mean Corpuscular Volume 93, Mean Corpuscular Hemoglobin 31.5H, Mean Corpuscular Hemoglobin Concent 33.9, Red Cell Distribution Width 14.1, Platelet Count 580H, Mean Platelet Volume 5.7L, Neutrophils (%) (Auto) , Lymphocytes (%) (Auto) , Monocytes (%) (Auto) , Eosinophils (%) (Auto) , Basophils (%) (Auto) , Neutrophils % (Manual) [Pending], Lymphocytes % (Manual) [Pending], Platelet Estimate [Pending], Platelet Morphology [Pending], Sodium Level 133L, Potassium Level 4.5, Chloride Level 103, Carbon Dioxide Level 20L, Anion Gap 11, Blood Urea Nitrogen 10, Creatinine 1.0, Estimat Glomerular Filtration Rate 56.2, Glucose Level 86, Calcium Level 7.9L Height (Feet): 5 Height (Inches): 3.00 Weight (Pounds): 164 General Appearance: lethargic EENT: normal ENT inspection Neck: normal alignment Cardiovascular: normal peripheral pulses, normal rate, regular rhythm Respiratory/Chest: chest wall non-tender, lungs clear, normal breath sounds Abdomen: normal bowel sounds, non tender, soft Extremities: normal inspection Edema: no edema noted Arm (L), no edema noted Arm (R), no edema noted Leg (L), no edema noted Leg (R), no edema noted Pedal (L), no edema noted Pedal (R), no edema noted Generalized Neurologic: motor weakness Skin: normal pigmentation, warm/dry Elvis Luke DO Jan 29, 2019 08:33
--- NOTE | 2019-01-29 09:44 | Nephrology Progress Note ---
Assessment/Plan Problem List: (1) Electrolyte abnormality (2) Pancreatic cancer (3) Biliary drain displacement (4) Abdominal pain (5) Malnutrition Assessment HypoKalemia HypoNatremia Abdominal pain. Nausea. Vomiting. UTI. Pancreatic cancer. Biliary drain displacement Malnutrition. Anemia Plan K mag phos supplement as needed, check labs change IV to isotonic solution monitor lytes start PO Folic acid ocean transportation intermediary plan?? Subjective ROS Limited/Unobtainable: No Constitutional: Reports: malaise, weakness Objective Objective Last 24 Hour Vital Signs Date Time Temp Pulse Resp B/P (MAP) Pulse Ox O2 Delivery O2 Flow Rate FiO2 01/29/19 07:47 97.5 80 17 114/85 (95) 97 01/29/19 07:12 Room Air 01/29/19 04:00 97.5 89 17 123/85 (98) 97 01/29/19 00:00 97.1 82 20 113/67 (82) 97 01/28/19 22:21 98.8 01/28/19 21:00 Room Air 01/28/19 20:00 97.2 82 18 131/78 (95) 99 01/28/19 16:00 98.8 89 17 121/76 (91) 98 01/28/19 12:00 98.0 89 18 124/83 (97) 96 Intake and Output 01/28/19 01/29/19 19:00 07:00 Intake Total 1900 ml Output Total 1170 ml Balance 730 ml Intake Oral 300 ml Other 1600 ml Emesis 200 ml Drainage Total 20 ml Other 950 ml # Voids 3 # Bowel Movements 1 2 Laboratory Tests 01/29/19 05:46: White Blood Count 20.6H, Red Blood Count 3.73L, Hemoglobin 11.7L, Hematocrit 34.6L, Mean Corpuscular Volume 93, Mean Corpuscular Hemoglobin 31.5H, Mean Corpuscular Hemoglobin Concent 33.9, Red Cell Distribution Width 14.1, Platelet Count 580H, Mean Platelet Volume 5.7L, Neutrophils (%) (Auto) , Lymphocytes (%) (Auto) , Monocytes (%) (Auto) , Eosinophils (%) (Auto) , Basophils (%) (Auto) , Neutrophils % (Manual) [Pending], Lymphocytes % (Manual) [Pending], Platelet Estimate [Pending], Platelet Morphology [Pending], Sodium Level 133L, Potassium Level 4.5, Chloride Level 103, Carbon Dioxide Level 20L, Anion Gap 11, Blood Urea Nitrogen 10, Creatinine 1.0, Estimat Glomerular Filtration Rate 56.2, Glucose Level 86, Calcium Level 7.9L Height (Feet): 5 Height (Inches): 3.00 Weight (Pounds): 164 General Appearance: no apparent distress Cardiovascular: normal rate Respiratory/Chest: decreased breath sounds Abdomen: distended Objective no change Kapil Turcios MD Jan 29, 2019 09:44
--- NOTE | 2019-01-29 10:15 | NUR ---
NURSE NOTES: pt abdominal pigtail drain output brown color 400 ml.
--- NOTE | 2019-01-29 14:40 | Surgery Progress Note ---
Surgery Progress Note Subjective Additional Comments leukocytosis draining still cultures with gram negative growth today Objective Last 24 Hour Vital Signs Date Time Temp Pulse Resp B/P (MAP) Pulse Ox O2 Delivery O2 Flow Rate FiO2 01/29/19 13:35 97.5 01/29/19 07:47 97.5 80 17 114/85 (95) 97 01/29/19 07:12 Room Air 01/29/19 04:00 97.5 89 17 123/85 (98) 97 01/29/19 00:00 97.1 82 20 113/67 (82) 97 01/28/19 21:00 Room Air 01/28/19 20:00 97.2 82 18 131/78 (95) 99 01/28/19 16:00 98.8 89 17 121/76 (91) 98 I&O Intake and Output 01/28/19 01/29/19 18:59 06:59 Intake Total 1900 ml Output Total 1170 ml Balance 730 ml Intake Oral 300 ml Other 1600 ml Emesis 200 ml Drainage Total 20 ml Other 950 ml # Voids 3 # Bowel Movements 1 2 Dressing: other Wound: other Drains: other Cardiovascular: RSR Respiratory: decreased breath sounds Abdomen: soft, present bowel sounds, non-distended Extremities: no cyanosis Laboratory Tests Test 01/29/19 05:46 White Blood Count 20.6 K/UL (4.8-10.8) H Red Blood Count 3.73 M/UL (4.20-5.40) L Hemoglobin 11.7 G/DL (12.0-16.0) L Hematocrit 34.6 % (37.0-47.0) L Mean Corpuscular Volume 93 FL (80-99) Mean Corpuscular Hemoglobin 31.5 PG (27.0-31.0) H Mean Corpuscular Hemoglobin Concent 33.9 G/DL (32.0-36.0) Red Cell Distribution Width 14.1 % (11.6-14.8) Platelet Count 580 K/UL (150-450) H Mean Platelet Volume 5.7 FL (6.5-10.1) L Neutrophils (%) (Auto) % (45.0-75.0) Lymphocytes (%) (Auto) % (20.0-45.0) Monocytes (%) (Auto) % (1.0-10.0) Eosinophils (%) (Auto) % (0.0-3.0) Basophils (%) (Auto) % (0.0-2.0) Differential Total Cells Counted 100 Neutrophils % (Manual) 78 % (45-75) H Lymphocytes % (Manual) 7 % (20-45) L Monocytes % (Manual) 13 % (1-10) H Eosinophils % (Manual) 1 % (0-3) Basophils % (Manual) 1 % (0-2) Band Neutrophils 0 % (0-8) Platelet Estimate Adequate Platelet Morphology Normal Hypochromasia 1+ Sodium Level 133 MMOL/L (136-145) L Potassium Level 4.5 MMOL/L (3.5-5.1) Chloride Level 103 MMOL/L (98-107) Carbon Dioxide Level 20 MMOL/L (21-32) L Anion Gap 11 mmol/L (5-15) Blood Urea Nitrogen 10 mg/dL (7-18) Creatinine 1.0 MG/DL (0.55-1.30) Estimat Glomerular Filtration Rate 56.2 mL/min (>60) Glucose Level 86 MG/DL (74-106) Calcium Level 7.9 MG/DL (8.5-10.1) L Plan Problems: (1) Abdominal pain Assessment & Plan: 63-year-old female patient with history of recently diagnosed pancreatic cancer in November 2018 presented to the emergency room at [facility] with complaint of abdominal pain for approximately 1 hour. Patient is status post a biliary drain placement at [facility] approximately 1 week ago. She reported that she had a first treatment of chemotherapy this past Thursday. The patient denied any nausea vomiting, denies any constipation or diarrhea. She states her pain medication was unable to relieve her pain. no fever or chills. labs as below. C Tnoted. surgery called to assist with care and management. tube checked Impression: Diffusely abnormal bowel uptake. Given findings on recent CT scan, this most likely represents enteritis, most likely infectious. Abnormal uptake in the face or upper neck to the left of midline, exact location uncertain. Consider neck CT for better characterization Mildly prominent pulmonary uptake, significance doubted okay for diet tube to drain IV abx d/c planning for SNF f/u with pcp / onc outpatient stable otherwise from surgical standpoint no acute surgical intervention planned Probably has extensive tumor burden given interventions and findings noted. No surgical recommendation at this time. Possible that fluid collection in case in the abdomen infected but to operate on this would be ill advised at this time and patient's current condition. Continue with antibiotics iv fluids trend labs will monitor and follow with exam thank you (2) Biliary drain displacement Assessment & Plan: Daughter was able to inform me with a lot of history. Seems patient unresectable initially and attempted biliary drain placed endoscopically but unsuccessful. A external biliary drain was placed by radiology. Would patient was getting her Port-A-Cath placed a another radiologist felt he could place a internal/external biliary drain and he was able to successfully place a internal/external biliary drain. Had the trade Since. Fell off and she has been without it to drainage recently. In evaluating the trade she has some bilious output from the drain and on imaging drain looks to be appropriately placed. Labs reviewed stable. drain placed to gravity as leaking Drain putting out a ton since placed on 2 bag IMPRESSION: 1. Appropriately positioned percutaneous left biliary drain with mild intrahepatic biliary ductal dilatation. 2. Ill-defined pancreatic head/proximal body mass, likely corresponding to stated history of pancreatic neoplasm. Please note evaluation of size and vascular involvement of pancreatic masses is incomplete prior examinations and without multiphasic pancreatic protocol. 3. 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 SMV confluence is not visualized. 4. Color wall thickening with pericholecystic fluid; in the absence of distended gallbladder, these findings are critical for acute pancreatitis and clinical correlation is recommended. Transhepatic biliary drain noted. 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 Abnormal liver with area of peripheral hypoechogenicity along the posterior right lobe margin. Suggest further evaluation with contrast CT. Obscured pancreas and aorta due to bowel gas. . Interval development of moderate small bowel dilatation. Transition to relatively decompressed terminal ileum demonstrated indicating this is probably a mechanical bowel obstruction. Pneumatosis suspected within one of the proximal small bowel segments in the upper abdomen. No evidence of perforation. Development of multiloculated ascites with prominent collections contiguous with the caudal end of the right lobe of the liver capsule, Morison's pouch and inferior to the right kidney. Other generalized mild ascites noted as well. Internal/external transhepatic biliary drainage catheter in good position. No imaging evidence for catheter malfunction or biliary obstruction. CT noted. likely internal leakage from internal external drain as it was noted to be backing put few days ago hence placed on drainage bag recommend outpatient f/u with oncology and her GI at primary facility to discuss placement of internal metallic larger drain and remove internal / external drain s/p abd drain placement pending micro (3) Pancreatic cancer Assessment & Plan: Pancreatic cancer, non-resectable, based on patient's info. Had a Abdominal pelvis CT reviewed 1. Appropriately positioned percutaneous left biliary drain with mild intrahepatic biliary ductal dilatation. 2. Ill- defined pancreatic head/proximal body mass, likely corresponding to stated history of pancreatic neoplasm. Please note evaluation of size and vascular involvement of pancreatic masses is incomplete prior examinations and without multiphasic pancreatic protocol. 3. 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 She has already started rx Jim Gates Jan 29, 2019 14:40
[2019-01-29 16:00] VITALS: BP 135/71
--- NOTE | 2019-01-29 16:05 | Infectious Diseases Prog Note ---
Assessment/Plan Assessment/Plan Fever 01/13, SP Leukocytosis, fluctuating 01/14 bcx ng tumor related? Ileus related? biloma related? atelectasis? 01/24 Indium scan: Diffusely abnormal bowel uptake. Given findings on recent CT scan, this most likely represents enteritis, most likely infectious. Abnormal uptake in the face or upper neck to the left of midline, exact location uncertain. Consider neck CT for better characterization. Mildly prominent pulmonary uptake, significance doubted. On further review the images, activity in the right midabdomen is greater than would be accounted for acute spine hepatic activity, and there is significant activity inferior to the right lobe of the liver in the anterior abdomen. This correlates with a large loculated fluid collection demonstrated on recent CT scan of 01/20/2019, and may indicate infection of this collection. The smaller subcapsular collection in the posterior right hepatic lobe is difficult to differentiate from normal liver activity on this exam, so it is not possible to assess for the presence or absence of abnormal activity in this. 01/27 US: Aspiration of posterior hepatic subcapsular collection, yielding serous fluid which does not appear grossly infected. No drainage catheter placed , therefore, but a specimen was sent to the lab for analysis. Placement of 8.5 [place] pigtail drainage catheter in anterior right lower quadrant intraperitoneal collection. This yielded borderline purulent appearing body brown fluid. Specimen sent to lab for analysis. 01/27 fluid: 76K WBC(92% PMN). cx: 3+ GNR PNA, CAP? -CXR: Patchy consolidation in the right lower lung, concerning for pneumonia. Mild pulmonary vascular congestion. -flu swab negative urine legionella antigen negative Abdominal pain Pancreatitis? lipase negative 01/12 CT abd/p: Appropriately positioned percutaneous left biliary drain with mild intrahepatic biliary ductal dilatation. Ill-defined pancreatic head/ proximal body mass, likely corresponding to stated history of pancreatic neoplasm. Please note evaluation of size and vascular involvement of pancreatic masses is incomplete prior examinations and without multiphasic pancreatic protocol. 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 SMV confluence is not visualized. Gallbladder wall thickening with pericholecystic fluid; in the absence of distended gallbladder, these findings are critical for acute pancreatitis and clinical correlation is recommended. 01/19 US Abd: Transhepatic biliary drain noted. 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 Abnormal liver with area of peripheral hypoechogenicity along the posterior right lobe margin. Suggest further evaluation with contrast CT. Obscured pancreas and aorta due to bowel gas. Trace ascites 01/20 CT A/P: Interval development of moderate small bowel dilatation. Transition to relatively decompressed terminal ileum demonstrated indicating this is probably a mechanical bowel obstruction. Pneumatosis suspected within one of the proximal small bowel segments in the upper abdomen. No evidence of perforation. Development of multiloculated ascites with prominent collections contiguous with the caudal end of the right lobe of the liver capsule, Morison's pouch and inferior to the right kidney. Other generalized mild ascites noted as well. Internal/external transhepatic biliary drainage catheter in good position. No imaging evidence for catheter malfunction or biliary obstruction. Right basilar consolidation versus atelectasis. Correlate for pneumonia. Trace bilateral pleural effusions. Anasarca recently diagnosed pancreatic CA 11/2018 - s/p biliary drain 1 week [employer] at [facility] - 1st chemotherapy treatment 01/10/19 tobacco abuse Plan: Meropenem #5...f/u fluid cx 01/25 SP Ceftriaxone #3, flagyl #1, vancomycin #11 01/22 SP Azithromycin #7 01/23 SP Zosyn #8 01/17 DC Tamiflu #2 -f/u cx -Monitor CBC/CMP, temperatures -f/u Bcx x2 -aspiration precautions Thank you for this consultation. Will continue to follow along with you. Subjective Allergies: Coded Allergies: No Known Allergies (Unverified , 01/12/19) Subjective Afebrile. Pt is calmer today. WBC worse. Pt reports pain. Objective Vital Signs Last 24 Hour Vital Signs Date Time Temp Pulse Resp B/P (MAP) Pulse Ox O2 Delivery O2 Flow Rate FiO2 01/29/19 13:35 97.5 01/29/19 07:47 97.5 80 17 114/85 (95) 97 01/29/19 07:12 Room Air 01/29/19 04:00 97.5 89 17 123/85 (98) 97 01/29/19 00:00 97.1 82 20 113/67 (82) 97 01/28/19 21:00 Room Air 01/28/19 20:00 97.2 82 18 131/78 (95) 99 Height (Feet): 5 Height (Inches): 3.00 Weight (Pounds): 164 Objective Gen: NAD CV: RRR Resp: RRR Abd: hypoactive BS+. Diffusely TTP but worse RUQ. Ext: no edema Neuro: alert. Microbiology Date/Time Source Procedure Growth Status 01/27/19 13:46 Abdominal Fluid Gram Stain - Final Resulted 01/27/19 13:46 Aerobic Culture - Preliminary Gram Negative Bacillus 1 Resulted 01/27/19 13:46 Abdominal Fluid Anaerobic Culture - Preliminary NO GROWTH Resulted Laboratory Tests Test 01/29/19 05:46 White Blood Count 20.6 K/UL (4.8-10.8) H Red Blood Count 3.73 M/UL (4.20-5.40) L Hemoglobin 11.7 G/DL (12.0-16.0) L Hematocrit 34.6 % (37.0-47.0) L Mean Corpuscular Volume 93 FL (80-99) Mean Corpuscular Hemoglobin 31.5 PG (27.0-31.0) H Mean Corpuscular Hemoglobin Concent 33.9 G/DL (32.0-36.0) Red Cell Distribution Width 14.1 % (11.6-14.8) Platelet Count 580 K/UL (150-450) H Mean Platelet Volume 5.7 FL (6.5-10.1) L Neutrophils (%) (Auto) % (45.0-75.0) Lymphocytes (%) (Auto) % (20.0-45.0) Monocytes (%) (Auto) % (1.0-10.0) Eosinophils (%) (Auto) % (0.0-3.0) Basophils (%) (Auto) % (0.0-2.0) Differential Total Cells Counted 100 Neutrophils % (Manual) 78 % (45-75) H Lymphocytes % (Manual) 7 % (20-45) L Monocytes % (Manual) 13 % (1-10) H Eosinophils % (Manual) 1 % (0-3) Basophils % (Manual) 1 % (0-2) Band Neutrophils 0 % (0-8) Platelet Estimate Adequate Platelet Morphology Normal Hypochromasia 1+ Sodium Level 133 MMOL/L (136-145) L Potassium Level 4.5 MMOL/L (3.5-5.1) Chloride Level 103 MMOL/L (98-107) Carbon Dioxide Level 20 MMOL/L (21-32) L Anion Gap 11 mmol/L (5-15) Blood Urea Nitrogen 10 mg/dL (7-18) Creatinine 1.0 MG/DL (0.55-1.30) Estimat Glomerular Filtration Rate 56.2 mL/min (>60) Glucose Level 86 MG/DL (74-106) Calcium Level 7.9 MG/DL (8.5-10.1) L Current Medications Medications (Trade) Dose Ordered Sig/Zuleima Route PRN Reason Start Time Stop Time Status Last Admin Dose Admin Acetaminophen (Tylenol) 650 mg Q8H PRN ORAL Mild Pain/Temp > 100.5 01/12/19 17:30 02/11/19 17:29 01/13/19 17:27 Bisacodyl (Dulcolax) 10 mg BIDPRN PRN RECTAL Constipation 01/16/19 07:45 02/15/19 07:44 01/19/19 18:34 Dextrose (Dextrose 50%) 25 ml Q30M PRN IV Hypoglycemia 01/12/19 13:45 02/11/19 13:44 Dextrose (Dextrose 50%) 50 ml Q30M PRN IV Hypoglycemia 01/12/19 13:45 02/11/19 13:44 Enoxaparin Sodium (Lovenox) 60 mg Q12HR@0600,1800 SUBQ 01/20/19 18:00 02/19/19 17:59 01/29/19 05:11 Fentanyl (Duragesic) 1 patch Q72H TDERMAL 01/25/19 12:00 02/01/19 11:59 01/28/19 12:40 Folic Acid (Folate) 5 mg DAILY ORAL 01/17/19 09:45 02/16/19 09:44 01/29/19 08:28 Gabapentin (Neurontin) 300 mg THREE TIMES A DAY ORAL 01/19/19 18:00 02/18/19 17:59 01/29/19 12:40 Hydromorphone HCl (Dilaudid) 4 mg Q4H PRN ORAL severe breakthrough pain 01/24/19 10:12 01/31/19 10:11 01/29/19 13:05 Meropenem 1 gm/ Sodium Chloride 55 ml @ 110 mls/hr Q8HR IVPB 01/25/19 22:00 01/30/19 21:59 01/29/19 13:04 Methylnaltrexone [place] (Relistor) 12 mg ONCE A WEEK SUBQ 02/01/19 09:00 03/03/19 08:59 Miscellaneous Medication (fentaNYL Destruction) 1 ea Q72H MISC 01/25/19 11:59 02/24/19 11:58 01/28/19 11:59 Naloxone HCl (Narcan) 0.1 mg Q5M PRN IV Sedation scale 3 or 4 01/24/19 09:00 02/23/19 08:54 Ondansetron HCl (Zofran) 4 mg Q6H PRN IVP Nausea & Vomiting 01/12/19 13:45 02/11/19 13:44 01/26/19 08:08 Pantoprazole (Protonix) 40 mg EVERY 12 HOURS ORAL 01/27/19 21:00 02/26/19 20:59 01/29/19 08:29 Polyethylene Glycol (Miralax) 17 gm BEDTIME PRN ORAL constipation 01/22/19 10:30 02/15/19 20:59 Potassium Chloride (K-Dur) 40 meq TWICE A DAY ORAL 01/27/19 10:00 02/26/19 09:59 01/29/19 08:29 Simethicone (Mylicon) 80 mg BIDPRN PRN ORAL gas 01/18/19 21:45 02/17/19 21:44 01/21/19 14:38 Zolpidem Tartrate (Ambien) 5 mg HSPRN PRN ORAL Insomnia 01/26/19 21:00 02/02/19 20:59 Catalina Kirby MD Jan 29, 2019 16:05
--- NOTE | 2019-01-29 18:48 | NUR ---
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
--- NOTE | 2019-01-29 19:02 | NUR ---
HAND-OFF: Report given to STEPHANY BLOOD.
--- NOTE | 2019-01-29 19:13 | NUR ---
NURSE NOTES: Received report from CAITIE [place]. patient is in bed sleeping at this time. No signs of respiratory distress or SOB. Bed locked and in lowest position. Call light in reach. Will continue to monitor.
[2019-01-29 20:00] VITALS: BP 123/71
[2019-01-30] VITALS: BP 125/71
[2019-01-30 04:00] VITALS: BP 135/77
[2019-01-30] MEDS: HYDROmorphone 4mg tab ORAL PRN ×4 (04:49→20:53)
[2019-01-30] MEDS: Enoxaparin 60mg Inj SUBQ SCH ×2 (05:40→19:59)
[2019-01-30] MEDS: Meropenem 1 GM in NS 55 ML IVPB SCH ×2 (05:40→13:47)
--- NOTE | 2019-01-30 06:23 | General Progress Note ---
Assessment/Plan Status: unchanged Assessment/Plan: (1) Pancreatic cancer ICD Codes: C25.9 - Malignant neoplasm of pancreas, unspecified SNOMED: 813760132 (2) Biliary drain displacement ICD Codes: T85.520A - Displacement of bile duct prosthesis, initial encounter SNOMED: 546842254 (3) Abdominal pain ICD Codes: R10.9 - Unspecified abdominal pain SNOMED: 03347661 Status: unchanged Status Narrative Discussed with Dr. Rocha Assessment/Plan Abdominal pelvis CT reviewed 1. Appropriately positioned percutaneous left biliary drain with mild intrahepatic biliary ductal dilatation. 2. Ill-defined pancreatic head/proximal body mass, likely corresponding to stated history of pancreatic neoplasm. Please note evaluation of size and vascular involvement of pancreatic masses is incomplete prior examinations and without multiphasic pancreatic protocol. 3. 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 SMV confluence is not visualized. 4. Color wall thickening with pericholecystic fluid; in the absence of distended gallbladder, these findings are critical for acute pancreatitis and clinical correlation is recommended. No plans for GI procedures at this time. Symptomatic treatment surgical recommendations, no interventions at this time Follow-up pain management recommendations ppi Trend LFTs We will follow-up Subjective ROS Limited/Unobtainable: No Allergies: Coded Allergies: No Known Allergies (Unverified , 01/12/19) Subjective constipated Objective Last 24 Hour Vital Signs Date Time Temp Pulse Resp B/P (MAP) Pulse Ox O2 Delivery O2 Flow Rate FiO2 01/30/19 04:00 97.2 82 18 135/77 (96) 97 01/30/19 00:00 97.7 81 17 125/71 (89) 97 01/29/19 20:00 98.1 87 18 123/71 (88) 97 01/29/19 19:40 Room Air 01/29/19 16:00 98.0 70 17 135/71 (92) 97 01/29/19 13:35 97.5 01/29/19 07:47 97.5 80 17 114/85 (95) 97 01/29/19 07:12 Room Air Intake and Output 01/29/19 01/30/19 19:00 07:00 Intake Total 710 ml 480 ml Output Total 400 ml 300 ml Balance 310 ml 180 ml Intake Oral 600 ml 480 ml IV Total 110 ml Other 400 ml 300 ml # Voids 5 2 # Bowel Movements 2 1 Height (Feet): 5 Height (Inches): 3.00 Weight (Pounds): 164 General Appearance: no apparent distress EENT: normal ENT inspection Neck: normal alignment Cardiovascular: normal rate Respiratory/Chest: decreased breath sounds Abdomen: normal bowel sounds, non tender, soft Extremities: non-tender Indra Rocha MD Jan 30, 2019 06:23
[2019-01-30 07:00] LABS: ANION GAP 7 mmol/L (5-15); BLOOD UREA NITROGEN 9 mg/dL (7-18); CALCIUM 7.4 MG/DL (8.5-10.1); CARBON DIOXIDE 23 MMOL/L (21-32); CHLORIDE 106 MMOL/L (98-107); POTASSIUM 4.1 MMOL/L (3.5-5.1); SODIUM 136 MMOL/L (136-145)
[2019-01-30 07:10] LABS: HEMATOCRIT 31.7 % (37.0-47.0); HEMOGLOBIN 10.7 G/DL (12.0-16.0); MEAN CORPUSCULAR VOLUME 93 FL (80-99); PLATELET COUNT 455 K/UL (150-450); RED BLOOD COUNT 3.41 M/UL (4.20-5.40); WHITE BLOOD COUNT 18.6 K/UL (4.8-10.8)
--- NOTE | 2019-01-30 07:40 | NUR ---
HAND-OFF: Report given to CAITIE Choudhury.
[2019-01-30 08:00] VITALS: BP 124/63
--- NOTE | 2019-01-30 08:01 | NUR ---
NURSE NOTES: received patient in bed, no complaint of pain or discomfort. L eft hand IV access saline locked. Left abdominal biliary drainage tube and right lower quadrant pigtail, both connected to installment loan collector bag. Bed locked at the lowest position possible, call light within easy reach, siderails up x2. Will continue to monitor patient and follow up with the plan of care.
--- NOTE | 2019-01-30 08:36 | General Progress Note ---
Assessment/Plan Problem List: (1) SOB (shortness of breath) ICD Codes: R06.02 - Shortness of breath SNOMED: 807779876 (2) Nausea & vomiting ICD Codes: R11.2 - Nausea with vomiting, unspecified SNOMED: 17749567 (3) Malnutrition ICD Codes: E46 - Unspecified protein-calorie malnutrition SNOMED: 58585674 (4) UTI (urinary tract infection) ICD Codes: N39.0 - Urinary tract infection, site not specified SNOMED: 36069187 (5) Abdominal pain ICD Codes: R10.9 - Unspecified abdominal pain SNOMED: 00842347 (6) Biliary drain displacement ICD Codes: T85.520A - Displacement of bile duct prosthesis, initial encounter SNOMED: 181681178 (7) Pancreatic cancer ICD Codes: C25.9 - Malignant neoplasm of pancreas, unspecified SNOMED: 517318847 Status: unchanged Assessment/Plan: pt diet pain control abx cbc bmp am dc plan snf Subjective Constitutional: Reports: weakness Allergies: Coded Allergies: No Known Allergies (Unverified , 01/12/19) All Systems: reviewed and negative except above Subjective sl nausea abd pain Objective Last 24 Hour Vital Signs Date Time Temp Pulse Resp B/P (MAP) Pulse Ox O2 Delivery O2 Flow Rate FiO2 01/30/19 04:00 97.2 82 18 135/77 (96) 97 01/30/19 00:00 97.7 81 17 125/71 (89) 97 01/29/19 20:00 98.1 87 18 123/71 (88) 97 01/29/19 19:40 Room Air 01/29/19 16:00 98.0 70 17 135/71 (92) 97 01/29/19 13:35 97.5 Intake and Output 01/29/19 01/30/19 19:00 07:00 Intake Total 710 ml 480 ml Output Total 400 ml 300 ml Balance 310 ml 180 ml Intake Oral 600 ml 480 ml IV Total 110 ml Other 400 ml 300 ml # Voids 5 2 # Bowel Movements 2 1 Laboratory Tests 01/30/19 06:20: White Blood Count 18.6H, Red Blood Count 3.41L, Hemoglobin 10.7L, Hematocrit 31.7L, Mean Corpuscular Volume 93, Mean Corpuscular Hemoglobin 31.5H, Mean Corpuscular Hemoglobin Concent 33.8, Red Cell Distribution Width 14.0, Platelet Count 455H, Mean Platelet Volume 6.2L, Neutrophils (%) (Auto) , Lymphocytes (%) (Auto) , Monocytes (%) (Auto) , Eosinophils (%) (Auto) , Basophils (%) (Auto) , Neutrophils % (Manual) [Pending], Lymphocytes % (Manual) [Pending], Platelet Estimate [Pending], Platelet Morphology [Pending], Sodium Level 136, Potassium Level 4.1, Chloride Level 106, Carbon Dioxide Level 23, Anion Gap 7, Blood Urea Nitrogen 9, Creatinine 1.0, Estimat Glomerular Filtration Rate 56.2, Glucose Level 102, Calcium Level 7.4L Height (Feet): 5 Height (Inches): 3.00 Weight (Pounds): 164 General Appearance: lethargic EENT: normal ENT inspection Neck: normal alignment Cardiovascular: normal peripheral pulses, normal rate, regular rhythm Respiratory/Chest: chest wall non-tender, lungs clear, normal breath sounds Abdomen: normal bowel sounds, non tender, soft Extremities: normal inspection Edema: no edema noted Arm (L), no edema noted Arm (R), no edema noted Leg (L), no edema noted Leg (R), no edema noted Pedal (L), no edema noted Pedal (R), no edema noted Generalized Neurologic: motor weakness Skin: normal pigmentation, warm/dry Elvis Luke DO Jan 30, 2019 08:36
[2019-01-30 12:00] VITALS: BP 121/69
--- NOTE | 2019-01-30 12:29 | General Progress Note ---
Assessment/Plan Assessment/Plan: (1) Intractable abdominal pain (2) Pancreatic cancer We will continue the Neurontin, Dilaudid and Fentanyl patch D/w Dr. Gonzales and he concurred. Subjective Date patient seen: Jan 30, 2019 Time patient seen: 11:45 - am Allergies: Coded Allergies: No Known Allergies (Unverified , 01/12/19) Subjective REVIEW OF SYSTEMS: Denies rash, fever, chills, sweating, dizziness, drowsiness, blurred vision, sore throat, change in weight. No shortness of breath or chest pain. No bowel or bladder incontinence. She is complaining of abdominal pain. SUBJECTIVE: Patient feels like she is doing better. Continues to c/o pain in her abdominal area which can be severe having the Fentanyl patch applied and using 4 doses of the Dilaudid in the last 24hrs. No new complaints at this time. Objective Last 24 Hour Vital Signs Date Time Temp Pulse Resp B/P (MAP) Pulse Ox O2 Delivery O2 Flow Rate FiO2 01/30/19 09:45 97.2 01/30/19 09:00 Room Air 01/30/19 08:00 98.1 85 19 124/63 (83) 96 01/30/19 04:00 97.2 82 18 135/77 (96) 97 01/30/19 00:00 97.7 81 17 125/71 (89) 97 01/29/19 20:00 98.1 87 18 123/71 (88) 97 01/29/19 19:40 Room Air 01/29/19 16:00 98.0 70 17 135/71 (92) 97 Intake and Output 01/29/19 01/30/19 18:59 06:59 Intake Total 710 ml 480 ml Output Total 410 ml 300 ml Balance 300 ml 180 ml Intake Oral 600 ml 480 ml IV Total 110 ml Other 410 ml 300 ml # Voids 5 2 # Bowel Movements 2 1 Laboratory Tests 01/30/19 06:20: White Blood Count 18.6H, Red Blood Count 3.41L, Hemoglobin 10.7L, Hematocrit 31.7L, Mean Corpuscular Volume 93, Mean Corpuscular Hemoglobin 31.5H, Mean Corpuscular Hemoglobin Concent 33.8, Red Cell Distribution Width 14.0, Platelet Count 455H, Mean Platelet Volume 6.2L, Neutrophils (%) (Auto) , Lymphocytes (%) (Auto) , Monocytes (%) (Auto) , Eosinophils (%) (Auto) , Basophils (%) (Auto) , Differential Total Cells Counted 100, Neutrophils % (Manual) 72, Lymphocytes % ( Manual) 9L, Monocytes % (Manual) 15H, Eosinophils % (Manual) 0, Basophils % ( Manual) 2, Metamyelocytes % 1H, Myelocytes % 1H, Band Neutrophils 0, Nucleated Red Blood Cells 1, Platelet Estimate Adequate, Platelet Morphology Normal, Hypochromasia 1+, Anisocytosis 1+, Spherocytes 1+, Sodium Level 136, Potassium Level 4.1, Chloride Level 106, Carbon Dioxide Level 23, Anion Gap 7, Blood Urea Nitrogen 9, Creatinine 1.0, Estimat Glomerular Filtration Rate 56.2, Glucose Level 102, Calcium Level 7.4L Height (Feet): 5 Height (Inches): 3.00 Weight (Pounds): 164 Objective GENERAL: Alert, awake, and oriented. LUNGS: Clear bilaterally. HEART: S1, S2 regular. ABDOMEN: Tenderness to palpation with biliary stent noted. BACK: Range of motion is decreased in flexion, extension. EXTREMITIES: No cyanosis. No clubbing. No edema. NEURO: No changes. Doug Reid Jan 30, 2019 12:29
--- NOTE | 2019-01-30 13:14 | Surgery Progress Note ---
Surgery Progress Note Subjective Additional Comments doing better states feels okay wbc trending down exam stable micro with ecoli Objective Last 24 Hour Vital Signs Date Time Temp Pulse Resp B/P (MAP) Pulse Ox O2 Delivery O2 Flow Rate FiO2 01/30/19 09:45 97.2 01/30/19 09:00 Room Air 01/30/19 08:00 98.1 85 19 124/63 (83) 96 01/30/19 04:00 97.2 82 18 135/77 (96) 97 01/30/19 00:00 97.7 81 17 125/71 (89) 97 01/29/19 20:00 98.1 87 18 123/71 (88) 97 01/29/19 19:40 Room Air 01/29/19 16:00 98.0 70 17 135/71 (92) 97 I&O Intake and Output 01/29/19 01/30/19 19:00 07:00 Intake Total 710 ml 480 ml Output Total 400 ml 300 ml Balance 310 ml 180 ml Intake Oral 600 ml 480 ml IV Total 110 ml Other 400 ml 300 ml # Voids 5 2 # Bowel Movements 2 1 Dressing: dry Drains: other Cardiovascular: RSR Respiratory: clear Abdomen: soft, flat, non-tender, present bowel sounds, non-distended Extremities: no edema, no tenderness, no cyanosis Laboratory Tests Test 01/30/19 06:20 White Blood Count 18.6 K/UL (4.8-10.8) H Red Blood Count 3.41 M/UL (4.20-5.40) L Hemoglobin 10.7 G/DL (12.0-16.0) L Hematocrit 31.7 % (37.0-47.0) L Mean Corpuscular Volume 93 FL (80-99) Mean Corpuscular Hemoglobin 31.5 PG (27.0-31.0) H Mean Corpuscular Hemoglobin Concent 33.8 G/DL (32.0-36.0) Red Cell Distribution Width 14.0 % (11.6-14.8) Platelet Count 455 K/UL (150-450) H Mean Platelet Volume 6.2 FL (6.5-10.1) L Neutrophils (%) (Auto) % (45.0-75.0) Lymphocytes (%) (Auto) % (20.0-45.0) Monocytes (%) (Auto) % (1.0-10.0) Eosinophils (%) (Auto) % (0.0-3.0) Basophils (%) (Auto) % (0.0-2.0) Differential Total Cells Counted 100 Neutrophils % (Manual) 72 % (45-75) Lymphocytes % (Manual) 9 % (20-45) L Monocytes % (Manual) 15 % (1-10) H Eosinophils % (Manual) 0 % (0-3) Basophils % (Manual) 2 % (0-2) Metamyelocytes % 1 % (0-0) H Myelocytes % 1 % (0-0) H Band Neutrophils 0 % (0-8) Nucleated Red Blood Cells 1 /100 WBC Platelet Estimate Adequate Platelet Morphology Normal Hypochromasia 1+ Anisocytosis 1+ Spherocytes 1+ Sodium Level 136 MMOL/L (136-145) Potassium Level 4.1 MMOL/L (3.5-5.1) Chloride Level 106 MMOL/L (98-107) Carbon Dioxide Level 23 MMOL/L (21-32) Anion Gap 7 mmol/L (5-15) Blood Urea Nitrogen 9 mg/dL (7-18) Creatinine 1.0 MG/DL (0.55-1.30) Estimat Glomerular Filtration Rate 56.2 mL/min (>60) Glucose Level 102 MG/DL (74-106) Calcium Level 7.4 MG/DL (8.5-10.1) L Plan Problems: (1) Abdominal pain Assessment & Plan: 63-year-old female patient with history of recently diagnosed pancreatic cancer in November 2018 presented to the emergency room at [facility] [place] with complaint of abdominal pain for approximately 1 hour. Patient is status post a biliary drain placement at [facility] approximately 1 week ago. She reported that she had a first treatment of chemotherapy this past Thursday. The patient denied any nausea vomiting, denies any constipation or diarrhea. She states her pain medication was unable to relieve her pain. no fever or chills. labs as below. C Tnoted. surgery called to assist with care and management. tube checked Impression: Diffusely abnormal bowel uptake. Given findings on recent CT scan, this most likely represents enteritis, most likely infectious. Abnormal uptake in the face or upper neck to the left of midline, exact location uncertain. Consider neck CT for better characterization Mildly prominent pulmonary uptake, significance doubted okay for diet tube to drain IV abx d/c planning for SNF f/u with pcp / onc outpatient stable otherwise from surgical standpoint no acute surgical intervention planned Probably has extensive tumor burden given interventions and findings noted. No surgical recommendation at this time. Possible that fluid collection in case in the abdomen infected but to operate on this would be ill advised at this time and patient's current condition. Continue with antibiotics iv fluids trend labs will monitor and follow with exam thank you (2) Biliary drain displacement Assessment & Plan: Daughter was able to inform me with a lot of history. Seems patient unresectable initially and attempted biliary drain placed endoscopically but unsuccessful. A external biliary drain was placed by radiology. Would patient was getting her Port-A-Cath placed a another radiologist felt he could place a internal/external biliary drain and he was able to successfully place a internal/external biliary drain. Had the trade Since. Fell off and she has been without it to drainage recently. In evaluating the trade she has some bilious output from the drain and on imaging drain looks to be appropriately placed. Labs reviewed stable. drain placed to gravity as leaking Drain putting out a ton since placed on 2 bag IMPRESSION: 1. Appropriately positioned percutaneous left biliary drain with mild intrahepatic biliary ductal dilatation. 2. Ill-defined pancreatic head/proximal body mass, likely corresponding to stated history of pancreatic neoplasm. Please note evaluation of size and vascular involvement of pancreatic masses is incomplete prior examinations and without multiphasic pancreatic protocol. 3. 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 SMV confluence is not visualized. 4. Color wall thickening with pericholecystic fluid; in the absence of distended gallbladder, these findings are critical for acute pancreatitis and clinical correlation is recommended. Transhepatic biliary drain noted. 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 Abnormal liver with area of peripheral hypoechogenicity along the posterior right lobe margin. Suggest further evaluation with contrast CT. Obscured pancreas and aorta due to bowel gas. . Interval development of moderate small bowel dilatation. Transition to relatively decompressed terminal ileum demonstrated indicating this is probably a mechanical bowel obstruction. Pneumatosis suspected within one of the proximal small bowel segments in the upper abdomen. No evidence of perforation. Development of multiloculated ascites with prominent collections contiguous with the caudal end of the right lobe of the liver capsule, Morison's pouch and inferior to the right kidney. Other generalized mild ascites noted as well. Internal/external transhepatic biliary drainage catheter in good position. No imaging evidence for catheter malfunction or biliary obstruction. CT noted. likely internal leakage from internal external drain as it was noted to be backing put few days ago hence placed on drainage bag recommend outpatient f/u with oncology and her GI at primary facility to discuss placement of internal metallic larger drain and remove internal / external drain s/p abd drain placement pending micro (3) Pancreatic cancer Assessment & Plan: Pancreatic cancer, non-resectable, based on patient's info. Had a Abdominal pelvis CT reviewed 1. Appropriately positioned percutaneous left biliary drain with mild intrahepatic biliary ductal dilatation. 2. Ill- defined pancreatic head/proximal body mass, likely corresponding to stated history of pancreatic neoplasm. Please note evaluation of size and vascular involvement of pancreatic masses is incomplete prior examinations and without multiphasic pancreatic protocol. 3. 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 She has already started rx Jim Gates Jan 30, 2019 13:14
--- NOTE | 2019-01-30 14:20 | Nephrology Progress Note ---
Assessment/Plan Problem List: (1) Electrolyte abnormality (2) Pancreatic cancer (3) Biliary drain displacement (4) Abdominal pain (5) Malnutrition Assessment HypoKalemia HypoNatremia Abdominal pain. Nausea. Vomiting. UTI. Pancreatic cancer. Biliary drain displacement Malnutrition. 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 Subjective ROS Limited/Unobtainable: No Constitutional: Reports: malaise Objective Objective Last 24 Hour Vital Signs Date Time Temp Pulse Resp B/P (MAP) Pulse Ox O2 Delivery O2 Flow Rate FiO2 01/30/19 12:00 98.0 81 18 121/69 (86) 97 01/30/19 09:45 97.2 01/30/19 09:00 Room Air 01/30/19 08:00 98.1 85 19 124/63 (83) 96 01/30/19 04:00 97.2 82 18 135/77 (96) 97 01/30/19 00:00 97.7 81 17 125/71 (89) 97 01/29/19 20:00 98.1 87 18 123/71 (88) 97 01/29/19 19:40 Room Air 01/29/19 16:00 98.0 70 17 135/71 (92) 97 Intake and Output 01/29/19 01/30/19 18:59 06:59 Intake Total 710 ml 480 ml Output Total 410 ml 300 ml Balance 300 ml 180 ml Intake Oral 600 ml 480 ml IV Total 110 ml Other 410 ml 300 ml # Voids 5 2 # Bowel Movements 2 1 Laboratory Tests 01/30/19 06:20: White Blood Count 18.6H, Red Blood Count 3.41L, Hemoglobin 10.7L, Hematocrit 31.7L, Mean Corpuscular Volume 93, Mean Corpuscular Hemoglobin 31.5H, Mean Corpuscular Hemoglobin Concent 33.8, Red Cell Distribution Width 14.0, Platelet Count 455H, Mean Platelet Volume 6.2L, Neutrophils (%) (Auto) , Lymphocytes (%) (Auto) , Monocytes (%) (Auto) , Eosinophils (%) (Auto) , Basophils (%) (Auto) , Differential Total Cells Counted 100, Neutrophils % (Manual) 72, Lymphocytes % ( Manual) 9L, Monocytes % (Manual) 15H, Eosinophils % (Manual) 0, Basophils % ( Manual) 2, Metamyelocytes % 1H, Myelocytes % 1H, Band Neutrophils 0, Nucleated Red Blood Cells 1, Platelet Estimate Adequate, Platelet Morphology Normal, Hypochromasia 1+, Anisocytosis 1+, Spherocytes 1+, Sodium Level 136, Potassium Level 4.1, Chloride Level 106, Carbon Dioxide Level 23, Anion Gap 7, Blood Urea Nitrogen 9, Creatinine 1.0, Estimat Glomerular Filtration Rate 56.2, Glucose Level 102, Calcium Level 7.4L Height (Feet): 5 Height (Inches): 3.00 Weight (Pounds): 164 General Appearance: no apparent distress Objective no change Kapil Turcios MD Jan 30, 2019 14:20
[2019-01-30 15:49] VITALS: BP 126/70
[2019-01-30] MEDS: metroNIDAZOLE 500mg Premix IVPB SCH ×2 (15:59→21:35)
--- NOTE | 2019-01-30 19:30 | NUR ---
HAND-OFF: Report given to CAITIE Monson.
--- NOTE | 2019-01-30 19:39 | NUR ---
NURSE NOTES: Patient is in bed sleeping at this time. No signs of respiratory distress or SOB. L biliary drain and R pigtail drain in place. IV intact and patent. Bed locked and in lowest position. Call light in reach. Will continue to monitor.
[2019-01-30 20:00] VITALS: BP 126/67
[2019-01-30] MEDS: cefTRIAXone 1gm/D5W 55ml IVPB SCH ×2 (21:01)
[2019-01-31] VITALS (7 sets, daily range): BP systolic 100–125; BP diastolic 62–79
[2019-01-31] MEDS: Zolpidem 5mg tab ORAL PRN (00:59)
[2019-01-31] MEDS: metroNIDAZOLE 500mg Premix IVPB SCH ×3 (05:18→21:50)
[2019-01-31] MEDS: Enoxaparin 60mg Inj SUBQ SCH ×2 (05:24→17:46)
[2019-01-31] MEDS: HYDROmorphone 4mg tab ORAL PRN ×3 (06:35→22:27)
--- NOTE | 2019-01-31 07:35 | NUR ---
NURSE NOTES: Received patient on bed, awake. IV site intact adn patent. Drains secured, patent and draining. Bed in low and locekd position, call light in reach. No signs of respiratory distress or pain. Room board updated, will continue to monitor.
--- NOTE | 2019-01-31 07:46 | NUR ---
HAND-OFF: Report given to CAITIE Briones.
--- NOTE | 2019-01-31 08:50 | General Progress Note ---
Assessment/Plan Assessment/Plan: (1) Intractable abdominal pain (2) Pancreatic cancer We will continue the Neurontin, Dilaudid and Fentanyl patch D/w Dr. Gonzales and he concurred. Subjective Date patient seen: Jan 31, 2019 Time patient seen: 08:00 - am Allergies: Coded Allergies: No Known Allergies (Unverified , 01/12/19) Subjective REVIEW OF SYSTEMS: Denies rash, fever, chills, sweating, dizziness, drowsiness, blurred vision, sore throat, change in weight. No shortness of breath or chest pain. No bowel or bladder incontinence. She is complaining of abdominal pain. SUBJECTIVE: Patient is in bed and eating well. Pain has been reducing and tolerated on the Fentanyl patch and Dilaudid. She reports pain at a 5/10. Waiting for transfer to SNF. No new complaints at this time Objective Last 24 Hour Vital Signs Date Time Temp Pulse Resp B/P (MAP) Pulse Ox O2 Delivery O2 Flow Rate FiO2 01/31/19 04:00 97.9 81 18 119/70 (86) 96 01/31/19 00:00 97.5 84 17 121/68 (85) 96 01/30/19 20:00 97.5 83 20 126/67 (86) 96 01/30/19 19:59 Room Air 01/30/19 15:49 98.4 83 18 126/70 (88) 95 01/30/19 14:17 97.2 01/30/19 12:00 98.0 81 18 121/69 (86) 97 01/30/19 09:00 Room Air Intake and Output 01/30/19 01/31/19 19:00 07:00 Intake Total 855 ml 480 ml Output Total 700 ml Balance 855 ml -220 ml Intake Oral 480 ml IV Total 55 ml Other 800 ml Other 700 ml # Voids 2 # Bowel Movements 2 Height (Feet): 5 Height (Inches): 3.00 Weight (Pounds): 164 Objective GENERAL: Alert, awake, and oriented. LUNGS: Clear bilaterally. HEART: S1, S2 regular. ABDOMEN: Tenderness to palpation with biliary stent noted. BACK: Range of motion is decreased in flexion, extension. EXTREMITIES: No cyanosis. No clubbing. No edema. NEURO: No changes. Doug Reid Jan 31, 2019 08:50
[2019-01-31 09:46] LABS: ALANINE AMINOTRANSFERASE 16 U/L (12-78); ALBUMIN 1.4 G/DL (3.4-5.0); ALBUMIN/GLOBULIN RATIO 0.3 (1.0-2.7); ALKALINE PHOSPHATASE 210 U/L (46-116); ANION GAP 7 mmol/L (5-15); ASPARTATE AMINO TRANSFERASE 24 U/L (15-37); BILIRUBIN,TOTAL 0.5 MG/DL (0.2-1.0); BLOOD UREA NITROGEN 9 mg/dL (7-18); CALCIUM 7.3 MG/DL (8.5-10.1); CARBON DIOXIDE 23 MMOL/L (21-32); CHLORIDE 105 MMOL/L (98-107); SODIUM 135 MMOL/L (136-145)
--- NOTE | 2019-01-31 09:46 | General Progress Note ---
Assessment/Plan Problem List: (1) SOB (shortness of breath) ICD Codes: R06.02 - Shortness of breath SNOMED: 647868287 (2) Nausea & vomiting ICD Codes: R11.2 - Nausea with vomiting, unspecified SNOMED: 19891690 (3) Malnutrition ICD Codes: E46 - Unspecified protein-calorie malnutrition SNOMED: 30615322 (4) UTI (urinary tract infection) ICD Codes: N39.0 - Urinary tract infection, site not specified SNOMED: 18882088 (5) Abdominal pain ICD Codes: R10.9 - Unspecified abdominal pain SNOMED: 75578354 (6) Biliary drain displacement ICD Codes: T85.520A - Displacement of bile duct prosthesis, initial encounter SNOMED: 049269377 (7) Pancreatic cancer ICD Codes: C25.9 - Malignant neoplasm of pancreas, unspecified SNOMED: 548213992 Status: unchanged Assessment/Plan: pt diet pain control abx cbc bmp am dc plan snf Subjective Constitutional: Reports: weakness Allergies: Coded Allergies: No Known Allergies (Unverified , 01/12/19) All Systems: reviewed and negative except above Subjective sl nausea abd pain Objective Last 24 Hour Vital Signs Date Time Temp Pulse Resp B/P (MAP) Pulse Ox O2 Delivery O2 Flow Rate FiO2 01/31/19 04:00 97.9 81 18 119/70 (86) 96 01/31/19 00:00 97.5 84 17 121/68 (85) 96 01/30/19 20:00 97.5 83 20 126/67 (86) 96 01/30/19 19:59 Room Air 01/30/19 15:49 98.4 83 18 126/70 (88) 95 01/30/19 14:17 97.2 01/30/19 12:00 98.0 81 18 121/69 (86) 97 Intake and Output 01/30/19 01/31/19 19:00 07:00 Intake Total 855 ml 480 ml Output Total 700 ml Balance 855 ml -220 ml Intake Oral 480 ml IV Total 55 ml Other 800 ml Other 700 ml # Voids 2 # Bowel Movements 2 Laboratory Tests 01/31/19 09:00: Sodium Level [Pending], Potassium Level [Pending], Chloride Level [Pending], Carbon Dioxide Level [Pending], Blood Urea Nitrogen [Pending], Creatinine [ Pending], Estimat Glomerular Filtration Rate [Pending], Glucose Level [Pending] , Calcium Level [Pending], Total Bilirubin [Pending], Aspartate Amino Transf ( AST/SGOT) [Pending], Alanine Aminotransferase (ALT/SGPT) [Pending], Alkaline Phosphatase [Pending], Total Protein [Pending], Albumin [Pending], Globulin [ Pending] Height (Feet): 5 Height (Inches): 3.00 Weight (Pounds): 164 General Appearance: lethargic EENT: normal ENT inspection Neck: normal alignment Cardiovascular: normal peripheral pulses, normal rate, regular rhythm Respiratory/Chest: chest wall non-tender, lungs clear, normal breath sounds Abdomen: soft, hypoactive bowel sounds Extremities: normal inspection Edema: no edema noted Arm (L), no edema noted Arm (R), no edema noted Leg (L), no edema noted Leg (R), no edema noted Pedal (L), no edema noted Pedal (R), no edema noted Generalized Neurologic: motor weakness Skin: normal pigmentation, warm/dry Elvis Luke DO Jan 31, 2019 09:46
--- NOTE | 2019-01-31 10:44 | NUR ---
NURSE NOTES: Order for Fentanyl about to reach stop date. Doug contacted. New order received.
--- NOTE | 2019-01-31 10:58 | Consultation ---
History of Present Illness General Chief Complaint: Abdominal Pain Referring physician: Present Illness HPI 63F hx of cancer currently hospitalized states she has not seen her optho in years and unsure if current prescription correct. vision otherwise okay Allergies: Coded Allergies: No Known Allergies (Unverified , 01/12/19) Medication History Scheduled Polyethylene Glycol 3350* (Miralax*), Unknown Dose ORAL DAILY, (Reported) Scheduled PRN Acetaminophen* (Tylenol Extra Strength*), 500 MG ORAL Q6H PRN for Mild Pain/ Temp > 100.5, (Reported) Hydrocodone Bit/Acetaminophen 10-325* ([place] 10-325*), 1 TAB ORAL Q6H PRN for For Pain, (Reported) Prochlorperazine (Compazine*), 10 MG ORAL Q6H PRN for Nausea & Vomiting, ( Reported) Miscellaneous Medications Famotidine/Ca Carb/Mag Hydrox (Pepcid Complete Tablet Chew), Unknown Dose PO, ( Reported) Patient History Healthcare decision maker Jarod Bird, Yolande Resuscitation status Full Code Advanced Directive on File No Review of Systems All Other Systems: negative except mentioned in HPI Physical Exam Physical Exam Narrative wearing eyeglasses no injection of conjunctiva no visual cataracts stable Last 24 Hour Vital Signs Date Time Temp Pulse Resp B/P (MAP) Pulse Ox O2 Delivery O2 Flow Rate FiO2 01/31/19 04:00 97.9 81 18 119/70 (86) 96 01/31/19 00:00 97.5 84 17 121/68 (85) 96 01/30/19 20:00 97.5 83 20 126/67 (86) 96 01/30/19 19:59 Room Air 01/30/19 15:49 98.4 83 18 126/70 (88) 95 01/30/19 14:17 97.2 01/30/19 12:00 98.0 81 18 121/69 (86) 97 Intake and Output 01/30/19 01/31/19 19:00 07:00 Intake Total 855 ml 480 ml Output Total 700 ml Balance 855 ml -220 ml Intake Oral 480 ml IV Total 55 ml Other 800 ml Other 700 ml # Voids 2 # Bowel Movements 2 Laboratory Tests Test 01/31/19 09:00 Sodium Level 135 MMOL/L (136-145) L Potassium Level 4.0 MMOL/L (3.5-5.1) Chloride Level 105 MMOL/L (98-107) Carbon Dioxide Level 23 MMOL/L (21-32) Anion Gap 7 mmol/L (5-15) Blood Urea Nitrogen 9 mg/dL (7-18) Creatinine 1.0 MG/DL (0.55-1.30) Estimat Glomerular Filtration Rate 56.2 mL/min (>60) Glucose Level 113 MG/DL (74-106) H Calcium Level 7.3 MG/DL (8.5-10.1) L Total Bilirubin 0.5 MG/DL (0.2-1.0) Aspartate Amino Transf (AST/SGOT) 24 U/L (15-37) Alanine Aminotransferase (ALT/SGPT) 16 U/L (12-78) Alkaline Phosphatase 210 U/L (46-116) H Total Protein 5.4 G/DL (6.4-8.2) L Albumin 1.4 G/DL (3.4-5.0) L Globulin 4.0 g/dL Albumin/Globulin Ratio 0.3 (1.0-2.7) L Height (Feet): 5 Height (Inches): 3.00 Weight (Pounds): 164 Medications Current Medications Medications (Trade) Dose Ordered Sig/Zuleima Route PRN Reason Start Time Stop Time Status Last Admin Dose Admin Acetaminophen (Tylenol) 650 mg Q8H PRN ORAL Mild Pain/Temp > 100.5 01/12/19 17:30 02/11/19 17:29 01/13/19 17:27 Bisacodyl (Dulcolax) 10 mg BIDPRN PRN RECTAL Constipation 01/16/19 07:45 02/15/19 07:44 01/19/19 18:34 Ceftriaxone Sodium 1 gm/ Dextrose 55 ml @ 110 mls/hr Q24H IVPB 01/30/19 22:00 02/06/19 21:59 01/30/19 21:01 Dextrose (Dextrose 50%) 25 ml Q30M PRN IV Hypoglycemia 01/12/19 13:45 02/11/19 13:44 Dextrose (Dextrose 50%) 50 ml Q30M PRN IV Hypoglycemia 01/12/19 13:45 02/11/19 13:44 Enoxaparin Sodium (Lovenox) 60 mg Q12HR@0600,1800 SUBQ 01/20/19 18:00 02/19/19 17:59 01/31/19 05:24 Fentanyl (Duragesic) 1 patch Q72H TDERMAL 01/25/19 12:00 02/01/19 11:59 01/28/19 12:40 Gabapentin (Neurontin) 300 mg THREE TIMES A DAY ORAL 01/19/19 18:00 02/18/19 17:59 01/31/19 09:20 Hydromorphone HCl (Dilaudid) 4 mg Q4H PRN ORAL Severe Breakthru Pain (>7) 01/31/19 10:54 02/07/19 10:53 Methylnaltrexone [place] (Relistor) 12 mg ONCE A WEEK SUBQ 02/01/19 09:00 03/03/19 08:59 Metronidazole 100 ml @ 100 mls/hr Q8HR IVPB 01/30/19 15:30 02/06/19 15:29 01/31/19 05:18 Miscellaneous Medication (fentaNYL Destruction) 1 ea Q72H MISC 01/25/19 11:59 02/24/19 11:58 01/28/19 11:59 Naloxone HCl (Narcan) 0.1 mg Q5M PRN IV Sedation scale 3 or 4 01/24/19 09:00 02/23/19 08:54 Ondansetron HCl (Zofran) 4 mg Q6H PRN IVP Nausea & Vomiting 01/12/19 13:45 02/11/19 13:44 01/26/19 08:08 Pantoprazole (Protonix) 40 mg EVERY 12 HOURS ORAL 01/27/19 21:00 02/26/19 20:59 01/31/19 09:20 Polyethylene Glycol (Miralax) 17 gm BEDTIME PRN ORAL constipation 01/22/19 10:30 02/15/19 20:59 Potassium Chloride (K-Dur) 40 meq TWICE A DAY ORAL 01/27/19 10:00 02/26/19 09:59 01/31/19 09:20 Simethicone (Mylicon) 80 mg BIDPRN PRN ORAL gas 01/18/19 21:45 02/17/19 21:44 01/21/19 14:38 Zolpidem Tartrate (Ambien) 5 mg HSPRN PRN ORAL Insomnia 01/26/19 21:00 02/02/19 20:59 01/31/19 00:59 Assessment/Plan Assessment/Plan: If you have any of the following eye problems, dont wait for your next appointment visit your eye doctor as soon as possible: Decreased vision Draining or redness of the eye Eye pain Double vision Floaters (tiny specks that appear to float before your eyes) Circles (halos) around lights Flashes of light Individuals who develop diabetes mellitus type 1 should be examined by an mold insert changer 5 years after disease onset and at least yearly thereafter.13, 14 Individuals who develop diabetes mellitus type 2 should be examined at the time of diagnosis and at least yearly thereafter.15 Women with type 1 or type 2 diabetes should receive a comprehensive eye examination before conception and then early in the first trimester of . Recommended intervals for subsequent examinations depend upon the level of retinopathy.16-18 Adults with no signs or risk factors for eye disease should receive a baseline comprehensive eye evaluation at age 40.4 Individuals without risk factors aged 40 to 54 should be examined by an mold insert changer every 2 to 4 years. Individuals without risk factors aged 55 to 64 should be examined by an mold insert changer every 1 to 3 years.4, 5 Individuals without risk factors 65 years old or older should have an examination performed by an mold insert changer every 1 to 2 years as the incidence of unrecognized ocular disease increases with age.4, 5 The frequency of ocular examinations in the presence of acute or chronic disease will vary widely with intervals ranging from hours to several months, depending on the risks involved, response to treatment, and potential for the disease to progress. Any individual at higher risk for developing disease, based on ocular and medical history, family history, age, or race should have periodic examinations determined by the particular risks, even if no symptoms are present. A routine comprehensive annual adult eye examination in individuals under the age of 40 unnecessarily escalates the cost of eye care and is not indicated except as described above. This is a complementary visit for patient for informational care purposes Lawrence Nuñez MD Jan 31, 2019 10:58
--- NOTE | 2019-01-31 11:07 | GI Progress Note ---
Assessment/Plan Problems: (1) Pancreatic cancer ICD Codes: C25.9 - Malignant neoplasm of pancreas, unspecified SNOMED: 056466576 (2) Biliary drain displacement ICD Codes: T85.520A - Displacement of bile duct prosthesis, initial encounter SNOMED: 327418462 (3) Abdominal pain ICD Codes: R10.9 - Unspecified abdominal pain SNOMED: 00804978 Status: progressing Status Narrative Discussed with Dr. Rocha. Assessment/Plan Abdominal pelvis CT reviewed 1. Appropriately positioned percutaneous left biliary drain with mild intrahepatic biliary ductal dilatation. 2. Ill-defined pancreatic head/proximal body mass, likely corresponding to stated history of pancreatic neoplasm. Please note evaluation of size and vascular involvement of pancreatic masses is incomplete prior examinations and without multiphasic pancreatic protocol. 3. 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 SMV confluence is not visualized. 4. Color wall thickening with pericholecystic fluid; in the absence of distended gallbladder, these findings are critical for acute pancreatitis and clinical correlation is recommended. Indium scan suggest enteritis with diffuse abnormal bowel uptake. In addition abnormal uptake in the face or upper neck region. Status post ultrasound-guided aspiration of the posterior hepatic subcapsular collection. No plans for GI procedures at this time. Symptomatic treatment bowel regime, colace + miralax. Relistor q weekly. surgical recommendations pain management recommendations ppi Trend LFTs advance diet PT evaluation We will follow-up The patient was seen and examined at bedside and all new and available data was reviewed in the patients chart. I agree with the above findings, impression and plan. (Patient seen earlier today. Signature stamp does not reflect patient encounter time.). - Indra Rocha MD Subjective Subjective Patient still complains of abdominal pain, improved with medication Objective Last 24 Hour Vital Signs Date Time Temp Pulse Resp B/P (MAP) Pulse Ox O2 Delivery O2 Flow Rate FiO2 01/31/19 04:00 97.9 81 18 119/70 (86) 96 01/31/19 00:00 97.5 84 17 121/68 (85) 96 01/30/19 20:00 97.5 83 20 126/67 (86) 96 01/30/19 19:59 Room Air 01/30/19 15:49 98.4 83 18 126/70 (88) 95 11/10/19 14:17 97.2 01/30/19 12:00 98.0 81 18 121/69 (86) 97 Intake and Output 01/30/19 01/31/19 19:00 07:00 Intake Total 855 ml 480 ml Output Total 700 ml Balance 855 ml -220 ml Intake Oral 480 ml IV Total 55 ml Other 800 ml Other 700 ml # Voids 2 # Bowel Movements 2 Laboratory Tests Test 01/31/19 09:00 Sodium Level 135 MMOL/L (136-145) L Potassium Level 4.0 MMOL/L (3.5-5.1) Chloride Level 105 MMOL/L (98-107) Carbon Dioxide Level 23 MMOL/L (21-32) Anion Gap 7 mmol/L (5-15) Blood Urea Nitrogen 9 mg/dL (7-18) Creatinine 1.0 MG/DL (0.55-1.30) Estimat Glomerular Filtration Rate 56.2 mL/min (>60) Glucose Level 113 MG/DL (74-106) H Calcium Level 7.3 MG/DL (8.5-10.1) L Total Bilirubin 0.5 MG/DL (0.2-1.0) Aspartate Amino Transf (AST/SGOT) 24 U/L (15-37) Alanine Aminotransferase (ALT/SGPT) 16 U/L (12-78) Alkaline Phosphatase 210 U/L (46-116) H Total Protein 5.4 G/DL (6.4-8.2) L Albumin 1.4 G/DL (3.4-5.0) L Globulin 4.0 g/dL Albumin/Globulin Ratio 0.3 (1.0-2.7) L Height (Feet): 5 Height (Inches): 3.00 Weight (Pounds): 164 General Appearance: WD/WN, no apparent distress, alert Cardiovascular: normal rate Respiratory/Chest: normal breath sounds, no respiratory distress Abdominal Exam: normal bowel sounds, non tender, soft Extremities: normal range of motion, non-tender Jeff Rueda NP Jan 31, 2019 11:07
[2019-01-31] MEDS: fentaNYL Destruction MISC SCH (12:17)
--- NOTE | 2019-01-31 13:34 | Surgery Progress Note ---
Surgery Progress Note Subjective Additional Comments no acute events states she feels better. no n/v/f/c. tolerating diet ambulatory labs improving Objective Last 24 Hour Vital Signs Date Time Temp Pulse Resp B/P (MAP) Pulse Ox O2 Delivery O2 Flow Rate FiO2 01/31/19 09:00 Room Air 01/31/19 08:00 98.0 100 20 100/67 (78) 96 01/31/19 04:00 97.9 81 18 119/70 (86) 96 01/31/19 00:00 97.5 84 17 121/68 (85) 96 01/30/19 20:00 97.5 83 20 126/67 (86) 96 01/30/19 19:59 Room Air 01/30/19 15:49 98.4 83 18 126/70 (88) 95 01/30/19 14:17 97.2 I&O Intake and Output 01/30/19 01/31/19 19:00 07:00 Intake Total 855 ml 480 ml Output Total 700 ml Balance 855 ml -220 ml Intake Oral 480 ml IV Total 55 ml Other 800 ml Other 700 ml # Voids 2 # Bowel Movements 2 Dressing: dry Wound: clean Drains: other Cardiovascular: RSR Respiratory: clear Abdomen: soft, flat, non-tender, present bowel sounds Extremities: no edema, no tenderness, no cyanosis Laboratory Tests Test 01/31/19 09:00 Sodium Level 135 MMOL/L (136-145) L Potassium Level 4.0 MMOL/L (3.5-5.1) Chloride Level 105 MMOL/L (98-107) Carbon Dioxide Level 23 MMOL/L (21-32) Anion Gap 7 mmol/L (5-15) Blood Urea Nitrogen 9 mg/dL (7-18) Creatinine 1.0 MG/DL (0.55-1.30) Estimat Glomerular Filtration Rate 56.2 mL/min (>60) Glucose Level 113 MG/DL (74-106) H Calcium Level 7.3 MG/DL (8.5-10.1) L Total Bilirubin 0.5 MG/DL (0.2-1.0) Aspartate Amino Transf (AST/SGOT) 24 U/L (15-37) Alanine Aminotransferase (ALT/SGPT) 16 U/L (12-78) Alkaline Phosphatase 210 U/L (46-116) H Total Protein 5.4 G/DL (6.4-8.2) L Albumin 1.4 G/DL (3.4-5.0) L Globulin 4.0 g/dL Albumin/Globulin Ratio 0.3 (1.0-2.7) L Plan Problems: (1) Abdominal pain Assessment & Plan: 63-year-old female patient with history of recently diagnosed pancreatic cancer in November 2018 presented to the emergency room at [facility] with complaint of abdominal pain for approximately 1 hour. Patient is status post a biliary drain placement at [facility] approximately 1 week ago. She reported that she had a first treatment of chemotherapy this past Thursday. The patient denied any nausea vomiting, denies any constipation or diarrhea. She states her pain medication was unable to relieve her pain. no fever or chills. labs as below. C Tnoted. surgery called to assist with care and management. tube checked Impression: Diffusely abnormal bowel uptake. Given findings on recent CT scan, this most likely represents enteritis, most likely infectious. Abnormal uptake in the face or upper neck to the left of midline, exact location uncertain. Consider neck CT for better characterization Mildly prominent pulmonary uptake, significance doubted okay for diet tube to drain IV abx d/c planning for SNF f/u with pcp / onc outpatient stable otherwise from surgical standpoint no acute surgical intervention planned Probably has extensive tumor burden given interventions and findings noted. No surgical recommendation at this time. Possible that fluid collection in case in the abdomen infected but to operate on this would be ill advised at this time and patient's current condition. Continue with antibiotics iv fluids trend labs will monitor and follow with exam thank you (2) Biliary drain displacement Assessment & Plan: Daughter was able to inform me with a lot of history. Seems patient unresectable initially and attempted biliary drain placed endoscopically but unsuccessful. A external biliary drain was placed by radiology. Would patient was getting her Port-A-Cath placed a another radiologist felt he could place a internal/external biliary drain and he was able to successfully place a internal/external biliary drain. Had the trade Since. Fell off and she has been without it to drainage recently. In evaluating the trade she has some bilious output from the drain and on imaging drain looks to be appropriately placed. Labs reviewed stable. drain placed to gravity as leaking Drain putting out a ton since placed on 2 bag IMPRESSION: 1. Appropriately positioned percutaneous left biliary drain with mild intrahepatic biliary ductal dilatation. 2. Ill-defined pancreatic head/proximal body mass, likely corresponding to stated history of pancreatic neoplasm. Please note evaluation of size and vascular involvement of pancreatic masses is incomplete prior examinations and without multiphasic pancreatic protocol. 3. 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 SMV confluence is not visualized. 4. Color wall thickening with pericholecystic fluid; in the absence of distended gallbladder, these findings are critical for acute pancreatitis and clinical correlation is recommended. Transhepatic biliary drain noted. 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 Abnormal liver with area of peripheral hypoechogenicity along the posterior right lobe margin. Suggest further evaluation with contrast CT. Obscured pancreas and aorta due to bowel gas. . Interval development of moderate small bowel dilatation. Transition to relatively decompressed terminal ileum demonstrated indicating this is probably a mechanical bowel obstruction. Pneumatosis suspected within one of the proximal small bowel segments in the upper abdomen. No evidence of perforation. Development of multiloculated ascites with prominent collections contiguous with the caudal end of the right lobe of the liver capsule, Morison's pouch and inferior to the right kidney. Other generalized mild ascites noted as well. Internal/external transhepatic biliary drainage catheter in good position. No imaging evidence for catheter malfunction or biliary obstruction. CT noted. likely internal leakage from internal external drain as it was noted to be backing put few days ago hence placed on drainage bag recommend outpatient f/u with oncology and her GI at primary facility to discuss placement of internal metallic larger drain and remove internal / external drain s/p abd drain placement micro noted labs improved on abx d/c to SNF. f/u with outpatient onc f/u with outpatient GI for consideration of metallic biliary drain now that she has internal external thank you (3) Pancreatic cancer Assessment & Plan: Pancreatic cancer, non-resectable, based on patient's info. Had a Abdominal pelvis CT reviewed 1. Appropriately positioned percutaneous left biliary drain with mild intrahepatic biliary ductal dilatation. 2. Ill- defined pancreatic head/proximal body mass, likely corresponding to stated history of pancreatic neoplasm. Please note evaluation of size and vascular involvement of pancreatic masses is incomplete prior examinations and without multiphasic pancreatic protocol. 3. 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 She has already started rx Jim Gates Jan 31, 2019 13:34
--- NOTE | 2019-01-31 13:59 | Nephrology Progress Note ---
Assessment/Plan Problem List: (1) Electrolyte abnormality (2) Pancreatic cancer (3) Biliary drain displacement (4) Abdominal pain (5) Malnutrition Assessment HypoKalemia HypoNatremia Abdominal pain. Nausea. Vomiting. UTI. Pancreatic cancer. Biliary drain displacement Malnutrition. Anemia Plan K mag phos supplement as needed, check labs change IV to isotonic solution monitor lytes start PO Folic acid emt intermediate plan?? Subjective ROS Limited/Unobtainable: No Constitutional: Reports: malaise Objective Objective Last 24 Hour Vital Signs Date Time Temp Pulse Resp B/P (MAP) Pulse Ox O2 Delivery O2 Flow Rate FiO2 01/31/19 12:00 97.0 89 20 124/79 (94) 99 01/31/19 09:00 Room Air 01/31/19 08:00 98.0 100 20 100/67 (78) 96 01/31/19 04:00 97.9 81 18 119/70 (86) 96 01/31/19 00:00 97.5 84 17 121/68 (85) 96 01/30/19 20:00 97.5 83 20 126/67 (86) 96 01/30/19 19:59 Room Air 01/30/19 15:49 98.4 83 18 126/70 (88) 95 01/30/19 14:17 97.2 Intake and Output 01/30/19 01/31/19 19:00 07:00 Intake Total 855 ml 480 ml Output Total 700 ml Balance 855 ml -220 ml Intake Oral 480 ml IV Total 55 ml Other 800 ml Other 700 ml # Voids 2 # Bowel Movements 2 Laboratory Tests 01/31/19 09:00: Sodium Level 135L, Potassium Level 4.0, Chloride Level 105, Carbon Dioxide Level 23, Anion Gap 7, Blood Urea Nitrogen 9, Creatinine 1.0, Estimat Glomerular Filtration Rate 56.2, Glucose Level 113H, Calcium Level 7.3L, Total Bilirubin 0.5, Aspartate Amino Transf (AST/SGOT) 24, Alanine Aminotransferase ( ALT/SGPT) 16, Alkaline Phosphatase 210H, Total Protein 5.4L, Albumin 1.4L, Globulin 4.0, Albumin/Globulin Ratio 0.3L Height (Feet): 5 Height (Inches): 3.00 Weight (Pounds): 164 General Appearance: no apparent distress Objective no change Kapil Turcios MD Jan 31, 2019 13:59
--- NOTE | 2019-01-31 14:42 | NUR ---
NURSE NOTES: MD Gates removed right side drain and changed dressing.
[2019-01-31] MEDS ORDERED: Lidocaine 1% Plain 30 ml INJ PRN (15:45)
[2019-01-31] MEDS ORDERED: Tubing IV Secondary IV ONE (16:23)
--- NOTE | 2019-01-31 18:17 | Infectious Diseases Prog Note ---
Assessment/Plan Assessment/Plan Fever 01/13, SP Leukocytosis, fluctuating 01/14 bcx ng tumor related? Ileus related? biloma related? atelectasis? 01/24 Indium scan: Diffusely abnormal bowel uptake. Given findings on recent CT scan, this most likely represents enteritis, most likely infectious. Abnormal uptake in the face or upper neck to the left of midline, exact location uncertain. Consider neck CT for better characterization. Mildly prominent pulmonary uptake, significance doubted. On further review the images, activity in the right midabdomen is greater than would be accounted for acute spine hepatic activity, and there is significant activity inferior to the right lobe of the liver in the anterior abdomen. This correlates with a large loculated fluid collection demonstrated on recent CT scan of 01/20/2019, and may indicate infection of this collection. The smaller subcapsular collection in the posterior right hepatic lobe is difficult to differentiate from normal liver activity on this exam, so it is not possible to assess for the presence or absence of abnormal activity in this. 01/27 US: Aspiration of posterior hepatic subcapsular collection, yielding serous fluid which does not appear grossly infected. No drainage catheter placed , therefore, but a specimen was sent to the lab for analysis. Placement of 8.5 Egyptian pigtail drainage catheter in anterior right lower quadrant intraperitoneal collection. This yielded borderline purulent appearing body brown fluid. Specimen sent to lab for analysis. 01/27 fluid: 76K WBC(92% PMN). cx: 3+ GNR PNA, CAP? -CXR: Patchy consolidation in the right lower lung, concerning for pneumonia. Mild pulmonary vascular congestion. -flu swab negative urine legionella antigen negative Abdominal pain Pancreatitis? lipase negative 01/12 CT abd/p: Appropriately positioned percutaneous left biliary drain with mild intrahepatic biliary ductal dilatation. Ill-defined pancreatic head/ proximal body mass, likely corresponding to stated history of pancreatic neoplasm. Please note evaluation of size and vascular involvement of pancreatic masses is incomplete prior examinations and without multiphasic pancreatic protocol. 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 SMV confluence is not visualized. Gallbladder wall thickening with pericholecystic fluid; in the absence of distended gallbladder, these findings are critical for acute pancreatitis and clinical correlation is recommended. 01/19 US Abd: Transhepatic biliary drain noted. 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 Abnormal liver with area of peripheral hypoechogenicity along the posterior right lobe margin. Suggest further evaluation with contrast CT. Obscured pancreas and aorta due to bowel gas. Trace ascites 01/20 CT A/P: Interval development of moderate small bowel dilatation. Transition to relatively decompressed terminal ileum demonstrated indicating this is probably a mechanical bowel obstruction. Pneumatosis suspected within one of the proximal small bowel segments in the upper abdomen. No evidence of perforation. Development of multiloculated ascites with prominent collections contiguous with the caudal end of the right lobe of the liver capsule, Morison's pouch and inferior to the right kidney. Other generalized mild ascites noted as well. Internal/external transhepatic biliary drainage catheter in good position. No imaging evidence for catheter malfunction or biliary obstruction. Right basilar consolidation versus atelectasis. Correlate for pneumonia. Trace bilateral pleural effusions. Anasarca recently diagnosed pancreatic CA 11/2018 - s/p biliary drain 1 week [employer] at [facility] -sp 1st chemotherapy treatment 01/10/19 tobacco abuse Plan: Ceftriaxone, flagyl #2. f/u repeat drain placement tomorrow. 01/30 SP Meropenem #6 01/25 SP Ceftriaxone #3, flagyl #1, vancomycin #11 01/22 SP Azithromycin #7 01/23 SP Zosyn #8 01/17 DC Tamiflu #2 -f/u cx -Monitor CBC/CMP, temperatures -f/u Bcx x2 -aspiration precautions Thank you for this consultation. Will continue to follow along with you. Subjective Allergies: Coded Allergies: No Known Allergies (Unverified , 01/12/19) Subjective Afebrile. Pt is awake. interactive. drain fell out Objective Vital Signs Last 24 Hour Vital Signs Date Time Temp Pulse Resp B/P (MAP) Pulse Ox O2 Delivery O2 Flow Rate FiO2 01/31/19 12:00 97.0 89 20 124/79 (94) 99 01/31/19 09:00 Room Air 01/31/19 08:00 98.0 100 20 100/67 (78) 96 01/31/19 04:00 97.9 81 18 119/70 (86) 96 01/31/19 00:00 97.5 84 17 121/68 (85) 96 01/30/19 20:00 97.5 83 20 126/67 (86) 96 01/30/19 19:59 Room Air Height (Feet): 5 Height (Inches): 3.00 Weight (Pounds): 164 Objective Gen: NAD CV: RRR Resp: RRR Abd: hypoactive BS+. Diffusely TTP but worse RUQ. Ext: no edema Neuro: alert. Laboratory Tests Test 01/31/19 09:00 Sodium Level 135 MMOL/L (136-145) L Potassium Level 4.0 MMOL/L (3.5-5.1) Chloride Level 105 MMOL/L (98-107) Carbon Dioxide Level 23 MMOL/L (21-32) Anion Gap 7 mmol/L (5-15) Blood Urea Nitrogen 9 mg/dL (7-18) Creatinine 1.0 MG/DL (0.55-1.30) Estimat Glomerular Filtration Rate 56.2 mL/min (>60) Glucose Level 113 MG/DL (74-106) H Calcium Level 7.3 MG/DL (8.5-10.1) L Total Bilirubin 0.5 MG/DL (0.2-1.0) Aspartate Amino Transf (AST/SGOT) 24 U/L (15-37) Alanine Aminotransferase (ALT/SGPT) 16 U/L (12-78) Alkaline Phosphatase 210 U/L (46-116) H Total Protein 5.4 G/DL (6.4-8.2) L Albumin 1.4 G/DL (3.4-5.0) L Globulin 4.0 g/dL Albumin/Globulin Ratio 0.3 (1.0-2.7) L Current Medications Medications (Trade) Dose Ordered Sig/Zuleima Route PRN Reason Start Time Stop Time Status Last Admin Dose Admin Acetaminophen (Tylenol) 650 mg Q8H PRN ORAL Mild Pain/Temp > 100.5 01/12/19 17:30 02/11/19 17:29 01/13/19 17:27 Bisacodyl (Dulcolax) 10 mg BIDPRN PRN RECTAL Constipation 01/16/19 07:45 02/15/19 07:44 01/19/19 18:34 Ceftriaxone Sodium 1 gm/ Dextrose 55 ml @ 110 mls/hr Q24H IVPB 01/30/19 22:00 02/06/19 21:59 01/30/19 21:01 Dextrose (Dextrose 50%) 25 ml Q30M PRN IV Hypoglycemia 01/12/19 13:45 02/11/19 13:44 Dextrose (Dextrose 50%) 50 ml Q30M PRN IV Hypoglycemia 01/12/19 13:45 02/11/19 13:44 Enoxaparin Sodium (Lovenox) 60 mg Q12HR@0600,1800 SUBQ 01/20/19 18:00 02/19/19 17:59 01/31/19 17:46 Fentanyl (Duragesic) 1 patch Q72H TDERMAL 01/25/19 12:00 02/01/19 11:59 01/31/19 12:21 Gabapentin (Neurontin) 300 mg THREE TIMES A DAY ORAL 01/19/19 18:00 02/18/19 17:59 01/31/19 17:45 Hydromorphone HCl (Dilaudid) 4 mg Q4H PRN ORAL Severe Breakthru Pain (>7) 01/31/19 10:54 02/07/19 10:53 01/31/19 11:06 Lidocaine HCl (Xylocaine 1% 30ml) 30 ml ONCE PRN INJ cath placement 01/31/19 15:45 01/31/19 23:59 Methylnaltrexone [place] (Relistor) 12 mg ONCE A WEEK SUBQ 02/01/19 09:00 03/03/19 08:59 Metronidazole 100 ml @ 100 mls/hr Q8HR IVPB 01/30/19 15:30 02/06/19 15:29 01/31/19 14:11 Miscellaneous Medication (fentaNYL Destruction) 1 ea Q72H MISC 01/25/19 11:59 02/24/19 11:58 01/31/19 12:17 Naloxone HCl (Narcan) 0.1 mg Q5M PRN IV Sedation scale 3 or 4 01/24/19 09:00 02/23/19 08:54 Ondansetron HCl (Zofran) 4 mg Q6H PRN IVP Nausea & Vomiting 01/12/19 13:45 02/11/19 13:44 01/26/19 08:08 Pantoprazole (Protonix) 40 mg EVERY 12 HOURS ORAL 01/27/19 21:00 02/26/19 20:59 01/31/19 09:20 Polyethylene Glycol (Miralax) 17 gm BEDTIME PRN ORAL constipation 01/22/19 10:30 02/15/19 20:59 Potassium Chloride (K-Dur) 40 meq TWICE A DAY ORAL 01/27/19 10:00 02/26/19 09:59 01/31/19 17:45 Simethicone (Mylicon) 80 mg BIDPRN PRN ORAL gas 01/18/19 21:45 02/17/19 21:44 01/21/19 14:38 Zolpidem Tartrate (Ambien) 5 mg HSPRN PRN ORAL Insomnia 01/26/19 21:00 02/02/19 20:59 01/31/19 00:59 Catalina Kirby MD Jan 31, 2019 18:17
--- NOTE | 2019-01-31 18:27 | NUR ---
NURSE NOTES: Disregard 1600 vitals, entered wrong set by mistake.
--- NOTE | 2019-01-31 19:29 | NUR ---
HAND-OFF: Report given to CAITIE Dong.
--- NOTE | 2019-01-31 20:00 | NUR ---
NURSE NOTES: Received patient awake in bed, no c/o pain at this time, no s/s of acute distress. Biliary drain noted on left abdomen draining dark green fluid. IV access patent and intact, will administer abx as ordered. Bed low and locked, bedside commode noted in room within reach. Yellow socks on.
[2019-01-31] MEDS: cefTRIAXone 1gm/D5W 55ml IVPB SCH ×2 (22:15)
[2019-02-01] VITALS (12 sets, daily range): BP systolic 111–150; BP diastolic 59–83
[2019-02-01] MEDS: HYDROmorphone 4mg tab ORAL PRN ×4 (02:34→23:42)
[2019-02-01] MEDS: Zolpidem 5mg tab ORAL PRN ×2 (04:47→23:06)
[2019-02-01] MEDS: metroNIDAZOLE 500mg Premix IVPB SCH ×3 (05:11→21:33)
[2019-02-01] MEDS: Enoxaparin 60mg Inj SUBQ SCH ×2 (05:16→19:39)
--- NOTE | 2019-02-01 07:14 | NUR ---
HAND-OFF: Report given to CAITIE Smart.
--- NOTE | 2019-02-01 07:25 | Hematology/Onc Progress Note ---
Assessment/Plan Assessment/Plan # Pancreatic cancer, non-resectable, based on patient's info. Had a Abdominal pelvis CT reviewed 1. Appropriately positioned percutaneous left biliary drain with mild intrahepatic biliary ductal dilatation. 2. Ill-defined pancreatic head/proximal body mass, likely corresponding to stated history of pancreatic neoplasm. Please note evaluation of size and vascular involvement of pancreatic masses is incomplete prior examinations and without multiphasic pancreatic protocol. 3. 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 She has already started rx. --> gi recs noted No plans for GI procedures at this time --> surgical recommendations, no interventions at this time --> likely to continue chemo and XRT as needed with Dr. Elias Bernal (has received one chemo session) --> CA 19.9 688, in general with this presentation, poor prognosis --> if doesn't get chemo soon, likely to deteriorate, may be hospice candidate --> consider [employer] eval, which can also be done outpatient and can coordinate with her outpatient Onc, d/w Daughter # Portal vein thrombosis with abd pain (MAY BE due to tumor encasement) --> may be contributor for abdominal pain --> appears to be chronic portal vein thrombosis on imaging --> minimize pain meds as much as possible --> started on lovenox, okay to transition to noac once discharged # Thrombocytosis, is secondary to underlying process --> less likely myeloproliferative --> smear has been reviewed --> trend 700-->800-->920-->1040k->997 --> consider asa if worsens, doesn't need leukapheresis # Anemia of myelosuppressive chemo --> okay to continue on chemo at this time --> epo as stimulating factor if drops --> dw patient risks of dvt/VTE # Leukocytosis is likely due to pna --> agree to trend, improved --> abx as per id --> wbc trend 22-->20-->18k-->34k-->22-->19k-->21k-->20 # Transaminitis --> Trend LFTs --> per gi --> advance diet as tolerated # Dvt ppx LOVENOX 1mg/sq bid Subjective Allergies: Coded Allergies: No Known Allergies (Unverified , 01/12/19) Subjective 01/31: daughter at bedside, they are requesting [employer] MEMBER eval for uterus abnormality seen on outpatient PET scan 02/01: pt resting in bed no overnight events. Will call daughter for update on plan of care Objective Objective Current Medications Medications (Trade) Dose Ordered Sig/Zuleima Route PRN Reason Start Time Stop Time Status Last Admin Dose Admin Acetaminophen (Tylenol) 650 mg Q8H PRN ORAL Mild Pain/Temp > 100.5 01/12/19 17:30 02/11/19 17:29 01/13/19 17:27 Bisacodyl (Dulcolax) 10 mg BIDPRN PRN RECTAL Constipation 01/16/19 07:45 02/15/19 07:44 01/19/19 18:34 Ceftriaxone Sodium 1 gm/ Dextrose 55 ml @ 110 mls/hr Q24H IVPB 01/30/19 22:00 02/06/19 21:59 01/31/19 22:15 Dextrose (Dextrose 50%) 25 ml Q30M PRN IV Hypoglycemia 01/12/19 13:45 02/11/19 13:44 Dextrose (Dextrose 50%) 50 ml Q30M PRN IV Hypoglycemia 01/12/19 13:45 02/11/19 13:44 Enoxaparin Sodium (Lovenox) 60 mg Q12HR@0600,1800 SUBQ 01/20/19 18:00 02/19/19 17:59 01/31/19 17:46 Fentanyl (Duragesic) 1 patch Q72H TDERMAL 01/25/19 12:00 02/01/19 11:59 01/31/19 12:21 Gabapentin (Neurontin) 300 mg THREE TIMES A DAY ORAL 01/19/19 18:00 02/18/19 17:59 01/31/19 17:45 Hydromorphone HCl (Dilaudid) 4 mg Q4H PRN ORAL Severe Breakthru Pain (>7) 01/31/19 10:54 02/07/19 10:53 02/01/19 02:34 Methylnaltrexone [place] (Relistor) 12 mg ONCE A WEEK SUBQ 02/01/19 09:00 03/03/19 08:59 Metronidazole 100 ml @ 100 mls/hr Q8HR IVPB 01/30/19 15:30 02/06/19 15:29 02/01/19 05:11 Miscellaneous Medication (fentaNYL Destruction) 1 ea Q72H MISC 01/25/19 11:59 02/24/19 11:58 01/31/19 12:17 Naloxone HCl (Narcan) 0.1 mg Q5M PRN IV Sedation scale 3 or 4 01/24/19 09:00 02/23/19 08:54 Ondansetron HCl (Zofran) 4 mg Q6H PRN IVP Nausea & Vomiting 01/12/19 13:45 02/11/19 13:44 01/26/19 08:08 Pantoprazole (Protonix) 40 mg EVERY 12 HOURS ORAL 01/27/19 21:00 02/26/19 20:59 01/31/19 20:55 Polyethylene Glycol (Miralax) 17 gm BEDTIME PRN ORAL constipation 01/22/19 10:30 02/15/19 20:59 Potassium Chloride (K-Dur) 40 meq TWICE A DAY ORAL 01/27/19 10:00 02/26/19 09:59 01/31/19 17:45 Simethicone (Mylicon) 80 mg BIDPRN PRN ORAL gas 01/18/19 21:45 02/17/19 21:44 01/21/19 14:38 Zolpidem Tartrate (Ambien) 5 mg HSPRN PRN ORAL Insomnia 01/26/19 21:00 02/02/19 20:59 02/01/19 04:47 Last 24 Hour Vital Signs Date Time Temp Pulse Resp B/P (MAP) Pulse Ox O2 Delivery O2 Flow Rate FiO2 02/01/19 04:00 98.1 83 18 111/63 (79) 100 02/01/19 03:05 97.7 02/01/19 00:00 97.7 87 18 135/59 (84) 100 01/31/19 23:04 Room Air 01/31/19 20:00 98.6 85 18 107/62 (77) 100 01/31/19 16:01 97.7 92 20 125/77 (93) 100 01/31/19 16:00 98.1 83 20 116/70 (85) 100 01/31/19 12:00 97.0 89 20 124/79 (94) 99 01/31/19 09:00 Room Air 01/31/19 08:00 98.0 100 20 100/67 (78) 96 01/31/19 04:00 97.9 81 18 119/70 (86) 96 01/31/19 00:00 97.5 84 17 121/68 (85) 96 01/30/19 20:00 97.5 83 20 126/67 (86) 96 01/30/19 19:59 Room Air 01/30/19 15:49 98.4 83 18 126/70 (88) 95 01/30/19 14:17 97.2 01/30/19 12:00 98.0 81 18 121/69 (86) 97 01/30/19 09:00 Room Air 01/30/19 08:00 98.1 85 19 124/63 (83) 96 Intake and Output 01/31/19 02/01/19 19:00 07:00 Intake Total 940 ml Output Total 450 ml Balance 490 ml Intake Oral 840 ml IV Total 100 ml Drainage Total 450 ml # Voids 3 3 # Bowel Movements 2 1 Labs Test 01/30/19 06:20 01/31/19 09:00 White Blood Count 18.6 K/UL (4.8-10.8) Red Blood Count 3.41 M/UL (4.20-5.40) Hemoglobin 10.7 G/DL (12.0-16.0) Hematocrit 31.7 % (37.0-47.0) Mean Corpuscular Volume 93 FL (80-99) Mean Corpuscular Hemoglobin 31.5 PG (27.0-31.0) Mean Corpuscular Hemoglobin Concent 33.8 G/DL (32.0-36.0) Red Cell Distribution Width 14.0 % (11.6-14.8) Platelet Count 455 K/UL (150-450) Mean Platelet Volume 6.2 FL (6.5-10.1) Neutrophils (%) (Auto) % (45.0-75.0) Lymphocytes (%) (Auto) % (20.0-45.0) Monocytes (%) (Auto) % (1.0-10.0) Eosinophils (%) (Auto) % (0.0-3.0) Basophils (%) (Auto) % (0.0-2.0) Differential Total Cells Counted 100 Neutrophils % (Manual) 72 % (45-75) Lymphocytes % (Manual) 9 % (20-45) Monocytes % (Manual) 15 % (1-10) Eosinophils % (Manual) 0 % (0-3) Basophils % (Manual) 2 % (0-2) Metamyelocytes % 1 % (0-0) Myelocytes % 1 % (0-0) Band Neutrophils 0 % (0-8) Nucleated Red Blood Cells 1 /100 WBC Platelet Estimate Adequate Platelet Morphology Normal Hypochromasia 1+ Anisocytosis 1+ Spherocytes 1+ Sodium Level 136 MMOL/L (136-145) 135 MMOL/L (136-145) Potassium Level 4.1 MMOL/L (3.5-5.1) 4.0 MMOL/L (3.5-5.1) Chloride Level 106 MMOL/L (98-107) 105 MMOL/L (98-107) Carbon Dioxide Level 23 MMOL/L (21-32) 23 MMOL/L (21-32) Anion Gap 7 mmol/L (5-15) 7 mmol/L (5-15) Blood Urea Nitrogen 9 mg/dL (7-18) 9 mg/dL (7-18) Creatinine 1.0 MG/DL (0.55-1.30) 1.0 MG/DL (0.55-1.30) Estimat Glomerular Filtration Rate 56.2 mL/min (>60) 56.2 mL/min (>60) Glucose Level 102 MG/DL (74-106) 113 MG/DL (74-106) Calcium Level 7.4 MG/DL (8.5-10.1) 7.3 MG/DL (8.5-10.1) Total Bilirubin 0.5 MG/DL (0.2-1.0) Aspartate Amino Transf (AST/SGOT) 24 U/L (15-37) Alanine Aminotransferase (ALT/SGPT) 16 U/L (12-78) Alkaline Phosphatase 210 U/L (46-116) Total Protein 5.4 G/DL (6.4-8.2) Albumin 1.4 G/DL (3.4-5.0) Globulin 4.0 g/dL Albumin/Globulin Ratio 0.3 (1.0-2.7) Height (Feet): 5 Height (Inches): 3.00 Weight (Pounds): 164 Objective Constitutional: Denies: no symptoms, chills, fever, malaise, weakness, other HEENT: Denies: no symptoms, eye pain, blurred vision, tearing, double vision, ear pain, ear discharge, nose pain, nose congestion, throat pain, throat swelling, mouth pain, mouth swelling, other Cardiovascular: Denies: no symptoms, chest pain, edema, irregular heart rate, lightheadedness, palpitations, syncope, other Respiratory: Denies: no symptoms, cough, shortness of breath, SOB with excertion, SOB at rest, sputum, wheezing, other Gastrointestinal/Abdominal: Denies: no symptoms, abdomen distended, abdominal pain, black stools, tarry stools, blood in stool, constipated, diarrhea, difficulty swallowing, nausea, poor appetite, poor fluid intake, rectal bleeding , vomiting, other, biliary drain Genitourinary: Denies: no symptoms, burning, discharge, frequency, flank pain, hematuria, incontinence, pain, urgency, other Neurologic/Psychiatric: Denies: no symptoms, anxiety, depressed, emotional problems, headache, numbness, paresthesia, pre-existing deficit, seizure, tingling, tremors, weakness, other Endocrine: Denies: no symptoms, excessive sweating, flushing, intolerance to cold, intolerance to heat, increased hunger, increased thirst, increased urine, unexplained weight gain, unexplained weight loss, other Arianna Barriga NP Feb 01, 2019 07:25
[2019-02-01 07:54] LABS: ANION GAP 3 mmol/L (5-15); BLOOD UREA NITROGEN 9 mg/dL (7-18); CALCIUM 7.3 MG/DL (8.5-10.1); CARBON DIOXIDE 25 MMOL/L (21-32); CHLORIDE 107 MMOL/L (98-107); CREATININE 0.9 MG/DL (0.55-1.30); SODIUM 135 MMOL/L (136-145)
--- NOTE | 2019-02-01 08:00 | NUR ---
NURSE NOTES: Patient is alert and oriented,respirations unlabored.Noted right biliary drain with bile color drainage noted.patient is NPO for schedule procedure today. Bed alarm on,call light within reach.
--- NOTE | 2019-02-01 08:55 | General Progress Note ---
Assessment/Plan Assessment/Plan: (1) Intractable abdominal pain (2) Pancreatic cancer We will continue the Neurontin, Dilaudid and Fentanyl patch D/w Dr. Gonzales and he concurred. Subjective Date patient seen: Feb 01, 2019 Time patient seen: 07:30 - am Allergies: Coded Allergies: No Known Allergies (Unverified , 01/12/19) Subjective REVIEW OF SYSTEMS: Denies rash, fever, chills, sweating, dizziness, drowsiness, blurred vision, sore throat, change in weight. No shortness of breath or chest pain. No bowel or bladder incontinence. She is complaining of abdominal pain. SUBJECTIVE: Patient is in bed continues to c/o abdominal pain however it has been tolerated on the Fentanyl patch and Dilaudid. She is waiting for breakfast and has no new complaints at this time. Objective Last 24 Hour Vital Signs Date Time Temp Pulse Resp B/P (MAP) Pulse Ox O2 Delivery O2 Flow Rate FiO2 02/01/19 04:00 98.1 83 18 111/63 (79) 100 02/01/19 03:05 97.7 02/01/19 00:00 97.7 87 18 135/59 (84) 100 01/31/19 23:04 Room Air 01/31/19 20:00 98.6 85 18 107/62 (77) 100 01/31/19 16:01 97.7 92 20 125/77 (93) 100 01/31/19 16:00 98.1 83 20 116/70 (85) 100 01/31/19 12:00 97.0 89 20 124/79 (94) 99 01/31/19 09:00 Room Air Intake and Output 01/31/19 02/01/19 19:00 07:00 Intake Total 940 ml Output Total 450 ml Balance 490 ml Intake Oral 840 ml IV Total 100 ml Drainage Total 450 ml # Voids 3 3 # Bowel Movements 2 1 Laboratory Tests 01/31/19 09:00: Sodium Level 135L, Potassium Level 4.0, Chloride Level 105, Carbon Dioxide Level 23, Anion Gap 7, Blood Urea Nitrogen 9, Creatinine 1.0, Estimat Glomerular Filtration Rate 56.2, Glucose Level 113H, Calcium Level 7.3L, Total Bilirubin 0.5, Aspartate Amino Transf (AST/SGOT) 24, Alanine Aminotransferase ( ALT/SGPT) 16, Alkaline Phosphatase 210H, Total Protein 5.4L, Albumin 1.4L, Globulin 4.0, Albumin/Globulin Ratio 0.3L 02/01/19 07:10: Sodium Level 135L, Potassium Level 4.0, Chloride Level 107, Carbon Dioxide Level 25, Anion Gap 3L, Blood Urea Nitrogen 9, Creatinine 0.9, Estimat Glomerular Filtration Rate > 60, Glucose Level 91, Calcium Level 7.3L Height (Feet): 5 Height (Inches): 3.00 Weight (Pounds): 164 Objective GENERAL: Alert, awake, and oriented. LUNGS: Clear bilaterally. HEART: S1, S2 regular. ABDOMEN: Tenderness to palpation with biliary stent noted. BACK: Range of motion is decreased in flexion, extension. EXTREMITIES: No cyanosis. No clubbing. No edema. NEURO: No changes. Doug Reid Feb 01, 2019 08:55
[2019-02-01] MEDS: Relistor 12mg/0.6ml Vial SUBQ SCH (09:00)
--- NOTE | 2019-02-01 11:16 | GI Progress Note ---
Assessment/Plan Problems: (1) Pancreatic cancer ICD Codes: C25.9 - Malignant neoplasm of pancreas, unspecified SNOMED: 307659240 (2) Biliary drain displacement ICD Codes: T85.520A - Displacement of bile duct prosthesis, initial encounter SNOMED: 680828108 (3) Abdominal pain ICD Codes: R10.9 - Unspecified abdominal pain SNOMED: 44445083 Status: stable Status Narrative Discussed with Dr. Rocha. Assessment/Plan Abdominal pelvis CT reviewed 1. Appropriately positioned percutaneous left biliary drain with mild intrahepatic biliary ductal dilatation. 2. Ill-defined pancreatic head/proximal body mass, likely corresponding to stated history of pancreatic neoplasm. Please note evaluation of size and vascular involvement of pancreatic masses is incomplete prior examinations and without multiphasic pancreatic protocol. 3. 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 SMV confluence is not visualized. 4. Color wall thickening with pericholecystic fluid; in the absence of distended gallbladder, these findings are critical for acute pancreatitis and clinical correlation is recommended. Indium scan suggest enteritis with diffuse abnormal bowel uptake. In addition abnormal uptake in the face or upper neck region. Status post ultrasound-guided aspiration of the posterior hepatic subcapsular collection. No plans for GI procedures at this time. Symptomatic treatment bowel regime, colace + miralax. Relistor q weekly. surgical recommendations pain management recommendations ppi Trend LFTs advance diet PT evaluation We will follow-up The patient was seen and examined at bedside and all new and available data was reviewed in the patients chart. I agree with the above findings, impression and plan. (Patient seen earlier today. Signature stamp does not reflect patient encounter time.). - Indra Rocha MD Subjective Subjective Patient still complains of abdominal pain, improved with medication Objective Last 24 Hour Vital Signs Date Time Temp Pulse Resp B/P (MAP) Pulse Ox O2 Delivery O2 Flow Rate FiO2 02/01/19 04:00 98.1 83 18 111/63 (79) 100 02/01/19 03:05 97.7 02/01/19 00:00 97.7 87 18 135/59 (84) 100 01/31/19 23:04 Room Air 01/31/19 20:00 98.6 85 18 107/62 (77) 100 01/31/19 16:01 97.7 92 20 125/77 (93) 100 01/31/19 16:00 98.1 83 20 116/70 (85) 100 01/31/19 12:00 97.0 89 20 124/79 (94) 99 Intake and Output 01/31/19 02/01/19 19:00 07:00 Intake Total 940 ml Output Total 450 ml Balance 490 ml Intake Oral 840 ml IV Total 100 ml Drainage Total 450 ml # Voids 3 3 # Bowel Movements 2 1 Laboratory Tests Test 02/01/19 07:10 Sodium Level 135 MMOL/L (136-145) L Potassium Level 4.0 MMOL/L (3.5-5.1) Chloride Level 107 MMOL/L (98-107) Carbon Dioxide Level 25 MMOL/L (21-32) Anion Gap 3 mmol/L (5-15) L Blood Urea Nitrogen 9 mg/dL (7-18) Creatinine 0.9 MG/DL (0.55-1.30) Estimat Glomerular Filtration Rate > 60 mL/min (>60) Glucose Level 91 MG/DL (74-106) Calcium Level 7.3 MG/DL (8.5-10.1) L Height (Feet): 5 Height (Inches): 3.00 Weight (Pounds): 164 General Appearance: WD/WN, no apparent distress, alert Cardiovascular: normal rate Respiratory/Chest: normal breath sounds, no respiratory distress Abdominal Exam: normal bowel sounds, non tender, soft Extremities: normal range of motion, non-tender Jeff Rueda NP Feb 01, 2019 11:16
[2019-02-01 11:35] LABS: INR 1.4 (0.9-1.1)
--- NOTE | 2019-02-01 11:45 | NUR ---
RD ASSESSMENT & RECOMMENDATIONS SEE CARE ACTIVITY FOR COMPLETE ASSESSMENT DAILY ESTIMATED NEEDS: Needs based on CA/ 59kg 25-30 kcals/kg 8159-6148 total kcals 1-1.5 g protein/kg 59-89 g total protein 25-30 mL/kg 1761-9465 total fluid mLs NUTRITION DIAGNOSIS: Increased kcal/prot needs R/T catabolic dx as evidenced by dx of pancreatitis CA, s/p recent chemo, CA 19-9 level 688 CURRENT DIET:REGULAR- NPO for procedure today PO DIET RECOMMENDATIONS: Liberalized REGULAR diet as tolerated, rec small frequent meals ADDITIONAL RECOMMENDATIONS: * Standing weight for accurate CBW (pt reports standing be=918nko on 01/26) VS bedscale wt of 73kg (160lbs) * Ensure Enlive w/ breakfast and dinner as tolerated(350kcal/20g prot each) * Rec small frequent meals -> add snacks TID in b/w meals * Add probiotics: + diarrhea, on abx * Monitor lytes and hydration status closely w/ diarrhea -> replete lytes prn / updated CMP
--- NOTE | 2019-02-01 13:25 | NUR ---
PT NOTE Attempted to see patient for PT treatment. Patient off floor for procedure. Will follow up tomorrow.
--- NOTE | 2019-02-01 13:49 | NUR ---
*-* INSURANCE *-* ALL AVAILABLE CLINICALS HAVE BEEN FAXED TO: REF#[id number] - FOR TRACKING PURPOSES THIS IS SHARED RISK NO CM ASSIGNED PH#[phone] FAX#[phone] RE[facility]CL[facility]ICALS & [facility]#[id number] CM: TAMMY PH#[phone] EXT [id number] FAX#[phone] REVIEWS/CLINICALS
--- NOTE | 2019-02-01 14:28 | General Progress Note ---
Assessment/Plan Problem List: (1) SOB (shortness of breath) ICD Codes: R06.02 - Shortness of breath SNOMED: 311054974 (2) Nausea & vomiting ICD Codes: R11.2 - Nausea with vomiting, unspecified SNOMED: 72533942 (3) Malnutrition ICD Codes: E46 - Unspecified protein-calorie malnutrition SNOMED: 63726417 (4) UTI (urinary tract infection) ICD Codes: N39.0 - Urinary tract infection, site not specified SNOMED: 15253340 (5) Abdominal pain ICD Codes: R10.9 - Unspecified abdominal pain SNOMED: 53229730 (6) Biliary drain displacement ICD Codes: T85.520A - Displacement of bile duct prosthesis, initial encounter SNOMED: 388886675 (7) Pancreatic cancer ICD Codes: C25.9 - Malignant neoplasm of pancreas, unspecified SNOMED: 989031461 Status: stable, progressing Assessment/Plan: pt diet pain control abx cbc bmp am dc plan snf Subjective Constitutional: Reports: weakness Allergies: Coded Allergies: No Known Allergies (Unverified , 01/12/19) All Systems: reviewed and negative except above Subjective sl nausea abd pain Objective Last 24 Hour Vital Signs Date Time Temp Pulse Resp B/P (MAP) Pulse Ox O2 Delivery O2 Flow Rate FiO2 02/01/19 13:50 85 18 143/83 (103) 99 02/01/19 13:45 84 18 146/81 (102) 99 02/01/19 13:40 87 18 150/83 (105) 99 02/01/19 13:35 84 18 138/78 (98) 97 02/01/19 13:30 83 18 147/81 (103) 99 02/01/19 13:25 84 18 122/67 (85) 98 02/01/19 13:15 83 18 02/01/19 12:00 97.9 82 16 118/75 (89) 96 02/01/19 09:00 Room Air 02/01/19 08:00 97.0 91 15 117/78 (91) 98 02/01/19 04:00 98.1 83 18 111/63 (79) 100 02/01/19 03:05 97.7 02/01/19 00:00 97.7 87 18 135/59 (84) 100 01/31/19 23:04 Room Air 01/31/19 20:00 98.6 85 18 107/62 (77) 100 01/31/19 16:01 97.7 92 20 125/77 (93) 100 01/31/19 16:00 98.1 83 20 116/70 (85) 100 Intake and Output 01/31/19 02/01/19 19:00 07:00 Intake Total 940 ml Output Total 450 ml Balance 490 ml Intake Oral 840 ml IV Total 100 ml Drainage Total 450 ml # Voids 3 3 # Bowel Movements 2 1 Laboratory Tests 02/01/19 07:10: Sodium Level 135L, Potassium Level 4.0, Chloride Level 107, Carbon Dioxide Level 25, Anion Gap 3L, Blood Urea Nitrogen 9, Creatinine 0.9, Estimat Glomerular Filtration Rate > 60, Glucose Level 91, Calcium Level 7.3L 02/01/19 11:10: Prothrombin Time 15.0H, Prothromb Time International Ratio 1.4H, Activated Partial Thromboplast Time 36H Height (Feet): 5 Height (Inches): 3.00 Weight (Pounds): 164 General Appearance: lethargic EENT: normal ENT inspection Neck: normal alignment Cardiovascular: normal peripheral pulses, normal rate, regular rhythm Respiratory/Chest: chest wall non-tender, lungs clear, normal breath sounds Abdomen: soft, hypoactive bowel sounds Extremities: normal inspection Edema: no edema noted Arm (L), no edema noted Arm (R), no edema noted Leg (L), no edema noted Leg (R), no edema noted Pedal (L), no edema noted Pedal (R), no edema noted Generalized Neurologic: responsive, motor weakness Skin: normal pigmentation, warm/dry Elvis Luke DO Feb 01, 2019 14:28
--- NOTE | 2019-02-01 14:36 | Nephrology Progress Note ---
Assessment/Plan Problem List: (1) Electrolyte abnormality (2) Pancreatic cancer (3) Biliary drain displacement (4) Abdominal pain (5) Malnutrition Assessment HypoKalemia HypoNatremia Abdominal pain. Nausea. Vomiting. UTI. Pancreatic cancer. Biliary drain displacement Malnutrition. 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 Subjective ROS Limited/Unobtainable: No Constitutional: Reports: malaise Objective Objective Last 24 Hour Vital Signs Date Time Temp Pulse Resp B/P (MAP) Pulse Ox O2 Delivery O2 Flow Rate FiO2 02/01/19 13:50 85 18 143/83 (103) 99 02/01/19 13:45 84 18 146/81 (102) 99 02/01/19 13:40 87 18 150/83 (105) 99 02/01/19 13:35 84 18 138/78 (98) 97 02/01/19 13:30 83 18 147/81 (103) 99 02/01/19 13:25 84 18 122/67 (85) 98 02/01/19 13:15 83 18 02/01/19 12:00 97.9 82 16 118/75 (89) 96 02/01/19 09:00 Room Air 02/01/19 08:00 97.0 91 15 117/78 (91) 98 02/01/19 04:00 98.1 83 18 111/63 (79) 100 02/01/19 03:05 97.7 02/01/19 00:00 97.7 87 18 135/59 (84) 100 01/31/19 23:04 Room Air 01/31/19 20:00 98.6 85 18 107/62 (77) 100 01/31/19 16:01 97.7 92 20 125/77 (93) 100 01/31/19 16:00 98.1 83 20 116/70 (85) 100 Intake and Output 01/31/19 02/01/19 19:00 07:00 Intake Total 940 ml Output Total 450 ml Balance 490 ml Intake Oral 840 ml IV Total 100 ml Drainage Total 450 ml # Voids 3 3 # Bowel Movements 2 1 Laboratory Tests 02/01/19 07:10: Sodium Level 135L, Potassium Level 4.0, Chloride Level 107, Carbon Dioxide Level 25, Anion Gap 3L, Blood Urea Nitrogen 9, Creatinine 0.9, Estimat Glomerular Filtration Rate > 60, Glucose Level 91, Calcium Level 7.3L 02/01/19 11:10: Prothrombin Time 15.0H, Prothromb Time International Ratio 1.4H, Activated Partial Thromboplast Time 36H Height (Feet): 5 Height (Inches): 3.00 Weight (Pounds): 164 General Appearance: no apparent distress Objective no change Kapil Turcios MD Feb 01, 2019 14:35
--- NOTE | 2019-02-01 14:36 | Surgery Progress Note ---
Surgery Progress Note Subjective Additional Comments new abdominal drain placed today no n/v/f/c comfortable improving Objective Last 24 Hour Vital Signs Date Time Temp Pulse Resp B/P (MAP) Pulse Ox O2 Delivery O2 Flow Rate FiO2 02/01/19 13:50 85 18 143/83 (103) 99 02/01/19 13:45 84 18 146/81 (102) 99 02/01/19 13:40 87 18 150/83 (105) 99 02/01/19 13:35 84 18 138/78 (98) 97 02/01/19 13:30 83 18 147/81 (103) 99 02/01/19 13:25 84 18 122/67 (85) 98 02/01/19 13:15 83 18 02/01/19 12:00 97.9 82 16 118/75 (89) 96 02/01/19 09:00 Room Air 02/01/19 08:00 97.0 91 15 117/78 (91) 98 02/01/19 04:00 98.1 83 18 111/63 (79) 100 02/01/19 03:05 97.7 02/01/19 00:00 97.7 87 18 135/59 (84) 100 01/31/19 23:04 Room Air 01/31/19 20:00 98.6 85 18 107/62 (77) 100 01/31/19 16:01 97.7 92 20 125/77 (93) 100 01/31/19 16:00 98.1 83 20 116/70 (85) 100 I&O Intake and Output 01/31/19 02/01/19 19:00 07:00 Intake Total 940 ml Output Total 450 ml Balance 490 ml Intake Oral 840 ml IV Total 100 ml Drainage Total 450 ml # Voids 3 3 # Bowel Movements 2 1 Dressing: dry Wound: clean Cardiovascular: RSR Respiratory: clear Abdomen: soft, flat, non-tender, present bowel sounds Extremities: no edema, no tenderness, no cyanosis Laboratory Tests Test 02/01/19 07:10 02/01/19 11:10 Sodium Level 135 MMOL/L (136-145) L Potassium Level 4.0 MMOL/L (3.5-5.1) Chloride Level 107 MMOL/L (98-107) Carbon Dioxide Level 25 MMOL/L (21-32) Anion Gap 3 mmol/L (5-15) L Blood Urea Nitrogen 9 mg/dL (7-18) Creatinine 0.9 MG/DL (0.55-1.30) Estimat Glomerular Filtration Rate > 60 mL/min (>60) Glucose Level 91 MG/DL (74-106) Calcium Level 7.3 MG/DL (8.5-10.1) L Prothrombin Time 15.0 SEC (9.30-11.50) H Prothromb Time International Ratio 1.4 (0.9-1.1) H Activated Partial Thromboplast Time 36 SEC (23-33) H Plan Problems: (1) Abdominal pain Assessment & Plan: 63-year-old female patient with history of recently diagnosed pancreatic cancer in November 2018 presented to the emergency room at [facility] with complaint of abdominal pain for approximately 1 hour. Patient is status post a biliary drain placement at [facility] approximately 1 week ago. She reported that she had a first treatment of chemotherapy this past Thursday. The patient denied any nausea vomiting, denies any constipation or diarrhea. She states her pain medication was unable to relieve her pain. no fever or chills. labs as below. C Tnoted. surgery called to assist with care and management. tube checked Impression: Diffusely abnormal bowel uptake. Given findings on recent CT scan, this most likely represents enteritis, most likely infectious. Abnormal uptake in the face or upper neck to the left of midline, exact location uncertain. Consider neck CT for better characterization Mildly prominent pulmonary uptake, significance doubted okay for diet tube to drain IV abx d/c planning for SNF f/u with pcp / onc outpatient stable otherwise from surgical standpoint no acute surgical intervention planned Probably has extensive tumor burden given interventions and findings noted. No surgical recommendation at this time. Possible that fluid collection in case in the abdomen infected but to operate on this would be ill advised at this time and patient's current condition. Continue with antibiotics iv fluids trend labs will monitor and follow with exam thank you (2) Biliary drain displacement Assessment & Plan: Daughter was able to inform me with a lot of history. Seems patient unresectable initially and attempted biliary drain placed endoscopically but unsuccessful. A external biliary drain was placed by radiology. Would patient was getting her Port-A-Cath placed a another radiologist felt he could place a internal/external biliary drain and he was able to successfully place a internal/external biliary drain. Had the trade Since. Fell off and she has been without it to drainage recently. In evaluating the trade she has some bilious output from the drain and on imaging drain looks to be appropriately placed. Labs reviewed stable. drain placed to gravity as leaking Drain putting out a ton since placed on 2 bag IMPRESSION: 1. Appropriately positioned percutaneous left biliary drain with mild intrahepatic biliary ductal dilatation. 2. Ill-defined pancreatic head/proximal body mass, likely corresponding to stated history of pancreatic neoplasm. Please note evaluation of size and vascular involvement of pancreatic masses is incomplete prior examinations and without multiphasic pancreatic protocol. 3. 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 SMV confluence is not visualized. 4. Color wall thickening with pericholecystic fluid; in the absence of distended gallbladder, these findings are critical for acute pancreatitis and clinical correlation is recommended. Transhepatic biliary drain noted. 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 Abnormal liver with area of peripheral hypoechogenicity along the posterior right lobe margin. Suggest further evaluation with contrast CT. Obscured pancreas and aorta due to bowel gas. . Interval development of moderate small bowel dilatation. Transition to relatively decompressed terminal ileum demonstrated indicating this is probably a mechanical bowel obstruction. Pneumatosis suspected within one of the proximal small bowel segments in the upper abdomen. No evidence of perforation. Development of multiloculated ascites with prominent collections contiguous with the caudal end of the right lobe of the liver capsule, Morison's pouch and inferior to the right kidney. Other generalized mild ascites noted as well. Internal/external transhepatic biliary drainage catheter in good position. No imaging evidence for catheter malfunction or biliary obstruction. CT noted. likely internal leakage from internal external drain as it was noted to be backing put few days ago hence placed on drainage bag recommend outpatient f/u with oncology and her GI at primary facility to discuss placement of internal metallic larger drain and remove internal / external drain s/p abd drain placement micro noted labs improved on abx s/p new drain 02/01/ / d/c to SNF. f/u with outpatient onc f/u with outpatient GI for consideration of metallic biliary drain now that she has internal external thank you (3) Pancreatic cancer Assessment & Plan: Pancreatic cancer, non-resectable, based on patient's info. Had a Abdominal pelvis CT reviewed 1. Appropriately positioned percutaneous left biliary drain with mild intrahepatic biliary ductal dilatation. 2. Ill- defined pancreatic head/proximal body mass, likely corresponding to stated history of pancreatic neoplasm. Please note evaluation of size and vascular involvement of pancreatic masses is incomplete prior examinations and without multiphasic pancreatic protocol. 3. 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 She has already started rx Jim Gates Feb 01, 2019 14:36
--- NOTE | 2019-02-01 15:32 | Diagnostic Imaging Report ---
Indications: Abdominal fluid collection, previously drained. The percutaneous drain fell out. We are asked to replace the drain. Technique: Ultrasound used to localize optimal puncture site. Sterile prepping and draping of the right upper quadrant of the abdomen performed. Local anesthesia with 1% lidocaine. Dermatotomy made. Using ultrasound guidance a needle was advanced into the collection in question. After puncture, a 0.018 wire was advanced into the collection. This was exchanged for a 0.035 wire. Tract was dilated and a 8.5 Ivorian multiend hole pigtail catheter was advanced into the collection. Several cc of bloody material obtained and sent for bacteriology studies including cultures and sensitivities, Gram stain and anaerobes. There were no complications. Patient tolerated the procedure well. Further attempts at aspiration were not successful. The drain was left to suction. Findings: The collection in question is a hypoechoic collection adjacent to the liver between the anterior abdominal wall in the liver. The catheter tubing was successfully placed within the collection in question. This was documented sonographically and archived. Impression: Successful ultrasound-guided placement of a percutaneous drain within a fluid collection that was previously infected and previously addressed by a percutaneous drain which had accidentally fallen out yesterday.
--- NOTE | 2019-02-01 16:38 | NUR ---
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 97.0 HR 91 RR 15 B/P 117/78 WBC 15.0 IS; CEFTRIAXONE IV FLAGYL IV LOVENOX SUBC MED/SURG STATUS
--- NOTE | 2019-02-01 16:43 | Infectious Diseases Prog Note ---
Assessment/Plan Assessment/Plan Fever 01/13, SP Leukocytosis, fluctuating 01/14 bcx ng tumor related? Ileus related? biloma related? atelectasis? 01/24 Indium scan: Diffusely abnormal bowel uptake. Given findings on recent CT scan, this most likely represents enteritis, most likely infectious. Abnormal uptake in the face or upper neck to the left of midline, exact location uncertain. Consider neck CT for better characterization. Mildly prominent pulmonary uptake, significance doubted. On further review the images, activity in the right midabdomen is greater than would be accounted for acute spine hepatic activity, and there is significant activity inferior to the right lobe of the liver in the anterior abdomen. This correlates with a large loculated fluid collection demonstrated on recent CT scan of 01/20/2019, and may indicate infection of this collection. The smaller subcapsular collection in the posterior right hepatic lobe is difficult to differentiate from normal liver activity on this exam, so it is not possible to assess for the presence or absence of abnormal activity in this. 01/27 US: Aspiration of posterior hepatic subcapsular collection, yielding serous fluid which does not appear grossly infected. No drainage catheter placed , therefore, but a specimen was sent to the lab for analysis. Placement of 8.5 Latvian pigtail drainage catheter in anterior right lower quadrant intraperitoneal collection. This yielded borderline purulent appearing body brown fluid. Specimen sent to lab for analysis. 01/27 fluid: 76K WBC(92% PMN). cx: 3+ E coli 02/01: Successful ultrasound-guided placement of a percutaneous drain within a fluid collection that was previously infected and previously addressed by a percutaneous drain which had accidentally fallen out yesterday. PNA, CAP? -CXR: Patchy consolidation in the right lower lung, concerning for pneumonia. Mild pulmonary vascular congestion. -flu swab negative urine legionella antigen negative Abdominal pain Pancreatitis? lipase negative 01/12 CT abd/p: Appropriately positioned percutaneous left biliary drain with mild intrahepatic biliary ductal dilatation. Ill-defined pancreatic head/ proximal body mass, likely corresponding to stated history of pancreatic neoplasm. Please note evaluation of size and vascular involvement of pancreatic masses is incomplete prior examinations and without multiphasic pancreatic protocol. 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 SMV confluence is not visualized. Gallbladder wall thickening with pericholecystic fluid; in the absence of distended gallbladder, these findings are critical for acute pancreatitis and clinical correlation is recommended. 01/19 US Abd: Transhepatic biliary drain noted. 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 Abnormal liver with area of peripheral hypoechogenicity along the posterior right lobe margin. Suggest further evaluation with contrast CT. Obscured pancreas and aorta due to bowel gas. Trace ascites 01/20 CT A/P: Interval development of moderate small bowel dilatation. Transition to relatively decompressed terminal ileum demonstrated indicating this is probably a mechanical bowel obstruction. Pneumatosis suspected within one of the proximal small bowel segments in the upper abdomen. No evidence of perforation. Development of multiloculated ascites with prominent collections contiguous with the caudal end of the right lobe of the liver capsule, Morison's pouch and inferior to the right kidney. Other generalized mild ascites noted as well. Internal/external transhepatic biliary drainage catheter in good position. No imaging evidence for catheter malfunction or biliary obstruction. Right basilar consolidation versus atelectasis. Correlate for pneumonia. Trace bilateral pleural effusions. 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 Discussed risk of ciprofloxacin use including but not limited to aortic rupture and tendon rupture. Pt and daughter expressed understanding. Pt states that she prefers that over IV antibiotics. 01/30 SP Meropenem #6 01/25 SP Ceftriaxone #3, flagyl #1, vancomycin #11 01/22 SP Azithromycin #7 01/23 SP Zosyn #8 01/17 DC Tamiflu #2 -f/u cx -Monitor CBC/CMP, temperatures -f/u Bcx x2 -aspiration precautions Thank you for this consultation. Will continue to follow along with you. Subjective Allergies: Coded Allergies: No Known Allergies (Unverified , 01/12/19) Subjective Afebrile. Pt is awake. interactive. sp repeat drain placement Objective Vital Signs Last 24 Hour Vital Signs Date Time Temp Pulse Resp B/P (MAP) Pulse Ox O2 Delivery O2 Flow Rate FiO2 02/01/19 13:50 85 18 143/83 (103) 99 02/01/19 13:45 84 18 146/81 (102) 99 02/01/19 13:40 87 18 150/83 (105) 99 02/01/19 13:35 84 18 138/78 (98) 97 02/01/19 13:30 83 18 147/81 (103) 99 02/01/19 13:25 84 18 122/67 (85) 98 02/01/19 13:15 83 18 02/01/19 12:00 97.9 82 16 118/75 (89) 96 02/01/19 09:00 Room Air 02/01/19 08:00 97.0 91 15 117/78 (91) 98 02/01/19 04:00 98.1 83 18 111/63 (79) 100 02/01/19 03:05 97.7 02/01/19 00:00 97.7 87 18 135/59 (84) 100 01/31/19 23:04 Room Air 01/31/19 20:00 98.6 85 18 107/62 (77) 100 Height (Feet): 5 Height (Inches): 3.00 Weight (Pounds): 164 Objective Gen: NAD CV: RRR Resp: RRR Abd: hypoactive BS+. Diffusely TTP but worse RUQ. Ext: no edema Neuro: alert. Laboratory Tests Test 02/01/19 07:10 02/01/19 11:10 Sodium Level 135 MMOL/L (136-145) L Potassium Level 4.0 MMOL/L (3.5-5.1) Chloride Level 107 MMOL/L (98-107) Carbon Dioxide Level 25 MMOL/L (21-32) Anion Gap 3 mmol/L (5-15) L Blood Urea Nitrogen 9 mg/dL (7-18) Creatinine 0.9 MG/DL (0.55-1.30) Estimat Glomerular Filtration Rate > 60 mL/min (>60) Glucose Level 91 MG/DL (74-106) Calcium Level 7.3 MG/DL (8.5-10.1) L Prothrombin Time 15.0 SEC (9.30-11.50) H Prothromb Time International Ratio 1.4 (0.9-1.1) H Activated Partial Thromboplast Time 36 SEC (23-33) H Current Medications Medications (Trade) Dose Ordered Sig/Zuleima Route PRN Reason Start Time Stop Time Status Last Admin Dose Admin Acetaminophen (Tylenol) 650 mg Q8H PRN ORAL Mild Pain/Temp > 100.5 01/12/19 17:30 02/11/19 17:29 01/13/19 17:27 Bisacodyl (Dulcolax) 10 mg BIDPRN PRN RECTAL Constipation 01/16/19 07:45 02/15/19 07:44 01/19/19 18:34 Ceftriaxone Sodium 1 gm/ Dextrose 55 ml @ 110 mls/hr Q24H IVPB 01/30/19 22:00 02/06/19 21:59 01/31/19 22:15 Dextrose (Dextrose 50%) 25 ml Q30M PRN IV Hypoglycemia 01/12/19 13:45 02/11/19 13:44 Dextrose (Dextrose 50%) 50 ml Q30M PRN IV Hypoglycemia 01/12/19 13:45 02/11/19 13:44 Enoxaparin Sodium (Lovenox) 60 mg Q12HR@0600,1800 SUBQ 01/20/19 18:00 02/19/19 17:59 01/31/19 17:46 Fentanyl (Duragesic) 1 patch Q72H TDERMAL 01/25/19 12:00 02/08/19 11:59 01/31/19 12:21 Gabapentin (Neurontin) 300 mg THREE TIMES A DAY ORAL 01/19/19 18:00 02/18/19 17:59 01/31/19 17:45 Hydromorphone HCl (Dilaudid) 4 mg Q4H PRN ORAL Severe Breakthru Pain (>7) 01/31/19 10:54 02/07/19 10:53 02/01/19 15:08 Methylnaltrexone Donna (Relistor) 12 mg ONCE A WEEK SUBQ 02/01/19 09:00 03/03/19 08:59 Metronidazole 100 ml @ 100 mls/hr Q8HR IVPB 01/30/19 15:30 02/06/19 15:29 02/01/19 15:08 Miscellaneous Medication (fentaNYL Destruction) 1 ea Q72H MISC 01/25/19 11:59 02/24/19 11:58 01/31/19 12:17 Naloxone HCl (Narcan) 0.1 mg Q5M PRN IV Sedation scale 3 or 4 01/24/19 09:00 02/23/19 08:54 Ondansetron HCl (Zofran) 4 mg Q6H PRN IVP Nausea & Vomiting 01/12/19 13:45 02/11/19 13:44 01/26/19 08:08 Pantoprazole (Protonix) 40 mg EVERY 12 HOURS ORAL 01/27/19 21:00 02/26/19 20:59 01/31/19 20:55 Polyethylene Glycol (Miralax) 17 gm BEDTIME PRN ORAL constipation 01/22/19 10:30 02/15/19 20:59 Potassium Chloride (K-Dur) 40 meq TWICE A DAY ORAL 01/27/19 10:00 02/26/19 09:59 01/31/19 17:45 Simethicone (Mylicon) 80 mg BIDPRN PRN ORAL gas 01/18/19 21:45 02/17/19 21:44 01/21/19 14:38 Zolpidem Tartrate (Ambien) 5 mg HSPRN PRN ORAL Insomnia 01/26/19 21:00 02/02/19 20:59 02/01/19 04:47 Catalina Kirby MD Feb 01, 2019 16:43
--- NOTE | 2019-02-01 19:20 | NUR ---
NURSE NOTES: Received patient awake in bed, c/o 8/10 pain at this time, no s/s of acute distress. Bilateral biliary drain noted. IV access patent and intact, will administer abx as ordered. Bed low and locked, bedside commode noted in room within reach. Yellow socks on.
--- NOTE | 2019-02-01 19:20 | NUR ---
HAND-OFF: Report given to Renu BLOOD.
--- NOTE | 2019-02-01 19:30 | NUR ---
NURSE NOTES: No drainage noted in the collection bag of the right percutaneous drainage bag,a small amount of serosagunious drainage noted in the drainage tube. The left bilary drainage noted 450cc of green drainage.
--- NOTE | 2019-02-01 19:32 | NUR ---
NURSE NOTES: DR Davidson aware of patient INR 1.4,PTT 36.,PT 15.0 DR state okay to continue Lovenox as ordered.
[2019-02-01] MEDS: cefTRIAXone 1gm/D5W 55ml IVPB SCH ×2 (21:44)
[2019-02-02] VITALS: BP 122/78
[2019-02-02 04:00] VITALS: BP 130/82
[2019-02-02] MEDS: metroNIDAZOLE 500mg Premix IVPB SCH ×3 (05:49→21:49)
[2019-02-02] MEDS: Enoxaparin 60mg Inj SUBQ SCH ×2 (05:50→18:59)
[2019-02-02 06:28] LABS: EOSINOPHILS % (AUTO) 0.8 % (0.0-3.0); HEMATOCRIT 29.5 % (37.0-47.0); HEMOGLOBIN 9.9 G/DL (12.0-16.0); LYMPHOCYTES % (AUTO) 6.7 % (20.0-45.0); MEAN CORPUSCULAR VOLUME 94 FL (80-99); MONOCYTES % (AUTO) 11.9 % (1.0-10.0); NEUTROPHILS % (AUTO) 79.7 % (45.0-75.0); PLATELET COUNT 320 K/UL (150-450); RED BLOOD COUNT 3.15 M/UL (4.20-5.40); RED CELL DISTRIBUTION WIDTH 14.5 % (11.6-14.8); WHITE BLOOD COUNT 16.8 K/UL (4.8-10.8)
[2019-02-02 06:48] LABS: ANION GAP 6 mmol/L (5-15); BLOOD UREA NITROGEN 10 mg/dL (7-18); CALCIUM 7.3 MG/DL (8.5-10.1); CARBON DIOXIDE 25 MMOL/L (21-32); CHLORIDE 107 MMOL/L (98-107); CREATININE 0.9 MG/DL (0.55-1.30); POTASSIUM 4.2 MMOL/L (3.5-5.1); SODIUM 138 MMOL/L (136-145)
--- NOTE | 2019-02-02 07:38 | NUR ---
HAND-OFF: Report given to CAITIE Smart.
--- NOTE | 2019-02-02 08:11 | NUR ---
NURSE NOTES: Patient is awake and drain with bile color drainage noted.The right drain with a scant amount of serous sagunious drainage noted in the collection tube. Call light within reach.
[2019-02-02] MEDS: HYDROmorphone 4mg tab ORAL PRN ×4 (08:32→21:50)
--- NOTE | 2019-02-02 08:52 | General Progress Note ---
Assessment/Plan Assessment/Plan: (1) Intractable abdominal pain (2) Pancreatic cancer We will continue the Neurontin, Dilaudid and Fentanyl patch D/w Dr. Gonzales and he concurred. Subjective Date patient seen: Feb 02, 2019 Time patient seen: 07:00 - am Allergies: Coded Allergies: No Known Allergies (Unverified , 01/12/19) Subjective REVIEW OF SYSTEMS: Denies rash, fever, chills, sweating, dizziness, drowsiness, blurred vision, sore throat, change in weight. No shortness of breath or chest pain. No bowel or bladder incontinence. She is complaining of abdominal pain. SUBJECTIVE: Patient is in bed reports pain is slightly elevated however continues to be tolerated on the Fentanyl patch and Dilaudid. No new complaints at this time. Objective Last 24 Hour Vital Signs Date Time Temp Pulse Resp B/P (MAP) Pulse Ox O2 Delivery O2 Flow Rate FiO2 02/02/19 07:05 97.4 02/02/19 04:00 97.4 80 19 130/82 (98) 99 02/02/19 00:12 98.7 02/02/19 00:00 97.9 81 20 122/78 (93) 99 02/01/19 21:00 Room Air 02/01/19 16:00 98.7 72 19 126/74 (91) 99 02/01/19 13:50 85 18 143/83 (103) 99 02/01/19 13:45 84 18 146/81 (102) 99 02/01/19 13:40 87 18 150/83 (105) 99 02/01/19 13:35 84 18 138/78 (98) 97 02/01/19 13:30 83 18 147/81 (103) 99 02/01/19 13:25 84 18 122/67 (85) 98 02/01/19 13:15 83 18 02/01/19 12:00 97.9 82 16 118/75 (89) 96 02/01/19 09:00 Room Air Intake and Output 02/01/19 02/02/19 19:00 07:00 Output Total 750 ml 600 ml Balance -750 ml -600 ml Other 750 ml 600 ml # Voids 5 # Bowel Movements 1 Laboratory Tests 02/01/19 11:10: Prothrombin Time 15.0H, Prothromb Time International Ratio 1.4H, Activated Partial Thromboplast Time 36H 02/02/19 05:35: White Blood Count 16.8H, Red Blood Count 3.15L, Hemoglobin 9.9L, Hematocrit 29.5L, Mean Corpuscular Volume 94, Mean Corpuscular Hemoglobin 31.3H, Mean Corpuscular Hemoglobin Concent 33.4, Red Cell Distribution Width 14.5, Platelet Count 320, Mean Platelet Volume 6.4L, Neutrophils (%) (Auto) 79.7H, Lymphocytes (%) (Auto) 6.7L, Monocytes (%) (Auto) 11.9H, Eosinophils (%) (Auto) 0.8, Basophils (%) (Auto) 1.0, Sodium Level 138, Potassium Level 4.2, Chloride Level 107, Carbon Dioxide Level 25, Anion Gap 6, Blood Urea Nitrogen 10, Creatinine 0.9, Estimat Glomerular Filtration Rate > 60, Glucose Level 100, Calcium Level 7.3L Height (Feet): 5 Height (Inches): 3.00 Weight (Pounds): 133 Objective GENERAL: Alert, awake, and oriented. LUNGS: Clear bilaterally. HEART: S1, S2 regular. ABDOMEN: Tenderness to palpation with biliary stent noted. BACK: Range of motion is decreased in flexion, extension. EXTREMITIES: No cyanosis. No clubbing. No edema. NEURO: No changes. Doug Reid Feb 02, 2019 08:52
--- NOTE | 2019-02-02 09:13 | General Progress Note ---
Assessment/Plan Problem List: (1) SOB (shortness of breath) ICD Codes: R06.02 - Shortness of breath SNOMED: 595698924 (2) Nausea & vomiting ICD Codes: R11.2 - Nausea with vomiting, unspecified SNOMED: 05909774 (3) Malnutrition ICD Codes: E46 - Unspecified protein-calorie malnutrition SNOMED: 55247492 (4) UTI (urinary tract infection) ICD Codes: N39.0 - Urinary tract infection, site not specified SNOMED: 35211645 (5) Abdominal pain ICD Codes: R10.9 - Unspecified abdominal pain SNOMED: 07426634 (6) Biliary drain displacement ICD Codes: T85.520A - Displacement of bile duct prosthesis, initial encounter SNOMED: 885124244 (7) Pancreatic cancer ICD Codes: C25.9 - Malignant neoplasm of pancreas, unspecified SNOMED: 830996984 Status: unchanged Assessment/Plan: pt diet pain control abx cbc bmp am dc plan snf Subjective Constitutional: Reports: weakness Allergies: Coded Allergies: No Known Allergies (Unverified , 01/12/19) All Systems: reviewed and negative except above Subjective sl nausea abd pain Objective Last 24 Hour Vital Signs Date Time Temp Pulse Resp B/P (MAP) Pulse Ox O2 Delivery O2 Flow Rate FiO2 02/02/19 07:05 97.4 02/02/19 04:00 97.4 80 19 130/82 (98) 99 02/02/19 00:12 98.7 02/02/19 00:00 97.9 81 20 122/78 (93) 99 02/01/19 21:00 Room Air 02/01/19 16:00 98.7 72 19 126/74 (91) 99 02/01/19 13:50 85 18 143/83 (103) 99 02/01/19 13:45 84 18 146/81 (102) 99 02/01/19 13:40 87 18 150/83 (105) 99 02/01/19 13:35 84 18 138/78 (98) 97 02/01/19 13:30 83 18 147/81 (103) 99 02/01/19 13:25 84 18 122/67 (85) 98 02/01/19 13:15 83 18 02/01/19 12:00 97.9 82 16 118/75 (89) 96 Intake and Output 02/01/19 02/02/19 19:00 07:00 Output Total 750 ml 600 ml Balance -750 ml -600 ml Other 750 ml 600 ml # Voids 5 # Bowel Movements 1 Laboratory Tests 02/01/19 11:10: Prothrombin Time 15.0H, Prothromb Time International Ratio 1.4H, Activated Partial Thromboplast Time 36H 02/02/19 05:35: White Blood Count 16.8H, Red Blood Count 3.15L, Hemoglobin 9.9L, Hematocrit 29.5L, Mean Corpuscular Volume 94, Mean Corpuscular Hemoglobin 31.3H, Mean Corpuscular Hemoglobin Concent 33.4, Red Cell Distribution Width 14.5, Platelet Count 320, Mean Platelet Volume 6.4L, Neutrophils (%) (Auto) 79.7H, Lymphocytes (%) (Auto) 6.7L, Monocytes (%) (Auto) 11.9H, Eosinophils (%) (Auto) 0.8, Basophils (%) (Auto) 1.0, Sodium Level 138, Potassium Level 4.2, Chloride Level 107, Carbon Dioxide Level 25, Anion Gap 6, Blood Urea Nitrogen 10, Creatinine 0.9, Estimat Glomerular Filtration Rate > 60, Glucose Level 100, Calcium Level 7.3L Height (Feet): 5 Height (Inches): 3.00 Weight (Pounds): 133 General Appearance: lethargic EENT: normal ENT inspection Neck: normal alignment Cardiovascular: normal peripheral pulses, normal rate, regular rhythm Respiratory/Chest: chest wall non-tender, lungs clear, normal breath sounds Abdomen: soft, hypoactive bowel sounds Extremities: normal inspection Edema: no edema noted Arm (L), no edema noted Arm (R), no edema noted Leg (L), no edema noted Leg (R), no edema noted Pedal (L), no edema noted Pedal (R), no edema noted Generalized Neurologic: motor weakness Skin: normal pigmentation, warm/dry Elvis Luke DO Feb 02, 2019 09:13
[2019-02-02 09:31] VITALS: BP 114/77
--- NOTE | 2019-02-02 10:15 | Diagnostic Imaging Report ---
APPROVED REPORT CPT Code: 25832 Present Symptoms Comments: BILATERAL LEGS PAIN. BILATERAL: Imaging reveals a patent deep venous system bilaterally. There is no evidence of thrombus within the femoral, popliteal or tibial segments. The greater saphenous veins are also within normal limits. Doppler indicates normal spontaneous flow within these segments.
[2019-02-02 12:00] VITALS: BP 130/79
--- NOTE | 2019-02-02 12:57 | GI Progress Note ---
Assessment/Plan Problems: (1) Pancreatic cancer ICD Codes: C25.9 - Malignant neoplasm of pancreas, unspecified SNOMED: 065370144 (2) Biliary drain displacement ICD Codes: T85.520A - Displacement of bile duct prosthesis, initial encounter SNOMED: 352375316 (3) Abdominal pain ICD Codes: R10.9 - Unspecified abdominal pain SNOMED: 61591360 Status: stable Status Narrative Discussed with Dr. Rocha. Assessment/Plan Abdominal pelvis CT reviewed 1. Appropriately positioned percutaneous left biliary drain with mild intrahepatic biliary ductal dilatation. 2. Ill-defined pancreatic head/proximal body mass, likely corresponding to stated history of pancreatic neoplasm. Please note evaluation of size and vascular involvement of pancreatic masses is incomplete prior examinations and without multiphasic pancreatic protocol. 3. 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 SMV confluence is not visualized. 4. Color wall thickening with pericholecystic fluid; in the absence of distended gallbladder, these findings are critical for acute pancreatitis and clinical correlation is recommended. Indium scan suggest enteritis with diffuse abnormal bowel uptake. In addition abnormal uptake in the face or upper neck region. Status post ultrasound-guided aspiration of the posterior hepatic subcapsular collection. No plans for GI procedures at this time, dc planning Symptomatic treatment bowel regime, colace + miralax. Relistor q weekly. surgical recommendations pain management recommendations ppi Trend LFTs advance diet PT evaluation We will follow-up The patient was seen and examined at bedside and all new and available data was reviewed in the patients chart. I agree with the above findings, impression and plan. (Patient seen earlier today. Signature stamp does not reflect patient encounter time.). - Indra Rocha MD Subjective Subjective Patient still complains of abdominal pain, improved with medication Objective Last 24 Hour Vital Signs Date Time Temp Pulse Resp B/P (MAP) Pulse Ox O2 Delivery O2 Flow Rate FiO2 02/02/19 12:00 98.1 87 16 130/79 (96) 97 02/02/19 09:31 96.8 87 17 114/77 (89) 98 02/02/19 07:05 97.4 02/02/19 04:00 97.4 80 19 130/82 (98) 99 02/02/19 00:12 98.7 02/02/19 00:00 97.9 81 20 122/78 (93) 99 02/01/19 21:00 Room Air 02/01/19 16:00 98.7 72 19 126/74 (91) 99 02/01/19 13:50 85 18 143/83 (103) 99 02/01/19 13:45 84 18 146/81 (102) 99 02/01/19 13:40 87 18 150/83 (105) 99 02/01/19 13:35 84 18 138/78 (98) 97 02/01/19 13:30 83 18 147/81 (103) 99 02/01/19 13:25 84 18 122/67 (85) 98 02/01/19 13:15 83 18 Intake and Output 02/01/19 02/02/19 19:00 07:00 Output Total 750 ml 600 ml Balance -750 ml -600 ml Other 750 ml 600 ml # Voids 5 # Bowel Movements 1 Laboratory Tests Test 02/02/19 05:35 White Blood Count 16.8 K/UL (4.8-10.8) H Red Blood Count 3.15 M/UL (4.20-5.40) L Hemoglobin 9.9 G/DL (12.0-16.0) L Hematocrit 29.5 % (37.0-47.0) L Mean Corpuscular Volume 94 FL (80-99) Mean Corpuscular Hemoglobin 31.3 PG (27.0-31.0) H Mean Corpuscular Hemoglobin Concent 33.4 G/DL (32.0-36.0) Red Cell Distribution Width 14.5 % (11.6-14.8) Platelet Count 320 K/UL (150-450) Mean Platelet Volume 6.4 FL (6.5-10.1) L Neutrophils (%) (Auto) 79.7 % (45.0-75.0) H Lymphocytes (%) (Auto) 6.7 % (20.0-45.0) L Monocytes (%) (Auto) 11.9 % (1.0-10.0) H Eosinophils (%) (Auto) 0.8 % (0.0-3.0) Basophils (%) (Auto) 1.0 % (0.0-2.0) Sodium Level 138 MMOL/L (136-145) Potassium Level 4.2 MMOL/L (3.5-5.1) Chloride Level 107 MMOL/L (98-107) Carbon Dioxide Level 25 MMOL/L (21-32) Anion Gap 6 mmol/L (5-15) Blood Urea Nitrogen 10 mg/dL (7-18) Creatinine 0.9 MG/DL (0.55-1.30) Estimat Glomerular Filtration Rate > 60 mL/min (>60) Glucose Level 100 MG/DL (74-106) Calcium Level 7.3 MG/DL (8.5-10.1) L Microbiology Date/Time Source Procedure Growth Status 02/01/19 14:00 Abdominal Abscess Anaerobic Culture - Preliminary NO GROWTH Resulted Height (Feet): 5 Height (Inches): 3.00 Weight (Pounds): 133 General Appearance: WD/WN, no apparent distress, alert Cardiovascular: normal rate Respiratory/Chest: normal breath sounds, no respiratory distress Abdominal Exam: normal bowel sounds, non tender, soft Extremities: normal range of motion, non-tender Jeff Rueda NP Feb 02, 2019 12:57
--- NOTE | 2019-02-02 13:45 | Nephrology Progress Note ---
Assessment/Plan Problem List: (1) Electrolyte abnormality (2) Pancreatic cancer (3) Biliary drain displacement (4) Abdominal pain (5) Malnutrition Assessment HypoKalemia HypoNatremia Abdominal pain. Nausea. Vomiting. UTI. Pancreatic cancer. Biliary drain displacement Malnutrition. 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 Subjective ROS Limited/Unobtainable: No Constitutional: Reports: malaise Objective Objective Last 24 Hour Vital Signs Date Time Temp Pulse Resp B/P (MAP) Pulse Ox O2 Delivery O2 Flow Rate FiO2 02/02/19 12:00 98.1 87 16 130/79 (96) 97 02/02/19 09:31 96.8 87 17 114/77 (89) 98 02/02/19 07:05 97.4 02/02/19 04:00 97.4 80 19 130/82 (98) 99 02/02/19 00:12 98.7 02/02/19 00:00 97.9 81 20 122/78 (93) 99 02/01/19 21:00 Room Air 02/01/19 16:00 98.7 72 19 126/74 (91) 99 02/01/19 13:50 85 18 143/83 (103) 99 Intake and Output 02/01/19 02/02/19 19:00 07:00 Output Total 750 ml 600 ml Balance -750 ml -600 ml Other 750 ml 600 ml # Voids 5 # Bowel Movements 1 Laboratory Tests 02/02/19 05:35: White Blood Count 16.8H, Red Blood Count 3.15L, Hemoglobin 9.9L, Hematocrit 29.5L, Mean Corpuscular Volume 94, Mean Corpuscular Hemoglobin 31.3H, Mean Corpuscular Hemoglobin Concent 33.4, Red Cell Distribution Width 14.5, Platelet Count 320, Mean Platelet Volume 6.4L, Neutrophils (%) (Auto) 79.7H, Lymphocytes (%) (Auto) 6.7L, Monocytes (%) (Auto) 11.9H, Eosinophils (%) (Auto) 0.8, Basophils (%) (Auto) 1.0, Sodium Level 138, Potassium Level 4.2, Chloride Level 107, Carbon Dioxide Level 25, Anion Gap 6, Blood Urea Nitrogen 10, Creatinine 0.9, Estimat Glomerular Filtration Rate > 60, Glucose Level 100, Calcium Level 7.3L Height (Feet): 5 Height (Inches): 3.00 Weight (Pounds): 133 General Appearance: no apparent distress Objective no change Kapil Turcios MD Feb 02, 2019 13:45
--- NOTE | 2019-02-02 14:46 | Infectious Diseases Prog Note ---
Assessment/Plan Assessment/Plan Fever 01/13, SP Leukocytosis, fluctuating 01/14 bcx ng tumor related? Ileus related? biloma related? atelectasis? 01/24 Indium scan: Diffusely abnormal bowel uptake. Given findings on recent CT scan, this most likely represents enteritis, most likely infectious. Abnormal uptake in the face or upper neck to the left of midline, exact location uncertain. Consider neck CT for better characterization. Mildly prominent pulmonary uptake, significance doubted. On further review the images, activity in the right midabdomen is greater than would be accounted for acute spine hepatic activity, and there is significant activity inferior to the right lobe of the liver in the anterior abdomen. This correlates with a large loculated fluid collection demonstrated on recent CT scan of 01/20/2019, and may indicate infection of this collection. The smaller subcapsular collection in the posterior right hepatic lobe is difficult to differentiate from normal liver activity on this exam, so it is not possible to assess for the presence or absence of abnormal activity in this. 01/27 US: Aspiration of posterior hepatic subcapsular collection, yielding serous fluid which does not appear grossly infected. No drainage catheter placed , therefore, but a specimen was sent to the lab for analysis. Placement of 8.5 [place] pigtail drainage catheter in anterior right lower quadrant intraperitoneal collection. This yielded borderline purulent appearing body brown fluid. Specimen sent to lab for analysis. 01/27 fluid: 76K WBC(92% PMN). cx: 3+ E coli 02/01: Successful ultrasound-guided placement of a percutaneous drain within a fluid collection that was previously infected and previously addressed by a percutaneous drain which had accidentally fallen out yesterday. PNA, CAP? -CXR: Patchy consolidation in the right lower lung, concerning for pneumonia. Mild pulmonary vascular congestion. -flu swab negative urine legionella antigen negative Abdominal pain Pancreatitis? lipase negative 01/12 CT abd/p: Appropriately positioned percutaneous left biliary drain with mild intrahepatic biliary ductal dilatation. Ill-defined pancreatic head/ proximal body mass, likely corresponding to stated history of pancreatic neoplasm. Please note evaluation of size and vascular involvement of pancreatic masses is incomplete prior examinations and without multiphasic pancreatic protocol. 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 SMV confluence is not visualized. Gallbladder wall thickening with pericholecystic fluid; in the absence of distended gallbladder, these findings are critical for acute pancreatitis and clinical correlation is recommended. 01/19 US Abd: Transhepatic biliary drain noted. 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 Abnormal liver with area of peripheral hypoechogenicity along the posterior right lobe margin. Suggest further evaluation with contrast CT. Obscured pancreas and aorta due to bowel gas. Trace ascites 01/20 CT A/P: Interval development of moderate small bowel dilatation. Transition to relatively decompressed terminal ileum demonstrated indicating this is probably a mechanical bowel obstruction. Pneumatosis suspected within one of the proximal small bowel segments in the upper abdomen. No evidence of perforation. Development of multiloculated ascites with prominent collections contiguous with the caudal end of the right lobe of the liver capsule, Morison's pouch and inferior to the right kidney. Other generalized mild ascites noted as well. Internal/external transhepatic biliary drainage catheter in good position. No imaging evidence for catheter malfunction or biliary obstruction. Right basilar consolidation versus atelectasis. Correlate for pneumonia. Trace bilateral pleural effusions. Anasarca recently diagnosed pancreatic CA 11/2018 - s/p biliary drain 1 week [facility] O[facility] at [facility] - 1st chemotherapy treatment 01/10/19 tobacco abuse Plan: Ceftriaxone, flagyl #4...f/u repeat drainage cx. if negative, fluid collection likely now sterile(seroma, biloma, hematoma) and will consider very short duration of antibiotics. ok to DC to lower level of care. Still pending facility. 01/30 SP Meropenem #6 01/25 SP Ceftriaxone #3, flagyl #1, vancomycin #11 01/22 SP Azithromycin #7 01/23 SP Zosyn #8 01/17 DC Tamiflu #2 -f/u cx -Monitor CBC/CMP, temperatures -f/u Bcx x2 -aspiration precautions Thank you for this consultation. Will continue to follow along with you. Subjective Allergies: Coded Allergies: No Known Allergies (Unverified , 01/12/19) Subjective Afebrile. WBC better. SP drain replacement with old blood per radiologist. cx ngtd Reports discomfort at tube site Objective Vital Signs Last 24 Hour Vital Signs Date Time Temp Pulse Resp B/P (MAP) Pulse Ox O2 Delivery O2 Flow Rate FiO2 02/02/19 12:00 98.1 87 16 130/79 (96) 97 02/02/19 09:31 96.8 87 17 114/77 (89) 98 02/02/19 07:05 97.4 02/02/19 04:00 97.4 80 19 130/82 (98) 99 02/02/19 00:12 98.7 02/02/19 00:00 97.9 81 20 122/78 (93) 99 02/01/19 21:00 Room Air 02/01/19 16:00 98.7 72 19 126/74 (91) 99 Height (Feet): 5 Height (Inches): 3.00 Weight (Pounds): 133 Objective Gen: NAD CV: RRR Resp: RRR Abd: hypoactive BS+. Diffusely TTP but worse RUQ. Ext: no edema Neuro: alert. Microbiology Date/Time Source Procedure Growth Status 02/01/19 14:00 Abdominal Abscess Anaerobic Culture - Preliminary NO GROWTH Resulted Laboratory Tests Test 02/02/19 05:35 White Blood Count 16.8 K/UL (4.8-10.8) H Red Blood Count 3.15 M/UL (4.20-5.40) L Hemoglobin 9.9 G/DL (12.0-16.0) L Hematocrit 29.5 % (37.0-47.0) L Mean Corpuscular Volume 94 FL (80-99) Mean Corpuscular Hemoglobin 31.3 PG (27.0-31.0) H Mean Corpuscular Hemoglobin Concent 33.4 G/DL (32.0-36.0) Red Cell Distribution Width 14.5 % (11.6-14.8) Platelet Count 320 K/UL (150-450) Mean Platelet Volume 6.4 FL (6.5-10.1) L Neutrophils (%) (Auto) 79.7 % (45.0-75.0) H Lymphocytes (%) (Auto) 6.7 % (20.0-45.0) L Monocytes (%) (Auto) 11.9 % (1.0-10.0) H Eosinophils (%) (Auto) 0.8 % (0.0-3.0) Basophils (%) (Auto) 1.0 % (0.0-2.0) Sodium Level 138 MMOL/L (136-145) Potassium Level 4.2 MMOL/L (3.5-5.1) Chloride Level 107 MMOL/L (98-107) Carbon Dioxide Level 25 MMOL/L (21-32) Anion Gap 6 mmol/L (5-15) Blood Urea Nitrogen 10 mg/dL (7-18) Creatinine 0.9 MG/DL (0.55-1.30) Estimat Glomerular Filtration Rate > 60 mL/min (>60) Glucose Level 100 MG/DL (74-106) Calcium Level 7.3 MG/DL (8.5-10.1) L Current Medications Medications (Trade) Dose Ordered Sig/Zuleima Route PRN Reason Start Time Stop Time Status Last Admin Dose Admin Acetaminophen (Tylenol) 650 mg Q8H PRN ORAL Mild Pain/Temp > 100.5 01/12/19 17:30 02/11/19 17:29 02/02/19 06:35 Bisacodyl (Dulcolax) 10 mg BIDPRN PRN RECTAL Constipation 01/16/19 07:45 02/15/19 07:44 01/19/19 18:34 Ceftriaxone Sodium 1 gm/ Dextrose 55 ml @ 110 mls/hr Q24H IVPB 01/30/19 22:00 02/06/19 21:59 02/01/19 21:44 Dextrose (Dextrose 50%) 25 ml Q30M PRN IV Hypoglycemia 01/12/19 13:45 02/11/19 13:44 Dextrose (Dextrose 50%) 50 ml Q30M PRN IV Hypoglycemia 01/12/19 13:45 02/11/19 13:44 Enoxaparin Sodium (Lovenox) 60 mg Q12HR@0600,1800 SUBQ 01/20/19 18:00 02/19/19 17:59 02/02/19 05:50 Fentanyl (Duragesic) 1 patch Q72H TDERMAL 01/25/19 12:00 02/08/19 11:59 01/31/19 12:21 Gabapentin (Neurontin) 300 mg THREE TIMES A DAY ORAL 01/19/19 18:00 02/18/19 17:59 02/02/19 13:42 Hydromorphone HCl (Dilaudid) 4 mg Q4H PRN ORAL Severe Breakthru Pain (>7) 01/31/19 10:54 02/07/19 10:53 02/02/19 12:37 Methylnaltrexone [place] (Relistor) 12 mg ONCE A WEEK SUBQ 02/01/19 09:00 03/03/19 08:59 Metronidazole 100 ml @ 100 mls/hr Q8HR IVPB 01/30/19 15:30 02/06/19 15:29 02/02/19 13:52 Miscellaneous Medication (fentaNYL Destruction) 1 ea Q72H MISC 01/25/19 11:59 02/24/19 11:58 01/31/19 12:17 Naloxone HCl (Narcan) 0.1 mg Q5M PRN IV Sedation scale 3 or 4 01/24/19 09:00 02/23/19 08:54 Ondansetron HCl (Zofran) 4 mg Q6H PRN IVP Nausea & Vomiting 01/12/19 13:45 02/11/19 13:44 01/26/19 08:08 Pantoprazole (Protonix) 40 mg EVERY 12 HOURS ORAL 01/27/19 21:00 02/26/19 20:59 02/02/19 08:31 Polyethylene Glycol (Miralax) 17 gm BEDTIME PRN ORAL constipation 01/22/19 10:30 02/15/19 20:59 Potassium Chloride (K-Dur) 40 meq TWICE A DAY ORAL 01/27/19 10:00 02/26/19 09:59 02/02/19 08:31 Simethicone (Mylicon) 80 mg BIDPRN PRN ORAL gas 01/18/19 21:45 02/17/19 21:44 01/21/19 14:38 Zolpidem Tartrate (Ambien) 5 mg HSPRN PRN ORAL Insomnia 01/26/19 21:00 02/02/19 20:59 02/01/19 23:06 Catalina Kirby MD Feb 02, 2019 14:46
--- NOTE | 2019-02-02 15:49 | Surgery Progress Note ---
Surgery Progress Note Subjective Additional Comments labs improving resting comfortable Objective Last 24 Hour Vital Signs Date Time Temp Pulse Resp B/P (MAP) Pulse Ox O2 Delivery O2 Flow Rate FiO2 02/02/19 12:00 98.1 87 16 130/79 (96) 97 02/02/19 09:31 96.8 87 17 114/77 (89) 98 02/02/19 09:00 Room Air 02/02/19 07:05 97.4 02/02/19 04:00 97.4 80 19 130/82 (98) 99 02/02/19 00:12 98.7 02/02/19 00:00 97.9 81 20 122/78 (93) 99 02/01/19 21:00 Room Air 02/01/19 16:00 98.7 72 19 126/74 (91) 99 I&O Intake and Output 02/01/19 02/02/19 19:00 07:00 Output Total 750 ml 600 ml Balance -750 ml -600 ml Other 750 ml 600 ml # Voids 5 # Bowel Movements 1 Dressing: dry Wound: clean Drains: other Cardiovascular: RSR Respiratory: clear Abdomen: soft, flat, non-tender, present bowel sounds Extremities: no edema, no tenderness, no cyanosis Laboratory Tests Test 02/02/19 05:35 White Blood Count 16.8 K/UL (4.8-10.8) H Red Blood Count 3.15 M/UL (4.20-5.40) L Hemoglobin 9.9 G/DL (12.0-16.0) L Hematocrit 29.5 % (37.0-47.0) L Mean Corpuscular Volume 94 FL (80-99) Mean Corpuscular Hemoglobin 31.3 PG (27.0-31.0) H Mean Corpuscular Hemoglobin Concent 33.4 G/DL (32.0-36.0) Red Cell Distribution Width 14.5 % (11.6-14.8) Platelet Count 320 K/UL (150-450) Mean Platelet Volume 6.4 FL (6.5-10.1) L Neutrophils (%) (Auto) 79.7 % (45.0-75.0) H Lymphocytes (%) (Auto) 6.7 % (20.0-45.0) L Monocytes (%) (Auto) 11.9 % (1.0-10.0) H Eosinophils (%) (Auto) 0.8 % (0.0-3.0) Basophils (%) (Auto) 1.0 % (0.0-2.0) Sodium Level 138 MMOL/L (136-145) Potassium Level 4.2 MMOL/L (3.5-5.1) Chloride Level 107 MMOL/L (98-107) Carbon Dioxide Level 25 MMOL/L (21-32) Anion Gap 6 mmol/L (5-15) Blood Urea Nitrogen 10 mg/dL (7-18) Creatinine 0.9 MG/DL (0.55-1.30) Estimat Glomerular Filtration Rate > 60 mL/min (>60) Glucose Level 100 MG/DL (74-106) Calcium Level 7.3 MG/DL (8.5-10.1) L Plan Problems: (1) Abdominal pain Assessment & Plan: 63-year-old female patient with history of recently diagnosed pancreatic cancer in November 2018 presented to the emergency room at [facility] [place] with complaint of abdominal pain for approximately 1 hour. Patient is status post a biliary drain placement at [facility] approximately 1 week ago. She reported that she had a first treatment of chemotherapy this past Thursday. The patient denied any nausea vomiting, denies any constipation or diarrhea. She states her pain medication was unable to relieve her pain. no fever or chills. labs as below. C Tnoted. surgery called to assist with care and management. tube checked Impression: Diffusely abnormal bowel uptake. Given findings on recent CT scan, this most likely represents enteritis, most likely infectious. Abnormal uptake in the face or upper neck to the left of midline, exact location uncertain. Consider neck CT for better characterization Mildly prominent pulmonary uptake, significance doubted okay for diet tube to drain IV abx d/c planning for SNF f/u with pcp / onc outpatient stable otherwise from surgical standpoint no acute surgical intervention planned Probably has extensive tumor burden given interventions and findings noted. No surgical recommendation at this time. Possible that fluid collection in case in the abdomen infected but to operate on this would be ill advised at this time and patient's current condition. Continue with antibiotics iv fluids trend labs will monitor and follow with exam thank you (2) Biliary drain displacement Assessment & Plan: Daughter was able to inform me with a lot of history. Seems patient unresectable initially and attempted biliary drain placed endoscopically but unsuccessful. A external biliary drain was placed by radiology. Would patient was getting her Port-A-Cath placed a another radiologist felt he could place a internal/external biliary drain and he was able to successfully place a internal/external biliary drain. Had the trade Since. Fell off and she has been without it to drainage recently. In evaluating the trade she has some bilious output from the drain and on imaging drain looks to be appropriately placed. Labs reviewed stable. drain placed to gravity as leaking Drain putting out a ton since placed on 2 bag IMPRESSION: 1. Appropriately positioned percutaneous left biliary drain with mild intrahepatic biliary ductal dilatation. 2. Ill-defined pancreatic head/proximal body mass, likely corresponding to stated history of pancreatic neoplasm. Please note evaluation of size and vascular involvement of pancreatic masses is incomplete prior examinations and without multiphasic pancreatic protocol. 3. 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 SMV confluence is not visualized. 4. Color wall thickening with pericholecystic fluid; in the absence of distended gallbladder, these findings are critical for acute pancreatitis and clinical correlation is recommended. Transhepatic biliary drain noted. 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 Abnormal liver with area of peripheral hypoechogenicity along the posterior right lobe margin. Suggest further evaluation with contrast CT. Obscured pancreas and aorta due to bowel gas. . Interval development of moderate small bowel dilatation. Transition to relatively decompressed terminal ileum demonstrated indicating this is probably a mechanical bowel obstruction. Pneumatosis suspected within one of the proximal small bowel segments in the upper abdomen. No evidence of perforation. Development of multiloculated ascites with prominent collections contiguous with the caudal end of the right lobe of the liver capsule, Morison's pouch and inferior to the right kidney. Other generalized mild ascites noted as well. Internal/external transhepatic biliary drainage catheter in good position. No imaging evidence for catheter malfunction or biliary obstruction. CT noted. likely internal leakage from internal external drain as it was noted to be backing put few days ago hence placed on drainage bag recommend outpatient f/u with oncology and her GI at primary facility to discuss placement of internal metallic larger drain and remove internal / external drain s/p abd drain placement micro noted labs improved on abx s/p new drain 02/01/ / d/c to SNF. f/u with outpatient onc f/u with outpatient GI for consideration of metallic biliary drain now that she has internal external thank you (3) Pancreatic cancer Assessment & Plan: Pancreatic cancer, non-resectable, based on patient's info. Had a Abdominal pelvis CT reviewed 1. Appropriately positioned percutaneous left biliary drain with mild intrahepatic biliary ductal dilatation. 2. Ill- defined pancreatic head/proximal body mass, likely corresponding to stated history of pancreatic neoplasm. Please note evaluation of size and vascular involvement of pancreatic masses is incomplete prior examinations and without multiphasic pancreatic protocol. 3. 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 She has already started rx Jim Gates Feb 02, 2019 15:49
[2019-02-02 16:00] VITALS: BP 123/74
--- NOTE | 2019-02-02 16:54 | NUR ---
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 96.8 HR 87 RR 17 B/P 114/77 WBC 16.8 IS: CEFTRIAXONE IV FLAGYL IV LOVENOX SUBC PLACEMENT PENDING MED/SURG STATUS
--- NOTE | 2019-02-02 18:30 | NUR ---
NURSE NOTES: Patient resting,left biliary draining ,the right drain continues with scant amount of drainage.Call light within reach.
--- NOTE | 2019-02-02 19:31 | NUR ---
HAND-OFF: Report given to Lia BLOOD.
[2019-02-02 20:00] VITALS: BP 106/62
[2019-02-02] MEDS: cefTRIAXone 1gm/D5W 55ml IVPB SCH ×2 (21:49)
--- NOTE | 2019-02-02 23:55 | NUR ---
NURSE NOTES: Received pt in bed. Pt awake, alert and OX4. Breathing on room air, no signs of acute distress noted. IV intact, patent and asymptomatic. Pigtail and biliary drain both intact and draining. Bed in lowest position with call light in reach. Will continue to monitor the pt.
[2019-02-03] VITALS: BP 107/64
[2019-02-03] MEDS: HYDROmorphone 4mg tab ORAL PRN ×4 (02:19→19:51)
[2019-02-03 04:00] VITALS: BP 99/61
[2019-02-03] MEDS: metroNIDAZOLE 500mg Premix IVPB SCH ×3 (05:01→21:10)
[2019-02-03] MEDS: Enoxaparin 60mg Inj SUBQ SCH ×2 (05:02→17:31)
[2019-02-03 07:19] LABS: BASOPHILS % (AUTO) 0.9 % (0.0-2.0); EOSINOPHILS % (AUTO) 0.9 % (0.0-3.0); HEMATOCRIT 28.4 % (37.0-47.0); HEMOGLOBIN 9.5 G/DL (12.0-16.0); LYMPHOCYTES % (AUTO) 6.8 % (20.0-45.0); MEAN CORPUSCULAR VOLUME 93 FL (80-99); MONOCYTES % (AUTO) 11.5 % (1.0-10.0); NEUTROPHILS % (AUTO) 79.9 % (45.0-75.0); PLATELET COUNT 304 K/UL (150-450); RED BLOOD COUNT 3.05 M/UL (4.20-5.40); RED CELL DISTRIBUTION WIDTH 14.9 % (11.6-14.8); WHITE BLOOD COUNT 16.3 K/UL (4.8-10.8)
--- NOTE | 2019-02-03 07:57 | NUR ---
HAND-OFF: Report given to CAITIE Young.
--- NOTE | 2019-02-03 07:57 | NUR ---
NURSE NOTES: Pt resting in bed, awake, A/o x 4, calm and cooperative. pt complained of abd pain, medicated per order. 2 drains on each side of the abd, in place, dressing CDI. Fentanyl patch on left shoulder. pts on IV Abx. tolerating diet well, no N/V . call light within reach, bed in low position, bed alarm on . fall precaution maintained. will continue to monition.
[2019-02-03 07:59] LABS: ANION GAP 8 mmol/L (5-15); BLOOD UREA NITROGEN 9 mg/dL (7-18); CALCIUM 7.4 MG/DL (8.5-10.1); CARBON DIOXIDE 23 MMOL/L (21-32); CHLORIDE 106 MMOL/L (98-107); CREATININE 0.9 MG/DL (0.55-1.30); POTASSIUM 3.6 MMOL/L (3.5-5.1); SODIUM 137 MMOL/L (136-145)
[2019-02-03 08:00] VITALS: BP 105/65
--- NOTE | 2019-02-03 09:16 | General Progress Note ---
Assessment/Plan Assessment/Plan: (1) Intractable abdominal pain (2) Pancreatic cancer We will continue the Neurontin, Dilaudid and Fentanyl patch D/w Dr. Gonzales and he concurred. Subjective Date patient seen: Feb 03, 2019 Time patient seen: 08:00 - am Allergies: Coded Allergies: No Known Allergies (Unverified , 01/12/19) Subjective REVIEW OF SYSTEMS: Denies rash, fever, chills, sweating, dizziness, drowsiness, blurred vision, sore throat, change in weight. No shortness of breath or chest pain. No bowel or bladder incontinence. She is complaining of abdominal pain. SUBJECTIVE: Patient is in bed sitting up and pain has been tolerated well on the Fentanyl patch and 5 doses of Dilaudid in the last 24hrs. No new complaints at this time. Objective Last 24 Hour Vital Signs Date Time Temp Pulse Resp B/P (MAP) Pulse Ox O2 Delivery O2 Flow Rate FiO2 02/03/19 08:18 98.2 02/03/19 04:00 98.2 82 18 99/61 (74) 97 02/03/19 00:00 98.2 86 18 107/64 (78) 97 02/02/19 21:00 Room Air 02/02/19 20:00 98.2 91 18 106/62 (77) 97 02/02/19 16:00 98.2 86 20 123/74 (90) 97 02/02/19 12:00 98.1 87 16 130/79 (96) 97 02/02/19 09:31 96.8 87 17 114/77 (89) 98 Intake and Output 02/02/19 02/03/19 19:00 07:00 Intake Total 620 ml 420 ml Output Total 650 ml 800 ml Balance -30 ml -380 ml Intake Oral 620 ml 420 ml Other 650 ml 800 ml # Voids 6 3 Laboratory Tests 02/03/19 06:43: White Blood Count 16.3H, Red Blood Count 3.05L, Hemoglobin 9.5L, Hematocrit 28.4L, Mean Corpuscular Volume 93, Mean Corpuscular Hemoglobin 31.3H, Mean Corpuscular Hemoglobin Concent 33.5, Red Cell Distribution Width 14.9H, Platelet Count 304, Mean Platelet Volume 6.3L, Neutrophils (%) (Auto) 79.9H, Lymphocytes (%) (Auto) 6.8L, Monocytes (%) (Auto) 11.5H, Eosinophils (%) (Auto) 0.9, Basophils (%) (Auto) 0.9, Sodium Level 137, Potassium Level 3.6, Chloride Level 106, Carbon Dioxide Level 23, Anion Gap 8, Blood Urea Nitrogen 9, Creatinine 0.9, Estimat Glomerular Filtration Rate > 60, Glucose Level 101, Calcium Level 7.4L Height (Feet): 5 Height (Inches): 3.00 Weight (Pounds): 133 Objective GENERAL: Alert, awake, and oriented. LUNGS: Clear bilaterally. HEART: S1, S2 regular. ABDOMEN: Tenderness to palpation with biliary stent noted. BACK: Range of motion is decreased in flexion, extension. EXTREMITIES: No cyanosis. No clubbing. No edema. NEURO: No changes. Doug Reid Feb 03, 2019 09:16
--- NOTE | 2019-02-03 09:30 | NUR ---
PT NOTE Attempted to see patient for PT treatment. Patient declining to participate with PT at this time, c/o fatigue and dizziness, did not sleep well last night. Hannah BLOOD notified, will re-attempt later as schedule permits.
--- NOTE | 2019-02-03 11:14 | Surgery Progress Note ---
Surgery Progress Note Subjective Additional Comments labs improving doing well comfortable pending d/c drain output decreasing Objective Last 24 Hour Vital Signs Date Time Temp Pulse Resp B/P (MAP) Pulse Ox O2 Delivery O2 Flow Rate FiO2 02/03/19 10:46 98.2 02/03/19 09:00 Room Air 02/03/19 08:18 98.2 02/03/19 08:00 97.0 78 18 105/65 (78) 97 02/03/19 04:00 98.2 82 18 99/61 (74) 97 02/03/19 00:00 98.2 86 18 107/64 (78) 97 02/02/19 21:00 Room Air 02/02/19 20:00 98.2 91 18 106/62 (77) 97 02/02/19 16:00 98.2 86 20 123/74 (90) 97 02/02/19 12:00 98.1 87 16 130/79 (96) 97 I&O Intake and Output 02/02/19 02/03/19 19:00 07:00 Intake Total 620 ml 420 ml Output Total 650 ml 800 ml Balance -30 ml -380 ml Intake Oral 620 ml 420 ml Other 650 ml 800 ml # Voids 6 3 Dressing: other Wound: other Drains: other Cardiovascular: RSR Respiratory: clear Abdomen: soft, flat, non-tender, present bowel sounds Extremities: no edema, no tenderness, no cyanosis Laboratory Tests Test 02/03/19 06:43 White Blood Count 16.3 K/UL (4.8-10.8) H Red Blood Count 3.05 M/UL (4.20-5.40) L Hemoglobin 9.5 G/DL (12.0-16.0) L Hematocrit 28.4 % (37.0-47.0) L Mean Corpuscular Volume 93 FL (80-99) Mean Corpuscular Hemoglobin 31.3 PG (27.0-31.0) H Mean Corpuscular Hemoglobin Concent 33.5 G/DL (32.0-36.0) Red Cell Distribution Width 14.9 % (11.6-14.8) H Platelet Count 304 K/UL (150-450) Mean Platelet Volume 6.3 FL (6.5-10.1) L Neutrophils (%) (Auto) 79.9 % (45.0-75.0) H Lymphocytes (%) (Auto) 6.8 % (20.0-45.0) L Monocytes (%) (Auto) 11.5 % (1.0-10.0) H Eosinophils (%) (Auto) 0.9 % (0.0-3.0) Basophils (%) (Auto) 0.9 % (0.0-2.0) Sodium Level 137 MMOL/L (136-145) Potassium Level 3.6 MMOL/L (3.5-5.1) Chloride Level 106 MMOL/L (98-107) Carbon Dioxide Level 23 MMOL/L (21-32) Anion Gap 8 mmol/L (5-15) Blood Urea Nitrogen 9 mg/dL (7-18) Creatinine 0.9 MG/DL (0.55-1.30) Estimat Glomerular Filtration Rate > 60 mL/min (>60) Glucose Level 101 MG/DL (74-106) Calcium Level 7.4 MG/DL (8.5-10.1) L Plan Problems: (1) Abdominal pain Assessment & Plan: 63-year-old female patient with history of recently diagnosed pancreatic cancer in November 2018 presented to the emergency room at [facility] [place] with complaint of abdominal pain for approximately 1 hour. Patient is status post a biliary drain placement at [facility] approximately 1 week ago. She reported that she had a first treatment of chemotherapy this past Thursday. The patient denied any nausea vomiting, denies any constipation or diarrhea. She states her pain medication was unable to relieve her pain. no fever or chills. labs as below. C Tnoted. surgery called to assist with care and management. tube checked Impression: Diffusely abnormal bowel uptake. Given findings on recent CT scan, this most likely represents enteritis, most likely infectious. Abnormal uptake in the face or upper neck to the left of midline, exact location uncertain. Consider neck CT for better characterization Mildly prominent pulmonary uptake, significance doubted okay for diet tube to drain IV abx d/c planning for SNF f/u with pcp / onc outpatient stable otherwise from surgical standpoint no acute surgical intervention planned Probably has extensive tumor burden given interventions and findings noted. No surgical recommendation at this time. Possible that fluid collection in case in the abdomen infected but to operate on this would be ill advised at this time and patient's current condition. Continue with antibiotics iv fluids trend labs will monitor and follow with exam thank you (2) Biliary drain displacement Assessment & Plan: Daughter was able to inform me with a lot of history. Seems patient unresectable initially and attempted biliary drain placed endoscopically but unsuccessful. A external biliary drain was placed by radiology. Would patient was getting her Port-A-Cath placed a another radiologist felt he could place a internal/external biliary drain and he was able to successfully place a internal/external biliary drain. Had the trade Since. Fell off and she has been without it to drainage recently. In evaluating the trade she has some bilious output from the drain and on imaging drain looks to be appropriately placed. Labs reviewed stable. drain placed to gravity as leaking Drain putting out a ton since placed on 2 bag IMPRESSION: 1. Appropriately positioned percutaneous left biliary drain with mild intrahepatic biliary ductal dilatation. 2. Ill-defined pancreatic head/proximal body mass, likely corresponding to stated history of pancreatic neoplasm. Please note evaluation of size and vascular involvement of pancreatic masses is incomplete prior examinations and without multiphasic pancreatic protocol. 3. 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 SMV confluence is not visualized. 4. Color wall thickening with pericholecystic fluid; in the absence of distended gallbladder, these findings are critical for acute pancreatitis and clinical correlation is recommended. Transhepatic biliary drain noted. 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 Abnormal liver with area of peripheral hypoechogenicity along the posterior right lobe margin. Suggest further evaluation with contrast CT. Obscured pancreas and aorta due to bowel gas. . Interval development of moderate small bowel dilatation. Transition to relatively decompressed terminal ileum demonstrated indicating this is probably a mechanical bowel obstruction. Pneumatosis suspected within one of the proximal small bowel segments in the upper abdomen. No evidence of perforation. Development of multiloculated ascites with prominent collections contiguous with the caudal end of the right lobe of the liver capsule, Morison's pouch and inferior to the right kidney. Other generalized mild ascites noted as well. Internal/external transhepatic biliary drainage catheter in good position. No imaging evidence for catheter malfunction or biliary obstruction. CT noted. likely internal leakage from internal external drain as it was noted to be backing put few days ago hence placed on drainage bag recommend outpatient f/u with oncology and her GI at primary facility to discuss placement of internal metallic larger drain and remove internal / external drain s/p abd drain placement micro noted labs improved on abx s/p new drain 11/12/19 / d/c to SNF. f/u with outpatient onc f/u with outpatient GI for consideration of metallic biliary drain now that she has internal external thank you (3) Pancreatic cancer Assessment & Plan: Pancreatic cancer, non-resectable, based on patient's info. Had a Abdominal pelvis CT reviewed 1. Appropriately positioned percutaneous left biliary drain with mild intrahepatic biliary ductal dilatation. 2. Ill- defined pancreatic head/proximal body mass, likely corresponding to stated history of pancreatic neoplasm. Please note evaluation of size and vascular involvement of pancreatic masses is incomplete prior examinations and without multiphasic pancreatic protocol. 3. 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 She has already started rx Jim Gates Feb 03, 2019 11:14
[2019-02-03 12:00] VITALS: BP 105/81
--- NOTE | 2019-02-03 12:18 | Nephrology Progress Note ---
Assessment/Plan Problem List: (1) Electrolyte abnormality (2) Pancreatic cancer (3) Biliary drain displacement (4) Abdominal pain (5) Malnutrition Assessment HypoKalemia HypoNatremia Abdominal pain. Nausea. Vomiting. UTI. Pancreatic cancer. Biliary drain displacement Malnutrition. 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 Subjective ROS Limited/Unobtainable: No Constitutional: Reports: malaise, other - abd pain Objective Objective Last 24 Hour Vital Signs Date Time Temp Pulse Resp B/P (MAP) Pulse Ox O2 Delivery O2 Flow Rate FiO2 02/03/19 10:46 98.2 02/03/19 09:00 Room Air 02/03/19 08:18 98.2 02/03/19 08:00 97.0 78 18 105/65 (78) 97 02/03/19 04:00 98.2 82 18 99/61 (74) 97 02/03/19 00:00 98.2 86 18 107/64 (78) 97 02/02/19 21:00 Room Air 02/02/19 20:00 98.2 91 18 106/62 (77) 97 02/02/19 16:00 98.2 86 20 123/74 (90) 97 Intake and Output 02/02/19 02/03/19 19:00 07:00 Intake Total 620 ml 420 ml Output Total 650 ml 800 ml Balance -30 ml -380 ml Intake Oral 620 ml 420 ml Other 650 ml 800 ml # Voids 6 3 Laboratory Tests 02/03/19 06:43: White Blood Count 16.3H, Red Blood Count 3.05L, Hemoglobin 9.5L, Hematocrit 28.4L, Mean Corpuscular Volume 93, Mean Corpuscular Hemoglobin 31.3H, Mean Corpuscular Hemoglobin Concent 33.5, Red Cell Distribution Width 14.9H, Platelet Count 304, Mean Platelet Volume 6.3L, Neutrophils (%) (Auto) 79.9H, Lymphocytes (%) (Auto) 6.8L, Monocytes (%) (Auto) 11.5H, Eosinophils (%) (Auto) 0.9, Basophils (%) (Auto) 0.9, Sodium Level 137, Potassium Level 3.6, Chloride Level 106, Carbon Dioxide Level 23, Anion Gap 8, Blood Urea Nitrogen 9, Creatinine 0.9, Estimat Glomerular Filtration Rate > 60, Glucose Level 101, Calcium Level 7.4L Height (Feet): 5 Height (Inches): 3.00 Weight (Pounds): 133 Cardiovascular: normal rate Abdomen: distended Objective no change Kapil Turcios MD Feb 03, 2019 12:18
--- NOTE | 2019-02-03 12:21 | NUR ---
NURSE NOTES: pts SBP 190/96 HR 74, left message to Dr Luke. waiting for call back.
[2019-02-03] MEDS: fentaNYL Destruction MISC SCH (12:29)
--- NOTE | 2019-02-03 13:10 | GI Progress Note ---
Assessment/Plan Problems: (1) Pancreatic cancer ICD Codes: C25.9 - Malignant neoplasm of pancreas, unspecified SNOMED: 456770226 (2) Biliary drain displacement ICD Codes: T85.520A - Displacement of bile duct prosthesis, initial encounter SNOMED: 768567688 (3) Abdominal pain ICD Codes: R10.9 - Unspecified abdominal pain SNOMED: 59724840 Status: stable Status Narrative Discussed with Dr. Rocha. Assessment/Plan Abdominal pelvis CT reviewed 1. Appropriately positioned percutaneous left biliary drain with mild intrahepatic biliary ductal dilatation. 2. Ill-defined pancreatic head/proximal body mass, likely corresponding to stated history of pancreatic neoplasm. Please note evaluation of size and vascular involvement of pancreatic masses is incomplete prior examinations and without multiphasic pancreatic protocol. 3. 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 SMV confluence is not visualized. 4. Color wall thickening with pericholecystic fluid; in the absence of distended gallbladder, these findings are critical for acute pancreatitis and clinical correlation is recommended. Indium scan suggest enteritis with diffuse abnormal bowel uptake. In addition abnormal uptake in the face or upper neck region. Status post ultrasound-guided aspiration of the posterior hepatic subcapsular collection. No plans for GI procedures at this time, dc planning Symptomatic treatment bowel regime, colace + miralax. Relistor q weekly. surgical recommendations pain management recommendations ppi Trend LFTs advance diet PT evaluation We will follow-up The patient was seen and examined at bedside and all new and available data was reviewed in the patients chart. I agree with the above findings, impression and plan. (Patient seen earlier today. Signature stamp does not reflect patient encounter time.). - Indra Rocha MD Subjective Subjective Patient still complains of abdominal pain, improved with medication Objective Last 24 Hour Vital Signs Date Time Temp Pulse Resp B/P (MAP) Pulse Ox O2 Delivery O2 Flow Rate FiO2 02/03/19 12:00 97.8 89 19 105/81 (89) 96 02/03/19 10:46 98.2 02/03/19 09:00 Room Air 02/03/19 08:18 98.2 02/03/19 08:00 97.0 78 18 105/65 (78) 97 02/03/19 04:00 98.2 82 18 99/61 (74) 97 02/03/19 00:00 98.2 86 18 107/64 (78) 97 02/02/19 21:00 Room Air 02/02/19 20:00 98.2 91 18 106/62 (77) 97 02/02/19 16:00 98.2 86 20 123/74 (90) 97 Intake and Output 02/02/19 02/03/19 19:00 07:00 Intake Total 620 ml 420 ml Output Total 650 ml 800 ml Balance -30 ml -380 ml Intake Oral 620 ml 420 ml Other 650 ml 800 ml # Voids 6 3 Laboratory Tests Test 02/03/19 06:43 White Blood Count 16.3 K/UL (4.8-10.8) H Red Blood Count 3.05 M/UL (4.20-5.40) L Hemoglobin 9.5 G/DL (12.0-16.0) L Hematocrit 28.4 % (37.0-47.0) L Mean Corpuscular Volume 93 FL (80-99) Mean Corpuscular Hemoglobin 31.3 PG (27.0-31.0) H Mean Corpuscular Hemoglobin Concent 33.5 G/DL (32.0-36.0) Red Cell Distribution Width 14.9 % (11.6-14.8) H Platelet Count 304 K/UL (150-450) Mean Platelet Volume 6.3 FL (6.5-10.1) L Neutrophils (%) (Auto) 79.9 % (45.0-75.0) H Lymphocytes (%) (Auto) 6.8 % (20.0-45.0) L Monocytes (%) (Auto) 11.5 % (1.0-10.0) H Eosinophils (%) (Auto) 0.9 % (0.0-3.0) Basophils (%) (Auto) 0.9 % (0.0-2.0) Sodium Level 137 MMOL/L (136-145) Potassium Level 3.6 MMOL/L (3.5-5.1) Chloride Level 106 MMOL/L (98-107) Carbon Dioxide Level 23 MMOL/L (21-32) Anion Gap 8 mmol/L (5-15) Blood Urea Nitrogen 9 mg/dL (7-18) Creatinine 0.9 MG/DL (0.55-1.30) Estimat Glomerular Filtration Rate > 60 mL/min (>60) Glucose Level 101 MG/DL (74-106) Calcium Level 7.4 MG/DL (8.5-10.1) L Height (Feet): 5 Height (Inches): 3.00 Weight (Pounds): 133 General Appearance: WD/WN, no apparent distress, alert Cardiovascular: normal rate Respiratory/Chest: normal breath sounds, no respiratory distress Abdominal Exam: normal bowel sounds, non tender, soft Extremities: normal range of motion, non-tender Jeff Rueda NP Feb 03, 2019 13:10
--- NOTE | 2019-02-03 14:01 | General Progress Note ---
Assessment/Plan Problem List: (1) SOB (shortness of breath) ICD Codes: R06.02 - Shortness of breath SNOMED: 679126857 (2) Nausea & vomiting ICD Codes: R11.2 - Nausea with vomiting, unspecified SNOMED: 90585486 (3) Malnutrition ICD Codes: E46 - Unspecified protein-calorie malnutrition SNOMED: 27582172 (4) UTI (urinary tract infection) ICD Codes: N39.0 - Urinary tract infection, site not specified SNOMED: 50275805 (5) Abdominal pain ICD Codes: R10.9 - Unspecified abdominal pain SNOMED: 95278079 (6) Biliary drain displacement ICD Codes: T85.520A - Displacement of bile duct prosthesis, initial encounter SNOMED: 680038453 (7) Pancreatic cancer ICD Codes: C25.9 - Malignant neoplasm of pancreas, unspecified SNOMED: 194072455 Status: stable, progressing Assessment/Plan: pt diet pain control abx cbc bmp am dc plan snf Subjective Constitutional: Reports: weakness Allergies: Coded Allergies: No Known Allergies (Unverified , 01/12/19) All Systems: reviewed and negative except above Subjective calm sleepy Objective Last 24 Hour Vital Signs Date Time Temp Pulse Resp B/P (MAP) Pulse Ox O2 Delivery O2 Flow Rate FiO2 02/03/19 12:00 97.8 89 19 105/81 (89) 96 02/03/19 10:46 98.2 02/03/19 09:00 Room Air 02/03/19 08:18 98.2 02/03/19 08:00 97.0 78 18 105/65 (78) 97 02/03/19 04:00 98.2 82 18 99/61 (74) 97 02/03/19 00:00 98.2 86 18 107/64 (78) 97 02/02/19 21:00 Room Air 02/02/19 20:00 98.2 91 18 106/62 (77) 97 02/02/19 16:00 98.2 86 20 123/74 (90) 97 Intake and Output 02/02/19 02/03/19 19:00 07:00 Intake Total 620 ml 420 ml Output Total 650 ml 800 ml Balance -30 ml -380 ml Intake Oral 620 ml 420 ml Other 650 ml 800 ml # Voids 6 3 Laboratory Tests 11/14/19 06:43: White Blood Count 16.3H, Red Blood Count 3.05L, Hemoglobin 9.5L, Hematocrit 28.4L, Mean Corpuscular Volume 93, Mean Corpuscular Hemoglobin 31.3H, Mean Corpuscular Hemoglobin Concent 33.5, Red Cell Distribution Width 14.9H, Platelet Count 304, Mean Platelet Volume 6.3L, Neutrophils (%) (Auto) 79.9H, Lymphocytes (%) (Auto) 6.8L, Monocytes (%) (Auto) 11.5H, Eosinophils (%) (Auto) 0.9, Basophils (%) (Auto) 0.9, Sodium Level 137, Potassium Level 3.6, Chloride Level 106, Carbon Dioxide Level 23, Anion Gap 8, Blood Urea Nitrogen 9, Creatinine 0.9, Estimat Glomerular Filtration Rate > 60, Glucose Level 101, Calcium Level 7.4L Height (Feet): 5 Height (Inches): 3.00 Weight (Pounds): 133 General Appearance: lethargic EENT: normal ENT inspection Neck: normal alignment Cardiovascular: normal peripheral pulses, normal rate, regular rhythm Respiratory/Chest: chest wall non-tender, lungs clear, normal breath sounds Abdomen: soft, hypoactive bowel sounds Extremities: normal inspection Edema: no edema noted Arm (L), no edema noted Arm (R), no edema noted Leg (L), no edema noted Leg (R), no edema noted Pedal (L), no edema noted Pedal (R), no edema noted Generalized Neurologic: motor weakness Skin: normal pigmentation, warm/dry Elvis Luke DO Feb 03, 2019 14:01
--- NOTE | 2019-02-03 15:41 | NUR ---
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 98.2 HR 78 RR 18 B/P 105/65 WBC 16.3 IS: CEFTRIAXONE IV FLAGYL IV PROTONIX IV MED/SURG STATUS
--- NOTE | 2019-02-03 15:42 | NUR ---
*-* INSURANCE *-* ALL AVAILABLE CLINICALS HAVE BEEN FAXED TO: REF#[id number] - FOR TRACKING PURPOSES THIS IS SHARED RISK NO CM ASSIGNED PH#[phone] FAX#[phone] REVIEWS[facility]CLINICALS [facility]#[id number] CM: TAMMY PH#[phone] EXT [phone] FAX#[phone] REVIEWS/CLINICALS
[2019-02-03 16:00] VITALS: BP 114/71
--- NOTE | 2019-02-03 17:10 | Hematology/Onc Progress Note ---
Assessment/Plan Assessment/Plan Assessment/Plan # Pancreatic cancer, non-resectable, based on patient's info. Had a Abdominal pelvis CT reviewed 1. Appropriately positioned percutaneous left biliary drain with mild intrahepatic biliary ductal dilatation. 2. Ill-defined pancreatic head/proximal body mass, likely corresponding to stated history of pancreatic neoplasm. Please note evaluation of size and vascular involvement of pancreatic masses is incomplete prior examinations and without multiphasic pancreatic protocol. 3. 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 She has already started rx. --> gi recs noted No plans for GI procedures at this time --> surgical recommendations, no interventions at this time --> likely to continue chemo and XRT as needed with Dr. Elias Beranl (has received one chemo session) --> CA 19.9 688, in general with this presentation, poor prognosis --> if doesn't get chemo soon, likely to deteriorate, may be hospice candidate # Portal vein thrombosis with abd pain (MAY BE due to tumor encasement) --> may be contributor for abdominal pain --> appears to be chronic portal vein thrombosis on imaging --> minimize pain meds as much as possible --> started on lovenox, okay to transition to noac once discharged # Thrombocytosis, is secondary to underlying process --> currently improved --> less likely myeloproliferative --> smear has been reviewed --> trend 700-->800-->920-->1040k-->997-->304 --> consider asa if worsens, doesn't need leukapheresis # Anemia of myelosuppressive chemo --> okay to continue on chemo at this time --> epo as stimulating factor if drops --> dw patient risks of dvt/VTE # Leukocytosis is likely due to pna --> agree to trend, improved --> abx as per id --> wbc trend 22-->20-->18k-->34k-->22-->19k-->21k-->20-->16.3 --> ceftriaxone # Transaminitis --> Trend LFTs --> per gi --> advance diet as tolerated # Dvt ppx LOVENOX 1mg/sq bid Appreciate consultation and tesha RN Subjective Allergies: Coded Allergies: No Known Allergies (Unverified , 01/12/19) Subjective 01/13: no events to report, no f/c, no night sweats 01/14: no bleeding, on meds, ivf 01/15: no major changes, dw patient, some minor abd pain 01/18: no major events, drain is to gravity, seen by surg, no bleeidng 01/19: awake, alert, getting dressed this am, labs noted 01/20: no events, no bleeding reported, no major changes, no fc 01/21: appears on ct scan that she has a chronic portal vein thrombosis, reviewed results with rad 01/23: to be transferred to [facility] for sob, and also okay with snf placement 01/24: no major changes, no bleeding reported, no f/c 01/25: no events, no complaints in the am, sleeping, no chills 01/26: no bleeding noted, no f/c, no night sweats 02/03: awake and alert, wbc 16, on ceftriaxone, h/h stable Objective Objective Current Medications Medications (Trade) Dose Ordered Sig/Zuleima Route PRN Reason Start Time Stop Time Status Last Admin Dose Admin Acetaminophen (Tylenol) 650 mg Q8H PRN ORAL Mild Pain/Temp > 100.5 01/12/19 17:30 02/11/19 17:29 02/03/19 10:16 Bisacodyl (Dulcolax) 10 mg BIDPRN PRN RECTAL Constipation 01/16/19 07:45 02/15/19 07:44 01/19/19 18:34 Ceftriaxone Sodium 1 gm/ Dextrose 55 ml @ 110 mls/hr Q24H IVPB 01/30/19 22:00 02/06/19 21:59 02/02/19 21:49 Dextrose (Dextrose 50%) 25 ml Q30M PRN IV Hypoglycemia 01/12/19 13:45 02/11/19 13:44 Dextrose (Dextrose 50%) 50 ml Q30M PRN IV Hypoglycemia 01/12/19 13:45 02/11/19 13:44 Enoxaparin Sodium (Lovenox) 60 mg Q12HR@0600,1800 SUBQ 01/20/19 18:00 02/19/19 17:59 02/03/19 05:02 Fentanyl (Duragesic) 1 patch Q72H TDERMAL 01/25/19 12:00 02/08/19 11:59 02/03/19 12:33 Gabapentin (Neurontin) 300 mg THREE TIMES A DAY ORAL 01/19/19 18:00 02/18/19 17:59 02/03/19 12:33 Hydromorphone HCl (Dilaudid) 4 mg Q4H PRN ORAL Severe Breakthru Pain (>7) 01/31/19 10:54 02/07/19 10:53 02/03/19 15:30 Methylnaltrexone Swoope (Relistor) 12 mg ONCE A WEEK SUBQ 02/01/19 09:00 03/03/19 08:59 Metronidazole 100 ml @ 100 mls/hr Q8HR IVPB 01/30/19 15:30 02/06/19 15:29 02/03/19 14:11 Miscellaneous Medication (fentaNYL Destruction) 1 ea Q72H MISC 01/25/19 11:59 02/24/19 11:58 02/03/19 12:29 Naloxone HCl (Narcan) 0.1 mg Q5M PRN IV Sedation scale 3 or 4 01/24/19 09:00 02/23/19 08:54 Ondansetron HCl (Zofran) 4 mg Q6H PRN IVP Nausea & Vomiting 01/12/19 13:45 02/11/19 13:44 01/26/19 08:08 Pantoprazole (Protonix) 40 mg EVERY 12 HOURS ORAL 01/27/19 21:00 02/26/19 20:59 02/03/19 09:04 Polyethylene Glycol (Miralax) 17 gm BEDTIME PRN ORAL constipation 01/22/19 10:30 02/15/19 20:59 Potassium Chloride (K-Dur) 40 meq TWICE A DAY ORAL 01/27/19 10:00 02/26/19 09:59 02/03/19 09:06 Simethicone (Mylicon) 80 mg BIDPRN PRN ORAL gas 01/18/19 21:45 02/17/19 21:44 01/21/19 14:38 Last 24 Hour Vital Signs Date Time Temp Pulse Resp B/P (MAP) Pulse Ox O2 Delivery O2 Flow Rate FiO2 02/03/19 16:00 98.2 02/03/19 16:00 98.3 82 18 114/71 (85) 98 02/03/19 13:03 98.2 02/03/19 12:00 97.8 89 19 105/81 (89) 96 02/03/19 10:46 98.2 02/03/19 09:00 Room Air 02/03/19 08:00 97.0 78 18 105/65 (78) 97 02/03/19 04:00 98.2 82 18 99/61 (74) 97 02/03/19 00:00 98.2 86 18 107/64 (78) 97 02/02/19 21:00 Room Air 02/02/19 20:00 98.2 91 18 106/62 (77) 97 02/02/19 16:00 98.2 86 20 123/74 (90) 97 02/02/19 12:00 98.1 87 16 130/79 (96) 97 02/02/19 09:31 96.8 87 17 114/77 (89) 98 02/02/19 09:00 Room Air 02/02/19 04:00 97.4 80 19 130/82 (98) 99 02/02/19 00:00 97.9 81 20 122/78 (93) 99 02/01/19 21:00 Room Air Intake and Output 02/02/19 02/03/19 19:00 07:00 Intake Total 620 ml 420 ml Output Total 650 ml 800 ml Balance -30 ml -380 ml Intake Oral 620 ml 420 ml Other 650 ml 800 ml # Voids 6 3 Labs Test 02/01/19 07:10 02/01/19 11:10 02/02/19 05:35 02/03/19 06:43 Sodium Level 135 MMOL/L (136-145) 138 MMOL/L (136-145) 137 MMOL/L (136-145) Potassium Level 4.0 MMOL/L (3.5-5.1) 4.2 MMOL/L (3.5-5.1) 3.6 MMOL/L (3.5-5.1) Chloride Level 107 MMOL/L (98-107) 107 MMOL/L (98-107) 106 MMOL/L (98-107) Carbon Dioxide Level 25 MMOL/L (21-32) 25 MMOL/L (21-32) 23 MMOL/L (21-32) Anion Gap 3 mmol/L (5-15) 6 mmol/L (5-15) 8 mmol/L (5-15) Blood Urea Nitrogen 9 mg/dL (7-18) 10 mg/dL (7-18) 9 mg/dL (7-18) Creatinine 0.9 MG/DL (0.55-1.30) 0.9 MG/DL (0.55-1.30) 0.9 MG/DL (0.55-1.30) Estimat Glomerular Filtration Rate > 60 mL/min (>60) > 60 mL/min (>60) > 60 mL/min (>60) Glucose Level 91 MG/DL (74-106) 100 MG/DL (74-106) 101 MG/DL (74-106) Calcium Level 7.3 MG/DL (8.5-10.1) 7.3 MG/DL (8.5-10.1) 7.4 MG/DL (8.5-10.1) Prothrombin Time 15.0 SEC (9.30-11.50) Prothromb Time International Ratio 1.4 (0.9-1.1) Activated Partial Thromboplast Time 36 SEC (23-33) White Blood Count 16.8 K/UL (4.8-10.8) 16.3 K/UL (4.8-10.8) Red Blood Count 3.15 M/UL (4.20-5.40) 3.05 M/UL (4.20-5.40) Hemoglobin 9.9 G/DL (12.0-16.0) 9.5 G/DL (12.0-16.0) Hematocrit 29.5 % (37.0-47.0) 28.4 % (37.0-47.0) Mean Corpuscular Volume 94 FL (80-99) 93 FL (80-99) Mean Corpuscular Hemoglobin 31.3 PG (27.0-31.0) 31.3 PG (27.0-31.0) Mean Corpuscular Hemoglobin Concent 33.4 G/DL (32.0-36.0) 33.5 G/DL (32.0-36.0) Red Cell Distribution Width 14.5 % (11.6-14.8) 14.9 % (11.6-14.8) Platelet Count 320 K/UL (150-450) 304 K/UL (150-450) Mean Platelet Volume 6.4 FL (6.5-10.1) 6.3 FL (6.5-10.1) Neutrophils (%) (Auto) 79.7 % (45.0-75.0) 79.9 % (45.0-75.0) Lymphocytes (%) (Auto) 6.7 % (20.0-45.0) 6.8 % (20.0-45.0) Monocytes (%) (Auto) 11.9 % (1.0-10.0) 11.5 % (1.0-10.0) Eosinophils (%) (Auto) 0.8 % (0.0-3.0) 0.9 % (0.0-3.0) Basophils (%) (Auto) 1.0 % (0.0-2.0) 0.9 % (0.0-2.0) Height (Feet): 5 Height (Inches): 3.00 Weight (Pounds): 133 Roberto Davidson MD Feb 03, 2019 17:10
--- NOTE | 2019-02-03 18:18 | NUR ---
TERMINATION CLERK NOTES SPOKE WITH ACE FROM [facility], MADE AWARE OF DENIAL RECEIVED WITH LAST COVERED DAY OF 01/25/19. PER ACE THIS IS NOT A DENIAL THE PT WAS PLACED ON ADMINISTRATION DAYS UNTIL PLACEMENT IS FOUND. PER ACE [facility] IS CURRENTLY REVIEWING INQUIRY. ACE [phone] EXT [id number]
--- NOTE | 2019-02-03 18:22 | Infectious Diseases Prog Note ---
Assessment/Plan Assessment/Plan Fever 01/13, SP Leukocytosis, fluctuating 01/14 bcx ng tumor related? Ileus related? biloma related? atelectasis? 01/24 Indium scan: Diffusely abnormal bowel uptake. Given findings on recent CT scan, this most likely represents enteritis, most likely infectious. Abnormal uptake in the face or upper neck to the left of midline, exact location uncertain. Consider neck CT for better characterization. Mildly prominent pulmonary uptake, significance doubted. On further review the images, activity in the right midabdomen is greater than would be accounted for acute spine hepatic activity, and there is significant activity inferior to the right lobe of the liver in the anterior abdomen. This correlates with a large loculated fluid collection demonstrated on recent CT scan of 01/20/2019, and may indicate infection of this collection. The smaller subcapsular collection in the posterior right hepatic lobe is difficult to differentiate from normal liver activity on this exam, so it is not possible to assess for the presence or absence of abnormal activity in this. 01/27 US: Aspiration of posterior hepatic subcapsular collection, yielding serous fluid which does not appear grossly infected. No drainage catheter placed , therefore, but a specimen was sent to the lab for analysis. Placement of 8.5 [place]erratian pigtail drainage catheter in anterior right lower quadrant intraperitoneal collection. This yielded borderline purulent appearing body brown fluid. Specimen sent to lab for analysis. 01/27 fluid: 76K WBC(92% PMN). cx: 3+ E coli 02/01: Successful ultrasound-guided placement of a percutaneous drain within a fluid collection that was previously infected and previously addressed by a percutaneous drain which had accidentally fallen out yesterday. PNA, CAP? -CXR: Patchy consolidation in the right lower lung, concerning for pneumonia. Mild pulmonary vascular congestion. -flu swab negative urine legionella antigen negative Abdominal pain Pancreatitis? lipase negative 01/12 CT abd/p: Appropriately positioned percutaneous left biliary drain with mild intrahepatic biliary ductal dilatation. Ill-defined pancreatic head/ proximal body mass, likely corresponding to stated history of pancreatic neoplasm. Please note evaluation of size and vascular involvement of pancreatic masses is incomplete prior examinations and without multiphasic pancreatic protocol. 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 SMV confluence is not visualized. Gallbladder wall thickening with pericholecystic fluid; in the absence of distended gallbladder, these findings are critical for acute pancreatitis and clinical correlation is recommended. 01/19 US Abd: Transhepatic biliary drain noted. 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 Abnormal liver with area of peripheral hypoechogenicity along the posterior right lobe margin. Suggest further evaluation with contrast CT. Obscured pancreas and aorta due to bowel gas. Trace ascites 01/20 CT A/P: Interval development of moderate small bowel dilatation. Transition to relatively decompressed terminal ileum demonstrated indicating this is probably a mechanical bowel obstruction. Pneumatosis suspected within one of the proximal small bowel segments in the upper abdomen. No evidence of perforation. Development of multiloculated ascites with prominent collections contiguous with the caudal end of the right lobe of the liver capsule, Morison's pouch and inferior to the right kidney. Other generalized mild ascites noted as well. Internal/external transhepatic biliary drainage catheter in good position. No imaging evidence for catheter malfunction or biliary obstruction. Right basilar consolidation versus atelectasis. Correlate for pneumonia. Trace bilateral pleural effusions. Anasarca recently diagnosed pancreatic CA 11/2018 - s/p biliary drain 1 week [employer] [employer] at [facility] - 1st chemotherapy treatment 01/10/19 tobacco abuse Plan: Ceftriaxone, flagyl #5...f/u repeat drainage cx. if negative, fluid collection likely now sterile(seroma, biloma, hematoma) and will consider very short duration of antibiotics. ok to DC to lower level of care. Still pending facility. 01/30 SP Meropenem #6 01/25 SP Ceftriaxone #3, flagyl #1, vancomycin #11 01/22 SP Azithromycin #7 01/23 SP Zosyn #8 01/17 DC Tamiflu #2 -f/u cx -Monitor CBC/CMP, temperatures -f/u Bcx x2 -aspiration precautions Thank you for this consultation. Will continue to follow along with you. Subjective Allergies: Coded Allergies: No Known Allergies (Unverified , 01/12/19) Subjective Afebrile. WBC better. Pt reports frequent bowel movements. Nurse witnessed them and they are soft, not diarrhea. Objective Vital Signs Last 24 Hour Vital Signs Date Time Temp Pulse Resp B/P (MAP) Pulse Ox O2 Delivery O2 Flow Rate FiO2 02/03/19 16:00 98.2 02/03/19 16:00 98.3 82 18 114/71 (85) 98 02/03/19 13:03 98.2 02/03/19 12:00 97.8 89 19 105/81 (89) 96 02/03/19 10:46 98.2 02/03/19 09:00 Room Air 02/03/19 08:00 97.0 78 18 105/65 (78) 97 02/03/19 04:00 98.2 82 18 99/61 (74) 97 02/03/19 00:00 98.2 86 18 107/64 (78) 97 02/02/19 21:00 Room Air 02/02/19 20:00 98.2 91 18 106/62 (77) 97 Height (Feet): 5 Height (Inches): 3.00 Weight (Pounds): 133 Objective Gen: NAD CV: RRR Resp: RRR Abd: hypoactive BS+. Diffusely TTP but worse RUQ. Ext: no edema Neuro: alert. Microbiology Date/Time Source Procedure Growth Status 02/01/19 14:00 Abdominal Abscess Anaerobic Culture - Preliminary NO GROWTH Resulted Laboratory Tests Test 02/03/19 06:43 White Blood Count 16.3 K/UL (4.8-10.8) H Red Blood Count 3.05 M/UL (4.20-5.40) L Hemoglobin 9.5 G/DL (12.0-16.0) L Hematocrit 28.4 % (37.0-47.0) L Mean Corpuscular Volume 93 FL (80-99) Mean Corpuscular Hemoglobin 31.3 PG (27.0-31.0) H Mean Corpuscular Hemoglobin Concent 33.5 G/DL (32.0-36.0) Red Cell Distribution Width 14.9 % (11.6-14.8) H Platelet Count 304 K/UL (150-450) Mean Platelet Volume 6.3 FL (6.5-10.1) L Neutrophils (%) (Auto) 79.9 % (45.0-75.0) H Lymphocytes (%) (Auto) 6.8 % (20.0-45.0) L Monocytes (%) (Auto) 11.5 % (1.0-10.0) H Eosinophils (%) (Auto) 0.9 % (0.0-3.0) Basophils (%) (Auto) 0.9 % (0.0-2.0) Sodium Level 137 MMOL/L (136-145) Potassium Level 3.6 MMOL/L (3.5-5.1) Chloride Level 106 MMOL/L (98-107) Carbon Dioxide Level 23 MMOL/L (21-32) Anion Gap 8 mmol/L (5-15) Blood Urea Nitrogen 9 mg/dL (7-18) Creatinine 0.9 MG/DL (0.55-1.30) Estimat Glomerular Filtration Rate > 60 mL/min (>60) Glucose Level 101 MG/DL (74-106) Calcium Level 7.4 MG/DL (8.5-10.1) L Current Medications Medications (Trade) Dose Ordered Sig/Zuleima Route PRN Reason Start Time Stop Time Status Last Admin Dose Admin Acetaminophen (Tylenol) 650 mg Q8H PRN ORAL Mild Pain/Temp > 100.5 01/12/19 17:30 02/11/19 17:29 02/03/19 10:16 Bisacodyl (Dulcolax) 10 mg BIDPRN PRN RECTAL Constipation 01/16/19 07:45 02/15/19 07:44 01/19/19 18:34 Ceftriaxone Sodium 1 gm/ Dextrose 55 ml @ 110 mls/hr Q24H IVPB 01/30/19 22:00 02/06/19 21:59 02/02/19 21:49 Dextrose (Dextrose 50%) 25 ml Q30M PRN IV Hypoglycemia 01/12/19 13:45 02/11/19 13:44 Dextrose (Dextrose 50%) 50 ml Q30M PRN IV Hypoglycemia 01/12/19 13:45 02/11/19 13:44 Enoxaparin Sodium (Lovenox) 60 mg Q12HR@0600,1800 SUBQ 01/20/19 18:00 02/19/19 17:59 02/03/19 17:31 Fentanyl (Duragesic) 1 patch Q72H TDERMAL 01/25/19 12:00 02/08/19 11:59 02/03/19 12:33 Gabapentin (Neurontin) 300 mg THREE TIMES A DAY ORAL 01/19/19 18:00 02/18/19 17:59 02/03/19 17:28 Hydromorphone HCl (Dilaudid) 4 mg Q4H PRN ORAL Severe Breakthru Pain (>7) 01/31/19 10:54 11/18/19 10:53 02/03/19 15:30 Methylnaltrexone [place] (Relistor) 12 mg ONCE A WEEK SUBQ 02/01/19 09:00 03/03/19 08:59 Metronidazole 100 ml @ 100 mls/hr Q8HR IVPB 01/30/19 15:30 02/06/19 15:29 02/03/19 14:11 Miscellaneous Medication (fentaNYL Destruction) 1 ea Q72H MISC 01/25/19 11:59 02/24/19 11:58 02/03/19 12:29 Naloxone HCl (Narcan) 0.1 mg Q5M PRN IV Sedation scale 3 or 4 01/24/19 09:00 02/23/19 08:54 Ondansetron HCl (Zofran) 4 mg Q6H PRN IVP Nausea & Vomiting 01/12/19 13:45 02/11/19 13:44 01/26/19 08:08 Pantoprazole (Protonix) 40 mg EVERY 12 HOURS ORAL 01/27/19 21:00 02/26/19 20:59 02/03/19 09:04 Polyethylene Glycol (Miralax) 17 gm BEDTIME PRN ORAL constipation 01/22/19 10:30 02/15/19 20:59 Potassium Chloride (K-Dur) 40 meq TWICE A DAY ORAL 01/27/19 10:00 02/26/19 09:59 02/03/19 17:27 Simethicone (Mylicon) 80 mg BIDPRN PRN ORAL gas 01/18/19 21:45 02/17/19 21:44 01/21/19 14:38 Catalina Kirby MD Feb 03, 2019 18:22
[2019-02-03 20:00] VITALS: BP 108/69
[2019-02-03] MEDS: cefTRIAXone 1gm/D5W 55ml IVPB SCH ×2 (21:10)
[2019-02-04] VITALS: BP 118/74
[2019-02-04] MEDS: HYDROmorphone 4mg tab ORAL PRN ×6 (00:18→20:44)
[2019-02-04 04:00] VITALS: BP 114/71
[2019-02-04] MEDS: Enoxaparin 60mg Inj SUBQ SCH ×2 (06:05→17:05)
[2019-02-04] MEDS: metroNIDAZOLE 500mg Premix IVPB SCH ×3 (06:06→22:50)
[2019-02-04 06:54] LABS: HEMATOCRIT 29.6 % (37.0-47.0); HEMOGLOBIN 9.9 G/DL (12.0-16.0); MEAN CORPUSCULAR VOLUME 95 FL (80-99); PLATELET COUNT 354 K/UL (150-450); RED BLOOD COUNT 3.12 M/UL (4.20-5.40); RED CELL DISTRIBUTION WIDTH 14.9 % (11.6-14.8); WHITE BLOOD COUNT 19.9 K/UL (4.8-10.8)
--- NOTE | 2019-02-04 06:59 | NUR ---
NURSE NOTES: IV pulled out @ 0545. Tried two times to insert new iv, not able to get iv acscess. Will endorsed to the day shift.
--- NOTE | 2019-02-04 07:10 | NUR ---
HAND-OFF: Report given to Elpidio Baker RN.
[2019-02-04 07:12] LABS: ANION GAP 7 mmol/L (5-15); BLOOD UREA NITROGEN 8 mg/dL (7-18); CALCIUM 7.5 MG/DL (8.5-10.1); CARBON DIOXIDE 26 MMOL/L (21-32); CHLORIDE 106 MMOL/L (98-107); CREATININE 0.9 MG/DL (0.55-1.30); POTASSIUM 4.2 MMOL/L (3.5-5.1); SODIUM 139 MMOL/L (136-145)
--- NOTE | 2019-02-04 07:15 | NUR ---
NURSE NOTES: Received report from CAITIE Brown. Pt is awake, alert, and oriented, sitting up in chair, able to make needs known. On RA, no IV access, charge nurse made aware. Will ask another nurse from different unit for IV access. No apparent distress noted. Bed locked in lowest position with side rails up, call light within reach. Will continue to monitor.
--- NOTE | 2019-02-04 07:52 | NUR ---
NURSE NOTES: Unable to administer 0600am ATB metronidazole, due to no iv access.
[2019-02-04 08:00] VITALS: BP 115/69
--- NOTE | 2019-02-04 08:50 | General Progress Note ---
Assessment/Plan Assessment/Plan: (1) Intractable abdominal pain (2) Pancreatic cancer We will continue the Neurontin, Dilaudid and Fentanyl patch An RX for Fentanyl patch and Dilaudid was written for SNF in anticipation for discharge D/w Dr. Gonzales and he concurred. Subjective Date patient seen: Feb 04, 2019 Time patient seen: 08:00 - am Allergies: Coded Allergies: No Known Allergies (Unverified , 01/12/19) Subjective REVIEW OF SYSTEMS: Denies rash, fever, chills, sweating, dizziness, drowsiness, blurred vision, sore throat, change in weight. No shortness of breath or chest pain. No bowel or bladder incontinence. She is complaining of abdominal pain. SUBJECTIVE: Patient is comfortable and shows no signs of pain or distress. Her pain has been stable on the Fentanyl patch and Dilaudid and is looking forward to being transferred to SNF. Objective Last 24 Hour Vital Signs Date Time Temp Pulse Resp B/P (MAP) Pulse Ox O2 Delivery O2 Flow Rate FiO2 02/04/19 04:00 97.3 82 18 114/71 (85) 98 02/04/19 00:00 98.0 78 16 118/74 (89) 99 02/03/19 21:00 Room Air 02/03/19 20:00 97.9 80 17 108/69 (82) 97 02/03/19 16:00 98.2 02/03/19 16:00 98.3 82 18 114/71 (85) 98 02/03/19 13:03 98.2 02/03/19 12:00 97.8 89 19 105/81 (89) 96 02/03/19 10:46 98.2 02/03/19 09:00 Room Air Intake and Output 02/03/19 02/04/19 18:59 06:59 Intake Total 360 ml Output Total 550 ml 250 ml Balance -190 ml -250 ml Intake Oral 360 ml Other 550 ml 250 ml # Voids 8 4 # Bowel Movements 6 Laboratory Tests 02/04/19 05:45: White Blood Count 19.9H, Red Blood Count 3.12L, Hemoglobin 9.9L, Hematocrit 29.6L, Mean Corpuscular Volume 95, Mean Corpuscular Hemoglobin 31.6H, Mean Corpuscular Hemoglobin Concent 33.3, Red Cell Distribution Width 14.9H, Platelet Count 354, Mean Platelet Volume 6.4L, Neutrophils (%) (Auto) , Lymphocytes (%) (Auto) , Monocytes (%) (Auto) , Eosinophils (%) (Auto) , Basophils (%) (Auto) , Differential Total Cells Counted 100, Neutrophils % ( Manual) 89H, Lymphocytes % (Manual) 7L, Monocytes % (Manual) 2, Eosinophils % ( Manual) 0, Basophils % (Manual) 2, Band Neutrophils 0, Platelet Estimate Adequate, Platelet Morphology Normal, Sodium Level 139, Potassium Level 4.2, Chloride Level 106, Carbon Dioxide Level 26, Anion Gap 7, Blood Urea Nitrogen 8 , Creatinine 0.9, Estimat Glomerular Filtration Rate > 60, Glucose Level 119H, Calcium Level 7.5L Height (Feet): 5 Height (Inches): 3.00 Weight (Pounds): 133 Objective GENERAL: Alert, awake, and oriented. LUNGS: Clear bilaterally. HEART: S1, S2 regular. ABDOMEN: Tenderness to palpation with biliary stent noted. BACK: Range of motion is decreased in flexion, extension. EXTREMITIES: No cyanosis. No clubbing. No edema. NEURO: No changes. Doug Reid Feb 04, 2019 08:50
--- NOTE | 2019-02-04 09:13 | General Progress Note ---
Assessment/Plan Problem List: (1) SOB (shortness of breath) ICD Codes: R06.02 - Shortness of breath SNOMED: 475350373 (2) Nausea & vomiting ICD Codes: R11.2 - Nausea with vomiting, unspecified SNOMED: 50175385 (3) Malnutrition ICD Codes: E46 - Unspecified protein-calorie malnutrition SNOMED: 14524331 (4) UTI (urinary tract infection) ICD Codes: N39.0 - Urinary tract infection, site not specified SNOMED: 84286648 (5) Abdominal pain ICD Codes: R10.9 - Unspecified abdominal pain SNOMED: 05601302 (6) Biliary drain displacement ICD Codes: T85.520A - Displacement of bile duct prosthesis, initial encounter SNOMED: 281489956 (7) Pancreatic cancer ICD Codes: C25.9 - Malignant neoplasm of pancreas, unspecified SNOMED: 335572256 Status: unchanged Assessment/Plan: pt diet pain control abx cbc bmp am dc plan snf Subjective Constitutional: Reports: weakness Allergies: Coded Allergies: No Known Allergies (Unverified , 01/12/19) All Systems: reviewed and negative except above Subjective calm sleepy Objective Last 24 Hour Vital Signs Date Time Temp Pulse Resp B/P (MAP) Pulse Ox O2 Delivery O2 Flow Rate FiO2 02/04/19 04:00 97.3 82 18 114/71 (85) 98 02/04/19 00:00 98.0 78 16 118/74 (89) 99 02/03/19 21:00 Room Air 02/03/19 20:00 97.9 80 17 108/69 (82) 97 02/03/19 16:00 98.2 02/03/19 16:00 98.3 82 18 114/71 (85) 98 02/03/19 13:03 98.2 02/03/19 12:00 97.8 89 19 105/81 (89) 96 02/03/19 10:46 98.2 Intake and Output 02/03/19 02/04/19 18:59 06:59 Intake Total 360 ml Output Total 550 ml 250 ml Balance -190 ml -250 ml Intake Oral 360 ml Other 550 ml 250 ml # Voids 8 4 # Bowel Movements 6 Laboratory Tests 02/04/19 05:45: White Blood Count 19.9H, Red Blood Count 3.12L, Hemoglobin 9.9L, Hematocrit 29.6L, Mean Corpuscular Volume 95, Mean Corpuscular Hemoglobin 31.6H, Mean Corpuscular Hemoglobin Concent 33.3, Red Cell Distribution Width 14.9H, Platelet Count 354, Mean Platelet Volume 6.4L, Neutrophils (%) (Auto) , Lymphocytes (%) (Auto) , Monocytes (%) (Auto) , Eosinophils (%) (Auto) , Basophils (%) (Auto) , Differential Total Cells Counted 100, Neutrophils % ( Manual) 89H, Lymphocytes % (Manual) 7L, Monocytes % (Manual) 2, Eosinophils % ( Manual) 0, Basophils % (Manual) 2, Band Neutrophils 0, Platelet Estimate Adequate, Platelet Morphology Normal, Sodium Level 139, Potassium Level 4.2, Chloride Level 106, Carbon Dioxide Level 26, Anion Gap 7, Blood Urea Nitrogen 8 , Creatinine 0.9, Estimat Glomerular Filtration Rate > 60, Glucose Level 119H, Calcium Level 7.5L Height (Feet): 5 Height (Inches): 3.00 Weight (Pounds): 133 General Appearance: lethargic EENT: normal ENT inspection Neck: normal alignment Cardiovascular: normal peripheral pulses, normal rate, regular rhythm Respiratory/Chest: chest wall non-tender, lungs clear, normal breath sounds Abdomen: normal bowel sounds, non tender, soft Extremities: normal inspection Edema: no edema noted Arm (L), no edema noted Arm (R), no edema noted Leg (L), no edema noted Leg (R), no edema noted Pedal (L), no edema noted Pedal (R), no edema noted Generalized Neurologic: motor weakness Skin: normal pigmentation, warm/dry Elvis Luke DO Feb 04, 2019 09:13
--- NOTE | 2019-02-04 10:23 | Nephrology Progress Note ---
Assessment/Plan Problem List: (1) Electrolyte abnormality (2) Pancreatic cancer (3) Biliary drain displacement (4) Abdominal pain (5) Malnutrition Assessment HypoKalemia HypoNatremia Abdominal pain. Nausea. Vomiting. UTI. Pancreatic cancer. Biliary drain displacement Malnutrition. 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 Subjective ROS Limited/Unobtainable: No Constitutional: Reports: malaise, weakness Objective Objective Last 24 Hour Vital Signs Date Time Temp Pulse Resp B/P (MAP) Pulse Ox O2 Delivery O2 Flow Rate FiO2 02/04/19 08:00 97.0 83 18 115/69 (84) 95 02/04/19 04:00 97.3 82 18 114/71 (85) 98 02/04/19 00:00 98.0 78 16 118/74 (89) 99 02/03/19 21:00 Room Air 02/03/19 20:00 97.9 80 17 108/69 (82) 97 02/03/19 16:00 98.2 02/03/19 16:00 98.3 82 18 114/71 (85) 98 02/03/19 13:03 98.2 02/03/19 12:00 97.8 89 19 105/81 (89) 96 02/03/19 10:46 98.2 Intake and Output 02/03/19 02/04/19 18:59 06:59 Intake Total 360 ml Output Total 550 ml 250 ml Balance -190 ml -250 ml Intake Oral 360 ml Other 550 ml 250 ml # Voids 8 4 # Bowel Movements 6 Laboratory Tests 02/04/19 05:45: White Blood Count 19.9H, Red Blood Count 3.12L, Hemoglobin 9.9L, Hematocrit 29.6L, Mean Corpuscular Volume 95, Mean Corpuscular Hemoglobin 31.6H, Mean Corpuscular Hemoglobin Concent 33.3, Red Cell Distribution Width 14.9H, Platelet Count 354, Mean Platelet Volume 6.4L, Neutrophils (%) (Auto) , Lymphocytes (%) (Auto) , Monocytes (%) (Auto) , Eosinophils (%) (Auto) , Basophils (%) (Auto) , Differential Total Cells Counted 100, Neutrophils % ( Manual) 89H, Lymphocytes % (Manual) 7L, Monocytes % (Manual) 2, Eosinophils % ( Manual) 0, Basophils % (Manual) 2, Band Neutrophils 0, Platelet Estimate Adequate, Platelet Morphology Normal, Sodium Level 139, Potassium Level 4.2, Chloride Level 106, Carbon Dioxide Level 26, Anion Gap 7, Blood Urea Nitrogen 8 , Creatinine 0.9, Estimat Glomerular Filtration Rate > 60, Glucose Level 119H, Calcium Level 7.5L Height (Feet): 5 Height (Inches): 3.00 Weight (Pounds): 133 General Appearance: no apparent distress Objective no change Kapil Turcios MD Feb 04, 2019 10:23
--- NOTE | 2019-02-04 11:18 | NUR ---
NURSE NOTES: RN made Dr. Kirby aware of pt's WBC trending up from 16.5 to 19.9. No new orders received.
--- NOTE | 2019-02-04 11:44 | Infectious Diseases Prog Note ---
Assessment/Plan Assessment/Plan Fever 01/13, SP Leukocytosis, fluctuating 01/14 bcx ng tumor related? Ileus related? biloma related? atelectasis? 01/24 Indium scan: Diffusely abnormal bowel uptake. Given findings on recent CT scan, this most likely represents enteritis, most likely infectious. Abnormal uptake in the face or upper neck to the left of midline, exact location uncertain. Consider neck CT for better characterization. Mildly prominent pulmonary uptake, significance doubted. On further review the images, activity in the right midabdomen is greater than would be accounted for acute spine hepatic activity, and there is significant activity inferior to the right lobe of the liver in the anterior abdomen. This correlates with a large loculated fluid collection demonstrated on recent CT scan of 01/20/2019, and may indicate infection of this collection. The smaller subcapsular collection in the posterior right hepatic lobe is difficult to differentiate from normal liver activity on this exam, so it is not possible to assess for the presence or absence of abnormal activity in this. 01/27 US: Aspiration of posterior hepatic subcapsular collection, yielding serous fluid which does not appear grossly infected. No drainage catheter placed , therefore, but a specimen was sent to the lab for analysis. Placement of 8.5 [place] pigtail drainage catheter in anterior right lower quadrant intraperitoneal collection. This yielded borderline purulent appearing body brown fluid. Specimen sent to lab for analysis. 01/27 fluid: 76K WBC(92% PMN). cx: 3+ E coli 02/01: Successful ultrasound-guided placement of a percutaneous drain within a fluid collection that was previously infected and previously addressed by a percutaneous drain which had accidentally fallen out yesterday. PNA, CAP? -CXR: Patchy consolidation in the right lower lung, concerning for pneumonia. Mild pulmonary vascular congestion. -flu swab negative urine legionella antigen negative Abdominal pain Pancreatitis? lipase negative 01/12 CT abd/p: Appropriately positioned percutaneous left biliary drain with mild intrahepatic biliary ductal dilatation. Ill-defined pancreatic head/ proximal body mass, likely corresponding to stated history of pancreatic neoplasm. Please note evaluation of size and vascular involvement of pancreatic masses is incomplete prior examinations and without multiphasic pancreatic protocol. 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 SMV confluence is not visualized. Gallbladder wall thickening with pericholecystic fluid; in the absence of distended gallbladder, these findings are critical for acute pancreatitis and clinical correlation is recommended. 01/19 US Abd: Transhepatic biliary drain noted. 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 Abnormal liver with area of peripheral hypoechogenicity along the posterior right lobe margin. Suggest further evaluation with contrast CT. Obscured pancreas and aorta due to bowel gas. Trace ascites 01/20 CT A/P: Interval development of moderate small bowel dilatation. Transition to relatively decompressed terminal ileum demonstrated indicating this is probably a mechanical bowel obstruction. Pneumatosis suspected within one of the proximal small bowel segments in the upper abdomen. No evidence of perforation. Development of multiloculated ascites with prominent collections contiguous with the caudal end of the right lobe of the liver capsule, Morison's pouch and inferior to the right kidney. Other generalized mild ascites noted as well. Internal/external transhepatic biliary drainage catheter in good position. No imaging evidence for catheter malfunction or biliary obstruction. Right basilar consolidation versus atelectasis. Correlate for pneumonia. Trace bilateral pleural effusions. Anasarca recently diagnosed pancreatic CA 11/2018 - s/p biliary drain 1 week [employer] at [facility] - 1st chemotherapy treatment 01/10/19 tobacco abuse Plan: Ceftriaxone, flagyl #6...f/u repeat drainage cx. if negative, fluid collection likely now sterile(seroma, biloma, hematoma) and will consider very short duration of antibiotics. ok to DC to lower level of care. Still pending facility. 01/30 SP Meropenem #6 01/25 SP Ceftriaxone #3, flagyl #1, vancomycin #11 01/22 SP Azithromycin #7 01/23 SP Zosyn #8 01/17 DC Tamiflu #2 -f/u cx -Monitor CBC/CMP, temperatures -f/u Bcx x2 -aspiration precautions Thank you for this consultation. Will continue to follow along with you. Subjective Allergies: Coded Allergies: No Known Allergies (Unverified , 01/12/19) Subjective Afebrile. WBC fluctuating Objective Vital Signs Last 24 Hour Vital Signs Date Time Temp Pulse Resp B/P (MAP) Pulse Ox O2 Delivery O2 Flow Rate FiO2 02/04/19 09:00 Room Air 02/04/19 08:00 97.0 83 18 115/69 (84) 95 02/04/19 04:00 97.3 82 18 114/71 (85) 98 02/04/19 00:00 98.0 78 16 118/74 (89) 99 02/03/19 21:00 Room Air 02/03/19 20:00 97.9 80 17 108/69 (82) 97 02/03/19 16:00 98.2 02/03/19 16:00 98.3 82 18 114/71 (85) 98 02/03/19 13:03 98.2 02/03/19 12:00 97.8 89 19 105/81 (89) 96 Height (Feet): 5 Height (Inches): 3.00 Weight (Pounds): 133 Objective Gen: NAD CV: RRR Resp: RRR Abd: hypoactive BS+. Diffusely TTP but worse RUQ. Ext: no edema Neuro: alert. Microbiology Date/Time Source Procedure Growth Status 02/01/19 14:00 Abdominal Abscess Anaerobic Culture - Preliminary NO GROWTH Resulted Laboratory Tests Test 02/04/19 05:45 White Blood Count 19.9 K/UL (4.8-10.8) H Red Blood Count 3.12 M/UL (4.20-5.40) L Hemoglobin 9.9 G/DL (12.0-16.0) L Hematocrit 29.6 % (37.0-47.0) L Mean Corpuscular Volume 95 FL (80-99) Mean Corpuscular Hemoglobin 31.6 PG (27.0-31.0) H Mean Corpuscular Hemoglobin Concent 33.3 G/DL (32.0-36.0) Red Cell Distribution Width 14.9 % (11.6-14.8) H Platelet Count 354 K/UL (150-450) Mean Platelet Volume 6.4 FL (6.5-10.1) L Neutrophils (%) (Auto) % (45.0-75.0) Lymphocytes (%) (Auto) % (20.0-45.0) Monocytes (%) (Auto) % (1.0-10.0) Eosinophils (%) (Auto) % (0.0-3.0) Basophils (%) (Auto) % (0.0-2.0) Differential Total Cells Counted 100 Neutrophils % (Manual) 89 % (45-75) H Lymphocytes % (Manual) 7 % (20-45) L Monocytes % (Manual) 2 % (1-10) Eosinophils % (Manual) 0 % (0-3) Basophils % (Manual) 2 % (0-2) Band Neutrophils 0 % (0-8) Platelet Estimate Adequate Platelet Morphology Normal Sodium Level 139 MMOL/L (136-145) Potassium Level 4.2 MMOL/L (3.5-5.1) Chloride Level 106 MMOL/L (98-107) Carbon Dioxide Level 26 MMOL/L (21-32) Anion Gap 7 mmol/L (5-15) Blood Urea Nitrogen 8 mg/dL (7-18) Creatinine 0.9 MG/DL (0.55-1.30) Estimat Glomerular Filtration Rate > 60 mL/min (>60) Glucose Level 119 MG/DL (74-106) H Calcium Level 7.5 MG/DL (8.5-10.1) L Current Medications Medications (Trade) Dose Ordered Sig/Zuleima Route PRN Reason Start Time Stop Time Status Last Admin Dose Admin Acetaminophen (Tylenol) 650 mg Q8H PRN ORAL Mild Pain/Temp > 100.5 01/12/19 17:30 02/11/19 17:29 02/03/19 10:16 Bisacodyl (Dulcolax) 10 mg BIDPRN PRN RECTAL Constipation 01/16/19 07:45 02/15/19 07:44 01/19/19 18:34 Ceftriaxone Sodium 1 gm/ Dextrose 55 ml @ 110 mls/hr Q24H IVPB 01/30/19 22:00 02/06/19 21:59 02/03/19 21:10 Dextrose (Dextrose 50%) 25 ml Q30M PRN IV Hypoglycemia 01/12/19 13:45 02/11/19 13:44 Dextrose (Dextrose 50%) 50 ml Q30M PRN IV Hypoglycemia 01/12/19 13:45 02/11/19 13:44 Enoxaparin Sodium (Lovenox) 60 mg Q12HR@0600,1800 SUBQ 01/20/19 18:00 02/19/19 17:59 02/04/19 06:05 Fentanyl (Duragesic) 1 patch Q72H TDERMAL 01/25/19 12:00 02/08/19 11:59 02/03/19 12:33 Gabapentin (Neurontin) 300 mg THREE TIMES A DAY ORAL 01/19/19 18:00 02/18/19 17:59 02/04/19 08:27 Hydromorphone HCl (Dilaudid) 4 mg Q4H PRN ORAL Severe Breakthru Pain (>7) 01/31/19 10:54 02/07/19 10:53 02/04/19 08:28 Methylnaltrexone [place] (Relistor) 12 mg ONCE A WEEK SUBQ 02/01/19 09:00 03/03/19 08:59 Metronidazole 100 ml @ 100 mls/hr Q8HR IVPB 01/30/19 15:30 02/06/19 15:29 02/04/19 06:06 Miscellaneous Medication (fentaNYL Destruction) 1 ea Q72H MISC 01/25/19 11:59 02/24/19 11:58 02/03/19 12:29 Naloxone HCl (Narcan) 0.1 mg Q5M PRN IV Sedation scale 3 or 4 01/24/19 09:00 02/23/19 08:54 Ondansetron HCl (Zofran) 4 mg Q6H PRN IVP Nausea & Vomiting 01/12/19 13:45 02/11/19 13:44 01/26/19 08:08 Pantoprazole (Protonix) 40 mg EVERY 12 HOURS ORAL 01/27/19 21:00 02/26/19 20:59 02/04/19 08:27 Polyethylene Glycol (Miralax) 17 gm BEDTIME PRN ORAL constipation 01/22/19 10:30 02/15/19 20:59 Potassium Chloride (K-Dur) 40 meq TWICE A DAY ORAL 01/27/19 10:00 02/26/19 09:59 02/04/19 08:26 Simethicone (Mylicon) 80 mg BIDPRN PRN ORAL gas 01/18/19 21:45 02/17/19 21:44 01/21/19 14:38 Zolpidem Tartrate (Ambien) 5 mg HSPRN PRN ORAL Insomnia 02/03/19 21:15 02/10/19 21:14 Catalina Kirby MD Feb 04, 2019 11:44
--- NOTE | 2019-02-04 11:52 | NUR ---
PT NOTE Attempted to see patient earlier for PT treatment. Patient declining to participate with PT, states that her "oncology doctor" told her that she needs to rest today. Olivia Magallanes RN notified, will follow up tomorrow.
--- NOTE | 2019-02-04 11:53 | General Progress Note ---
Assessment/Plan Status: unchanged Assessment/Plan: (1) Pancreatic cancer ICD Codes: C25.9 - Malignant neoplasm of pancreas, unspecified SNOMED: 226410021 (2) Biliary drain displacement ICD Codes: T85.520A - Displacement of bile duct prosthesis, initial encounter SNOMED: 568400540 (3) Abdominal pain ICD Codes: R10.9 - Unspecified abdominal pain SNOMED: 34045255 Status: unchanged Assessment/Plan Abdominal pelvis CT reviewed 1. Appropriately positioned percutaneous left biliary drain with mild intrahepatic biliary ductal dilatation. 2. Ill-defined pancreatic head/proximal body mass, likely corresponding to stated history of pancreatic neoplasm. Please note evaluation of size and vascular involvement of pancreatic masses is incomplete prior examinations and without multiphasic pancreatic protocol. 3. 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 SMV confluence is not visualized. 4. Color wall thickening with pericholecystic fluid; in the absence of distended gallbladder, these findings are critical for acute pancreatitis and clinical correlation is recommended. No plans for GI procedures at this time. Symptomatic treatment surgical recommendations, no interventions at this time Follow-up pain management recommendations ppi Trend LFTs We will follow-up Subjective ROS Limited/Unobtainable: Yes Allergies: Coded Allergies: No Known Allergies (Unverified , 01/12/19) Subjective constipated Objective Last 24 Hour Vital Signs Date Time Temp Pulse Resp B/P (MAP) Pulse Ox O2 Delivery O2 Flow Rate FiO2 02/04/19 09:00 Room Air 02/04/19 08:00 97.0 83 18 115/69 (84) 95 02/04/19 04:00 97.3 82 18 114/71 (85) 98 02/04/19 00:00 98.0 78 16 118/74 (89) 99 02/03/19 21:00 Room Air 02/03/19 20:00 97.9 80 17 108/69 (82) 97 02/03/19 16:00 98.2 02/03/19 16:00 98.3 82 18 114/71 (85) 98 02/03/19 13:03 98.2 02/03/19 12:00 97.8 89 19 105/81 (89) 96 Intake and Output 02/03/19 02/04/19 19:00 07:00 Intake Total 360 ml Output Total 550 ml 250 ml Balance -190 ml -250 ml Intake Oral 360 ml Other 550 ml 250 ml # Voids 8 4 # Bowel Movements 6 Laboratory Tests 02/04/19 05:45: White Blood Count 19.9H, Red Blood Count 3.12L, Hemoglobin 9.9L, Hematocrit 29.6L, Mean Corpuscular Volume 95, Mean Corpuscular Hemoglobin 31.6H, Mean Corpuscular Hemoglobin Concent 33.3, Red Cell Distribution Width 14.9H, Platelet Count 354, Mean Platelet Volume 6.4L, Neutrophils (%) (Auto) , Lymphocytes (%) (Auto) , Monocytes (%) (Auto) , Eosinophils (%) (Auto) , Basophils (%) (Auto) , Differential Total Cells Counted 100, Neutrophils % ( Manual) 89H, Lymphocytes % (Manual) 7L, Monocytes % (Manual) 2, Eosinophils % ( Manual) 0, Basophils % (Manual) 2, Band Neutrophils 0, Platelet Estimate Adequate, Platelet Morphology Normal, Sodium Level 139, Potassium Level 4.2, Chloride Level 106, Carbon Dioxide Level 26, Anion Gap 7, Blood Urea Nitrogen 8 , Creatinine 0.9, Estimat Glomerular Filtration Rate > 60, Glucose Level 119H, Calcium Level 7.5L Height (Feet): 5 Height (Inches): 3.00 Weight (Pounds): 133 General Appearance: no apparent distress EENT: normal ENT inspection Neck: supple Cardiovascular: normal rate Respiratory/Chest: decreased breath sounds Abdomen: normal bowel sounds, non tender, soft Extremities: non-tender Indra Rocha MD Feb 04, 2019 11:53
--- NOTE | 2019-02-04 11:56 | Surgery Progress Note ---
Surgery Progress Note Subjective Additional Comments resting comfortable no n/v//fc leukocytosis w/shift exam stable drain with minimal output Objective Last 24 Hour Vital Signs Date Time Temp Pulse Resp B/P (MAP) Pulse Ox O2 Delivery O2 Flow Rate FiO2 02/04/19 09:00 Room Air 02/04/19 08:00 97.0 83 18 115/69 (84) 95 02/04/19 04:00 97.3 82 18 114/71 (85) 98 02/04/19 00:00 98.0 78 16 118/74 (89) 99 02/03/19 21:00 Room Air 02/03/19 20:00 97.9 80 17 108/69 (82) 97 02/03/19 16:00 98.2 02/03/19 16:00 98.3 82 18 114/71 (85) 98 02/03/19 13:03 98.2 02/03/19 12:00 97.8 89 19 105/81 (89) 96 I&O Intake and Output 02/03/19 02/04/19 19:00 07:00 Intake Total 360 ml Output Total 550 ml 250 ml Balance -190 ml -250 ml Intake Oral 360 ml Other 550 ml 250 ml # Voids 8 4 # Bowel Movements 6 Dressing: dry Wound: clean Drains: other Cardiovascular: RSR Respiratory: decreased breath sounds Abdomen: soft, present bowel sounds Extremities: no tenderness, no cyanosis Laboratory Tests Test 02/04/19 05:45 White Blood Count 19.9 K/UL (4.8-10.8) H Red Blood Count 3.12 M/UL (4.20-5.40) L Hemoglobin 9.9 G/DL (12.0-16.0) L Hematocrit 29.6 % (37.0-47.0) L Mean Corpuscular Volume 95 FL (80-99) Mean Corpuscular Hemoglobin 31.6 PG (27.0-31.0) H Mean Corpuscular Hemoglobin Concent 33.3 G/DL (32.0-36.0) Red Cell Distribution Width 14.9 % (11.6-14.8) H Platelet Count 354 K/UL (150-450) Mean Platelet Volume 6.4 FL (6.5-10.1) L Neutrophils (%) (Auto) % (45.0-75.0) Lymphocytes (%) (Auto) % (20.0-45.0) Monocytes (%) (Auto) % (1.0-10.0) Eosinophils (%) (Auto) % (0.0-3.0) Basophils (%) (Auto) % (0.0-2.0) Differential Total Cells Counted 100 Neutrophils % (Manual) 89 % (45-75) H Lymphocytes % (Manual) 7 % (20-45) L Monocytes % (Manual) 2 % (1-10) Eosinophils % (Manual) 0 % (0-3) Basophils % (Manual) 2 % (0-2) Band Neutrophils 0 % (0-8) Platelet Estimate Adequate Platelet Morphology Normal Sodium Level 139 MMOL/L (136-145) Potassium Level 4.2 MMOL/L (3.5-5.1) Chloride Level 106 MMOL/L (98-107) Carbon Dioxide Level 26 MMOL/L (21-32) Anion Gap 7 mmol/L (5-15) Blood Urea Nitrogen 8 mg/dL (7-18) Creatinine 0.9 MG/DL (0.55-1.30) Estimat Glomerular Filtration Rate > 60 mL/min (>60) Glucose Level 119 MG/DL (74-106) H Calcium Level 7.5 MG/DL (8.5-10.1) L Plan Problems: (1) Abdominal pain Assessment & Plan: 63-year-old female patient with history of recently diagnosed pancreatic cancer in November 2018 presented to the emergency room at [facility] with complaint of abdominal pain for approximately 1 hour. Patient is status post a biliary drain placement at [facility] approximately 1 week ago. She reported that she had a first treatment of chemotherapy this past Thursday. The patient denied any nausea vomiting, denies any constipation or diarrhea. She states her pain medication was unable to relieve her pain. no fever or chills. labs as below. C Tnoted. surgery called to assist with care and management. tube checked Impression: Diffusely abnormal bowel uptake. Given findings on recent CT scan, this most likely represents enteritis, most likely infectious. Abnormal uptake in the face or upper neck to the left of midline, exact location uncertain. Consider neck CT for better characterization Mildly prominent pulmonary uptake, significance doubted okay for diet tube to drain IV abx d/c planning for SNF f/u with pcp / onc outpatient stable otherwise from surgical standpoint no acute surgical intervention planned Probably has extensive tumor burden given interventions and findings noted. No surgical recommendation at this time. Possible that fluid collection in case in the abdomen infected but to operate on this would be ill advised at this time and patient's current condition. Continue with antibiotics iv fluids trend labs will monitor and follow with exam thank you (2) Biliary drain displacement Assessment & Plan: Daughter was able to inform me with a lot of history. Seems patient unresectable initially and attempted biliary drain placed endoscopically but unsuccessful. A external biliary drain was placed by radiology. Would patient was getting her Port-A-Cath placed a another radiologist felt he could place a internal/external biliary drain and he was able to successfully place a internal/external biliary drain. Had the trade Since. Fell off and she has been without it to drainage recently. In evaluating the trade she has some bilious output from the drain and on imaging drain looks to be appropriately placed. Labs reviewed stable. drain placed to gravity as leaking Drain putting out a ton since placed on 2 bag IMPRESSION: 1. Appropriately positioned percutaneous left biliary drain with mild intrahepatic biliary ductal dilatation. 2. Ill-defined pancreatic head/proximal body mass, likely corresponding to stated history of pancreatic neoplasm. Please note evaluation of size and vascular involvement of pancreatic masses is incomplete prior examinations and without multiphasic pancreatic protocol. 3. 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 SMV confluence is not visualized. 4. Color wall thickening with pericholecystic fluid; in the absence of distended gallbladder, these findings are critical for acute pancreatitis and clinical correlation is recommended. Transhepatic biliary drain noted. 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 Abnormal liver with area of peripheral hypoechogenicity along the posterior right lobe margin. Suggest further evaluation with contrast CT. Obscured pancreas and aorta due to bowel gas. . Interval development of moderate small bowel dilatation. Transition to relatively decompressed terminal ileum demonstrated indicating this is probably a mechanical bowel obstruction. Pneumatosis suspected within one of the proximal small bowel segments in the upper abdomen. No evidence of perforation. Development of multiloculated ascites with prominent collections contiguous with the caudal end of the right lobe of the liver capsule, Morison's pouch and inferior to the right kidney. Other generalized mild ascites noted as well. Internal/external transhepatic biliary drainage catheter in good position. No imaging evidence for catheter malfunction or biliary obstruction. CT noted. likely internal leakage from internal external drain as it was noted to be backing put few days ago hence placed on drainage bag recommend outpatient f/u with oncology and her GI at primary facility to discuss placement of internal metallic larger drain and remove internal / external drain s/p abd drain placement micro noted labs improved on abx s/p new drain 02/01/19 / d/c to SNF. f/u with outpatient onc f/u with outpatient GI for consideration of metallic biliary drain now that she has internal external thank you (3) Pancreatic cancer Assessment & Plan: Pancreatic cancer, non-resectable, based on patient's info. Had a Abdominal pelvis CT reviewed 1. Appropriately positioned percutaneous left biliary drain with mild intrahepatic biliary ductal dilatation. 2. Ill- defined pancreatic head/proximal body mass, likely corresponding to stated history of pancreatic neoplasm. Please note evaluation of size and vascular involvement of pancreatic masses is incomplete prior examinations and without multiphasic pancreatic protocol. 3. 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 She has already started rx Jim Gates Feb 04, 2019 11:56
[2019-02-04 12:00] VITALS: BP 99/69
--- NOTE | 2019-02-04 12:42 | NUR ---
P.T WEEKLY PROGRESS NOTES: Patient being seen by PT for therapeutic exercises, ADL/functional mobility training, balance training and gait training. Patient continues to be limited by pain, fatigue and weakness. Patient currently requires CGA/min assist for bed mobility and for transfers. Patient has increased her ambulation distance/endurance up to 120 ft from 10 ft with the use of a FWW. Patient will continue to benefit from skilled inpatient PT intervention to progress level of activity as tolerated. Recommend SNF for further rehab intervention vs home with family/caregiver assistance and home PT at discharge once medically cleared by .
--- NOTE | 2019-02-04 15:56 | NUR ---
HANDLE TURNERPALLIATIVE CARE COORDINATOR SI; ABDOMINAL PAIN, LEUKOCYTOSIS T. 97.0 HR 83 RR 16 B/P 99/68 RA 98% WBC 19.9 CA 7.5 IS: CEFTRIAXONE IV FLAGYL IV LOVENOX SUBC MED/SURG STATUS
[2019-02-04 16:00] VITALS: BP 103/60
--- NOTE | 2019-02-04 16:33 | Hematology/Onc Progress Note ---
Assessment/Plan Assessment/Plan Assessment/Plan # Pancreatic cancer, non-resectable, based on patient's info. Had a Abdominal pelvis CT reviewed 1. Appropriately positioned percutaneous left biliary drain with mild intrahepatic biliary ductal dilatation. 2. Ill-defined pancreatic head/proximal body mass, likely corresponding to stated history of pancreatic neoplasm. Please note evaluation of size and vascular involvement of pancreatic masses is incomplete prior examinations and without multiphasic pancreatic protocol. 3. 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 She has already started rx. --> gi recs noted No plans for GI procedures at this time --> surgical recommendations, no interventions at this time --> likely to continue chemo and XRT as needed with Dr. Elias Bernal (has received one chemo session) --> CA 19.9 688, in general with this presentation, poor prognosis --> if doesn't get chemo soon, likely to deteriorate, may be hospice candidate --> DW Dr. Shyann Bernal on 02/03/19 # Portal vein thrombosis with abd pain (MAY BE due to tumor encasement) --> may be contributor for abdominal pain --> appears to be chronic portal vein thrombosis on imaging --> minimize pain meds as much as possible --> started on lovenox, okay to transition to noac once discharged # Thrombocytosis, is secondary to underlying process --> currently improved --> less likely myeloproliferative --> smear has been reviewed --> trend 700-->800-->920-->1040k-->997-->304 --> consider asa if worsens, doesn't need leukapheresis # Anemia of myelosuppressive chemo --> okay to continue on chemo at this time --> epo as stimulating factor if drops --> dw patient risks of dvt/VTE # Leukocytosis is likely due to pna --> agree to trend, improved --> abx as per id --> wbc trend 22-->20-->18k-->34k-->22-->19k-->21k-->20-->16.3 -->20 --> ceftriaxone # Transaminitis --> Trend LFTs --> per gi --> advance diet as tolerated # Dvt ppx LOVENOX 1mg/sq bid Appreciate consultation and dw RN Subjective HEENT: Denies: no symptoms, eye pain, blurred vision, tearing, double vision, ear pain, ear discharge, nose pain, nose congestion, throat pain, throat swelling, mouth pain, mouth swelling, other Cardiovascular: Denies: no symptoms, chest pain, edema, irregular heart rate, lightheadedness, palpitations, syncope, other Respiratory: Denies: no symptoms, cough, shortness of breath, SOB with excertion, SOB at rest, sputum, wheezing, other Gastrointestinal/Abdominal: Denies: no symptoms, abdomen distended, abdominal pain, black stools, tarry stools, blood in stool, constipated, diarrhea, difficulty swallowing, nausea, poor appetite, poor fluid intake, rectal bleeding , vomiting, other Genitourinary: Denies: no symptoms, burning, discharge, frequency, flank pain, hematuria, incontinence, pain, urgency, other Neurologic/Psychiatric: Denies: no symptoms, anxiety, depressed, emotional problems, headache, numbness, paresthesia, pre-existing deficit, seizure, tingling, tremors, weakness, other Allergies: Coded Allergies: No Known Allergies (Unverified , 01/12/19) Subjective 01/13: no events to report, no f/c, no night sweats 01/14: no bleeding, on meds, ivf 01/15: no major changes, dw patient, some minor abd pain 01/18: no major events, drain is to gravity, seen by surg, no bleeidng 01/19: awake, alert, getting dressed this am, labs noted 01/20: no events, no bleeding reported, no major changes, no fc 01/21: appears on ct scan that she has a chronic portal vein thrombosis, reviewed results with rad 01/23: to be transferred to [facility] for sob, and also okay with snf placement 01/24: no major changes, no bleeding reported, no f/c 01/25: no events, no complaints in the am, sleeping, no chills 01/26: no bleeding noted, no f/c, no night sweats 02/03: awake and alert, wbc 16, on ceftriaxone, h/h stable 02/04: no events, no bleeding, labs noted, feeling tired this am Objective Objective Current Medications Medications (Trade) Dose Ordered Sig/Zuleima Route PRN Reason Start Time Stop Time Status Last Admin Dose Admin Acetaminophen (Tylenol) 650 mg Q8H PRN ORAL Mild Pain/Temp > 100.5 01/12/19 17:30 02/11/19 17:29 02/03/19 10:16 Bisacodyl (Dulcolax) 10 mg BIDPRN PRN RECTAL Constipation 01/16/19 07:45 02/15/19 07:44 01/19/19 18:34 Ceftriaxone Sodium 1 gm/ Dextrose 55 ml @ 110 mls/hr Q24H IVPB 01/30/19 22:00 02/06/19 21:59 02/03/19 21:10 Dextrose (Dextrose 50%) 25 ml Q30M PRN IV Hypoglycemia 01/12/19 13:45 02/11/19 13:44 Dextrose (Dextrose 50%) 50 ml Q30M PRN IV Hypoglycemia 01/12/19 13:45 02/11/19 13:44 Enoxaparin Sodium (Lovenox) 60 mg Q12HR@0600,1800 SUBQ 01/20/19 18:00 02/19/19 17:59 02/04/19 06:05 Fentanyl (Duragesic) 1 patch Q72H TDERMAL 01/25/19 12:00 02/08/19 11:59 02/03/19 12:33 Gabapentin (Neurontin) 300 mg THREE TIMES A DAY ORAL 01/19/19 18:00 02/18/19 17:59 02/04/19 13:58 Hydromorphone HCl (Dilaudid) 4 mg Q4H PRN ORAL Severe Breakthru Pain (>7) 01/31/19 10:54 02/07/19 10:53 02/04/19 12:31 Methylnaltrexone [place] (Relistor) 12 mg ONCE A WEEK SUBQ 02/01/19 09:00 03/03/19 08:59 Metronidazole 100 ml @ 100 mls/hr Q8HR IVPB 01/30/19 15:30 02/06/19 15:29 02/04/19 13:59 Miscellaneous Medication (fentaNYL Destruction) 1 ea Q72H MISC 01/25/19 11:59 02/24/19 11:58 02/03/19 12:29 Naloxone HCl (Narcan) 0.1 mg Q5M PRN IV Sedation scale 3 or 4 01/24/19 09:00 02/23/19 08:54 Ondansetron HCl (Zofran) 4 mg Q6H PRN IVP Nausea & Vomiting 01/12/19 13:45 02/11/19 13:44 01/26/19 08:08 Pantoprazole (Protonix) 40 mg EVERY 12 HOURS ORAL 01/27/19 21:00 02/26/19 20:59 02/04/19 08:27 Polyethylene Glycol (Miralax) 17 gm BEDTIME PRN ORAL constipation 01/22/19 10:30 02/15/19 20:59 Potassium Chloride (K-Dur) 40 meq TWICE A DAY ORAL 01/27/19 10:00 02/26/19 09:59 02/04/19 08:26 Simethicone (Mylicon) 80 mg BIDPRN PRN ORAL gas 01/18/19 21:45 02/17/19 21:44 01/21/19 14:38 Zolpidem Tartrate (Ambien) 5 mg HSPRN PRN ORAL Insomnia 02/03/19 21:15 02/10/19 21:14 Last 24 Hour Vital Signs Date Time Temp Pulse Resp B/P (MAP) Pulse Ox O2 Delivery O2 Flow Rate FiO2 02/04/19 12:00 97.0 83 16 99/69 (79) 98 02/04/19 09:00 Room Air 02/04/19 08:00 97.0 83 18 115/69 (84) 95 02/04/19 04:00 97.3 82 18 114/71 (85) 98 02/04/19 00:00 98.0 78 16 118/74 (89) 99 02/03/19 21:00 Room Air 02/03/19 20:00 97.9 80 17 108/69 (82) 97 02/03/19 16:00 98.2 02/03/19 16:00 98.3 82 18 114/71 (85) 98 02/03/19 13:03 98.2 02/03/19 12:00 97.8 89 19 105/81 (89) 96 02/03/19 10:46 98.2 02/03/19 09:00 Room Air 02/03/19 08:00 97.0 78 18 105/65 (78) 97 02/03/19 04:00 98.2 82 18 99/61 (74) 97 02/03/19 00:00 98.2 86 18 107/64 (78) 97 02/02/19 21:00 Room Air 02/02/19 20:00 98.2 91 18 106/62 (77) 97 Intake and Output 02/03/19 02/04/19 19:00 07:00 Intake Total 360 ml Output Total 550 ml 250 ml Balance -190 ml -250 ml Intake Oral 360 ml Other 550 ml 250 ml # Voids 8 4 # Bowel Movements 6 Labs Test 02/02/19 05:35 02/03/19 06:43 02/04/19 05:45 White Blood Count 16.8 K/UL (4.8-10.8) 16.3 K/UL (4.8-10.8) 19.9 K/UL (4.8-10.8) Red Blood Count 3.15 M/UL (4.20-5.40) 3.05 M/UL (4.20-5.40) 3.12 M/UL (4.20-5.40) Hemoglobin 9.9 G/DL (12.0-16.0) 9.5 G/DL (12.0-16.0) 9.9 G/DL (12.0-16.0) Hematocrit 29.5 % (37.0-47.0) 28.4 % (37.0-47.0) 29.6 % (37.0-47.0) Mean Corpuscular Volume 94 FL (80-99) 93 FL (80-99) 95 FL (80-99) Mean Corpuscular Hemoglobin 31.3 PG (27.0-31.0) 31.3 PG (27.0-31.0) 31.6 PG (27.0-31.0) Mean Corpuscular Hemoglobin Concent 33.4 G/DL (32.0-36.0) 33.5 G/DL (32.0-36.0) 33.3 G/DL (32.0-36.0) Red Cell Distribution Width 14.5 % (11.6-14.8) 14.9 % (11.6-14.8) 14.9 % (11.6-14.8) Platelet Count 320 K/UL (150-450) 304 K/UL (150-450) 354 K/UL (150-450) Mean Platelet Volume 6.4 FL (6.5-10.1) 6.3 FL (6.5-10.1) 6.4 FL (6.5-10.1) Neutrophils (%) (Auto) 79.7 % (45.0-75.0) 79.9 % (45.0-75.0) % (45.0-75.0) Lymphocytes (%) (Auto) 6.7 % (20.0-45.0) 6.8 % (20.0-45.0) % (20.0-45.0) Monocytes (%) (Auto) 11.9 % (1.0-10.0) 11.5 % (1.0-10.0) % (1.0-10.0) Eosinophils (%) (Auto) 0.8 % (0.0-3.0) 0.9 % (0.0-3.0) % (0.0-3.0) Basophils (%) (Auto) 1.0 % (0.0-2.0) 0.9 % (0.0-2.0) % (0.0-2.0) Sodium Level 138 MMOL/L (136-145) 137 MMOL/L (136-145) 139 MMOL/L (136-145) Potassium Level 4.2 MMOL/L (3.5-5.1) 3.6 MMOL/L (3.5-5.1) 4.2 MMOL/L (3.5-5.1) Chloride Level 107 MMOL/L (98-107) 106 MMOL/L (98-107) 106 MMOL/L (98-107) Carbon Dioxide Level 25 MMOL/L (21-32) 23 MMOL/L (21-32) 26 MMOL/L (21-32) Anion Gap 6 mmol/L (5-15) 8 mmol/L (5-15) 7 mmol/L (5-15) Blood Urea Nitrogen 10 mg/dL (7-18) 9 mg/dL (7-18) 8 mg/dL (7-18) Creatinine 0.9 MG/DL (0.55-1.30) 0.9 MG/DL (0.55-1.30) 0.9 MG/DL (0.55-1.30) Estimat Glomerular Filtration Rate > 60 mL/min (>60) > 60 mL/min (>60) > 60 mL/min (>60) Glucose Level 100 MG/DL (74-106) 101 MG/DL (74-106) 119 MG/DL (74-106) Calcium Level 7.3 MG/DL (8.5-10.1) 7.4 MG/DL (8.5-10.1) 7.5 MG/DL (8.5-10.1) Differential Total Cells Counted 100 Neutrophils % (Manual) 89 % (45-75) Lymphocytes % (Manual) 7 % (20-45) Monocytes % (Manual) 2 % (1-10) Eosinophils % (Manual) 0 % (0-3) Basophils % (Manual) 2 % (0-2) Band Neutrophils 0 % (0-8) Platelet Estimate Adequate Platelet Morphology Normal Height (Feet): 5 Height (Inches): 3.00 Weight (Pounds): 133 Roberto Davidson MD Feb 04, 2019 16:33
--- NOTE | 2019-02-04 19:15 | NUR ---
NURSE NOTES: Received report from Olivia mata RN. Pt AAO x 4, on room air, resting in bed. IV intact and patent. Biliary drainage bags intact and draining by gravity. Commode and walker at bedside. Fall precaution maintained. No respiratory distress noted at this time. Bed locked, lowest position, alarm on, side rails up x 2, call light within reach. Will continue to monitor.
--- NOTE | 2019-02-04 19:15 | NUR ---
HAND-OFF: Report given to CAITIE Nichols.
[2019-02-04 20:00] VITALS: BP 108/67
[2019-02-04] MEDS: cefTRIAXone 1gm/D5W 55ml IVPB SCH ×2 (21:54)
--- NOTE | 2019-02-04 23:26 | NUR ---
HAND-OFF: Report given to CAITIE Marrero.
--- NOTE | 2019-02-04 23:39 | NUR ---
NURSE NOTES: Received report from Veronika BLOOD, patient is asleep at this time, no acute distress noted, patient is stable at this time, call light is within reach, bed is in low position, locked and alarm is on, will continue to monitor for comfort and safety.
[2019-02-05] VITALS: BP 111/69
[2019-02-05] MEDS: Zolpidem 5mg tab ORAL PRN ×2 (00:27→21:36)
[2019-02-05] MEDS: HYDROmorphone 4mg tab ORAL PRN ×6 (00:53→23:31)
[2019-02-05 04:00] VITALS: BP 106/59
[2019-02-05] MEDS: metroNIDAZOLE 500mg Premix IVPB SCH ×3 (05:48→22:19)
[2019-02-05] MEDS: Enoxaparin 60mg Inj SUBQ SCH ×2 (05:49→18:27)
--- NOTE | 2019-02-05 07:09 | NUR ---
HAND-OFF: Report given to Marianne BLOOD.
--- NOTE | 2019-02-05 07:15 | NUR ---
NURSE NOTES: Received report from CAITIE Marrero. Pt is A/Ox4, on RA, no apparent distress noted, "feeling better" than yesterday. IV site intact and TKO running. Bed locked in lowest position, side rails up, call light within reach. Will continue to monitor.
[2019-02-05 08:00] VITALS: BP 105/66
[2019-02-05 08:04] LABS: BASOPHILS % (AUTO) 0.9 % (0.0-2.0); EOSINOPHILS % (AUTO) 0.7 % (0.0-3.0); HEMOGLOBIN 9.7 G/DL (12.0-16.0); LYMPHOCYTES % (AUTO) 9.5 % (20.0-45.0); MEAN CORPUSCULAR VOLUME 94 FL (80-99); MONOCYTES % (AUTO) 10.2 % (1.0-10.0); NEUTROPHILS % (AUTO) 78.8 % (45.0-75.0); PLATELET COUNT 395 K/UL (150-450); RED BLOOD COUNT 3.09 M/UL (4.20-5.40); RED CELL DISTRIBUTION WIDTH 15.1 % (11.6-14.8); WHITE BLOOD COUNT 16.3 K/UL (4.8-10.8)
[2019-02-05 08:20] LABS: ANION GAP 9 mmol/L (5-15); BLOOD UREA NITROGEN 6 mg/dL (7-18); CALCIUM 7.3 MG/DL (8.5-10.1); CARBON DIOXIDE 25 MMOL/L (21-32); CHLORIDE 105 MMOL/L (98-107); POTASSIUM 3.6 MMOL/L (3.5-5.1); SODIUM 139 MMOL/L (136-145)
--- NOTE | 2019-02-05 08:32 | Infectious Diseases Prog Note ---
Assessment/Plan Assessment/Plan Assessment/Plan Fever 01/13, SP Leukocytosis, improving 01/14 bcx ng tumor related? Ileus related? biloma related? atelectasis? 01/24 Indium scan: Diffusely abnormal bowel uptake. Given findings on recent CT scan, this most likely represents enteritis, most likely infectious. Abnormal uptake in the face or upper neck to the left of midline, exact location uncertain. Consider neck CT for better characterization. Mildly prominent pulmonary uptake, significance doubted. On further review the images, activity in the right midabdomen is greater than would be accounted for acute spine hepatic activity, and there is significant activity inferior to the right lobe of the liver in the anterior abdomen. This correlates with a large loculated fluid collection demonstrated on recent CT scan of 01/20/2019, and may indicate infection of this collection. The smaller subcapsular collection in the posterior right hepatic lobe is difficult to differentiate from normal liver activity on this exam, so it is not possible to assess for the presence or absence of abnormal activity in this. 01/27 US: Aspiration of posterior hepatic subcapsular collection, yielding serous fluid which does not appear grossly infected. No drainage catheter placed , therefore, but a specimen was sent to the lab for analysis. Placement of 8.5 Micronesian pigtail drainage catheter in anterior right lower quadrant intraperitoneal collection. This yielded borderline purulent appearing body brown fluid. Specimen sent to lab for analysis. 01/27 fluid: 76K WBC(92% PMN). cx: 3+ E coli 02/01: Successful ultrasound-guided placement of a percutaneous drain within a fluid collection that was previously infected and previously addressed by a percutaneous drain which had accidentally fallen out yesterday. PNA, CAP? -CXR: Patchy consolidation in the right lower lung, concerning for pneumonia. Mild pulmonary vascular congestion. -flu swab negative urine legionella antigen negative Abdominal pain Pancreatitis? lipase negative 01/12 CT abd/p: Appropriately positioned percutaneous left biliary drain with mild intrahepatic biliary ductal dilatation. Ill-defined pancreatic head/ proximal body mass, likely corresponding to stated history of pancreatic neoplasm. Please note evaluation of size and vascular involvement of pancreatic masses is incomplete prior examinations and without multiphasic pancreatic protocol. 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 SMV confluence is not visualized. Gallbladder wall thickening with pericholecystic fluid; in the absence of distended gallbladder, these findings are critical for acute pancreatitis and clinical correlation is recommended. 01/19 US Abd: Transhepatic biliary drain noted. 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 Abnormal liver with area of peripheral hypoechogenicity along the posterior right lobe margin. Suggest further evaluation with contrast CT. Obscured pancreas and aorta due to bowel gas. Trace ascites 01/20 CT A/P: Interval development of moderate small bowel dilatation. Transition to relatively decompressed terminal ileum demonstrated indicating this is probably a mechanical bowel obstruction. Pneumatosis suspected within one of the proximal small bowel segments in the upper abdomen. No evidence of perforation. Development of multiloculated ascites with prominent collections contiguous with the caudal end of the right lobe of the liver capsule, Morison's pouch and inferior to the right kidney. Other generalized mild ascites noted as well. Internal/external transhepatic biliary drainage catheter in good position. No imaging evidence for catheter malfunction or biliary obstruction. Right basilar consolidation versus atelectasis. Correlate for pneumonia. Trace bilateral pleural effusions. Anasarca recently diagnosed pancreatic CA 11/2018 - s/p biliary drain 1 week [employer] at [facility] - 1st chemotherapy treatment 01/10/19 tobacco abuse Plan: Ceftriaxone, flagyl #7...f/u repeat drainage cx. if negative, fluid collection likely now sterile(seroma, biloma, hematoma) and will consider very short duration of antibiotics. ok to DC to lower level of care. Still pending facility. 01/30 SP Meropenem #6 01/25 SP Ceftriaxone #3, flagyl #1, vancomycin #11 01/22 SP Azithromycin #7 01/23 SP Zosyn #8 01/17 DC Tamiflu #2 -f/u cx -Monitor CBC/CMP, temperatures -f/u Bcx x2 -aspiration precautions Subjective Allergies: Coded Allergies: No Known Allergies (Unverified , 01/12/19) Subjective comfortable Objective Vital Signs Last 24 Hour Vital Signs Date Time Temp Pulse Resp B/P (MAP) Pulse Ox O2 Delivery O2 Flow Rate FiO2 02/05/19 08:00 98.2 94 18 105/66 (79) 97 02/05/19 07:07 97.7 02/05/19 04:00 97.7 91 20 106/59 (75) 96 02/05/19 00:00 99.0 81 18 111/69 (83) 94 02/04/19 21:00 Room Air 02/04/19 20:00 97.9 82 18 108/67 (81) 96 02/04/19 16:00 98.1 82 18 103/60 (74) 98 02/04/19 12:00 97.0 83 16 99/69 (79) 98 02/04/19 09:00 Room Air Height (Feet): 5 Height (Inches): 3.00 Weight (Pounds): 133 Respiratory/Chest: normal breath sounds Cardiovascular: regularly irregular Abdomen: non distended Laboratory Tests Test 02/05/19 06:30 White Blood Count 16.3 K/UL (4.8-10.8) H Red Blood Count 3.09 M/UL (4.20-5.40) L Hemoglobin 9.7 G/DL (12.0-16.0) L Hematocrit 29.0 % (37.0-47.0) L Mean Corpuscular Volume 94 FL (80-99) Mean Corpuscular Hemoglobin 31.3 PG (27.0-31.0) H Mean Corpuscular Hemoglobin Concent 33.3 G/DL (32.0-36.0) Red Cell Distribution Width 15.1 % (11.6-14.8) H Platelet Count 395 K/UL (150-450) Mean Platelet Volume 6.0 FL (6.5-10.1) L Neutrophils (%) (Auto) 78.8 % (45.0-75.0) H Lymphocytes (%) (Auto) 9.5 % (20.0-45.0) L Monocytes (%) (Auto) 10.2 % (1.0-10.0) H Eosinophils (%) (Auto) 0.7 % (0.0-3.0) Basophils (%) (Auto) 0.9 % (0.0-2.0) Sodium Level 139 MMOL/L (136-145) Potassium Level 3.6 MMOL/L (3.5-5.1) Chloride Level 105 MMOL/L (98-107) Carbon Dioxide Level 25 MMOL/L (21-32) Anion Gap 9 mmol/L (5-15) Blood Urea Nitrogen 6 mg/dL (7-18) L Creatinine 1.0 MG/DL (0.55-1.30) Estimat Glomerular Filtration Rate 56.2 mL/min (>60) Glucose Level 89 MG/DL (74-106) Calcium Level 7.3 MG/DL (8.5-10.1) L Current Medications Medications (Trade) Dose Ordered Sig/Zuleima Route PRN Reason Start Time Stop Time Status Last Admin Dose Admin Acetaminophen (Tylenol) 650 mg Q8H PRN ORAL Mild Pain/Temp > 100.5 01/12/19 17:30 02/11/19 17:29 02/03/19 10:16 Bisacodyl (Dulcolax) 10 mg BIDPRN PRN RECTAL Constipation 01/16/19 07:45 02/15/19 07:44 01/19/19 18:34 Ceftriaxone Sodium 1 gm/ Dextrose 55 ml @ 110 mls/hr Q24H IVPB 01/30/19 22:00 02/06/19 21:59 02/04/19 21:54 Dextrose (Dextrose 50%) 25 ml Q30M PRN IV Hypoglycemia 01/12/19 13:45 02/11/19 13:44 Dextrose (Dextrose 50%) 50 ml Q30M PRN IV Hypoglycemia 01/12/19 13:45 02/11/19 13:44 Enoxaparin Sodium (Lovenox) 60 mg Q12HR@0600,1800 SUBQ 01/20/19 18:00 02/19/19 17:59 02/05/19 05:49 Fentanyl (Duragesic) 1 patch Q72H TDERMAL 01/25/19 12:00 02/08/19 11:59 02/03/19 12:33 Gabapentin (Neurontin) 300 mg THREE TIMES A DAY ORAL 01/19/19 18:00 02/18/19 17:59 02/05/19 08:27 Hydromorphone HCl (Dilaudid) 4 mg Q4H PRN ORAL Severe Breakthru Pain (>7) 01/31/19 10:54 02/07/19 10:53 02/05/19 06:14 Methylnaltrexone [place] (Relistor) 12 mg ONCE A WEEK SUBQ 02/01/19 09:00 03/03/19 08:59 Metronidazole 100 ml @ 100 mls/hr Q8HR IVPB 01/30/19 15:30 02/06/19 15:29 02/05/19 05:48 Miscellaneous Medication (fentaNYL Destruction) 1 ea Q72H MISC 01/25/19 11:59 02/24/19 11:58 02/03/19 12:29 Naloxone HCl (Narcan) 0.1 mg Q5M PRN IV Sedation scale 3 or 4 01/24/19 09:00 02/23/19 08:54 Ondansetron HCl (Zofran) 4 mg Q6H PRN IVP Nausea & Vomiting 01/12/19 13:45 02/11/19 13:44 01/26/19 08:08 Pantoprazole (Protonix) 40 mg EVERY 12 HOURS ORAL 01/27/19 21:00 02/26/19 20:59 02/05/19 08:26 Polyethylene Glycol (Miralax) 17 gm BEDTIME PRN ORAL constipation 01/22/19 10:30 02/15/19 20:59 Potassium Chloride (K-Dur) 40 meq TWICE A DAY ORAL 01/27/19 10:00 02/26/19 09:59 02/05/19 08:27 Simethicone (Mylicon) 80 mg BIDPRN PRN ORAL gas 01/18/19 21:45 02/17/19 21:44 01/21/19 14:38 Zolpidem Tartrate (Ambien) 5 mg HSPRN PRN ORAL Insomnia 02/03/19 21:15 02/10/19 21:14 02/05/19 00:27 Sanjeev Burns MD Feb 05, 2019 08:32
--- NOTE | 2019-02-05 09:54 | General Progress Note ---
Assessment/Plan Problem List: (1) SOB (shortness of breath) ICD Codes: R06.02 - Shortness of breath SNOMED: 914634343 (2) Nausea & vomiting ICD Codes: R11.2 - Nausea with vomiting, unspecified SNOMED: 89048896 (3) Malnutrition ICD Codes: E46 - Unspecified protein-calorie malnutrition SNOMED: 74544592 (4) UTI (urinary tract infection) ICD Codes: N39.0 - Urinary tract infection, site not specified SNOMED: 66807347 (5) Abdominal pain ICD Codes: R10.9 - Unspecified abdominal pain SNOMED: 62948793 (6) Biliary drain displacement ICD Codes: T85.520A - Displacement of bile duct prosthesis, initial encounter SNOMED: 038387170 (7) Pancreatic cancer ICD Codes: C25.9 - Malignant neoplasm of pancreas, unspecified SNOMED: 433940860 Status: unchanged Assessment/Plan: pt diet pain control abx cbc bmp am dc plan snf Subjective Constitutional: Reports: weakness Allergies: Coded Allergies: No Known Allergies (Unverified , 01/12/19) All Systems: reviewed and negative except above Subjective calm sleepy Objective Last 24 Hour Vital Signs Date Time Temp Pulse Resp B/P (MAP) Pulse Ox O2 Delivery O2 Flow Rate FiO2 02/05/19 08:00 98.2 94 18 105/66 (79) 97 02/05/19 07:07 97.7 02/05/19 04:00 97.7 91 20 106/59 (75) 96 02/05/19 00:00 99.0 81 18 111/69 (83) 94 02/04/19 21:00 Room Air 02/04/19 20:00 97.9 82 18 108/67 (81) 96 02/04/19 16:00 98.1 82 18 103/60 (74) 98 02/04/19 12:00 97.0 83 16 99/69 (79) 98 Intake and Output 02/04/19 02/05/19 18:59 06:59 Intake Total 380 ml Output Total 750 ml Balance 380 ml -750 ml Intake Oral 380 ml Other 750 ml # Voids 7 # Bowel Movements 5 1 Laboratory Tests 02/05/19 06:30: White Blood Count 16.3H, Red Blood Count 3.09L, Hemoglobin 9.7L, Hematocrit 29.0L, Mean Corpuscular Volume 94, Mean Corpuscular Hemoglobin 31.3H, Mean Corpuscular Hemoglobin Concent 33.3, Red Cell Distribution Width 15.1H, Platelet Count 395, Mean Platelet Volume 6.0L, Neutrophils (%) (Auto) 78.8H, Lymphocytes (%) (Auto) 9.5L, Monocytes (%) (Auto) 10.2H, Eosinophils (%) (Auto) 0.7, Basophils (%) (Auto) 0.9, Sodium Level 139, Potassium Level 3.6, Chloride Level 105, Carbon Dioxide Level 25, Anion Gap 9, Blood Urea Nitrogen 6L, Creatinine 1.0, Estimat Glomerular Filtration Rate 56.2, Glucose Level 89, Calcium Level 7.3L Height (Feet): 5 Height (Inches): 3.00 Weight (Pounds): 133 General Appearance: lethargic EENT: normal ENT inspection Neck: normal alignment Cardiovascular: normal peripheral pulses, normal rate, regular rhythm Respiratory/Chest: chest wall non-tender, lungs clear, normal breath sounds Abdomen: decreased bowel sounds Extremities: non-tender Edema: no edema noted Arm (L), no edema noted Arm (R), no edema noted Leg (L), no edema noted Leg (R), no edema noted Pedal (L), no edema noted Pedal (R), no edema noted Generalized Neurologic: sensory deficit Skin: normal pigmentation, warm/dry Elvis Luke DO Feb 05, 2019 09:54
[2019-02-05 12:00] VITALS: BP 118/72
--- NOTE | 2019-02-05 12:15 | Nephrology Progress Note ---
Assessment/Plan Problem List: (1) Electrolyte abnormality (2) Pancreatic cancer (3) Biliary drain displacement (4) Abdominal pain (5) Malnutrition Assessment HypoKalemia HypoNatremia Abdominal pain. Nausea. Vomiting. UTI. Pancreatic cancer. Biliary drain displacement Malnutrition. Anemia Plan K mag phos supplement as needed, check labs change IV to isotonic solution monitor lytes start PO Folic acid medical terminologist plan?? Subjective ROS Limited/Unobtainable: No Constitutional: Reports: malaise Objective Objective Last 24 Hour Vital Signs Date Time Temp Pulse Resp B/P (MAP) Pulse Ox O2 Delivery O2 Flow Rate FiO2 02/05/19 08:00 98.2 94 18 105/66 (79) 97 02/05/19 07:07 97.7 02/05/19 04:00 97.7 91 20 106/59 (75) 96 02/05/19 00:00 99.0 81 18 111/69 (83) 94 02/04/19 21:00 Room Air 02/04/19 20:00 97.9 82 18 108/67 (81) 96 02/04/19 16:00 98.1 82 18 103/60 (74) 98 Intake and Output 02/04/19 02/05/19 18:59 06:59 Intake Total 380 ml Output Total 750 ml Balance 380 ml -750 ml Intake Oral 380 ml Other 750 ml # Voids 7 # Bowel Movements 5 1 Laboratory Tests 02/05/19 06:30: White Blood Count 16.3H, Red Blood Count 3.09L, Hemoglobin 9.7L, Hematocrit 29.0L, Mean Corpuscular Volume 94, Mean Corpuscular Hemoglobin 31.3H, Mean Corpuscular Hemoglobin Concent 33.3, Red Cell Distribution Width 15.1H, Platelet Count 395, Mean Platelet Volume 6.0L, Neutrophils (%) (Auto) 78.8H, Lymphocytes (%) (Auto) 9.5L, Monocytes (%) (Auto) 10.2H, Eosinophils (%) (Auto) 0.7, Basophils (%) (Auto) 0.9, Sodium Level 139, Potassium Level 3.6, Chloride Level 105, Carbon Dioxide Level 25, Anion Gap 9, Blood Urea Nitrogen 6L, Creatinine 1.0, Estimat Glomerular Filtration Rate 56.2, Glucose Level 89, Calcium Level 7.3L Height (Feet): 5 Height (Inches): 3.00 Weight (Pounds): 133 General Appearance: no apparent distress Objective no change Kapil Turcios MD Feb 05, 2019 12:15
--- NOTE | 2019-02-05 14:23 | Surgery Progress Note ---
Surgery Progress Note Subjective Symptoms: improved Objective Last 24 Hour Vital Signs Date Time Temp Pulse Resp B/P (MAP) Pulse Ox O2 Delivery O2 Flow Rate FiO2 02/05/19 08:00 98.2 94 18 105/66 (79) 97 02/05/19 07:07 97.7 02/05/19 04:00 97.7 91 20 106/59 (75) 96 02/05/19 00:00 99.0 81 18 111/69 (83) 94 02/04/19 21:00 Room Air 02/04/19 20:00 97.9 82 18 108/67 (81) 96 02/04/19 16:00 98.1 82 18 103/60 (74) 98 I&O Intake and Output 02/04/19 02/05/19 19:00 07:00 Intake Total 380 ml Output Total 750 ml Balance 380 ml -750 ml Intake Oral 380 ml Other 750 ml # Voids 7 # Bowel Movements 5 1 Dressing: dry Wound: clean Drains: other Cardiovascular: RSR Respiratory: clear Abdomen: soft, flat, non-tender, present bowel sounds Extremities: no edema, no tenderness, no cyanosis Laboratory Tests Test 02/05/19 06:30 White Blood Count 16.3 K/UL (4.8-10.8) H Red Blood Count 3.09 M/UL (4.20-5.40) L Hemoglobin 9.7 G/DL (12.0-16.0) L Hematocrit 29.0 % (37.0-47.0) L Mean Corpuscular Volume 94 FL (80-99) Mean Corpuscular Hemoglobin 31.3 PG (27.0-31.0) H Mean Corpuscular Hemoglobin Concent 33.3 G/DL (32.0-36.0) Red Cell Distribution Width 15.1 % (11.6-14.8) H Platelet Count 395 K/UL (150-450) Mean Platelet Volume 6.0 FL (6.5-10.1) L Neutrophils (%) (Auto) 78.8 % (45.0-75.0) H Lymphocytes (%) (Auto) 9.5 % (20.0-45.0) L Monocytes (%) (Auto) 10.2 % (1.0-10.0) H Eosinophils (%) (Auto) 0.7 % (0.0-3.0) Basophils (%) (Auto) 0.9 % (0.0-2.0) Sodium Level 139 MMOL/L (136-145) Potassium Level 3.6 MMOL/L (3.5-5.1) Chloride Level 105 MMOL/L (98-107) Carbon Dioxide Level 25 MMOL/L (21-32) Anion Gap 9 mmol/L (5-15) Blood Urea Nitrogen 6 mg/dL (7-18) L Creatinine 1.0 MG/DL (0.55-1.30) Estimat Glomerular Filtration Rate 56.2 mL/min (>60) Glucose Level 89 MG/DL (74-106) Calcium Level 7.3 MG/DL (8.5-10.1) L Plan Problems: (1) Abdominal pain Assessment & Plan: 63-year-old female patient with history of recently diagnosed pancreatic cancer in November 2018 presented [place] [facility] [place] complaint of abdominal pain for approximately 1 hour. Patient is status post a biliary drain placement at [facility] approximately 1 week ago. She reported that she had a first treatment of chemotherapy this past Thursday. The patient denied any nausea vomiting, denies any constipation or diarrhea. She states her pain medication was unable to relieve her pain. no fever or chills. labs as below. C Tnoted. surgery called to assist with care and management. tube checked Impression: Diffusely abnormal bowel uptake. Given findings on recent CT scan, this most likely represents enteritis, most likely infectious. Abnormal uptake in the face or upper neck to the left of midline, exact location uncertain. Consider neck CT for better characterization Mildly prominent pulmonary uptake, significance doubted okay for diet tube to drain IV abx d/c planning for SNF f/u with pcp / onc outpatient stable otherwise from surgical standpoint no acute surgical intervention planned Probably has extensive tumor burden given interventions and findings noted. No surgical recommendation at this time. Possible that fluid collection in case in the abdomen infected but to operate on this would be ill advised at this time and patient's current condition. Continue with antibiotics iv fluids trend labs will monitor and follow with exam thank you (2) Biliary drain displacement Assessment & Plan: Daughter was able to inform me with a lot of history. Seems patient unresectable initially and attempted biliary drain placed endoscopically but unsuccessful. A external biliary drain was placed by radiology. Would patient was getting her Port-A-Cath placed a another radiologist felt he could place a internal/external biliary drain and he was able to successfully place a internal/external biliary drain. Had the trade Since. Fell off and she has been without it to drainage recently. In evaluating the trade she has some bilious output from the drain and on imaging drain looks to be appropriately placed. Labs reviewed stable. drain placed to gravity as leaking Drain putting out a ton since placed on 2 bag IMPRESSION: 1. Appropriately positioned percutaneous left biliary drain with mild intrahepatic biliary ductal dilatation. 2. Ill-defined pancreatic head/proximal body mass, likely corresponding to stated history of pancreatic neoplasm. Please note evaluation of size and vascular involvement of pancreatic masses is incomplete prior examinations and without multiphasic pancreatic protocol. 3. 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 SMV confluence is not visualized. 4. Color wall thickening with pericholecystic fluid; in the absence of distended gallbladder, these findings are critical for acute pancreatitis and clinical correlation is recommended. Transhepatic biliary drain noted. 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 Abnormal liver with area of peripheral hypoechogenicity along the posterior right lobe margin. Suggest further evaluation with contrast CT. Obscured pancreas and aorta due to bowel gas. . Interval development of moderate small bowel dilatation. Transition to relatively decompressed terminal ileum demonstrated indicating this is probably a mechanical bowel obstruction. Pneumatosis suspected within one of the proximal small bowel segments in the upper abdomen. No evidence of perforation. Development of multiloculated ascites with prominent collections contiguous with the caudal end of the right lobe of the liver capsule, Morison's pouch and inferior to the right kidney. Other generalized mild ascites noted as well. Internal/external transhepatic biliary drainage catheter in good position. No imaging evidence for catheter malfunction or biliary obstruction. CT noted. likely internal leakage from internal external drain as it was noted to be backing put few days ago hence placed on drainage bag recommend outpatient f/u with oncology and her GI at primary facility to discuss placement of internal metallic larger drain and remove internal / external drain s/p abd drain placement micro noted labs improved on abx s/p new drain 02/01/19 / d/c to SNF. f/u with outpatient onc f/u with outpatient GI for consideration of metallic biliary drain now that she has internal external thank you (3) Pancreatic cancer Assessment & Plan: Pancreatic cancer, non-resectable, based on patient's info. Had a Abdominal pelvis CT reviewed 1. Appropriately positioned percutaneous left biliary drain with mild intrahepatic biliary ductal dilatation. 2. Ill- defined pancreatic head/proximal body mass, likely corresponding to stated history of pancreatic neoplasm. Please note evaluation of size and vascular involvement of pancreatic masses is incomplete prior examinations and without multiphasic pancreatic protocol. 3. 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 She has already started rx Jim Gates Feb 05, 2019 14:23
--- NOTE | 2019-02-05 15:09 | Hematology/Onc Progress Note ---
Assessment/Plan Assessment/Plan Assessment/Plan # Pancreatic cancer, non-resectable, based on patient's info. Had a Abdominal pelvis CT reviewed 1. Appropriately positioned percutaneous left biliary drain with mild intrahepatic biliary ductal dilatation. 2. Ill-defined pancreatic head/proximal body mass, likely corresponding to stated history of pancreatic neoplasm. Please note evaluation of size and vascular involvement of pancreatic masses is incomplete prior examinations and without multiphasic pancreatic protocol. 3. 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 She has already started rx. --> gi recs noted No plans for GI procedures at this time --> surgical recommendations, no interventions at this time --> likely to continue chemo and XRT as needed with Dr. Elias Bernal (has received one chemo session) --> CA 19.9 688, in general with this presentation, poor prognosis --> if doesn't get chemo soon, likely to deteriorate, may be hospice candidate --> DW Dr. Shyann Bernal on 02/03/19 # Portal vein thrombosis with abd pain (MAY BE due to tumor encasement) --> may be contributor for abdominal pain --> appears to be chronic portal vein thrombosis on imaging --> minimize pain meds as much as possible --> started on lovenox, okay to transition to noac once discharged # Thrombocytosis, is secondary to underlying process --> currently improved --> less likely myeloproliferative --> smear has been reviewed --> trend 700-->800-->920-->1040k-->997-->304 --> consider asa if worsens, doesn't need leukapheresis # Anemia of myelosuppressive chemo --> okay to continue on chemo at this time --> epo as stimulating factor if drops --> dw patient risks of dvt/VTE # Leukocytosis is likely due to pna --> agree to trend, improved --> abx as per id --> wbc trend 22-->20-->18k-->34k-->22-->19k-->21k-->20-->16.3 -->20 --> ceftriaxone # Transaminitis --> Trend LFTs --> per gi --> advance diet as tolerated # Dvt ppx LOVENOX 1mg/sq bid Appreciate consultation and dw RN Subjective Constitutional: Denies: no symptoms, chills, fever, malaise, weakness, other HEENT: Denies: no symptoms, eye pain, blurred vision, tearing, double vision, ear pain, ear discharge, nose pain, nose congestion, throat pain, throat swelling, mouth pain, mouth swelling, other Cardiovascular: Denies: no symptoms, chest pain, edema, irregular heart rate, lightheadedness, palpitations, syncope, other Respiratory: Denies: no symptoms, cough, shortness of breath, SOB with excertion, SOB at rest, sputum, wheezing, other Gastrointestinal/Abdominal: Denies: no symptoms, abdomen distended, abdominal pain, black stools, tarry stools, blood in stool, constipated, diarrhea, difficulty swallowing, nausea, poor appetite, poor fluid intake, rectal bleeding , vomiting, other Genitourinary: Denies: no symptoms, burning, discharge, frequency, flank pain, hematuria, incontinence, pain, urgency, other Neurologic/Psychiatric: Denies: no symptoms, anxiety, depressed, emotional problems, headache, numbness, paresthesia, pre-existing deficit, seizure, tingling, tremors, weakness, other Allergies: Coded Allergies: No Known Allergies (Unverified , 01/12/19) Subjective 01/13: no events to report, no f/c, no night sweats 01/14: no bleeding, on meds, ivf 01/15: no major changes, dw patient, some minor abd pain 01/18: no major events, drain is to gravity, seen by surg, no bleeidng 01/19: awake, alert, getting dressed this am, labs noted 01/20: no events, no bleeding reported, no major changes, no fc 01/21: appears on ct scan that she has a chronic portal vein thrombosis, reviewed results with rad 01/23: to be transferred to tele for sob, and also okay with snf placement 01/24: no major changes, no bleeding reported, no f/c 01/25: no events, no complaints in the am, sleeping, no chills 01/26: no bleeding noted, no f/c, no night sweats 02/03: awake and alert, wbc 16, on ceftriaxone, h/h stable 02/04: no events, no bleeding, labs noted, feeling tired this am 02/05: no bleeding no fevers or chills, no night sweats Objective Objective Current Medications Medications (Trade) Dose Ordered Sig/Zuleima Route PRN Reason Start Time Stop Time Status Last Admin Dose Admin Acetaminophen (Tylenol) 650 mg Q8H PRN ORAL Mild Pain/Temp > 100.5 01/12/19 17:30 02/11/19 17:29 02/03/19 10:16 Bisacodyl (Dulcolax) 10 mg BIDPRN PRN RECTAL Constipation 01/16/19 07:45 02/15/19 07:44 01/19/19 18:34 Ceftriaxone Sodium 1 gm/ Dextrose 55 ml @ 110 mls/hr Q24H IVPB 01/30/19 22:00 02/10/19 21:59 02/04/19 21:54 Dextrose (Dextrose 50%) 25 ml Q30M PRN IV Hypoglycemia 01/12/19 13:45 02/11/19 13:44 Dextrose (Dextrose 50%) 50 ml Q30M PRN IV Hypoglycemia 01/12/19 13:45 02/11/19 13:44 Enoxaparin Sodium (Lovenox) 60 mg Q12HR@0600,1800 SUBQ 01/20/19 18:00 02/19/19 17:59 02/05/19 05:49 Fentanyl (Duragesic) 1 patch Q72H TDERMAL 01/25/19 12:00 02/08/19 11:59 02/03/19 12:33 Gabapentin (Neurontin) 300 mg THREE TIMES A DAY ORAL 01/19/19 18:00 02/18/19 17:59 02/05/19 13:48 Hydromorphone HCl (Dilaudid) 4 mg Q4H PRN ORAL Severe Breakthru Pain (>7) 01/31/19 10:54 02/07/19 10:53 02/05/19 14:55 Methylnaltrexone [place] (Relistor) 12 mg ONCE A WEEK SUBQ 02/01/19 09:00 03/03/19 08:59 Metronidazole 100 ml @ 100 mls/hr Q8HR IVPB 01/30/19 15:30 02/10/19 15:29 02/05/19 13:48 Miscellaneous Medication (fentaNYL Destruction) 1 ea Q72H MISC 01/25/19 11:59 02/24/19 11:58 02/03/19 12:29 Naloxone HCl (Narcan) 0.1 mg Q5M PRN IV Sedation scale 3 or 4 01/24/19 09:00 02/23/19 08:54 Ondansetron HCl (Zofran) 4 mg Q6H PRN IVP Nausea & Vomiting 01/12/19 13:45 02/11/19 13:44 01/26/19 08:08 Pantoprazole (Protonix) 40 mg EVERY 12 HOURS ORAL 01/27/19 21:00 02/26/19 20:59 02/05/19 08:26 Polyethylene Glycol (Miralax) 17 gm BEDTIME PRN ORAL constipation 01/22/19 10:30 02/15/19 20:59 Potassium Chloride (K-Dur) 40 meq TWICE A DAY ORAL 01/27/19 10:00 02/26/19 09:59 02/05/19 08:27 Simethicone (Mylicon) 80 mg BIDPRN PRN ORAL gas 01/18/19 21:45 02/17/19 21:44 01/21/19 14:38 Vitamin D (Vitamin D) 800 intlu DAILY ORAL 02/05/19 16:00 03/07/19 15:59 Zolpidem Tartrate (Ambien) 5 mg HSPRN PRN ORAL Insomnia 02/03/19 21:15 02/10/19 21:14 02/05/19 00:27 Last 24 Hour Vital Signs Date Time Temp Pulse Resp B/P (MAP) Pulse Ox O2 Delivery O2 Flow Rate FiO2 02/05/19 12:00 96.6 98 18 118/72 (87) 98 02/05/19 08:00 98.2 94 18 105/66 (79) 97 02/05/19 07:07 97.7 02/05/19 04:00 97.7 91 20 106/59 (75) 96 02/05/19 00:00 99.0 81 18 111/69 (83) 94 02/04/19 21:00 Room Air 02/04/19 20:00 97.9 82 18 108/67 (81) 96 02/04/19 16:00 98.1 82 18 103/60 (74) 98 02/04/19 12:00 97.0 83 16 99/69 (79) 98 02/04/19 09:00 Room Air 02/04/19 08:00 97.0 83 18 115/69 (84) 95 02/04/19 04:00 97.3 82 18 114/71 (85) 98 02/04/19 00:00 98.0 78 16 118/74 (89) 99 02/03/19 21:00 Room Air 02/03/19 20:00 97.9 80 17 108/69 (82) 97 02/03/19 16:00 98.3 82 18 114/71 (85) 98 Intake and Output 02/04/19 02/05/19 19:00 07:00 Intake Total 380 ml Output Total 750 ml Balance 380 ml -750 ml Intake Oral 380 ml Other 750 ml # Voids 7 # Bowel Movements 5 1 Labs Test 02/03/19 06:43 02/04/19 05:45 02/05/19 06:30 White Blood Count 16.3 K/UL (4.8-10.8) 19.9 K/UL (4.8-10.8) 16.3 K/UL (4.8-10.8) Red Blood Count 3.05 M/UL (4.20-5.40) 3.12 M/UL (4.20-5.40) 3.09 M/UL (4.20-5.40) Hemoglobin 9.5 G/DL (12.0-16.0) 9.9 G/DL (12.0-16.0) 9.7 G/DL (12.0-16.0) Hematocrit 28.4 % (37.0-47.0) 29.6 % (37.0-47.0) 29.0 % (37.0-47.0) Mean Corpuscular Volume 93 FL (80-99) 95 FL (80-99) 94 FL (80-99) Mean Corpuscular Hemoglobin 31.3 PG (27.0-31.0) 31.6 PG (27.0-31.0) 31.3 PG (27.0-31.0) Mean Corpuscular Hemoglobin Concent 33.5 G/DL (32.0-36.0) 33.3 G/DL (32.0-36.0) 33.3 G/DL (32.0-36.0) Red Cell Distribution Width 14.9 % (11.6-14.8) 14.9 % (11.6-14.8) 15.1 % (11.6-14.8) Platelet Count 304 K/UL (150-450) 354 K/UL (150-450) 395 K/UL (150-450) Mean Platelet Volume 6.3 FL (6.5-10.1) 6.4 FL (6.5-10.1) 6.0 FL (6.5-10.1) Neutrophils (%) (Auto) 79.9 % (45.0-75.0) % (45.0-75.0) 78.8 % (45.0-75.0) Lymphocytes (%) (Auto) 6.8 % (20.0-45.0) % (20.0-45.0) 9.5 % (20.0-45.0) Monocytes (%) (Auto) 11.5 % (1.0-10.0) % (1.0-10.0) 10.2 % (1.0-10.0) Eosinophils (%) (Auto) 0.9 % (0.0-3.0) % (0.0-3.0) 0.7 % (0.0-3.0) Basophils (%) (Auto) 0.9 % (0.0-2.0) % (0.0-2.0) 0.9 % (0.0-2.0) Sodium Level 137 MMOL/L (136-145) 139 MMOL/L (136-145) 139 MMOL/L (136-145) Potassium Level 3.6 MMOL/L (3.5-5.1) 4.2 MMOL/L (3.5-5.1) 3.6 MMOL/L (3.5-5.1) Chloride Level 106 MMOL/L (98-107) 106 MMOL/L (98-107) 105 MMOL/L (98-107) Carbon Dioxide Level 23 MMOL/L (21-32) 26 MMOL/L (21-32) 25 MMOL/L (21-32) Anion Gap 8 mmol/L (5-15) 7 mmol/L (5-15) 9 mmol/L (5-15) Blood Urea Nitrogen 9 mg/dL (7-18) 8 mg/dL (7-18) 6 mg/dL (7-18) Creatinine 0.9 MG/DL (0.55-1.30) 0.9 MG/DL (0.55-1.30) 1.0 MG/DL (0.55-1.30) Estimat Glomerular Filtration Rate > 60 mL/min (>60) > 60 mL/min (>60) 56.2 mL/min (>60) Glucose Level 101 MG/DL (74-106) 119 MG/DL (74-106) 89 MG/DL (74-106) Calcium Level 7.4 MG/DL (8.5-10.1) 7.5 MG/DL (8.5-10.1) 7.3 MG/DL (8.5-10.1) Differential Total Cells Counted 100 Neutrophils % (Manual) 89 % (45-75) Lymphocytes % (Manual) 7 % (20-45) Monocytes % (Manual) 2 % (1-10) Eosinophils % (Manual) 0 % (0-3) Basophils % (Manual) 2 % (0-2) Band Neutrophils 0 % (0-8) Platelet Estimate Adequate Platelet Morphology Normal Height (Feet): 5 Height (Inches): 3.00 Weight (Pounds): 133 Objective Gen: nad Pulm: Ctab Cardiovascular: RSR Abdomen: soft, flat, non-tender, present bowel sounds ext-int drain Extremities: no edema, no tenderness, no cyanosis Roberto Davidson MD Feb 05, 2019 15:09
[2019-02-05 16:00] VITALS: BP 119/76
[2019-02-05] MEDS ORDERED: Vitamin D 400 INTLU TAB ORAL SCH (16:00)
--- NOTE | 2019-02-05 16:18 | NUR ---
NURSE NOTES: Dr. Gates DC'ed his vitamin D order. RN will take pt's own Vitamin D2 medication down to the pharmacy to dispense.
--- NOTE | 2019-02-05 16:41 | NUR ---
SENIOR BUSINESS DEVELOPMENT MANAGER: REVIEW SI: ABDOMINAL PAIN . ABDOMINAL FLUID COLLECTION . PANCREATIC CA ASPIRATION OF HEPATIC SUBCAPSULAR COLLECTION 01/27 ABD DRAIN PLACEMENT 02/01 T 96.6 HR 98 RR 18 BP 106/59 SAT 96% ROOM AIR WBC 16.3 H/H 9.7/29.0 IS: CEFTRIAXONE IV Q24HR FLAGYL IV Q8HR FENTANYL PATCH Q72HR LOVENOX SUBQ Q12HR MED/SURG STATUS DCP: PATIENT IS FROM HOME
[2019-02-05] MEDS ORDERED: Vitamin D 50,000 units cap ORAL SCH (18:00)
--- NOTE | 2019-02-05 19:51 | NUR ---
HAND-OFF: Report given to CAITIE Perla.
[2019-02-05 20:00] VITALS: BP 106/51
--- NOTE | 2019-02-05 20:18 | NUR ---
NURSE NOTES: Pt received in bed awake, alert, able to make needs known, call light within reach, no c/o pain at the moment, will continue to monitor, and empty drainage bags.
[2019-02-05] MEDS: cefTRIAXone 1gm/D5W 55ml IVPB SCH ×2 (21:36)
[2019-02-06] VITALS: BP 125/62
[2019-02-06 04:00] VITALS: BP 106/74
[2019-02-06] MEDS: HYDROmorphone 4mg tab ORAL PRN ×5 (04:15→21:45)
[2019-02-06] MEDS: Enoxaparin 60mg Inj SUBQ SCH ×2 (05:01→17:20)
[2019-02-06] MEDS: metroNIDAZOLE 500mg Premix IVPB SCH ×3 (05:01→22:02)
[2019-02-06 06:35] LABS: BASOPHILS % (AUTO) 1.3 % (0.0-2.0); HEMATOCRIT 27.2 % (37.0-47.0); HEMOGLOBIN 9.1 G/DL (12.0-16.0); LYMPHOCYTES % (AUTO) 7.5 % (20.0-45.0); MEAN CORPUSCULAR VOLUME 94 FL (80-99); MONOCYTES % (AUTO) 9.4 % (1.0-10.0); NEUTROPHILS % (AUTO) 80.7 % (45.0-75.0); PLATELET COUNT 401 K/UL (150-450); RED BLOOD COUNT 2.89 M/UL (4.20-5.40); RED CELL DISTRIBUTION WIDTH 15.4 % (11.6-14.8); WHITE BLOOD COUNT 16.5 K/UL (4.8-10.8)
--- NOTE | 2019-02-06 07:05 | NUR ---
HAND-OFF: Report given to CAITIE Roth.
[2019-02-06 07:06] LABS: ANION GAP 3 mmol/L (5-15); BLOOD UREA NITROGEN 6 mg/dL (7-18); CALCIUM 7.2 MG/DL (8.5-10.1); CARBON DIOXIDE 28 MMOL/L (21-32); CHLORIDE 101 MMOL/L (98-107); CREATININE 0.9 MG/DL (0.55-1.30); POTASSIUM 3.3 MMOL/L (3.5-5.1); SODIUM 132 MMOL/L (136-145)
--- NOTE | 2019-02-06 07:25 | NUR ---
NURSE NOTES: Pt received in a chair, awake, alert, oriented x4. verbally responsive. call light within reach, assistance needed in ADL's, c/o pain on lower back 10/30. pain med not due now but it will be administered as ordered. food intake is good. NO n/v noted. skin is intact. IV access patent and intact. biliary drains are intact and drain well. no evidence of leakage. will continue to monitor.
[2019-02-06 08:00] VITALS: BP 119/77
--- NOTE | 2019-02-06 08:41 | General Progress Note ---
Assessment/Plan Problem List: (1) SOB (shortness of breath) ICD Codes: R06.02 - Shortness of breath SNOMED: 850607612 (2) Nausea & vomiting ICD Codes: R11.2 - Nausea with vomiting, unspecified SNOMED: 81090737 (3) Malnutrition ICD Codes: E46 - Unspecified protein-calorie malnutrition SNOMED: 43039990 (4) UTI (urinary tract infection) ICD Codes: N39.0 - Urinary tract infection, site not specified SNOMED: 53004669 (5) Abdominal pain ICD Codes: R10.9 - Unspecified abdominal pain SNOMED: 18014823 (6) Biliary drain displacement ICD Codes: T85.520A - Displacement of bile duct prosthesis, initial encounter SNOMED: 002578522 (7) Pancreatic cancer ICD Codes: C25.9 - Malignant neoplasm of pancreas, unspecified SNOMED: 389108898 Status: unchanged Assessment/Plan: pt diet pain control abx cbc bmp am dc plan snf Subjective Constitutional: Reports: weakness Allergies: Coded Allergies: No Known Allergies (Unverified , 01/12/19) All Systems: reviewed and negative except above Subjective calm sleepy Objective Last 24 Hour Vital Signs Date Time Temp Pulse Resp B/P (MAP) Pulse Ox O2 Delivery O2 Flow Rate FiO2 02/06/19 04:00 98.2 81 19 106/74 (85) 97 02/06/19 00:00 97.5 80 19 125/62 (83) 96 02/05/19 21:00 Room Air 02/05/19 20:00 98.1 85 19 106/51 (69) 96 02/05/19 16:00 98.2 84 16 119/76 (90) 95 02/05/19 12:00 96.6 98 18 118/72 (87) 98 02/05/19 09:00 Room Air Intake and Output 02/05/19 02/06/19 19:00 07:00 Intake Total 1600 ml 810 ml Output Total 800 ml 375 ml Balance 800 ml 435 ml Intake Oral 1600 ml 600 ml IV Total 210 ml Other 800 ml 375 ml # Voids 4 # Bowel Movements 3 Laboratory Tests 02/06/19 05:45: White Blood Count 16.5H, Red Blood Count 2.89L, Hemoglobin 9.1L, Hematocrit 27.2L, Mean Corpuscular Volume 94, Mean Corpuscular Hemoglobin 31.4H, Mean Corpuscular Hemoglobin Concent 33.3, Red Cell Distribution Width 15.4H, Platelet Count 401, Mean Platelet Volume 5.9L, Neutrophils (%) (Auto) 80.7H, Lymphocytes (%) (Auto) 7.5L, Monocytes (%) (Auto) 9.4, Eosinophils (%) (Auto) 1.0, Basophils (%) (Auto) 1.3, Sodium Level 132L, Potassium Level 3.3L, Chloride Level 101, Carbon Dioxide Level 28, Anion Gap 3L, Blood Urea Nitrogen 6L, Creatinine 0.9, Estimat Glomerular Filtration Rate > 60, Glucose Level 99, Calcium Level 7.2L Height (Feet): 5 Height (Inches): 3.00 Weight (Pounds): 133 General Appearance: lethargic EENT: normal ENT inspection Neck: normal alignment Cardiovascular: normal peripheral pulses, normal rate, regular rhythm Respiratory/Chest: chest wall non-tender, lungs clear, normal breath sounds Abdomen: normal bowel sounds, non tender, soft Extremities: normal inspection Edema: no edema noted Arm (L), no edema noted Arm (R), no edema noted Leg (L), no edema noted Leg (R), no edema noted Pedal (L), no edema noted Pedal (R), no edema noted Generalized Neurologic: motor weakness Skin: normal pigmentation, warm/dry Elvis Luke DO Feb 06, 2019 08:41
--- NOTE | 2019-02-06 10:35 | Nephrology Progress Note ---
Assessment/Plan Problem List: (1) Electrolyte abnormality (2) Pancreatic cancer (3) Biliary drain displacement (4) Abdominal pain (5) Malnutrition Assessment HypoKalemia HypoNatremia Abdominal pain. Nausea. Vomiting. UTI. Pancreatic cancer. Biliary drain displacement Malnutrition. 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 Subjective ROS Limited/Unobtainable: No Objective Objective Last 24 Hour Vital Signs Date Time Temp Pulse Resp B/P (MAP) Pulse Ox O2 Delivery O2 Flow Rate FiO2 02/06/19 08:56 98.2 02/06/19 08:00 97.1 87 16 119/77 (91) 95 02/06/19 04:00 98.2 81 19 106/74 (85) 97 02/06/19 00:00 97.5 80 19 125/62 (83) 96 02/05/19 21:00 Room Air 02/05/19 20:00 98.1 85 19 106/51 (69) 96 02/05/19 16:00 98.2 84 16 119/76 (90) 95 02/05/19 12:00 96.6 98 18 118/72 (87) 98 Intake and Output 02/05/19 02/06/19 19:00 07:00 Intake Total 1600 ml 810 ml Output Total 800 ml 375 ml Balance 800 ml 435 ml Intake Oral 1600 ml 600 ml IV Total 210 ml Other 800 ml 375 ml # Voids 4 # Bowel Movements 3 Laboratory Tests 02/06/19 05:45: White Blood Count 16.5H, Red Blood Count 2.89L, Hemoglobin 9.1L, Hematocrit 27.2L, Mean Corpuscular Volume 94, Mean Corpuscular Hemoglobin 31.4H, Mean Corpuscular Hemoglobin Concent 33.3, Red Cell Distribution Width 15.4H, Platelet Count 401, Mean Platelet Volume 5.9L, Neutrophils (%) (Auto) 80.7H, Lymphocytes (%) (Auto) 7.5L, Monocytes (%) (Auto) 9.4, Eosinophils (%) (Auto) 1.0, Basophils (%) (Auto) 1.3, Sodium Level 132L, Potassium Level 3.3L, Chloride Level 101, Carbon Dioxide Level 28, Anion Gap 3L, Blood Urea Nitrogen 6L, Creatinine 0.9, Estimat Glomerular Filtration Rate > 60, Glucose Level 99, Calcium Level 7.2L Height (Feet): 5 Height (Inches): 3.00 Weight (Pounds): 133 General Appearance: no apparent distress Objective no change Kapil Turcios MD Feb 06, 2019 10:35
[2019-02-06] MEDS: Simethicone 80mg tab ORAL PRN (10:44)
--- NOTE | 2019-02-06 10:44 | NUR ---
NURSE NOTES: Dr Turcios made aware of the K+ 3.3. KCL 40 meq po administered. will cont to monitor.
--- NOTE | 2019-02-06 10:57 | Surgery Progress Note ---
Surgery Progress Note Subjective Additional Comments no acute events doing well labs noted exam stable drains okay Objective Last 24 Hour Vital Signs Date Time Temp Pulse Resp B/P (MAP) Pulse Ox O2 Delivery O2 Flow Rate FiO2 02/06/19 08:56 98.2 02/06/19 08:00 97.1 87 16 119/77 (91) 95 02/06/19 04:00 98.2 81 19 106/74 (85) 97 02/06/19 00:00 97.5 80 19 125/62 (83) 96 02/05/19 21:00 Room Air 02/05/19 20:00 98.1 85 19 106/51 (69) 96 02/05/19 16:00 98.2 84 16 119/76 (90) 95 02/05/19 12:00 96.6 98 18 118/72 (87) 98 I&O Intake and Output 02/05/19 02/06/19 18:59 06:59 Intake Total 1600 ml 810 ml Output Total 800 ml 375 ml Balance 800 ml 435 ml Intake Oral 1600 ml 600 ml IV Total 210 ml Other 800 ml 375 ml # Voids 4 # Bowel Movements 3 Dressing: dry Wound: clean Drains: other Cardiovascular: RSR Respiratory: clear Abdomen: soft, flat, non-tender, present bowel sounds Extremities: no edema, no tenderness, no cyanosis Laboratory Tests Test 02/06/19 05:45 White Blood Count 16.5 K/UL (4.8-10.8) H Red Blood Count 2.89 M/UL (4.20-5.40) L Hemoglobin 9.1 G/DL (12.0-16.0) L Hematocrit 27.2 % (37.0-47.0) L Mean Corpuscular Volume 94 FL (80-99) Mean Corpuscular Hemoglobin 31.4 PG (27.0-31.0) H Mean Corpuscular Hemoglobin Concent 33.3 G/DL (32.0-36.0) Red Cell Distribution Width 15.4 % (11.6-14.8) H Platelet Count 401 K/UL (150-450) Mean Platelet Volume 5.9 FL (6.5-10.1) L Neutrophils (%) (Auto) 80.7 % (45.0-75.0) H Lymphocytes (%) (Auto) 7.5 % (20.0-45.0) L Monocytes (%) (Auto) 9.4 % (1.0-10.0) Eosinophils (%) (Auto) 1.0 % (0.0-3.0) Basophils (%) (Auto) 1.3 % (0.0-2.0) Sodium Level 132 MMOL/L (136-145) L Potassium Level 3.3 MMOL/L (3.5-5.1) L Chloride Level 101 MMOL/L (98-107) Carbon Dioxide Level 28 MMOL/L (21-32) Anion Gap 3 mmol/L (5-15) L Blood Urea Nitrogen 6 mg/dL (7-18) L Creatinine 0.9 MG/DL (0.55-1.30) Estimat Glomerular Filtration Rate > 60 mL/min (>60) Glucose Level 99 MG/DL (74-106) Calcium Level 7.2 MG/DL (8.5-10.1) L Plan Problems: (1) Abdominal pain Assessment & Plan: 63-year-old female patient with history of recently diagnosed pancreatic cancer in November 2018 presented to the emergency room at [facility] [place] with complaint of abdominal pain for approximately 1 hour. Patient is status post a biliary drain placement at [facility] approximately 1 week ago. She reported that she had a first treatment of chemotherapy this past Thursday. The patient denied any nausea vomiting, denies any constipation or diarrhea. She states her pain medication was unable to relieve her pain. no fever or chills. labs as below. C Tnoted. surgery called to assist with care and management. tube checked Impression: Diffusely abnormal bowel uptake. Given findings on recent CT scan, this most likely represents enteritis, most likely infectious. Abnormal uptake in the face or upper neck to the left of midline, exact location uncertain. Consider neck CT for better characterization Mildly prominent pulmonary uptake, significance doubted okay for diet tube to drain IV abx d/c planning for SNF f/u with pcp / onc outpatient stable otherwise from surgical standpoint no acute surgical intervention planned Probably has extensive tumor burden given interventions and findings noted. No surgical recommendation at this time. Possible that fluid collection in case in the abdomen infected but to operate on this would be ill advised at this time and patient's current condition. Continue with antibiotics iv fluids trend labs will monitor and follow with exam thank you (2) Biliary drain displacement Assessment & Plan: Daughter was able to inform me with a lot of history. Seems patient unresectable initially and attempted biliary drain placed endoscopically but unsuccessful. A external biliary drain was placed by radiology. Would patient was getting her Port-A-Cath placed a another radiologist felt he could place a internal/external biliary drain and he was able to successfully place a internal/external biliary drain. Had the trade Since. Fell off and she has been without it to drainage recently. In evaluating the trade she has some bilious output from the drain and on imaging drain looks to be appropriately placed. Labs reviewed stable. drain placed to gravity as leaking Drain putting out a ton since placed on 2 bag IMPRESSION: 1. Appropriately positioned percutaneous left biliary drain with mild intrahepatic biliary ductal dilatation. 2. Ill-defined pancreatic head/proximal body mass, likely corresponding to stated history of pancreatic neoplasm. Please note evaluation of size and vascular involvement of pancreatic masses is incomplete prior examinations and without multiphasic pancreatic protocol. 3. 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 SMV confluence is not visualized. 4. Color wall thickening with pericholecystic fluid; in the absence of distended gallbladder, these findings are critical for acute pancreatitis and clinical correlation is recommended. Transhepatic biliary drain noted. 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 Abnormal liver with area of peripheral hypoechogenicity along the posterior right lobe margin. Suggest further evaluation with contrast CT. Obscured pancreas and aorta due to bowel gas. . Interval development of moderate small bowel dilatation. Transition to relatively decompressed terminal ileum demonstrated indicating this is probably a mechanical bowel obstruction. Pneumatosis suspected within one of the proximal small bowel segments in the upper abdomen. No evidence of perforation. Development of multiloculated ascites with prominent collections contiguous with the caudal end of the right lobe of the liver capsule, Morison's pouch and inferior to the right kidney. Other generalized mild ascites noted as well. Internal/external transhepatic biliary drainage catheter in good position. No imaging evidence for catheter malfunction or biliary obstruction. CT noted. likely internal leakage from internal external drain as it was noted to be backing put few days ago hence placed on drainage bag recommend outpatient f/u with oncology and her GI at primary facility to discuss placement of internal metallic larger drain and remove internal / external drain s/p abd drain placement micro noted labs improved on abx s/p new drain 02/01/19 / d/c to SNF. f/u with outpatient onc f/u with outpatient GI for consideration of metallic biliary drain now that she has internal external thank you (3) Pancreatic cancer Assessment & Plan: Pancreatic cancer, non-resectable, based on patient's info. Had a Abdominal pelvis CT reviewed 1. Appropriately positioned percutaneous left biliary drain with mild intrahepatic biliary ductal dilatation. 2. Ill- defined pancreatic head/proximal body mass, likely corresponding to stated history of pancreatic neoplasm. Please note evaluation of size and vascular involvement of pancreatic masses is incomplete prior examinations and without multiphasic pancreatic protocol. 3. 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 She has already started rx Jim Gates Feb 06, 2019 10:57
[2019-02-06] MEDS: fentaNYL Destruction MISC SCH (11:59)
[2019-02-06 12:04] VITALS: BP 132/75
--- NOTE | 2019-02-06 12:53 | General Progress Note ---
Assessment/Plan Assessment/Plan: (1) Intractable abdominal pain (2) Pancreatic cancer We will continue the Neurontin, Dilaudid and Fentanyl patch D/w Dr. Gonzales and he concurred. Subjective Date patient seen: Feb 06, 2019 Time patient seen: 11:30 - am Allergies: Coded Allergies: No Known Allergies (Unverified , 01/12/19) Subjective REVIEW OF SYSTEMS: Denies rash, fever, chills, sweating, dizziness, drowsiness, blurred vision, sore throat, change in weight. No shortness of breath or chest pain. No bowel or bladder incontinence. She is complaining of abdominal pain. SUBJECTIVE: Patient shows no signs of pain or distress. The pain has been at a moderate level using 6 doses of Dilaudid in the last 24hrs with the Fentanyl patch. She has no new complaints at this time. Objective Last 24 Hour Vital Signs Date Time Temp Pulse Resp B/P (MAP) Pulse Ox O2 Delivery O2 Flow Rate FiO2 02/06/19 12:04 96.9 88 16 132/75 (94) 96 02/06/19 09:00 Room Air 02/06/19 08:56 98.2 02/06/19 08:00 97.1 87 16 119/77 (91) 95 02/06/19 04:00 98.2 81 19 106/74 (85) 97 02/06/19 00:00 97.5 80 19 125/62 (83) 96 02/05/19 21:00 Room Air 02/05/19 20:00 98.1 85 19 106/51 (69) 96 02/05/19 16:00 98.2 84 16 119/76 (90) 95 Intake and Output 02/05/19 02/06/19 18:59 06:59 Intake Total 1600 ml 810 ml Output Total 800 ml 375 ml Balance 800 ml 435 ml Intake Oral 1600 ml 600 ml IV Total 210 ml Other 800 ml 375 ml # Voids 4 # Bowel Movements 3 Laboratory Tests 02/06/19 05:45: White Blood Count 16.5H, Red Blood Count 2.89L, Hemoglobin 9.1L, Hematocrit 27.2L, Mean Corpuscular Volume 94, Mean Corpuscular Hemoglobin 31.4H, Mean Corpuscular Hemoglobin Concent 33.3, Red Cell Distribution Width 15.4H, Platelet Count 401, Mean Platelet Volume 5.9L, Neutrophils (%) (Auto) 80.7H, Lymphocytes (%) (Auto) 7.5L, Monocytes (%) (Auto) 9.4, Eosinophils (%) (Auto) 1.0, Basophils (%) (Auto) 1.3, Sodium Level 132L, Potassium Level 3.3L, Chloride Level 101, Carbon Dioxide Level 28, Anion Gap 3L, Blood Urea Nitrogen 6L, Creatinine 0.9, Estimat Glomerular Filtration Rate > 60, Glucose Level 99, Calcium Level 7.2L Height (Feet): 5 Height (Inches): 3.00 Weight (Pounds): 133 Objective GENERAL: Alert, awake, and oriented. LUNGS: Clear bilaterally. HEART: S1, S2 regular. ABDOMEN: Tenderness to palpation with biliary stent noted. BACK: Range of motion is decreased in flexion, extension. EXTREMITIES: No cyanosis. No clubbing. No edema. NEURO: No changes. Doug Reid Feb 06, 2019 12:53
--- NOTE | 2019-02-06 15:20 | NUR ---
NURSE NOTES: received report from DONAL Roth. patient in bed. alert. oriented. verbally responsive. no respiratory distress noted.no c/o pain at this time. biliary Drainage on lt and rt draining. IV on LFA24g intact. ADRIAN sanford cath for parisa. bed in the lowest position. call light within reach. will continue to provide plan of care.
--- NOTE | 2019-02-06 15:28 | NUR ---
HAND-OFF: Report given to
[2019-02-06 16:00] VITALS: BP 112/71
--- NOTE | 2019-02-06 19:30 | NUR ---
HAND-OFF: Report given to CAITIE Bertrand.
[2019-02-06 20:00] VITALS: BP 123/80
--- NOTE | 2019-02-06 20:29 | NUR ---
NURSE NOTES: Received pt in bed. Pt AAO x 4, on room air. Biliary drainage bags intact and draining by gravity. no acute distress noted at this time. Commode and walker at bedside. call light within reach. bed is the lowest position. Will continue to provide plan of care.
[2019-02-06] MEDS: cefTRIAXone 1gm/D5W 55ml IVPB SCH ×2 (21:05)
--- NOTE | 2019-02-06 22:32 | NUR ---
NURSE NOTES: pt reported on right upper aim lump and bruise present d/t previous RN attempted to administrate subq medication.
[2019-02-07] VITALS: BP 129/72
[2019-02-07] MEDS: Zolpidem 5mg tab ORAL PRN (03:28)
[2019-02-07] MEDS: HYDROmorphone 4mg tab ORAL PRN ×2 (04:38→10:01)
[2019-02-07] MEDS: Enoxaparin 60mg Inj SUBQ SCH ×2 (05:22→17:09)
[2019-02-07] MEDS: metroNIDAZOLE 500mg Premix IVPB SCH ×3 (05:23→23:35)
[2019-02-07 07:17] LABS: BASOPHILS % (AUTO) 1.4 % (0.0-2.0); EOSINOPHILS % (AUTO) 1.7 % (0.0-3.0); HEMATOCRIT 26.7 % (37.0-47.0); HEMOGLOBIN 9.3 G/DL (12.0-16.0); LYMPHOCYTES % (AUTO) 8.3 % (20.0-45.0); MEAN CORPUSCULAR VOLUME 91 FL (80-99); MONOCYTES % (AUTO) 10.2 % (1.0-10.0); NEUTROPHILS % (AUTO) 78.4 % (45.0-75.0); PLATELET COUNT 421 K/UL (150-450); RED BLOOD COUNT 2.95 M/UL (4.20-5.40); RED CELL DISTRIBUTION WIDTH 14.2 % (11.6-14.8); WHITE BLOOD COUNT 13.5 K/UL (4.8-10.8)
[2019-02-07 07:18] LABS: ANION GAP 8 mmol/L (5-15); BLOOD UREA NITROGEN 6 mg/dL (7-18); CALCIUM 7.2 MG/DL (8.5-10.1); CARBON DIOXIDE 25 MMOL/L (21-32); CHLORIDE 106 MMOL/L (98-107); CREATININE 0.9 MG/DL (0.55-1.30); POTASSIUM 3.6 MMOL/L (3.5-5.1); SODIUM 139 MMOL/L (136-145)
--- NOTE | 2019-02-07 07:30 | NUR ---
NURSE NOTES: Received patient on bed awake. No SOB or cardiac distress. IV line intact and patent. Biliary drain on left abdomen intact, draining greenish fluid, bag kept on negative pressure. Abdominal drain on right side intact, with bloody residue in bag. HOB elevated. Bed locked in lowest position. Call light within reach. Will continue plan of care.
[2019-02-07 08:00] VITALS: BP 105/72
--- NOTE | 2019-02-07 08:31 | General Progress Note ---
Assessment/Plan Assessment/Plan: (1) Intractable abdominal pain (2) Pancreatic cancer We will continue the Neurontin, Dilaudid and Fentanyl patch D/w Dr. Gonzales and he concurred. Subjective Date patient seen: Feb 07, 2019 Time patient seen: 07:45 - am Allergies: Coded Allergies: No Known Allergies (Unverified , 01/12/19) Subjective REVIEW OF SYSTEMS: Denies rash, fever, chills, sweating, dizziness, drowsiness, blurred vision, sore throat, change in weight. No shortness of breath or chest pain. No bowel or bladder incontinence. She is complaining of abdominal pain. SUBJECTIVE: Patient is in chair no signs of pain or distress. Pain has been well tolerated on the Fentanyl patch and Dilaudid. No new complaints at this time. Objective Last 24 Hour Vital Signs Date Time Temp Pulse Resp B/P (MAP) Pulse Ox O2 Delivery O2 Flow Rate FiO2 02/07/19 08:00 97.0 99 18 105/72 (83) 93 02/07/19 00:00 97.6 80 20 129/72 (91) 97 02/06/19 20:36 Room Air 02/06/19 20:00 96.5 69 21 123/80 (94) 02/06/19 16:00 98.1 83 19 112/71 (85) 98 02/06/19 13:13 96.9 02/06/19 13:13 96.9 02/06/19 12:04 96.9 88 16 132/75 (94) 96 02/06/19 09:00 Room Air Intake and Output 02/06/19 02/07/19 19:00 07:00 Intake Total 580 ml 755 ml Output Total 370 ml 450 ml Balance 210 ml 305 ml Intake Oral 580 ml 600 ml IV Total 155 ml Output Urine Total 5 ml Other 365 ml 450 ml # Voids 3 2 # Bowel Movements 5 2 Laboratory Tests 02/07/19 05:30: White Blood Count 13.5H, Red Blood Count 2.95L, Hemoglobin 9.3L, Hematocrit 26.7L, Mean Corpuscular Volume 91, Mean Corpuscular Hemoglobin 31.5H, Mean Corpuscular Hemoglobin Concent 34.8, Red Cell Distribution Width 14.2, Platelet Count 421, Mean Platelet Volume 5.7L, Neutrophils (%) (Auto) 78.4H, Lymphocytes (%) (Auto) 8.3L, Monocytes (%) (Auto) 10.2H, Eosinophils (%) (Auto) 1.7, Basophils (%) (Auto) 1.4, Sodium Level 139, Potassium Level 3.6, Chloride Level 106, Carbon Dioxide Level 25, Anion Gap 8, Blood Urea Nitrogen 6L, Creatinine 0.9, Estimat Glomerular Filtration Rate > 60, Glucose Level 88, Calcium Level 7.2L Height (Feet): 5 Height (Inches): 3.00 Weight (Pounds): 133 Objective GENERAL: Alert, awake, and oriented. LUNGS: Clear bilaterally. HEART: S1, S2 regular. ABDOMEN: Tenderness to palpation with biliary stent noted. BACK: Range of motion is decreased in flexion, extension. EXTREMITIES: No cyanosis. No clubbing. No edema. NEURO: No changes. Doug Reid Feb 07, 2019 08:31
--- NOTE | 2019-02-07 09:18 | General Progress Note ---
Assessment/Plan Problem List: (1) SOB (shortness of breath) ICD Codes: R06.02 - Shortness of breath SNOMED: 563831123 (2) Nausea & vomiting ICD Codes: R11.2 - Nausea with vomiting, unspecified SNOMED: 96473513 (3) Malnutrition ICD Codes: E46 - Unspecified protein-calorie malnutrition SNOMED: 75376007 (4) UTI (urinary tract infection) ICD Codes: N39.0 - Urinary tract infection, site not specified SNOMED: 30056287 (5) Abdominal pain ICD Codes: R10.9 - Unspecified abdominal pain SNOMED: 69507021 (6) Biliary drain displacement ICD Codes: T85.520A - Displacement of bile duct prosthesis, initial encounter SNOMED: 155538308 (7) Pancreatic cancer ICD Codes: C25.9 - Malignant neoplasm of pancreas, unspecified SNOMED: 381732960 Status: stable, progressing Assessment/Plan: pt diet pain control abx cbc bmp am dc plan snf Subjective Constitutional: Reports: weakness Allergies: Coded Allergies: No Known Allergies (Unverified , 01/12/19) All Systems: reviewed and negative except above Subjective calm sleepy Objective Last 24 Hour Vital Signs Date Time Temp Pulse Resp B/P (MAP) Pulse Ox O2 Delivery O2 Flow Rate FiO2 02/07/19 08:00 97.0 99 18 105/72 (83) 93 02/07/19 00:00 97.6 80 20 129/72 (91) 97 02/06/19 20:36 Room Air 02/06/19 20:00 96.5 69 21 123/80 (94) 02/06/19 16:00 98.1 83 19 112/71 (85) 98 02/06/19 13:13 96.9 02/06/19 13:13 96.9 02/06/19 12:04 96.9 88 16 132/75 (94) 96 Intake and Output 02/06/19 02/07/19 19:00 07:00 Intake Total 580 ml 755 ml Output Total 370 ml 450 ml Balance 210 ml 305 ml Intake Oral 580 ml 600 ml IV Total 155 ml Output Urine Total 5 ml Other 365 ml 450 ml # Voids 3 2 # Bowel Movements 5 2 Laboratory Tests 02/07/19 05:30: White Blood Count 13.5H, Red Blood Count 2.95L, Hemoglobin 9.3L, Hematocrit 26.7L, Mean Corpuscular Volume 91, Mean Corpuscular Hemoglobin 31.5H, Mean Corpuscular Hemoglobin Concent 34.8, Red Cell Distribution Width 14.2, Platelet Count 421, Mean Platelet Volume 5.7L, Neutrophils (%) (Auto) 78.4H, Lymphocytes (%) (Auto) 8.3L, Monocytes (%) (Auto) 10.2H, Eosinophils (%) (Auto) 1.7, Basophils (%) (Auto) 1.4, Sodium Level 139, Potassium Level 3.6, Chloride Level 106, Carbon Dioxide Level 25, Anion Gap 8, Blood Urea Nitrogen 6L, Creatinine 0.9, Estimat Glomerular Filtration Rate > 60, Glucose Level 88, Calcium Level 7.2L Height (Feet): 5 Height (Inches): 3.00 Weight (Pounds): 133 General Appearance: alert EENT: normal ENT inspection Neck: normal alignment Cardiovascular: normal peripheral pulses, normal rate, regular rhythm Respiratory/Chest: chest wall non-tender, lungs clear, normal breath sounds Abdomen: soft, decreased bowel sounds Extremities: normal inspection Edema: no edema noted Arm (L), no edema noted Arm (R), no edema noted Leg (L), no edema noted Leg (R), no edema noted Pedal (L), no edema noted Pedal (R), no edema noted Generalized Neurologic: responsive, motor weakness Skin: normal pigmentation, warm/dry Elvis Luke DO Feb 07, 2019 09:17
--- NOTE | 2019-02-07 10:21 | Surgery Progress Note ---
Surgery Progress Note Subjective Symptoms: improved, tolerating diet, passing flatus, BM Additional Comments labs improved doing well pending placement right drain removed as no output for days Objective Last 24 Hour Vital Signs Date Time Temp Pulse Resp B/P (MAP) Pulse Ox O2 Delivery O2 Flow Rate FiO2 02/07/19 08:00 97.0 99 18 105/72 (83) 93 02/07/19 00:00 97.6 80 20 129/72 (91) 97 02/06/19 20:36 Room Air 02/06/19 20:00 96.5 69 21 123/80 (94) 02/06/19 16:00 98.1 83 19 112/71 (85) 98 02/06/19 13:13 96.9 02/06/19 13:13 96.9 02/06/19 12:04 96.9 88 16 132/75 (94) 96 I&O Intake and Output 02/06/19 02/07/19 19:00 07:00 Intake Total 580 ml 755 ml Output Total 370 ml 450 ml Balance 210 ml 305 ml Intake Oral 580 ml 600 ml IV Total 155 ml Output Urine Total 5 ml Other 365 ml 450 ml # Voids 3 2 # Bowel Movements 5 2 Dressing: dry Wound: clean Drains: other Cardiovascular: RSR Respiratory: clear Abdomen: soft, flat, non-tender, present bowel sounds Extremities: no edema, no tenderness, no cyanosis Laboratory Tests Test 02/07/19 05:30 White Blood Count 13.5 K/UL (4.8-10.8) H Red Blood Count 2.95 M/UL (4.20-5.40) L Hemoglobin 9.3 G/DL (12.0-16.0) L Hematocrit 26.7 % (37.0-47.0) L Mean Corpuscular Volume 91 FL (80-99) Mean Corpuscular Hemoglobin 31.5 PG (27.0-31.0) H Mean Corpuscular Hemoglobin Concent 34.8 G/DL (32.0-36.0) Red Cell Distribution Width 14.2 % (11.6-14.8) Platelet Count 421 K/UL (150-450) Mean Platelet Volume 5.7 FL (6.5-10.1) L Neutrophils (%) (Auto) 78.4 % (45.0-75.0) H Lymphocytes (%) (Auto) 8.3 % (20.0-45.0) L Monocytes (%) (Auto) 10.2 % (1.0-10.0) H Eosinophils (%) (Auto) 1.7 % (0.0-3.0) Basophils (%) (Auto) 1.4 % (0.0-2.0) Sodium Level 139 MMOL/L (136-145) Potassium Level 3.6 MMOL/L (3.5-5.1) Chloride Level 106 MMOL/L (98-107) Carbon Dioxide Level 25 MMOL/L (21-32) Anion Gap 8 mmol/L (5-15) Blood Urea Nitrogen 6 mg/dL (7-18) L Creatinine 0.9 MG/DL (0.55-1.30) Estimat Glomerular Filtration Rate > 60 mL/min (>60) Glucose Level 88 MG/DL (74-106) Calcium Level 7.2 MG/DL (8.5-10.1) L Plan Problems: (1) Abdominal pain Assessment & Plan: 63-year-old female patient with history of recently diagnosed pancreatic cancer in November 2018 presented to the emergency room at [facility] with complaint of abdominal pain for approximately 1 hour. Patient is status post a biliary drain placement at [facility] approximately 1 week ago. She reported that she had a first treatment of chemotherapy this past Thursday. The patient denied any nausea vomiting, denies any constipation or diarrhea. She states her pain medication was unable to relieve her pain. no fever or chills. labs as below. C Tnoted. surgery called to assist with care and management. tube checked Impression: Diffusely abnormal bowel uptake. Given findings on recent CT scan, this most likely represents enteritis, most likely infectious. Abnormal uptake in the face or upper neck to the left of midline, exact location uncertain. Consider neck CT for better characterization Mildly prominent pulmonary uptake, significance doubted okay for diet tube to drain IV abx d/c planning for SNF f/u with pcp / onc outpatient stable otherwise from surgical standpoint no acute surgical intervention planned Probably has extensive tumor burden given interventions and findings noted. No surgical recommendation at this time. Possible that fluid collection in case in the abdomen infected but to operate on this would be ill advised at this time and patient's current condition. Continue with antibiotics iv fluids trend labs will monitor and follow with exam thank you (2) Biliary drain displacement Assessment & Plan: Daughter was able to inform me with a lot of history. Seems patient unresectable initially and attempted biliary drain placed endoscopically but unsuccessful. A external biliary drain was placed by radiology. Would patient was getting her Port-A-Cath placed a another radiologist felt he could place a internal/external biliary drain and he was able to successfully place a internal/external biliary drain. Had the trade Since. Fell off and she has been without it to drainage recently. In evaluating the trade she has some bilious output from the drain and on imaging drain looks to be appropriately placed. Labs reviewed stable. drain placed to gravity as leaking Drain putting out a ton since placed on 2 bag IMPRESSION: 1. Appropriately positioned percutaneous left biliary drain with mild intrahepatic biliary ductal dilatation. 2. Ill-defined pancreatic head/proximal body mass, likely corresponding to stated history of pancreatic neoplasm. Please note evaluation of size and vascular involvement of pancreatic masses is incomplete prior examinations and without multiphasic pancreatic protocol. 3. 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 SMV confluence is not visualized. 4. Color wall thickening with pericholecystic fluid; in the absence of distended gallbladder, these findings are critical for acute pancreatitis and clinical correlation is recommended. Transhepatic biliary drain noted. 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 Abnormal liver with area of peripheral hypoechogenicity along the posterior right lobe margin. Suggest further evaluation with contrast CT. Obscured pancreas and aorta due to bowel gas. . Interval development of moderate small bowel dilatation. Transition to relatively decompressed terminal ileum demonstrated indicating this is probably a mechanical bowel obstruction. Pneumatosis suspected within one of the proximal small bowel segments in the upper abdomen. No evidence of perforation. Development of multiloculated ascites with prominent collections contiguous with the caudal end of the right lobe of the liver capsule, Morison's pouch and inferior to the right kidney. Other generalized mild ascites noted as well. Internal/external transhepatic biliary drainage catheter in good position. No imaging evidence for catheter malfunction or biliary obstruction. CT noted. likely internal leakage from internal external drain as it was noted to be backing put few days ago hence placed on drainage bag recommend outpatient f/u with oncology and her GI at primary facility to discuss placement of internal metallic larger drain and remove internal / external drain s/p abd drain placement micro noted labs improved on abx s/p new drain 02/01/19 - removed 02/07 / d/c to SNF. f/u with outpatient onc f/u with outpatient GI for consideration of metallic biliary drain now that she has internal external thank you (3) Pancreatic cancer Assessment & Plan: Pancreatic cancer, non-resectable, based on patient's info. Had a Abdominal pelvis CT reviewed 1. Appropriately positioned percutaneous left biliary drain with mild intrahepatic biliary ductal dilatation. 2. Ill- defined pancreatic head/proximal body mass, likely corresponding to stated history of pancreatic neoplasm. Please note evaluation of size and vascular involvement of pancreatic masses is incomplete prior examinations and without multiphasic pancreatic protocol. 3. 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 She has already started rx Jim Gates Feb 07, 2019 10:21
--- NOTE | 2019-02-07 10:27 | Infectious Diseases Prog Note ---
Assessment/Plan Assessment/Plan Fever 01/13, SP Leukocytosis, fluctuating 01/14 bcx ng tumor related? Ileus related? biloma related? atelectasis? 01/24 Ind[place] scan: Diffusely abnormal bowel uptake. Given findings on recent CT scan, this most likely represents enteritis, most likely infectious. Abnormal uptake in the face or upper neck to the left of midline, exact location uncertain. Consider neck CT for better characterization. Mildly prominent pulmonary uptake, significance doubted. On further review the images, activity in the right midabdomen is greater than would be accounted for acute spine hepatic activity, and there is significant activity inferior to the right lobe of the liver in the anterior abdomen. This correlates with a large loculated fluid collection demonstrated on recent CT scan of 01/20/2019, and may indicate infection of this collection. The smaller subcapsular collection in the posterior right hepatic lobe is difficult to differentiate from normal liver activity on this exam, so it is not possible to assess for the presence or absence of abnormal activity in this. 01/27 US: Aspiration of posterior hepatic subcapsular collection, yielding serous fluid which does not appear grossly infected. No drainage catheter placed , therefore, but a specimen was sent to the lab for analysis. Placement of 8.5 [place] pigtail drainage catheter in anterior right lower quadrant intraperitoneal collection. This yielded borderline purulent appearing body brown fluid. Specimen sent to lab for analysis. 01/27 fluid: 76K WBC(92% PMN). cx: 3+ E coli 02/01: Successful ultrasound-guided placement of a percutaneous drain within a fluid collection that was previously infected and previously addressed by a percutaneous drain which had accidentally fallen out yesterday. PNA, CAP? -CXR: Patchy consolidation in the right lower lung, concerning for pneumonia. Mild pulmonary vascular congestion. -flu swab negative urine legionella antigen negative Abdominal pain Pancreatitis? lipase negative 01/12 CT abd/p: Appropriately positioned percutaneous left biliary drain with mild intrahepatic biliary ductal dilatation. Ill-defined pancreatic head/ proximal body mass, likely corresponding to stated history of pancreatic neoplasm. Please note evaluation of size and vascular involvement of pancreatic masses is incomplete prior examinations and without multiphasic pancreatic protocol. 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 SMV confluence is not visualized. Gallbladder wall thickening with pericholecystic fluid; in the absence of distended gallbladder, these findings are critical for acute pancreatitis and clinical correlation is recommended. 01/19 US Abd: Transhepatic biliary drain noted. 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 Abnormal liver with area of peripheral hypoechogenicity along the posterior right lobe margin. Suggest further evaluation with contrast CT. Obscured pancreas and aorta due to bowel gas. Trace ascites 01/20 CT A/P: Interval development of moderate small bowel dilatation. Transition to relatively decompressed terminal ileum demonstrated indicating this is probably a mechanical bowel obstruction. Pneumatosis suspected within one of the proximal small bowel segments in the upper abdomen. No evidence of perforation. Development of multiloculated ascites with prominent collections contiguous with the caudal end of the right lobe of the liver capsule, Morison's pouch and inferior to the right kidney. Other generalized mild ascites noted as well. Internal/external transhepatic biliary drainage catheter in good position. No imaging evidence for catheter malfunction or biliary obstruction. Right basilar consolidation versus atelectasis. Correlate for pneumonia. Trace bilateral pleural effusions. Anasarca recently diagnosed pancreatic CA 11/2018 - s/p biliary drain 1 week [facility] RADIOLOG[facility] at [facility] -sp 1st chemotherapy treatment 01/10/19 tobacco abuse Plan: Ceftriaxone, flagyl #9...recommend repeat imaging in a week to determine if fluid collection still persistent. 01/30 SP Meropenem #6 01/25 SP Ceftriaxone #3, flagyl #1, vancomycin #11 01/22 SP Azithromycin #7 01/23 SP Zosyn #8 01/17 DC Tamiflu #2 -Monitor CBC/CMP, temperatures -aspiration precautions Thank you for this consultation. Will continue to follow along with you. Subjective Allergies: Coded Allergies: No Known Allergies (Unverified , 01/12/19) Subjective Afebrile. WBC better Objective Vital Signs Last 24 Hour Vital Signs Date Time Temp Pulse Resp B/P (MAP) Pulse Ox O2 Delivery O2 Flow Rate FiO2 02/07/19 08:00 97.0 99 18 105/72 (83) 93 02/07/19 00:00 97.6 80 20 129/72 (91) 97 02/06/19 20:36 Room Air 02/06/19 20:00 96.5 69 21 123/80 (94) 02/06/19 16:00 98.1 83 19 112/71 (85) 98 02/06/19 13:13 96.9 02/06/19 13:13 96.9 11/17/19 12:04 96.9 88 16 132/75 (94) 96 Height (Feet): 5 Height (Inches): 3.00 Weight (Pounds): 133 Objective Gen: NAD CV: RRR Resp: RRR Abd: hypoactive BS+. Diffusely TTP but worse RUQ. Ext: no edema Neuro: alert. Laboratory Tests Test 02/07/19 05:30 White Blood Count 13.5 K/UL (4.8-10.8) H Red Blood Count 2.95 M/UL (4.20-5.40) L Hemoglobin 9.3 G/DL (12.0-16.0) L Hematocrit 26.7 % (37.0-47.0) L Mean Corpuscular Volume 91 FL (80-99) Mean Corpuscular Hemoglobin 31.5 PG (27.0-31.0) H Mean Corpuscular Hemoglobin Concent 34.8 G/DL (32.0-36.0) Red Cell Distribution Width 14.2 % (11.6-14.8) Platelet Count 421 K/UL (150-450) Mean Platelet Volume 5.7 FL (6.5-10.1) L Neutrophils (%) (Auto) 78.4 % (45.0-75.0) H Lymphocytes (%) (Auto) 8.3 % (20.0-45.0) L Monocytes (%) (Auto) 10.2 % (1.0-10.0) H Eosinophils (%) (Auto) 1.7 % (0.0-3.0) Basophils (%) (Auto) 1.4 % (0.0-2.0) Sodium Level 139 MMOL/L (136-145) Potassium Level 3.6 MMOL/L (3.5-5.1) Chloride Level 106 MMOL/L (98-107) Carbon Dioxide Level 25 MMOL/L (21-32) Anion Gap 8 mmol/L (5-15) Blood Urea Nitrogen 6 mg/dL (7-18) L Creatinine 0.9 MG/DL (0.55-1.30) Estimat Glomerular Filtration Rate > 60 mL/min (>60) Glucose Level 88 MG/DL (74-106) Calcium Level 7.2 MG/DL (8.5-10.1) L Current Medications Medications (Trade) Dose Ordered Sig/Zuleima Route PRN Reason Start Time Stop Time Status Last Admin Dose Admin Acetaminophen (Tylenol) 650 mg Q8H PRN ORAL Mild Pain/Temp > 100.5 01/12/19 17:30 02/11/19 17:29 02/03/19 10:16 Bisacodyl (Dulcolax) 10 mg BIDPRN PRN RECTAL Constipation 01/16/19 07:45 02/15/19 07:44 01/19/19 18:34 Ceftriaxone Sodium 1 gm/ Dextrose 55 ml @ 110 mls/hr Q24H IVPB 01/30/19 22:00 02/10/19 21:59 02/06/19 21:05 Dextrose (Dextrose 50%) 25 ml Q30M PRN IV Hypoglycemia 01/12/19 13:45 02/11/19 13:44 Dextrose (Dextrose 50%) 50 ml Q30M PRN IV Hypoglycemia 01/12/19 13:45 02/11/19 13:44 Enoxaparin Sodium (Lovenox) 60 mg Q12HR@0600,1800 SUBQ 01/20/19 18:00 02/19/19 17:59 02/07/19 05:22 Ergocalciferol (Drisdol) 50,000 intlu ONCE A WEEK ORAL 02/05/19 18:00 03/07/19 17:59 02/05/19 18:00 Fentanyl (Duragesic) 1 patch Q72H TDERMAL 01/25/19 12:00 02/08/19 11:59 02/06/19 12:58 Gabapentin (Neurontin) 300 mg THREE TIMES A DAY ORAL 01/19/19 18:00 02/18/19 17:59 02/07/19 10:02 Hydromorphone HCl (Dilaudid) 4 mg Q4H PRN ORAL Severe Breakthru Pain (>7) 02/06/19 15:15 02/13/19 15:14 02/07/19 10:01 Methylnaltrexone [place] (Relistor) 12 mg ONCE A WEEK SUBQ 02/01/19 09:00 03/03/19 08:59 Metronidazole 100 ml @ 100 mls/hr Q8HR IVPB 01/30/19 15:30 02/10/19 15:29 02/07/19 05:23 Miscellaneous Medication (fentaNYL Destruction) 1 ea Q72H MISC 01/25/19 11:59 02/24/19 11:58 02/06/19 11:59 Naloxone HCl (Narcan) 0.1 mg Q5M PRN IV Sedation scale 3 or 4 01/24/19 09:00 02/23/19 08:54 Ondansetron HCl (Zofran) 4 mg Q6H PRN IVP Nausea & Vomiting 01/12/19 13:45 02/11/19 13:44 01/26/19 08:08 Pantoprazole (Protonix) 40 mg EVERY 12 HOURS ORAL 01/27/19 21:00 02/26/19 20:59 02/07/19 10:02 Polyethylene Glycol (Miralax) 17 gm BEDTIME PRN ORAL constipation 01/22/19 10:30 02/15/19 20:59 Potassium Chloride (K-Dur) 40 meq TID ORAL 02/06/19 09:00 02/26/19 09:59 02/07/19 10:01 Simethicone (Mylicon) 80 mg BIDPRN PRN ORAL gas 01/18/19 21:45 02/17/19 21:44 02/06/19 10:44 Zolpidem Tartrate (Ambien) 5 mg HSPRN PRN ORAL Insomnia 02/03/19 21:15 02/10/19 21:14 02/07/19 03:28 Catalina Kirby MD Feb 07, 2019 10:26
--- NOTE | 2019-02-07 11:00 | Hematology/Onc Progress Note ---
Assessment/Plan Assessment/Plan Assessment/Plan # Pancreatic cancer, non-resectable, based on patient's info. Had a Abdominal pelvis CT reviewed 1. Appropriately positioned percutaneous left biliary drain with mild intrahepatic biliary ductal dilatation. 2. Ill-defined pancreatic head/proximal body mass, likely corresponding to stated history of pancreatic neoplasm. Please note evaluation of size and vascular involvement of pancreatic masses is incomplete prior examinations and without multiphasic pancreatic protocol. 3. 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 She has already started rx. --> gi recs noted No plans for GI procedures at this time --> surgical recommendations, no interventions at this time --> likely to continue chemo and XRT as needed with Dr. Elias Bernal (has received one chemo session) --> CA 19.9 688, in general with this presentation, poor prognosis --> if doesn't get chemo soon, likely to deteriorate, may be hospice candidate --> DW Dr. Shyann Bernal on 02/03/19 # Portal vein thrombosis with abd pain (MAY BE due to tumor encasement) --> may be contributor for abdominal pain --> appears to be chronic portal vein thrombosis on imaging --> minimize pain meds as much as possible --> started on lovenox, okay to transition to noac once discharged # Thrombocytosis, is secondary to underlying process --> currently improved --> less likely myeloproliferative --> smear has been reviewed --> trend 700-->800-->920-->1040k-->997-->304 --> consider asa if worsens, doesn't need leukapheresis # Anemia of myelosuppressive chemo --> okay to continue on chemo at this time --> epo as stimulating factor if drops --> dw patient risks of dvt/VTE # Leukocytosis is likely due to pna --> agree to trend, improved --> abx as per id --> wbc trend 22-->20-->18k-->34k-->22-->19k-->21k-->20-->16.3 -->20 --> ceftriaxone # Transaminitis --> Trend LFTs --> per gi --> advance diet as tolerated # Dvt ppx LOVENOX 1mg/sq bid Appreciate consultation and dw RN Subjective Constitutional: Denies: no symptoms, chills, fever, malaise, weakness, other HEENT: Denies: no symptoms, eye pain, blurred vision, tearing, double vision, ear pain, ear discharge, nose pain, nose congestion, throat pain, throat swelling, mouth pain, mouth swelling, other Cardiovascular: Denies: no symptoms, chest pain, edema, irregular heart rate, lightheadedness, palpitations, syncope, other Respiratory: Denies: no symptoms, cough, shortness of breath, SOB with excertion, SOB at rest, sputum, wheezing, other Genitourinary: Denies: no symptoms, burning, discharge, frequency, flank pain, hematuria, incontinence, pain, urgency, other Neurologic/Psychiatric: Denies: no symptoms, anxiety, depressed, emotional problems, headache, numbness, paresthesia, pre-existing deficit, seizure, tingling, tremors, weakness, other Endocrine: Denies: no symptoms, excessive sweating, flushing, intolerance to cold, intolerance to heat, increased hunger, increased thirst, increased urine, unexplained weight gain, unexplained weight loss, other Allergies: Coded Allergies: No Known Allergies (Unverified , 01/12/19) Subjective 01/13: no events to report, no f/c, no night sweats 01/14: no bleeding, on meds, ivf 01/15: no major changes, dw patient, some minor abd pain 01/18: no major events, drain is to gravity, seen by surg, no bleeidng 01/19: awake, alert, getting dressed this am, labs noted 01/20: no events, no bleeding reported, no major changes, no fc 01/21: appears on ct scan that she has a chronic portal vein thrombosis, reviewed results with rad 01/23: to be transferred to tele for sob, and also okay with snf placement 01/24: no major changes, no bleeding reported, no f/c 01/25: no events, no complaints in the am, sleeping, no chills 01/26: no bleeding noted, no f/c, no night sweats 02/03: awake and alert, wbc 16, on ceftriaxone, h/h stable 02/04: no events, no bleeding, labs noted, feeling tired this am 02/05: no bleeding no fevers or chills, no night sweats 02/07: no events to report, no bleeding, 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, have dw rn would be difficult Objective Objective Current Medications Medications (Trade) Dose Ordered Sig/Zuleima Route PRN Reason Start Time Stop Time Status Last Admin Dose Admin Acetaminophen (Tylenol) 650 mg Q8H PRN ORAL Mild Pain/Temp > 100.5 01/12/19 17:30 02/11/19 17:29 02/03/19 10:16 Bisacodyl (Dulcolax) 10 mg BIDPRN PRN RECTAL Constipation 01/16/19 07:45 02/15/19 07:44 01/19/19 18:34 Ceftriaxone Sodium 1 gm/ Dextrose 55 ml @ 110 mls/hr Q24H IVPB 01/30/19 22:00 02/10/19 21:59 02/06/19 21:05 Dextrose (Dextrose 50%) 25 ml Q30M PRN IV Hypoglycemia 01/12/19 13:45 02/11/19 13:44 Dextrose (Dextrose 50%) 50 ml Q30M PRN IV Hypoglycemia 01/12/19 13:45 02/11/19 13:44 Enoxaparin Sodium (Lovenox) 60 mg Q12HR@0600,1800 SUBQ 01/20/19 18:00 02/19/19 17:59 02/07/19 05:22 Ergocalciferol (Drisdol) 50,000 intlu ONCE A WEEK ORAL 02/05/19 18:00 03/07/19 17:59 02/05/19 18:00 Fentanyl (Duragesic) 1 patch Q72H TDERMAL 01/25/19 12:00 02/08/19 11:59 02/06/19 12:58 Gabapentin (Neurontin) 300 mg THREE TIMES A DAY ORAL 01/19/19 18:00 02/18/19 17:59 02/07/19 10:02 Hydromorphone HCl (Dilaudid) 4 mg Q4H PRN ORAL Severe Breakthru Pain (>7) 02/06/19 15:15 02/13/19 15:14 02/07/19 10:01 Methylnaltrexone [place] (Relistor) 12 mg ONCE A WEEK SUBQ 02/01/19 09:00 03/03/19 08:59 Metronidazole 100 ml @ 100 mls/hr Q8HR IVPB 01/30/19 15:30 02/10/19 15:29 02/07/19 05:23 Miscellaneous Medication (fentaNYL Destruction) 1 ea Q72H MISC 01/25/19 11:59 02/24/19 11:58 02/06/19 11:59 Naloxone HCl (Narcan) 0.1 mg Q5M PRN IV Sedation scale 3 or 4 01/24/19 09:00 02/23/19 08:54 Ondansetron HCl (Zofran) 4 mg Q6H PRN IVP Nausea & Vomiting 01/12/19 13:45 02/11/19 13:44 01/26/19 08:08 Pantoprazole (Protonix) 40 mg EVERY 12 HOURS ORAL 01/27/19 21:00 02/26/19 20:59 02/07/19 10:02 Polyethylene Glycol (Miralax) 17 gm BEDTIME PRN ORAL constipation 01/22/19 10:30 02/15/19 20:59 Potassium Chloride (K-Dur) 40 meq TID ORAL 02/06/19 09:00 02/26/19 09:59 02/07/19 10:01 Simethicone (Mylicon) 80 mg BIDPRN PRN ORAL gas 01/18/19 21:45 02/17/19 21:44 02/06/19 10:44 Zolpidem Tartrate (Ambien) 5 mg HSPRN PRN ORAL Insomnia 02/03/19 21:15 02/10/19 21:14 02/07/19 03:28 Last 24 Hour Vital Signs Date Time Temp Pulse Resp B/P (MAP) Pulse Ox O2 Delivery O2 Flow Rate FiO2 02/07/19 09:00 Room Air 02/07/19 08:00 97.0 99 18 105/72 (83) 93 02/07/19 00:00 97.6 80 20 129/72 (91) 97 02/06/19 20:36 Room Air 02/06/19 20:00 96.5 69 21 123/80 (94) 02/06/19 16:00 98.1 83 19 112/71 (85) 98 02/06/19 13:13 96.9 02/06/19 13:13 96.9 02/06/19 12:04 96.9 88 16 132/75 (94) 96 02/06/19 09:00 Room Air 02/06/19 08:00 97.1 87 16 119/77 (91) 95 02/06/19 04:00 98.2 81 19 106/74 (85) 97 02/06/19 00:00 97.5 80 19 125/62 (83) 96 02/05/19 21:00 Room Air 02/05/19 20:00 98.1 85 19 106/51 (69) 96 02/05/19 16:00 98.2 84 16 119/76 (90) 95 02/05/19 12:00 96.6 98 18 118/72 (87) 98 Intake and Output 02/06/19 02/07/19 19:00 07:00 Intake Total 580 ml 755 ml Output Total 370 ml 450 ml Balance 210 ml 305 ml Intake Oral 580 ml 600 ml IV Total 155 ml Output Urine Total 5 ml Other 365 ml 450 ml # Voids 3 2 # Bowel Movements 5 2 Labs Test 02/05/19 06:30 02/06/19 05:45 02/07/19 05:30 White Blood Count 16.3 K/UL (4.8-10.8) 16.5 K/UL (4.8-10.8) 13.5 K/UL (4.8-10.8) Red Blood Count 3.09 M/UL (4.20-5.40) 2.89 M/UL (4.20-5.40) 2.95 M/UL (4.20-5.40) Hemoglobin 9.7 G/DL (12.0-16.0) 9.1 G/DL (12.0-16.0) 9.3 G/DL (12.0-16.0) Hematocrit 29.0 % (37.0-47.0) 27.2 % (37.0-47.0) 26.7 % (37.0-47.0) Mean Corpuscular Volume 94 FL (80-99) 94 FL (80-99) 91 FL (80-99) Mean Corpuscular Hemoglobin 31.3 PG (27.0-31.0) 31.4 PG (27.0-31.0) 31.5 PG (27.0-31.0) Mean Corpuscular Hemoglobin Concent 33.3 G/DL (32.0-36.0) 33.3 G/DL (32.0-36.0) 34.8 G/DL (32.0-36.0) Red Cell Distribution Width 15.1 % (11.6-14.8) 15.4 % (11.6-14.8) 14.2 % (11.6-14.8) Platelet Count 395 K/UL (150-450) 401 K/UL (150-450) 421 K/UL (150-450) Mean Platelet Volume 6.0 FL (6.5-10.1) 5.9 FL (6.5-10.1) 5.7 FL (6.5-10.1) Neutrophils (%) (Auto) 78.8 % (45.0-75.0) 80.7 % (45.0-75.0) 78.4 % (45.0-75.0) Lymphocytes (%) (Auto) 9.5 % (20.0-45.0) 7.5 % (20.0-45.0) 8.3 % (20.0-45.0) Monocytes (%) (Auto) 10.2 % (1.0-10.0) 9.4 % (1.0-10.0) 10.2 % (1.0-10.0) Eosinophils (%) (Auto) 0.7 % (0.0-3.0) 1.0 % (0.0-3.0) 1.7 % (0.0-3.0) Basophils (%) (Auto) 0.9 % (0.0-2.0) 1.3 % (0.0-2.0) 1.4 % (0.0-2.0) Sodium Level 139 MMOL/L (136-145) 132 MMOL/L (136-145) 139 MMOL/L (136-145) Potassium Level 3.6 MMOL/L (3.5-5.1) 3.3 MMOL/L (3.5-5.1) 3.6 MMOL/L (3.5-5.1) Chloride Level 105 MMOL/L (98-107) 101 MMOL/L (98-107) 106 MMOL/L (98-107) Carbon Dioxide Level 25 MMOL/L (21-32) 28 MMOL/L (21-32) 25 MMOL/L (21-32) Anion Gap 9 mmol/L (5-15) 3 mmol/L (5-15) 8 mmol/L (5-15) Blood Urea Nitrogen 6 mg/dL (7-18) 6 mg/dL (7-18) 6 mg/dL (7-18) Creatinine 1.0 MG/DL (0.55-1.30) 0.9 MG/DL (0.55-1.30) 0.9 MG/DL (0.55-1.30) Estimat Glomerular Filtration Rate 56.2 mL/min (>60) > 60 mL/min (>60) > 60 mL/min (>60) Glucose Level 89 MG/DL (74-106) 99 MG/DL (74-106) 88 MG/DL (74-106) Calcium Level 7.3 MG/DL (8.5-10.1) 7.2 MG/DL (8.5-10.1) 7.2 MG/DL (8.5-10.1) Height (Feet): 5 Height (Inches): 3.00 Weight (Pounds): 133 Objective Gen: nad Pulm: Ctab Cardiovascular: RSR Abdomen: soft, flat, non-tender, present bowel sounds ext-int drain Extremities: no edema, no tenderness, no cyanosis Roberto Davidson MD Feb 07, 2019 11:00
--- NOTE | 2019-02-07 11:06 | NUR ---
NURSE NOTES: Patient verbalized that Dr Gates took out her right abdominal drain this morning, dressing dry and intact. Currently reports nausea, PRN medication given.
--- NOTE | 2019-02-07 12:21 | NUR ---
RD ASSESSMENT & RECOMMENDATIONS SEE CARE ACTIVITY FOR COMPLETE ASSESSMENT DAILY ESTIMATED NEEDS: Needs based on CA/ 59kg 25-30 kcals/kg 8540-5132 total kcals 1-1.5 g protein/kg 59-89 g total protein 25-30 mL/kg 3518-6619 total fluid mLs NUTRITION DIAGNOSIS: Increased kcal/prot needs R/T catabolic dx as evidenced by dx of pancreatitis CA, s/p recent chemo, CA 19-9 level 688 CURRENT DIET:REGULAR PO DIET RECOMMENDATIONS: Liberalized REGULAR diet as tolerated, rec small frequent meals ADDITIONAL RECOMMENDATIONS: * Standing weight for accurate CBW (pt reports standing ga=[id number] on 01/26) VS bedscale wt of 73kg (160lbs) * Ensure Enlive q daily (350kcal/20g prot each) * Rec small frequent meals -> add snacks TID in b/w meals * Monitor PO tolerance and acceptance . .
--- NOTE | 2019-02-07 12:21 | Nephrology Progress Note ---
Assessment/Plan Problem List: (1) Electrolyte abnormality (2) Pancreatic cancer (3) Biliary drain displacement (4) Abdominal pain (5) Malnutrition Assessment HypoKalemia HypoNatremia Abdominal pain. Nausea. Vomiting. UTI. Pancreatic cancer. Biliary drain displacement Malnutrition. 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 Subjective ROS Limited/Unobtainable: No Constitutional: Reports: malaise Objective Objective Last 24 Hour Vital Signs Date Time Temp Pulse Resp B/P (MAP) Pulse Ox O2 Delivery O2 Flow Rate FiO2 02/07/19 09:00 Room Air 02/07/19 08:00 97.0 99 18 105/72 (83) 93 02/07/19 00:00 97.6 80 20 129/72 (91) 97 02/06/19 20:36 Room Air 02/06/19 20:00 96.5 69 21 123/80 (94) 02/06/19 16:00 98.1 83 19 112/71 (85) 98 02/06/19 13:13 96.9 02/06/19 13:13 96.9 Intake and Output 02/06/19 02/07/19 19:00 07:00 Intake Total 580 ml 755 ml Output Total 370 ml 450 ml Balance 210 ml 305 ml Intake Oral 580 ml 600 ml IV Total 155 ml Output Urine Total 5 ml Other 365 ml 450 ml # Voids 3 2 # Bowel Movements 5 2 Laboratory Tests 02/07/19 05:30: White Blood Count 13.5H, Red Blood Count 2.95L, Hemoglobin 9.3L, Hematocrit 26.7L, Mean Corpuscular Volume 91, Mean Corpuscular Hemoglobin 31.5H, Mean Corpuscular Hemoglobin Concent 34.8, Red Cell Distribution Width 14.2, Platelet Count 421, Mean Platelet Volume 5.7L, Neutrophils (%) (Auto) 78.4H, Lymphocytes (%) (Auto) 8.3L, Monocytes (%) (Auto) 10.2H, Eosinophils (%) (Auto) 1.7, Basophils (%) (Auto) 1.4, Sodium Level 139, Potassium Level 3.6, Chloride Level 106, Carbon Dioxide Level 25, Anion Gap 8, Blood Urea Nitrogen 6L, Creatinine 0.9, Estimat Glomerular Filtration Rate > 60, Glucose Level 88, Calcium Level 7.2L Height (Feet): 5 Height (Inches): 3.00 Weight (Pounds): 133 General Appearance: no apparent distress Objective no change Kapil Turcios MD Feb 07, 2019 12:21
--- NOTE | 2019-02-07 13:18 | GI Progress Note ---
Assessment/Plan Problems: (1) Pancreatic cancer ICD Codes: C25.9 - Malignant neoplasm of pancreas, unspecified SNOMED: 571743724 (2) Biliary drain displacement ICD Codes: T85.520A - Displacement of bile duct prosthesis, initial encounter SNOMED: 719375188 (3) Abdominal pain ICD Codes: R10.9 - Unspecified abdominal pain SNOMED: 27712568 Status: stable, unchanged Status Narrative Discussed with Dr. Rocha. Assessment/Plan Abdominal pelvis CT reviewed 1. Appropriately positioned percutaneous left biliary drain with mild intrahepatic biliary ductal dilatation. 2. Ill-defined pancreatic head/proximal body mass, likely corresponding to stated history of pancreatic neoplasm. Please note evaluation of size and vascular involvement of pancreatic masses is incomplete prior examinations and without multiphasic pancreatic protocol. 3. 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 SMV confluence is not visualized. 4. Color wall thickening with pericholecystic fluid; in the absence of distended gallbladder, these findings are critical for acute pancreatitis and clinical correlation is recommended. Indium scan suggest enteritis with diffuse abnormal bowel uptake. In addition abnormal uptake in the face or upper neck region. Status post ultrasound-guided aspiration of the posterior hepatic subcapsular collection. No plans for GI procedures at this time, dc planning Symptomatic treatment bowel regime, colace + miralax. Relistor q weekly. surgical recommendations pain management recommendations ppi Trend LFTs advance diet PT evaluation We will follow-up The patient was seen and examined at bedside and all new and available data was reviewed in the patients chart. I agree with the above findings, impression and plan. (Patient seen earlier today. Signature stamp does not reflect patient encounter time.). - Indra Rocha MD Subjective Subjective Patient still complains of abdominal pain, improved with medication Objective Last 24 Hour Vital Signs Date Time Temp Pulse Resp B/P (MAP) Pulse Ox O2 Delivery O2 Flow Rate FiO2 02/07/19 09:00 Room Air 02/07/19 08:00 97.0 99 18 105/72 (83) 93 02/07/19 00:00 97.6 80 20 129/72 (91) 97 02/06/19 20:36 Room Air 02/06/19 20:00 96.5 69 21 123/80 (94) 02/06/19 16:00 98.1 83 19 112/71 (85) 98 Intake and Output 02/06/19 02/07/19 18:59 06:59 Intake Total 580 ml 755 ml Output Total 370 ml 450 ml Balance 210 ml 305 ml Intake Oral 580 ml 600 ml IV Total 155 ml Output Urine Total 5 ml Other 365 ml 450 ml # Voids 3 2 # Bowel Movements 5 2 Laboratory Tests Test 02/07/19 05:30 White Blood Count 13.5 K/UL (4.8-10.8) H Red Blood Count 2.95 M/UL (4.20-5.40) L Hemoglobin 9.3 G/DL (12.0-16.0) L Hematocrit 26.7 % (37.0-47.0) L Mean Corpuscular Volume 91 FL (80-99) Mean Corpuscular Hemoglobin 31.5 PG (27.0-31.0) H Mean Corpuscular Hemoglobin Concent 34.8 G/DL (32.0-36.0) Red Cell Distribution Width 14.2 % (11.6-14.8) Platelet Count 421 K/UL (150-450) Mean Platelet Volume 5.7 FL (6.5-10.1) L Neutrophils (%) (Auto) 78.4 % (45.0-75.0) H Lymphocytes (%) (Auto) 8.3 % (20.0-45.0) L Monocytes (%) (Auto) 10.2 % (1.0-10.0) H Eosinophils (%) (Auto) 1.7 % (0.0-3.0) Basophils (%) (Auto) 1.4 % (0.0-2.0) Sodium Level 139 MMOL/L (136-145) Potassium Level 3.6 MMOL/L (3.5-5.1) Chloride Level 106 MMOL/L (98-107) Carbon Dioxide Level 25 MMOL/L (21-32) Anion Gap 8 mmol/L (5-15) Blood Urea Nitrogen 6 mg/dL (7-18) L Creatinine 0.9 MG/DL (0.55-1.30) Estimat Glomerular Filtration Rate > 60 mL/min (>60) Glucose Level 88 MG/DL (74-106) Calcium Level 7.2 MG/DL (8.5-10.1) L Height (Feet): 5 Height (Inches): 3.00 Weight (Pounds): 133 General Appearance: WD/WN, no apparent distress, alert Cardiovascular: normal rate Respiratory/Chest: normal breath sounds, no respiratory distress Abdominal Exam: normal bowel sounds, non tender, soft Extremities: normal range of motion, non-tender Jeff Rueda NP Feb 07, 2019 13:18
--- NOTE | 2019-02-07 15:23 | NUR ---
*-* INSURANCE *-* ALL AVAILABLE CLINICALS HAVE BEEN FAXED TO: REF#[id number] - FOR TRACKING PURPOSES THIS IS SHARED RISK NO CM ASSIGNED PH#[phone] FAX#[phone] REVIEWS[facility]CLINICALS & [facility]#[id number] CM: TAMMY PH#[phone] EXT [phone] FAX#[phone] REVIEWS/CLINICALS
[2019-02-07 16:00] VITALS: BP 105/71
--- NOTE | 2019-02-07 19:20 | NUR ---
NURSE NOTES: Received report from CAITIE Lee. Pt sleeping in bed, on room air. IV site intact and patent. L side biliary drain intact and draining well. Commode and walker at bedside. Fall precaution maintained. No c/o pain/resp. distress noted at this time. Bed locked, lowest position, alarm on, side rails up x 2, call light within reach. Will continue to monitor.
--- NOTE | 2019-02-07 19:33 | NUR ---
HAND-OFF: Report given to Magdalena.
[2019-02-07 20:00] VITALS: BP 102/65
[2019-02-07] MEDS: cefTRIAXone 1gm/D5W 55ml IVPB SCH ×2 (22:10)
[2019-02-08] VITALS: BP 106/70
[2019-02-08] MEDS: Simethicone 80mg tab ORAL PRN ×2 (01:22→20:44)
[2019-02-08] MEDS: Zolpidem 5mg tab ORAL PRN (01:27)
[2019-02-08 04:00] VITALS: BP 104/65
[2019-02-08] MEDS: metroNIDAZOLE 500mg Premix IVPB SCH ×3 (05:32→22:01)
[2019-02-08] MEDS: Enoxaparin 60mg Inj SUBQ SCH ×2 (05:33→17:30)
[2019-02-08 07:18] LABS: BASOPHILS % (AUTO) 1.7 % (0.0-2.0); HEMATOCRIT 27.1 % (37.0-47.0); HEMOGLOBIN 9.1 G/DL (12.0-16.0); LYMPHOCYTES % (AUTO) 10.6 % (20.0-45.0); MEAN CORPUSCULAR VOLUME 92 FL (80-99); MONOCYTES % (AUTO) 10.2 % (1.0-10.0); NEUTROPHILS % (AUTO) 75.5 % (45.0-75.0); PLATELET COUNT 471 K/UL (150-450); RED BLOOD COUNT 2.95 M/UL (4.20-5.40); RED CELL DISTRIBUTION WIDTH 13.8 % (11.6-14.8); WHITE BLOOD COUNT 11.2 K/UL (4.8-10.8)
--- NOTE | 2019-02-08 07:28 | NUR ---
HAND-OFF: Report given to CAITIE Sherwood.
[2019-02-08 07:29] LABS: ALANINE AMINOTRANSFERASE 8 U/L (12-78); ALBUMIN 1.3 G/DL (3.4-5.0); ALBUMIN/GLOBULIN RATIO 0.3 (1.0-2.7); ALKALINE PHOSPHATASE 126 U/L (46-116); ANION GAP 8 mmol/L (5-15); ASPARTATE AMINO TRANSFERASE 13 U/L (15-37); BILIRUBIN,TOTAL 0.3 MG/DL (0.2-1.0); BLOOD UREA NITROGEN 6 mg/dL (7-18); CARBON DIOXIDE 25 MMOL/L (21-32); CHLORIDE 107 MMOL/L (98-107); CREATININE 0.9 MG/DL (0.55-1.30); PHOSPHORUS 3.4 MG/DL (2.5-4.9); POTASSIUM 3.4 MMOL/L (3.5-5.1); SODIUM 140 MMOL/L (136-145)
--- NOTE | 2019-02-08 07:30 | NUR ---
NURSE NOTES: Received pt, sitting on a chair. Room air. c/o of pain 10/30 asking for tylenol and it will be given. IV on L FA 24g intact and patent, running TKO. Biliary duct on the L side noted. Commode at the bedside. Bed in the lowest and locked. all light within reach. Will continue to monitor
[2019-02-08 08:00] VITALS: BP 114/78
[2019-02-08] MEDS: Relistor 12mg/0.6ml Vial SUBQ SCH (08:33)
--- NOTE | 2019-02-08 08:47 | General Progress Note ---
Assessment/Plan Assessment/Plan: (1) Intractable abdominal pain (2) Pancreatic cancer We will continue the Neurontin, Dilaudid and Fentanyl patch D/w Dr. Gonzales and he concurred. Subjective Date patient seen: Feb 08, 2019 Time patient seen: 07:45 - am Allergies: Coded Allergies: No Known Allergies (Unverified , 01/12/19) Subjective REVIEW OF SYSTEMS: Denies rash, fever, chills, sweating, dizziness, drowsiness, blurred vision, sore throat, change in weight. No shortness of breath or chest pain. No bowel or bladder incontinence. She is complaining of abdominal pain. SUBJECTIVE: Patient is showing no signs of pain or distress. Her pain has been at a moderate level tolerated on the Fentanyl patch and Dilaudid. No new complaints at this time. Objective Last 24 Hour Vital Signs Date Time Temp Pulse Resp B/P (MAP) Pulse Ox O2 Delivery O2 Flow Rate FiO2 02/08/19 08:00 98.1 92 14 114/78 (90) 98 02/08/19 04:00 98.0 72 20 104/65 (78) 96 02/08/19 00:00 97.6 76 20 106/70 (82) 97 02/07/19 20:04 Room Air 02/07/19 20:00 97.2 76 18 102/65 (77) 98 02/07/19 16:00 98.9 85 18 105/71 (82) 95 02/07/19 09:00 Room Air Intake and Output 02/07/19 02/08/19 19:00 07:00 Intake Total 680 ml 155 ml Output Total 375 ml Balance 680 ml -220 ml IV Total 155 ml Other 680 ml Other 375 ml # Voids 3 # Bowel Movements 3 Laboratory Tests 02/08/19 05:35: White Blood Count 11.2H, Red Blood Count 2.95L, Hemoglobin 9.1L, Hematocrit 27.1L, Mean Corpuscular Volume 92, Mean Corpuscular Hemoglobin 31.0, Mean Corpuscular Hemoglobin Concent 33.8, Red Cell Distribution Width 13.8, Platelet Count 471H, Mean Platelet Volume 5.6L, Neutrophils (%) (Auto) 75.5H, Lymphocytes (%) (Auto) 10.6L, Monocytes (%) (Auto) 10.2H, Eosinophils (%) (Auto ) 2.0, Basophils (%) (Auto) 1.7, Sodium Level 140, Potassium Level 3.4L, Chloride Level 107, Carbon Dioxide Level 25, Anion Gap 8, Blood Urea Nitrogen 6L , Creatinine 0.9, Estimat Glomerular Filtration Rate > 60, Glucose Level 87, Calcium Level 7.0L, Phosphorus Level 3.4, Magnesium Level 1.0L, Total Bilirubin 0.3, Aspartate Amino Transf (AST/SGOT) 13L, Alanine Aminotransferase (ALT/SGPT) 8L, Alkaline Phosphatase 126H, Total Protein 5.3L, Albumin 1.3L, Globulin 4.0, Albumin/Globulin Ratio 0.3L Height (Feet): 5 Height (Inches): 3.00 Weight (Pounds): 133 Objective GENERAL: Alert, awake, and oriented. LUNGS: Clear bilaterally. HEART: S1, S2 regular. ABDOMEN: Tenderness to palpation with biliary stent noted. BACK: Range of motion is decreased in flexion, extension. EXTREMITIES: No cyanosis. No clubbing. No edema. NEURO: No changes. Doug Reid Feb 08, 2019 08:47
--- NOTE | 2019-02-08 09:47 | General Progress Note ---
Assessment/Plan Assessment/Plan: (1) Pancreatic cancer ICD Codes: C25.9 - Malignant neoplasm of pancreas, unspecified SNOMED: 221659180 (2) Biliary drain displacement ICD Codes: T85.520A - Displacement of bile duct prosthesis, initial encounter SNOMED: 973842394 (3) Abdominal pain ICD Codes: R10.9 - Unspecified abdominal pain SNOMED: 73304740 Status: unchanged Assessment/Plan Abdominal pelvis CT reviewed 1. Appropriately positioned percutaneous left biliary drain with mild intrahepatic biliary ductal dilatation. 2. Ill-defined pancreatic head/proximal body mass, likely corresponding to stated history of pancreatic neoplasm. Please note evaluation of size and vascular involvement of pancreatic masses is incomplete prior examinations and without multiphasic pancreatic protocol. 3. 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 SMV confluence is not visualized. 4. Color wall thickening with pericholecystic fluid; in the absence of distended gallbladder, these findings are critical for acute pancreatitis and clinical correlation is recommended. No plans for GI procedures at this time. Symptomatic treatment surgical recommendations, no interventions at this time Follow-up pain management recommendations ppi Trend LFTs We will follow-up Subjective Allergies: Coded Allergies: No Known Allergies (Unverified , 01/12/19) Subjective constipated Objective Last 24 Hour Vital Signs Date Time Temp Pulse Resp B/P (MAP) Pulse Ox O2 Delivery O2 Flow Rate FiO2 02/08/19 08:00 98.1 92 14 114/78 (90) 98 02/08/19 04:00 98.0 72 20 104/65 (78) 96 02/08/19 00:00 97.6 76 20 106/70 (82) 97 02/07/19 20:04 Room Air 02/07/19 20:00 97.2 76 18 102/65 (77) 98 02/07/19 16:00 98.9 85 18 105/71 (82) 95 Intake and Output 02/07/19 02/08/19 19:00 07:00 Intake Total 680 ml 155 ml Output Total 375 ml Balance 680 ml -220 ml IV Total 155 ml Other 680 ml Other 375 ml # Voids 3 # Bowel Movements 3 Laboratory Tests 02/08/19 05:35: White Blood Count 11.2H, Red Blood Count 2.95L, Hemoglobin 9.1L, Hematocrit 27.1L, Mean Corpuscular Volume 92, Mean Corpuscular Hemoglobin 31.0, Mean Corpuscular Hemoglobin Concent 33.8, Red Cell Distribution Width 13.8, Platelet Count 471H, Mean Platelet Volume 5.6L, Neutrophils (%) (Auto) 75.5H, Lymphocytes (%) (Auto) 10.6L, Monocytes (%) (Auto) 10.2H, Eosinophils (%) (Auto ) 2.0, Basophils (%) (Auto) 1.7, Sodium Level 140, Potassium Level 3.4L, Chloride Level 107, Carbon Dioxide Level 25, Anion Gap 8, Blood Urea Nitrogen 6L , Creatinine 0.9, Estimat Glomerular Filtration Rate > 60, Glucose Level 87, Calcium Level 7.0L, Phosphorus Level 3.4, Magnesium Level 1.0L, Total Bilirubin 0.3, Aspartate Amino Transf (AST/SGOT) 13L, Alanine Aminotransferase (ALT/SGPT) 8L, Alkaline Phosphatase 126H, Total Protein 5.3L, Albumin 1.3L, Globulin 4.0, Albumin/Globulin Ratio 0.3L Height (Feet): 5 Height (Inches): 3.00 Weight (Pounds): 133 General Appearance: alert EENT: normal ENT inspection Neck: supple Cardiovascular: normal rate Respiratory/Chest: lungs clear Abdomen: normal bowel sounds, non tender, soft Extremities: non-tender Indra Rocha MD Feb 08, 2019 09:47
[2019-02-08] MEDS: Spironolactone 25mg tab ORAL SCH (10:03)
--- NOTE | 2019-02-08 10:23 | Hematology/Onc Progress Note ---
Assessment/Plan Assessment/Plan Assessment/Plan # Pancreatic cancer, non-resectable, based on patient's info. Had a Abdominal pelvis CT reviewed 1. Appropriately positioned percutaneous left biliary drain with mild intrahepatic biliary ductal dilatation. 2. Ill-defined pancreatic head/proximal body mass, likely corresponding to stated history of pancreatic neoplasm. Please note evaluation of size and vascular involvement of pancreatic masses is incomplete prior examinations and without multiphasic pancreatic protocol. 3. 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 She has already started rx. --> gi recs noted No plans for GI procedures at this time --> surgical recommendations, no interventions at this time --> likely to continue chemo and XRT as needed with Dr. Elias Bernal (has received one chemo session) --> CA 19.9 688, in general with this presentation, poor prognosis --> if doesn't get chemo soon, likely to deteriorate, may be hospice candidate --> DW Dr. Shyann Bernal on 02/03/19 # Portal vein thrombosis with abd pain (MAY BE due to tumor encasement) --> may be contributor for abdominal pain --> appears to be chronic portal vein thrombosis on imaging --> minimize pain meds as much as possible --> started on lovenox, okay to transition to noac once discharged # Thrombocytosis, is secondary to underlying process --> currently improved --> less likely myeloproliferative --> smear has been reviewed --> trend 700-->800-->920-->1040k-->997-->304-->471 --> consider asa if worsens, doesn't need leukapheresis # Anemia of myelosuppressive chemo --> okay to continue on chemo at this time --> epo as stimulating factor if drops --> dw patient risks of dvt/VTE --> hgb trend: 9.1 # Leukocytosis is likely due to pna --> agree to trend, improved --> abx as per id --> wbc trend 22-->20-->18k-->34k-->22-->19k-->21k-->20-->16.3 -->20--> 11.2 --> ceftriaxone # Transaminitis --> Trend LFTs --> per gi --> advance diet as tolerated # Dvt ppx LOVENOX 1mg/sq bid Appreciate consultation and tesha RN Subjective Allergies: Coded Allergies: No Known Allergies (Unverified , 01/12/19) Subjective 01/13: no events to report, no f/c, no night sweats 01/14: no bleeding, on meds, ivf 01/15: no major changes, dw patient, some minor abd pain 01/18: no major events, drain is to gravity, seen by surg, no bleeidng 01/19: awake, alert, getting dressed this am, labs noted 01/20: no events, no bleeding reported, no major changes, no fc 01/21: appears on ct scan that she has a chronic portal vein thrombosis, reviewed results with rad 01/23: to be transferred to [facility] for sob, and also okay with snf placement 01/24: no major changes, no bleeding reported, no f/c 01/25: no events, no complaints in the am, sleeping, no chills 01/26: no bleeding noted, no f/c, no night sweats 02/03: awake and alert, wbc 16, on ceftriaxone, h/h stable 02/04: no events, no bleeding, labs noted, feeling tired this am 02/05: no bleeding no fevers or chills, no night sweats 02/07: no events to report, no bleeding, 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, have dw rn would be difficult 02/08: awake and alert, no acute events, h/h stable Objective Objective Current Medications Medications (Trade) Dose Ordered Sig/Zuleima Route PRN Reason Start Time Stop Time Status Last Admin Dose Admin Acetaminophen (Tylenol) 650 mg Q8H PRN ORAL Mild Pain/Temp > 100.5 01/12/19 17:30 02/11/19 17:29 02/08/19 09:46 Bisacodyl (Dulcolax) 10 mg BIDPRN PRN RECTAL Constipation 01/16/19 07:45 02/15/19 07:44 01/19/19 18:34 Ceftriaxone Sodium 1 gm/ Dextrose 55 ml @ 110 mls/hr Q24H IVPB 01/30/19 22:00 02/10/19 21:59 02/07/19 22:10 Dextrose (Dextrose 50%) 25 ml Q30M PRN IV Hypoglycemia 01/12/19 13:45 02/11/19 13:44 Dextrose (Dextrose 50%) 50 ml Q30M PRN IV Hypoglycemia 01/12/19 13:45 02/11/19 13:44 Enoxaparin Sodium (Lovenox) 60 mg Q12HR@0600,1800 SUBQ 01/20/19 18:00 02/19/19 17:59 02/08/19 05:33 Ergocalciferol (Drisdol) 50,000 intlu ONCE A WEEK ORAL 02/05/19 18:00 03/07/19 17:59 02/05/19 18:00 Fentanyl (Duragesic) 1 patch Q72H TDERMAL 01/25/19 12:00 02/12/19 11:59 02/06/19 12:58 Gabapentin (Neurontin) 300 mg THREE TIMES A DAY ORAL 01/19/19 18:00 02/18/19 17:59 02/08/19 09:42 Hydromorphone HCl (Dilaudid) 4 mg Q4H PRN ORAL Severe Breakthru Pain (>7) 02/06/19 15:15 02/13/19 15:14 02/07/19 10:01 Magnesium Sulfate 100 ml @ 100 mls/hr Q1H IVPB 02/08/19 09:30 02/08/19 15:29 02/08/19 10:03 Methylnaltrexone [place] (Relistor) 12 mg ONCE A WEEK SUBQ 02/01/19 09:00 03/03/19 08:59 Metronidazole 100 ml @ 100 mls/hr Q8HR IVPB 01/30/19 15:30 02/10/19 15:29 02/08/19 05:32 Miscellaneous Medication (fentaNYL Destruction) 1 ea Q72H MISC 01/25/19 11:59 02/24/19 11:58 02/06/19 11:59 Naloxone HCl (Narcan) 0.1 mg Q5M PRN IV Sedation scale 3 or 4 01/24/19 09:00 02/23/19 08:54 Ondansetron HCl (Zofran) 4 mg Q6H PRN IVP Nausea & Vomiting 01/12/19 13:45 02/11/19 13:44 02/07/19 17:08 Pantoprazole (Protonix) 40 mg EVERY 12 HOURS ORAL 01/27/19 21:00 02/26/19 20:59 02/08/19 09:43 Polyethylene Glycol (Miralax) 17 gm BEDTIME PRN ORAL constipation 01/22/19 10:30 02/15/19 20:59 Potassium Chloride (K-Dur) 40 meq TID ORAL 02/06/19 09:00 02/26/19 09:59 02/08/19 09:42 Simethicone (Mylicon) 80 mg BIDPRN PRN ORAL gas 01/18/19 21:45 02/17/19 21:44 02/08/19 01:22 Spironolactone (Aldactone) 25 mg DAILY ORAL 02/08/19 09:30 03/10/19 09:29 02/08/19 10:03 Zolpidem Tartrate (Ambien) 5 mg HSPRN PRN ORAL Insomnia 02/03/19 21:15 02/10/19 21:14 02/08/19 01:27 Last 24 Hour Vital Signs Date Time Temp Pulse Resp B/P (MAP) Pulse Ox O2 Delivery O2 Flow Rate FiO2 02/08/19 08:00 98.1 92 14 114/78 (90) 98 02/08/19 04:00 98.0 72 20 104/65 (78) 96 02/08/19 00:00 97.6 76 20 106/70 (82) 97 02/07/19 20:04 Room Air 02/07/19 20:00 97.2 76 18 102/65 (77) 98 02/07/19 16:00 98.9 85 18 105/71 (82) 95 02/07/19 09:00 Room Air 02/07/19 08:00 97.0 99 18 105/72 (83) 93 02/07/19 00:00 97.6 80 20 129/72 (91) 97 02/06/19 20:36 Room Air 02/06/19 20:00 96.5 69 21 123/80 (94) 02/06/19 16:00 98.1 83 19 112/71 (85) 98 02/06/19 13:13 96.9 02/06/19 13:13 96.9 02/06/19 12:04 96.9 88 16 132/75 (94) 96 Intake and Output 02/07/19 02/08/19 19:00 07:00 Intake Total 680 ml 155 ml Output Total 375 ml Balance 680 ml -220 ml IV Total 155 ml Other 680 ml Other 375 ml # Voids 3 # Bowel Movements 3 Labs Test 02/06/19 05:45 02/07/19 05:30 02/08/19 05:35 White Blood Count 16.5 K/UL (4.8-10.8) 13.5 K/UL (4.8-10.8) 11.2 K/UL (4.8-10.8) Red Blood Count 2.89 M/UL (4.20-5.40) 2.95 M/UL (4.20-5.40) 2.95 M/UL (4.20-5.40) Hemoglobin 9.1 G/DL (12.0-16.0) 9.3 G/DL (12.0-16.0) 9.1 G/DL (12.0-16.0) Hematocrit 27.2 % (37.0-47.0) 26.7 % (37.0-47.0) 27.1 % (37.0-47.0) Mean Corpuscular Volume 94 FL (80-99) 91 FL (80-99) 92 FL (80-99) Mean Corpuscular Hemoglobin 31.4 PG (27.0-31.0) 31.5 PG (27.0-31.0) 31.0 PG (27.0-31.0) Mean Corpuscular Hemoglobin Concent 33.3 G/DL (32.0-36.0) 34.8 G/DL (32.0-36.0) 33.8 G/DL (32.0-36.0) Red Cell Distribution Width 15.4 % (11.6-14.8) 14.2 % (11.6-14.8) 13.8 % (11.6-14.8) Platelet Count 401 K/UL (150-450) 421 K/UL (150-450) 471 K/UL (150-450) Mean Platelet Volume 5.9 FL (6.5-10.1) 5.7 FL (6.5-10.1) 5.6 FL (6.5-10.1) Neutrophils (%) (Auto) 80.7 % (45.0-75.0) 78.4 % (45.0-75.0) 75.5 % (45.0-75.0) Lymphocytes (%) (Auto) 7.5 % (20.0-45.0) 8.3 % (20.0-45.0) 10.6 % (20.0-45.0) Monocytes (%) (Auto) 9.4 % (1.0-10.0) 10.2 % (1.0-10.0) 10.2 % (1.0-10.0) Eosinophils (%) (Auto) 1.0 % (0.0-3.0) 1.7 % (0.0-3.0) 2.0 % (0.0-3.0) Basophils (%) (Auto) 1.3 % (0.0-2.0) 1.4 % (0.0-2.0) 1.7 % (0.0-2.0) Sodium Level 132 MMOL/L (136-145) 139 MMOL/L (136-145) 140 MMOL/L (136-145) Potassium Level 3.3 MMOL/L (3.5-5.1) 3.6 MMOL/L (3.5-5.1) 3.4 MMOL/L (3.5-5.1) Chloride Level 101 MMOL/L (98-107) 106 MMOL/L (98-107) 107 MMOL/L (98-107) Carbon Dioxide Level 28 MMOL/L (21-32) 25 MMOL/L (21-32) 25 MMOL/L (21-32) Anion Gap 3 mmol/L (5-15) 8 mmol/L (5-15) 8 mmol/L (5-15) Blood Urea Nitrogen 6 mg/dL (7-18) 6 mg/dL (7-18) 6 mg/dL (7-18) Creatinine 0.9 MG/DL (0.55-1.30) 0.9 MG/DL (0.55-1.30) 0.9 MG/DL (0.55-1.30) Estimat Glomerular Filtration Rate > 60 mL/min (>60) > 60 mL/min (>60) > 60 mL/min (>60) Glucose Level 99 MG/DL (74-106) 88 MG/DL (74-106) 87 MG/DL (74-106) Calcium Level 7.2 MG/DL (8.5-10.1) 7.2 MG/DL (8.5-10.1) 7.0 MG/DL (8.5-10.1) Phosphorus Level 3.4 MG/DL (2.5-4.9) Magnesium Level 1.0 MG/DL (1.8-2.4) Total Bilirubin 0.3 MG/DL (0.2-1.0) Aspartate Amino Transf (AST/SGOT) 13 U/L (15-37) Alanine Aminotransferase (ALT/SGPT) 8 U/L (12-78) Alkaline Phosphatase 126 U/L (46-116) Total Protein 5.3 G/DL (6.4-8.2) Albumin 1.3 G/DL (3.4-5.0) Globulin 4.0 g/dL Albumin/Globulin Ratio 0.3 (1.0-2.7) Height (Feet): 5 Height (Inches): 3.00 Weight (Pounds): 133 Objective Gen: nad Pulm: Ctab Cardiovascular: RSR Abdomen: soft, flat, non-tender, present bowel sounds ext-int drain Extremities: no edema, no tenderness, no cyanosis Roberto Davidson MD Feb 08, 2019 10:23
--- NOTE | 2019-02-08 10:40 | Nephrology Progress Note ---
Assessment/Plan Problem List: (1) Electrolyte abnormality (2) Pancreatic cancer (3) Biliary drain displacement (4) Abdominal pain (5) Malnutrition Assessment HypoKalemia HypoNatremia Abdominal pain. Nausea. Vomiting. UTI. Pancreatic cancer. Biliary drain displacement Malnutrition. Anemia Plan IV mag Low dose aldactone K mag phos supplement as needed, monitor lytes start PO Folic acid FDC plan?? Subjective ROS Limited/Unobtainable: No Constitutional: Reports: malaise, weakness Objective Objective Last 24 Hour Vital Signs Date Time Temp Pulse Resp B/P (MAP) Pulse Ox O2 Delivery O2 Flow Rate FiO2 02/08/19 08:00 98.1 92 14 114/78 (90) 98 02/08/19 04:00 98.0 72 20 104/65 (78) 96 02/08/19 00:00 97.6 76 20 106/70 (82) 97 02/07/19 20:04 Room Air 02/07/19 20:00 97.2 76 18 102/65 (77) 98 02/07/19 16:00 98.9 85 18 105/71 (82) 95 Intake and Output 02/07/19 02/08/19 19:00 07:00 Intake Total 680 ml 155 ml Output Total 375 ml Balance 680 ml -220 ml IV Total 155 ml Other 680 ml Other 375 ml # Voids 3 # Bowel Movements 3 Laboratory Tests 02/08/19 05:35: White Blood Count 11.2H, Red Blood Count 2.95L, Hemoglobin 9.1L, Hematocrit 27.1L, Mean Corpuscular Volume 92, Mean Corpuscular Hemoglobin 31.0, Mean Corpuscular Hemoglobin Concent 33.8, Red Cell Distribution Width 13.8, Platelet Count 471H, Mean Platelet Volume 5.6L, Neutrophils (%) (Auto) 75.5H, Lymphocytes (%) (Auto) 10.6L, Monocytes (%) (Auto) 10.2H, Eosinophils (%) (Auto ) 2.0, Basophils (%) (Auto) 1.7, Sodium Level 140, Potassium Level 3.4L, Chloride Level 107, Carbon Dioxide Level 25, Anion Gap 8, Blood Urea Nitrogen 6L , Creatinine 0.9, Estimat Glomerular Filtration Rate > 60, Glucose Level 87, Calcium Level 7.0L, Phosphorus Level 3.4, Magnesium Level 1.0L, Total Bilirubin 0.3, Aspartate Amino Transf (AST/SGOT) 13L, Alanine Aminotransferase (ALT/SGPT) 8L, Alkaline Phosphatase 126H, Total Protein 5.3L, Albumin 1.3L, Globulin 4.0, Albumin/Globulin Ratio 0.3L Height (Feet): 5 Height (Inches): 3.00 Weight (Pounds): 133 General Appearance: no apparent distress Objective no change Kapil Turcios MD Feb 08, 2019 10:40
[2019-02-08 12:00] VITALS: BP 114/84
--- NOTE | 2019-02-08 12:27 | Surgery Progress Note ---
Surgery Progress Note Subjective Symptoms: improved Additional Comments labs improved no n/v/f/c Objective Last 24 Hour Vital Signs Date Time Temp Pulse Resp B/P (MAP) Pulse Ox O2 Delivery O2 Flow Rate FiO2 02/08/19 09:00 Room Air 02/08/19 08:00 98.1 92 14 114/78 (90) 98 02/08/19 04:00 98.0 72 20 104/65 (78) 96 02/08/19 00:00 97.6 76 20 106/70 (82) 97 02/07/19 20:04 Room Air 02/07/19 20:00 97.2 76 18 102/65 (77) 98 02/07/19 16:00 98.9 85 18 105/71 (82) 95 I&O Intake and Output 02/07/19 02/08/19 19:00 07:00 Intake Total 680 ml 155 ml Output Total 375 ml Balance 680 ml -220 ml IV Total 155 ml Other 680 ml Other 375 ml # Voids 3 # Bowel Movements 3 Dressing: other Wound: other Drains: other Cardiovascular: RSR Respiratory: clear Abdomen: soft, non-tender, present bowel sounds Extremities: no edema, no tenderness, no cyanosis Laboratory Tests Test 02/08/19 05:35 White Blood Count 11.2 K/UL (4.8-10.8) H Red Blood Count 2.95 M/UL (4.20-5.40) L Hemoglobin 9.1 G/DL (12.0-16.0) L Hematocrit 27.1 % (37.0-47.0) L Mean Corpuscular Volume 92 FL (80-99) Mean Corpuscular Hemoglobin 31.0 PG (27.0-31.0) Mean Corpuscular Hemoglobin Concent 33.8 G/DL (32.0-36.0) Red Cell Distribution Width 13.8 % (11.6-14.8) Platelet Count 471 K/UL (150-450) H Mean Platelet Volume 5.6 FL (6.5-10.1) L Neutrophils (%) (Auto) 75.5 % (45.0-75.0) H Lymphocytes (%) (Auto) 10.6 % (20.0-45.0) L Monocytes (%) (Auto) 10.2 % (1.0-10.0) H Eosinophils (%) (Auto) 2.0 % (0.0-3.0) Basophils (%) (Auto) 1.7 % (0.0-2.0) Sodium Level 140 MMOL/L (136-145) Potassium Level 3.4 MMOL/L (3.5-5.1) L Chloride Level 107 MMOL/L (98-107) Carbon Dioxide Level 25 MMOL/L (21-32) Anion Gap 8 mmol/L (5-15) Blood Urea Nitrogen 6 mg/dL (7-18) L Creatinine 0.9 MG/DL (0.55-1.30) Estimat Glomerular Filtration Rate > 60 mL/min (>60) Glucose Level 87 MG/DL (74-106) Calcium Level 7.0 MG/DL (8.5-10.1) L Phosphorus Level 3.4 MG/DL (2.5-4.9) Magnesium Level 1.0 MG/DL (1.8-2.4) L Total Bilirubin 0.3 MG/DL (0.2-1.0) Aspartate Amino Transf (AST/SGOT) 13 U/L (15-37) L Alanine Aminotransferase (ALT/SGPT) 8 U/L (12-78) L Alkaline Phosphatase 126 U/L (46-116) H Total Protein 5.3 G/DL (6.4-8.2) L Albumin 1.3 G/DL (3.4-5.0) L Globulin 4.0 g/dL Albumin/Globulin Ratio 0.3 (1.0-2.7) L Plan Problems: (1) Abdominal pain Assessment & Plan: 63-year-old female patient with history of recently diagnosed pancreatic cancer in November 2018 presented to the emergency room at [facility] with complaint of abdominal pain for approximately 1 hour. Patient is status post a biliary drain placement at [facility] approximately 1 week ago. She reported that she had a first treatment of chemotherapy this past Thursday. The patient denied any nausea vomiting, denies any constipation or diarrhea. She states her pain medication was unable to relieve her pain. no fever or chills. labs as below. C Tnoted. surgery called to assist with care and management. tube checked Impression: Diffusely abnormal bowel uptake. Given findings on recent CT scan, this most likely represents enteritis, most likely infectious. Abnormal uptake in the face or upper neck to the left of midline, exact location uncertain. Consider neck CT for better characterization Mildly prominent pulmonary uptake, significance doubted okay for diet tube to drain IV abx d/c planning for SNF f/u with pcp / onc outpatient stable otherwise from surgical standpoint no acute surgical intervention planned Probably has extensive tumor burden given interventions and findings noted. No surgical recommendation at this time. Possible that fluid collection in case in the abdomen infected but to operate on this would be ill advised at this time and patient's current condition. Continue with antibiotics iv fluids trend labs will monitor and follow with exam thank you (2) Biliary drain displacement Assessment & Plan: Daughter was able to inform me with a lot of history. Seems patient unresectable initially and attempted biliary drain placed endoscopically but unsuccessful. A external biliary drain was placed by radiology. Would patient was getting her Port-A-Cath placed a another radiologist felt he could place a internal/external biliary drain and he was able to successfully place a internal/external biliary drain. Had the trade Since. Fell off and she has been without it to drainage recently. In evaluating the trade she has some bilious output from the drain and on imaging drain looks to be appropriately placed. Labs reviewed stable. drain placed to gravity as leaking Drain putting out a ton since placed on 2 bag IMPRESSION: 1. Appropriately positioned percutaneous left biliary drain with mild intrahepatic biliary ductal dilatation. 2. Ill-defined pancreatic head/proximal body mass, likely corresponding to stated history of pancreatic neoplasm. Please note evaluation of size and vascular involvement of pancreatic masses is incomplete prior examinations and without multiphasic pancreatic protocol. 3. 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 SMV confluence is not visualized. 4. Color wall thickening with pericholecystic fluid; in the absence of distended gallbladder, these findings are critical for acute pancreatitis and clinical correlation is recommended. Transhepatic biliary drain noted. 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 Abnormal liver with area of peripheral hypoechogenicity along the posterior right lobe margin. Suggest further evaluation with contrast CT. Obscured pancreas and aorta due to bowel gas. . Interval development of moderate small bowel dilatation. Transition to relatively decompressed terminal ileum demonstrated indicating this is probably a mechanical bowel obstruction. Pneumatosis suspected within one of the proximal small bowel segments in the upper abdomen. No evidence of perforation. Development of multiloculated ascites with prominent collections contiguous with the caudal end of the right lobe of the liver capsule, Morison's pouch and inferior to the right kidney. Other generalized mild ascites noted as well. Internal/external transhepatic biliary drainage catheter in good position. No imaging evidence for catheter malfunction or biliary obstruction. CT noted. likely internal leakage from internal external drain as it was noted to be backing put few days ago hence placed on drainage bag recommend outpatient f/u with oncology and her GI at primary facility to discuss placement of internal metallic larger drain and remove internal / external drain s/p abd drain placement micro noted labs improved on abx s/p new drain 02/01/19 - removed 02/07 / d/c to SNF. f/u with outpatient onc f/u with outpatient GI for consideration of metallic biliary drain now that she has internal external thank you (3) Pancreatic cancer Assessment & Plan: Pancreatic cancer, non-resectable, based on patient's info. Had a Abdominal pelvis CT reviewed 1. Appropriately positioned percutaneous left biliary drain with mild intrahepatic biliary ductal dilatation. 2. Ill- defined pancreatic head/proximal body mass, likely corresponding to stated history of pancreatic neoplasm. Please note evaluation of size and vascular involvement of pancreatic masses is incomplete prior examinations and without multiphasic pancreatic protocol. 3. 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 She has already started rx Jim Gates Feb 08, 2019 12:27
--- NOTE | 2019-02-08 12:52 | Infectious Diseases Prog Note ---
Assessment/Plan Assessment/Plan Fever 01/13, SP Leukocytosis, improving 01/14 bcx ng tumor related? Ileus related? biloma related? atelectasis? 01/24 Indium scan: Diffusely abnormal bowel uptake. Given findings on recent CT scan, this most likely represents enteritis, most likely infectious. Abnormal uptake in the face or upper neck to the left of midline, exact location uncertain. Consider neck CT for better characterization. Mildly prominent pulmonary uptake, significance doubted. On further review the images, activity in the right midabdomen is greater than would be accounted for acute spine hepatic activity, and there is significant activity inferior to the right lobe of the liver in the anterior abdomen. This correlates with a large loculated fluid collection demonstrated on recent CT scan of 01/20/2019, and may indicate infection of this collection. The smaller subcapsular collection in the posterior right hepatic lobe is difficult to differentiate from normal liver activity on this exam, so it is not possible to assess for the presence or absence of abnormal activity in this. 01/27 US: Aspiration of posterior hepatic subcapsular collection, yielding serous fluid which does not appear grossly infected. No drainage catheter placed , therefore, but a specimen was sent to the lab for analysis. Placement of 8.5 Ivorian pigtail drainage catheter in anterior right lower quadrant intraperitoneal collection. This yielded borderline purulent appearing body brown fluid. Specimen sent to lab for analysis. 01/27 fluid: 76K WBC(92% PMN). cx: 3+ E coli 02/01: Successful ultrasound-guided placement of a percutaneous drain within a fluid collection that was previously infected and previously addressed by a percutaneous drain which had accidentally fallen out yesterday. PNA, CAP? -CXR: Patchy consolidation in the right lower lung, concerning for pneumonia. Mild pulmonary vascular congestion. -flu swab negative urine legionella antigen negative Abdominal pain Pancreatitis? lipase negative 01/12 CT abd/p: Appropriately positioned percutaneous left biliary drain with mild intrahepatic biliary ductal dilatation. Ill-defined pancreatic head/ proximal body mass, likely corresponding to stated history of pancreatic neoplasm. Please note evaluation of size and vascular involvement of pancreatic masses is incomplete prior examinations and without multiphasic pancreatic protocol. 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 SMV confluence is not visualized. Gallbladder wall thickening with pericholecystic fluid; in the absence of distended gallbladder, these findings are critical for acute pancreatitis and clinical correlation is recommended. 01/19 US Abd: Transhepatic biliary drain noted. 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 Abnormal liver with area of peripheral hypoechogenicity along the posterior right lobe margin. Suggest further evaluation with contrast CT. Obscured pancreas and aorta due to bowel gas. Trace ascites 01/20 CT A/P: Interval development of moderate small bowel dilatation. Transition to relatively decompressed terminal ileum demonstrated indicating this is probably a mechanical bowel obstruction. Pneumatosis suspected within one of the proximal small bowel segments in the upper abdomen. No evidence of perforation. Development of multiloculated ascites with prominent collections contiguous with the caudal end of the right lobe of the liver capsule, Morison's pouch and inferior to the right kidney. Other generalized mild ascites noted as well. Internal/external transhepatic biliary drainage catheter in good position. No imaging evidence for catheter malfunction or biliary obstruction. Right basilar consolidation versus atelectasis. Correlate for pneumonia. Trace bilateral pleural effusions. Anasarca recently diagnosed pancreatic CA 11/2018 - s/p biliary drain 1 week [facility] at [facility] -sp 1st chemotherapy treatment 01/10/19 tobacco abuse Plan: Ceftriaxone, flagyl #10...recommend repeat imaging in about a week to determine if fluid collection still persistent. 01/30 SP Meropenem #6 01/25 SP Ceftriaxone #3, flagyl #1, vancomycin #11 01/22 SP Azithromycin #7 01/23 SP Zosyn #8 01/17 DC Tamiflu #2 -Monitor CBC/CMP, temperatures -aspiration precautions Thank you for this consultation. Will continue to follow along with you. Subjective Allergies: Coded Allergies: No Known Allergies (Unverified , 01/12/19) Subjective Afebrile. RA. WBC better Pt feels weak Soft bowel movement per nurse Objective Vital Signs Last 24 Hour Vital Signs Date Time Temp Pulse Resp B/P (MAP) Pulse Ox O2 Delivery O2 Flow Rate FiO2 02/08/19 12:00 97.9 83 18 114/84 (94) 97 02/08/19 09:00 Room Air 02/08/19 08:00 98.1 92 14 114/78 (90) 98 02/08/19 04:00 98.0 72 20 104/65 (78) 96 02/08/19 00:00 97.6 76 20 106/70 (82) 97 02/07/19 20:04 Room Air 02/07/19 20:00 97.2 76 18 102/65 (77) 98 02/07/19 16:00 98.9 85 18 105/71 (82) 95 Height (Feet): 5 Height (Inches): 3.00 Weight (Pounds): 133 Objective Gen: NAD. calm CV: RRR. no rubs Resp: RRR. unlabored. Abd: hypoactive BS+. soft Ext: no edema Neuro: alert. Laboratory Tests Test 02/08/19 05:35 White Blood Count 11.2 K/UL (4.8-10.8) H Red Blood Count 2.95 M/UL (4.20-5.40) L Hemoglobin 9.1 G/DL (12.0-16.0) L Hematocrit 27.1 % (37.0-47.0) L Mean Corpuscular Volume 92 FL (80-99) Mean Corpuscular Hemoglobin 31.0 PG (27.0-31.0) Mean Corpuscular Hemoglobin Concent 33.8 G/DL (32.0-36.0) Red Cell Distribution Width 13.8 % (11.6-14.8) Platelet Count 471 K/UL (150-450) H Mean Platelet Volume 5.6 FL (6.5-10.1) L Neutrophils (%) (Auto) 75.5 % (45.0-75.0) H Lymphocytes (%) (Auto) 10.6 % (20.0-45.0) L Monocytes (%) (Auto) 10.2 % (1.0-10.0) H Eosinophils (%) (Auto) 2.0 % (0.0-3.0) Basophils (%) (Auto) 1.7 % (0.0-2.0) Sodium Level 140 MMOL/L (136-145) Potassium Level 3.4 MMOL/L (3.5-5.1) L Chloride Level 107 MMOL/L (98-107) Carbon Dioxide Level 25 MMOL/L (21-32) Anion Gap 8 mmol/L (5-15) Blood Urea Nitrogen 6 mg/dL (7-18) L Creatinine 0.9 MG/DL (0.55-1.30) Estimat Glomerular Filtration Rate > 60 mL/min (>60) Glucose Level 87 MG/DL (74-106) Calcium Level 7.0 MG/DL (8.5-10.1) L Phosphorus Level 3.4 MG/DL (2.5-4.9) Magnesium Level 1.0 MG/DL (1.8-2.4) L Total Bilirubin 0.3 MG/DL (0.2-1.0) Aspartate Amino Transf (AST/SGOT) 13 U/L (15-37) L Alanine Aminotransferase (ALT/SGPT) 8 U/L (12-78) L Alkaline Phosphatase 126 U/L (46-116) H Total Protein 5.3 G/DL (6.4-8.2) L Albumin 1.3 G/DL (3.4-5.0) L Globulin 4.0 g/dL Albumin/Globulin Ratio 0.3 (1.0-2.7) L Current Medications Medications (Trade) Dose Ordered Sig/Zuleima Route PRN Reason Start Time Stop Time Status Last Admin Dose Admin Acetaminophen (Tylenol) 650 mg Q8H PRN ORAL Mild Pain/Temp > 100.5 01/12/19 17:30 02/11/19 17:29 02/08/19 09:46 Bisacodyl (Dulcolax) 10 mg BIDPRN PRN RECTAL Constipation 01/16/19 07:45 02/15/19 07:44 01/19/19 18:34 Ceftriaxone Sodium 1 gm/ Dextrose 55 ml @ 110 mls/hr Q24H IVPB 01/30/19 22:00 02/10/19 21:59 02/07/19 22:10 Dextrose (Dextrose 50%) 25 ml Q30M PRN IV Hypoglycemia 01/12/19 13:45 02/11/19 13:44 Dextrose (Dextrose 50%) 50 ml Q30M PRN IV Hypoglycemia 01/12/19 13:45 02/11/19 13:44 Enoxaparin Sodium (Lovenox) 60 mg Q12HR@0600,1800 SUBQ 01/20/19 18:00 02/19/19 17:59 02/08/19 05:33 Ergocalciferol (Drisdol) 50,000 intlu ONCE A WEEK ORAL 02/05/19 18:00 03/07/19 17:59 02/05/19 18:00 Fentanyl (Duragesic) 1 patch Q72H TDERMAL 01/25/19 12:00 02/12/19 11:59 02/06/19 12:58 Gabapentin (Neurontin) 300 mg THREE TIMES A DAY ORAL 01/19/19 18:00 02/18/19 17:59 02/08/19 09:42 Hydromorphone HCl (Dilaudid) 4 mg Q4H PRN ORAL Severe Breakthru Pain (>7) 02/06/19 15:15 02/13/19 15:14 02/07/19 10:01 Magnesium Sulfate 100 ml @ 100 mls/hr Q1H IVPB 02/08/19 09:30 02/08/19 15:29 02/08/19 11:50 Methylnaltrexone [place] (Relistor) 12 mg ONCE A WEEK SUBQ 02/01/19 09:00 03/03/19 08:59 Metronidazole 100 ml @ 100 mls/hr Q8HR IVPB 01/30/19 15:30 02/10/19 15:29 02/08/19 05:32 Miscellaneous Medication (fentaNYL Destruction) 1 ea Q72H MISC 01/25/19 11:59 02/24/19 11:58 02/06/19 11:59 Naloxone HCl (Narcan) 0.1 mg Q5M PRN IV Sedation scale 3 or 4 01/24/19 09:00 02/23/19 08:54 Ondansetron HCl (Zofran) 4 mg Q6H PRN IVP Nausea & Vomiting 01/12/19 13:45 02/11/19 13:44 02/07/19 17:08 Pantoprazole (Protonix) 40 mg EVERY 12 HOURS ORAL 01/27/19 21:00 02/26/19 20:59 02/08/19 09:43 Polyethylene Glycol (Miralax) 17 gm BEDTIME PRN ORAL constipation 01/22/19 10:30 02/15/19 20:59 Potassium Chloride (K-Dur) 40 meq TID ORAL 02/06/19 09:00 02/26/19 09:59 02/08/19 09:42 Simethicone (Mylicon) 80 mg BIDPRN PRN ORAL gas 01/18/19 21:45 02/17/19 21:44 02/08/19 01:22 Spironolactone (Aldactone) 25 mg DAILY ORAL 02/08/19 09:30 03/10/19 09:29 02/08/19 10:03 Zolpidem Tartrate (Ambien) 5 mg HSPRN PRN ORAL Insomnia 02/03/19 21:15 02/10/19 21:14 02/08/19 01:27 Catalina Kirby MD Feb 08, 2019 12:52
--- NOTE | 2019-02-08 13:50 | NUR ---
PT NOTE Attempted to see patient for PT treatment. Patient declining to participate due to c/o pain. Presley BLOOD notified, will follow up tomorrow.
[2019-02-08] MEDS ORDERED: NS 500ML ONE (14:00)
[2019-02-08] MEDS ORDERED: Tubing IV Secondary IV ONE (14:00)
--- NOTE | 2019-02-08 14:20 | General Progress Note ---
Assessment/Plan Problem List: (1) SOB (shortness of breath) ICD Codes: R06.02 - Shortness of breath SNOMED: 835806955 (2) Nausea & vomiting ICD Codes: R11.2 - Nausea with vomiting, unspecified SNOMED: 90821679 (3) Malnutrition ICD Codes: E46 - Unspecified protein-calorie malnutrition SNOMED: 66164267 (4) UTI (urinary tract infection) ICD Codes: N39.0 - Urinary tract infection, site not specified SNOMED: 64171780 (5) Abdominal pain ICD Codes: R10.9 - Unspecified abdominal pain SNOMED: 60560712 (6) Biliary drain displacement ICD Codes: T85.520A - Displacement of bile duct prosthesis, initial encounter SNOMED: 113757695 (7) Pancreatic cancer ICD Codes: C25.9 - Malignant neoplasm of pancreas, unspecified SNOMED: 848279364 Status: unchanged Assessment/Plan: pt diet pain control abx cbc bmp am dc plan snf Subjective Constitutional: Reports: weakness Allergies: Coded Allergies: No Known Allergies (Unverified , 01/12/19) All Systems: reviewed and negative except above Subjective calm sleepy Objective Last 24 Hour Vital Signs Date Time Temp Pulse Resp B/P (MAP) Pulse Ox O2 Delivery O2 Flow Rate FiO2 02/08/19 12:00 97.9 83 18 114/84 (94) 97 02/08/19 09:00 Room Air 02/08/19 08:00 98.1 92 14 114/78 (90) 98 02/08/19 04:00 98.0 72 20 104/65 (78) 96 02/08/19 00:00 97.6 76 20 106/70 (82) 97 02/07/19 20:04 Room Air 02/07/19 20:00 97.2 76 18 102/65 (77) 98 02/07/19 16:00 98.9 85 18 105/71 (82) 95 Intake and Output 02/07/19 02/08/19 19:00 07:00 Intake Total 680 ml 155 ml Output Total 375 ml Balance 680 ml -220 ml IV Total 155 ml Other 680 ml Other 375 ml # Voids 3 # Bowel Movements 3 Laboratory Tests 02/08/19 05:35: White Blood Count 11.2H, Red Blood Count 2.95L, Hemoglobin 9.1L, Hematocrit 27.1L, Mean Corpuscular Volume 92, Mean Corpuscular Hemoglobin 31.0, Mean Corpuscular Hemoglobin Concent 33.8, Red Cell Distribution Width 13.8, Platelet Count 471H, Mean Platelet Volume 5.6L, Neutrophils (%) (Auto) 75.5H, Lymphocytes (%) (Auto) 10.6L, Monocytes (%) (Auto) 10.2H, Eosinophils (%) (Auto ) 2.0, Basophils (%) (Auto) 1.7, Sodium Level 140, Potassium Level 3.4L, Chloride Level 107, Carbon Dioxide Level 25, Anion Gap 8, Blood Urea Nitrogen 6L , Creatinine 0.9, Estimat Glomerular Filtration Rate > 60, Glucose Level 87, Calcium Level 7.0L, Phosphorus Level 3.4, Magnesium Level 1.0L, Total Bilirubin 0.3, Aspartate Amino Transf (AST/SGOT) 13L, Alanine Aminotransferase (ALT/SGPT) 8L, Alkaline Phosphatase 126H, Total Protein 5.3L, Albumin 1.3L, Globulin 4.0, Albumin/Globulin Ratio 0.3L Height (Feet): 5 Height (Inches): 3.00 Weight (Pounds): 133 General Appearance: lethargic EENT: normal ENT inspection Neck: normal alignment Cardiovascular: normal peripheral pulses, normal rate, regular rhythm Respiratory/Chest: chest wall non-tender, lungs clear, normal breath sounds Abdomen: soft, decreased bowel sounds Extremities: normal inspection Edema: no edema noted Arm (L), no edema noted Arm (R), no edema noted Leg (L), no edema noted Leg (R), no edema noted Pedal (L), no edema noted Pedal (R), no edema noted Generalized Neurologic: motor weakness Skin: normal pigmentation, warm/dry Elvis Luke DO Feb 08, 2019 14:20
--- NOTE | 2019-02-08 14:23 | NUR ---
*-* INSURANCE *-* ALL AVAILABLE CLINICALS HAVE BEEN FAXED TO: REF#[id number] - FOR TRACKING PURPOSES THIS IS SHARED RISK NO CM ASSIGNED PH#[phone] FAX#[phone] [facility]CL[facility]ICALS [facility]#[id number] CM: TAMMY PH#[phone] EXT [phone] FAX#[phone] REVIEWS/CLINICALS
[2019-02-08 16:00] VITALS: BP 117/79
--- NOTE | 2019-02-08 16:40 | NUR ---
RHINOLOGISTSCALE TESTER SI: ABDOMINAL PAIN,LEUKOCYTOSIS T. 97.9 HR 92 RR 14 B/P 114/78 RA 98% WBC 11.2 K 3.4 MAGNESIUM 1.6 IS: CEFTRIAXONE IV FLAGYL IV PROTONIX IV LOVENOX SUBC MAGNESIUM IV PLACEMENT PENDING MED/SURG STATUS MESSAGE LEFT ON [employer] TO FOLLOW UP ON PLACEMENT. WAITING FOR CALL BACK.
--- NOTE | 2019-02-08 19:15 | NUR ---
HAND-OFF: Report given to CAITIE Nichols.
--- NOTE | 2019-02-08 19:40 | NUR ---
NURSE NOTES: Received report from CAITIE Sherwood. Pt resting in bed, on room air. IV site intact and patent. L side biliary drain intact and draining well. Commode and walker at bedside. Fall precaution maintained. No c/o pain/resp. distress noted at this time. Bed locked, lowest position, alarm on, side rails up x 2, call light within reach. Will continue to monitor.
[2019-02-08 20:00] VITALS: BP 113/65
[2019-02-08] MEDS: cefTRIAXone 1gm/D5W 55ml IVPB SCH ×2 (21:13)
[2019-02-09] VITALS: BP 117/69
[2019-02-09 04:00] VITALS: BP 113/68
[2019-02-09] MEDS: Enoxaparin 60mg Inj SUBQ SCH ×2 (05:11→17:10)
[2019-02-09] MEDS: metroNIDAZOLE 500mg Premix IVPB SCH ×3 (05:12→21:34)
[2019-02-09 06:17] LABS: BASOPHILS % (AUTO) 1.1 % (0.0-2.0); EOSINOPHILS % (AUTO) 1.7 % (0.0-3.0); HEMATOCRIT 32.3 % (37.0-47.0); HEMOGLOBIN 10.5 G/DL (12.0-16.0); LYMPHOCYTES % (AUTO) 10.3 % (20.0-45.0); MEAN CORPUSCULAR VOLUME 96 FL (80-99); NEUTROPHILS % (AUTO) 79.9 % (45.0-75.0); PLATELET COUNT 641 K/UL (150-450); RED BLOOD COUNT 3.39 M/UL (4.20-5.40); RED CELL DISTRIBUTION WIDTH 16.1 % (11.6-14.8); WHITE BLOOD COUNT 12.3 K/UL (4.8-10.8)
[2019-02-09 06:35] LABS: ANION GAP 7 mmol/L (5-15); BLOOD UREA NITROGEN 5 mg/dL (7-18); CALCIUM 7.8 MG/DL (8.5-10.1); CARBON DIOXIDE 25 MMOL/L (21-32); CHLORIDE 107 MMOL/L (98-107); POTASSIUM 4.8 MMOL/L (3.5-5.1); SODIUM 139 MMOL/L (136-145)
--- NOTE | 2019-02-09 07:14 | NUR ---
HAND-OFF: Report given to CAITIE Magallanes.
[2019-02-09 08:00] VITALS: BP 114/78
[2019-02-09] MEDS: Spironolactone 25mg tab ORAL SCH (08:03)
--- NOTE | 2019-02-09 08:36 | NUR ---
NURSE NOTES: PT AXOX4, CALM, RESTING IN BED. PT STATES SHE HAS NAUSEA. PAIN IS 5/10 BUT DOES NOT WANT PAIN MEDICATION AT THIS TIME. RN ADMINISTERED PRN ZOFRAN ORDERED. IN NO APPARENT DISTRESS AT THIS TIME. PER REPORT, PT HAS BOWEL MOVEMENTS THAT ARE A LYNDA OF LIQUID AND FORMED STOOL. DR LINDSEY MADE AWARE PREVIOUSLY. BEDSIDE COMMODE AT BEDSIDE. CALL LIGHT WITHIN REACH. WILL CONTINUE TO MONITOR.
--- NOTE | 2019-02-09 08:37 | Infectious Diseases Prog Note ---
Assessment/Plan Assessment/Plan Fever 01/13, SP Leukocytosis, fluctuating 01/14 bcx ng tumor related? Ileus related? biloma related? atelectasis? 01/24 Indium scan: Diffusely abnormal bowel uptake. Given findings on recent CT scan, this most likely represents enteritis, most likely infectious. Abnormal uptake in the face or upper neck to the left of midline, exact location uncertain. Consider neck CT for better characterization. Mildly prominent pulmonary uptake, significance doubted. On further review the images, activity in the right midabdomen is greater than would be accounted for acute spine hepatic activity, and there is significant activity inferior to the right lobe of the liver in the anterior abdomen. This correlates with a large loculated fluid collection demonstrated on recent CT scan of 01/20/2019, and may indicate infection of this collection. The smaller subcapsular collection in the posterior right hepatic lobe is difficult to differentiate from normal liver activity on this exam, so it is not possible to assess for the presence or absence of abnormal activity in this. 01/27 US: Aspiration of posterior hepatic subcapsular collection, yielding serous fluid which does not appear grossly infected. No drainage catheter placed , therefore, but a specimen was sent to the lab for analysis. Placement of 8.5 [place] pigtail drainage catheter in anterior right lower quadrant intraperitoneal collection. This yielded borderline purulent appearing body brown fluid. Specimen sent to lab for analysis. 01/27 fluid: 76K WBC(92% PMN). cx: 3+ E coli 02/01: Successful ultrasound-guided placement of a percutaneous drain within a fluid collection that was previously infected and previously addressed by a percutaneous drain which had accidentally fallen out yesterday. PNA, CAP? -CXR: Patchy consolidation in the right lower lung, concerning for pneumonia. Mild pulmonary vascular congestion. -flu swab negative urine legionella antigen negative Abdominal pain Pancreatitis? lipase negative 01/12 CT abd/p: Appropriately positioned percutaneous left biliary drain with mild intrahepatic biliary ductal dilatation. Ill-defined pancreatic head/ proximal body mass, likely corresponding to stated history of pancreatic neoplasm. Please note evaluation of size and vascular involvement of pancreatic masses is incomplete prior examinations and without multiphasic pancreatic protocol. 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 SMV confluence is not visualized. Gallbladder wall thickening with pericholecystic fluid; in the absence of distended gallbladder, these findings are critical for acute pancreatitis and clinical correlation is recommended. 01/19 US Abd: Transhepatic biliary drain noted. 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 Abnormal liver with area of peripheral hypoechogenicity along the posterior right lobe margin. Suggest further evaluation with contrast CT. Obscured pancreas and aorta due to bowel gas. Trace ascites 01/20 CT A/P: Interval development of moderate small bowel dilatation. Transition to relatively decompressed terminal ileum demonstrated indicating this is probably a mechanical bowel obstruction. Pneumatosis suspected within one of the proximal small bowel segments in the upper abdomen. No evidence of perforation. Development of multiloculated ascites with prominent collections contiguous with the caudal end of the right lobe of the liver capsule, Morison's pouch and inferior to the right kidney. Other generalized mild ascites noted as well. Internal/external transhepatic biliary drainage catheter in good position. No imaging evidence for catheter malfunction or biliary obstruction. Right basilar consolidation versus atelectasis. Correlate for pneumonia. Trace bilateral pleural effusions. 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 01/30 SP Meropenem #6 01/25 SP Ceftriaxone #3, flagyl #1, vancomycin #11 01/22 SP Azithromycin #7 01/23 SP Zosyn #8 01/17 DC Tamiflu #2 -Monitor CBC/CMP, temperatures -aspiration precautions discussed with RN Thank you for this consultation. Will continue to follow along with you. Subjective Allergies: Coded Allergies: No Known Allergies (Unverified , 01/12/19) Subjective Afebrile. RA. WBC slightly uptrend Objective Vital Signs Last 24 Hour Vital Signs Date Time Temp Pulse Resp B/P (MAP) Pulse Ox O2 Delivery O2 Flow Rate FiO2 02/09/19 04:00 97.8 70 18 113/68 (83) 96 02/09/19 00:00 97.5 73 16 117/69 (85) 97 02/08/19 20:00 97.5 73 16 113/65 (81) 97 02/08/19 20:00 Room Air 02/08/19 16:00 97.5 76 18 117/79 (92) 96 02/08/19 12:00 97.9 83 18 114/84 (94) 97 02/08/19 09:00 Room Air Height (Feet): 5 Height (Inches): 3.00 Weight (Pounds): 155 Objective Gen: NAD. calm CV: RRR. no rubs Resp: RRR. unlabored. Abd: hypoactive BS+. soft Ext: no edema Neuro: alert. Laboratory Tests Test 02/09/19 05:25 White Blood Count 12.3 K/UL (4.8-10.8) H Red Blood Count 3.39 M/UL (4.20-5.40) L Hemoglobin 10.5 G/DL (12.0-16.0) L Hematocrit 32.3 % (37.0-47.0) L Mean Corpuscular Volume 96 FL (80-99) Mean Corpuscular Hemoglobin 30.9 PG (27.0-31.0) Mean Corpuscular Hemoglobin Concent 32.4 G/DL (32.0-36.0) Red Cell Distribution Width 16.1 % (11.6-14.8) H Platelet Count 641 K/UL (150-450) H Mean Platelet Volume 5.8 FL (6.5-10.1) L Neutrophils (%) (Auto) 79.9 % (45.0-75.0) H Lymphocytes (%) (Auto) 10.3 % (20.0-45.0) L Monocytes (%) (Auto) 7.0 % (1.0-10.0) Eosinophils (%) (Auto) 1.7 % (0.0-3.0) Basophils (%) (Auto) 1.1 % (0.0-2.0) Sodium Level 139 MMOL/L (136-145) Potassium Level 4.8 MMOL/L (3.5-5.1) Chloride Level 107 MMOL/L (98-107) Carbon Dioxide Level 25 MMOL/L (21-32) Anion Gap 7 mmol/L (5-15) Blood Urea Nitrogen 5 mg/dL (7-18) L Creatinine 1.0 MG/DL (0.55-1.30) Estimat Glomerular Filtration Rate 56.2 mL/min (>60) Glucose Level 94 MG/DL (74-106) Calcium Level 7.8 MG/DL (8.5-10.1) L Current Medications Medications (Trade) Dose Ordered Sig/Zuleima Route PRN Reason Start Time Stop Time Status Last Admin Dose Admin Acetaminophen (Tylenol) 650 mg Q8H PRN ORAL Mild Pain/Temp > 100.5 01/12/19 17:30 02/11/19 17:29 02/09/19 05:10 Bisacodyl (Dulcolax) 10 mg BIDPRN PRN RECTAL Constipation 01/16/19 07:45 02/15/19 07:44 01/19/19 18:34 Ceftriaxone Sodium 1 gm/ Dextrose 55 ml @ 110 mls/hr Q24H IVPB 01/30/19 22:00 02/10/19 21:59 02/08/19 21:13 Dextrose (Dextrose 50%) 25 ml Q30M PRN IV Hypoglycemia 01/12/19 13:45 02/11/19 13:44 Dextrose (Dextrose 50%) 50 ml Q30M PRN IV Hypoglycemia 01/12/19 13:45 02/11/19 13:44 Enoxaparin Sodium (Lovenox) 60 mg Q12HR@0600,1800 SUBQ 01/20/19 18:00 02/19/19 17:59 02/09/19 05:11 Ergocalciferol (Drisdol) 50,000 intlu ONCE A WEEK ORAL 02/05/19 18:00 03/07/19 17:59 02/05/19 18:00 Fentanyl (Duragesic) 1 patch Q72H TDERMAL 01/25/19 12:00 02/14/19 11:59 02/06/19 12:58 Gabapentin (Neurontin) 300 mg THREE TIMES A DAY ORAL 01/19/19 18:00 02/18/19 17:59 02/09/19 08:03 Hydromorphone HCl (Dilaudid) 4 mg Q4H PRN ORAL Severe Breakthru Pain (>7) 02/06/19 15:15 02/13/19 15:14 02/07/19 10:01 Methylnaltrexone Diana (Relistor) 12 mg ONCE A WEEK SUBQ 02/01/19 09:00 03/03/19 08:59 Metronidazole 100 ml @ 100 mls/hr Q8HR IVPB 01/30/19 15:30 02/10/19 15:29 02/09/19 05:12 Miscellaneous Medication (fentaNYL Destruction) 1 ea Q72H MISC 01/25/19 11:59 02/24/19 11:58 02/06/19 11:59 Naloxone HCl (Narcan) 0.1 mg Q5M PRN IV Sedation scale 3 or 4 01/24/19 09:00 02/23/19 08:54 Ondansetron HCl (Zofran) 4 mg Q6H PRN IVP Nausea & Vomiting 01/12/19 13:45 02/11/19 13:44 02/09/19 08:03 Pantoprazole (Protonix) 40 mg EVERY 12 HOURS ORAL 01/27/19 21:00 02/26/19 20:59 02/09/19 08:03 Polyethylene Glycol (Miralax) 17 gm BEDTIME PRN ORAL constipation 01/22/19 10:30 02/15/19 20:59 Potassium Chloride (K-Dur) 40 meq DAILY ORAL 02/10/19 09:00 03/12/19 08:59 Simethicone (Mylicon) 80 mg BIDPRN PRN ORAL gas 01/18/19 21:45 02/17/19 21:44 02/08/19 20:44 Spironolactone (Aldactone) 25 mg DAILY ORAL 02/08/19 09:30 03/10/19 09:29 02/08/19 10:03 Zolpidem Tartrate (Ambien) 5 mg HSPRN PRN ORAL Insomnia 02/03/19 21:15 02/10/19 21:14 02/08/19 01:27 Catalina Kirby MD Feb 09, 2019 08:37
--- NOTE | 2019-02-09 08:47 | General Progress Note ---
Assessment/Plan Assessment/Plan: (1) Intractable abdominal pain (2) Pancreatic cancer We will continue the Neurontin, Dilaudid and Fentanyl patch D/w Dr. Gonzales and he concurred. Subjective Date patient seen: Feb 09, 2019 Time patient seen: 08:00 - am Allergies: Coded Allergies: No Known Allergies (Unverified , 01/12/19) Subjective REVIEW OF SYSTEMS: Denies rash, fever, chills, sweating, dizziness, drowsiness, blurred vision, sore throat, change in weight. No shortness of breath or chest pain. No bowel or bladder incontinence. She is complaining of abdominal pain. SUBJECTIVE: Patient reports that the pain has been at a moderate level and tolerated on the Fentanyl patch and Dilaudid. No new complaints at this time. Objective Last 24 Hour Vital Signs Date Time Temp Pulse Resp B/P (MAP) Pulse Ox O2 Delivery O2 Flow Rate FiO2 02/09/19 04:00 97.8 70 18 113/68 (83) 96 02/09/19 00:00 97.5 73 16 117/69 (85) 97 02/08/19 20:00 97.5 73 16 113/65 (81) 97 02/08/19 20:00 Room Air 02/08/19 16:00 97.5 76 18 117/79 (92) 96 02/08/19 12:00 97.9 83 18 114/84 (94) 97 02/08/19 09:00 Room Air Intake and Output 02/08/19 02/09/19 19:00 07:00 Intake Total 720 ml 255 ml Output Total 575 ml 650 ml Balance 145 ml -395 ml Intake Oral 720 ml IV Total 255 ml Other 575 ml 650 ml # Voids 7 3 # Bowel Movements 2 2 Laboratory Tests 02/09/19 05:25: White Blood Count 12.3H, Red Blood Count 3.39L, Hemoglobin 10.5L, Hematocrit 32.3L, Mean Corpuscular Volume 96, Mean Corpuscular Hemoglobin 30.9, Mean Corpuscular Hemoglobin Concent 32.4, Red Cell Distribution Width 16.1H, Platelet Count 641H, Mean Platelet Volume 5.8L, Neutrophils (%) (Auto) 79.9H, Lymphocytes (%) (Auto) 10.3L, Monocytes (%) (Auto) 7.0, Eosinophils (%) (Auto) 1.7, Basophils (%) (Auto) 1.1, Sodium Level 139, Potassium Level 4.8, Chloride Level 107, Carbon Dioxide Level 25, Anion Gap 7, Blood Urea Nitrogen 5L, Creatinine 1.0, Estimat Glomerular Filtration Rate 56.2, Glucose Level 94, Calcium Level 7.8L Height (Feet): 5 Height (Inches): 3.00 Weight (Pounds): 155 Objective GENERAL: Alert, awake, and oriented. LUNGS: Clear bilaterally. HEART: S1, S2 regular. ABDOMEN: Tenderness to palpation with biliary stent noted. BACK: Range of motion is decreased in flexion, extension. EXTREMITIES: No cyanosis. No clubbing. No edema. NEURO: No changes. Doug Reid Feb 09, 2019 08:47
--- NOTE | 2019-02-09 10:04 | General Progress Note ---
Assessment/Plan Assessment/Plan: (1) Pancreatic cancer ICD Codes: C25.9 - Malignant neoplasm of pancreas, unspecified SNOMED: 440732746 (2) Biliary drain displacement ICD Codes: T85.520A - Displacement of bile duct prosthesis, initial encounter SNOMED: 378589222 (3) Abdominal pain ICD Codes: R10.9 - Unspecified abdominal pain SNOMED: 62253184 Status: unchanged Assessment/Plan Abdominal pelvis CT reviewed 1. Appropriately positioned percutaneous left biliary drain with mild intrahepatic biliary ductal dilatation. 2. Ill-defined pancreatic head/proximal body mass, likely corresponding to stated history of pancreatic neoplasm. Please note evaluation of size and vascular involvement of pancreatic masses is incomplete prior examinations and without multiphasic pancreatic protocol. 3. 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 SMV confluence is not visualized. 4. Color wall thickening with pericholecystic fluid; in the absence of distended gallbladder, these findings are critical for acute pancreatitis and clinical correlation is recommended. No plans for GI procedures at this time. Symptomatic treatment surgical recommendations, no interventions at this time Follow-up pain management recommendations ppi Trend LFTs We will follow-up Subjective ROS Limited/Unobtainable: No Allergies: Coded Allergies: No Known Allergies (Unverified , 01/12/19) Subjective constipated Objective Last 24 Hour Vital Signs Date Time Temp Pulse Resp B/P (MAP) Pulse Ox O2 Delivery O2 Flow Rate FiO2 02/09/19 09:00 Room Air 02/09/19 08:00 97.0 80 14 114/78 (90) 98 02/09/19 04:00 97.8 70 18 113/68 (83) 96 02/09/19 00:00 97.5 73 16 117/69 (85) 97 02/08/19 20:00 97.5 73 16 113/65 (81) 97 02/08/19 20:00 Room Air 02/08/19 16:00 97.5 76 18 117/79 (92) 96 02/08/19 12:00 97.9 83 18 114/84 (94) 97 Intake and Output 02/08/19 02/09/19 19:00 07:00 Intake Total 720 ml 255 ml Output Total 575 ml 650 ml Balance 145 ml -395 ml Intake Oral 720 ml IV Total 255 ml Other 575 ml 650 ml # Voids 7 3 # Bowel Movements 2 2 Laboratory Tests 02/09/19 05:25: White Blood Count 12.3H, Red Blood Count 3.39L, Hemoglobin 10.5L, Hematocrit 32.3L, Mean Corpuscular Volume 96, Mean Corpuscular Hemoglobin 30.9, Mean Corpuscular Hemoglobin Concent 32.4, Red Cell Distribution Width 16.1H, Platelet Count 641H, Mean Platelet Volume 5.8L, Neutrophils (%) (Auto) 79.9H, Lymphocytes (%) (Auto) 10.3L, Monocytes (%) (Auto) 7.0, Eosinophils (%) (Auto) 1.7, Basophils (%) (Auto) 1.1, Sodium Level 139, Potassium Level 4.8, Chloride Level 107, Carbon Dioxide Level 25, Anion Gap 7, Blood Urea Nitrogen 5L, Creatinine 1.0, Estimat Glomerular Filtration Rate 56.2, Glucose Level 94, Calcium Level 7.8L Height (Feet): 5 Height (Inches): 3.00 Weight (Pounds): 155 General Appearance: no apparent distress EENT: normal ENT inspection Neck: supple Cardiovascular: normal rate Respiratory/Chest: decreased breath sounds Abdomen: normal bowel sounds, non tender, soft Extremities: non-tender Indra Rocha MD Feb 09, 2019 10:04
[2019-02-09] MEDS: HYDROmorphone 4mg tab ORAL PRN (10:56)
--- NOTE | 2019-02-09 11:10 | Nephrology Progress Note ---
Assessment/Plan Problem List: (1) Electrolyte abnormality (2) Pancreatic cancer (3) Biliary drain displacement (4) Abdominal pain (5) Malnutrition Assessment HypoKalemia HypoNatremia Abdominal pain. Nausea. Vomiting. UTI. Pancreatic cancer. Biliary drain displacement Malnutrition. 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 Subjective ROS Limited/Unobtainable: No Objective Objective Last 24 Hour Vital Signs Date Time Temp Pulse Resp B/P (MAP) Pulse Ox O2 Delivery O2 Flow Rate FiO2 02/09/19 09:00 Room Air 02/09/19 08:00 97.0 80 14 114/78 (90) 98 02/09/19 04:00 97.8 70 18 113/68 (83) 96 02/09/19 00:00 97.5 73 16 117/69 (85) 97 02/08/19 20:00 97.5 73 16 113/65 (81) 97 02/08/19 20:00 Room Air 02/08/19 16:00 97.5 76 18 117/79 (92) 96 02/08/19 12:00 97.9 83 18 114/84 (94) 97 Intake and Output 02/08/19 02/09/19 19:00 07:00 Intake Total 720 ml 255 ml Output Total 575 ml 650 ml Balance 145 ml -395 ml Intake Oral 720 ml IV Total 255 ml Other 575 ml 650 ml # Voids 7 3 # Bowel Movements 2 2 Laboratory Tests 02/09/19 05:25: White Blood Count 12.3H, Red Blood Count 3.39L, Hemoglobin 10.5L, Hematocrit 32.3L, Mean Corpuscular Volume 96, Mean Corpuscular Hemoglobin 30.9, Mean Corpuscular Hemoglobin Concent 32.4, Red Cell Distribution Width 16.1H, Platelet Count 641H, Mean Platelet Volume 5.8L, Neutrophils (%) (Auto) 79.9H, Lymphocytes (%) (Auto) 10.3L, Monocytes (%) (Auto) 7.0, Eosinophils (%) (Auto) 1.7, Basophils (%) (Auto) 1.1, Sodium Level 139, Potassium Level 4.8, Chloride Level 107, Carbon Dioxide Level 25, Anion Gap 7, Blood Urea Nitrogen 5L, Creatinine 1.0, Estimat Glomerular Filtration Rate 56.2, Glucose Level 94, Calcium Level 7.8L Height (Feet): 5 Height (Inches): 3.00 Weight (Pounds): 155 General Appearance: no apparent distress Cardiovascular: normal rate Abdomen: soft, distended Objective no change Kapil Turcios MD Feb 09, 2019 11:10
--- NOTE | 2019-02-09 11:20 | NUR ---
PT NOTE Attempted to see patient for PT treatment. Patient declining to participate with PT due to pain, will follow.
[2019-02-09 12:00] VITALS: BP 130/83
[2019-02-09] MEDS: fentaNYL Destruction MISC SCH (12:26)
--- NOTE | 2019-02-09 12:35 | Hematology/Onc Progress Note ---
Assessment/Plan Assessment/Plan Assessment/Plan # Pancreatic cancer, non-resectable, based on patient's info. Had a Abdominal pelvis CT reviewed 1. Appropriately positioned percutaneous left biliary drain with mild intrahepatic biliary ductal dilatation. 2. Ill-defined pancreatic head/proximal body mass, likely corresponding to stated history of pancreatic neoplasm. Please note evaluation of size and vascular involvement of pancreatic masses is incomplete prior examinations and without multiphasic pancreatic protocol. 3. 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 She has already started rx. --> gi recs noted No plans for GI procedures at this time --> surgical recommendations, no interventions at this time --> likely to continue chemo and XRT as needed with Dr. Elias Bernal (has received one chemo session) --> CA 19.9 688, in general with this presentation, poor prognosis --> if doesn't get chemo soon, likely to deteriorate, may be hospice candidate --> DW Dr. Shyann Bernal on 02/03/19 # Portal vein thrombosis with abd pain (MAY BE due to tumor encasement) --> may be contributor for abdominal pain --> appears to be chronic portal vein thrombosis on imaging --> minimize pain meds as much as possible --> started on lovenox, okay to transition to noac once discharged # Thrombocytosis, is secondary to underlying process --> currently improved --> less likely myeloproliferative --> smear has been reviewed --> trend 700-->800-->920-->1040k-->997-->304-->471 --> consider asa if worsens, doesn't need leukapheresis # Anemia of myelosuppressive chemo --> okay to continue on chemo at this time --> epo as stimulating factor if drops --> dw patient risks of dvt/VTE --> hgb trend: 9.1 # Leukocytosis is likely due to pna --> agree to trend, improved --> abx as per id --> wbc trend 22-->20-->18k-->34k-->22-->19k-->21k-->20-->16.3 -->20--> 11.2 --> ceftriaxone # Transaminitis --> Trend LFTs --> per gi --> advance diet as tolerated # Dvt ppx LOVENOX 1mg/sq bid Appreciate consultation and dw RN Subjective Cardiovascular: Denies: no symptoms, chest pain, edema, irregular heart rate, lightheadedness, palpitations, syncope, other Respiratory: Denies: no symptoms, cough, shortness of breath, SOB with excertion, SOB at rest, sputum, wheezing, other Gastrointestinal/Abdominal: Denies: no symptoms, abdomen distended, abdominal pain, black stools, tarry stools, blood in stool, constipated, diarrhea, difficulty swallowing, nausea, poor appetite, poor fluid intake, rectal bleeding , vomiting, other Genitourinary: Denies: no symptoms, burning, discharge, frequency, flank pain, hematuria, incontinence, pain, urgency, other Neurologic/Psychiatric: Denies: no symptoms, anxiety, depressed, emotional problems, headache, numbness, paresthesia, pre-existing deficit, seizure, tingling, tremors, weakness, other Endocrine: Denies: no symptoms, excessive sweating, flushing, intolerance to cold, intolerance to heat, increased hunger, increased thirst, increased urine, unexplained weight gain, unexplained weight loss, other Hematologic/Lymphatic: Denies: no symptoms, anemia, easy bleeding, easy bruising, adenopathy, other Allergies: Coded Allergies: No Known Allergies (Unverified , 01/12/19) Subjective 01/13: no events to report, no f/c, no night sweats 01/14: no bleeding, on meds, ivf 01/15: no major changes, dw patient, some minor abd pain 01/18: no major events, drain is to gravity, seen by surg, no bleeidng 01/19: awake, alert, getting dressed this am, labs noted 01/20: no events, no bleeding reported, no major changes, no fc 01/21: appears on ct scan that she has a chronic portal vein thrombosis, reviewed results with rad 01/23: to be transferred to [facility] for sob, and also okay with snf placement 01/24: no major changes, no bleeding reported, no f/c 01/25: no events, no complaints in the am, sleeping, no chills 01/26: no bleeding noted, no f/c, no night sweats 02/03: awake and alert, wbc 16, on ceftriaxone, h/h stable 02/04: no events, no bleeding, labs noted, feeling tired this am 02/05: no bleeding no fevers or chills, no night sweats 02/07: no events to report, no bleeding, 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, have dw rn would be difficult 02/08: awake and alert, no acute events, h/h stable 02/09: no bleeding or chills, some nausea noted, given zofran Objective Objective Current Medications Medications (Trade) Dose Ordered Sig/Zuleima Route PRN Reason Start Time Stop Time Status Last Admin Dose Admin Acetaminophen (Tylenol) 650 mg Q8H PRN ORAL Mild Pain/Temp > 100.5 01/12/19 17:30 02/11/19 17:29 02/09/19 05:10 Bisacodyl (Dulcolax) 10 mg BIDPRN PRN RECTAL Constipation 01/16/19 07:45 02/15/19 07:44 01/19/19 18:34 Ceftriaxone Sodium 1 gm/ Dextrose 55 ml @ 110 mls/hr Q24H IVPB 01/30/19 22:00 02/10/19 21:59 02/08/19 21:13 Dextrose (Dextrose 50%) 25 ml Q30M PRN IV Hypoglycemia 01/12/19 13:45 02/11/19 13:44 Dextrose (Dextrose 50%) 50 ml Q30M PRN IV Hypoglycemia 01/12/19 13:45 02/11/19 13:44 Enoxaparin Sodium (Lovenox) 60 mg Q12HR@0600,1800 SUBQ 01/20/19 18:00 02/19/19 17:59 02/09/19 05:11 Ergocalciferol (Drisdol) 50,000 intlu ONCE A WEEK ORAL 02/05/19 18:00 03/07/19 17:59 02/05/19 18:00 Fentanyl (Duragesic) 1 patch Q72H TDERMAL 01/25/19 12:00 02/14/19 11:59 02/09/19 12:26 Gabapentin (Neurontin) 300 mg THREE TIMES A DAY ORAL 01/19/19 18:00 02/18/19 17:59 02/09/19 12:14 Hydromorphone HCl (Dilaudid) 4 mg Q4H PRN ORAL Severe Breakthru Pain (>7) 02/06/19 15:15 02/13/19 15:14 02/09/19 10:56 Methylnaltrexone Antoine (Relistor) 12 mg ONCE A WEEK SUBQ 02/01/19 09:00 03/03/19 08:59 Metronidazole 100 ml @ 100 mls/hr Q8HR IVPB 01/30/19 15:30 02/10/19 15:29 02/09/19 05:12 Miscellaneous Medication (fentaNYL Destruction) 1 ea Q72H MISC 01/25/19 11:59 02/24/19 11:58 02/09/19 12:26 Naloxone HCl (Narcan) 0.1 mg Q5M PRN IV Sedation scale 3 or 4 01/24/19 09:00 02/23/19 08:54 Ondansetron HCl (Zofran) 4 mg Q6H PRN IVP Nausea & Vomiting 01/12/19 13:45 02/11/19 13:44 02/09/19 08:03 Pantoprazole (Protonix) 40 mg EVERY 12 HOURS ORAL 01/27/19 21:00 02/26/19 20:59 02/09/19 08:03 Polyethylene Glycol (Miralax) 17 gm BEDTIME PRN ORAL constipation 01/22/19 10:30 02/15/19 20:59 Potassium Chloride (K-Dur) 40 meq DAILY ORAL 02/10/19 09:00 03/12/19 08:59 Simethicone (Mylicon) 80 mg BIDPRN PRN ORAL gas 01/18/19 21:45 02/17/19 21:44 02/08/19 20:44 Spironolactone (Aldactone) 25 mg DAILY ORAL 02/08/19 09:30 03/10/19 09:29 02/08/19 10:03 Zolpidem Tartrate (Ambien) 5 mg HSPRN PRN ORAL Insomnia 02/03/19 21:15 02/10/19 21:14 02/08/19 01:27 Last 24 Hour Vital Signs Date Time Temp Pulse Resp B/P (MAP) Pulse Ox O2 Delivery O2 Flow Rate FiO2 02/09/19 12:00 97.5 12 130/83 (99) 98 02/09/19 09:00 Room Air 02/09/19 08:00 97.0 80 14 114/78 (90) 98 02/09/19 04:00 97.8 70 18 113/68 (83) 96 02/09/19 00:00 97.5 73 16 117/69 (85) 97 02/08/19 20:00 97.5 73 16 113/65 (81) 97 02/08/19 20:00 Room Air 02/08/19 16:00 97.5 76 18 117/79 (92) 96 02/08/19 12:00 97.9 83 18 114/84 (94) 97 02/08/19 09:00 Room Air 02/08/19 08:00 98.1 92 14 114/78 (90) 98 02/08/19 04:00 98.0 72 20 104/65 (78) 96 02/08/19 00:00 97.6 76 20 106/70 (82) 97 02/07/19 20:04 Room Air 02/07/19 20:00 97.2 76 18 102/65 (77) 98 02/07/19 16:00 98.9 85 18 105/71 (82) 95 Intake and Output 02/08/19 02/09/19 19:00 07:00 Intake Total 720 ml 255 ml Output Total 575 ml 650 ml Balance 145 ml -395 ml Intake Oral 720 ml IV Total 255 ml Other 575 ml 650 ml # Voids 7 3 # Bowel Movements 2 2 Labs Test 02/07/19 05:30 02/08/19 05:35 02/09/19 05:25 White Blood Count 13.5 K/UL (4.8-10.8) 11.2 K/UL (4.8-10.8) 12.3 K/UL (4.8-10.8) Red Blood Count 2.95 M/UL (4.20-5.40) 2.95 M/UL (4.20-5.40) 3.39 M/UL (4.20-5.40) Hemoglobin 9.3 G/DL (12.0-16.0) 9.1 G/DL (12.0-16.0) 10.5 G/DL (12.0-16.0) Hematocrit 26.7 % (37.0-47.0) 27.1 % (37.0-47.0) 32.3 % (37.0-47.0) Mean Corpuscular Volume 91 FL (80-99) 92 FL (80-99) 96 FL (80-99) Mean Corpuscular Hemoglobin 31.5 PG (27.0-31.0) 31.0 PG (27.0-31.0) 30.9 PG (27.0-31.0) Mean Corpuscular Hemoglobin Concent 34.8 G/DL (32.0-36.0) 33.8 G/DL (32.0-36.0) 32.4 G/DL (32.0-36.0) Red Cell Distribution Width 14.2 % (11.6-14.8) 13.8 % (11.6-14.8) 16.1 % (11.6-14.8) Platelet Count 421 K/UL (150-450) 471 K/UL (150-450) 641 K/UL (150-450) Mean Platelet Volume 5.7 FL (6.5-10.1) 5.6 FL (6.5-10.1) 5.8 FL (6.5-10.1) Neutrophils (%) (Auto) 78.4 % (45.0-75.0) 75.5 % (45.0-75.0) 79.9 % (45.0-75.0) Lymphocytes (%) (Auto) 8.3 % (20.0-45.0) 10.6 % (20.0-45.0) 10.3 % (20.0-45.0) Monocytes (%) (Auto) 10.2 % (1.0-10.0) 10.2 % (1.0-10.0) 7.0 % (1.0-10.0) Eosinophils (%) (Auto) 1.7 % (0.0-3.0) 2.0 % (0.0-3.0) 1.7 % (0.0-3.0) Basophils (%) (Auto) 1.4 % (0.0-2.0) 1.7 % (0.0-2.0) 1.1 % (0.0-2.0) Sodium Level 139 MMOL/L (136-145) 140 MMOL/L (136-145) 139 MMOL/L (136-145) Potassium Level 3.6 MMOL/L (3.5-5.1) 3.4 MMOL/L (3.5-5.1) 4.8 MMOL/L (3.5-5.1) Chloride Level 106 MMOL/L (98-107) 107 MMOL/L (98-107) 107 MMOL/L (98-107) Carbon Dioxide Level 25 MMOL/L (21-32) 25 MMOL/L (21-32) 25 MMOL/L (21-32) Anion Gap 8 mmol/L (5-15) 8 mmol/L (5-15) 7 mmol/L (5-15) Blood Urea Nitrogen 6 mg/dL (7-18) 6 mg/dL (7-18) 5 mg/dL (7-18) Creatinine 0.9 MG/DL (0.55-1.30) 0.9 MG/DL (0.55-1.30) 1.0 MG/DL (0.55-1.30) Estimat Glomerular Filtration Rate > 60 mL/min (>60) > 60 mL/min (>60) 56.2 mL/min (>60) Glucose Level 88 MG/DL (74-106) 87 MG/DL (74-106) 94 MG/DL (74-106) Calcium Level 7.2 MG/DL (8.5-10.1) 7.0 MG/DL (8.5-10.1) 7.8 MG/DL (8.5-10.1) Phosphorus Level 3.4 MG/DL (2.5-4.9) Magnesium Level 1.0 MG/DL (1.8-2.4) Total Bilirubin 0.3 MG/DL (0.2-1.0) Aspartate Amino Transf (AST/SGOT) 13 U/L (15-37) Alanine Aminotransferase (ALT/SGPT) 8 U/L (12-78) Alkaline Phosphatase 126 U/L (46-116) Total Protein 5.3 G/DL (6.4-8.2) Albumin 1.3 G/DL (3.4-5.0) Globulin 4.0 g/dL Albumin/Globulin Ratio 0.3 (1.0-2.7) Height (Feet): 5 Height (Inches): 3.00 Weight (Pounds): 155 Objective Gen: nad Pulm: Ctab Cardiovascular: RSR Abdomen: soft, flat, non-tender, present bowel sounds ext-int drain Extremities: no edema, no tenderness, no cyanosis Roberto Davidson MD Feb 09, 2019 12:35
--- NOTE | 2019-02-09 14:35 | General Progress Note ---
Assessment/Plan Problem List: (1) SOB (shortness of breath) ICD Codes: R06.02 - Shortness of breath SNOMED: 529512127 (2) Nausea & vomiting ICD Codes: R11.2 - Nausea with vomiting, unspecified SNOMED: 68200806 (3) Malnutrition ICD Codes: E46 - Unspecified protein-calorie malnutrition SNOMED: 31079316 (4) UTI (urinary tract infection) ICD Codes: N39.0 - Urinary tract infection, site not specified SNOMED: 48512451 (5) Abdominal pain ICD Codes: R10.9 - Unspecified abdominal pain SNOMED: 83504413 (6) Biliary drain displacement ICD Codes: T85.520A - Displacement of bile duct prosthesis, initial encounter SNOMED: 759048526 (7) Pancreatic cancer ICD Codes: C25.9 - Malignant neoplasm of pancreas, unspecified SNOMED: 461983068 Status: unchanged Assessment/Plan: pt diet pain control abx cbc bmp am dc plan snf Subjective Constitutional: Reports: weakness Allergies: Coded Allergies: No Known Allergies (Unverified , 01/12/19) All Systems: reviewed and negative except above Subjective calm sleepy Objective Last 24 Hour Vital Signs Date Time Temp Pulse Resp B/P (MAP) Pulse Ox O2 Delivery O2 Flow Rate FiO2 02/09/19 12:00 97.5 12 130/83 (99) 98 02/09/19 09:00 Room Air 02/09/19 08:00 97.0 80 14 114/78 (90) 98 02/09/19 04:00 97.8 70 18 113/68 (83) 96 02/09/19 00:00 97.5 73 16 117/69 (85) 97 02/08/19 20:00 97.5 73 16 113/65 (81) 97 02/08/19 20:00 Room Air 02/08/19 16:00 97.5 76 18 117/79 (92) 96 Intake and Output 02/08/19 02/09/19 19:00 07:00 Intake Total 720 ml 255 ml Output Total 575 ml 650 ml Balance 145 ml -395 ml Intake Oral 720 ml IV Total 255 ml Other 575 ml 650 ml # Voids 7 3 # Bowel Movements 2 2 Laboratory Tests 02/09/19 05:25: White Blood Count 12.3H, Red Blood Count 3.39L, Hemoglobin 10.5L, Hematocrit 32.3L, Mean Corpuscular Volume 96, Mean Corpuscular Hemoglobin 30.9, Mean Corpuscular Hemoglobin Concent 32.4, Red Cell Distribution Width 16.1H, Platelet Count 641H, Mean Platelet Volume 5.8L, Neutrophils (%) (Auto) 79.9H, Lymphocytes (%) (Auto) 10.3L, Monocytes (%) (Auto) 7.0, Eosinophils (%) (Auto) 1.7, Basophils (%) (Auto) 1.1, Sodium Level 139, Potassium Level 4.8, Chloride Level 107, Carbon Dioxide Level 25, Anion Gap 7, Blood Urea Nitrogen 5L, Creatinine 1.0, Estimat Glomerular Filtration Rate 56.2, Glucose Level 94, Calcium Level 7.8L Height (Feet): 5 Height (Inches): 3.00 Weight (Pounds): 155 General Appearance: lethargic EENT: normal ENT inspection Neck: normal alignment Cardiovascular: normal peripheral pulses, normal rate, regular rhythm Respiratory/Chest: chest wall non-tender, lungs clear, normal breath sounds Abdomen: soft, decreased bowel sounds Extremities: normal inspection Edema: no edema noted Arm (L), no edema noted Arm (R), no edema noted Leg (L), no edema noted Leg (R), no edema noted Pedal (L), no edema noted Pedal (R), no edema noted Generalized Neurologic: motor weakness Skin: normal pigmentation, warm/dry Elvis Luke DO Feb 09, 2019 14:35
--- NOTE | 2019-02-09 15:46 | NUR ---
*-* INSURANCE *-* ALL AVAILABLE CLINICALS HAVE BEEN FAXED TO: REF#[id number] - FOR TRACKING PURPOSES THIS IS SHARED RISK NO CM ASSIGNED PH#[phone] FAX#[phone] [facility]CL[facility]ICALS [facility]#[id number] CM: TAMMY PH#[phone] EXT 0935 FAX#[phone] REVIEWS/CLINICALS
--- NOTE | 2019-02-09 15:59 | NUR ---
NURSE NOTES: PT REQUESTS TO SPEAK TO TANKER DRIVER REGARDING INSURANCE AND PLACEMENT. ALSO WISHES TO SPEAK TO DR BECERRA REGARDING CANCER PROGNOSIS. RN LEFT MESSAGE FOR DR BECERRA. PT STATED SHE STARTED HAVING HALLUCINATIONS, DESCRIBES THEM FLASHES OF LIGHT. DENIES HEARING VOICES. RN LEFT MESSAGE FOR DR BONNER. PER DR BONNER, PLEASE LET DR CORTEZ AWARE. RN LEFT MESSAGE FOR DR CORTEZ.
[2019-02-09 16:00] VITALS: BP 125/78
--- NOTE | 2019-02-09 16:05 | NUR ---
MACHINE LOADERPHYSICIAN ASSISTANT CERTIFIED SI: ABD PAIN, LEUKOCYTOSIS T. 97.5 HR 80 RR 14 B/P 114/70 RA 98% WBC 12.3 IS: CEFTRIAXONE IV FLAGYL IV PROTONIX LOVENOX SUBC ALDACTONE PO PLACEMENT PENDING MED/SURG STATUS CAN YOU PLEASE CALL ME IN REGARDS TO PLACEMENT. I LEFT TWO MESSAGES NO RESPONSE.
--- NOTE | 2019-02-09 17:19 | Surgery Progress Note ---
Surgery Progress Note Subjective Additional Comments wbc 12k she feels well and wants to leave vinny pending placement exam stable comfortable tolerating diet drain checked and okay Objective Last 24 Hour Vital Signs Date Time Temp Pulse Resp B/P (MAP) Pulse Ox O2 Delivery O2 Flow Rate FiO2 02/09/19 16:00 97.2 18 125/78 (94) 98 02/09/19 12:00 97.5 12 130/83 (99) 98 02/09/19 09:00 Room Air 02/09/19 08:00 97.0 80 14 114/78 (90) 98 02/09/19 04:00 97.8 70 18 113/68 (83) 96 02/09/19 00:00 97.5 73 16 117/69 (85) 97 02/08/19 20:00 97.5 73 16 113/65 (81) 97 02/08/19 20:00 Room Air I&O Intake and Output 02/08/19 02/09/19 19:00 07:00 Intake Total 720 ml 255 ml Output Total 575 ml 650 ml Balance 145 ml -395 ml Intake Oral 720 ml IV Total 255 ml Other 575 ml 650 ml # Voids 7 3 # Bowel Movements 2 2 Dressing: dry Wound: clean, dry Drains: other Cardiovascular: RSR Respiratory: clear Abdomen: soft, flat, non-tender, present bowel sounds Extremities: no edema, no tenderness, no cyanosis Laboratory Tests Test 02/09/19 05:25 White Blood Count 12.3 K/UL (4.8-10.8) H Red Blood Count 3.39 M/UL (4.20-5.40) L Hemoglobin 10.5 G/DL (12.0-16.0) L Hematocrit 32.3 % (37.0-47.0) L Mean Corpuscular Volume 96 FL (80-99) Mean Corpuscular Hemoglobin 30.9 PG (27.0-31.0) Mean Corpuscular Hemoglobin Concent 32.4 G/DL (32.0-36.0) Red Cell Distribution Width 16.1 % (11.6-14.8) H Platelet Count 641 K/UL (150-450) H Mean Platelet Volume 5.8 FL (6.5-10.1) L Neutrophils (%) (Auto) 79.9 % (45.0-75.0) H Lymphocytes (%) (Auto) 10.3 % (20.0-45.0) L Monocytes (%) (Auto) 7.0 % (1.0-10.0) Eosinophils (%) (Auto) 1.7 % (0.0-3.0) Basophils (%) (Auto) 1.1 % (0.0-2.0) Sodium Level 139 MMOL/L (136-145) Potassium Level 4.8 MMOL/L (3.5-5.1) Chloride Level 107 MMOL/L (98-107) Carbon Dioxide Level 25 MMOL/L (21-32) Anion Gap 7 mmol/L (5-15) Blood Urea Nitrogen 5 mg/dL (7-18) L Creatinine 1.0 MG/DL (0.55-1.30) Estimat Glomerular Filtration Rate 56.2 mL/min (>60) Glucose Level 94 MG/DL (74-106) Calcium Level 7.8 MG/DL (8.5-10.1) L Plan Problems: (1) Abdominal pain Assessment & Plan: 63-year-old female patient with history of recently diagnosed pancreatic cancer in November 2018 presented to the emergency room at [facility] with complaint of abdominal pain for approximately 1 hour. Patient is status post a biliary drain placement at [facility] approximately 1 week ago. She reported that she had a first treatment of chemotherapy this past Thursday. The patient denied any nausea vomiting, denies any constipation or diarrhea. She states her pain medication was unable to relieve her pain. no fever or chills. labs as below. C Tnoted. surgery called to assist with care and management. tube checked Impression: Diffusely abnormal bowel uptake. Given findings on recent CT scan, this most likely represents enteritis, most likely infectious. Abnormal uptake in the face or upper neck to the left of midline, exact location uncertain. Consider neck CT for better characterization Mildly prominent pulmonary uptake, significance doubted okay for diet tube to drain IV abx d/c planning for SNF f/u with pcp / onc outpatient stable otherwise from surgical standpoint no acute surgical intervention planned Probably has extensive tumor burden given interventions and findings noted. No surgical recommendation at this time. Possible that fluid collection in case in the abdomen infected but to operate on this would be ill advised at this time and patient's current condition. Continue with antibiotics iv fluids trend labs will monitor and follow with exam thank you (2) Biliary drain displacement Assessment & Plan: Daughter was able to inform me with a lot of history. Seems patient unresectable initially and attempted biliary drain placed endoscopically but unsuccessful. A external biliary drain was placed by radiology. Would patient was getting her Port-A-Cath placed a another radiologist felt he could place a internal/external biliary drain and he was able to successfully place a internal/external biliary drain. Had the trade Since. Fell off and she has been without it to drainage recently. In evaluating the trade she has some bilious output from the drain and on imaging drain looks to be appropriately placed. Labs reviewed stable. drain placed to gravity as leaking Drain putting out a ton since placed on 2 bag IMPRESSION: 1. Appropriately positioned percutaneous left biliary drain with mild intrahepatic biliary ductal dilatation. 2. Ill-defined pancreatic head/proximal body mass, likely corresponding to stated history of pancreatic neoplasm. Please note evaluation of size and vascular involvement of pancreatic masses is incomplete prior examinations and without multiphasic pancreatic protocol. 3. 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 SMV confluence is not visualized. 4. Color wall thickening with pericholecystic fluid; in the absence of distended gallbladder, these findings are critical for acute pancreatitis and clinical correlation is recommended. Transhepatic biliary drain noted. 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 Abnormal liver with area of peripheral hypoechogenicity along the posterior right lobe margin. Suggest further evaluation with contrast CT. Obscured pancreas and aorta due to bowel gas. . Interval development of moderate small bowel dilatation. Transition to relatively decompressed terminal ileum demonstrated indicating this is probably a mechanical bowel obstruction. Pneumatosis suspected within one of the proximal small bowel segments in the upper abdomen. No evidence of perforation. Development of multiloculated ascites with prominent collections contiguous with the caudal end of the right lobe of the liver capsule, Morison's pouch and inferior to the right kidney. Other generalized mild ascites noted as well. Internal/external transhepatic biliary drainage catheter in good position. No imaging evidence for catheter malfunction or biliary obstruction. CT noted. likely internal leakage from internal external drain as it was noted to be backing put few days ago hence placed on drainage bag recommend outpatient f/u with oncology and her GI at primary facility to discuss placement of internal metallic larger drain and remove internal / external drain s/p abd drain placement micro noted labs improved on abx s/p new drain 02/01/19 - removed 02/07 / d/c to SNF. f/u with outpatient onc f/u with outpatient GI for consideration of metallic biliary drain now that she has internal external thank you (3) Pancreatic cancer Assessment & Plan: Pancreatic cancer, non-resectable, based on patient's info. Had a Abdominal pelvis CT reviewed 1. Appropriately positioned percutaneous left biliary drain with mild intrahepatic biliary ductal dilatation. 2. Ill- defined pancreatic head/proximal body mass, likely corresponding to stated history of pancreatic neoplasm. Please note evaluation of size and vascular involvement of pancreatic masses is incomplete prior examinations and without multiphasic pancreatic protocol. 3. 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 She has already started rx Jim Gates Feb 09, 2019 17:19
--- NOTE | 2019-02-09 19:05 | NUR ---
NURSE NOTES: Received report from CAITIE Magallanes. Pt resting in bed, on room air. IV site intact and patent. L side biliary drain intact and draining well. Commode and walker at bedside. Fall precaution maintained. No resp. distress noted at this time. Bed locked, lowest position, alarm on, side rails up x 2, call light within reach. Will continue to monitor.
--- NOTE | 2019-02-09 19:08 | NUR ---
HAND-OFF: Report given to Jeanine BROWN RN.
[2019-02-09 20:00] VITALS: BP 111/69
[2019-02-09] MEDS: cefTRIAXone 1gm/D5W 55ml IVPB SCH ×4 (20:52→21:00)
[2019-02-09] MEDS: Zolpidem 5mg tab ORAL PRN (23:54)
[2019-02-10] VITALS: BP 115/64
[2019-02-10 04:00] VITALS: BP 112/73
[2019-02-10] MEDS: metroNIDAZOLE 500mg Premix IVPB SCH ×3 (05:34→21:48)
[2019-02-10] MEDS: Enoxaparin 60mg Inj SUBQ SCH ×2 (05:35→17:52)
[2019-02-10 06:23] LABS: BASOPHILS % (AUTO) 1.4 % (0.0-2.0); EOSINOPHILS % (AUTO) 3.1 % (0.0-3.0); HEMATOCRIT 31.5 % (37.0-47.0); HEMOGLOBIN 10.1 G/DL (12.0-16.0); LYMPHOCYTES % (AUTO) 11.4 % (20.0-45.0); MEAN CORPUSCULAR VOLUME 96 FL (80-99); MONOCYTES % (AUTO) 8.7 % (1.0-10.0); NEUTROPHILS % (AUTO) 75.5 % (45.0-75.0); PLATELET COUNT 663 K/UL (150-450); RED BLOOD COUNT 3.29 M/UL (4.20-5.40); WHITE BLOOD COUNT 12.6 K/UL (4.8-10.8)
[2019-02-10 07:00] LABS: ALANINE AMINOTRANSFERASE 8 U/L (12-78); ALBUMIN 1.4 G/DL (3.4-5.0); ALBUMIN/GLOBULIN RATIO 0.3 (1.0-2.7); ALKALINE PHOSPHATASE 179 U/L (46-116); ANION GAP 1 mmol/L (5-15); ASPARTATE AMINO TRANSFERASE 15 U/L (15-37); BILIRUBIN,TOTAL 0.4 MG/DL (0.2-1.0); BLOOD UREA NITROGEN 6 mg/dL (7-18); CALCIUM 7.6 MG/DL (8.5-10.1); CARBON DIOXIDE 28 MMOL/L (21-32); CHLORIDE 106 MMOL/L (98-107); SODIUM 135 MMOL/L (136-145)
--- NOTE | 2019-02-10 07:06 | NUR ---
HAND-OFF: Report given to CAITIE Magallanes.
--- NOTE | 2019-02-10 07:53 | NUR ---
NURSE NOTES: PT AXOX4, CALM, RESTING IN BED. DENIES PAIN OR N/V AT THIS TIME. LEFT BILIARY DRAIN DRAINING BROWN FLUID BY GRAVITY. IN NO APPARENT DISTRESS. CALL LIGHT WITHIN REACH. BED IN LOWEST POSITION WITH BEDSIDE RAILS X2 RAISED. WILL CONTINUE TO MONITOR.
[2019-02-10 08:00] VITALS: BP 109/73
--- NOTE | 2019-02-10 08:50 | General Progress Note ---
Assessment/Plan Assessment/Plan: (1) Intractable abdominal pain (2) Pancreatic cancer We will continue the Neurontin, Dilaudid and Fentanyl patch D/w Dr. Gonzales and he concurred. Subjective Date patient seen: Feb 10, 2019 Time patient seen: 08:00 - am Allergies: Coded Allergies: No Known Allergies (Unverified , 01/12/19) Subjective REVIEW OF SYSTEMS: Denies rash, fever, chills, sweating, dizziness, drowsiness, blurred vision, sore throat, change in weight. No shortness of breath or chest pain. No bowel or bladder incontinence. She is complaining of abdominal pain. SUBJECTIVE: Patient is in bed and reports moderate pain at this time. She has continues to have the Fentanyl patch and one dose of Dilaudid in the last 24hrs. No new complaints at this time. Objective Last 24 Hour Vital Signs Date Time Temp Pulse Resp B/P (MAP) Pulse Ox O2 Delivery O2 Flow Rate FiO2 02/10/19 08:00 98.0 85 18 109/73 (85) 96 02/10/19 04:00 98.1 74 18 112/73 (86) 99 02/10/19 00:00 97.5 80 18 115/64 (81) 97 02/09/19 20:00 97.5 77 18 111/69 (83) 96 02/09/19 19:21 Room Air 02/09/19 16:00 97.2 18 125/78 (94) 98 02/09/19 12:00 97.5 12 130/83 (99) 98 02/09/19 09:00 Room Air Intake and Output 02/09/19 02/10/19 19:00 07:00 Intake Total 820 ml 155 ml Output Total 1325 ml Balance 820 ml -1170 ml Intake Oral 720 ml IV Total 100 ml 155 ml Other 1325 ml # Voids 3 4 # Bowel Movements 2 1 Laboratory Tests 02/10/19 05:50: White Blood Count 12.6H, Red Blood Count 3.29L, Hemoglobin 10.1L, Hematocrit 31.5L, Mean Corpuscular Volume 96, Mean Corpuscular Hemoglobin 30.6, Mean Corpuscular Hemoglobin Concent 32.0, Red Cell Distribution Width 16.0H, Platelet Count 663H, Mean Platelet Volume 5.6L, Neutrophils (%) (Auto) 75.5H, Lymphocytes (%) (Auto) 11.4L, Monocytes (%) (Auto) 8.7, Eosinophils (%) (Auto) 3.1H, Basophils (%) (Auto) 1.4, Sodium Level 135L, Potassium Level 5.0, Chloride Level 106, Carbon Dioxide Level 28, Anion Gap 1L, Blood Urea Nitrogen 6L, Creatinine 1.0, Estimat Glomerular Filtration Rate 56.2, Glucose Level 87, Calcium Level 7.6L, Phosphorus Level 3.0, Magnesium Level 2.0, Total Bilirubin 0.4, Aspartate Amino Transf (AST/SGOT) 15, Alanine Aminotransferase (ALT/SGPT) 8L, Alkaline Phosphatase 179H, Total Protein 5.8L, Albumin 1.4L, Globulin 4.4, Albumin/Globulin Ratio 0.3L Height (Feet): 5 Height (Inches): 3.00 Weight (Pounds): 155 Objective GENERAL: Alert, awake, and oriented. LUNGS: Clear bilaterally. HEART: S1, S2 regular. ABDOMEN: Tenderness to palpation with biliary stent noted. BACK: Range of motion is decreased in flexion, extension. EXTREMITIES: No cyanosis. No clubbing. No edema. NEURO: No changes. Doug Reid Feb 10, 2019 08:50
[2019-02-10] MEDS: Spironolactone 25mg tab ORAL SCH (08:59)
--- NOTE | 2019-02-10 11:09 | NUR ---
NURSE NOTES: PT STATES "I FEEL NAUSEATED ALL OF A SUDDEN". RN ADMINISTERED PRN ZOFRAN ORDERED. PHYSICAL THERAPIST GRICELDA TO COME BACK AFTER LUNCH. PT WAS SITTING ON CHAIR AT BEDSIDE AND WENT BACK TO BED WITH ASSIST. NO EMESIS NOTED. PT PLACED IN HIGH RUIZ'S POSITION WITH HOB ELEVATED. BASIN AND CALL LIGHT WITHIN REACH. WILL CONTINUE TO MONITOR.
--- NOTE | 2019-02-10 11:16 | General Progress Note ---
Assessment/Plan Assessment/Plan: (1) Pancreatic cancer ICD Codes: C25.9 - Malignant neoplasm of pancreas, unspecified SNOMED: 864520968 (2) Biliary drain displacement ICD Codes: T85.520A - Displacement of bile duct prosthesis, initial encounter SNOMED: 061799131 (3) Abdominal pain ICD Codes: R10.9 - Unspecified abdominal pain SNOMED: 48225311 Status: unchanged Assessment/Plan Abdominal pelvis CT reviewed 1. Appropriately positioned percutaneous left biliary drain with mild intrahepatic biliary ductal dilatation. 2. Ill-defined pancreatic head/proximal body mass, likely corresponding to stated history of pancreatic neoplasm. Please note evaluation of size and vascular involvement of pancreatic masses is incomplete prior examinations and without multiphasic pancreatic protocol. 3. 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 SMV confluence is not visualized. 4. Color wall thickening with pericholecystic fluid; in the absence of distended gallbladder, these findings are critical for acute pancreatitis and clinical correlation is recommended. No plans for GI procedures at this time. Symptomatic treatment surgical recommendations, no interventions at this time Follow-up pain management recommendations ppi Trend LFTs We will follow-up Subjective Allergies: Coded Allergies: No Known Allergies (Unverified , 01/12/19) Subjective constipated Objective Last 24 Hour Vital Signs Date Time Temp Pulse Resp B/P (MAP) Pulse Ox O2 Delivery O2 Flow Rate FiO2 02/10/19 09:00 Room Air 02/10/19 08:00 98.0 85 18 109/73 (85) 96 02/10/19 04:00 98.1 74 18 112/73 (86) 99 02/10/19 00:00 97.5 80 18 115/64 (81) 97 02/09/19 20:00 97.5 77 18 111/69 (83) 96 02/09/19 19:21 Room Air 02/09/19 16:00 97.2 18 125/78 (94) 98 02/09/19 12:00 97.5 12 130/83 (99) 98 Intake and Output 02/09/19 02/10/19 19:00 07:00 Intake Total 820 ml 155 ml Output Total 1325 ml Balance 820 ml -1170 ml Intake Oral 720 ml IV Total 100 ml 155 ml Other 1325 ml # Voids 3 4 # Bowel Movements 2 1 Laboratory Tests 02/10/19 05:50: White Blood Count 12.6H, Red Blood Count 3.29L, Hemoglobin 10.1L, Hematocrit 31.5L, Mean Corpuscular Volume 96, Mean Corpuscular Hemoglobin 30.6, Mean Corpuscular Hemoglobin Concent 32.0, Red Cell Distribution Width 16.0H, Platelet Count 663H, Mean Platelet Volume 5.6L, Neutrophils (%) (Auto) 75.5H, Lymphocytes (%) (Auto) 11.4L, Monocytes (%) (Auto) 8.7, Eosinophils (%) (Auto) 3.1H, Basophils (%) (Auto) 1.4, Sodium Level 135L, Potassium Level 5.0, Chloride Level 106, Carbon Dioxide Level 28, Anion Gap 1L, Blood Urea Nitrogen 6L, Creatinine 1.0, Estimat Glomerular Filtration Rate 56.2, Glucose Level 87, Calcium Level 7.6L, Phosphorus Level 3.0, Magnesium Level 2.0, Total Bilirubin 0.4, Aspartate Amino Transf (AST/SGOT) 15, Alanine Aminotransferase (ALT/SGPT) 8L, Alkaline Phosphatase 179H, Total Protein 5.8L, Albumin 1.4L, Globulin 4.4, Albumin/Globulin Ratio 0.3L Height (Feet): 5 Height (Inches): 3.00 Weight (Pounds): 155 General Appearance: alert EENT: normal ENT inspection Neck: supple Cardiovascular: normal rate Respiratory/Chest: decreased breath sounds Abdomen: normal bowel sounds, non tender, soft Extremities: non-tender Indra Rocha MD Feb 10, 2019 11:16
[2019-02-10 12:00] VITALS: BP 115/75
--- NOTE | 2019-02-10 13:06 | Nephrology Progress Note ---
Assessment/Plan Problem List: (1) Electrolyte abnormality (2) Pancreatic cancer (3) Biliary drain displacement (4) Abdominal pain (5) Malnutrition Assessment HypoKalemia HypoNatremia Abdominal pain. Nausea. Vomiting. UTI. Pancreatic cancer. Biliary drain displacement Malnutrition. 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 Subjective ROS Limited/Unobtainable: No Constitutional: Reports: weakness Objective Objective Last 24 Hour Vital Signs Date Time Temp Pulse Resp B/P (MAP) Pulse Ox O2 Delivery O2 Flow Rate FiO2 02/10/19 12:00 98.7 83 18 115/75 (88) 98 02/10/19 09:00 Room Air 02/10/19 08:00 98.0 85 18 109/73 (85) 96 02/10/19 04:00 98.1 74 18 112/73 (86) 99 02/10/19 00:00 97.5 80 18 115/64 (81) 97 02/09/19 20:00 97.5 77 18 111/69 (83) 96 02/09/19 19:21 Room Air 02/09/19 16:00 97.2 18 125/78 (94) 98 Intake and Output 02/09/19 02/10/19 19:00 07:00 Intake Total 820 ml 155 ml Output Total 1325 ml Balance 820 ml -1170 ml Intake Oral 720 ml IV Total 100 ml 155 ml Other 1325 ml # Voids 3 4 # Bowel Movements 2 1 Laboratory Tests 02/10/19 05:50: White Blood Count 12.6H, Red Blood Count 3.29L, Hemoglobin 10.1L, Hematocrit 31.5L, Mean Corpuscular Volume 96, Mean Corpuscular Hemoglobin 30.6, Mean Corpuscular Hemoglobin Concent 32.0, Red Cell Distribution Width 16.0H, Platelet Count 663H, Mean Platelet Volume 5.6L, Neutrophils (%) (Auto) 75.5H, Lymphocytes (%) (Auto) 11.4L, Monocytes (%) (Auto) 8.7, Eosinophils (%) (Auto) 3.1H, Basophils (%) (Auto) 1.4, Sodium Level 135L, Potassium Level 5.0, Chloride Level 106, Carbon Dioxide Level 28, Anion Gap 1L, Blood Urea Nitrogen 6L, Creatinine 1.0, Estimat Glomerular Filtration Rate 56.2, Glucose Level 87, Calcium Level 7.6L, Phosphorus Level 3.0, Magnesium Level 2.0, Total Bilirubin 0.4, Aspartate Amino Transf (AST/SGOT) 15, Alanine Aminotransferase (ALT/SGPT) 8L, Alkaline Phosphatase 179H, Total Protein 5.8L, Albumin 1.4L, Globulin 4.4, Albumin/Globulin Ratio 0.3L Height (Feet): 5 Height (Inches): 3.00 Weight (Pounds): 155 General Appearance: no apparent distress Objective no change Kapil Turcios MD Feb 10, 2019 13:06
--- NOTE | 2019-02-10 13:26 | NUR ---
PRECISE WINDERPIGMENT AND LACQUER MIXER SI; ABDOMINAL PAIN,LEUKOCYTOSIS T. 97.5 HR 85 RR 18 B/P 109/73 RR 98% WBC 12.6 IS: CEFTRIAXONE IV FLAGYL IV ALDACTONE PO MED/SURG STATUS
--- NOTE | 2019-02-10 13:29 | General Progress Note ---
Assessment/Plan Problem List: (1) SOB (shortness of breath) ICD Codes: R06.02 - Shortness of breath SNOMED: 919516967 (2) Nausea & vomiting ICD Codes: R11.2 - Nausea with vomiting, unspecified SNOMED: 37540369 (3) Malnutrition ICD Codes: E46 - Unspecified protein-calorie malnutrition SNOMED: 93776905 (4) UTI (urinary tract infection) ICD Codes: N39.0 - Urinary tract infection, site not specified SNOMED: 40775028 (5) Abdominal pain ICD Codes: R10.9 - Unspecified abdominal pain SNOMED: 51617482 (6) Biliary drain displacement ICD Codes: T85.520A - Displacement of bile duct prosthesis, initial encounter SNOMED: 107068817 (7) Pancreatic cancer ICD Codes: C25.9 - Malignant neoplasm of pancreas, unspecified SNOMED: 830369782 Status: unchanged Assessment/Plan: pt diet pain control abx cbc bmp am dc plan snf Subjective Constitutional: Reports: weakness Allergies: Coded Allergies: No Known Allergies (Unverified , 01/12/19) All Systems: reviewed and negative except above Subjective calm sleepy Objective Last 24 Hour Vital Signs Date Time Temp Pulse Resp B/P (MAP) Pulse Ox O2 Delivery O2 Flow Rate FiO2 02/10/19 12:00 98.7 83 18 115/75 (88) 98 02/10/19 09:00 Room Air 02/10/19 08:00 98.0 85 18 109/73 (85) 96 02/10/19 04:00 98.1 74 18 112/73 (86) 99 02/10/19 00:00 97.5 80 18 115/64 (81) 97 02/09/19 20:00 97.5 77 18 111/69 (83) 96 02/09/19 19:21 Room Air 02/09/19 16:00 97.2 18 125/78 (94) 98 Intake and Output 02/09/19 02/10/19 19:00 07:00 Intake Total 820 ml 155 ml Output Total 1325 ml Balance 820 ml -1170 ml Intake Oral 720 ml IV Total 100 ml 155 ml Other 1325 ml # Voids 3 4 # Bowel Movements 2 1 Laboratory Tests 02/10/19 05:50: White Blood Count 12.6H, Red Blood Count 3.29L, Hemoglobin 10.1L, Hematocrit 31.5L, Mean Corpuscular Volume 96, Mean Corpuscular Hemoglobin 30.6, Mean Corpuscular Hemoglobin Concent 32.0, Red Cell Distribution Width 16.0H, Platelet Count 663H, Mean Platelet Volume 5.6L, Neutrophils (%) (Auto) 75.5H, Lymphocytes (%) (Auto) 11.4L, Monocytes (%) (Auto) 8.7, Eosinophils (%) (Auto) 3.1H, Basophils (%) (Auto) 1.4, Sodium Level 135L, Potassium Level 5.0, Chloride Level 106, Carbon Dioxide Level 28, Anion Gap 1L, Blood Urea Nitrogen 6L, Creatinine 1.0, Estimat Glomerular Filtration Rate 56.2, Glucose Level 87, Calcium Level 7.6L, Phosphorus Level 3.0, Magnesium Level 2.0, Total Bilirubin 0.4, Aspartate Amino Transf (AST/SGOT) 15, Alanine Aminotransferase (ALT/SGPT) 8L, Alkaline Phosphatase 179H, Total Protein 5.8L, Albumin 1.4L, Globulin 4.4, Albumin/Globulin Ratio 0.3L Height (Feet): 5 Height (Inches): 3.00 Weight (Pounds): 155 General Appearance: lethargic EENT: normal ENT inspection Neck: normal alignment Cardiovascular: normal rate Respiratory/Chest: chest wall non-tender, lungs clear, normal breath sounds Abdomen: soft, decreased bowel sounds Extremities: normal inspection Edema: no edema noted Arm (L), no edema noted Arm (R), no edema noted Leg (L), no edema noted Leg (R), no edema noted Pedal (L), no edema noted Pedal (R), no edema noted Generalized Neurologic: motor weakness Skin: normal pigmentation, warm/dry Elvis Luke DO Feb 10, 2019 13:29
[2019-02-10] MEDS: HYDROmorphone 4mg tab ORAL PRN (13:43)
[2019-02-10] MEDS: Simethicone 80mg tab ORAL PRN ×2 (13:43→23:21)
--- NOTE | 2019-02-10 13:44 | Infectious Diseases Prog Note ---
Assessment/Plan Assessment/Plan Fever 01/13, SP Leukocytosis, fluctuating 01/14 bcx ng tumor related? Ileus related? biloma related? atelectasis? 01/24 Indium scan: Diffusely abnormal bowel uptake. Given findings on recent CT scan, this most likely represents enteritis, most likely infectious. Abnormal uptake in the face or upper neck to the left of midline, exact location uncertain. Consider neck CT for better characterization. Mildly prominent pulmonary uptake, significance doubted. On further review the images, activity in the right midabdomen is greater than would be accounted for acute spine hepatic activity, and there is significant activity inferior to the right lobe of the liver in the anterior abdomen. This correlates with a large loculated fluid collection demonstrated on recent CT scan of 01/20/2019, and may indicate infection of this collection. The smaller subcapsular collection in the posterior right hepatic lobe is difficult to differentiate from normal liver activity on this exam, so it is not possible to assess for the presence or absence of abnormal activity in this. 01/27 US: Aspiration of posterior hepatic subcapsular collection, yielding serous fluid which does not appear grossly infected. No drainage catheter placed , therefore, but a specimen was sent to the lab for analysis. Placement of 8.5 [place] pigtail drainage catheter in anterior right lower quadrant intraperitoneal collection. This yielded borderline purulent appearing body brown fluid. Specimen sent to lab for analysis. 01/27 fluid: 76K WBC(92% PMN). cx: 3+ E coli 02/01: Successful ultrasound-guided placement of a percutaneous drain within a fluid collection that was previously infected and previously addressed by a percutaneous drain which had accidentally fallen out yesterday. PNA, CAP? -CXR: Patchy consolidation in the right lower lung, concerning for pneumonia. Mild pulmonary vascular congestion. -flu swab negative urine legionella antigen negative Abdominal pain Pancreatitis? lipase negative 01/12 CT abd/p: Appropriately positioned percutaneous left biliary drain with mild intrahepatic biliary ductal dilatation. Ill-defined pancreatic head/ proximal body mass, likely corresponding to stated history of pancreatic neoplasm. Please note evaluation of size and vascular involvement of pancreatic masses is incomplete prior examinations and without multiphasic pancreatic protocol. 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 SMV confluence is not visualized. Gallbladder wall thickening with pericholecystic fluid; in the absence of distended gallbladder, these findings are critical for acute pancreatitis and clinical correlation is recommended. 01/19 US Abd: Transhepatic biliary drain noted. 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 Abnormal liver with area of peripheral hypoechogenicity along the posterior right lobe margin. Suggest further evaluation with contrast CT. Obscured pancreas and aorta due to bowel gas. Trace ascites 01/20 CT A/P: Interval development of moderate small bowel dilatation. Transition to relatively decompressed terminal ileum demonstrated indicating this is probably a mechanical bowel obstruction. Pneumatosis suspected within one of the proximal small bowel segments in the upper abdomen. No evidence of perforation. Development of multiloculated ascites with prominent collections contiguous with the caudal end of the right lobe of the liver capsule, Morison's pouch and inferior to the right kidney. Other generalized mild ascites noted as well. Internal/external transhepatic biliary drainage catheter in good position. No imaging evidence for catheter malfunction or biliary obstruction. Right basilar consolidation versus atelectasis. Correlate for pneumonia. Trace bilateral pleural effusions. Anasarca recently diagnosed pancreatic CA 11/2018 - s/p biliary drain 1 week [facility] at [facility] - 1st chemotherapy treatment 01/10/19 tobacco abuse Plan: Ceftriaxone, flagyl #13...can be DCed on ciprofloxacin and flagyl PO for 7 days with repeat imaging at the end of 7 days. 01/30 SP Meropenem #6 01/25 SP Ceftriaxone #3, flagyl #1, vancomycin #11 01/22 SP Azithromycin #7 01/23 SP Zosyn #8 01/17 DC Tamiflu #2 -Monitor CBC/CMP, temperatures -aspiration precautions discussed with RN Thank you for this consultation. Will continue to follow along with you. Subjective Allergies: Coded Allergies: No Known Allergies (Unverified , 01/12/19) Subjective Afebrile. RA. Mild leukocytosis Pt feels well and is very lively. Has not been requesting as frequent pain medication Daughter at bedside. Objective Vital Signs Last 24 Hour Vital Signs Date Time Temp Pulse Resp B/P (MAP) Pulse Ox O2 Delivery O2 Flow Rate FiO2 02/10/19 12:00 98.7 83 18 115/75 (88) 98 02/10/19 09:00 Room Air 02/10/19 08:00 98.0 85 18 109/73 (85) 96 02/10/19 04:00 98.1 74 18 112/73 (86) 99 02/10/19 00:00 97.5 80 18 115/64 (81) 97 02/09/19 20:00 97.5 77 18 111/69 (83) 96 02/09/19 19:21 Room Air 02/09/19 16:00 97.2 18 125/78 (94) 98 Height (Feet): 5 Height (Inches): 3.00 Weight (Pounds): 155 Objective Gen: NAD. calm CV: RRR. no rubs Resp: RRR. unlabored. Abd: hypoactive BS+. soft Ext: no edema Neuro: alert. Laboratory Tests Test 02/10/19 05:50 White Blood Count 12.6 K/UL (4.8-10.8) H Red Blood Count 3.29 M/UL (4.20-5.40) L Hemoglobin 10.1 G/DL (12.0-16.0) L Hematocrit 31.5 % (37.0-47.0) L Mean Corpuscular Volume 96 FL (80-99) Mean Corpuscular Hemoglobin 30.6 PG (27.0-31.0) Mean Corpuscular Hemoglobin Concent 32.0 G/DL (32.0-36.0) Red Cell Distribution Width 16.0 % (11.6-14.8) H Platelet Count 663 K/UL (150-450) H Mean Platelet Volume 5.6 FL (6.5-10.1) L Neutrophils (%) (Auto) 75.5 % (45.0-75.0) H Lymphocytes (%) (Auto) 11.4 % (20.0-45.0) L Monocytes (%) (Auto) 8.7 % (1.0-10.0) Eosinophils (%) (Auto) 3.1 % (0.0-3.0) H Basophils (%) (Auto) 1.4 % (0.0-2.0) Sodium Level 135 MMOL/L (136-145) L Potassium Level 5.0 MMOL/L (3.5-5.1) Chloride Level 106 MMOL/L (98-107) Carbon Dioxide Level 28 MMOL/L (21-32) Anion Gap 1 mmol/L (5-15) L Blood Urea Nitrogen 6 mg/dL (7-18) L Creatinine 1.0 MG/DL (0.55-1.30) Estimat Glomerular Filtration Rate 56.2 mL/min (>60) Glucose Level 87 MG/DL (74-106) Calcium Level 7.6 MG/DL (8.5-10.1) L Phosphorus Level 3.0 MG/DL (2.5-4.9) Magnesium Level 2.0 MG/DL (1.8-2.4) Total Bilirubin 0.4 MG/DL (0.2-1.0) Aspartate Amino Transf (AST/SGOT) 15 U/L (15-37) Alanine Aminotransferase (ALT/SGPT) 8 U/L (12-78) L Alkaline Phosphatase 179 U/L (46-116) H Total Protein 5.8 G/DL (6.4-8.2) L Albumin 1.4 G/DL (3.4-5.0) L Globulin 4.4 g/dL Albumin/Globulin Ratio 0.3 (1.0-2.7) L Current Medications Medications (Trade) Dose Ordered Sig/Zuleima Route PRN Reason Start Time Stop Time Status Last Admin Dose Admin Acetaminophen (Tylenol) 650 mg Q8H PRN ORAL Mild Pain/Temp > 100.5 01/12/19 17:30 02/11/19 17:29 02/10/19 06:28 Bisacodyl (Dulcolax) 10 mg BIDPRN PRN RECTAL Constipation 01/16/19 07:45 02/15/19 07:44 01/19/19 18:34 Ceftriaxone Sodium 1 gm/ Dextrose 55 ml @ 110 mls/hr Q24H IVPB 01/30/19 22:00 02/17/19 23:59 02/09/19 21:00 Dextrose (Dextrose 50%) 25 ml Q30M PRN IV Hypoglycemia 01/12/19 13:45 03/12/19 13:44 Dextrose (Dextrose 50%) 50 ml Q30M PRN IV Hypoglycemia 01/12/19 13:45 03/12/19 13:44 Enoxaparin Sodium (Lovenox) 60 mg Q12HR@0600,1800 SUBQ 01/20/19 18:00 02/19/19 17:59 02/10/19 05:35 Ergocalciferol (Drisdol) 50,000 intlu ONCE A WEEK ORAL 02/05/19 18:00 12/16/19 17:59 02/05/19 18:00 Fentanyl (Duragesic) 1 patch Q72H TDERMAL 01/25/19 12:00 02/14/19 11:59 02/09/19 12:26 Gabapentin (Neurontin) 300 mg THREE TIMES A DAY ORAL 01/19/19 18:00 02/18/19 17:59 02/10/19 13:27 Hydromorphone HCl (Dilaudid) 4 mg Q4H PRN ORAL Severe Breakthru Pain (>7) 02/06/19 15:15 02/13/19 15:14 02/09/19 10:56 Methylnaltrexone [place] (Relistor) 12 mg ONCE A WEEK SUBQ 02/01/19 09:00 03/03/19 08:59 Metronidazole 100 ml @ 100 mls/hr Q8HR IVPB 01/30/19 15:30 02/17/19 23:59 02/10/19 13:28 Miscellaneous Medication (fentaNYL Destruction) 1 ea Q72H MISC 01/25/19 11:59 02/24/19 11:58 02/09/19 12:26 Naloxone HCl (Narcan) 0.1 mg Q5M PRN IV Sedation scale 3 or 4 01/24/19 09:00 02/23/19 08:54 Ondansetron HCl (Zofran) 4 mg Q6H PRN IVP Nausea & Vomiting 01/12/19 13:45 03/12/19 13:44 02/10/19 10:49 Pantoprazole (Protonix) 40 mg EVERY 12 HOURS ORAL 01/27/19 21:00 02/26/19 20:59 02/10/19 08:59 Polyethylene Glycol (Miralax) 17 gm BEDTIME PRN ORAL constipation 01/22/19 10:30 02/15/19 20:59 Quetiapine Fumarate (SEROqueL) 25 mg Q12HR ORAL 02/10/19 21:00 03/12/19 20:59 Simethicone (Mylicon) 80 mg BIDPRN PRN ORAL gas 01/18/19 21:45 02/17/19 21:44 02/08/19 20:44 Spironolactone (Aldactone) 25 mg DAILY ORAL 02/08/19 09:30 03/10/19 09:29 02/08/19 10:03 Zolpidem Tartrate (Ambien) 5 mg HSPRN PRN ORAL Insomnia 02/03/19 21:15 02/17/19 21:14 02/09/19 23:54 Catalina Kirby MD Feb 10, 2019 13:44
--- NOTE | 2019-02-10 14:00 | NUR ---
PT NOTE Attempted to see patient for PT treatment. Patient declining to participate with PT, Elpidio RN aware, will follow.
--- NOTE | 2019-02-10 14:01 | Hematology/Onc Progress Note ---
Assessment/Plan Assessment/Plan Assessment/Plan # Pancreatic cancer, non-resectable, based on patient's info. Had a Abdominal pelvis CT reviewed 1. Appropriately positioned percutaneous left biliary drain with mild intrahepatic biliary ductal dilatation. 2. Ill-defined pancreatic head/proximal body mass, likely corresponding to stated history of pancreatic neoplasm. Please note evaluation of size and vascular involvement of pancreatic masses is incomplete prior examinations and without multiphasic pancreatic protocol. 3. 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 She has already started rx. --> gi recs noted No plans for GI procedures at this time --> surgical recommendations, no interventions at this time --> likely to continue chemo and XRT as needed with Dr. Elias Bernal (has received one chemo session) --> CA 19.9 688, in general with this presentation, poor prognosis --> if doesn't get chemo soon, likely to deteriorate, may be hospice candidate --> DW Dr. Shyann Bernal on 02/03/19 # Portal vein thrombosis with abd pain (MAY BE due to tumor encasement) --> may be contributor for abdominal pain --> appears to be chronic portal vein thrombosis on imaging --> minimize pain meds as much as possible --> started on lovenox, okay to transition to noac once discharged # Thrombocytosis, is secondary to underlying process --> currently improved --> less likely myeloproliferative --> smear has been reviewed --> trend 700-->800-->920-->1040k-->997-->304-->471 --> consider asa if worsens, doesn't need leukapheresis # Anemia of myelosuppressive chemo --> okay to continue on chemo at this time --> epo as stimulating factor if drops --> dw patient risks of dvt/VTE --> hgb trend: 9.1 # Leukocytosis is likely due to pna --> agree to trend, improved --> abx as per id --> wbc trend 22-->20-->18k-->34k-->22-->19k-->21k-->20-->16.3 -->20--> 11.2 --> ceftriaxone # Transaminitis --> Trend LFTs --> per gi --> advance diet as tolerated # Dvt ppx LOVENOX 1mg/sq bid Appreciate consultation and tesha RN Subjective HEENT: Denies: no symptoms, eye pain, blurred vision, tearing, double vision, ear pain, ear discharge, nose pain, nose congestion, throat pain, throat swelling, mouth pain, mouth swelling, other Cardiovascular: Denies: no symptoms, chest pain, edema, irregular heart rate, lightheadedness, palpitations, syncope, other Respiratory: Denies: no symptoms, cough, shortness of breath, SOB with excertion, SOB at rest, sputum, wheezing, other Gastrointestinal/Abdominal: Denies: no symptoms, abdomen distended, abdominal pain, black stools, tarry stools, blood in stool, constipated, diarrhea, difficulty swallowing, nausea, poor appetite, poor fluid intake, rectal bleeding , vomiting, other Genitourinary: Denies: no symptoms, burning, discharge, frequency, flank pain, hematuria, incontinence, pain, urgency, other Endocrine: Denies: no symptoms, excessive sweating, flushing, intolerance to cold, intolerance to heat, increased hunger, increased thirst, increased urine, unexplained weight gain, unexplained weight loss, other Hematologic/Lymphatic: Denies: no symptoms, anemia, easy bleeding, easy bruising, adenopathy, other Allergies: Coded Allergies: No Known Allergies (Unverified , 01/12/19) Subjective 01/13: no events to report, no f/c, no night sweats 01/14: no bleeding, on meds, ivf 01/15: no major changes, dw patient, some minor abd pain 01/18: no major events, drain is to gravity, seen by surg, no bleeidng 01/19: awake, alert, getting dressed this am, labs noted 01/20: no events, no bleeding reported, no major changes, no fc 01/21: appears on ct scan that she has a chronic portal vein thrombosis, reviewed results with rad 01/23: to be transferred to [facility] [place] for sob, and also okay with snf placement 01/24: no major changes, no bleeding reported, no f/c 01/25: no events, no complaints in the am, sleeping, no chills 01/26: no bleeding noted, no f/c, no night sweats 02/03: awake and alert, wbc 16, on ceftriaxone, h/h stable 02/04: no events, no bleeding, labs noted, feeling tired this am 02/05: no bleeding no fevers or chills, no night sweats 02/07: no events to report, no bleeding, 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 to go see her verification clerk dr today, have dw rn would be difficult 02/08: awake and alert, no acute events, h/h stable 02/09: no bleeding or chills, some nausea noted, given zofran 02/10: labs have been reviewed, no bleeding, wants to discuss prognosis today Objective Objective Current Medications Medications (Trade) Dose Ordered Sig/Zuleima Route PRN Reason Start Time Stop Time Status Last Admin Dose Admin Acetaminophen (Tylenol) 650 mg Q8H PRN ORAL Mild Pain/Temp > 100.5 01/12/19 17:30 02/11/19 17:29 02/10/19 06:28 Bisacodyl (Dulcolax) 10 mg BIDPRN PRN RECTAL Constipation 01/16/19 07:45 02/15/19 07:44 01/19/19 18:34 Ceftriaxone Sodium 1 gm/ Dextrose 55 ml @ 110 mls/hr Q24H IVPB 01/30/19 22:00 02/17/19 23:59 02/09/19 21:00 Dextrose (Dextrose 50%) 25 ml Q30M PRN IV Hypoglycemia 01/12/19 13:45 03/12/19 13:44 Dextrose (Dextrose 50%) 50 ml Q30M PRN IV Hypoglycemia 01/12/19 13:45 03/12/19 13:44 Enoxaparin Sodium (Lovenox) 60 mg Q12HR@0600,1800 SUBQ 01/20/19 18:00 02/19/19 17:59 02/10/19 05:35 Ergocalciferol (Drisdol) 50,000 intlu ONCE A WEEK ORAL 02/05/19 18:00 03/07/19 17:59 02/05/19 18:00 Fentanyl (Duragesic) 1 patch Q72H TDERMAL 01/25/19 12:00 02/14/19 11:59 02/09/19 12:26 Gabapentin (Neurontin) 300 mg THREE TIMES A DAY ORAL 01/19/19 18:00 02/18/19 17:59 02/10/19 13:27 Hydromorphone HCl (Dilaudid) 4 mg Q4H PRN ORAL Severe Breakthru Pain (>7) 02/06/19 15:15 02/13/19 15:14 02/10/19 13:43 Methylnaltrexone [place] (Relistor) 12 mg ONCE A WEEK SUBQ 02/01/19 09:00 03/03/19 08:59 Metronidazole 100 ml @ 100 mls/hr Q8HR IVPB 01/30/19 15:30 02/17/19 23:59 02/10/19 13:28 Miscellaneous Medication (fentaNYL Destruction) 1 ea Q72H MISC 01/25/19 11:59 02/24/19 11:58 02/09/19 12:26 Naloxone HCl (Narcan) 0.1 mg Q5M PRN IV Sedation scale 3 or 4 01/24/19 09:00 02/23/19 08:54 Ondansetron HCl (Zofran) 4 mg Q6H PRN IVP Nausea & Vomiting 01/12/19 13:45 03/12/19 13:44 02/10/19 10:49 Pantoprazole (Protonix) 40 mg EVERY 12 HOURS ORAL 01/27/19 21:00 02/26/19 20:59 02/10/19 08:59 Polyethylene Glycol (Miralax) 17 gm BEDTIME PRN ORAL constipation 01/22/19 10:30 02/15/19 20:59 Quetiapine Fumarate (SEROqueL) 25 mg Q12HR ORAL 02/10/19 21:00 03/12/19 20:59 Simethicone (Mylicon) 80 mg BIDPRN PRN ORAL gas 01/18/19 21:45 02/17/19 21:44 02/10/19 13:43 Spironolactone (Aldactone) 25 mg DAILY ORAL 02/08/19 09:30 03/10/19 09:29 02/08/19 10:03 Zolpidem Tartrate (Ambien) 5 mg HSPRN PRN ORAL Insomnia 02/03/19 21:15 02/17/19 21:14 02/09/19 23:54 Last 24 Hour Vital Signs Date Time Temp Pulse Resp B/P (MAP) Pulse Ox O2 Delivery O2 Flow Rate FiO2 02/10/19 12:00 98.7 83 18 115/75 (88) 98 02/10/19 09:00 Room Air 02/10/19 08:00 98.0 85 18 109/73 (85) 96 02/10/19 04:00 98.1 74 18 112/73 (86) 99 02/10/19 00:00 97.5 80 18 115/64 (81) 97 02/09/19 20:00 97.5 77 18 111/69 (83) 96 02/09/19 19:21 Room Air 02/09/19 16:00 97.2 18 125/78 (94) 98 02/09/19 12:00 97.5 12 130/83 (99) 98 02/09/19 09:00 Room Air 02/09/19 08:00 97.0 80 14 114/78 (90) 98 02/09/19 04:00 97.8 70 18 113/68 (83) 96 02/09/19 00:00 97.5 73 16 117/69 (85) 97 02/08/19 20:00 97.5 73 16 113/65 (81) 97 02/08/19 20:00 Room Air 02/08/19 16:00 97.5 76 18 117/79 (92) 96 Intake and Output 02/09/19 02/10/19 19:00 07:00 Intake Total 820 ml 155 ml Output Total 1325 ml Balance 820 ml -1170 ml Intake Oral 720 ml IV Total 100 ml 155 ml Other 1325 ml # Voids 3 4 # Bowel Movements 2 1 Labs Test 02/08/19 05:35 02/09/19 05:25 02/10/19 05:50 White Blood Count 11.2 K/UL (4.8-10.8) 12.3 K/UL (4.8-10.8) 12.6 K/UL (4.8-10.8) Red Blood Count 2.95 M/UL (4.20-5.40) 3.39 M/UL (4.20-5.40) 3.29 M/UL (4.20-5.40) Hemoglobin 9.1 G/DL (12.0-16.0) 10.5 G/DL (12.0-16.0) 10.1 G/DL (12.0-16.0) Hematocrit 27.1 % (37.0-47.0) 32.3 % (37.0-47.0) 31.5 % (37.0-47.0) Mean Corpuscular Volume 92 FL (80-99) 96 FL (80-99) 96 FL (80-99) Mean Corpuscular Hemoglobin 31.0 PG (27.0-31.0) 30.9 PG (27.0-31.0) 30.6 PG (27.0-31.0) Mean Corpuscular Hemoglobin Concent 33.8 G/DL (32.0-36.0) 32.4 G/DL (32.0-36.0) 32.0 G/DL (32.0-36.0) Red Cell Distribution Width 13.8 % (11.6-14.8) 16.1 % (11.6-14.8) 16.0 % (11.6-14.8) Platelet Count 471 K/UL (150-450) 641 K/UL (150-450) 663 K/UL (150-450) Mean Platelet Volume 5.6 FL (6.5-10.1) 5.8 FL (6.5-10.1) 5.6 FL (6.5-10.1) Neutrophils (%) (Auto) 75.5 % (45.0-75.0) 79.9 % (45.0-75.0) 75.5 % (45.0-75.0) Lymphocytes (%) (Auto) 10.6 % (20.0-45.0) 10.3 % (20.0-45.0) 11.4 % (20.0-45.0) Monocytes (%) (Auto) 10.2 % (1.0-10.0) 7.0 % (1.0-10.0) 8.7 % (1.0-10.0) Eosinophils (%) (Auto) 2.0 % (0.0-3.0) 1.7 % (0.0-3.0) 3.1 % (0.0-3.0) Basophils (%) (Auto) 1.7 % (0.0-2.0) 1.1 % (0.0-2.0) 1.4 % (0.0-2.0) Sodium Level 140 MMOL/L (136-145) 139 MMOL/L (136-145) 135 MMOL/L (136-145) Potassium Level 3.4 MMOL/L (3.5-5.1) 4.8 MMOL/L (3.5-5.1) 5.0 MMOL/L (3.5-5.1) Chloride Level 107 MMOL/L (98-107) 107 MMOL/L (98-107) 106 MMOL/L (98-107) Carbon Dioxide Level 25 MMOL/L (21-32) 25 MMOL/L (21-32) 28 MMOL/L (21-32) Anion Gap 8 mmol/L (5-15) 7 mmol/L (5-15) 1 mmol/L (5-15) Blood Urea Nitrogen 6 mg/dL (7-18) 5 mg/dL (7-18) 6 mg/dL (7-18) Creatinine 0.9 MG/DL (0.55-1.30) 1.0 MG/DL (0.55-1.30) 1.0 MG/DL (0.55-1.30) Estimat Glomerular Filtration Rate > 60 mL/min (>60) 56.2 mL/min (>60) 56.2 mL/min (>60) Glucose Level 87 MG/DL (74-106) 94 MG/DL (74-106) 87 MG/DL (74-106) Calcium Level 7.0 MG/DL (8.5-10.1) 7.8 MG/DL (8.5-10.1) 7.6 MG/DL (8.5-10.1) Phosphorus Level 3.4 MG/DL (2.5-4.9) 3.0 MG/DL (2.5-4.9) Magnesium Level 1.0 MG/DL (1.8-2.4) 2.0 MG/DL (1.8-2.4) Total Bilirubin 0.3 MG/DL (0.2-1.0) 0.4 MG/DL (0.2-1.0) Aspartate Amino Transf (AST/SGOT) 13 U/L (15-37) 15 U/L (15-37) Alanine Aminotransferase (ALT/SGPT) 8 U/L (12-78) 8 U/L (12-78) Alkaline Phosphatase 126 U/L (46-116) 179 U/L (46-116) Total Protein 5.3 G/DL (6.4-8.2) 5.8 G/DL (6.4-8.2) Albumin 1.3 G/DL (3.4-5.0) 1.4 G/DL (3.4-5.0) Globulin 4.0 g/dL 4.4 g/dL Albumin/Globulin Ratio 0.3 (1.0-2.7) 0.3 (1.0-2.7) Height (Feet): 5 Height (Inches): 3.00 Weight (Pounds): 155 Objective Gen: nad Pulm: Ctab Cardiovascular: RSR Abdomen: soft, flat, non-tender, present bowel sounds ext-int drain Extremities: no edema, no tenderness, no cyanosis Roberto Davidson MD Feb 10, 2019 14:01
--- NOTE | 2019-02-10 14:11 | NUR ---
*-* INSURANCE *-* ALL AVAILABLE CLINICALS HAVE BEEN FAXED TO: REF#[id number] - FOR TRACKING PURPOSES THIS IS SHARED RISK NO CM ASSIGNED PH#[phone] FAX#[phone] REVIEWS[facility]CLINICALS & [facility]#[id number] CM: TAMMY PH#[phone] EXT [phone] FAX#[phone] REVIEWS/CLINICALS
[2019-02-10 16:00] VITALS: BP 119/82
--- NOTE | 2019-02-10 16:13 | NUR ---
SKEIN TIER NOTES PT ACCEPTED TO [facility] SKILL[facility]. ROOM 20 BED B. NURSE TO CALL REPORT TO [phone]. [facility] TO TRANSPORT THE PT WAITING FOR ETA.
[2019-02-10] MEDS ORDERED: METRONIDAZOLE500 MG ORAL (16:59)
[2019-02-10] MEDS ORDERED: CIPROFLOXACIN250 MG PO (17:00)
[2019-02-10] MEDS ORDERED: GABAPENTIN300 MG ORAL (17:20)
[2019-02-10] MEDS ORDERED: PROTONIX40 MG ORAL (17:20)
[2019-02-10] MEDS ORDERED: POTASSIUM CHLO20 ME1 ORAL (17:23)
[2019-02-10] MEDS ORDERED: QUETIAPINE FUMA25 MG ORAL (17:24)
[2019-02-10] MEDS ORDERED: SPIRONOLACTONE25 MG ORAL (17:24)
[2019-02-10] MEDS ORDERED: VITAMIN D250000 UNI1 ORAL (17:25)
[2019-02-10] MEDS ORDERED: RELISTOR12 MG/0.1 SUBQ (17:26)
[2019-02-10] MEDS ORDERED: MIRALAX17 G2 ORAL (17:27)
[2019-02-10] MEDS ORDERED: AMBIEN5 MG ORAL (17:27)
[2019-02-10] MEDS ORDERED: SIMETHICONE80 MG ORAL (17:27)
[2019-02-10] MEDS ORDERED: DURAGESIC1 EA TOPIC (17:27)
[2019-02-10] MEDS ORDERED: ACETAMINOPHEN325 M1 ORAL (17:28)
[2019-02-10] MEDS ORDERED: BISACODYL5 MG ORAL (17:28)
[2019-02-10] MEDS ORDERED: HYDROMORPHONE HC4 M1 ORAL (17:29)
[2019-02-10] MEDS ORDERED: ELIQUIS2.5 MG PO (17:36)
--- NOTE | 2019-02-10 17:36 | NUR ---
NURSE NOTES: DR ALBARADO MADE AWARE OF DISCHARGE AND CLARIFIED PT WILL CONTINUE K-DUR 40MEQ DAILY AND SNF TO MONITOR CMP TWICE A WEEK FOR ELECTROLYTE LEVELS. DR BECERRA MADE AWARE OF DISCHARGE, PLATELET LEVEL 663 TODAA AND CLARIFIED PT TO SWITCH TO ELIQUIS 2.5MG PO BID UPON DISCHARGE. NORM MADE AWAR EOF DISCHARGE AND CLARIFIED UPON DISCHARGE TO START FLAGYL 500MG Q8H X 7 DAYS AND CIPROFLOXACIN 500MG BID X 7 DAYS. ORTIZ MICHEL, MADE AWARE OF DISCHARGE AND CLARIFIED TO CONTINUE RELISTOR 12MG SUBQ ONCE A WEEK, DURAGESIC 25MCG/HR PATCH Q72HR, AND DILAUDID 4MH PO Q4H PRN PAIN. DR WALTERS MADE AWARE OF DISCHARGE AND ORDERS TO KEEP BILIARY DRAIN DRAINING TO GRAVITY.
--- NOTE | 2019-02-10 17:41 | Surgery Progress Note ---
Surgery Progress Note Subjective Symptoms: improved, pain absent, tolerating diet, voiding well, passing flatus Objective Last 24 Hour Vital Signs Date Time Temp Pulse Resp B/P (MAP) Pulse Ox O2 Delivery O2 Flow Rate FiO2 02/10/19 16:00 97.8 81 18 119/82 (94) 97 02/10/19 12:00 98.7 83 18 115/75 (88) 98 02/10/19 09:00 Room Air 02/10/19 08:00 98.0 85 18 109/73 (85) 96 02/10/19 04:00 98.1 74 18 112/73 (86) 99 02/10/19 00:00 97.5 80 18 115/64 (81) 97 02/09/19 20:00 97.5 77 18 111/69 (83) 96 02/09/19 19:21 Room Air I&O Intake and Output 02/09/19 02/10/19 19:00 07:00 Intake Total 820 ml 155 ml Output Total 1325 ml Balance 820 ml -1170 ml Intake Oral 720 ml IV Total 100 ml 155 ml Other 1325 ml # Voids 3 4 # Bowel Movements 2 1 Dressing: dry Wound: clean Drains: other Cardiovascular: RSR Respiratory: decreased breath sounds Abdomen: soft, non-tender, present bowel sounds, other, non-distended Extremities: no edema, no tenderness, no cyanosis Laboratory Tests Test 02/10/19 05:50 White Blood Count 12.6 K/UL (4.8-10.8) H Red Blood Count 3.29 M/UL (4.20-5.40) L Hemoglobin 10.1 G/DL (12.0-16.0) L Hematocrit 31.5 % (37.0-47.0) L Mean Corpuscular Volume 96 FL (80-99) Mean Corpuscular Hemoglobin 30.6 PG (27.0-31.0) Mean Corpuscular Hemoglobin Concent 32.0 G/DL (32.0-36.0) Red Cell Distribution Width 16.0 % (11.6-14.8) H Platelet Count 663 K/UL (150-450) H Mean Platelet Volume 5.6 FL (6.5-10.1) L Neutrophils (%) (Auto) 75.5 % (45.0-75.0) H Lymphocytes (%) (Auto) 11.4 % (20.0-45.0) L Monocytes (%) (Auto) 8.7 % (1.0-10.0) Eosinophils (%) (Auto) 3.1 % (0.0-3.0) H Basophils (%) (Auto) 1.4 % (0.0-2.0) Sodium Level 135 MMOL/L (136-145) L Potassium Level 5.0 MMOL/L (3.5-5.1) Chloride Level 106 MMOL/L (98-107) Carbon Dioxide Level 28 MMOL/L (21-32) Anion Gap 1 mmol/L (5-15) L Blood Urea Nitrogen 6 mg/dL (7-18) L Creatinine 1.0 MG/DL (0.55-1.30) Estimat Glomerular Filtration Rate 56.2 mL/min (>60) Glucose Level 87 MG/DL (74-106) Calcium Level 7.6 MG/DL (8.5-10.1) L Phosphorus Level 3.0 MG/DL (2.5-4.9) Magnesium Level 2.0 MG/DL (1.8-2.4) Total Bilirubin 0.4 MG/DL (0.2-1.0) Aspartate Amino Transf (AST/SGOT) 15 U/L (15-37) Alanine Aminotransferase (ALT/SGPT) 8 U/L (12-78) L Alkaline Phosphatase 179 U/L (46-116) H Total Protein 5.8 G/DL (6.4-8.2) L Albumin 1.4 G/DL (3.4-5.0) L Globulin 4.4 g/dL Albumin/Globulin Ratio 0.3 (1.0-2.7) L Plan Problems: (1) Abdominal pain Assessment & Plan: 63-year-old female patient with history of recently diagnosed pancreatic cancer in November 2018 presented to the emergency room at [facility] with complaint of abdominal pain for approximately 1 hour. Patient is status post a biliary drain placement at [facility] approximately 1 week ago. She reported that she had a first treatment of chemotherapy this past Thursday. The patient denied any nausea vomiting, denies any constipation or diarrhea. She states her pain medication was unable to relieve her pain. no fever or chills. labs as below. C Tnoted. surgery called to assist with care and management. tube checked Impression: Diffusely abnormal bowel uptake. Given findings on recent CT scan, this most likely represents enteritis, most likely infectious. Abnormal uptake in the face or upper neck to the left of midline, exact location uncertain. Consider neck CT for better characterization Mildly prominent pulmonary uptake, significance doubted okay for diet tube to drain IV abx d/c planning for SNF f/u with pcp / onc outpatient stable otherwise from surgical standpoint no acute surgical intervention planned Probably has extensive tumor burden given interventions and findings noted. No surgical recommendation at this time. Possible that fluid collection in case in the abdomen infected but to operate on this would be ill advised at this time and patient's current condition. Continue with antibiotics iv fluids trend labs will monitor and follow with exam thank you (2) Biliary drain displacement Assessment & Plan: Daughter was able to inform me with a lot of history. Seems patient unresectable initially and attempted biliary drain placed endoscopically but unsuccessful. A external biliary drain was placed by radiology. Would patient was getting her Port-A-Cath placed a another radiologist felt he could place a internal/external biliary drain and he was able to successfully place a internal/external biliary drain. Had the trade Since. Fell off and she has been without it to drainage recently. In evaluating the trade she has some bilious output from the drain and on imaging drain looks to be appropriately placed. Labs reviewed stable. drain placed to gravity as leaking Drain putting out a ton since placed on 2 bag IMPRESSION: 1. Appropriately positioned percutaneous left biliary drain with mild intrahepatic biliary ductal dilatation. 2. Ill-defined pancreatic head/proximal body mass, likely corresponding to stated history of pancreatic neoplasm. Please note evaluation of size and vascular involvement of pancreatic masses is incomplete prior examinations and without multiphasic pancreatic protocol. 3. 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 SMV confluence is not visualized. 4. Color wall thickening with pericholecystic fluid; in the absence of distended gallbladder, these findings are critical for acute pancreatitis and clinical correlation is recommended. Transhepatic biliary drain noted. 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 Abnormal liver with area of peripheral hypoechogenicity along the posterior right lobe margin. Suggest further evaluation with contrast CT. Obscured pancreas and aorta due to bowel gas. . Interval development of moderate small bowel dilatation. Transition to relatively decompressed terminal ileum demonstrated indicating this is probably a mechanical bowel obstruction. Pneumatosis suspected within one of the proximal small bowel segments in the upper abdomen. No evidence of perforation. Development of multiloculated ascites with prominent collections contiguous with the caudal end of the right lobe of the liver capsule, Morison's pouch and inferior to the right kidney. Other generalized mild ascites noted as well. Internal/external transhepatic biliary drainage catheter in good position. No imaging evidence for catheter malfunction or biliary obstruction. CT noted. likely internal leakage from internal external drain as it was noted to be backing put few days ago hence placed on drainage bag recommend outpatient f/u with oncology and her GI at primary facility to discuss placement of internal metallic larger drain and remove internal / external drain s/p abd drain placement micro noted labs improved on abx s/p new drain 02/01/19 - removed 02/07 / d/c to SNF. f/u with outpatient onc f/u with outpatient GI for consideration of metallic biliary drain now that she has internal external thank you (3) Pancreatic cancer Assessment & Plan: Pancreatic cancer, non-resectable, based on patient's info. Had a Abdominal pelvis CT reviewed 1. Appropriately positioned percutaneous left biliary drain with mild intrahepatic biliary ductal dilatation. 2. Ill- defined pancreatic head/proximal body mass, likely corresponding to stated history of pancreatic neoplasm. Please note evaluation of size and vascular involvement of pancreatic masses is incomplete prior examinations and without multiphasic pancreatic protocol. 3. 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 She has already started rx Jim Gates Feb 10, 2019 17:41
--- NOTE | 2019-02-10 17:42 | NUR ---
NURSE NOTES: RN GAVE REPORT TO CAITIE ARGUELLO, AT [facility]. PER JOS, SHE SPOKE TO HER DON AND THEY WILL NOT BE ABLE TO ACCEPT PT DUE TO HER DIARRHEA. RN MADE JOS AWARE OF ABDOMINAL ISSUES AND BILIARY DRAIN. ORDERS TO MONITOR CMP TWICE A WEEK TO MONITOR ELECTROLYTES. PER JOS, PLS CALL BACK TOMORROW TO UPDATE ON STATUS. RN SPOKE TO KARLO AND ROXANNE HUBBARD, AND MADE AWARE.
--- NOTE | 2019-02-10 19:30 | NUR ---
NURSE NOTES: Patient in bed, awake, alert and verbally responsive. Able to make needs known. Respiration is even and unlabored. No complaint of pain or discomfort noted. Abdomen is soft and non distended. IV site noted. Skin is warm and dry to touch. Bed in low and locked position. Drain on the left quadrant noted. Call light is at bedside. Will continue plan of care.
--- NOTE | 2019-02-10 19:34 | NUR ---
HAND-OFF: Report given to Jimmie DONOVAN RN.
[2019-02-10 20:00] VITALS: BP 115/74
[2019-02-10] MEDS: cefTRIAXone 1gm/D5W 55ml IVPB SCH ×2 (20:52)
[2019-02-11] VITALS: BP 120/76
[2019-02-11 04:00] VITALS: BP 123/73
[2019-02-11 06:19] LABS: BASOPHILS % (AUTO) 1.6 % (0.0-2.0); EOSINOPHILS % (AUTO) 3.7 % (0.0-3.0); HEMATOCRIT 28.8 % (37.0-47.0); HEMOGLOBIN 9.4 G/DL (12.0-16.0); LYMPHOCYTES % (AUTO) 16.5 % (20.0-45.0); MEAN CORPUSCULAR VOLUME 95 FL (80-99); NEUTROPHILS % (AUTO) 68.3 % (45.0-75.0); PLATELET COUNT 629 K/UL (150-450); RED BLOOD COUNT 3.04 M/UL (4.20-5.40); RED CELL DISTRIBUTION WIDTH 16.1 % (11.6-14.8)
[2019-02-11] MEDS: metroNIDAZOLE 500mg Premix IVPB SCH ×2 (06:27→13:12)
[2019-02-11] MEDS: Enoxaparin 60mg Inj SUBQ SCH (06:28)
--- NOTE | 2019-02-11 06:30 | NUR ---
NURSE NOTES: Patient in bed, awake, alert. Had a normal bowel movement. Will let next shift nurse to follow up during discharge.
--- NOTE | 2019-02-11 06:47 | NUR ---
NURSE NOTES: Complained of a headache, given PRN tylenol, will reassess. Call light is at bedside. Will continue plan of care.
--- NOTE | 2019-02-11 07:26 | NUR ---
HAND-OFF: Report given to CAITIE Lee.
--- NOTE | 2019-02-11 07:27 | NUR ---
NURSE NOTES: Received patient on bed awake. No SOB or acute distress. IV line intact and patent. Biliary drain intact and patent, draining greenish brownish fluid. HOB elevated. Bed locked in lowest position. Call light within reach. Will continue plan of care.
[2019-02-11 07:33] LABS: ANION GAP 3 mmol/L (5-15); BLOOD UREA NITROGEN 4 mg/dL (7-18); CALCIUM 7.4 MG/DL (8.5-10.1); CARBON DIOXIDE 29 MMOL/L (21-32); CHLORIDE 106 MMOL/L (98-107); POTASSIUM 3.6 MMOL/L (3.5-5.1); SODIUM 138 MMOL/L (136-145)
[2019-02-11 08:00] VITALS: BP 107/86
--- NOTE | 2019-02-11 08:19 | Hematology/Onc Progress Note ---
Assessment/Plan Assessment/Plan Assessment/Plan # Pancreatic cancer, non-resectable, based on patient's info. Had a Abdominal pelvis CT reviewed 1. Appropriately positioned percutaneous left biliary drain with mild intrahepatic biliary ductal dilatation. 2. Ill-defined pancreatic head/proximal body mass, likely corresponding to stated history of pancreatic neoplasm. Please note evaluation of size and vascular involvement of pancreatic masses is incomplete prior examinations and without multiphasic pancreatic protocol. 3. 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 She has already started rx. --> gi recs noted No plans for GI procedures at this time --> surgical recommendations, no interventions at this time --> likely to continue chemo and XRT as needed with Dr. Elias Bernal (has received one chemo session) --> CA 19.9 688, in general with this presentation, poor prognosis --> if doesn't get chemo soon, likely to deteriorate, may be hospice candidate --> DW Dr. Shyann Bernal on 02/03/19, to return to [facility] once discharged # Portal vein thrombosis with abd pain (MAY BE due to tumor encasement) --> may be contributor for abdominal pain --> appears to be chronic portal vein thrombosis on imaging --> minimize pain meds as much as possible --> started on lovenox, okay to transition to noac once discharged # Thrombocytosis, is secondary to underlying process --> currently improved --> less likely myeloproliferative --> smear has been reviewed --> trend 700-->800-->920-->1040k-->997-->304-->471 --> consider asa if worsens, doesn't need leukapheresis # Anemia of myelosuppressive chemo --> okay to continue on chemo at this time --> epo as stimulating factor if drops --> dw patient risks of dvt/VTE --> hgb trend: 9.1 # Leukocytosis is likely due to pna --> agree to trend, improved --> abx as per id --> wbc trend 22-->20-->18k-->34k-->22-->19k-->21k-->20-->16.3 -->20--> 11.2--> 10 --> ceftriaxone # Transaminitis --> Trend LFTs --> per gi --> advance diet as tolerated # Dvt ppx LOVENOX 1mg/sq bid Appreciate consultation and tesha RN Subjective Constitutional: Denies: no symptoms, chills, fever, malaise, weakness, other HEENT: Denies: no symptoms, eye pain, blurred vision, tearing, double vision, ear pain, ear discharge, nose pain, nose congestion, throat pain, throat swelling, mouth pain, mouth swelling, other Cardiovascular: Denies: no symptoms, chest pain, edema, irregular heart rate, lightheadedness, palpitations, syncope, other Gastrointestinal/Abdominal: Denies: no symptoms, abdomen distended, abdominal pain, black stools, tarry stools, blood in stool, constipated, diarrhea, difficulty swallowing, nausea, poor appetite, poor fluid intake, rectal bleeding , vomiting, other Genitourinary: Denies: no symptoms, burning, discharge, frequency, flank pain, hematuria, incontinence, pain, urgency, other Neurologic/Psychiatric: Denies: no symptoms, anxiety, depressed, emotional problems, headache, numbness, paresthesia, pre-existing deficit, seizure, tingling, tremors, weakness, other Endocrine: Denies: no symptoms, excessive sweating, flushing, intolerance to cold, intolerance to heat, increased hunger, increased thirst, increased urine, unexplained weight gain, unexplained weight loss, other Allergies: Coded Allergies: No Known Allergies (Unverified , 01/12/19) Subjective 01/13: no events to report, no f/c, no night sweats 01/14: no bleeding, on meds, ivf 01/15: no major changes, dw patient, some minor abd pain 01/18: no major events, drain is to gravity, seen by surg, no bleeidng 01/19: awake, alert, getting dressed this am, labs noted 01/20: no events, no bleeding reported, no major changes, no fc 01/21: appears on ct scan that she has a chronic portal vein thrombosis, reviewed results with rad 01/23: to be transferred to [facility] for sob, and also okay with snf placement 01/24: no major changes, no bleeding reported, no f/c 01/25: no events, no complaints in the am, sleeping, no chills 01/26: no bleeding noted, no f/c, no night sweats 02/03: awake and alert, wbc 16, on ceftriaxone, h/h stable 02/04: no events, no bleeding, labs noted, feeling tired this am 02/05: no bleeding no fevers or chills, no night sweats 02/07: no events to report, no bleeding, 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, have dw rn would be difficult 02/08: awake and alert, no acute events, h/h stable 02/09: no bleeding or chills, some nausea noted, given zofran 02/10: labs have been reviewed, no bleeding, wants to discuss prognosis today 02/11: no f/c, no bleeding noted, potential dc but with diarrhea Objective Objective Current Medications Medications (Trade) Dose Ordered Sig/Zuleima Route PRN Reason Start Time Stop Time Status Last Admin Dose Admin Acetaminophen (Tylenol) 650 mg Q8H PRN ORAL Mild Pain/Temp > 100.5 01/12/19 17:30 02/11/19 17:29 02/11/19 06:45 Bisacodyl (Dulcolax) 10 mg BIDPRN PRN RECTAL Constipation 01/16/19 07:45 02/15/19 07:44 01/19/19 18:34 Ceftriaxone Sodium 1 gm/ Dextrose 55 ml @ 110 mls/hr Q24H IVPB 01/30/19 22:00 02/17/19 23:59 02/10/19 20:52 Dextrose (Dextrose 50%) 25 ml Q30M PRN IV Hypoglycemia 01/12/19 13:45 03/12/19 13:44 Dextrose (Dextrose 50%) 50 ml Q30M PRN IV Hypoglycemia 01/12/19 13:45 03/12/19 13:44 Enoxaparin Sodium (Lovenox) 60 mg Q12HR@0600,1800 SUBQ 01/20/19 18:00 02/19/19 17:59 02/11/19 06:28 Ergocalciferol (Drisdol) 50,000 intlu ONCE A WEEK ORAL 02/05/19 18:00 03/07/19 17:59 02/05/19 18:00 Fentanyl (Duragesic) 1 patch Q72H TDERMAL 01/25/19 12:00 02/14/19 11:59 02/09/19 12:26 Gabapentin (Neurontin) 300 mg THREE TIMES A DAY ORAL 01/19/19 18:00 02/18/19 17:59 02/10/19 17:49 Hydromorphone HCl (Dilaudid) 4 mg Q4H PRN ORAL Severe Breakthru Pain (>7) 02/06/19 15:15 02/13/19 15:14 02/10/19 13:43 Methylnaltrexone [place] (Relistor) 12 mg ONCE A WEEK SUBQ 02/01/19 09:00 03/03/19 08:59 Metronidazole 100 ml @ 100 mls/hr Q8HR IVPB 01/30/19 15:30 02/17/19 23:59 02/11/19 06:27 Miscellaneous Medication (fentaNYL Destruction) 1 ea Q72H MISC 01/25/19 11:59 02/24/19 11:58 02/09/19 12:26 Naloxone HCl (Narcan) 0.1 mg Q5M PRN IV Sedation scale 3 or 4 01/24/19 09:00 02/23/19 08:54 Ondansetron HCl (Zofran) 4 mg Q6H PRN IVP Nausea & Vomiting 01/12/19 13:45 03/12/19 13:44 02/10/19 10:49 Pantoprazole (Protonix) 40 mg EVERY 12 HOURS ORAL 01/27/19 21:00 02/26/19 20:59 02/10/19 20:51 Polyethylene Glycol (Miralax) 17 gm BEDTIME PRN ORAL constipation 01/22/19 10:30 02/15/19 20:59 Quetiapine Fumarate (SEROqueL) 25 mg Q12HR ORAL 02/10/19 21:00 03/12/19 20:59 02/10/19 23:17 Simethicone (Mylicon) 80 mg BIDPRN PRN ORAL gas 01/18/19 21:45 02/17/19 21:44 02/10/19 23:21 Spironolactone (Aldactone) 25 mg DAILY ORAL 02/08/19 09:30 03/10/19 09:29 02/08/19 10:03 Zolpidem Tartrate (Ambien) 5 mg HSPRN PRN ORAL Insomnia 02/03/19 21:15 02/17/19 21:14 02/09/19 23:54 Last 24 Hour Vital Signs Date Time Temp Pulse Resp B/P (MAP) Pulse Ox O2 Delivery O2 Flow Rate FiO2 02/11/19 04:00 98.4 75 18 123/73 (90) 99 02/11/19 00:00 98.3 76 18 120/76 (91) 97 02/10/19 20:40 Room Air 02/10/19 20:00 98.0 78 20 115/74 (88) 98 02/10/19 16:00 97.8 81 18 119/82 (94) 97 02/10/19 12:00 98.7 83 18 115/75 (88) 98 02/10/19 09:00 Room Air 02/10/19 08:00 98.0 85 18 109/73 (85) 96 02/10/19 04:00 98.1 74 18 112/73 (86) 99 02/10/19 00:00 97.5 80 18 115/64 (81) 97 02/09/19 20:00 97.5 77 18 111/69 (83) 96 02/09/19 19:21 Room Air 02/09/19 16:00 97.2 18 125/78 (94) 98 02/09/19 12:00 97.5 12 130/83 (99) 98 02/09/19 09:00 Room Air Intake and Output 02/10/19 02/11/19 19:00 07:00 Intake Total 1140 ml 155 ml Output Total 350 ml 550 ml Balance 790 ml -395 ml Intake Oral 1040 ml IV Total 100 ml 155 ml Other 350 ml 550 ml # Voids 7 2 # Bowel Movements 5 2 Labs Test 02/09/19 05:25 02/10/19 05:50 02/11/19 05:00 White Blood Count 12.3 K/UL (4.8-10.8) 12.6 K/UL (4.8-10.8) 10.0 K/UL (4.8-10.8) Red Blood Count 3.39 M/UL (4.20-5.40) 3.29 M/UL (4.20-5.40) 3.04 M/UL (4.20-5.40) Hemoglobin 10.5 G/DL (12.0-16.0) 10.1 G/DL (12.0-16.0) 9.4 G/DL (12.0-16.0) Hematocrit 32.3 % (37.0-47.0) 31.5 % (37.0-47.0) 28.8 % (37.0-47.0) Mean Corpuscular Volume 96 FL (80-99) 96 FL (80-99) 95 FL (80-99) Mean Corpuscular Hemoglobin 30.9 PG (27.0-31.0) 30.6 PG (27.0-31.0) 31.1 PG (27.0-31.0) Mean Corpuscular Hemoglobin Concent 32.4 G/DL (32.0-36.0) 32.0 G/DL (32.0-36.0) 32.8 G/DL (32.0-36.0) Red Cell Distribution Width 16.1 % (11.6-14.8) 16.0 % (11.6-14.8) 16.1 % (11.6-14.8) Platelet Count 641 K/UL (150-450) 663 K/UL (150-450) 629 K/UL (150-450) Mean Platelet Volume 5.8 FL (6.5-10.1) 5.6 FL (6.5-10.1) 5.5 FL (6.5-10.1) Neutrophils (%) (Auto) 79.9 % (45.0-75.0) 75.5 % (45.0-75.0) 68.3 % (45.0-75.0) Lymphocytes (%) (Auto) 10.3 % (20.0-45.0) 11.4 % (20.0-45.0) 16.5 % (20.0-45.0) Monocytes (%) (Auto) 7.0 % (1.0-10.0) 8.7 % (1.0-10.0) 10.0 % (1.0-10.0) Eosinophils (%) (Auto) 1.7 % (0.0-3.0) 3.1 % (0.0-3.0) 3.7 % (0.0-3.0) Basophils (%) (Auto) 1.1 % (0.0-2.0) 1.4 % (0.0-2.0) 1.6 % (0.0-2.0) Sodium Level 139 MMOL/L (136-145) 135 MMOL/L (136-145) 138 MMOL/L (136-145) Potassium Level 4.8 MMOL/L (3.5-5.1) 5.0 MMOL/L (3.5-5.1) 3.6 MMOL/L (3.5-5.1) Chloride Level 107 MMOL/L (98-107) 106 MMOL/L (98-107) 106 MMOL/L (98-107) Carbon Dioxide Level 25 MMOL/L (21-32) 28 MMOL/L (21-32) 29 MMOL/L (21-32) Anion Gap 7 mmol/L (5-15) 1 mmol/L (5-15) 3 mmol/L (5-15) Blood Urea Nitrogen 5 mg/dL (7-18) 6 mg/dL (7-18) 4 mg/dL (7-18) Creatinine 1.0 MG/DL (0.55-1.30) 1.0 MG/DL (0.55-1.30) 1.0 MG/DL (0.55-1.30) Estimat Glomerular Filtration Rate 56.2 mL/min (>60) 56.2 mL/min (>60) 56.2 mL/min (>60) Glucose Level 94 MG/DL (74-106) 87 MG/DL (74-106) 78 MG/DL (74-106) Calcium Level 7.8 MG/DL (8.5-10.1) 7.6 MG/DL (8.5-10.1) 7.4 MG/DL (8.5-10.1) Phosphorus Level 3.0 MG/DL (2.5-4.9) Magnesium Level 2.0 MG/DL (1.8-2.4) Total Bilirubin 0.4 MG/DL (0.2-1.0) Aspartate Amino Transf (AST/SGOT) 15 U/L (15-37) Alanine Aminotransferase (ALT/SGPT) 8 U/L (12-78) Alkaline Phosphatase 179 U/L (46-116) Total Protein 5.8 G/DL (6.4-8.2) Albumin 1.4 G/DL (3.4-5.0) Globulin 4.4 g/dL Albumin/Globulin Ratio 0.3 (1.0-2.7) Height (Feet): 5 Height (Inches): 3.00 Weight (Pounds): 155 Objective Gen: nad Pulm: Ctab Cardiovascular: RSR Abdomen: soft, flat, non-tender, present bowel sounds ext-int drain Extremities: no edema, no tenderness, no cyanosis Roberto Davidson MD Feb 11, 2019 08:19
--- NOTE | 2019-02-11 08:56 | General Progress Note ---
Assessment/Plan Assessment/Plan: (1) Intractable abdominal pain (2) Pancreatic cancer We will continue the Neurontin and Fentanyl patch We will discontinue Dilaudid and start [place] 10/325mg PO 1 tab Q4H PRN severe pain D/w Dr. Gonzales and he concurred. Subjective Date patient seen: Feb 11, 2019 Time patient seen: 08:00 - am Allergies: Coded Allergies: No Known Allergies (Unverified , 01/12/19) Subjective REVIEW OF SYSTEMS: Denies rash, fever, chills, sweating, dizziness, drowsiness, blurred vision, sore throat, change in weight. No shortness of breath or chest pain. No bowel or bladder incontinence. She is complaining of abdominal pain. SUBJECTIVE: Patient reports pain at a moderate level. She has tolerated the pain on the Fentanyl patch and has requested one dose of Dilaudid in the last 24hrs. No new complaints at this time. D/w patient about changing the dilaudid to [place] and she seems to understand Objective Last 24 Hour Vital Signs Date Time Temp Pulse Resp B/P (MAP) Pulse Ox O2 Delivery O2 Flow Rate FiO2 02/11/19 04:00 98.4 75 18 123/73 (90) 99 02/11/19 00:00 98.3 76 18 120/76 (91) 97 02/10/19 20:40 Room Air 02/10/19 20:00 98.0 78 20 115/74 (88) 98 02/10/19 16:00 97.8 81 18 119/82 (94) 97 02/10/19 12:00 98.7 83 18 115/75 (88) 98 02/10/19 09:00 Room Air Intake and Output 02/10/19 02/11/19 19:00 07:00 Intake Total 1140 ml 155 ml Output Total 350 ml 550 ml Balance 790 ml -395 ml Intake Oral 1040 ml IV Total 100 ml 155 ml Other 350 ml 550 ml # Voids 7 2 # Bowel Movements 5 2 Laboratory Tests 02/11/19 05:00: White Blood Count 10.0, Red Blood Count 3.04L, Hemoglobin 9.4L, Hematocrit 28.8L , Mean Corpuscular Volume 95, Mean Corpuscular Hemoglobin 31.1H, Mean Corpuscular Hemoglobin Concent 32.8, Red Cell Distribution Width 16.1H, Platelet Count 629H, Mean Platelet Volume 5.5L, Neutrophils (%) (Auto) 68.3, Lymphocytes (%) (Auto) 16.5L, Monocytes (%) (Auto) 10.0, Eosinophils (%) (Auto) 3.7H, Basophils (%) (Auto) 1.6, Sodium Level 138, Potassium Level 3.6, Chloride Level 106, Carbon Dioxide Level 29, Anion Gap 3L, Blood Urea Nitrogen 4L, Creatinine 1.0, Estimat Glomerular Filtration Rate 56.2, Glucose Level 78, Calcium Level 7.4L Height (Feet): 5 Height (Inches): 3.00 Weight (Pounds): 155 Objective GENERAL: Alert, awake, and oriented. LUNGS: Clear bilaterally. HEART: S1, S2 regular. ABDOMEN: Tenderness to palpation with biliary stent noted. BACK: Range of motion is decreased in flexion, extension. EXTREMITIES: No cyanosis. No clubbing. No edema. NEURO: No changes. Doug Reid Feb 11, 2019 08:56
[2019-02-11] MEDS ORDERED: HYDROcodone/Acetamin 10/325 tab ORAL PRN (09:00)
[2019-02-11] MEDS: Spironolactone 25mg tab ORAL SCH (09:05)
--- NOTE | 2019-02-11 09:15 | General Progress Note ---
Assessment/Plan Problem List: (1) SOB (shortness of breath) ICD Codes: R06.02 - Shortness of breath SNOMED: 692226907 (2) Nausea & vomiting ICD Codes: R11.2 - Nausea with vomiting, unspecified SNOMED: 64314370 (3) Malnutrition ICD Codes: E46 - Unspecified protein-calorie malnutrition SNOMED: 50785842 (4) UTI (urinary tract infection) ICD Codes: N39.0 - Urinary tract infection, site not specified SNOMED: 20970028 (5) Abdominal pain ICD Codes: R10.9 - Unspecified abdominal pain SNOMED: 21003668 (6) Biliary drain displacement ICD Codes: T85.520A - Displacement of bile duct prosthesis, initial encounter SNOMED: 667981360 (7) Pancreatic cancer ICD Codes: C25.9 - Malignant neoplasm of pancreas, unspecified SNOMED: 730403512 Status: unchanged Assessment/Plan: pt diet pain control abx cbc bmp am dc plan snf Subjective Constitutional: Reports: weakness Allergies: Coded Allergies: No Known Allergies (Unverified , 01/12/19) All Systems: reviewed and negative except above Subjective calm sleepy Objective Last 24 Hour Vital Signs Date Time Temp Pulse Resp B/P (MAP) Pulse Ox O2 Delivery O2 Flow Rate FiO2 02/11/19 04:00 98.4 75 18 123/73 (90) 99 02/11/19 00:00 98.3 76 18 120/76 (91) 97 02/10/19 20:40 Room Air 02/10/19 20:00 98.0 78 20 115/74 (88) 98 02/10/19 16:00 97.8 81 18 119/82 (94) 97 02/10/19 12:00 98.7 83 18 115/75 (88) 98 Intake and Output 02/10/19 02/11/19 19:00 07:00 Intake Total 1140 ml 155 ml Output Total 350 ml 550 ml Balance 790 ml -395 ml Intake Oral 1040 ml IV Total 100 ml 155 ml Other 350 ml 550 ml # Voids 7 2 # Bowel Movements 5 2 Laboratory Tests 02/11/19 05:00: White Blood Count 10.0, Red Blood Count 3.04L, Hemoglobin 9.4L, Hematocrit 28.8L , Mean Corpuscular Volume 95, Mean Corpuscular Hemoglobin 31.1H, Mean Corpuscular Hemoglobin Concent 32.8, Red Cell Distribution Width 16.1H, Platelet Count 629H, Mean Platelet Volume 5.5L, Neutrophils (%) (Auto) 68.3, Lymphocytes (%) (Auto) 16.5L, Monocytes (%) (Auto) 10.0, Eosinophils (%) (Auto) 3.7H, Basophils (%) (Auto) 1.6, Sodium Level 138, Potassium Level 3.6, Chloride Level 106, Carbon Dioxide Level 29, Anion Gap 3L, Blood Urea Nitrogen 4L, Creatinine 1.0, Estimat Glomerular Filtration Rate 56.2, Glucose Level 78, Calcium Level 7.4L Height (Feet): 5 Height (Inches): 3.00 Weight (Pounds): 155 General Appearance: lethargic EENT: normal ENT inspection Neck: normal alignment Cardiovascular: normal peripheral pulses, normal rate, regular rhythm Respiratory/Chest: chest wall non-tender, lungs clear, normal breath sounds Abdomen: normal bowel sounds, non tender, soft Extremities: normal inspection Edema: no edema noted Arm (L), no edema noted Arm (R), no edema noted Leg (L), no edema noted Leg (R), no edema noted Pedal (L), no edema noted Pedal (R), no edema noted Generalized Neurologic: motor weakness Skin: normal pigmentation, warm/dry Elvis Luke DO Feb 11, 2019 09:15
--- NOTE | 2019-02-11 09:43 | General Progress Note ---
Assessment/Plan Status: unchanged Assessment/Plan: (1) Pancreatic cancer ICD Codes: C25.9 - Malignant neoplasm of pancreas, unspecified SNOMED: 151230799 (2) Biliary drain displacement ICD Codes: T85.520A - Displacement of bile duct prosthesis, initial encounter SNOMED: 458056026 (3) Abdominal pain ICD Codes: R10.9 - Unspecified abdominal pain SNOMED: 61988986 Status: unchanged Assessment/Plan Abdominal pelvis CT reviewed 1. Appropriately positioned percutaneous left biliary drain with mild intrahepatic biliary ductal dilatation. 2. Ill-defined pancreatic head/proximal body mass, likely corresponding to stated history of pancreatic neoplasm. Please note evaluation of size and vascular involvement of pancreatic masses is incomplete prior examinations and without multiphasic pancreatic protocol. 3. 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 SMV confluence is not visualized. 4. Color wall thickening with pericholecystic fluid; in the absence of distended gallbladder, these findings are critical for acute pancreatitis and clinical correlation is recommended. No plans for GI procedures at this time. Symptomatic treatment surgical recommendations, no interventions at this time Follow-up pain management recommendations ppi Trend LFTs We will follow-up Subjective ROS Limited/Unobtainable: Yes Allergies: Coded Allergies: No Known Allergies (Unverified , 01/12/19) Subjective constipated Objective Last 24 Hour Vital Signs Date Time Temp Pulse Resp B/P (MAP) Pulse Ox O2 Delivery O2 Flow Rate FiO2 02/11/19 04:00 98.4 75 18 123/73 (90) 99 02/11/19 00:00 98.3 76 18 120/76 (91) 97 02/10/19 20:40 Room Air 02/10/19 20:00 98.0 78 20 115/74 (88) 98 02/10/19 16:00 97.8 81 18 119/82 (94) 97 02/10/19 12:00 98.7 83 18 115/75 (88) 98 Intake and Output 02/10/19 02/11/19 19:00 07:00 Intake Total 1140 ml 155 ml Output Total 350 ml 550 ml Balance 790 ml -395 ml Intake Oral 1040 ml IV Total 100 ml 155 ml Other 350 ml 550 ml # Voids 7 2 # Bowel Movements 5 2 Laboratory Tests 02/11/19 05:00: White Blood Count 10.0, Red Blood Count 3.04L, Hemoglobin 9.4L, Hematocrit 28.8L , Mean Corpuscular Volume 95, Mean Corpuscular Hemoglobin 31.1H, Mean Corpuscular Hemoglobin Concent 32.8, Red Cell Distribution Width 16.1H, Platelet Count 629H, Mean Platelet Volume 5.5L, Neutrophils (%) (Auto) 68.3, Lymphocytes (%) (Auto) 16.5L, Monocytes (%) (Auto) 10.0, Eosinophils (%) (Auto) 3.7H, Basophils (%) (Auto) 1.6, Sodium Level 138, Potassium Level 3.6, Chloride Level 106, Carbon Dioxide Level 29, Anion Gap 3L, Blood Urea Nitrogen 4L, Creatinine 1.0, Estimat Glomerular Filtration Rate 56.2, Glucose Level 78, Calcium Level 7.4L Height (Feet): 5 Height (Inches): 3.00 Weight (Pounds): 155 General Appearance: alert EENT: PERRL/EOMI Neck: supple Cardiovascular: normal rate Respiratory/Chest: decreased breath sounds Abdomen: normal bowel sounds, non tender, soft Extremities: non-tender Indra Rocha MD Feb 11, 2019 09:43
--- NOTE | 2019-02-11 09:45 | NUR ---
NURSE NOTES: Spoke with Dr Rocha, informed him that patient just had a very soft bowel movement this morning. Dr Rocha instructed to stop all laxatives.
--- NOTE | 2019-02-11 09:50 | NUR ---
PT NOTE Attempted to see patient for PT treatment. Patient declining PT treatment for today, states she is "wiped out". Discussed with Rosa RN, asked RN to notify PT if patient decides later that she would like to participate.
--- NOTE | 2019-02-11 10:19 | NUR ---
P.T WEEKLY PROGRESS NOTES: Patient being seen by PT for therapeutic exercises, ADL/functional mobility training, balance training and gait training. Patient continues to be limited by pain, fatigue and weakness, and has declined PT on several occasions. Patient requires CGA/min assist for bed mobility and for transfers. Patient has increased her ambulation distance/endurance up to 120 ft with the use of a FWW. Patient will continue to benefit from skilled inpatient PT intervention to progress level of activity as tolerated. Recommend SNF for further rehab intervention vs home with family/caregiver assistance and home PT at discharge once medically cleared by .
--- NOTE | 2019-02-11 11:16 | NUR ---
*-* INSURANCE *-* updated CLINICALS HAVE BEEN FAXED TO: REF#[id number] - FOR TRACKING PURPOSES THIS IS SHARED RISK NO CM ASSIGNED PH#[phone] FAX#[phone] [facility]#[id number] CM: TAMMY #[phone] EXT [id number] FAX#[phone] REVIEWS/CLINICALS
--- NOTE | 2019-02-11 11:30 | NUR ---
NURSE NOTES: Patient for discharge to day to [facility] and rehab. Gave report to Hany.
[2019-02-11 12:00] VITALS: BP 117/70
[2019-02-11] MEDS ORDERED: HYDROCODON-ACE1 EA13 ORAL (12:16)
[2019-02-11] MEDS ORDERED: NARCAN4 MG NS (12:18)
--- NOTE | 2019-02-11 13:21 | Nephrology Progress Note ---
Assessment/Plan Problem List: (1) Electrolyte abnormality (2) Pancreatic cancer (3) Biliary drain displacement (4) Abdominal pain (5) Malnutrition Assessment HypoKalemia HypoNatremia Abdominal pain. Nausea. Vomiting. UTI. Pancreatic cancer. Biliary drain displacement Malnutrition. 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 Subjective ROS Limited/Unobtainable: No Constitutional: Reports: malaise, weakness Objective Objective Last 24 Hour Vital Signs Date Time Temp Pulse Resp B/P (MAP) Pulse Ox O2 Delivery O2 Flow Rate FiO2 02/11/19 12:00 97.9 88 17 117/70 (86) 100 02/11/19 09:00 Room Air 02/11/19 08:00 97.9 72 16 107/86 (93) 99 02/11/19 04:00 98.4 75 18 123/73 (90) 99 02/11/19 00:00 98.3 76 18 120/76 (91) 97 02/10/19 20:40 Room Air 02/10/19 20:00 98.0 78 20 115/74 (88) 98 02/10/19 16:00 97.8 81 18 119/82 (94) 97 Intake and Output 02/10/19 02/11/19 19:00 07:00 Intake Total 1140 ml 155 ml Output Total 350 ml 550 ml Balance 790 ml -395 ml Intake Oral 1040 ml IV Total 100 ml 155 ml Other 350 ml 550 ml # Voids 7 2 # Bowel Movements 5 2 Laboratory Tests 02/11/19 05:00: White Blood Count 10.0, Red Blood Count 3.04L, Hemoglobin 9.4L, Hematocrit 28.8L , Mean Corpuscular Volume 95, Mean Corpuscular Hemoglobin 31.1H, Mean Corpuscular Hemoglobin Concent 32.8, Red Cell Distribution Width 16.1H, Platelet Count 629H, Mean Platelet Volume 5.5L, Neutrophils (%) (Auto) 68.3, Lymphocytes (%) (Auto) 16.5L, Monocytes (%) (Auto) 10.0, Eosinophils (%) (Auto) 3.7H, Basophils (%) (Auto) 1.6, Sodium Level 138, Potassium Level 3.6, Chloride Level 106, Carbon Dioxide Level 29, Anion Gap 3L, Blood Urea Nitrogen 4L, Creatinine 1.0, Estimat Glomerular Filtration Rate 56.2, Glucose Level 78, Calcium Level 7.4L Height (Feet): 5 Height (Inches): 3.00 Weight (Pounds): 155 General Appearance: no apparent distress Respiratory/Chest: decreased breath sounds Abdomen: distended Objective no change Kapil Turcios MD Feb 11, 2019 13:21
--- NOTE | 2019-02-11 13:28 | Infectious Diseases Prog Note ---
Assessment/Plan Assessment/Plan Fever 01/13, SP Leukocytosis, fluctuating 01/14 bcx ng tumor related? Ileus related? biloma related? atelectasis? 01/24 Indium scan: Diffusely abnormal bowel uptake. Given findings on recent CT scan, this most likely represents enteritis, most likely infectious. Abnormal uptake in the face or upper neck to the left of midline, exact location uncertain. Consider neck CT for better characterization. Mildly prominent pulmonary uptake, significance doubted. On further review the images, activity in the right midabdomen is greater than would be accounted for acute spine hepatic activity, and there is significant activity inferior to the right lobe of the liver in the anterior abdomen. This correlates with a large loculated fluid collection demonstrated on recent CT scan of 01/20/2019, and may indicate infection of this collection. The smaller subcapsular collection in the posterior right hepatic lobe is difficult to differentiate from normal liver activity on this exam, so it is not possible to assess for the presence or absence of abnormal activity in this. 01/27 US: Aspiration of posterior hepatic subcapsular collection, yielding serous fluid which does not appear grossly infected. No drainage catheter placed , therefore, but a specimen was sent to the lab for analysis. Placement of 8.5 [place] pigtail drainage catheter in anterior right lower quadrant intraperitoneal collection. This yielded borderline purulent appearing body brown fluid. Specimen sent to lab for analysis. 01/27 fluid: 76K WBC(92% PMN). cx: 3+ E coli 02/01: Successful ultrasound-guided placement of a percutaneous drain within a fluid collection that was previously infected and previously addressed by a percutaneous drain which had accidentally fallen out yesterday. PNA, CAP? -CXR: Patchy consolidation in the right lower lung, concerning for pneumonia. Mild pulmonary vascular congestion. -flu swab negative urine legionella antigen negative Abdominal pain Pancreatitis? lipase negative 01/12 CT abd/p: Appropriately positioned percutaneous left biliary drain with mild intrahepatic biliary ductal dilatation. Ill-defined pancreatic head/ proximal body mass, likely corresponding to stated history of pancreatic neoplasm. Please note evaluation of size and vascular involvement of pancreatic masses is incomplete prior examinations and without multiphasic pancreatic protocol. 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 SMV confluence is not visualized. Gallbladder wall thickening with pericholecystic fluid; in the absence of distended gallbladder, these findings are critical for acute pancreatitis and clinical correlation is recommended. 01/19 US Abd: Transhepatic biliary drain noted. 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 Abnormal liver with area of peripheral hypoechogenicity along the posterior right lobe margin. Suggest further evaluation with contrast CT. Obscured pancreas and aorta due to bowel gas. Trace ascites 01/20 CT A/P: Interval development of moderate small bowel dilatation. Transition to relatively decompressed terminal ileum demonstrated indicating this is probably a mechanical bowel obstruction. Pneumatosis suspected within one of the proximal small bowel segments in the upper abdomen. No evidence of perforation. Development of multiloculated ascites with prominent collections contiguous with the caudal end of the right lobe of the liver capsule, Morison's pouch and inferior to the right kidney. Other generalized mild ascites noted as well. Internal/external transhepatic biliary drainage catheter in good position. No imaging evidence for catheter malfunction or biliary obstruction. Right basilar consolidation versus atelectasis. Correlate for pneumonia. Trace bilateral pleural effusions. Anasarca recently diagnosed pancreatic CA 11/2018 - s/p biliary drain 1 week [employer] at [facility] - 1st chemotherapy treatment 01/10/19 tobacco abuse Plan: Ceftriaxone, flagyl #14...can be DCed on ciprofloxacin and flagyl PO for 7 days with repeat imaging at the end of 7 days. 01/30 SP Meropenem #6 01/25 SP Ceftriaxone #3, flagyl #1, vancomycin #11 01/22 SP Azithromycin #7 01/23 SP Zosyn #8 01/17 DC Tamiflu #2 -Monitor CBC/CMP, temperatures -aspiration precautions discussed with RN Thank you for this consultation. Will continue to follow along with you. Subjective Allergies: Coded Allergies: No Known Allergies (Unverified , 01/12/19) Subjective Afebrile. RA. Leukocytosis resolved. Pt reports feeling fatigued Objective Vital Signs Last 24 Hour Vital Signs Date Time Temp Pulse Resp B/P (MAP) Pulse Ox O2 Delivery O2 Flow Rate FiO2 02/11/19 12:00 97.9 88 17 117/70 (86) 100 02/11/19 09:00 Room Air 02/11/19 08:00 97.9 72 16 107/86 (93) 99 02/11/19 04:00 98.4 75 18 123/73 (90) 99 02/11/19 00:00 98.3 76 18 120/76 (91) 97 02/10/19 20:40 Room Air 02/10/19 20:00 98.0 78 20 115/74 (88) 98 02/10/19 16:00 97.8 81 18 119/82 (94) 97 Height (Feet): 5 Height (Inches): 3.00 Weight (Pounds): 155 Objective Gen: NAD. calm CV: RRR. no rubs Resp: RRR. unlabored. Abd: hypoactive BS+. soft Ext: no edema Neuro: alert. Laboratory Tests Test 02/11/19 05:00 White Blood Count 10.0 K/UL (4.8-10.8) Red Blood Count 3.04 M/UL (4.20-5.40) L Hemoglobin 9.4 G/DL (12.0-16.0) L Hematocrit 28.8 % (37.0-47.0) L Mean Corpuscular Volume 95 FL (80-99) Mean Corpuscular Hemoglobin 31.1 PG (27.0-31.0) H Mean Corpuscular Hemoglobin Concent 32.8 G/DL (32.0-36.0) Red Cell Distribution Width 16.1 % (11.6-14.8) H Platelet Count 629 K/UL (150-450) H Mean Platelet Volume 5.5 FL (6.5-10.1) L Neutrophils (%) (Auto) 68.3 % (45.0-75.0) Lymphocytes (%) (Auto) 16.5 % (20.0-45.0) L Monocytes (%) (Auto) 10.0 % (1.0-10.0) Eosinophils (%) (Auto) 3.7 % (0.0-3.0) H Basophils (%) (Auto) 1.6 % (0.0-2.0) Sodium Level 138 MMOL/L (136-145) Potassium Level 3.6 MMOL/L (3.5-5.1) Chloride Level 106 MMOL/L (98-107) Carbon Dioxide Level 29 MMOL/L (21-32) Anion Gap 3 mmol/L (5-15) L Blood Urea Nitrogen 4 mg/dL (7-18) L Creatinine 1.0 MG/DL (0.55-1.30) Estimat Glomerular Filtration Rate 56.2 mL/min (>60) Glucose Level 78 MG/DL (74-106) Calcium Level 7.4 MG/DL (8.5-10.1) L Current Medications Medications (Trade) Dose Ordered Sig/Zuleima Route PRN Reason Start Time Stop Time Status Last Admin Dose Admin Acetaminophen (Tylenol) 650 mg Q8H PRN ORAL Mild Pain/Temp > 100.5 01/12/19 17:30 02/11/19 17:29 02/11/19 06:45 Acetaminophen/ Hydrocodone Bitart ([place] ) 1 tab Q4H PRN ORAL severe pain 02/11/19 09:00 02/18/19 08:59 Ceftriaxone Sodium 1 gm/ Dextrose 55 ml @ 110 mls/hr Q24H IVPB 01/30/19 22:00 02/17/19 23:59 02/10/19 20:52 Dextrose (Dextrose 50%) 25 ml Q30M PRN IV Hypoglycemia 01/12/19 13:45 03/12/19 13:44 Dextrose (Dextrose 50%) 50 ml Q30M PRN IV Hypoglycemia 01/12/19 13:45 03/12/19 13:44 Enoxaparin Sodium (Lovenox) 60 mg Q12HR@0600,1800 SUBQ 01/20/19 18:00 02/19/19 17:59 02/11/19 06:28 Ergocalciferol (Drisdol) 50,000 intlu ONCE A WEEK ORAL 02/05/19 18:00 03/07/19 17:59 02/05/19 18:00 Fentanyl (Duragesic) 1 patch Q72H TDERMAL 01/25/19 12:00 02/14/19 11:59 02/09/19 12:26 Gabapentin (Neurontin) 300 mg THREE TIMES A DAY ORAL 01/19/19 18:00 02/18/19 17:59 02/11/19 09:04 Metronidazole 100 ml @ 100 mls/hr Q8HR IVPB 01/30/19 15:30 02/17/19 23:59 02/11/19 13:12 Miscellaneous Medication (fentaNYL Destruction) 1 ea Q72H MISC 01/25/19 11:59 02/24/19 11:58 02/09/19 12:26 Naloxone HCl (Narcan) 0.1 mg Q5M PRN IV Sedation scale 3 or 4 01/24/19 09:00 02/23/19 08:54 Ondansetron HCl (Zofran) 4 mg Q6H PRN IVP Nausea & Vomiting 01/12/19 13:45 03/12/19 13:44 02/11/19 10:16 Pantoprazole (Protonix) 40 mg EVERY 12 HOURS ORAL 01/27/19 21:00 02/26/19 20:59 02/11/19 09:04 Potassium Chloride (K-Dur) 40 meq DAILY ORAL 02/12/19 09:00 03/14/19 08:59 Potassium Chloride (K-Dur) 40 meq ONCE ORAL 02/11/19 13:30 02/11/19 15:00 Quetiapine Fumarate (SEROqueL) 25 mg Q12HR ORAL 02/10/19 21:00 03/12/19 20:59 02/11/19 09:04 Simethicone (Mylicon) 80 mg BIDPRN PRN ORAL gas 01/18/19 21:45 02/17/19 21:44 02/10/19 23:21 Spironolactone (Aldactone) 25 mg DAILY ORAL 02/08/19 09:30 03/10/19 09:29 02/11/19 09:05 Zolpidem Tartrate (Ambien) 5 mg HSPRN PRN ORAL Insomnia 02/03/19 21:15 02/17/19 21:14 02/09/19 23:54 Catalina Kirby MD Feb 11, 2019 13:28
--- NOTE | 2019-02-11 14:30 | NUR ---
NURSE NOTES: Patient for discharge to [facility] and rehab, being picked up by ambulance personnel. All belongings accounted for. Pharmacy meds given to patient. Discharge instructions given, verbalized understanding. Biliary drain intact, output drained and measured. No new skin issues noted. ID band removed. IV line removed, tolerated well. Accompanied by ambulance personnel to SNF.
--- NOTE | 2019-02-11 15:28 | Surgery Progress Note ---
Surgery Progress Note Subjective Symptoms: improved Objective Last 24 Hour Vital Signs Date Time Temp Pulse Resp B/P (MAP) Pulse Ox O2 Delivery O2 Flow Rate FiO2 02/11/19 12:00 97.9 88 17 117/70 (86) 100 02/11/19 09:00 Room Air 02/11/19 08:00 97.9 72 16 107/86 (93) 99 02/11/19 04:00 98.4 75 18 123/73 (90) 99 02/11/19 00:00 98.3 76 18 120/76 (91) 97 02/10/19 20:40 Room Air 02/10/19 20:00 98.0 78 20 115/74 (88) 98 02/10/19 16:00 97.8 81 18 119/82 (94) 97 I&O Intake and Output 02/10/19 02/11/19 19:00 07:00 Intake Total 1140 ml 155 ml Output Total 350 ml 550 ml Balance 790 ml -395 ml Intake Oral 1040 ml IV Total 100 ml 155 ml Other 350 ml 550 ml # Voids 7 2 # Bowel Movements 5 2 Dressing: other Wound: other Drains: other Cardiovascular: RSR Respiratory: clear Abdomen: soft, flat, non-tender, present bowel sounds Extremities: no edema, no tenderness, no cyanosis Laboratory Tests Test 02/11/19 05:00 White Blood Count 10.0 K/UL (4.8-10.8) Red Blood Count 3.04 M/UL (4.20-5.40) L Hemoglobin 9.4 G/DL (12.0-16.0) L Hematocrit 28.8 % (37.0-47.0) L Mean Corpuscular Volume 95 FL (80-99) Mean Corpuscular Hemoglobin 31.1 PG (27.0-31.0) H Mean Corpuscular Hemoglobin Concent 32.8 G/DL (32.0-36.0) Red Cell Distribution Width 16.1 % (11.6-14.8) H Platelet Count 629 K/UL (150-450) H Mean Platelet Volume 5.5 FL (6.5-10.1) L Neutrophils (%) (Auto) 68.3 % (45.0-75.0) Lymphocytes (%) (Auto) 16.5 % (20.0-45.0) L Monocytes (%) (Auto) 10.0 % (1.0-10.0) Eosinophils (%) (Auto) 3.7 % (0.0-3.0) H Basophils (%) (Auto) 1.6 % (0.0-2.0) Sodium Level 138 MMOL/L (136-145) Potassium Level 3.6 MMOL/L (3.5-5.1) Chloride Level 106 MMOL/L (98-107) Carbon Dioxide Level 29 MMOL/L (21-32) Anion Gap 3 mmol/L (5-15) L Blood Urea Nitrogen 4 mg/dL (7-18) L Creatinine 1.0 MG/DL (0.55-1.30) Estimat Glomerular Filtration Rate 56.2 mL/min (>60) Glucose Level 78 MG/DL (74-106) Calcium Level 7.4 MG/DL (8.5-10.1) L Plan Problems: (1) Abdominal pain Assessment & Plan: 63-year-old female patient with history of recently diagnosed pancreatic cancer in November 2018 presented to the emergency room at [facility] [place] with complaint of abdominal pain for approximately 1 hour. Patient is status post a biliary drain placement at [facility] approximately 1 week ago. She reported that she had a first treatment of chemotherapy this past Thursday. The patient denied any nausea vomiting, denies any constipation or diarrhea. She states her pain medication was unable to relieve her pain. no fever or chills. labs as below. C Tnoted. surgery called to assist with care and management. tube checked Impression: Diffusely abnormal bowel uptake. Given findings on recent CT scan, this most likely represents enteritis, most likely infectious. Abnormal uptake in the face or upper neck to the left of midline, exact location uncertain. Consider neck CT for better characterization Mildly prominent pulmonary uptake, significance doubted okay for diet tube to drain IV abx d/c planning for SNF f/u with pcp / onc outpatient stable otherwise from surgical standpoint no acute surgical intervention planned Probably has extensive tumor burden given interventions and findings noted. No surgical recommendation at this time. Possible that fluid collection in case in the abdomen infected but to operate on this would be ill advised at this time and patient's current condition. Continue with antibiotics iv fluids trend labs will monitor and follow with exam thank you (2) Biliary drain displacement Assessment & Plan: Daughter was able to inform me with a lot of history. Seems patient unresectable initially and attempted biliary drain placed endoscopically but unsuccessful. A external biliary drain was placed by radiology. Would patient was getting her Port-A-Cath placed a another radiologist felt he could place a internal/external biliary drain and he was able to successfully place a internal/external biliary drain. Had the trade Since. Fell off and she has been without it to drainage recently. In evaluating the trade she has some bilious output from the drain and on imaging drain looks to be appropriately placed. Labs reviewed stable. drain placed to gravity as leaking Drain putting out a ton since placed on 2 bag IMPRESSION: 1. Appropriately positioned percutaneous left biliary drain with mild intrahepatic biliary ductal dilatation. 2. Ill-defined pancreatic head/proximal body mass, likely corresponding to stated history of pancreatic neoplasm. Please note evaluation of size and vascular involvement of pancreatic masses is incomplete prior examinations and without multiphasic pancreatic protocol. 3. 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 SMV confluence is not visualized. 4. Color wall thickening with pericholecystic fluid; in the absence of distended gallbladder, these findings are critical for acute pancreatitis and clinical correlation is recommended. Transhepatic biliary drain noted. 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 Abnormal liver with area of peripheral hypoechogenicity along the posterior right lobe margin. Suggest further evaluation with contrast CT. Obscured pancreas and aorta due to bowel gas. . Interval development of moderate small bowel dilatation. Transition to relatively decompressed terminal ileum demonstrated indicating this is probably a mechanical bowel obstruction. Pneumatosis suspected within one of the proximal small bowel segments in the upper abdomen. No evidence of perforation. Development of multiloculated ascites with prominent collections contiguous with the caudal end of the right lobe of the liver capsule, Morison's pouch and inferior to the right kidney. Other generalized mild ascites noted as well. Internal/external transhepatic biliary drainage catheter in good position. No imaging evidence for catheter malfunction or biliary obstruction. CT noted. likely internal leakage from internal external drain as it was noted to be backing put few days ago hence placed on drainage bag recommend outpatient f/u with oncology and her GI at primary facility to discuss placement of internal metallic larger drain and remove internal / external drain s/p abd drain placement micro noted labs improved on abx s/p new drain 02/01/19 - removed 02/07 / d/c to SNF. f/u with outpatient onc f/u with outpatient GI for consideration of metallic biliary drain now that she has internal external thank you (3) Pancreatic cancer Assessment & Plan: Pancreatic cancer, non-resectable, based on patient's info. Had a Abdominal pelvis CT reviewed 1. Appropriately positioned percutaneous left biliary drain with mild intrahepatic biliary ductal dilatation. 2. Ill- defined pancreatic head/proximal body mass, likely corresponding to stated history of pancreatic neoplasm. Please note evaluation of size and vascular involvement of pancreatic masses is incomplete prior examinations and without multiphasic pancreatic protocol. 3. 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 She has already started rx Additional Comments d/c Jim Gates Feb 11, 2019 15:28
--- NOTE | 2019-02-13 16:00 | Discharge Summary ---
Discharge Summary Discharge Summary _ DATE OF ADMISSION: 01/12/2019 DATE OF DISCHARGE: 02/11/2019 DISCHARGED BY: Dr. Elvis Luke CONSULTANTS: Dr. Indra Turcios BRIEF HOSPITAL COURSE: Patient is a 63-year-old female, who lives at home, who was diagnosed with pancreatic cancer, and prior to admission. She is status post biliary drain placement at [facility] a week prior to admission. She was eventually started on her first chemotherapy. She came to [place] for evaluation of abdominal pain, nausea, vomiting and shortness of breath. Upon evaluation at the ED, vital signs were stable. Blood work showed elevated LFTs. CT scan revealed evidence of pancreatic mass. Patient had intractable pain and was given Dilaudid and morphine for pain control. She was then admitted for evaluation of pancreatic cancer and intractable pain. Surgical evaluation was done. Biliary drain was properly in place. No acute surgical intervention planned. She was started on diet. Pain management was consulted. She was started empirically on Zosyn and IV vancomycin. She was given fentanyl and Dilaudid. Patient had electrolyte imbalance. She was given IV hydration. Potassium was repleted. She was given isotonic IV. Chest x-ray showed patchy consolidation of the right lower lung, concerning for pneumonia. Flu swab was negative. Tamiflu was discontinued. Patient has non-resectable pancreatic cancer. She was closely followed by oncologist. Recommend to continue with chemotherapy and radiation therapy with . CA 199 was elevated to 688. Patient has poor prognosis. If unable to get chemotherapy therapy, likely to deteriorate, may be hospice candidate. Patient has portal vein thrombosis, may be due to tumor encasement. This could be contributory for abdominal pain. Appears to be chronic portal vein thrombosis on imaging. Patient was given Lovenox. Okay to transition to oral NOAC once discharged. Repeat CT scan showed interval development of moderate small bowel dilatation. Probably mechanical bowel obstruction. No evidence of perforation. He also had findings suggestive of acute pancreatitis. Lipase was negative. He was given azithromycin for mycoplasma coverage. Antibiotic was discontinued and patient was given Flagyl. Blood culture did not isolate any growth. Sputum culture showed growth of E. coli. Indium scan showed abnormal bowel uptake. There was abnormal uptake in the face or upper neck to the left of midline. On 01/27/2019, he underwent aspiration/drainage of the posterior hepatic sub- capsular collection. Specimen was sent to the lab. Culture showed growth of E. coli. Unfortunately, drain fell off. On 02/01/2019, she again underwent ultrasound-guided placement of percutaneous drain. She was cleared for discharge continue on ciprofloxacin and Flagyl p.o. for 7 days and recommend repeat imaging at the end of 7 days. She was eventually discharged to SNF. FINAL DIAGNOSES: Recently diagnosed pancreatic CA Community-acquired pneumonia Portal vein thrombosis Thrombocytosis Transaminitis Possible pancreatitis Hypokalemia Hyponatremia Malnutrition Anemia Biliary drain displacement DISPOSITION: Patient was discharged to a SNF. DISCHARGE MEDICATIONS: Refer to discharge medication list I have been assigned to complete a discharge summary on this account, I was not involved with the patient's management.--LUDIVINA Kennedy Jacqueline Robles NP Feb 13, 2019 16:00
== END 2019-02-11 14:25 | DRG 720 ==
LOC: EDBD 08:18 → EMR 08:50 → 4E 11:30 → EDBEDREQ 12:24
PROC: 0F903ZX Drainage of Liver, Percutaneous Approach, Diagnostic (ICD-10-PCS; principal; 2019-01-27)
PROC: 0W9G30Z Drainage of Peritoneal Cavity with Drainage Device, Percutaneous Approach (ICD-10-PCS; principal; 2019-01-27)
PROC: 0W2GX0Z Change Drainage Device in Peritoneal Cavity, External Approach (ICD-10-PCS; 2019-02-01)
DX: A41.9 Sepsis, unspecified organism (principal); C25.0 Malignant neoplasm of head of pancreas; K85.90 Acute pancreatitis without necrosis or infection, unspecified; I81 Portal vein thrombosis; K56.699 Other intestinal obstruction unspecified as to partial versus complete obstruction; E46 Unspecified protein-calorie malnutrition; J18.9 Pneumonia, unspecified organism; T85.520A Displacement of bile duct prosthesis, initial encounter; E87.1 Hypo-osmolality and hyponatremia; N39.0 Urinary tract infection, site not specified; K76.89 Other specified diseases of liver; E87.6 Hypokalemia; R11.2 Nausea with vomiting, unspecified; R06.02 Shortness of breath; Z72.0 Tobacco use; G89.3 Neoplasm related pain (acute) (chronic); D64.81 Anemia due to antineoplastic chemotherapy
CPT/HCPCS: 36415; 71045; 71260; 74018; 74177; 75989; 76700; 78807; 80048; 80053; 80061; 80076; 80202; 81003; 82140; 82150; 82164; 82248; 82607; 82728; 82746; 82977; 83540; 83550; 83690; 83735; 83880; 84100; 84443; 84550; 85007; 85025; 85610; 85730; 86140; 86710; 87040; 87070; 87075; 87081; 87181; 87205; 89051; 93970; 96365; 96366; 96375; 99284; A9570; J2405; J7030; J8499